=== PATIENT | male | born 1970 | race Caucasian/White ===

== ENCOUNTER 2018-03-14 09:14 | Emergency (ER) | payer OTHER, MEDICAID, SELFPAY ==
--- NOTE | 2018-03-14 09:15 | ED.SKABFB ---
HPI - Skin/Abscess/Foreign Bdy General Chief complaint: Skin/Abscess/Foreign Body Stated complaint: OPEN ULCERS ON LEG AND FOOT Time Seen by Provider: 03/14/18 09:15 Source: patient Mode of arrival: ambulatory Limitations: no limitations History of Present Illness HPI narrative: Patient is a 47-year-old male with a history of diabetes and congestive heart failure here for evaluation of sores on his bilateral lower extremities. Patient states that just over a year ago he had similar symptoms. Was under the care wound care. He states that the sores improved tremendously. He has not seen his primary care doctor in over a year or wound care in over a year. He states that over the past several weeks if not the past several months he has noticed the return of the sores especially to his left lower extremity. He did take some leftover antibiotics that he had at home. He does not know what these antibiotics were. His cover the wounds with bandages. He came in today because he thinks that the wounds were getting worse. He has had fevers in the past but none today. Related Data Home Medications Medication Instructions Recorded Confirmed amlodipine 20 mg PO DAILY 03/14/18 03/14/18 carvedilol 25 mg PO BID 03/14/18 03/14/18 hydrochlorothiazide 25 mg PO DAILY 03/14/18 03/14/18 lisinopril 40 mg PO DAILY 03/14/18 03/14/18 metformin 1,000 mg PO BID 03/14/18 03/14/18 Previous Rx's Medication Instructions Recorded aspirin 81 mg PO QDAY #30 06/06/16 glipizide [Glucotrol XL] 10 mg PO BID #60 tab 09/08/16 doxycycline hyclate 100 mg PO BID 7 Days #14 tab 03/14/18 Allergies Allergy/AdvReac Type Severity Reaction Status Date / Time No Known Drug Allergies Allergy Verified 03/14/18 09:41 Review of Systems Constitutional Denies fever(s) Cardiovascular Denies chest pain and Denies dyspnea Respiratory Denies dyspnea Gastrointestinal Gastrointestinal: Denies abdominal pain Musculoskeletal Denies myalgias and Denies arthralgias Integumentary/Breasts Denies rash Comments: Wounds on bilateral lower extremities Neurologic Comments: Some decreased sensation to light touch bilateral lower extremities Hematologic/Lymphatic Comments: Not on anticoagulation Allergic/Immunologic Denies urticaria PFSH Medical History Diabetes mellitus (Acute) Congestive heart failure (Acute) Diabetes (Acute) Surgical History No pertinent past surgical history (Acute) Social History Smoking Status: Never smoker Social History Smoking Status: Never smoker Exam Initial Vital Signs Initial Vital Signs: Vital Signs Temperature 98 F 03/14/18 09:28 Pulse Rate 80 03/14/18 09:28 Respiratory Rate 18 03/14/18 09:28 Blood Pressure 183/108 H 03/14/18 09:28 Pulse Oximetry 100 03/14/18 09:28 Const General: cooperative, comfortable, well developed, well groomed and No acute distress Orientation: alert, awake and oriented x3 [facility] Head: normal to inspection and normocephalic Resp Effort & Inspection: normal respiratory effort Auscultation: clear to auscultation bilaterally Cardio Rate: regular rate Rhythm: regular rhythm Pulses: radial pulses present Skin Other: Patient with a 2 cm lesion on his right anterior tibia. Not draining. No surrounding erythema. Does have crusting. Patient also with a 6 cm x 2 cm open wound on the lateral aspect of his right lower extremity proximal to the lateral malleolus. No surrounding erythema. It is draining material. Patient with multiple calluses on his feet. Patient also with a 5 cm x 8 cm wound on his left ft. Lateral aspect. Just proximal to the 4th and 5th digits. Is draining. Has surrounding erythema that does extend up to the ankle. Neuro General: alert, awake and oriented x3 Speech: speech normal Sensory Exam: no sensory deficits noted Extrem Other: See skin section for wounds. Otherwise lower extremities 1+ pitting edema. Psych Appearance: grossly normal Course Vital Signs - 8 hr 03/14/18 09:28 Temperature 98 F Pulse Rate 80 Respiratory Rate 18 Blood Pressure 183/108 H Pulse Oximetry 100 MDM - Skin/Abscess/Foreign Bdy MDM Narrative Medical decision making narrative: Patient is nontoxic appearing. Does have open wounds on bilateral lower extremities. The wound on the top of his left lower extremity does appear to be infected secondary to the inflammation around it. Will start him on antibiotics. I do not feel he needs admitted for IV antibiotics. I contacted his primary care doctor who is Dr. Ovalles and was able to schedule the patient a follow-up appointment on March 21 at 1030 in the morning. Patient was informed of this follow-up appointment. Also able to schedule the patient a wound care clinic appointment for March 15 at 0830 in the morning. Patient was informed of this consult as well. Patient was given return precautions. He expressed understanding and agreement with plan Discharge Plan Departure Patient Disposition: Home Clinical Impression: Foot ulcer, left Qualifiers: Non-pressure ulcer stage: unspecified non-pressure ulcer stage Qualified Code(s): L97.529 - Non-pressure chronic ulcer of other part of left foot with unspecified severity Ulcer of right leg Qualifiers: Non-pressure ulcer stage: unspecified non-pressure ulcer stage Qualified Code(s): L97.919 - Non-pressure chronic ulcer of unspecified part of right lower leg with unspecified severity Instructions: How to Prevent Pressure Ulcers Activity Restrictions/Additional Instructions: You have an appointment tomorrow morning with the wound care clinic here at [facility]. Their phone number is [phone]. That appointment is at 0830 in the morning. You also have an appointment with Dr. Ovalles at the clinic over at [place] on March 21 at 1030 in the morning. I do suggest you keep this appointment. If you cannot make it be sure to call them to reschedule. Take the antibiotics as directed. Return to the emergency department for any new or worsening symptoms Prescriptions: New doxycycline hyclate 100 mg tablet 100 mg PO BID 7 Days Qty: 14 RF: 0 No Action aspirin 81 MG tablet,delayed release (DR/EC) 81 mg PO QDAY Qty: 30 RF: 0 glipizide [Glucotrol XL] 5 MG tablet extended release 24hr 10 mg PO BID Qty: 60 RF: 0 metformin 500 mg Tablet 1,000 mg PO BID RF: 0 carvedilol 25 mg Tablet 25 mg PO BID RF: 0 amlodipine 10 mg Tablet 20 mg PO DAILY RF: 0 hydrochlorothiazide 25 mg Tablet 25 mg PO DAILY RF: 0 lisinopril 40 mg Tablet 40 mg PO DAILY RF: 0 Referrals: Haroldo Mcclain PA-C [Primary Care Provider] -
[2018-03-14 09:28] VITALS: BP 183/108; PULSE 80; RESP 18; TEMP 36.6; O2SAT 100
[2018-03-14 09:30] VITALS: BP 157/90; PULSE 80; RESP 17; O2SAT 100
[2018-03-14 10:11] VITALS: BP 110/69; PULSE 71; RESP 20; O2SAT 100
--- NOTE | 2018-03-14 10:11 | PC.NURSE ---
Foam dressing placed to left foot and to right lower leg.
--- NOTE | 2018-03-14 10:12 | PC.NURSE ---
I called over to wound care and set up an appointment for him for tomorrow morning at 0830 am. patient aware.
[2018-03-14 10:13] VITALS: BP 110/69; PULSE 73; RESP 16; O2SAT 100
== END 2018-03-14 10:10 | disposition home or self-care (01) ==
PROVIDERS: Emergency Provider Emergency Medicine; PCP Physician Assistant
DX: L97.529 Non-pressure chronic ulcer of other part of left foot with unspecified severity (principal); L97.919 Non-pressure chronic ulcer of unspecified part of right lower leg with unspecified severity
CPT/HCPCS: 99282

== ENCOUNTER → 2018-03-15 10:06 | Outpatient (CLI) | payer OTHER, MEDICAID, SELFPAY | PROVIDERS: Visit Provider Family Medicine | DX: E11.621 Type 2 diabetes mellitus with foot ulcer (principal); L97.523 Non-pressure chronic ulcer of other part of left foot with necrosis of muscle; I87.311 Chronic venous hypertension (idiopathic) with ulcer of right lower extremity; L97.812 Non-pressure chronic ulcer of other part of right lower leg with fat layer exposed; L03.116 Cellulitis of left lower limb | CPT/HCPCS: 11042; 11043; 87070; 87075; 87077; 87147; 87186; 87205; 99213; 99214 ==

== ENCOUNTER 2018-03-15 10:09 | Inpatient (IN) | payer OTHER, MEDICAID, SELFPAY ==
[2018-03-15] VITALS (10 sets, daily range): BP systolic 134–179; BP diastolic 75–113; PULSE 67–82; RESP 16–20; TEMP 36.6–37.1; O2SAT 97–100; BMI 54.1
--- NOTE | 2018-03-15 | DI.MRI.S_ITS ---
PROCEDURE: MR FOOT LT WO/W CON INDICATIONS: left foot ulcers,poss osteomyelitis. TECHNIQUE: Noncontrast sagittal T1 spin echo and T2 fast spin echo with fat saturation, long-axis T1 spin echo and T2 fast spin echo with fat saturation; short-axis T1 spin echo, proton density fast spin echo, and T2 fast spin echo with fat saturation through the forefoot. Post-contrast short axis, long axis, and sagittal T1 spin echo with fat saturation through the forefoot. COMPARISON: [facility], CR, XR FOOT LT MIN 3V, 03/15/2018, 12:25. FINDINGS: Image quality: There is mild motion artifact. Bones and joints: There is abnormal marrow edema and enhancement within the 5th metatarsal distally as well as within the 5th proximal phalanx. There is associated bony cortical erosion laterally within the distal aspect of the 5th metatarsal. Mild associated periosteal edema and enhancement demonstrated. The findings are consistent with osteomyelitis. There is deformity of the 5th metatarsal with mild medial angulation and bony remodeling consistent with sequelae of a prior fracture. Remaining visualized osseous structures demonstrate no abnormal edema or enhancement to suggest other foci of osteomyelitis. No acute fractures or bone contusion. Soft tissues: There are soft tissue ulcers laterally in the distal forefoot at the level of the 5th metatarsophalangeal joint and dorsally at the level of the 5th proximal phalanx. There is extensive associated subcutaneous edema and enhancement consistent with cellulitis extending to the underlying bone. No discrete abscess collection identified. There is edema and fatty atrophy of the plantar musculature including the lumbrical muscles without associated enhancement. Findings may represent reactive changes, denervation changes, or less likely myositis. The visualized tendons appear intact. The Lisfranc ligament also appears intact. IMPRESSION: 1. Soft tissue ulcers with a dorsal and lateral aspects of the forefoot at the level of the 5th proximal phalanx and 5th metatarsophalangeal joint with underlying osteomyelitis involving the 5th metatarsal and 5th proximal phalanx.No discrete abscess collection identified. 2. Deformity of the 5th metatarsal distally consistent with sequelae of a prior fracture. Dictated by: Nemesio Foreman M.D. on 03/16/2018 at 17:00 Approved by: Nemesio Foreman M.D. on 03/16/2018 at 17:30
--- NOTE | 2018-03-15 10:58 | DI.RAD.S_ITS ---
PROCEDURE: XR CHEST 1V INDICATIONS: suspected sepsis TECHNIQUE: One view of the chest was acquired. COMPARISON: [facility], , CHEST 1 VIEW, 06/05/2016, 19:49. FINDINGS: Surgical changes and devices: None. Lungs and pleura: Lungs are clear. No pleural effusions or pneumothorax. Minimal increased vascularity. Mediastinum: Mediastinal contours appear normal. Heart size is borderline in size. Bones and chest wall: No suspicious bony lesions. Overlying soft tissues appear unremarkable. IMPRESSION: Minimal increased vascularity. Dictated by: Heidy Youngblood M.D. on 03/15/2018 at 11:24 Approved by: Heidy Youngblood M.D. on 03/15/2018 at 11:31
[2018-03-15] MEDS: SODIUM CHLORIDE 0.9% 1,000 ML 1000 ML IV (11:05)
[2018-03-15 11:06] LABS: INR 1.1 (0.9-1.3); Prothrombin Time 12.3 SECONDS (10.1-12.7)
[2018-03-15 11:07] LABS: Add Manual Diff / Slide Review NO; Basophils Absolute Auto 0 /uL (0-100); Basophils Percent Auto 0.6 % (0-2); Eosinophils Absolute Auto 200 /uL (0-450); Eosinophils Percent Auto 2.8 % (2-4); Hematocrit 43.9 % (41-53); Hemoglobin 15.2 g/dL (13.5-17.5); Lymphocytes Absolute Auto 2300 /uL (1100-4500); Lymphocytes Percent Auto 30.6 % (25-40); Mean Corpuscular HGB Conc 34.5 % (30-36); Mean Corpuscular Hemoglobin 28.7 PG (26-34); Monocytes Absolute Auto 700 /uL (0-900); Monocytes Percent Auto 9.3 % (3-14); Neutrophils Absolute Auto 4300 /uL (1500-7000); Neutrophils Percent Auto 56.7 % (50-75); Platelet Count 336 X10^3/uL (150-400); Red Blood Cell Count 5.28 X10^6/uL (4.5-5.9); Red Cell Distribution Width 12.9 % (11.6-14.8); White Blood Cell Count 7.7 X10^3/uL (4.5-11.0)
[2018-03-15 11:08] LABS: PTT Partial Thromboplastin Tim 31 SECONDS (26.4-36.2)
[2018-03-15 11:12] LABS: Alanine Aminotransferase 59 IU/L (21-72); Albumin 4.2 g/dL (3.5-5.0); Albumin Globulin Ratio 1.1 (1.0-2.8); Alkaline Phosphatase 70 U/L (38-126); Aspartate Aminotransferase 43 IU/L (17-59); BUN Creatinine Ratio 23.8 (6-22); Bilirubin Total 0.7 mg/dL (0.2-1.3); Blood Urea Nitrogen 19 mg/dL (9-20); Calcium 9.1 mg/dL (8.4-10.2); Carbon Dioxide 27 mmol/L (22-32); Chloride 97 mmol/L (98-107); Estimated Glomerular Filt Rate > 60.0 mL/min (>60); Glucose 266 mg/dL (70-100); HEMOLYSIS < 15 (0-50); Lipase 279 U/L (23-300); Potassium 3.8 mmol/L (3.4-5.1); Sodium 137 mmol/L (137-145); Total Protein 8.2 g/dL (6.3-8.2)
--- NOTE | 2018-03-15 11:21 | PC.NURSE ---
Will remove dressings and re dress when MD exam.
[2018-03-15 11:27] LABS: Procalcitonin < 0.05 ng/mL (<0.5)
--- NOTE | 2018-03-15 12:11 | ED.SKABFB ---
HPI - Skin/Abscess/Foreign Bdy <DEDE Randle - Last Filed: 03/15/18 22:09> General Chief complaint: Skin/Abscess/Foreign Body Stated complaint: INFECTION ON LEFT FOOT/WOUNDS ON RIGHT LEG Time Seen by Provider: 03/15/18 11:04 Source: patient Mode of arrival: ambulatory Limitations: no limitations History of Present Illness HPI narrative: 47-year-old male with history of hypertension and type 2 diabetes that is a nonsmoker here for complaint of ulcerations to his lower extremities and to his left foot. He was seen in the emergency room yesterday and was placed on antibiotics doxycycline. He states he taking 1 dose of the antibiotic. he was followed up at wound Care today were debridement was done after debridement they sent him back to the emergency room due to concern of the ulcerations especially to the left lateral foot and the depth that it obtained. He has not had a fever. wound has been serosanguineous/purulent drainage. no trauma to the area. He does have a history of having ulcerations to his lower extremities and has had multiple visits to a wound care over the last year. He denies any trauma to the lower extremities. Related Data Home Medications Medication Instructions Recorded Confirmed amlodipine 10 mg PO DAILY 03/14/18 03/15/18 carvedilol 25 mg PO 1300 03/14/18 03/15/18 lisinopril 40 mg PO DAILY 03/14/18 03/15/18 metformin 1,000 mg PO BID 03/14/18 03/15/18 chlorthalidone 25 mg PO DAILY 03/15/18 03/15/18 glipizide 10 mg PO BID 03/15/18 03/15/18 Previous Rx's Medication Instructions Recorded doxycycline hyclate 100 mg PO BID 7 Days #14 tab 03/14/18 Allergies Allergy/AdvReac Type Severity Reaction Status Date / Time No Known Drug Allergies Allergy Verified 03/14/18 09:41 Review of Systems <DEDE Randle - Last Filed: 03/15/18 22:09> Constitutional Denies chills, Denies fever(s), Denies lethargy and Denies weakness Eyes Denies change in vision, Denies eye discharge, Denies irritation and Denies loss of vision ENT Ears, Nose, Mouth, and Throat: Denies change in voice, Denies neck pain and Denies sore throat Cardiovascular Denies chest pain, Denies irregular heart rhythm, Denies lightheadedness, Denies palpitations, Denies dyspnea, Denies dyspnea on exertion and Denies orthopnea Respiratory Denies cough, Denies dyspnea, Denies dyspnea on exertion and Denies wheezing Gastrointestinal Gastrointestinal: Denies abdominal pain, Denies change in bowel habits, Denies diarrhea, Denies nausea and Denies vomiting Genitourinary Denies hematuria, Denies flank pain, Denies urinary incontinence and Denies urinary urgency Musculoskeletal Denies neck pain Comments: Ulcerations to bilateral lower extremities Integumentary/Breasts Denies pruritus, Denies erythema, Denies rash and Denies wounds Neurologic Denies confusion, Denies loss of vision and Denies weakness Psychiatric Denies anxiety, Denies confusion, Denies depression, Denies homicidal ideation and Denies suicidal ideation Endocrine Denies palpitations Hematologic/Lymphatic Denies easy bruising Allergic/Immunologic Denies wheezing PFSH <DEDE Randle - Last Filed: 03/15/18 22:09> Medical History Congestive heart failure (Acute) Diabetes (Acute) Diabetes mellitus (Acute) Surgical History No pertinent past surgical history (Acute) Social History Smoking Status: Never smoker Social History household members: spouse and children Smoking Status: Former smoker alcohol intake: never Exam <DEDE Randle - Last Filed: 03/15/18 22:09> Initial Vital Signs Initial Vital Signs: Vital Signs Temperature 98.5 F 03/15/18 10:10 Pulse Rate 77 03/15/18 10:10 Respiratory Rate 20 03/15/18 10:10 Blood Pressure 170/101 H 03/15/18 10:10 Pulse Oximetry 98 03/15/18 10:10 Const General: cooperative and well developed Nutritional Appearance: well nourished Orientation: alert, awake, oriented x3 and not confused HENMT Mouth: oral mucosae normal and moist mucous membranes Eyes Conjunctivae: conjunctivae normal Sclera: sclerae normal Pupils: PERRL EOM: EOM intact bilaterally Neck Neck: normal visual inspection, trachea midline, No lymphadenopathy, No midline deformity and No JVD Lymphatic: No lymphedema Resp Effort & Inspection: normal respiratory effort, able to speak in complete sentences, no respiratory distress and no use of accessory muscles Auscultation: clear to auscultation bilaterally, no rales, no rhonchi and no wheezes Cardio Rate: regular rate Rhythm: regular rhythm Heart Sounds: no click, no gallops, no murmurs and no rubs Pulses: normal peripheral pulses Neuro General: alert, oriented x3, gait normal and no focal motor deficits Speech: speech normal Extrem Other: stage II pressure ulcers to anterior right garcia and also to right lateral foot. Stage 3-4 pressure ulcers to the lateral left foot distal sensation is intact. Distal range of motion is intact. Distal pulses are intact. <Bhavna Gregory DO - Last Filed: 03/16/18 08:21> Initial Vital Signs Initial Vital Signs: Vital Signs Temperature 98.5 F 03/15/18 10:10 Pulse Rate 77 03/15/18 10:10 Respiratory Rate 20 03/15/18 10:10 Blood Pressure 170/101 H 03/15/18 10:10 Pulse Oximetry 98 03/15/18 10:10 Course <DEDE Randle - Last Filed: 03/15/18 22:09> Orders Ordered: ED Orders 03/16/18 15:30 Vancomycin Trough Urgent Acetaminophen (Tylenol) 650 mg PO Q6HR PRN PRN Reason: As Needed for Fever/Mild Pain Last Admin: 03/15/18 20:53 Dose: 650 mg Amlodipine Besylate (Norvasc) 10 mg PO DAILY [facility] Carvedilol (Coreg) 25 mg PO 1300 [facility] Chlorthalidone (Hygroton) 25 mg PO DAILY [facility] Glipizide (Glucotrol) 10 mg PO BID [facility] Last Admin: 03/15/18 20:47 Dose: 10 mg Ceftriaxone Sodium/Dextrose (Rocephin) 2 gm in 50 mls @ 100 mls/hr IV Q24H [facility] Sodium Chloride (Normal Saline 0.9%) 250 mls @ 21 mls/hr IV Q24H PRN PRN Reason: Flush Vancomycin HCl 1,500 mg/ (Sodium Chloride) 500 mls @ 333.333 mls/hr IV Q8H [facility] Insulin Aspart (Novolog Flexpen) 0 unit SUBCUT Q6H [facility]; Protocol Last Admin: 03/16/18 04:08 Dose: Not Given Admin: 03/15/18 20:48 Dose: 5 unit Admin: 03/15/18 16:58 Dose: 1 unit Lisinopril (Zestril) 40 mg PO DAILY [facility] Magnesium Hydroxide (Milk Of Magnesia) 30 ml PO DAILY PRN PRN Reason: Constipation Metformin HCl (Glucophage) 1,000 mg PO BID [facility] Last Admin: 03/15/18 20:47 Dose: 1,000 mg Sodium Chloride (Normal Saline 0.9% Flush) 10 ml IV PRN PRN PRN Reason: Flush Last Admin: 03/16/18 00:10 Dose: 10 ml Sodium Chloride (Normal Saline 0.9% Flush) 10 ml IV BID [facility] Vancomycin HCl (Vancomycin Trough) 1 request MISC NOW ONE Stop: 03/16/18 15:31 Discontinued Medications Carvedilol (Coreg) 25 mg PO NOW ONE Stop: 03/15/18 16:03 Last Admin: 03/15/18 16:57 Dose: 25 mg Sodium Chloride (Normal Saline 0.9%) 1,000 mls @ 1,000 mls/hr IV BOLUS ONE Stop: 03/15/18 11:57 Last Infusion: 03/15/18 11:58 Dose: 0 mls/hr Admin: 03/15/18 11:05 Dose: 1,000 mls/hr Vancomycin HCl 2,000 mg/ (Sodium Chloride) 500 mls @ 250 mls/hr IV NOW ONE Stop: 03/15/18 13:23 Last Infusion: 03/15/18 21:20 Dose: 0 mls/hr Admin: 03/15/18 15:46 Dose: 250 mls/hr Ceftriaxone Sodium/Dextrose (Rocephin) 2 gm in 50 mls @ 100 mls/hr IV NOW ONE Stop: 03/15/18 13:51 Last Infusion: 03/15/18 14:32 Dose: 0 mls/hr Admin: 03/15/18 13:47 Dose: 100 mls/hr Vancomycin HCl 1,500 mg/ (Sodium Chloride) 500 mls @ 333.333 mls/hr IV Q8HR [facility] Last Infusion: 03/16/18 02:04 Dose: 0 mls/hr Admin: 03/16/18 00:10 Dose: 333.333 mls/hr Influenza Virus Vaccine (Flu Vaccine) 0.5 ml IM .ONCE ONE Stop: 03/15/18 15:00 Last Admin: 03/15/18 18:03 Dose: Not Given Vancomycin HCl (Vancomycin Per Pharmacy) 1 request MISC NOW ONE Stop: 03/15/18 15:49 Last Admin: 03/15/18 17:44 Dose: Not Given Vital Signs - 8 hr 03/16/18 00:45 03/16/18 04:00 03/16/18 08:09 Temperature 98.4 F 98.4 F Pulse Rate 66 73 Respiratory Rate 16 16 Blood Pressure 116/75 151/98 H Pulse Oximetry 98 95 97 <Bhavna Gregory DO - Last Filed: 03/16/18 08:21> Orders Ordered: ED Orders 03/16/18 15:30 Vancomycin Trough Urgent Acetaminophen (Tylenol) 650 mg PO Q6HR PRN PRN Reason: As Needed for Fever/Mild Pain Last Admin: 03/15/18 20:53 Dose: 650 mg Amlodipine Besylate (Norvasc) 10 mg PO DAILY [facility] Carvedilol (Coreg) 25 mg PO 1300 [facility] Chlorthalidone (Hygroton) 25 mg PO DAILY [facility] Glipizide (Glucotrol) 10 mg PO BID [facility] Last Admin: 03/15/18 20:47 Dose: 10 mg Ceftriaxone Sodium/Dextrose (Rocephin) 2 gm in 50 mls @ 100 mls/hr IV Q24H [facility] Sodium Chloride (Normal Saline 0.9%) 250 mls @ 21 mls/hr IV Q24H PRN PRN Reason: Flush Vancomycin HCl 1,500 mg/ (Sodium Chloride) 500 mls @ 333.333 mls/hr IV Q8H [facility] Insulin Aspart (Novolog Flexpen) 0 unit SUBCUT Q6H [facility]; Protocol Last Admin: 03/16/18 04:08 Dose: Not Given Admin: 03/15/18 20:48 Dose: 5 unit Admin: 03/15/18 16:58 Dose: 1 unit Lisinopril (Zestril) 40 mg PO DAILY [facility] Magnesium Hydroxide (Milk Of Magnesia) 30 ml PO DAILY PRN PRN Reason: Constipation Metformin HCl (Glucophage) 1,000 mg PO BID [facility] Last Admin: 03/15/18 20:47 Dose: 1,000 mg Sodium Chloride (Normal Saline 0.9% Flush) 10 ml IV PRN PRN PRN Reason: Flush Last Admin: 03/16/18 00:10 Dose: 10 ml Sodium Chloride (Normal Saline 0.9% Flush) 10 ml IV BID [facility] Vancomycin HCl (Vancomycin Trough) 1 request MISC NOW ONE Stop: 03/16/18 15:31 Discontinued Medications Carvedilol (Coreg) 25 mg PO NOW ONE Stop: 03/15/18 16:03 Last Admin: 03/15/18 16:57 Dose: 25 mg Sodium Chloride (Normal Saline 0.9%) 1,000 mls @ 1,000 mls/hr IV BOLUS ONE Stop: 03/15/18 11:57 Last Infusion: 03/15/18 11:58 Dose: 0 mls/hr Admin: 03/15/18 11:05 Dose: 1,000 mls/hr Vancomycin HCl 2,000 mg/ (Sodium Chloride) 500 mls @ 250 mls/hr IV NOW ONE Stop: 03/15/18 13:23 Last Infusion: 03/15/18 21:20 Dose: 0 mls/hr Admin: 03/15/18 15:46 Dose: 250 mls/hr Ceftriaxone Sodium/Dextrose (Rocephin) 2 gm in 50 mls @ 100 mls/hr IV NOW ONE Stop: 03/15/18 13:51 Last Infusion: 03/15/18 14:32 Dose: 0 mls/hr Admin: 03/15/18 13:47 Dose: 100 mls/hr Vancomycin HCl 1,500 mg/ (Sodium Chloride) 500 mls @ 333.333 mls/hr IV Q8HR [facility] Last Infusion: 03/16/18 02:04 Dose: 0 mls/hr Admin: 03/16/18 00:10 Dose: 333.333 mls/hr Influenza Virus Vaccine (Flu Vaccine) 0.5 ml IM .ONCE ONE Stop: 03/15/18 15:00 Last Admin: 03/15/18 18:03 Dose: Not Given Vancomycin HCl (Vancomycin Per Pharmacy) 1 request MISC NOW ONE Stop: 03/15/18 15:49 Last Admin: 03/15/18 17:44 Dose: Not Given Vital Signs - 8 hr 03/16/18 00:45 03/16/18 04:00 03/16/18 08:09 Temperature 98.4 F 98.4 F Pulse Rate 66 73 Respiratory Rate 16 16 Blood Pressure 116/75 151/98 H Pulse Oximetry 98 95 97 MDM - Skin/Abscess/Foreign Bdy <DEDE Randle - Last Filed: 03/15/18 22:09> Lab Data Result diagrams: 03/15/18 10:25 03/15/18 10:25 Lab Results 03/15/18 03/15/18 03/15/18 Range/Units 10:25 10:25 10:25 WBC 7.7 (4.5-11.0) X10^3/uL RBC 5.28 (4.5-5.9) X10^6/uL Hgb 15.2 (13.5-17.5) g/dL Hct 43.9 (41-53) % MCV 83.0 (80-100) fL MCH 28.7 (26-34) PG MCHC 34.5 (30-36) % RDW 12.9 (11.6-14.8) % Plt Count 336 (150-400) X10^3/uL Neut % (Auto) 56.7 (50-75) % Lymph % (Auto) 30.6 (25-40) % [place] % (Auto) 9.3 (3-14) % Eos % (Auto) 2.8 (2-4) % Baso % (Auto) 0.6 (0-2) % Neut # (Auto) 4300 (9644-6586) /uL Lymph # (Auto) 2300 (7541-2134) /uL [place] # (Auto) 700 (0-900) /uL Eos # (Auto) 200 (0-450) /uL Baso # (Auto) 0 (0-100) /uL ESR (0-15) MM/HR PT 12.3 (10.1-12.7) SECONDS INR 1.1 (0.9-1.3) APTT 31 (26.4-36.2) SECONDS Sodium (137-145) mmol/L Potassium (3.4-5.1) mmol/L Chloride (98-107) mmol/L Carbon Dioxide (22-32) mmol/L BUN (9-20) mg/dL Creatinine (0.66-1.25) mg/dL Estimated GFR (>60) mL/min BUN/Creatinine Ratio (6-22) Glucose (70-100) mg/dL Hemoglobin A1c Lactate (0.7-2.1) mmol/L Calcium (8.4-10.2) mg/dL Total Bilirubin (0.2-1.3) mg/dL AST (17-59) IU/L ALT (21-72) IU/L Alkaline Phosphatase (38-126) U/L C-Reactive Protein (<1.0) mg/dL Total Protein (6.3-8.2) g/dL Albumin (3.5-5.0) g/dL Globulin (1.7-4.1) g/dL Albumin/Globulin Ratio (1.0-2.8) Lipase (23-300) U/L Procalcitonin < 0.05 (<0.5) ng/mL Urine Color Urine Appearance Urine pH (4.5-8.0) Ur Specific [place] (1.000-1.035) Urine Protein (Negative) Urine Glucose (UA) (Negative) g/dL Urine Ketones (NEGATIVE) Urine Occult Blood (Negative) Urine Nitrate (Negative) Urine Bilirubin (NEGATIVE) Urine Urobilinogen (0.2) E.U./dL Ur Leukocyte Esterase (NEGATIVE) Urine RBC (0-5/HPF) Urine WBC (0-5/HPF) Urine Bacteria (None) Ur Culture Indicated? Micro UA Comment 03/15/18 03/15/18 03/15/18 Range/Units 10:25 10:25 10:25 WBC (4.5-11.0) X10^3/uL RBC (4.5-5.9) X10^6/uL Hgb (13.5-17.5) g/dL Hct (41-53) % MCV (80-100) fL MCH (26-34) PG MCHC (30-36) % RDW (11.6-14.8) % Plt Count (150-400) X10^3/uL Neut % (Auto) (50-75) % Lymph % (Auto) (25-40) % [place] % (Auto) (3-14) % Eos % (Auto) (2-4) % Baso % (Auto) (0-2) % Neut # (Auto) (7288-5871) /uL Lymph # (Auto) (0258-4497) /uL [place] # (Auto) (0-900) /uL Eos # (Auto) (0-450) /uL Baso # (Auto) (0-100) /uL ESR 19 H (0-15) MM/HR PT (10.1-12.7) SECONDS INR (0.9-1.3) APTT (26.4-36.2) SECONDS Sodium 137 (137-145) mmol/L Potassium 3.8 (3.4-5.1) mmol/L Chloride 97 L (98-107) mmol/L Carbon Dioxide 27 (22-32) mmol/L BUN 19 (9-20) mg/dL Creatinine 0.80 (0.66-1.25) mg/dL Estimated GFR > 60.0 (>60) mL/min BUN/Creatinine Ratio 23.8 H (6-22) Glucose 266 H (70-100) mg/dL Hemoglobin A1c Lactate 1.0 (0.7-2.1) mmol/L Calcium 9.1 (8.4-10.2) mg/dL Total Bilirubin 0.7 (0.2-1.3) mg/dL AST 43 (17-59) IU/L ALT 59 (21-72) IU/L Alkaline Phosphatase 70 (38-126) U/L C-Reactive Protein (<1.0) mg/dL Total Protein 8.2 (6.3-8.2) g/dL Albumin 4.2 (3.5-5.0) g/dL Globulin 4.0 (1.7-4.1) g/dL Albumin/Globulin Ratio 1.1 (1.0-2.8) Lipase 279 (23-300) U/L Procalcitonin (<0.5) ng/mL Urine Color Urine Appearance Urine pH (4.5-8.0) Ur Specific [place] (1.000-1.035) Urine Protein (Negative) Urine Glucose (UA) (Negative) g/dL Urine Ketones (NEGATIVE) Urine Occult Blood (Negative) Urine Nitrate (Negative) Urine Bilirubin (NEGATIVE) Urine Urobilinogen (0.2) E.U./dL Ur Leukocyte Esterase (NEGATIVE) Urine RBC (0-5/HPF) Urine WBC (0-5/HPF) Urine Bacteria (None) Ur Culture Indicated? Micro UA Comment 03/15/18 03/15/18 03/15/18 Range/Units 10:25 10:25 10:25 WBC (4.5-11.0) X10^3/uL RBC (4.5-5.9) X10^6/uL Hgb (13.5-17.5) g/dL Hct (41-53) % MCV (80-100) fL MCH (26-34) PG MCHC (30-36) % RDW (11.6-14.8) % Plt Count (150-400) X10^3/uL Neut % (Auto) (50-75) % Lymph % (Auto) (25-40) % [place] % (Auto) (3-14) % Eos % (Auto) (2-4) % Baso % (Auto) (0-2) % Neut # (Auto) (0140-7563) /uL Lymph # (Auto) (9382-3156) /uL [place] # (Auto) (0-900) /uL Eos # (Auto) (0-450) /uL Baso # (Auto) (0-100) /uL ESR (0-15) MM/HR PT (10.1-12.7) SECONDS INR (0.9-1.3) APTT (26.4-36.2) SECONDS Sodium (137-145) mmol/L Potassium (3.4-5.1) mmol/L Chloride (98-107) mmol/L Carbon Dioxide (22-32) mmol/L BUN (9-20) mg/dL Creatinine (0.66-1.25) mg/dL Estimated GFR (>60) mL/min BUN/Creatinine Ratio (6-22) Glucose (70-100) mg/dL Hemoglobin A1c Cancelled 10.9 H Lactate (0.7-2.1) mmol/L Calcium (8.4-10.2) mg/dL Total Bilirubin (0.2-1.3) mg/dL AST (17-59) IU/L ALT (21-72) IU/L Alkaline Phosphatase (38-126) U/L C-Reactive Protein 3.1 H (<1.0) mg/dL Total Protein (6.3-8.2) g/dL Albumin (3.5-5.0) g/dL Globulin (1.7-4.1) g/dL Albumin/Globulin Ratio (1.0-2.8) Lipase (23-300) U/L Procalcitonin (<0.5) ng/mL Urine Color Urine Appearance Urine pH (4.5-8.0) Ur Specific [place] (1.000-1.035) Urine Protein (Negative) Urine Glucose (UA) (Negative) g/dL Urine Ketones (NEGATIVE) Urine Occult Blood (Negative) Urine Nitrate (Negative) Urine Bilirubin (NEGATIVE) Urine Urobilinogen (0.2) E.U./dL Ur Leukocyte Esterase (NEGATIVE) Urine RBC (0-5/HPF) Urine WBC (0-5/HPF) Urine Bacteria (None) Ur Culture Indicated? Micro UA Comment 03/15/18 Range/Units 17:00 WBC (4.5-11.0) X10^3/uL RBC (4.5-5.9) X10^6/uL Hgb (13.5-17.5) g/dL Hct (41-53) % MCV (80-100) fL MCH (26-34) PG MCHC (30-36) % RDW (11.6-14.8) % Plt Count (150-400) X10^3/uL Neut % (Auto) (50-75) % Lymph % (Auto) (25-40) % [place] % (Auto) (3-14) % Eos % (Auto) (2-4) % Baso % (Auto) (0-2) % Neut # (Auto) (2591-8548) /uL Lymph # (Auto) (0419-1573) /uL [place] # (Auto) (0-900) /uL Eos # (Auto) (0-450) /uL Baso # (Auto) (0-100) /uL ESR (0-15) MM/HR PT (10.1-12.7) SECONDS INR (0.9-1.3) APTT (26.4-36.2) SECONDS Sodium (137-145) mmol/L Potassium (3.4-5.1) mmol/L Chloride (98-107) mmol/L Carbon Dioxide (22-32) mmol/L BUN (9-20) mg/dL Creatinine (0.66-1.25) mg/dL Estimated GFR (>60) mL/min BUN/Creatinine Ratio (6-22) Glucose (70-100) mg/dL Hemoglobin A1c Lactate (0.7-2.1) mmol/L Calcium (8.4-10.2) mg/dL Total Bilirubin (0.2-1.3) mg/dL AST (17-59) IU/L ALT (21-72) IU/L Alkaline Phosphatase (38-126) U/L C-Reactive Protein (<1.0) mg/dL Total Protein (6.3-8.2) g/dL Albumin (3.5-5.0) g/dL Globulin (1.7-4.1) g/dL Albumin/Globulin Ratio (1.0-2.8) Lipase (23-300) U/L Procalcitonin (<0.5) ng/mL Urine Color Yellow Urine Appearance Clear Urine pH 7.0 (4.5-8.0) Ur Specific [place] 1.015 (1.000-1.035) Urine Protein Negative (Negative) Urine Glucose (UA) Negative (Negative) g/dL Urine Ketones Negative (NEGATIVE) Urine Occult Blood Negative (Negative) Urine Nitrate Negative (Negative) Urine Bilirubin Negative (NEGATIVE) Urine Urobilinogen 0.2 (0.2) E.U./dL Ur Leukocyte Esterase Negative (NEGATIVE) Urine RBC None seen (0-5/HPF) Urine WBC None seen (0-5/HPF) Urine Bacteria None seen (None) Ur Culture Indicated? Cult not indicated Micro UA Comment Microscopic normal Point of Care Testing Glucose POC 145 MDM Narrative Medical decision making narrative: CBC was obtained shows normal white count. Procalcitonin and lactate were unremarkable. Chem panel was unremarkable with the exception of elevated glucose at 279. x-ray of the left foot was obtained and shows findings concerning for bony involvement of infection /osteomyelitis. due to worsening condition and indication of bony involvement. Patient is admitted for IV antibiotics he was placed on Rocephin and vancomycin. blood cultures are pending. Procalcitonin and lactate were normal. Wound cultures were obtained at the wound clinic today and are pending. Discussed case with Dr. Kennedy who accepted patient. <Bhavna rGegory, DO - Last Filed: 03/16/18 08:21> Lab Data Lab Results 03/15/18 03/15/18 03/15/18 Range/Units 10:25 10:25 10:25 WBC 7.7 (4.5-11.0) X10^3/uL RBC 5.28 (4.5-5.9) X10^6/uL Hgb 15.2 (13.5-17.5) g/dL Hct 43.9 (41-53) % MCV 83.0 (80-100) fL MCH 28.7 (26-34) PG MCHC 34.5 (30-36) % RDW 12.9 (11.6-14.8) % Plt Count 336 (150-400) X10^3/uL Neut % (Auto) 56.7 (50-75) % Lymph % (Auto) 30.6 (25-40) % [place] % (Auto) 9.3 (3-14) % Eos % (Auto) 2.8 (2-4) % Baso % (Auto) 0.6 (0-2) % Neut # (Auto) 4300 (1288-1290) /uL Lymph # (Auto) 2300 (5237-3032) /uL [place] # (Auto) 700 (0-900) /uL Eos # (Auto) 200 (0-450) /uL Baso # (Auto) 0 (0-100) /uL ESR (0-15) MM/HR PT 12.3 (10.1-12.7) SECONDS INR 1.1 (0.9-1.3) APTT 31 (26.4-36.2) SECONDS Sodium (137-145) mmol/L Potassium (3.4-5.1) mmol/L Chloride (98-107) mmol/L Carbon Dioxide (22-32) mmol/L BUN (9-20) mg/dL Creatinine (0.66-1.25) mg/dL Estimated GFR (>60) mL/min BUN/Creatinine Ratio (6-22) Glucose (70-100) mg/dL Hemoglobin A1c Lactate (0.7-2.1) mmol/L Calcium (8.4-10.2) mg/dL Total Bilirubin (0.2-1.3) mg/dL AST (17-59) IU/L ALT (21-72) IU/L Alkaline Phosphatase (38-126) U/L C-Reactive Protein (<1.0) mg/dL Total Protein (6.3-8.2) g/dL Albumin (3.5-5.0) g/dL Globulin (1.7-4.1) g/dL Albumin/Globulin Ratio (1.0-2.8) Lipase (23-300) U/L Procalcitonin < 0.05 (<0.5) ng/mL Urine Color Urine Appearance Urine pH (4.5-8.0) Ur Specific [place] (1.000-1.035) Urine Protein (Negative) Urine Glucose (UA) (Negative) g/dL Urine Ketones (NEGATIVE) Urine Occult Blood (Negative) Urine Nitrate (Negative) Urine Bilirubin (NEGATIVE) Urine Urobilinogen (0.2) E.U./dL Ur Leukocyte Esterase (NEGATIVE) Urine RBC (0-5/HPF) Urine WBC (0-5/HPF) Urine Bacteria (None) Ur Culture Indicated? Micro UA Comment 03/15/18 03/15/18 03/15/18 Range/Units 10:25 10:25 10:25 WBC (4.5-11.0) X10^3/uL RBC (4.5-5.9) X10^6/uL Hgb (13.5-17.5) g/dL Hct (41-53) % MCV (80-100) fL MCH (26-34) PG MCHC (30-36) % RDW (11.6-14.8) % Plt Count (150-400) X10^3/uL Neut % (Auto) (50-75) % Lymph % (Auto) (25-40) % [place] % (Auto) (3-14) % Eos % (Auto) (2-4) % Baso % (Auto) (0-2) % Neut # (Auto) (9633-6056) /uL Lymph # (Auto) (7533-5594) /uL [place] # (Auto) (0-900) /uL Eos # (Auto) (0-450) /uL Baso # (Auto) (0-100) /uL ESR 19 H (0-15) MM/HR PT (10.1-12.7) SECONDS INR (0.9-1.3) APTT (26.4-36.2) SECONDS Sodium 137 (137-145) mmol/L Potassium 3.8 (3.4-5.1) mmol/L Chloride 97 L (98-107) mmol/L Carbon Dioxide 27 (22-32) mmol/L BUN 19 (9-20) mg/dL Creatinine 0.80 (0.66-1.25) mg/dL Estimated GFR > 60.0 (>60) mL/min BUN/Creatinine Ratio 23.8 H (6-22) Glucose 266 H (70-100) mg/dL Hemoglobin A1c Lactate 1.0 (0.7-2.1) mmol/L Calcium 9.1 (8.4-10.2) mg/dL Total Bilirubin 0.7 (0.2-1.3) mg/dL AST 43 (17-59) IU/L ALT 59 (21-72) IU/L Alkaline Phosphatase 70 (38-126) U/L C-Reactive Protein (<1.0) mg/dL Total Protein 8.2 (6.3-8.2) g/dL Albumin 4.2 (3.5-5.0) g/dL Globulin 4.0 (1.7-4.1) g/dL Albumin/Globulin Ratio 1.1 (1.0-2.8) Lipase 279 (23-300) U/L Procalcitonin (<0.5) ng/mL Urine Color Urine Appearance Urine pH (4.5-8.0) Ur Specific [place] (1.000-1.035) Urine Protein (Negative) Urine Glucose (UA) (Negative) g/dL Urine Ketones (NEGATIVE) Urine Occult Blood (Negative) Urine Nitrate (Negative) Urine Bilirubin (NEGATIVE) Urine Urobilinogen (0.2) E.U./dL Ur Leukocyte Esterase (NEGATIVE) Urine RBC (0-5/HPF) Urine WBC (0-5/HPF) Urine Bacteria (None) Ur Culture Indicated? Micro UA Comment 03/15/18 03/15/18 03/15/18 Range/Units 10:25 10:25 10:25 WBC (4.5-11.0) X10^3/uL RBC (4.5-5.9) X10^6/uL Hgb (13.5-17.5) g/dL Hct (41-53) % MCV (80-100) fL MCH (26-34) PG MCHC (30-36) % RDW (11.6-14.8) % Plt Count (150-400) X10^3/uL Neut % (Auto) (50-75) % Lymph % (Auto) (25-40) % [place] % (Auto) (3-14) % Eos % (Auto) (2-4) % Baso % (Auto) (0-2) % Neut # (Auto) (8919-2611) /uL Lymph # (Auto) (3174-5006) /uL [place] # (Auto) (0-900) /uL Eos # (Auto) (0-450) /uL Baso # (Auto) (0-100) /uL ESR (0-15) MM/HR PT (10.1-12.7) SECONDS INR (0.9-1.3) APTT (26.4-36.2) SECONDS Sodium (137-145) mmol/L Potassium (3.4-5.1) mmol/L Chloride (98-107) mmol/L Carbon Dioxide (22-32) mmol/L BUN (9-20) mg/dL Creatinine (0.66-1.25) mg/dL Estimated GFR (>60) mL/min BUN/Creatinine Ratio (6-22) Glucose (70-100) mg/dL Hemoglobin A1c Cancelled 10.9 H Lactate (0.7-2.1) mmol/L Calcium (8.4-10.2) mg/dL Total Bilirubin (0.2-1.3) mg/dL AST (17-59) IU/L ALT (21-72) IU/L Alkaline Phosphatase (38-126) U/L C-Reactive Protein 3.1 H (<1.0) mg/dL Total Protein (6.3-8.2) g/dL Albumin (3.5-5.0) g/dL Globulin (1.7-4.1) g/dL Albumin/Globulin Ratio (1.0-2.8) Lipase (23-300) U/L Procalcitonin (<0.5) ng/mL Urine Color Urine Appearance Urine pH (4.5-8.0) Ur Specific [place] (1.000-1.035) Urine Protein (Negative) Urine Glucose (UA) (Negative) g/dL Urine Ketones (NEGATIVE) Urine Occult Blood (Negative) Urine Nitrate (Negative) Urine Bilirubin (NEGATIVE) Urine Urobilinogen (0.2) E.U./dL Ur Leukocyte Esterase (NEGATIVE) Urine RBC (0-5/HPF) Urine WBC (0-5/HPF) Urine Bacteria (None) Ur Culture Indicated? Micro UA Comment 03/15/18 Range/Units 17:00 WBC (4.5-11.0) X10^3/uL RBC (4.5-5.9) X10^6/uL Hgb (13.5-17.5) g/dL Hct (41-53) % MCV (80-100) fL MCH (26-34) PG MCHC (30-36) % RDW (11.6-14.8) % Plt Count (150-400) X10^3/uL Neut % (Auto) (50-75) % Lymph % (Auto) (25-40) % [place] % (Auto) (3-14) % Eos % (Auto) (2-4) % Baso % (Auto) (0-2) % Neut # (Auto) (0293-6643) /uL Lymph # (Auto) (1781-5275) /uL [place] # (Auto) (0-900) /uL Eos # (Auto) (0-450) /uL Baso # (Auto) (0-100) /uL ESR (0-15) MM/HR PT (10.1-12.7) SECONDS INR (0.9-1.3) APTT (26.4-36.2) SECONDS Sodium (137-145) mmol/L Potassium (3.4-5.1) mmol/L Chloride (98-107) mmol/L Carbon Dioxide (22-32) mmol/L BUN (9-20) mg/dL Creatinine (0.66-1.25) mg/dL Estimated GFR (>60) mL/min BUN/Creatinine Ratio (6-22) Glucose (70-100) mg/dL Hemoglobin A1c Lactate (0.7-2.1) mmol/L Calcium (8.4-10.2) mg/dL Total Bilirubin (0.2-1.3) mg/dL AST (17-59) IU/L ALT (21-72) IU/L Alkaline Phosphatase (38-126) U/L C-Reactive Protein (<1.0) mg/dL Total Protein (6.3-8.2) g/dL Albumin (3.5-5.0) g/dL Globulin (1.7-4.1) g/dL Albumin/Globulin Ratio (1.0-2.8) Lipase (23-300) U/L Procalcitonin (<0.5) ng/mL Urine Color Yellow Urine Appearance Clear Urine pH 7.0 (4.5-8.0) Ur Specific [place] 1.015 (1.000-1.035) Urine Protein Negative (Negative) Urine Glucose (UA) Negative (Negative) g/dL Urine Ketones Negative (NEGATIVE) Urine Occult Blood Negative (Negative) Urine Nitrate Negative (Negative) Urine Bilirubin Negative (NEGATIVE) Urine Urobilinogen 0.2 (0.2) E.U./dL Ur Leukocyte Esterase Negative (NEGATIVE) Urine RBC None seen (0-5/HPF) Urine WBC None seen (0-5/HPF) Urine Bacteria None seen (None) Ur Culture Indicated? 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 Ulcer of right leg Qualifiers: Non-pressure ulcer stage: unspecified non-pressure ulcer stage Qualified Code(s): L97.919 - Non-pressure chronic ulcer of unspecified part of right lower leg with unspecified severity Foot ulcer, left Qualifiers: Non-pressure ulcer stage: with fat layer exposed Qualified Code(s): L97.522 - Non-pressure chronic ulcer of other part of left foot with fat layer exposed Discharge Date/Time: 03/15/18 14:32 Interventions: ED Discharge Assessment Last Done: 03/15/18 14:01 Admit Date/Time: 03/15/18 13:44 Admit Provider: Eugene Kennedy <Bhavna Gregory DO - Last Filed: 03/16/18 08:21> Cosign ED Attending Cosignature Attestation: I was immediately available in the department for consultation, case was discussed. This documentation has been reviewed and I agree with assessment and plan. Supervised by Bhavna Gregory DO
--- NOTE | 2018-03-15 12:21 | DI.RAD.S_ITS ---
PROCEDURE: XR FOOT LT MIN 3V INDICATIONS: Pressure/ diabetic ulcer to left lateral foot TECHNIQUE: 3 views of the foot were acquired. COMPARISON: None. FINDINGS: Bones: Deformity involving the head of the 5th metatarsal is evident, likely related to previous healed fracture. Erosive changes at the head is present. There may also be erosive changes or lucency involving the adjacent 5th proximal phalanx base. No displaced acute fractures are evident. There is no dislocation. Moderate to severe degenerative changes are noted involving the midfoot joints. Sclerosis at the base of the 3rd metatarsal could represent a stress fracture in the correct clinical setting. There is a prominent plantar calcaneal spur. Pes planus appears present. Soft tissues: Moderate soft tissue edema is identified about the dorsal aspect of the foot, which is more pronounced on the lateral margin of the foot. Skin ulceration/wound appears to be present overlying the 5th metatarsal phalangeal joint. No radiopaque foreign bodies are evident. IMPRESSION: 1. Erosive changes involving the head of the 5th metatarsal and the base of the proximal phalanx of the 5th toe is suspicious for osteomyelitis, particularly given the soft tissue defect at this location. MRI with intravenous contrast would be helpful for better evaluation. 2. Prominent degenerative changes of the midfoot. 3. Apparent old injury of the 5th metatarsal. 4. Mild sclerosis involving the base of the 3rd metatarsal may be degenerative. If there is clinical concern for a stress fracture, this could be addressed at the time of the MRI. Dictated by: Rene Morales M.D. on 03/15/2018 at 11:41 Approved by: Rene Morales M.D. on 03/15/2018 at 11:46
--- NOTE | 2018-03-15 13:33 | ED_ITS ---
HPI - Skin/Abscess/Foreign Bdy <DEDE Randle - Last Filed: 03/15/18 22:09> General Chief complaint: Skin/Abscess/Foreign Body Stated complaint: INFECTION ON LEFT FOOT/WOUNDS ON RIGHT LEG Time Seen by Provider: 03/15/18 11:04 Source: patient Mode of arrival: ambulatory Limitations: no limitations History of Present Illness HPI narrative: 47-year-old male with history of hypertension and type 2 diabetes that is a nonsmoker here for complaint of ulcerations to his lower extremities and to his left foot. He was seen in the emergency room yesterday and was placed on antibiotics doxycycline. He states he taking 1 dose of the antibiotic. he was followed up at wound Care today were debridement was done after debridement they sent him back to the emergency room due to concern of the ulcerations especially to the left lateral foot and the depth that it obtained. He has not had a fever. wound has been serosanguineous/purulent drainage. no trauma to the area. He does have a history of having ulcerations to his lower extremities and has had multiple visits to a wound care over the last year. He denies any trauma to the lower extremities. Related Data Home Medications Medication Instructions Recorded Confirmed amlodipine 10 mg PO DAILY 03/14/18 03/15/18 carvedilol 25 mg PO 1300 03/14/18 03/15/18 lisinopril 40 mg PO DAILY 03/14/18 03/15/18 metformin 1,000 mg PO BID 03/14/18 03/15/18 chlorthalidone 25 mg PO DAILY 03/15/18 03/15/18 glipizide 10 mg PO BID 03/15/18 03/15/18 Previous Rx's Medication Instructions Recorded doxycycline hyclate 100 mg PO BID 7 Days #14 tab 03/14/18 Allergies Allergy/AdvReac Type Severity Reaction Status Date / Time No Known Drug Allergies Allergy Verified 03/14/18 09:41 Review of Systems <DEDE Randle - Last Filed: 03/15/18 22:09> Constitutional Denies chills, Denies fever(s), Denies lethargy and Denies weakness Eyes Denies change in vision, Denies eye discharge, Denies irritation and Denies loss of vision ENT Ears, Nose, Mouth, and Throat: Denies change in voice, Denies neck pain and Denies sore throat Cardiovascular Denies chest pain, Denies irregular heart rhythm, Denies lightheadedness, Denies palpitations, Denies dyspnea, Denies dyspnea on exertion and Denies orthopnea Respiratory Denies cough, Denies dyspnea, Denies dyspnea on exertion and Denies wheezing Gastrointestinal Gastrointestinal: Denies abdominal pain, Denies change in bowel habits, Denies diarrhea, Denies nausea and Denies vomiting Genitourinary Denies hematuria, Denies flank pain, Denies urinary incontinence and Denies urinary urgency Musculoskeletal Denies neck pain Comments: Ulcerations to bilateral lower extremities Integumentary/Breasts Denies pruritus, Denies erythema, Denies rash and Denies wounds Neurologic Denies confusion, Denies loss of vision and Denies weakness Psychiatric Denies anxiety, Denies confusion, Denies depression, Denies homicidal ideation and Denies suicidal ideation Endocrine Denies palpitations Hematologic/Lymphatic Denies easy bruising Allergic/Immunologic Denies wheezing PFSH <DEDE Randle - Last Filed: 03/15/18 22:09> Medical History Congestive heart failure (Acute) Diabetes (Acute) Diabetes mellitus (Acute) Surgical History No pertinent past surgical history (Acute) Social History Smoking Status: Never smoker Social History household members: spouse and children Smoking Status: Former smoker alcohol intake: never Exam <DEDE Randle - Last Filed: 03/15/18 22:09> Initial Vital Signs Initial Vital Signs: Vital Signs Temperature 98.5 F 03/15/18 10:10 Pulse Rate 77 03/15/18 10:10 Respiratory Rate 20 03/15/18 10:10 Blood Pressure 170/101 H 03/15/18 10:10 Pulse Oximetry 98 03/15/18 10:10 Const General: cooperative and well developed Nutritional Appearance: well nourished Orientation: alert, awake, oriented x3 and not confused HENMT Mouth: oral mucosae normal and moist mucous membranes Eyes Conjunctivae: conjunctivae normal Sclera: sclerae normal Pupils: PERRL EOM: EOM intact bilaterally Neck Neck: normal visual inspection, trachea midline, No lymphadenopathy, No midline deformity and No JVD Lymphatic: No lymphedema Resp Effort & Inspection: normal respiratory effort, able to speak in complete sentences, no respiratory distress and no use of accessory muscles Auscultation: clear to auscultation bilaterally, no rales, no rhonchi and no wheezes Cardio Rate: regular rate Rhythm: regular rhythm Heart Sounds: no click, no gallops, no murmurs and no rubs Pulses: normal peripheral pulses Neuro General: alert, oriented x3, gait normal and no focal motor deficits Speech: speech normal Extrem Other: stage II pressure ulcers to anterior right garcia and also to right lateral foot. Stage 3-4 pressure ulcers to the lateral left foot distal sens ation is intact. Distal range of motion is intact. Distal pulses are intact. <Bhavna Gregory DO - Last Filed: 03/16/18 08:21> Initial Vital Signs Initial Vital Signs: Vital Signs Temperature 98.5 F 03/15/18 10:10 Pulse Rate 77 03/15/18 10:10 Respiratory Rate 20 03/15/18 10:10 Blood Pressure 170/101 H 03/15/18 10:10 Pulse Oximetry 98 03/15/18 10:10 Course <DEDE Randle - Last Filed: 03/15/18 22:09> Orders Ordered: ED Orders 03/16/18 15:30 Vancomycin Trough Urgent Acetaminophen (Tylenol) 650 mg PO Q6HR PRN PRN Reason: As Needed for Fever/Mild Pain Last Admin: 03/15/18 20:53 Dose: 650 mg Amlodipine Besylate (Norvasc) 10 mg PO DAILY [facility] Carvedilol (Coreg) 25 mg PO 1300 [facility] Chlorthalidone (Hygroton) 25 mg PO DAILY [facility] Glipizide (Glucotrol) 10 mg PO BID [facility] Last Admin: 03/15/18 20:47 Dose: 10 mg Ceftriaxone Sodium/Dextrose (Rocephin) 2 gm in 50 mls @ 100 mls/hr IV Q24H [facility] Sodium Chloride (Normal Saline 0.9%) 250 mls @ 21 mls/hr IV Q24H PRN PRN Reason: Flush Vancomycin HCl 1,500 mg/ (Sodium Chloride) 500 mls @ 333.333 mls/hr IV Q8H [facility] Insulin Aspart (Novolog Flexpen) 0 unit SUBCUT Q6H [facility]; Protocol Last Admin: 03/16/18 04:08 Dose: Not Given Admin: 03/15/18 20:48 Dose: 5 unit Admin: 03/15/18 16:58 Dose: 1 unit Lisinopril (Zestril) 40 mg PO DAILY [facility] Magnesium Hydroxide (Milk Of Magnesia) 30 ml PO DAILY PRN PRN Reason: Constipation Metformin HCl (Glucophage) 1,000 mg PO BID [facility] Last Admin: 03/15/18 20:47 Dose: 1,000 mg Sodium Chloride (Normal Saline 0.9% Flush) 10 ml IV PRN PRN PRN Reason: Flush Last Admin: 03/16/18 00:10 Dose: 10 ml Sodium Chloride (Normal Saline 0.9% Flush) 10 ml IV BID [facility] Vancomycin HCl (Vancomycin Trough) 1 request MISC NOW ONE Stop: 03/16/18 15:31 Discontinued Medications Carvedilol (Coreg) 25 mg PO NOW ONE Stop: 03/15/18 16:03 Last Admin: 03/15/18 16:57 Dose: 25 mg Sodium Chloride (Normal Saline 0.9%) 1,000 mls @ 1,000 mls/hr IV BOLUS ONE Stop: 03/15/18 11:57 Last Infusion: 03/15/18 11:58 Dose: 0 mls/hr Admin: 03/15/18 11:05 Dose: 1,000 mls/hr Vancomycin HCl 2,000 mg/ (Sodium Chloride) 500 mls @ 250 mls/hr IV NOW ONE Stop: 03/15/18 13:23 Last Infusion: 03/15/18 21:20 Dose: 0 mls/hr Admin: 03/15/18 15:46 Dose: 250 mls/hr Ceftriaxone Sodium/Dextrose (Rocephin) 2 gm in 50 mls @ 100 mls/hr IV NOW ONE Stop: 03/15/18 13:51 Last Infusion: 03/15/18 14:32 Dose: 0 mls/hr Admin: 03/15/18 13:47 Dose: 100 mls/hr Vancomycin HCl 1,500 mg/ (Sodium Chloride) 500 mls @ 333.333 mls/hr IV Q8HR [facility] Last Infusion: 03/16/18 02:04 Dose: 0 mls/hr Admin: 03/16/18 00:10 Dose: 333.333 mls/hr Influenza Virus Vaccine (Flu Vaccine) 0.5 ml IM .ONCE ONE Stop: 03/15/18 15:00 Last Admin: 03/15/18 18:03 Dose: Not Given Vancomycin HCl (Vancomycin Per Pharmacy) 1 request MISC NOW ONE Stop: 03/15/18 15:49 Last Admin: 03/15/18 17:44 Dose: Not Given Vital Signs - 8 hr 03/16/18 00:45 03/16/18 04:00 03/16/18 08:09 Temperature 98.4 F 98.4 F Pulse Rate 66 73 Respiratory Rate 16 16 Blood Pressure 116/75 151/98 H Pulse Oximetry 98 95 97 <Bhavna Gregory, - Last Filed: 03/16/18 08:21> Orders Ordered: ED Orders 03/16/18 15:30 Vancomycin Trough Urgent Acetaminophen (Tylenol) 650 mg PO Q6HR PRN PRN Reason: As Needed for Fever/Mild Pain Last Admin: 03/15/18 20:53 Dose: 650 mg Amlodipine Besylate (Norvasc) 10 mg PO DAILY [facility] Carvedilol (Coreg) 25 mg PO 1300 [facility] Chlorthalidone (Hygroton) 25 mg PO DAILY [facility] Glipizide (Glucotrol) 10 mg PO BID [facility] Last Admin: 03/15/18 20:47 Dose: 10 mg Ceftriaxone Sodium/Dextrose (Rocephin) 2 gm in 50 mls @ 100 mls/hr IV Q24H [facility] Sodium Chloride (Normal Saline 0.9%) 250 mls @ 21 mls/hr IV Q24H PRN PRN Reason: Flush Vancomycin HCl 1,500 mg/ (Sodium Chloride) 500 mls @ 333.333 mls/hr IV Q8H [facility] Insulin Aspart (Novolog Flexpen) 0 unit SUBCUT Q6H [facility]; Protocol Last Admin: 03/16/18 04:08 Dose: Not Given Admin: 03/15/18 20:48 Dose: 5 unit Admin: 03/15/18 16:58 Dose: 1 unit Lisinopril (Zestril) 40 mg PO DAILY [facility] Magnesium Hydroxide (Milk Of Magnesia) 30 ml PO DAILY PRN PRN Reason: Constipation Metformin HCl (Glucophage) 1,000 mg PO BID [facility] Last Admin: 03/15/18 20:47 Dose: 1,000 mg Sodium Chloride (Normal Saline 0.9% Flush) 10 ml IV PRN PRN PRN Reason: Flush Last Admin: 03/16/18 00:10 Dose: 10 ml Sodium Chloride (Normal Saline 0.9% Flush) 10 ml IV BID [facility] Vancomycin HCl (Vancomycin Trough) 1 request MISC NOW ONE Stop: 03/16/18 15:31 Discontinued Medications Carvedilol (Coreg) 25 mg PO NOW ONE Stop: 03/15/18 16:03 Last Admin: 03/15/18 16:57 Dose: 25 mg Sodium Chloride (Normal Saline 0.9%) 1,000 mls @ 1,000 mls/hr IV BOLUS ONE Stop: 03/15/18 11:57 Last Infusion: 03/15/18 11:58 Dose: 0 mls/hr Admin: 03/15/18 11:05 Dose: 1,000 mls/hr Vancomycin HCl 2,000 mg/ (Sodium Chloride) 500 mls @ 250 mls/hr IV NOW ONE Stop: 03/15/18 13:23 Last Infusion: 03/15/18 21:20 Dose: 0 mls/hr Admin: 03/15/18 15:46 Dose: 250 mls/hr Ceftriaxone Sodium/Dextrose (Rocephin) 2 gm in 50 mls @ 100 mls/hr IV NOW ONE Stop: 03/15/18 13:51 Last Infusion: 03/15/18 14:32 Dose: 0 mls/hr Admin: 03/15/18 13:47 Dose: 100 mls/hr Vancomycin HCl 1,500 mg/ (Sodium Chloride) 500 mls @ 333.333 mls/hr IV Q8HR [facility] Last Infusion: 03/16/18 02:04 Dose: 0 mls/hr Admin: 03/16/18 00:10 Dose: 333.333 mls/hr Influenza Virus Vaccine (Flu Vaccine) 0.5 ml IM .ONCE ONE Stop: 03/15/18 15:00 Last Admin: 03/15/18 18:03 Dose: Not Given Vancomycin HCl (Vancomycin Per Pharmacy) 1 request MISC NOW ONE Stop: 03/15/18 15:49 Last Admin: 03/15/18 17:44 Dose: Not Given Vital Signs - 8 hr 03/16/18 00:45 03/16/18 04:00 03/16/18 08:09 Temperature 98.4 F 98.4 F Pulse Rate 66 73 Respiratory Rate 16 16 Blood Pressure 116/75 151/98 H Pulse Oximetry 98 95 97 MDM - Skin/Abscess/Foreign Bdy <DEDE Randle - Last Filed: 03/15/18 22:09> Lab Data Result diagrams: 03/15/18 10:25 03/15/18 10:25 Lab Results 03/15/18 03/15/18 03/15/18 Range/Units 10:25 10:25 10:25 WBC 7.7 (4.5-11.0) X10^3/uL RBC 5.28 (4.5-5.9) X10^6/uL Hgb 15.2 (13.5-17.5) g/dL Hct 43.9 (41-53) % MCV 83.0 (80-100) fL MCH 28.7 (26-34) PG MCHC 34.5 (30-36) % RDW 12.9 (11.6-14.8) % Plt Count 336 (150-400) X10^3/uL Neut % (Auto) 56.7 (50-75) % Lymph % (Auto) 30.6 (25-40) % [place] % (Auto) 9.3 (3-14) % Eos % (Auto) 2.8 (2-4) % Baso % (Auto) 0.6 (0-2) % Neut # (Auto) 4300 (1315-1479) /uL Lymph # (Auto) 2300 (5849-0481) /uL [place] # (Auto) 700 (0-900) /uL Eos # (Auto) 200 (0-450) /uL Baso # (Auto) 0 (0-100) /uL ESR (0-15) MM/HR PT 12.3 (10.1-12.7) SECONDS INR 1.1 (0.9-1.3) APTT 31 (26.4-36.2) SECONDS Sodium (137-145) mmol/L Potassium (3.4-5.1) mmol/L Chloride (98-107) mmol/L Carbon Dioxide (22-32) mmol/L BUN (9-20) mg/dL Creatinine (0.66-1.25) mg/dL Estimated GFR (>60) mL/min BUN/Creatinine Ratio (6-22) Glucose (70-100) mg/dL Hemoglobin A1c Lactate (0.7-2.1) mmol/L Calcium (8.4-10.2) mg/dL Total Bilirubin (0.2-1.3) mg/dL AST (17-59) IU/L ALT (21-72) IU/L Alkaline Phosphatase (38-126) U/L C-Reactive Protein (<1.0) mg/dL Total Protein (6.3-8.2) g/dL Albumin (3.5-5.0) g/dL Globulin (1.7-4.1) g/dL Albumin/Globulin Ratio (1.0-2.8) Lipase (23-300) U/L Procalcitonin < 0.05 (<0.5) ng/mL Urine Color Urine Appearance Urine pH (4.5-8.0) Ur Specific [place] (1.000-1.035) Urine Protein (Negative) Urine Glucose (UA) (Negative) g/dL Urine Ketones (NEGATIVE) Urine Occult Blood (Negative) Urine Nitrate (Negative) Urine Bilirubin (NEGATIVE) Urine Urobilinogen (0.2) E.U./dL Ur Leukocyte Esterase (NEGATIVE) Urine RBC (0-5/HPF) Urine WBC (0-5/HPF) Urine Bacteria (None) Ur Culture Indicated? Micro UA Comment 03/15/18 03/15/18 03/15/18 Range/Units 10:25 10:25 10:25 WBC (4.5-11.0) X10^3/uL RBC (4.5-5.9) X10^6/uL Hgb (13.5-17.5) g/dL Hct (41-53) % MCV (80-100) fL MCH (26-34) PG MCHC (30-36) % RDW (11.6-14.8) % Plt Count (150-400) X10^3/uL Neut % (Auto) (50-75) % Lymph % (Auto) (25-40) % [place] % (Auto) (3-14) % Eos % (Auto) (2-4) % Baso % (Auto) (0-2) % Neut # (Auto) (1494-2450) /uL Lymph # (Auto) (5407-1338) /uL [place] # (Auto) (0-900) /uL Eos # (Auto) (0-450) /uL Baso # (Auto) (0-100) /uL ESR 19 H (0-15) MM/HR PT (10.1-12.7) SECONDS INR (0.9-1.3) APTT (26.4-36.2) SECONDS Sodium 137 (137-145) mmol/L Potassium 3.8 (3.4-5.1) mmol/L Chloride 97 L (98-107) mmol/L Carbon Dioxide 27 (22-32) mmol/L BUN 19 (9-20) mg/dL Creatinine 0.80 (0.66-1.25) mg/dL Estimated GFR > 60.0 (>60) mL/min BUN/Creatinine Ratio 23.8 H (6-22) Glucose 266 H (70-100) mg/dL Hemoglobin A1c Lactate 1.0 (0.7-2.1) mmol/L Calcium 9.1 (8.4-10.2) mg/dL Total Bilirubin 0.7 (0.2-1.3) mg/dL AST 43 (17-59) IU/L ALT 59 (21-72) IU/L Alkaline Phosphatase 70 (38-126) U/L C-Reactive Protein (<1.0) mg/dL Total Protein 8.2 (6.3-8.2) g/dL Albumin 4.2 (3.5-5.0) g/dL Globulin 4.0 (1.7-4.1) g/dL Albumin/Globulin Ratio 1.1 (1.0-2.8) Lipase 279 (23-300) U/L Procalcitonin (<0.5) ng/mL Urine Color Urine Appearance Urine pH (4.5-8.0) Ur Specific [place] (1.000-1.035) Urine Protein (Negative) Urine Glucose (UA) (Negative) g/dL Urine Ketones (NEGATIVE) Urine Occult Blood (Negative) Urine Nitrate (Negative) Urine Bilirubin (NEGATIVE) Urine Urobilinogen (0.2) E.U./dL Ur Leukocyte Esterase (NEGATIVE) Urine RBC (0-5/HPF) Urine WBC (0-5/HPF) Urine Bacteria (None) Ur Culture Indicated? Micro UA Comment 02/08/19 02/08/19 02/08/19 Range/Units 10:25 10:25 10:25 WBC (4.5-11.0) X10^3/uL RBC (4.5-5.9) X10^6/uL Hgb (13.5-17.5) g/dL Hct (41-53) % MCV (80-100) fL MCH (26-34) PG MCHC (30-36) % RDW (11.6-14.8) % Plt Count (150-400) X10^3/uL Neut % (Auto) (50-75) % Lymph % (Auto) (25-40) % [place] % (Auto) (3-14) % Eos % (Auto) (2-4) % Baso % (Auto) (0-2) % Neut # (Auto) (9052-4562) /uL Lymph # (Auto) (0609-9351) /uL [place] # (Auto) (0-900) /uL Eos # (Auto) (0-450) /uL Baso # (Auto) (0-100) /uL ESR (0-15) MM/HR PT (10.1-12.7) SECONDS INR (0.9-1.3) APTT (26.4-36.2) SECONDS Sodium (137-145) mmol/L Potassium (3.4-5.1) mmol/L Chloride (98-107) mmol/L Carbon Dioxide (22-32) mmol/L BUN (9-20) mg/dL Creatinine (0.66-1.25) mg/dL Estimated GFR (>60) mL/min BUN/Creatinine Ratio (6-22) Glucose (70-100) mg/dL Hemoglobin A1c Cancelled 10.9 H Lactate (0.7-2.1) mmol/L Calcium (8.4-10.2) mg/dL Total Bilirubin (0.2-1.3) mg/dL AST (17-59) IU/L ALT (21-72) IU/L Alkaline Phosphatase (38-126) U/L C-Reactive Protein 3.1 H (<1.0) mg/dL Total Protein (6.3-8.2) g/dL Albumin (3.5-5.0) g/dL Globulin (1.7-4.1) g/dL Albumin/Globulin Ratio (1.0-2.8) Lipase (23-300) U/L Procalcitonin (<0.5) ng/mL Urine Color Urine Appearance Urine pH (4.5-8.0) Ur Specific [place] (1.000-1.035) Urine Protein (Negative) Urine Glucose (UA) (Negative) g/dL Urine Ketones (NEGATIVE) Urine Occult Blood (Negative) Urine Nitrate (Negative) Urine Bilirubin (NEGATIVE) Urine Urobilinogen (0.2) E.U./dL Ur Leukocyte Esterase (NEGATIVE) Urine RBC (0-5/HPF) Urine WBC (0-5/HPF) Urine Bacteria (None) Ur Culture Indicated? Micro UA Comment 03/15/18 Range/Units 17:00 WBC (4.5-11.0) X10^3/uL RBC (4.5-5.9) X10^6/uL Hgb (13.5-17.5) g/dL Hct (41-53) % MCV (80-100) fL MCH (26-34) PG MCHC (30-36) % RDW (11.6-14.8) % Plt Count (150-400) X10^3/uL Neut % (Auto) (50-75) % Lymph % (Auto) (25-40) % [place] % (Auto) (3-14) % Eos % (Auto) (2-4) % Baso % (Auto) (0-2) % Neut # (Auto) (6726-3459) /uL Lymph # (Auto) (1020-1405) /uL [place] # (Auto) (0-900) /uL Eos # (Auto) (0-450) /uL Baso # (Auto) (0-100) /uL ESR (0-15) MM/HR PT (10.1-12.7) SECONDS INR (0.9-1.3) APTT (26.4-36.2) SECONDS Sodium (137-145) mmol/L Potassium (3.4-5.1) mmol/L Chloride (98-107) mmol/L Carbon Dioxide (22-32) mmol/L BUN (9-20) mg/dL Creatinine (0.66-1.25) mg/dL Estimated GFR (>60) mL/min BUN/Creatinine Ratio (6-22) Glucose (70-100) mg/dL Hemoglobin A1c Lactate (0.7-2.1) mmol/L Calcium (8.4-10.2) mg/dL Total Bilirubin (0.2-1.3) mg/dL AST (17-59) IU/L ALT (21-72) IU/L Alkaline Phosphatase (38-126) U/L C-Reactive Protein (<1.0) mg/dL Total Protein (6.3-8.2) g/dL Albumin (3.5-5.0) g/dL Globulin (1.7-4.1) g/dL Albumin/Globulin Ratio (1.0-2.8) Lipase (23-300) U/L Procalcitonin (<0.5) ng/mL Urine Color Yellow Urine Appearance Clear Urine pH 7.0 (4.5-8.0) Ur Specific [place] 1.015 (1.000-1.035) Urine Protein Negative (Negative) Urine Glucose (UA) Negative (Negative) g/dL Urine Ketones Negative (NEGATIVE) Urine Occult Blood Negative (Negative) Urine Nitrate Negative (Negative) Urine Bilirubin Negative (NEGATIVE) Urine Urobilinogen 0.2 (0.2) E.U./dL Ur Leukocyte Esterase Negative (NEGATIVE) Urine RBC None seen (0-5/HPF) Urine WBC None seen (0-5/HPF) Urine Bacteria None seen (None) Ur Culture Indicated? Cult not indicated Micro UA Comment Microscopic normal Point of Care Testing Glucose POC 145 MDM Narrative Medical decision making narrative: CBC was obtained shows normal white count. Procalcitonin and lactate were unremarkable. Chem panel was unremarkable with the exception of elevated glucose at 279. x-ray of the left foot was obtained and shows findings concerning for bony involvement of infection /osteomyelitis. due to worsening condition and indication of bony involvement. Patient is admitted for IV antibiotics he was placed on Rocephin and vancomycin. blood cultures are pending. Procalcitonin and lactate were normal. Wound cultures were obtained at the wound clinic today and are pending. Discussed case with Dr. Kennedy who accepted patient. <Bhavna Gregory DO - Last Filed: 03/16/18 08:21> Lab Data Lab Results 03/15/18 03/15/18 03/15/18 Range/Units 10:25 10:25 10:25 WBC 7.7 (4.5-11.0) X10^3/uL RBC 5.28 (4.5-5.9) X10^6/uL Hgb 15.2 (13.5-17.5) g/dL Hct 43.9 (41-53) % MCV 83.0 (80-100) fL MCH 28.7 (26-34) PG MCHC 34.5 (30-36) % RDW 12.9 (11.6-14.8) % Plt Count 336 (150-400) X10^3/uL Neut % (Auto) 56.7 (50-75) % Lymph % (Auto) 30.6 (25-40) % [place] % (Auto) 9.3 (3-14) % Eos % (Auto) 2.8 (2-4) % Baso % (Auto) 0.6 (0-2) % Neut # (Auto) 4300 (1905-3231) /uL Lymph # (Auto) 2300 (7103-8122) /uL [place] # (Auto) 700 (0-900) /uL Eos # (Auto) 200 (0-450) /uL Baso # (Auto) 0 (0-100) /uL ESR (0-15) MM/HR PT 12.3 (10.1-12.7) SECONDS INR 1.1 (0.9-1.3) APTT 31 (26.4-36.2) SECONDS Sodium (137-145) mmol/L Potassium (3.4-5.1) mmol/L Chloride (98-107) mmol/L Carbon Dioxide (22-32) mmol/L BUN (9-20) mg/dL Creatinine (0.66-1.25) mg/dL Estimated GFR (>60) mL/min BUN/Creatinine Ratio (6-22) Glucose (70-100) mg/dL Hemoglobin A1c Lactate (0.7-2.1) mmol/L Calcium (8.4-10.2) mg/dL Total Bilirubin (0.2-1.3) mg/dL AST (17-59) IU/L ALT (21-72) IU/L Alkaline Phosphatase (38-126) U/L C-Reactive Protein (<1.0) mg/dL Total Protein (6.3-8.2) g/dL Albumin (3.5-5.0) g/dL Globulin (1.7-4.1) g/dL Albumin/Globulin Ratio (1.0-2.8) Lipase (23-300) U/L Procalcitonin < 0.05 (<0.5) ng/mL Urine Color Urine Appearance Urine pH (4.5-8.0) Ur Specific [place] (1.000-1.035) Urine Protein (Negative) Urine Glucose (UA) (Negative) g/dL Urine Ketones (NEGATIVE) Urine Occult Blood (Negative) Urine Nitrate (Negative) Urine Bilirubin (NEGATIVE) Urine Urobilinogen (0.2) E.U./dL Ur Leukocyte Esterase (NEGATIVE) Urine RBC (0-5/HPF) Urine WBC (0-5/HPF) Urine Bacteria (None) Ur Culture Indicated? Micro UA Comment 03/15/18 03/15/18 03/15/18 Range/Units 10:25 10:25 10:25 WBC (4.5-11.0) X10^3/uL RBC (4.5-5.9) X10^6/uL Hgb (13.5-17.5) g/dL Hct (41-53) % MCV (80-100) fL MCH (26-34) PG MCHC (30-36) % RDW (11.6-14.8) % Plt Count (150-400) X10^3/uL Neut % (Auto) (50-75) % Lymph % (Auto) (25-40) % [place] % (Auto) (3-14) % Eos % (Auto) (2-4) % Baso % (Auto) (0-2) % Neut # (Auto) (6074-3576) /uL Lymph # (Auto) (5173-0880) /uL [place] # (Auto) (0-900) /uL Eos # (Auto) (0-450) /uL Baso # (Auto) (0-100) /uL ESR 19 H (0-15) MM/HR PT (10.1-12.7) SECONDS INR (0.9-1.3) APTT (26.4-36.2) SECONDS Sodium 137 (137-145) mmol/L Potassium 3.8 (3.4-5.1) mmol/L Chloride 97 L (98-107) mmol/L Carbon Dioxide 27 (22-32) mmol/L BUN 19 (9-20) mg/dL Creatinine 0.80 (0.66-1.25) mg/dL Estimated GFR > 60.0 (>60) mL/min BUN/Creatinine Ratio 23.8 H (6-22) Glucose 266 H (70-100) mg/dL Hemoglobin A1c Lactate 1.0 (0.7-2.1) mmol/L Calcium 9.1 (8.4-10.2) mg/dL Total Bilirubin 0.7 (0.2-1.3) mg/dL AST 43 (17-59) IU/L ALT 59 (21-72) IU/L Alkaline Phosphatase 70 (38-126) U/L C-Reactive Protein (<1.0) mg/dL Total Protein 8.2 (6.3-8.2) g/dL Albumin 4.2 (3.5-5.0) g/dL Globulin 4.0 (1.7-4.1) g/dL Albumin/Globulin Ratio 1.1 (1.0-2.8) Lipase 279 (23-300) U/L Procalcitonin (<0.5) ng/mL Urine Color Urine Appearance Urine pH (4.5-8.0) Ur Specific [place] (1.000-1.035) Urine Protein (Negative) Urine Glucose (UA) (Negative) g/dL Urine Ketones (NEGATIVE) Urine Occult Blood (Negative) Urine Nitrate (Negative) Urine Bilirubin (NEGATIVE) Urine Urobilinogen (0.2) E.U./dL Ur Leukocyte Esterase (NEGATIVE) Urine RBC (0-5/HPF) Urine WBC (0-5/HPF) Urine Bacteria (None) Ur Culture Indicated? Micro UA Comment 03/15/18 03/15/18 03/15/18 Range/Units 10:25 10:25 10:25 WBC (4.5-11.0) X10^3/uL RBC (4.5-5.9) X10^6/uL Hgb (13.5-17.5) g/dL Hct (41-53) % MCV (80-100) fL MCH (26-34) PG MCHC (30-36) % RDW (11.6-14.8) % Plt Count (150-400) X10^3/uL Neut % (Auto) (50-75) % Lymph % (Auto) (25-40) % [place] % (Auto) (3-14) % Eos % (Auto) (2-4) % Baso % (Auto) (0-2) % Neut # (Auto) (3020-6476) /uL Lymph # (Auto) (4536-2268) /uL [place] # (Auto) (0-900) /uL Eos # (Auto) (0-450) /uL Baso # (Auto) (0-100) /uL ESR (0-15) MM/HR PT (10.1-12.7) SECONDS INR (0.9-1.3) APTT (26.4-36.2) SECONDS Sodium (137-145) mmol/L Potassium (3.4-5.1) mmol/L Chloride (98-107) mmol/L Carbon Dioxide (22-32) mmol/L BUN (9-20) mg/dL Creatinine (0.66-1.25) mg/dL Estimated GFR (>60) mL/min BUN/Creatinine Ratio (6-22) Glucose (70-100) mg/dL Hemoglobin A1c Cancelled 10.9 H Lactate (0.7-2.1) mmol/L Calcium (8.4-10.2) mg/dL Total Bilirubin (0.2-1.3) mg/dL AST (17-59) IU/L ALT (21-72) IU/L Alkaline Phosphatase (38-126) U/L C-Reactive Protein 3.1 H (<1.0) mg/dL Total Protein (6.3-8.2) g/dL Albumin (3.5-5.0) g/dL Globulin (1.7-4.1) g/dL Albumin/Globulin Ratio (1.0-2.8) Lipase (23-300) U/L Procalcitonin (<0.5) ng/mL Urine Color Urine Appearance Urine pH (4.5-8.0) Ur Specific [place] (1.000-1.035) Urine Protein (Negative) Urine Glucose (UA) (Negative) g/dL Urine Ketones (NEGATIVE) Urine Occult Blood (Negative) Urine Nitrate (Negative) Urine Bilirubin (NEGATIVE) Urine Urobilinogen (0.2) E.U./dL Ur Leukocyte Esterase (NEGATIVE) Urine RBC (0-5/HPF) Urine WBC (0-5/HPF) Urine Bacteria (None) Ur Culture Indicated? Micro UA Comment 03/15/18 Range/Units 17:00 WBC (4.5-11.0) X10^3/uL RBC (4.5-5.9) X10^6/uL Hgb (13.5-17.5) g/dL Hct (41-53) % MCV (80-100) fL MCH (26-34) PG MCHC (30-36) % RDW (11.6-14.8) % Plt Count (150-400) X10^3/uL Neut % (Auto) (50-75) % Lymph % (Auto) (25-40) % [place] % (Auto) (3-14) % Eos % (Auto) (2-4) % Baso % (Auto) (0-2) % Neut # (Auto) (7859-1775) /uL Lymph # (Auto) (1333-3833) /uL [place] # (Auto) (0-900) /uL Eos # (Auto) (0-450) /uL Baso # (Auto) (0-100) /uL ESR (0-15) MM/HR PT (10.1-12.7) SECONDS INR (0.9-1.3) APTT (26.4-36.2) SECONDS Sodium (137-145) mmol/L Potassium (3.4-5.1) mmol/L Chloride (98-107) mmol/L Carbon Dioxide (22-32) mmol/L BUN (9-20) mg/dL Creatinine (0.66-1.25) mg/dL Estimated GFR (>60) mL/min BUN/Creatinine Ratio (6-22) Glucose (70-100) mg/dL Hemoglobin A1c Lactate (0.7-2.1) mmol/L Calcium (8.4-10.2) mg/dL Total Bilirubin (0.2-1.3) mg/dL AST (17-59) IU/L ALT (21-72) IU/L Alkaline Phosphatase (38-126) U/L C-Reactive Protein (<1.0) mg/dL Total Protein (6.3-8.2) g/dL Albumin (3.5-5.0) g/dL Globulin (1.7-4.1) g/dL Albumin/Globulin Ratio (1.0-2.8) Lipase (23-300) U/L Procalcitonin (<0.5) ng/mL Urine Color Yellow Urine Appearance Clear Urine pH 7.0 (4.5-8.0) Ur Specific [place] 1.015 (1.000-1.035) Urine Protein Negative (Negative) Urine Glucose (UA) Negative (Negative) g/dL Urine Ketones Negative (NEGATIVE) Urine Occult Blood Negative (Negative) Urine Nitrate Negative (Negative) Urine Bilirubin Negative (NEGATIVE) Urine Urobilinogen 0.2 (0.2) E.U./dL Ur Leukocyte Esterase Negative (NEGATIVE) Urine RBC None seen (0-5/HPF) Urine WBC None seen (0-5/HPF) Urine Bacteria None seen (None) Ur Culture Indicated? 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 Ulcer of right leg Qualifiers: Non-pressure ulcer stage: unspecified non-pressure ulcer stage Qualified Code(s): L97.919 - Non-pressure chronic ulcer of unspecified part of right lower leg with unspecified severity Foot ulcer, left Qualifiers: Non-pressure ulcer stage: with fat layer exposed Qualified Code(s): L97.522 - Non-pressure chronic ulcer of other part of left foot with fat layer exposed Discharge Date/Time: 03/15/18 14:32 Interventions: ED Discharge Assessment Last Done: 03/15/18 14:01 Admit Date/Time: 03/15/18 13:44 Admit Provider: Eugene Kennedy <Bhavna Gregory DO - Last Filed: 03/16/18 08:21> Cosign ED Attending Cosignature Attestation: I was immediately available in the department for consultation, case was discussed. This documentation has been reviewed and I agree with assessment and plan. Supervised by Bhavna Gregory DO
[2018-03-15] MEDS: CEFTRIAXONE 2 GM/50 ML FROZ.PIGGY IV (13:47)
[2018-03-15 14:02] LABS: C-Reactive Protein Quant 3.1 mg/dL (<1.0)
[2018-03-15 14:16] LABS: Erythrocyte Sedimentation Rate 19 MM/HR (0-15)
[2018-03-15] MEDS: VANCOMYCIN 2,000 MG in SODIUM CHLORIDE 0.9% 500 ML 250 ML IV (15:46)
--- NOTE | 2018-03-15 15:58 | P.CONS_ITS ---
History of Present Illness Date Patient Seen: 03/16/18 Time Patient Seen: 08:30 Chief complaint: INFECTION ON LEFT FOOT/WOUNDS ON RIGHT LEG Reason for consult: left foot wound/infection/diabetes Requesting provider: Eugene Kennedy Narrative: A 47-year-old male that presents with a left lateral foot ulcerations. The patient has a history of uncontrolled diabetes. He takes metformin and glipizide. He has not had a recent hemoglobin A1c past level a few years ago was approximately 10. Patient are some reports a history of lateral foot ulcerations that in the past were treated with wound care with Dr. figueredo. Reports the area seemed to heal up very well and he was fine for almost a year. Three months ago he had a blister pop. He treated this with local wound care at home and it seemed to heal up. Last week he acutely developed ulc erations at the 5th metatarsal head laterally and plantarly and dorsally for a total of 3 separate ulcerations in a close proximity. He took the remains of a few pills of antibiotics he had at home. Was seen in the ER and referred to wound care with Dr. Huerta. He was evaluated there and sent to the emergency room for further treatment. Cultures were taken at wound care and the patient was placed on doxycycline. Patient was evaluated in the emergency room had moderately elevated inflammatory markers but a normal white blood cell count and was a septic in appearance. Patient was admitted for left foot ulceration and osteomyelitis. Was placed on empiric antibiotics. The patient denies any fevers chills nausea or vomiting. He endorses blistering swelling and erythema and drainage and pain. He states he has spotty neuropathy but has been able to feel the 5.07 monofilament in the past. [facility] Medical History Congestive heart failure (Acute) Diabetes (Acute) Diabetes mellitus (Acute) Surgical History No pertinent past surgical history (Acute) Social History household members: spouse and children Smoking Status: Former smoker alcohol intake: never Social History household members: spouse and children Smoking Status: Former smoker alcohol intake: never Meds Home Medications Medication Instructions Recorded Confirmed Type amlodipine 10 mg PO DAILY 03/14/18 03/15/18 History carvedilol 25 mg PO 1300 03/14/18 03/15/18 History doxycycline hyclate 100 mg PO BID 7 Days #14 tab 03/14/18 03/15/18 Rx lisinopril 40 mg PO DAILY 03/14/18 03/15/18 History metformin 1,000 mg PO BID 03/14/18 03/15/18 History chlorthalidone 25 mg PO DAILY 03/15/18 03/15/18 History glipizide 10 mg PO BID 03/15/18 03/15/18 History Allergies Allergy/AdvReac Type Severity Reaction Status Date / Time No Known Drug Allergies Allergy Verified 03/14/18 09:41 Review of Systems Review of Systems All systems reviewed & are unremarkable except as noted in HPI and below Exam Vital Signs (past 8 hours): - 03/15/18 10:10 03/15/18 11:54 03/15/18 14:01 Temperature 98.5 F Pulse Rate 77 74 81 Respiratory Rate 20 19 18 Blood Pressure 170/101 H 134/75 Blood Pressure [Left Arm] 146/87 H Pulse Oximetry 98 100 98 03/15/18 14:29 03/15/18 14:45 03/15/18 15:00 Temperature 97.9 F Pulse Rate 67 82 76 Respiratory Rate 16 20 Blood Pressure 176/107 H 159/110 H Blood Pressure [Left Arm] 137/93 H Pulse Oximetry 97 99 Oxygen Delivery Method Room Air Narrative Exam Narrative: Alert and oriented male in no acute distress lying in bed. Lungs clear to auscultation bilaterally Heart rate regular rate and rhythm Abdomen soft Musculoskeletal examination: Bilateral upper extremities benign in appearance full range of motion and no swelling or erythema no signs or symptoms of infection. Right lower extremity: Ulcerations with the bandages in place along the right lower extremity no foot ulcerations noted. Palpable dorsalis pedis pulse. Sensation grossly intact to light touch. No erythema swelling or signs or symptoms of infection. Left lower extremity: 3 distinct ulcerations at the 5th metatarsal head 1 plantarly on dorsally and 1 laterally with a purulent exudate. Toe appears viable and pink with brisk capillary refill. Mild surrounding erythema. No crepitance no subcutaneous gas. Moderate tenderness to palpation. Patient demonstrates active dorsiflexion plantar flexion. Calf is soft. 2+ palpable dorsalis pedis pulse. Moderate plantar lateral callus formation At 5th metatarsal head Objective Imaging Ft x-ray left: My impression: Three views left [facility] 03/15/2018 demonstrate no evidence of acute fracture dislocation. There is a deformity at the neck of the 5th metatarsal consistent with previous trauma. There is erosion into the 5th metatarsal neck and head also likely erosive changes into the base of the 5th toe proximal phalanx with the lucency and deformity in the soft tissues consistent with ulceration at the same area. There are moderate degenerative changes throughout the midfoot and a large plantar calcaneal spur. Radiologist's impression: IMPRESSION: 1. Erosive changes involving the head of the 5th metatarsal and the base of the proximal phalanx of the 5th toe is suspicious for osteomyelitis, particularly given the soft tissue defect at this location. MRI with intravenous contrast would be helpful for better evaluation. 2. Prominent degenerative changes of the midfoot. 3. Apparent old injury of the 5th metatarsal. 4. Mild sclerosis involving the base of the 3rd metatarsal may be degenerative. If there is clinical concern for a stress fracture, this could be addressed at the time of the MRI. Dictated by: Rene Morales M.D. on 03/15/2018 at 11:41 Approved by: Rene Morales M.D. on 03/15/2018 at 11:46 Labs Result Diagrams: 03/15/18 10:25 03/15/18 10:25 Labs: Laboratory Results - last 24 hr 03/15/18 03/15/18 03/15/18 10:25 10:25 10:25 WBC 7.7 RBC 5.28 Hgb 15.2 Hct 43.9 MCV 83.0 MCH 28.7 MCHC 34.5 RDW 12.9 Plt Count 336 Neut % (Auto) 56.7 Lymph % (Auto) 30.6 [place] % (Auto) 9.3 Eos % (Auto) 2.8 Baso % (Auto) 0.6 Neut # (Auto) 4300 Lymph # (Auto) 2300 [place] # (Auto) 700 Eos # (Auto) 200 Baso # (Auto) 0 ESR PT 12.3 INR 1.1 APTT 31 Sodium Potassium Chloride Carbon Dioxide BUN Creatinine Estimated GFR BUN/Creatinine Ratio Glucose Lactate Calcium Total Bilirubin AST ALT Alkaline Phosphatase C-Reactive Protein Total Protein Albumin Globulin Albumin/Globulin Ratio Lipase Procalcitonin < 0.05 03/15/18 03/15/18 03/15/18 10:25 10:25 10:25 WBC RBC Hgb Hct MCV MCH MCHC RDW Plt Count Neut % (Auto) Lymph % (Auto) [place] % (Auto) Eos % (Auto) Baso % (Auto) Neut # (Auto) Lymph # (Auto) [place] # (Auto) Eos # (Auto) Baso # (Auto) ESR 19 H PT INR APTT Sodium 137 Potassium 3.8 Chloride 97 L Carbon Dioxide 27 BUN 19 Creatinine 0.80 Estimated GFR > 60.0 BUN/Creatinine Ratio 23.8 H Glucose 266 H Lactate 1.0 Calcium 9.1 Total Bilirubin 0.7 AST 43 ALT 59 Alkaline Phosphatase 70 C-Reactive Protein Total Protein 8.2 Albumin 4.2 Globulin 4.0 Albumin/Globulin Ratio 1.1 Lipase 279 Procalcitonin 03/15/18 10:25 WBC RBC Hgb Hct MCV MCH MCHC RDW Plt Count Neut % (Auto) Lymph % (Auto) [place] % (Auto) Eos % (Auto) Baso % (Auto) Neut # (Auto) Lymph # (Auto) [place] # (Auto) Eos # (Auto) Baso # (Auto) ESR PT INR APTT Sodium Potassium Chloride Carbon Dioxide BUN Creatinine Estimated GFR BUN/Creatinine Ratio Glucose Lactate Calcium Total Bilirubin AST ALT Alkaline Phosphatase C-Reactive Protein 3.1 H Total Protein Albumin Globulin Albumin/Globulin Ratio Lipase Procalcitonin Assessment & Plan Assessment Narrative: Left foot 5th MT osteo and ulcer. 1. new HgbA1C to assess DM control 2. MRI w/wo L foot assess osteo and plan either OR (excisional I&D and bone biopsy for salvage versus partial amp 5th mt with toe.) if salvage attempted will likely require approx. 6 weeks IV ABx for osteo treatment. 3. will continue empiric abx for now 4. also f/u wound cx from clinic 5. pt not septic and vs stable so will get MR before surgery Plan Narrative: Diabetes: New hemoglobin A1c is 10.9 represents uncontrolled diabetes encourage, tight glucose control medications are insulin as needed to obtain adequate glucose control and limit comorbidities. Left foot ulceration: Patient has MRI with and without contrast scheduled for 11:00 a.m.. We will obtain this to get a better idea of the extent of bone involvement of the osteomyelitis then planned operative debridement with formal bone biopsy. Discussed that with multiple ulcerations wound like to be packed open and may need return trip for additional washout. We discussed initially trying to preserve as much of the toe as possible and treat with debridement and IV antibiotics. We discussed a course of IV antibiotics will be based on intraoperative cultures and would recommend formal Infectious Disease consult likely need for antibiotics approximately 6 weeks for osteomyelitis. We discussed the patient may need additional trips to the operating room and if the toe does not survive may need additional amputation. Would also need continued wound care with the wound care center and likely conversion to a negative pressure dressing on discharge. Patient will remain NPO today and delete OR tentatively scheduled at 1:00 p.m. for after the MRI scan. The risks and benefits and alternatives to the surgery were discussed with the patient in detail including risks for persistent infection, need for additional procedures, need for additional procedures including amputation, DVT, pulmonary embolism, cardiopulmonary complications up to and including . Patient understands and agrees with the plan. Surgical consent was signed. Time Spent With Patient Time with patient: less than 15 minutes
[2018-03-15 16:46] LABS: Hemoglobin A1C% w Est Avg Glu 10.9 % (4.0-6.0)
[2018-03-15] MEDS: CARVEDILOL 25 MG TABLET PO (16:57)
[2018-03-15] MEDS: INSULIN ASPART 100 UNIT/ML INSULN PEN SUBCUT ×2 (16:58→20:48)
--- NOTE | 2018-03-15 17:43 | P.HP_ITS ---
History of Present Illness Date Patient Seen: 03/15/18 Chief complaint: INFECTION ON LEFT FOOT/WOUNDS ON RIGHT LEG Narrative: Patient is a 47-year-old male with history of type 2 diabetes with neuropathy, lower extremity ulcerations, hypertension presented to emergency department due to worsening ulcerations of left ft. He states that about a week ago, this past weekend, he noticed ulcers opening up on the left distal foot. This was accompanied by drainage, redness, fever and chills. He had some antibiotics from a prior prescription which she took 3 doses and fevers and chills seem to subside. However appearance of ulcers was getting worse and he presented to the ER on 03/14/2018 for evaluation. He was discharged on doxycycline with referral to [facility]ound Care [facility] where he was seen earlier today. At Wound Care they debrided ulcers but were concerned with appearance and referred him back to the ER whereupon he was directed to admission. Patient states that a couple months ago he had an ulcer in same area which he self treated and it seemed to heal up. He also has chronic non pressure ulcerations on right garcia which he feels are unchanged. He had foot x-ray performed at today's ER visit which suggested erosive changes involving the head of the 5th metatarsal suspicious for osteomyelitis. His WBC is normal without any left shift, ESR 19, CRP 3.1, glucose 266, A1c 10.9. Patient reports blood sugars at home usually in the 200s. He reports compliance with home medications. Patient History Medical History Congestive heart failure (Acute) Diabetes (Acute) Diabetes mellitus (Acute) Surgical History No pertinent past surgical history (Acute) Social History Smoking Status: Never smoker Family & Social History Social History: household members spouse,children Prior Living Arrangements Apartment/Condo Safety & Behavioral: Feels Safe in Current Yes Environment Been Physically Hurt or No Threatened By a Person Suicidal Ideation Description None Suicide Plan Description No Plan Tobacco & Substance use: Tobacco type cigarettes,cannabis/marijuana Smoking Status Former smoker alcohol intake never alcohol intake frequency 0-2 drinks per day Substance Use Type marijuana Meds Home Medications Medication Instructions Recorded Confirmed Type amlodipine 10 mg PO DAILY 03/14/18 03/15/18 History carvedilol 25 mg PO 1300 03/14/18 03/15/18 History doxycycline hyclate 100 mg PO BID 7 Days #14 tab 03/14/18 03/15/18 Rx lisinopril 40 mg PO DAILY 03/14/18 03/15/18 History metformin 1,000 mg PO BID 03/14/18 03/15/18 History chlorthalidone 25 mg PO DAILY 03/15/18 03/15/18 History glipizide 10 mg PO BID 03/15/18 03/15/18 History Allergies Allergy/AdvReac Type Severity Reaction Status Date / Time No Known Drug Allergies Allergy Verified 03/14/18 09:41 Review of Systems Review of Systems All systems reviewed & are unremarkable except as noted in HPI and below Exam Vital Signs (past 8 hours): - 03/15/18 10:10 03/15/18 11:54 03/15/18 14:01 Temperature 98.5 F Pulse Rate 77 74 81 Respiratory Rate 20 19 18 Blood Pressure 170/101 H 134/75 Blood Pressure [Left Arm] 146/87 H Pulse Oximetry 98 100 98 03/15/18 14:29 03/15/18 14:45 03/15/18 15:00 Temperature 97.9 F Pulse Rate 67 82 76 Respiratory Rate 16 20 Blood Pressure 176/107 H 159/110 H Blood Pressure [Left Arm] 137/93 H Pulse Oximetry 97 99 03/15/18 16:00 03/15/18 16:57 Temperature 98.7 F Pulse Rate 74 72 Respiratory Rate 20 Blood Pressure 179/113 H 179/113 H Blood Pressure [Left Arm] Pulse Oximetry 99 Oxygen Delivery Method Room Air Narrative Exam Narrative: GENERAL: Alert very pleasant and cooperative male lying in bed HEAD: Atraumatic. Normocephalic. EYES: Pupils equal, round and reactive. Extraocular motions intact. No scleral icterus. No injection or drainage. OROPHARYNX: moist mucosa NECK: Trachea midline. No JVD or lymphadenopathy. CARDIOVASCULAR: Regular rate and rhythm without murmurs, gallops, or rubs. RESPIRATORY: Clear to auscultation bilaterally. GASTROINTESTINAL: Abdomen obese, nondistended, soft, non-tender. No hepato-s plenomegaly, or palpable masses. EXTREMITIES: No pretibial edema. RLE: Large superficial erosions #2 on right mid and lower garcia. LLE: There are 3 deep ulcerations at the head of the left 5th metatarsal, 2 ulcers on dorsum and 1 ulcer on the side, with benoit as sharp on ulcer bases, with significant erythema surrounding these ulcers. Dorsalis pedis pulses easily palpable 2+ bilaterally. NEUROLOGICAL: Alert, well oriented, speech is intact, normal bilateral upper and lower extremity strength Objective Labs Result Diagrams: 03/15/18 10:25 03/15/18 10:25 Labs: Laboratory Results - last 24 hr 03/15/18 03/15/18 03/15/18 10:25 10:25 10:25 WBC 7.7 RBC 5.28 Hgb 15.2 Hct 43.9 MCV 83.0 MCH 28.7 MCHC 34.5 RDW 12.9 Plt Count 336 Neut % (Auto) 56.7 Lymph % (Auto) 30.6 [place] % (Auto) 9.3 Eos % (Auto) 2.8 Baso % (Auto) 0.6 Neut # (Auto) 4300 Lymph # (Auto) 2300 [place] # (Auto) 700 Eos # (Auto) 200 Baso # (Auto) 0 ESR PT 12.3 INR 1.1 APTT 31 Sodium Potassium Chloride Carbon Dioxide BUN Creatinine Estimated GFR BUN/Creatinine Ratio Glucose Hemoglobin A1c Lactate Calcium Total Bilirubin AST ALT Alkaline Phosphatase C-Reactive Protein Total Protein Albumin Globulin Albumin/Globulin Ratio Lipase Procalcitonin < 0.05 03/15/18 03/15/18 03/15/18 10:25 10:25 10:25 WBC RBC Hgb Hct MCV MCH MCHC RDW Plt Count Neut % (Auto) Lymph % (Auto) [place] % (Auto) Eos % (Auto) Baso % (Auto) Neut # (Auto) Lymph # (Auto) [place] # (Auto) Eos # (Auto) Baso # (Auto) ESR 19 H PT INR APTT Sodium 137 Potassium 3.8 Chloride 97 L Carbon Dioxide 27 BUN 19 Creatinine 0.80 Estimated GFR > 60.0 BUN/Creatinine Ratio 23.8 H Glucose 266 H Hemoglobin A1c Lactate 1.0 Calcium 9.1 Total Bilirubin 0.7 AST 43 ALT 59 Alkaline Phosphatase 70 C-Reactive Protein Total Protein 8.2 Albumin 4.2 Globulin 4.0 Albumin/Globulin Ratio 1.1 Lipase 279 Procalcitonin 03/15/18 03/15/18 03/15/18 10:25 10:25 10:25 WBC RBC Hgb Hct MCV MCH MCHC RDW Plt Count Neut % (Auto) Lymph % (Auto) [place] % (Auto) Eos % (Auto) Baso % (Auto) Neut # (Auto) Lymph # (Auto) [place] # (Auto) Eos # (Auto) Baso # (Auto) ESR PT INR APTT Sodium Potassium Chloride Carbon Dioxide BUN Creatinine Estimated GFR BUN/Creatinine Ratio Glucose Hemoglobin A1c Cancelled 10.9 H Lactate Calcium Total Bilirubin AST ALT Alkaline Phosphatase C-Reactive Protein 3.1 H Total Protein Albumin Globulin Albumin/Globulin Ratio Lipase Procalcitonin Assessment & Plan Assessment Narrative: This is a 47-year-old male with poorly controlled diabetes with neuropathy presents with left foot cellulitis and non pressure ulcerations with x-ray suggestive of osteomyelitis. 1. Left foot non pressure ulcerations with cellulitis and possible osteomyelitis -wound cultures sent from wound care clinic, blood cultures obtained in ED -normal WBC, ESR 19, CRP 3.1 -started on vancomycin and Rocephin empiric coverage for Staph aureus and gram- negative bacteria -obtain MRI with and without contrast -consult pending from Dr. Leni Noland -NPO after midnight for likely OR debridement and bone biopsy in a.m. -start DVT prophylaxis postop 2. Type 2 diabetes with neuropathy, poor control -hemoglobin A1c 10.9 -continue glipizide 10 mg b.i.d., metformin 1000 mg b.i.d. per home routine, consider adding insulin or 3rd agent to improve control -NovoLog low-dose sliding scale 3. Hypertension, uncertain control -patient hypertensive on admit with BP 179/113, normal renal function -resume home routine carvedilol 25 mg q.d., chlorthalidone 25 mg q.d., amlodipine 10 mg q.d., lisinopril 40 mg q.d.
[2018-03-15 19:43] LABS: Bacteria Urine None Seen; RBC Urine None Seen (0-5/HPF); WBC Urine None Seen (0-5/HPF)
[2018-03-15 19:51] LABS: Appearance Urine UA CLEAR; Bilirubin Urine UA NEGATIVE (NEGATIVE); Color Urine UA YELLOW; Glucose Urine UA NEGATIVE (Negative); Ketones Urine UA NEGATIVE (NEGATIVE); Leukocyte Esterase Urine UA NEGATIVE (NEGATIVE); Nitrite Urine UA NEGATIVE (Negative); Occult Blood Urine UA NEGATIVE (Negative); Protein Urine UA NEGATIVE (Negative); Specific Gravity Urine UA 1.015 (1.000-1.035); Urobilinogen Urine UA 0.2 E.U./dL (0.2)
[2018-03-15 19:52] LABS: Culture Indicated Urine Cult Not Indicated; Urine Comments Microscopic Normal
[2018-03-15] MEDS: glipiZIDE 5 MG TABLET 10 MG PO (20:47)
[2018-03-15] MEDS: METFORMIN HCL 500 MG TABLET 1000 MG PO (20:47)
[2018-03-15] MEDS: ACETAMINOPHEN 325 MG TABLET 650 MG PO (20:53)
--- NOTE | 2018-03-15 22:15 | PC.NURSE ---
Pt has multiple LE ulcers, 2 to R garcia, 1 to L lateral 5th toe. Ulcers to R garcia dressed today by wound care, dressings CDI. Left in place. Ulcer to L 5th toe weeping small amounts of serosang drainage, covered with gauze and wrapped in kerlix. Pt reports good pain control with PRN tylenol. MRI and surgical consult scheduled for tomorrow. BP elevated 179/113, improved to 138/87 with one time dose of 25mg coreg. A/Ox4, able to make needs known. SBA in room. Will cont to monitor
[2018-03-16] VITALS (21 sets, daily range): BP systolic 86–159; BP diastolic 58–102; PULSE 64–79; RESP 9–19; TEMP 35.6–37.2; O2SAT 88–99; BMI 39.1
--- NOTE | 2018-03-16 | PATH_ITS ---
[facility] Accession Number: [id number] . 01 Material submitted: . HEAD PROXIMAL PHALANX LEFT FOOT . 01 Diagnosis: Left Foot, Head of Proximal Phalanx, Amputation: Chronic osteomyelitis with focal bone marrow fibrosis. MRV/03/22/2018 . 01 Electronically signed: . Chyna Kingston MD, Pathologist NPI- [id number] . 01 Gross description: . Received in formalin, labeled head proximal phalanx left foot, is a resected metatarsal head (1.8 x 1.6 x 0.9 cm). The bone is easily sliced with a scalpel. The resection margin is inked black. A roofing sales representative perpendicular section is decalcified and submitted in cassette A1. ([id number]) /[facility] . 01 Pathologist provided ICD-10: M86.672 . 01 CPT . 961738, [id number] Performed at: [address] [facility] [address], [place], [place] [id number] MD Nemesio Regalado MD Phone: [phone]
[2018-03-16] MEDS: VANCOMYCIN 1,500 MG in SODIUM CHLORIDE 0.9% 500 ML 333.333 ML IV ×3 (00:10→20:35)
[2018-03-16] MEDS: SODIUM CHLORIDE 0.9% FLUSH 10 ML IV ×3 (00:10→20:35)
--- NOTE | 2018-03-16 00:25 | PC.NURSE ---
Addendum entered by Sandra Meyer R.N. 03/16/18 07:49: Noted discrepancy in weight from admission of 176kg to this mornings of 127.3kg. Re zeroed bed and weight remains same so rechecked with chair scale with same weight recorded. Original Note: Patient is alert and oriented. Breath sounds CTA with RA sat of 96%. HRR. Last recorded BP elevated at 146/66. Denies nausea. BT present and abdomen is soft. Voiding without dysuria, frequency, urgency and using urinal. Independent with bed mobility. Dressings to right LE are both CDI. Dressing to right foot is intact with small amount sanguinous drainage noted. States pain is currently only 1/10. Venous discoloration BLE and skin is flaky. Has scattered numbness (neuropathy) bilateral feet. Fall risk score is moderate; patient is oriented and calls appropriately.
--- NOTE | 2018-03-16 08:39 | PM.PN.1 ---
Subjective Interval history: HE STATES THAT HE HAS NO PAIN OF HIS LEFT FOOT. Additionally has no chills rigors nausea vomiting Exam Vital Signs (past 8 hours): - 03/16/18 00:45 03/16/18 04:00 03/16/18 08:09 Temperature 98.4 F 98.4 F Pulse Rate 66 73 Respiratory Rate 16 16 Blood Pressure 116/75 151/98 H Pulse Oximetry 98 95 97 Oxygen Delivery Method Room Air Narrative Exam Narrative: GENERAL: Alert very pleasant and cooperative male lying in bed HEAD: Atraumatic. Normocephalic. EYES: Pupils equal, round and reactive. Extraocular motions intact. No scleral icterus. No injection or drainage. OROPHARYNX: moist mucosa NECK: Trachea midline. No JVD or lymphadenopathy. CARDIOVASCULAR: Regular rate and rhythm without murmurs, gallops, or rubs. RESPIRATORY: Clear to auscultation bilaterally. GASTROINTESTINAL: Abdomen obese, nondistended, soft, non-tender. No hepato-splenomegaly, or palpable masses. EXTREMITIES: No pretibial edema. LLE: Ft is Evert wrapped. Dorsalis pedis pulses easily palpable 2+ bilaterally. NEUROLOGICAL: Alert, well oriented, speech is intact, normal bilateral upper and lower extremity strength Objective Labs Result Diagrams: 03/15/18 10:25 03/15/18 10:25 Labs: Laboratory Results - last 24 hr 03/15/18 03/15/18 03/15/18 10:25 10:25 10:25 WBC 7.7 RBC 5.28 Hgb 15.2 Hct 43.9 MCV 83.0 MCH 28.7 MCHC 34.5 RDW 12.9 Plt Count 336 Neut % (Auto) 56.7 Lymph % (Auto) 30.6 [place] % (Auto) 9.3 Eos % (Auto) 2.8 Baso % (Auto) 0.6 Neut # (Auto) 4300 Lymph # (Auto) 2300 [place] # (Auto) 700 Eos # (Auto) 200 Baso # (Auto) 0 ESR PT 12.3 INR 1.1 APTT 31 Sodium Potassium Chloride Carbon Dioxide BUN Creatinine Estimated GFR BUN/Creatinine Ratio Glucose Hemoglobin A1c Lactate Calcium Total Bilirubin AST ALT Alkaline Phosphatase C-Reactive Protein Total Protein Albumin Globulin Albumin/Globulin Ratio Lipase Procalcitonin < 0.05 Urine Color Urine Appearance Urine pH Ur Specific [place] Urine Protein Urine Glucose (UA) Urine Ketones Urine Occult Blood Urine Nitrate Urine Bilirubin Urine Urobilinogen Ur Leukocyte Esterase Urine RBC Urine WBC Urine Bacteria Ur Culture Indicated? Micro UA Comment 03/15/18 03/15/18 03/15/18 10:25 10:25 10:25 WBC RBC Hgb Hct MCV MCH MCHC RDW Plt Count Neut % (Auto) Lymph % (Auto) [place] % (Auto) Eos % (Auto) Baso % (Auto) Neut # (Auto) Lymph # (Auto) [place] # (Auto) Eos # (Auto) Baso # (Auto) ESR 19 H PT INR APTT Sodium 137 Potassium 3.8 Chloride 97 L Carbon Dioxide 27 BUN 19 Creatinine 0.80 Estimated GFR > 60.0 BUN/Creatinine Ratio 23.8 H Glucose 266 H Hemoglobin A1c Lactate 1.0 Calcium 9.1 Total Bilirubin 0.7 AST 43 ALT 59 Alkaline Phosphatase 70 C-Reactive Protein Total Protein 8.2 Albumin 4.2 Globulin 4.0 Albumin/Globulin Ratio 1.1 Lipase 279 Procalcitonin Urine Color Urine Appearance Urine pH Ur Specific [place] Urine Protein Urine Glucose (UA) Urine Ketones Urine Occult Blood Urine Nitrate Urine Bilirubin Urine Urobilinogen Ur Leukocyte Esterase Urine RBC Urine WBC Urine Bacteria Ur Culture Indicated? Micro UA Comment 03/15/18 03/15/18 03/15/18 10:25 10:25 10:25 WBC RBC Hgb Hct MCV MCH MCHC RDW Plt Count Neut % (Auto) Lymph % (Auto) [place] % (Auto) Eos % (Auto) Baso % (Auto) Neut # (Auto) Lymph # (Auto) [place] # (Auto) Eos # (Auto) Baso # (Auto) ESR PT INR APTT Sodium Potassium Chloride Carbon Dioxide BUN Creatinine Estimated GFR BUN/Creatinine Ratio Glucose Hemoglobin A1c Cancelled 10.9 H Lactate Calcium Total Bilirubin AST ALT Alkaline Phosphatase C-Reactive Protein 3.1 H Total Protein Albumin Globulin Albumin/Globulin Ratio Lipase Procalcitonin Urine Color Urine Appearance Urine pH Ur Specific [place] Urine Protein Urine Glucose (UA) Urine Ketones Urine Occult Blood Urine Nitrate Urine Bilirubin Urine Urobilinogen Ur Leukocyte Esterase Urine RBC Urine WBC Urine Bacteria Ur Culture Indicated? Micro UA Comment 03/15/18 17:00 WBC RBC Hgb Hct MCV MCH MCHC RDW Plt Count Neut % (Auto) Lymph % (Auto) [place] % (Auto) Eos % (Auto) Baso % (Auto) Neut # (Auto) Lymph # (Auto) [place] # (Auto) Eos # (Auto) Baso # (Auto) ESR PT INR APTT Sodium Potassium Chloride Carbon Dioxide BUN Creatinine Estimated GFR BUN/Creatinine Ratio Glucose Hemoglobin A1c Lactate Calcium Total Bilirubin AST ALT Alkaline Phosphatase C-Reactive Protein Total Protein Albumin Globulin Albumin/Globulin Ratio Lipase Procalcitonin Urine Color Yellow Urine Appearance Clear Urine pH 7.0 Ur Specific [place] 1.015 Urine Protein Negative Urine Glucose (UA) Negative Urine Ketones Negative Urine Occult Blood Negative Urine Nitrate Negative Urine Bilirubin Negative Urine Urobilinogen 0.2 Ur Leukocyte Esterase Negative Urine RBC None seen Urine WBC None seen Urine Bacteria None seen Ur Culture Indicated? Cult not indicated Micro UA Comment Microscopic normal Assessment & Plan Assessment Narrative: 1. Left foot non pressure ulcerations with cellulitis and possible osteomyelitis -wound cultures sent from wound care clinic, blood cultures are no growth to date -normal WBC, ESR 19, CRP 3.1 -culture wounds right foot revealed 2 species of Gram-positive cocci - vancomycin and Rocephin day 1 for both -MRI to be done this morning - Dr. Leni Noland to see -he has been NPO after midnight for possible OR debridement and bone biopsy this a.m. -start DVT prophylaxis postop -CBC, CMP in a.m. 2. Type 2 diabetes with neuropathy, poor control -hemoglobin A1c 10.9 -continue glipizide 10 mg b.i.d., metformin 1000 mg b.i.d. per home routine, consider adding insulin or 3rd agent to improve control -NovoLog low-dose sliding scale 3. Hypertension, uncertain control -patient hypertensive on admission - home meds carvedilol 25 mg q.d., chlorthalidone 25 mg q.d., amlodipine 10 mg q.d., lisinopril 40 mg q.d. were resumed
[2018-03-16] MEDS: glipiZIDE 5 MG TABLET 10 MG PO ×2 (08:49→20:33)
[2018-03-16] MEDS: CHLORTHALIDONE 25 MG TABLET PO (08:49)
[2018-03-16] MEDS: LISINOPRIL 20 MG TABLET 40 MG PO (08:50)
[2018-03-16] MEDS: AMLODIPINE 5 MG TABLET 10 MG PO (08:50)
[2018-03-16] MEDS: METFORMIN HCL 500 MG TABLET 1000 MG PO ×2 (08:50→20:33)
[2018-03-16] MEDS: ACETAMINOPHEN 325 MG TABLET 650 MG PO (10:16)
[2018-03-16] MEDS: CEFTRIAXONE 2 GM/50 ML FROZ.PIGGY IV (10:18)
[2018-03-16] MEDS: INSULIN ASPART 100 UNIT/ML INSULN PEN SUBCUT ×2 (10:18→17:31)
--- NOTE | 2018-03-16 11:56 | PC.NURSE ---
Day shift: Pt left for foot surgery at approx 1200. He has his cell phone. IV Vanco still hanging. Surgery RN said she would keep giving it to him. VS ok. Has only had PO meds with small sips of water per MD Aaron.
[2018-03-16] MEDS: INSULIN REGULAR 100 UNIT/ML 3 ML VIAL SUBCUT (12:13)
[2018-03-16] MEDS: LACTATED RINGERS 1,000 ML 42 ML IV (12:15)
--- NOTE | 2018-03-16 12:21 | SUR.HOLD ---
SQ insulin administer in left upper abdomen per pt choice
--- NOTE | 2018-03-16 13:01 | SUR.OPER ---
Supine on padded OR bed, head on pillow, arms secured on padded arm boards at <90 degrees abduction, legs uncrossed, safety belt at thigh, tape over blanket over lower legs.
--- NOTE | 2018-03-16 13:30 | PC.NURSE ---
Day shift: Pt remains off of AC unit at times.
[2018-03-16] MEDS: BUPIVACAINE 0.25% (PF) VIAL 30 ML INJ (13:53)
--- NOTE | 2018-03-16 13:56 | P.OP_ITS ---
Operative Date/Time/Diagnoses Date of procedure: 03/16/18 Time of procedure: 12:39 Pre-op diagnosis: 1. Diabetic foot ulcer with osteomyelitis left foot 5th metatarsal. E11.621 2. Uncontrolled diabetes type 2 with foot ulcer Post-op diagnosis: same Procedure & Clinicians Procedure: 1. Complete excision 5th metatarsal head-T4, left foot CPT code 28868 2. Partial excision the phalangeal base toe 5th proximal phalanx T4, left CPT code 73074 3. Irrigation debridement, excisional soft tissue and bone less than 20 sq cm cpt code 93796 Same procedure as scheduled: Yes Indications: Patient is a 47-year-old male with diabetes type 2 that is uncontrolled hemoglobin A1c 10.9. The patient presents with infected and draining ulcers at his 5th metatarsal head that probed to bone with gross purulence and erosive changes on x-ray consistent with osteomyelitis. MRI scan also consistent with osteomyelitis of the 5th metatarsal head and neck and likely involvement at the base of the proximal phalanx. Patient has been indicated for operative debridement as well as a bone biopsy. The risks benefits and alternatives to surgery were discussed with the patient in detail including need for additional infection need for additional amputation, persistent infection, pain, nerve and vessel damage, DVT, PE, cardiopulmonary complications up to and including . The patient has expressed his written informed consent to proceed with the above schedule surgery. We will try to preserve the toe for now but the patient does understand that if he has a continued infection or if the toe appears nonviable he may need an amputation in the future. Surgeon: Sally Aaron Click Yes if Unassisted: Yes Anesthesia Type: General Operative Notes Findings: Three separate ulcerations draining gross purulence with necrotic tissue and erosive changes and softening of the metatarsal head consistent with osteomyelitis. There is devitalized tissue tracking a towards the 4th webspace. The toe the remains pink and satisfactorily perfused. They are debridement was taken of the skin soft tissue muscle necrotic tissue. Bone was resected at a level corresponding to the MRI scan at the 5th metatarsal shaft as well as a small resection at the proximal phalanx base these were sent for micro and pathology. Wound was thoroughly irrigated and packed open except for a few sutures proximally. Remaining tissue was bleeding well. Closure Type: not applicable Specimen(s): other (Tissue and bone for pathology and microbiology) Prosthetic devices, grafts, tissues, transplants, or devices: None Applied: other (Packing wet to dry dressing) Estimated Blood Loss (mL): 10 Blood products transfused: none Tourniquet time (min): 0 Procedure in detail: Patient was seen in the preoperative area the site of surgery was marked and informed consent confirmed. The patient was then brought back to the operating room and placed supine on the operative table. General anesthesia was administered. All bony prominences well padded. A hip bump was placed under the ipsilateral leg. No tourniquet was used. Formal time-out procedure was performed confirming the patient's side and site of surgery and presence of informed consent. The patient was on scheduled IV antibiotics. All were in agreement Attention was turned to the left lateral border of the foot. There were 3 separate ulcerations a dorsal lateral and plantar ulceration the level of the 5th metatarsal head this was draining gross purulence. Intraoperative cultures were taken. Then a dorsal lateral incision was made between the dorsal lateral ulcerations and thorough debridement of the soft tissue skin subcutaneous tissue and muscle was undertaken down to the level of the 5th MTP joint. This was antony ssly involved. There was nonviable muscle and subcutaneous tissue also tracking dorsally over the 1st metatarsal phalangeal joint towards the 4th webspace this was debrided thoroughly. The extensor tendon was noted to be intact was debrided but left intact. Dissection was taken down to to the 5th metatarsal head and neck and shaft. Based off the MRI and x-ray a resection with a TTS saw was taken obliquely across the metatarsal shaft at the level of the previous fracture and signal change demarcation on the MRI. Care was taken to make sure this was beveled plantarly. Additionally a small resection of the proximal phalanx of the 5th toe was taken also divided and sent to microbiology and pathology. The wound was irrigated thoroughly with 3 L of saline all remaining tissue was bleeding well. No tourniquet was used for the procedure. Toe was noted to have brisk capillary refill. The wound was then packed with a wet to dry dressing. Two nylon sutures were placed proximally. And a dry gauze dressing ABD pad Kerlix and Evert wrap were placed. Patient was awoken from anesthesia and taken to the recovery room in good condition. There no immediate complications from this procedure. All counts were correct. Complications: none Condition: stable Disposition: PACU Plan for aftercare: Patient will be taken back to the floor. he will be weightbearing as tolerated in a postoperative shoe. He will get scheduled IV abx. He will need outpatient IV abx. this will be per primary team or ID consult as indicated.we will do a wound check sunday to decide if return OR is needed vs WTD dsg changes and possbile conversion to a NPWT (wound vac) with wound care. cultures will be followed
--- NOTE | 2018-03-16 14:09 | PC.NURSE ---
Day shift: Pt back on unit at approx 1405 from PACU. VS ok. CIRILO wrapped left foot is CDI. Call light in reach. No c/o pain or discomfort.
--- NOTE | 2018-03-16 14:25 | SUR.PHASEI ---
pt transferred to acute care floor in stable condition, vss. pt alert and talking to rn during transport to room. bedside report given to RANI Major upon arrival to room. transferred care of pt to RANI Major at that time.
--- NOTE | 2018-03-16 14:42 | CM.DANOTE ---
Patient is a 47 year old male who was admitted on 03/15/18 for Infection Left Foot/Wounds. Pt has [employer] and [facility] for insurance and his PCP is Dr. Ovalles at [facility]. EMR was reviewed. Per MD, pt has ulcers and cellulitis of wounds and currently on IV-Abx and Surg Consult Pending. Per Surgeon, pt to have I&D and bone biopsy today. Pt was off the floor for surgical procedure and per Surgeon Dr. Aaron pt tolerated procedure well and currently has wound vac and on IV-Abx which may be needed at discharge. Surgeon to do wound check on pt on Sunday to determine if further surgery needed. SW briefly met bedside with pt and explained role when he returned from surgery and pt groggy and requesting SW to come back at another time. Plan: SW to follow closely to determine d/c planning needs of possible IV-Abx at discharge and if pt will be safe for d/c home with family when medically stable. Surgeon to determine if further surgery needed on Sunday. 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 No Advance Directives on File No History Provided By Patient Medical Record Has Patient been admitted in last 30 No days? Prior Living Arrangements Apartment/Condo Household Members spouse children Type of transporation used prior to Drives own vehicle admit Independent with ADL's Yes Is patient alert and oriented? Yes Caregiver for Another No Comment Waiting for further wound check on Sunday to determine d /c planning needs. Barriers to Discharge No Discharge Plan Home Transportation Arrangement Family likely can provide transport home when stable. Additional Comment Waiting for wound check on Sunday for d/c needs. Review Status In Process Please Provide Date Initial DC 03/16/18 Assessment Was Performed Next Review Type Continued Stay Review
[2018-03-16 16:33] LABS: Vancomycin Trough 25.8 ug/mL (10-20)
[2018-03-16] MEDS: VANCOMYCIN TROUGH 1 REQUEST MISC (17:19)
[2018-03-16] MEDS: ONDANSETRON 4 MG/2 ML INJ IV (17:45)
[2018-03-17] VITALS (8 sets, daily range): BP systolic 129–141; BP diastolic 79–93; PULSE 70–88; RESP 16–20; TEMP 36.4–36.9; O2SAT 95–98
[2018-03-17 05:36] LABS: Add Manual Diff / Slide Review NO; Basophils Absolute Auto 100 /uL (0-100); Basophils Percent Auto 0.6 % (0-2); Eosinophils Absolute Auto 200 /uL (0-450); Eosinophils Percent Auto 2.6 % (2-4); Hematocrit 43.4 % (41-53); Hemoglobin 14.6 g/dL (13.5-17.5); Lymphocytes Absolute Auto 2200 /uL (1100-4500); Lymphocytes Percent Auto 23.8 % (25-40); Mean Corpuscular HGB Conc 33.8 % (30-36); Mean Corpuscular Hemoglobin 28.1 PG (26-34); Mean Corpuscular Volume 83.1 fL (80-100); Monocytes Absolute Auto 900 /uL (0-900); Monocytes Percent Auto 9.7 % (3-14); Neutrophils Absolute Auto 5700 /uL (1500-7000); Neutrophils Percent Auto 63.3 % (50-75); Platelet Count 309 X10^3/uL (150-400); Red Blood Cell Count 5.22 X10^6/uL (4.5-5.9); Red Cell Distribution Width 13.1 % (11.6-14.8)
[2018-03-17 05:46] LABS: Alanine Aminotransferase 46 IU/L (21-72); Albumin 3.8 g/dL (3.5-5.0); Alkaline Phosphatase 53 U/L (38-126); Aspartate Aminotransferase 31 IU/L (17-59); BUN Creatinine Ratio 12.2 (6-22); Bilirubin Total 0.6 mg/dL (0.2-1.3); Blood Urea Nitrogen 11 mg/dL (9-20); Calcium 8.8 mg/dL (8.4-10.2); Carbon Dioxide 28 mmol/L (22-32); Chloride 98 mmol/L (98-107); Estimated Glomerular Filt Rate > 60.0 mL/min (>60); Globulin 3.8 g/dL (1.7-4.1); Glucose 120 mg/dL (70-100); HEMOLYSIS < 15 (0-50); Potassium 3.6 mmol/L (3.4-5.1); Sodium 135 mmol/L (137-145); Total Protein 7.6 g/dL (6.3-8.2)
--- NOTE | 2018-03-17 08:31 | PM.PN.1 ---
Subjective Interval history: Per H&P 03/15/2018 Patient is a 47-year-old male with history of type 2 diabetes with neuropathy, lower extremity ulcerations, hypertension presented to emergency department due to worsening ulcerations of left ft. He states that about a week ago, this past weekend, he noticed ulcers opening up on the left distal foot. This was accompanied by drainage, redness, fever and chills. He had some antibiotics from a prior prescription which he took 3 doses and fevers and chills seem to subside. However appearance of ulcers became worse and he presented to the ER on 03/14/2018 for evaluation. He was discharged on doxycycline with referral to Wound Care Clinic where he was seen earlier 03/15/2017. At Wound Care they debrided ulcers but were concerned with appearance and referred him back to the ER where upon he was directed to admission. During ED visit left foot x-ray suggested erosive changes involving the head of the 5th metatarsal suspicious for osteomyelitis. His WBC is normal without any left shift, ESR 19, CRP 3.1. 03/16/2017 There is no significant discomfort of the foot. MRI of the foot was obtained and reavealed at the level of the 5th proximal phalanx and 5th metatarsophalangeal joint with underlying osteomyelitis involving the 5th metatarsal and 5th proximal phalanx.No discrete abscess collection identified. He was taken to the OR by Dr. Sally Howell . IRRIGATION,DEBRIDMENT,BONE BIOPSY, LEFT FOOT ULCERATION. 01/14/2019 Patient ambulatory in his room without any significant discomfort. He was seen by Dr. Howell. Decision tomorrow will be made whether he needs to go back to the OR depending on how things look with his wound check. Ultimately the goal will be to transition from wet to dry dressings daily to likely wound VAC Exam Vital Signs (past 8 hours): - 03/17/18 04:00 03/17/18 07:49 Temperature 98.3 F Pulse Rate 80 Respiratory Rate 16 Blood Pressure 141/85 H Pulse Oximetry 95 96 Oxygen Delivery Method Room Air Oxygen Flow Rate 0 Narrative Exam Narrative: GENERAL: Alert very pleasant and cooperative male HEAD: Atraumatic. Normocephalic. EYES: Pupils equal, round and reactive. Extraocular motions intact. No scleral icterus. No injection or drainage. OROPHARYNX: moist mucosa NECK: Trachea midline. No JVD or lymphadenopathy. CARDIOVASCULAR: Regular rate and rhythm without murmurs, gallops, or rubs. RESPIRATORY: Clear to auscultation bilaterally. GASTROINTESTINAL: Abdomen obese, nondistended, soft, non-tender. No hepato-splenomegaly, or palpable masses. EXTREMITIES: No pretibial edema. LLE: Ft is Evert wrapped. Dorsalis pedis pulses easily palpable 2+ bilaterally. NEUROLOGICAL: Alert, well oriented, speech is intact, normal bilateral upper and lower extremity strength Objective Labs Result Diagrams: 03/17/18 05:12 03/17/18 05:12 Labs: Laboratory Results - last 24 hr 03/16/18 03/17/18 03/17/18 15:50 05:12 05:12 WBC 9.0 RBC 5.22 Hgb 14.6 Hct 43.4 MCV 83.1 MCH 28.1 MCHC 33.8 RDW 13.1 Plt Count 309 Neut % (Auto) 63.3 Lymph % (Auto) 23.8 L [place] % (Auto) 9.7 Eos % (Auto) 2.6 Baso % (Auto) 0.6 Neut # (Auto) 5700 Lymph # (Auto) 2200 [place] # (Auto) 900 Eos # (Auto) 200 Baso # (Auto) 100 Sodium 135 L Potassium 3.6 Chloride 98 Carbon Dioxide 28 BUN 11 Creatinine 0.90 Estimated GFR > 60.0 BUN/Creatinine Ratio 12.2 Glucose 120 H D Calcium 8.8 Total Bilirubin 0.6 AST 31 ALT 46 Alkaline Phosphatase 53 Total Protein 7.6 Albumin 3.8 Globulin 3.8 Albumin/Globulin Ratio 1.0 Vancomycin Trough 25.8 H*
--- NOTE | 2018-03-17 08:52 | P.PN_ITS ---
Subjective Date Patient Seen: 03/17/18 Time Patient Seen: 08:50 Interval history: Postop day 1 left foot irrigation debridement bone biopsy and partial metatarsal amputation for osteomyelitis diabetic full also. Patient's pain is controlled resting in bed. Remains on scheduled IV antibiotics. Exam Vital Signs (past 8 hours): - 03/17/18 04:00 03/17/18 07:49 Temperature 98.3 F Pulse Rate 80 Respiratory Rate 16 Blood Pressure 141/85 H Pulse Oximetry 95 96 Oxygen Delivery Method Room Air Oxygen Flow Rate 0 Narrative Exam Narrative: General exam: Alert and oriented male in no acute distress lying in bed Respiratory exam: Nonlabored on room CV exam: Regular rate and rhythm Musculoskeletal examination: Left lower extremity with a dressing intact. Toes are well perfused and pink. Small toe appears well perfused and pink. Sensation grossly intact to light touch. Calf is soft Objective Labs Result Diagrams: 03/17/18 05:12 03/17/18 05:12 Labs: Laboratory Results - last 24 hr 03/16/18 03/17/18 03/17/18 15:50 05:12 05:12 WBC 9.0 RBC 5.22 Hgb 14.6 Hct 43.4 MCV 83.1 MCH 28.1 MCHC 33.8 RDW 13.1 Plt Count 309 Neut % (Auto) 63.3 Lymph % (Auto) 23.8 L [place] % (Auto) 9.7 Eos % (Auto) 2.6 Baso % (Auto) 0.6 Neut # (Auto) 5700 Lymph # (Auto) 2200 [place] # (Auto) 900 Eos # (Auto) 200 Baso # (Auto) 100 Sodium 135 L Potassium 3.6 Chloride 98 Carbon Dioxide 28 BUN 11 Creatinine 0.90 Estimated GFR > 60.0 BUN/Creatinine Ratio 12.2 Glucose 120 H D Calcium 8.8 Total Bilirubin 0.6 AST 31 ALT 46 Alkaline Phosphatase 53 Total Protein 7.6 Albumin 3.8 Globulin 3.8 Albumin/Globulin Ratio 1.0 Vancomycin Trough 25.8 H* Assessment & Plan Post-op Postoperative Procedures Operation Date: 03/16/18 12:00 Actual Procedures Side Surgeon p IRRIGATION,DEBRIDMENT,BONE BIOPSY, LEFT FOOT ULCERATION Sally Aaron MD patient is status post irrigation debridement biopsy and partial metatarsal resection for osteomyelitis and diabetic foot ulcer. His cultures have not come back yet as these may or may not grow due to the patient's previous history of antibiotics we will continue to wait for the culture update and he will continue to receive empiric antibiotics. He will have a dressing change later today or tomorrow at this point we will decide whether not he needs to go back to the operating room for an additional debridement or continue with local wound care. Patient will be NPO at midnight before this wound check. If no further debridement is necessary hopefully the patient will be able to be transitioned from wet to dry dressings daily to likely negative pressure wound therapy in coordination with the wound care clinic. Quality VTE Deep Vein Thrombosis/Pulmonary Embolism Present on Admission: No
[2018-03-17] MEDS: INSULIN ASPART 100 UNIT/ML INSULN PEN SUBCUT ×3 (09:09→20:49)
[2018-03-17] MEDS: CHLORTHALIDONE 25 MG TABLET PO (09:10)
[2018-03-17] MEDS: AMLODIPINE 5 MG TABLET 10 MG PO (09:10)
[2018-03-17] MEDS: glipiZIDE 5 MG TABLET 10 MG PO ×2 (09:10→20:24)
[2018-03-17] MEDS: LISINOPRIL 20 MG TABLET 40 MG PO (09:10)
[2018-03-17] MEDS: METFORMIN HCL 500 MG TABLET 1000 MG PO ×2 (09:10→20:25)
[2018-03-17] MEDS: SODIUM CHLORIDE 0.9% FLUSH 10 ML IV ×2 (09:12→20:25)
[2018-03-17] MEDS: CEFTRIAXONE 2 GM/50 ML FROZ.PIGGY IV (10:38)
[2018-03-17] MEDS: VANCOMYCIN 1,500 MG in SODIUM CHLORIDE 0.9% 500 ML 250 ML IV ×2 (10:39→20:24)
--- NOTE | 2018-03-17 10:43 | PC.NURSE ---
Day shift: Started the IV vanco before the other IV antibiotic. Realized that this 50ml bag would be late as the Vanco contain 500ml. Switched tthem and will finish infusing VAnco when this 50ml bag is empty. Call light in reach.
[2018-03-17] MEDS: CARVEDILOL 25 MG TABLET PO (11:48)
[2018-03-18] VITALS (9 sets, daily range): BP systolic 130–150; BP diastolic 81–94; PULSE 70–79; RESP 16–20; TEMP 36.7–36.9; O2SAT 96–98
--- NOTE | 2018-03-18 02:42 | PC.NURSE ---
Dressing to left foot/toe, CDI. Was changed by surgeon 03/17.
--- NOTE | 2018-03-18 06:41 | PC.NURSE ---
Patient up independently to bathroom. Denied pain this shift. CDI. Voided 650 ml. Bed alarm on despite patient objections for safety. He goes independently, but the alarm allows us to know he is up.
--- NOTE | 2018-03-18 07:49 | PM.PNPO.1 ---
Subjective Date Patient Seen: 03/18/18 Interval history: Patient seen bedside s/p p IRRIGATION,DEBRIDMENT,BONE BIOPSY, LEFT FOOT ULCERATION with Dr. Aaron on 03/16/18. Patient is doing well, pain is controlled except during dressing changes. He has not yet been seen by wound care. Per Dr. Aaron, no more surgery is necessary. Patient denies CP, SOB, numbness/tingling, calf pain. Exam Vital Signs (past 8 hours): - 03/18/18 00:25 03/18/18 04:00 03/18/18 07:36 Temperature 98.1 F Pulse Rate 70 Respiratory Rate 16 Blood Pressure 130/94 H Pulse Oximetry 97 96 96 Oxygen Delivery Method Room Air Oxygen Flow Rate 0 Narrative Exam Narrative: WDWN NAD A&Ox3. Dressing on left foot clean, dry, and intact. Patient is able to move toes and has full sensation to light touch. Cap refill <2 sec. Calf is soft and compressible. Objective Labs Result Diagrams: 03/17/18 05:12 03/17/18 05:12 Assessment & Plan Post-op Postoperative Procedures Operation Date: 03/16/18 12:00 Actual Procedures Side Surgeon p IRRIGATION,DEBRIDMENT,BONE BIOPSY, LEFT FOOT ULCERATION Sally Aaron MD 1. s/p above procedure POD #2-Wet to dry dressing changes daily. Waiting on wound care consult and final antibiotic plan prior to discharge. Likely d/c with wet-to-dry with conversion to wound vac with wound care. Follow up in office in 2 weeks' time. Quality VTE Deep Vein Thrombosis/Pulmonary Embolism Present on Admission: No
--- NOTE | 2018-03-18 08:02 | CM.DPC ---
Addendum entered by CHUCHO Marte 03/18/18 14:16: ADD: SW met bedside with pt and explained role and he confirmed that he still lives here in [place] with his and kids and still works at [employer] and plans to take a little time off work at discharge prior to returning to work. SW discussed d/c planning and pt states that he does not anticipate issues with discharging home with his family. SW discussed possible need of IV-Abx at discharge pending consult and cultures and final Abx and dosing frequency to be determined. But SW discussed potential options of outpt infusion, home infusion, SNF for needs at d/c pending pt's insurance coverage. Pt states that his preference would be home with outpt infusion since he lives very close to the hospital and currently pt seems to be on Rocephin Q24. Plan: SW to follow closely for Wound Care Consult later today pending MD availability and final Abx dosing and frequency to confirm if pt is safe for d/c home with family and outpt infusion if IV-Abx still needed. CHUCHO Marte Original Note: DCP Cont: Per Surgeon Dr. Aaron, pt tolerated dressing changes well yesterday and there was no need for further surgery at this moment. Waiting for Wound Care Consult hopefully today to determine wound dressing needs for discharge. SW called [facility] and left a message alerting them to the Wound Consult Order for hopeful Consult today with the pt. Plan: SW to follow closely after Wound Consult to determine d/c needs and follow to r/o likely need for IV-Abx at discharge. CHUCHO Marte
[2018-03-18 08:16] LABS: Vancomycin Trough 14.9 ug/mL (10-20)
[2018-03-18] MEDS: AMLODIPINE 5 MG TABLET 10 MG PO (09:04)
[2018-03-18] MEDS: VANCOMYCIN TROUGH 1 REQUEST MISC (09:04)
[2018-03-18] MEDS: CEFTRIAXONE 2 GM/50 ML FROZ.PIGGY IV (09:05)
[2018-03-18] MEDS: METFORMIN HCL 500 MG TABLET 1000 MG PO ×2 (09:08→21:46)
[2018-03-18] MEDS: CHLORTHALIDONE 25 MG TABLET PO (09:08)
[2018-03-18] MEDS: LISINOPRIL 20 MG TABLET 40 MG PO (09:08)
[2018-03-18] MEDS: glipiZIDE 5 MG TABLET 10 MG PO ×2 (09:09→21:46)
[2018-03-18] MEDS: SODIUM CHLORIDE 0.9% FLUSH 10 ML IV ×3 (09:10→21:52)
[2018-03-18] MEDS: VANCOMYCIN 1,500 MG in SODIUM CHLORIDE 0.9% 500 ML 250 ML IV (09:51)
[2018-03-18] MEDS: CARVEDILOL 25 MG TABLET PO (11:51)
[2018-03-18] MEDS: INSULIN ASPART 100 UNIT/ML INSULN PEN SUBCUT ×2 (11:51→21:46)
--- NOTE | 2018-03-18 16:52 | PM.PN.1 ---
Subjective Date Patient Seen: 03/18/18 Interval history: Patient seen and examined chart reviewed. Patient reports some nausea and emesis. This has been present since his surgery. No shortness of breath or chest pain id he has no pain over the foot ulcer. Patient is still awaiting wound care consultation. Anticipation wound VAC to be placed prior to discharge home. Exam Vital Signs (past 8 hours): - 03/18/18 11:35 03/18/18 16:00 Temperature 98.4 F 98.4 F Pulse Rate 77 72 Respiratory Rate 20 20 Blood Pressure 142/87 H 131/83 Pulse Oximetry 97 97 Oxygen Delivery Method Room Air Oxygen Flow Rate 0 Narrative Exam Narrative: Pleasant gentleman resting comfortably with mild nausea Lungs: Clear to auscultation Cardiac exam: Regular rate rhythm normal S1-S2 Abdomen: Soft nontender nondistended Extremities: Left foot with dressing in place Objective Labs Result Diagrams: 03/17/18 05:12 03/17/18 05:12 Labs: Laboratory Results - last 24 hr 03/18/18 07:30 Vancomycin Trough 14.9 Assessment & Plan Assessment Narrative: Postop day 1 I and D of the left foot ulcer Left foot diabetic ulcer with cellulitis, present on admission, acute Osteomyelitis, acute, present on admission Type 2 diabetes, chronic, present on admission Hypertension, chronic Plan Narrative: Await wound care consultation. Will continue IV antibiotics with anticipation of home oral antibiotics. Patient will continue treatment and dressing changes with the wound VAC per the wound care consultation. Will continue insulin for diabetic management. Anticipate discharge home tomorrow. Quality VTE Deep Vein Thrombosis/Pulmonary Embolism Present on Admission: No
[2018-03-18] MEDS: ONDANSETRON 4 MG/2 ML INJ IV (21:51)
[2018-03-19] VITALS (8 sets, daily range): BP systolic 114–147; BP diastolic 69–92; PULSE 70–94; RESP 16–19; TEMP 36.3–36.7; O2SAT 95–98
--- NOTE | 2018-03-19 06:45 | PM.CN ---
History of Present Illness Date Patient Seen: 03/18/18 Time Patient Seen: 17:00 Chief complaint: INFECTION ON LEFT FOOT/WOUNDS ON RIGHT LEG Reason for consult: Recommendations regarding management of left postoperative foot wound. Requesting provider: Sally Aaron Narrative: Wound #1 Location: Left foot, 5th metatarsal head partial amputation site Duration: 03/07/18 Severity: [place] 3 Context: Diabetes 47-year-old non-adherent male with poorly controlled DM II with a L DFU who is postop day 2 left foot irrigation, debridement, bone biopsy, and partial metatarsal amputation for osteomyelitis. He had non-compliant with updates for diabetic shoes/inserts and developed a left lateral foot wound. PMH also includes poorly-controlled hypertension (h/o TIA during episode of malignant hypertension), chronic venous hypertension, and hyperlipidemia. [facility] Medical History Congestive heart failure (Acute) Diabetes (Acute) Diabetes mellitus (Acute) Surgical History No pertinent past surgical history (Acute) Social History household members: spouse and children Smoking Status: Former smoker alcohol intake: never Social History household members: spouse and children Smoking Status: Former smoker alcohol intake: never Meds Home Medications Medication Instructions Recorded Confirmed Type amlodipine 10 mg PO DAILY 03/14/18 03/15/18 History carvedilol 25 mg PO 1300 03/14/18 03/15/18 History doxycycline hyclate 100 mg PO BID 7 Days #14 tab 03/14/18 03/15/18 Rx lisinopril 40 mg PO DAILY 03/14/18 03/15/18 History metformin 1,000 mg PO BID 03/14/18 03/15/18 History chlorthalidone 25 mg PO DAILY 03/15/18 03/15/18 History glipizide 10 mg PO BID 03/15/18 03/15/18 History Allergies Allergy/AdvReac Type Severity Reaction Status Date / Time No Known Drug Allergies Allergy Verified 03/14/18 09:41 Review of Systems Constitutional Constitutional: Denies anorexia, Denies chills, Denies excessive sweating, Denies fatigue, Denies fever(s), Denies malaise, Denies poor appetite and Denies weight loss Cardiovascular Cardiovascular: Reports foot swelling, Denies leg pain with activity and Reports leg swelling Musculoskeletal Musculoskeletal: Denies abnormal gait and Denies deformity Integumentary/Breasts Skin/Breast: Reports as per HPI Neurologic Neurologic: Denies abnormal gait Endocrine Endocrine: Denies excessive sweating and Denies fatigue Exam Vital Signs (past 8 hours): - 03/18/18 23:25 03/19/18 03:00 Temperature 98.1 F 97.9 F Pulse Rate 79 76 Respiratory Rate 17 19 Blood Pressure 133/81 136/88 Pulse Oximetry 96 96 Oxygen Delivery Method Room Air Oxygen Flow Rate 0 Const General: cooperative, comfortable and well developed Nutritional Appearance: well nourished and obese Orientation: alert, awake and oriented x3 HENMT Ears: hearing grossly normal bilaterally Eyes Sclera: sclerae normal Resp Effort & Inspection: normal respiratory effort Cardio Rate: regular rate Rhythm: regular rhythm Pulses: posterior tibial pulses present and dorsalis pedis present Skin Other: Wound #1: encounter measurements are 3.8cm length x 2.5cm width x 2.1 cm depth. Viable subcutaneous tissue, muscle and tendon noted in the wound bed. No tunneling, sinus tract, or undermining noted. Large sersanguineous drainage noted. No odor. Periwound skin moisture is normal. Temperature exhibits mildly increased warmth to palpation. Periwound skin exhibits less than 1 cm of erythema, mostly noted medial to the wound edge. Minimal eschar noted noted along the medial and distal wound border. No significant cyanosis noted. Two sutures are intact proximal to the wound and edges are well coapted. Neuro General: decrease sensation to monofilament Gait: normal gait Motor: muscle tone normal throughout Extrem Right lower extremity: normal capillary refill and edema Left lower extremity: normal capillary refill and edema Psych Appearance: grossly normal Mental Status: mental status grossly normal Speech and Movement: speech and movement normal Mood: congruent mood Affect: normal affect Attitude: cooperative Thought Process: normal Thought Content: normal Judgment: judgment good Objective Labs Result Diagrams: 03/17/18 05:12 03/17/18 05:12 Labs: Laboratory Results - last 24 hr 03/18/18 07:30 Vancomycin Trough 14.9 Previous lab testing includes: 2/8/19: A1c 10.9, CRP 3.1, ESR 19, WBC normal Previous imaging includes: 03/15/18: L foot MRI demonstrates osteomyelitis involving the 5th metatarsal and 5th proximal phalanx. Assessment & Plan Assessment Narrative: 47-year-old non-adherent male with poorly controlled DM II with a L DFU who is postop day 2 left foot irrigation, debridement, bone biopsy, and partial metatarsal amputation for osteomyelitis. Current treatment with IV vancomycin pending results of operative cultures. Current plan is for 6 weeks of antibiotic treatment for osteomyelitis. Examination and non-invasive bedside testing including JUDITH, PVR waveforms, and audio handheld Doppler suggest adequate potential for spontaneous wound healing. The following co-factors that can result in delayed wound healing are identified: Non-adherence. DM II in poor control. Poor offloading. Infection (including osteomyelitis). Goal: Closure of the wound/ulcer. Treat infection/prevent wound deterioration. Preserve function and activity. Plan Narrative: Discussed patient with Dr. Aaron of orthopedic surgery on morning of 03/18/18 in anticipation of upcoming discharge. Vacuum assisted closure is medically necessary and all other applicable treatments have been considered and ruled out due to the need for accelerated granulation tissue, presence of comorbidities (including obesity and diabetes), and high risk of infection. If vacuum assisted closure is not used, the patient will be at increased risk for worsening infection including, but not limited to, cellulitis, abscess, osteomyelitis, or sepsis. The patient has no contraindications to NPWT use. Conventional wound management will be continued along with NPWT. If able to obtain insurance authorization in time, would like to start SNaP Therapy System prior to discharge and see patient in the outpatient wound care clinic in 2 days. If unable to obtain insurance authorization in time, will arrange outpatient clinic appointment for placement tomorrow, 03/20/18, with subsequent follow-up on 03/22/18 for re-assessment. For now, will continue dressings per Dr. Aaron (daily wet-to-dry). Address co-factors that may affect healing: Pressure redistribution/offloading to optimize healing. Continue recommendations as per Dr. Aaron. Recommend follow-up with PCP to address poor diabetic control.
--- NOTE | 2018-03-19 07:23 | PM.PNPO.1 ---
Subjective Date Patient Seen: 03/19/18 Time Patient Seen: 07:42 Interval history: Patient seen bedside s/p I&D and bone biopsy of a left foot ulcer POD #3. Patient's doing well, his pain is controlled except with dressing changes which he describes as extremely painful. He denies CP, SOB, numbness/tingling, N/V. Exam Vital Signs (past 8 hours): - 03/18/18 23:25 03/19/18 03:00 Temperature 98.1 F 97.9 F Pulse Rate 79 76 Respiratory Rate 17 19 Blood Pressure 133/81 136/88 Pulse Oximetry 96 96 Oxygen Delivery Method Room Air Oxygen Flow Rate 0 Narrative Exam Narrative: WDWN NAD A&Ox3. Dressing on left foot is CDI, no signs of drainage. He has full range of motion in his toes, cap refill <2sec, and full sensation to light touch. Calves are soft and compressible. Objective Labs Result Diagrams: 03/17/18 05:12 03/17/18 05:12 Labs: Laboratory Results - last 24 hr 03/18/18 07:30 Vancomycin Trough 14.9 Assessment & Plan Post-op Postoperative Procedures Operation Date: 03/16/18 12:00 Actual Procedures Side Surgeon p IRRIGATION,DEBRIDMENT,BONE BIOPSY, LEFT FOOT ULCERATION Sally Aaron MD 1. s/p above procedure POD #3-wound consult has seen the patient and has procured a wound vac for the patient. This will be placed on him and he will follow up with the clinic. In addition, we are awaiting final recommendations from medicine regarding IV antibiotics. He will be ready for discharge once these become available. Follow up with Dr. Aaron at [facility] in 10-14 days. Quality VTE Deep Vein Thrombosis/Pulmonary Embolism Present on Admission: No
[2018-03-19] MEDS: glipiZIDE 5 MG TABLET 10 MG PO ×2 (09:05→22:17)
[2018-03-19] MEDS: AMLODIPINE 5 MG TABLET 10 MG PO (09:05)
[2018-03-19] MEDS: LISINOPRIL 20 MG TABLET 40 MG PO (09:05)
[2018-03-19] MEDS: CEFTRIAXONE 2 GM/50 ML FROZ.PIGGY IV (09:05)
[2018-03-19] MEDS: METFORMIN HCL 500 MG TABLET 1000 MG PO (09:06)
[2018-03-19] MEDS: SODIUM CHLORIDE 0.9% FLUSH 10 ML IV ×2 (09:06→22:18)
[2018-03-19] MEDS: CHLORTHALIDONE 25 MG TABLET PO (09:06)
--- NOTE | 2018-03-19 11:12 | DI.RAD.S_ITS ---
PROCEDURE: XR CHEST FOR PICC 1V INDICATIONS: line placement COMPARISON: [facility], CR, XR CHEST 1V, 03/15/2018, 11:12. FINDINGS: There is a left PICC, the tip of which is projected over the cavoatrial junction. Lungs are clear. No pleural effusion or pneumothorax. Mediastinum is normal size. No bony abnormalities. IMPRESSION: Left PICC projected over the cavoatrial junction. Dictated by: Yaneli So M.D. on 03/19/2018 at 11:32 Approved by: Yaneli So M.D. on 03/19/2018 at 11:32
--- NOTE | 2018-03-19 11:45 | P.PN_ITS ---
Subjective Date Patient Seen: 03/19/18 Time Patient Seen: 07:42 Interval history: Patient seen bedside s/p I&D and bone biopsy of a left foot ulcer POD #3. Patient's doing well, his pain is controlled except with dressing changes which he describes as extremely painful. He denies CP, SOB, numbness/tingling, N/V. Exam Vital Signs (past 8 hours): - 03/18/18 23:25 03/19/18 03:00 Temperature 98.1 F 97.9 F Pulse Rate 79 76 Respiratory Rate 17 19 Blood Pressure 133/81 136/88 Pulse Oximetry 96 96 Oxygen Delivery Method Room Air Oxygen Flow Rate 0 Narrative Exam Narrative: WDWN NAD A&Ox3. Dressing on left foot is CDI, no signs of drainage. He has full range of motion in his toes, cap refill <2sec, and full sensation to light touch. Calves are soft and compressible. Objective Labs Result Diagrams: 03/17/18 05:12 03/17/18 05:12 Labs: Laboratory Results - last 24 hr 03/18/18 07:30 Vancomycin Trough 14.9 Assessment & Plan Post-op Postoperative Procedures Operation Date: 03/16/18 12:00 Actual Procedures Side Surgeon p IRRIGATION,DEBRIDMENT,BONE BIOPSY, LEFT FOOT ULCERATION Sally Aaron MD 1. s/p above procedure POD #3-wound consult has seen the patient and has p rocured a wound vac for the patient. This will be placed on him and he will follow up with the clinic. In addition, we are awaiting final recommendations from medicine regarding IV antibiotics. He will be ready for discharge once these become available. Follow up with Dr. Aaron at [facility] in 10-14 days. Quality VTE Deep Vein Thrombosis/Pulmonary Embolism Present on Admission: No
[2018-03-19] MEDS: CARVEDILOL 25 MG TABLET PO (13:02)
[2018-03-19] MEDS: INSULIN ASPART 100 UNIT/ML INSULN PEN SUBCUT ×2 (13:03→17:50)
--- NOTE | 2018-03-19 14:14 | PC.NURSE ---
Wound Ostomy Nurse Consult with Dr. Deanna Huerta and I place a SNAP NWPT on Mr. Mari's Left foot surgical site. The wound measures 3.1cm x 2.4 cm x 2.2 cm. There is beefy red granulation tissue. I cut the foam to fit into the wound and used two pieces. I place a small piece in the tunnel that exits the left lateral side of his foot. I used extra pieces of hydrocolloids between his fifth and fourth toe to help with creating a seal. The SNAP is 124mmHg and I place a 60cc Canister. I used the SNAP collar to hold the canister in place. I gave Mr. Mari instructions on how to care for the SNAP although he seems like he needs teaching reinforcement. We have an appointment to see him at the [facility] on March 21, 2018 at 11:00. I discussed this with his nurse Alyssa and with Care Management.
--- NOTE | 2018-03-19 17:24 | PM.PN.1 ---
Subjective Date Patient Seen: 03/19/18 Interval history: Patient reports persistent nausea. His appetite has been poor and he has been unable to really eat any food. He has no specific complaints of pain no shortness of breath just nausea but no emesis. Exam Vital Signs (past 8 hours): - 03/19/18 12:00 03/19/18 17:03 Temperature 97.4 F L 97.9 F Pulse Rate 76 73 Respiratory Rate 16 18 Blood Pressure 133/88 131/84 Pulse Oximetry 96 97 Oxygen Delivery Method Room Air Oxygen Flow Rate 0 Narrative Exam Narrative: Ill appearing gentleman Lungs: Clear to auscultation Cardiac exam: Regular rate rhythm normal S1 S Abdomen: Soft nontender nondistended Lower extremities left lower extremity with snap/VAC in Objective Labs Result Diagrams: 03/17/18 05:12 03/17/18 05:12 Assessment & Plan Assessment Narrative: Postop day 3. Status post I&D and bone biopsy 2. Osteomyelitis, present on admission 3. The diabetic foot ulcer, cellulitis, present on admission Type 2 diabetes, chronic Hypertension, chronic Poor appetite, acute Plan Narrative: Plan will discontinue Glucophage as this may be contributing to nausea. Will continue to cover his blood sugars with sliding scale. Will continue IV antibiotics. Anticipate discharge tomorrow for outpatient antibiotics and continued wound care. Patient will follow up as an outpatient in the [facility]ound Care Clinic. Quality VTE Deep Vein Thrombosis/Pulmonary Embolism Present on Admission: No
[2018-03-19] MEDS: ONDANSETRON 4 MG/2 ML INJ IV (18:04)
[2018-03-19] MEDS: MEGESTROL 20 MG TABLET 40 MG PO (22:18)
[2018-03-20] VITALS (9 sets, daily range): BP systolic 106–138; BP diastolic 58–87; PULSE 67–88; RESP 16–18; TEMP 36.4–36.9; O2SAT 97–100
--- NOTE | 2018-03-20 00:33 | PC.NURSE ---
Patient is alert and oriented with flat affect. Breath sounds CTA with RA sat of 99%. HRR. States he has poor appetite and becomes nauseated whenever eats something. Denies nausea at this time but states he just had emesis prior to shift change. BT present and abdomen is soft. Denies dysuria, frequency or urgency. Independent with mobility. Gets up independently but does use walker. Wound vac intact to left lateral foot. Dressings to right LE are CDI x 2. Denies pain. Fall risk score is moderate; appropriate and steady on feet.
[2018-03-20] MEDS: AMLODIPINE 5 MG TABLET 10 MG PO (08:52)
[2018-03-20] MEDS: glipiZIDE 5 MG TABLET 10 MG PO ×2 (08:53→21:25)
[2018-03-20] MEDS: CHLORTHALIDONE 25 MG TABLET PO (08:53)
[2018-03-20] MEDS: LISINOPRIL 20 MG TABLET 40 MG PO (08:53)
[2018-03-20] MEDS: MEGESTROL 20 MG TABLET 40 MG PO (08:54)
[2018-03-20] MEDS: SODIUM CHLORIDE 0.9% FLUSH 10 ML IV ×2 (09:00→21:26)
[2018-03-20] MEDS: CEFTRIAXONE 2 GM/50 ML FROZ.PIGGY IV (09:04)
--- NOTE | 2018-03-20 10:55 | P.PN_ITS ---
Subjective Date Patient Seen: 03/20/18 Interval history: Patient seen bedside s/p I&D and bone biopsy left foot POD #4. Patient is doing well, awaiting sensitivities for outpatient abx treatment. Wound VAC has been placed by wound care and patient has a follow-up appointment for . He states that the nausea was having yesterday has improved and he was able to eat most of his meal today. Exam Vital Signs (past 8 hours): - 03/20/18 05:56 03/20/18 07:35 Temperature 97.7 F 97.6 F Pulse Rate 68 67 Respiratory Rate 16 18 Blood Pressure 136/87 110/72 Pulse Oximetry 97 97 Oxygen Delivery Method Room Air Oxygen Flow Rate 0 Narrative Exam Narrative: Well-developed well-nourished no acute distress alert oriented x3. Wound VAC dressing on left foot is clean dry and intact. He has full range of motion of the toes and sensation to touch. He is neurovascularly intact. Objective Labs Result Diagrams: 03/17/18 05:12 03/17/18 05:12 Assessment & Plan Post-op Postoperative Procedures Operation Date: 03/16/18 12:00 Actual Procedures Side Surgeon p IRRIGATION,DEBRIDMENT,BONE BIOPSY, LEFT FOOT ULCERATION Sally Aaron MD 1. Status post the above procedure postop day 4. Patient is doing well, waiting for final antibiotic recommendations for outpatient treatment. Follow up with Dr. Aaron at [facility] in 1 weeks time. Dispo-based on medicine's recommendation. Quality VTE Deep Vein Thrombosis/Pulmonary Embolism Present on Admission: No
[2018-03-20] MEDS: CARVEDILOL 25 MG TABLET PO (13:34)
[2018-03-20] MEDS: INSULIN ASPART 100 UNIT/ML INSULN PEN SUBCUT ×2 (13:34→21:30)
--- NOTE | 2018-03-20 15:31 | CM.DPC ---
DCP/continued: Reviewed chart. CAR CLERK PULLMAN working with /Dr. Jang re: discharge plan. Patient anticipated to be medically stable to discharge home on 03-21-18. Patient requiring IV abx q24hrs and wound care for wound vac. CAR CLERK PULLMAN spoke with Dilma at wound [facility] this afternoon. Patient will be seen in AM tomorrow prior to discharge. Outpatient appointment scheduled for Sunday03-25-18 at 9:00AM. Dr. Jang anticipates IV abx for approximately 4-6wks. Dr. Berry at [facility] agreed verbally to follow outpatient IV abx. Dr. Jang reports that she will call him prior to discharge to provide him with IV abx plan. In addition, to the above IV abx will need to be arranged at outpatient infusion clinic. IV abx order will need to be obtained to provide clinic with dosing, duration, and medication. Dr. Jang plans to write and confirm with Dr. Berry in AM. P: Home when medically stable and above arrangements confirmed and finalized. CHUCHO Steen
--- NOTE | 2018-03-20 18:15 | PM.PN.1 ---
Subjective Date Patient Seen: 03/20/18 Interval history: Patient feels significantly improved today. His appetite has picked up. He has no further nausea. He has no complaints of pain. He has no shortness of breath. Patient feels better and is ready for discharge. Exam Vital Signs (past 8 hours): - 03/20/18 11:06 03/20/18 15:25 Temperature 97.8 F 98.3 F Pulse Rate 88 80 Respiratory Rate 18 18 Blood Pressure 138/87 130/71 Pulse Oximetry 100 98 Oxygen Delivery Method Room Air Oxygen Flow Rate 0 Narrative Exam Narrative: Pleasant male resting comfortably eating dinner Lungs: Clear to auscultation Cardiac exam: Regular rate rhythm normal S1-S2 with a 2/6 systolic ejection murmur Abdomen: Soft nontender nondistended Extremities: Left leg with wound VAC in place Objective Labs Result Diagrams: 03/17/18 05:12 03/17/18 05:12 Assessment & Plan Assessment & Plan narrative: 1. 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 Diabetic foot ulcer with cellulitis 3. Type 2 diabetes 4. Hypertension 5. Hyperlipidemia Plan the patient will be followed by the wound care center. Will modify his antibiotic regiment to the ertapenem 1 g daily for 4 weeks and then switch to Augmentin for the remaining 8 weeks will recommend outpatient PT OT as well patient will be followed by the wound care clinic. Quality VTE Deep Vein Thrombosis/Pulmonary Embolism Present on Admission: No
--- NOTE | 2018-03-20 22:09 | PC.NURSE ---
Lori shift note: Patient refused dressing changes to RLE. Dressing change instructions acknowledged by this RN, however patient refuses. States he will go to wound care center and change it there, does not want it to be changed at this time. LLE SNAP dressing area, clear without any drainage, secured to left calf.
--- NOTE | 2018-03-20 22:30 | PC.NURSE ---
Diarrhea. Patient states I have been having diarrhea since Sunday. Patient states it is a little bit better today. Patient states I have only gone small amounts of green colored diarrhea and it has no obvious smell. Patient states I feel the diarrhea is related to the antibiotics that I am getting. Primary nurse Dalia notified about the patient having diarrhea. Continue to monitor. Patients bed is in the low position and wheels locked. The call traore is within reach. Patient encouraged to call if any assistance needed.
--- NOTE | 2018-03-21 01:00 | PC.NURSE ---
Patient is alert and oriented. Breath sounds CTA with RA sat of 98%. HRR. Denies nausea and states appetite improved on Megace. BT present and abdomen is soft. Reports 2 loose/liquid stools daily but attributes them to antibiotics. Discussed c-diff and importance of contacting MD if frequency/amount of stools increases. Denies dysuria, frequency or urgency. Is independent with mobility. Scattered spots of numbness bilateral LE; chronic and unchanged. Venous stasis discoloration bilateral LE and skin is scaly. Allevyn dressings to right LE are CDI. Snap vack intact to left lateral foot. CMS (except for chronic numbness) is intact. Fall risk score is moderate. Denies pain.
[2018-03-21 03:26] VITALS: BP 133/88; PULSE 71; RESP 17; TEMP 36.7; O2SAT 99
[2018-03-21 08:17] VITALS: O2SAT 97
[2018-03-21 08:41] VITALS: BP 122/83; PULSE 73; RESP 16; TEMP 36.7; O2SAT 99
--- NOTE | 2018-03-21 09:22 | PC.NURSE ---
Wound Ostomy Nurse Note Changed SNAP dressing today. Curtis will be discharged today after he receives his IV antibiotics. Curtis states he is feeling much better than he did when I saw him on March 19. He is tolerating a regular diet. He states that he is still having some pain in his foot. I removed the SNAP dressing. The wound bed is beefy red with some granulation tissue. There was maceration around the wound especially at the Lateral aspect of the foot where there is a tunnel that opens from the wound to the lateral foot. I used a SNAP ring to cover around all the macerated areas on his foot. I filled the wound with blue foam cut to fit and placed the SNAP dressing over the foam. I then used hydrocolloids cut to window pane around the dressing and in between his fifth and fourth toe. The wound measures 1.3 x 2.1 x 1.4 cm. The wound bed has beefy red granulation tissue. There was about 15cc of serosanguenous drainage in the canister. The SNAP is at 125mmHg. Curtis tolerated the procedure well. I reinforced instruction on how to make sure SNAP has suction. Instructed Curtis to remove SNAP if it looses suction over the weekend and to use Aquacel Ag to fill the wound bed and cover with a border foam. Curtis verbalized understand. Also instructed Curtis to change the dressings on his right leg using Aquacel Ag and border foam and to change dressings every 3 day. We will see Crutis on March 25, at 9:00 in the wound care center.
--- NOTE | 2018-03-21 09:26 | PM.DS.1 ---
History of Present Illness Date Patient Seen: 03/21/18 Chief complaint: INFECTION ON LEFT FOOT/WOUNDS ON RIGHT LEG Narrative: Patient is a 47-year-old male with history of type 2 diabetes with neuropathy, lower extremity ulcerations, hypertension presented to emergency department due to worsening ulcerations of left ft. He states that about a week ago, this past weekend, he noticed ulcers opening up on the left distal foot. This was accompanied by drainage, redness, fever and chills. He had some antibiotics from a prior prescription which she took 3 doses and fevers and chills seem to subside. However appearance of ulcers was getting worse and he presented to the ER on 03/14/2018 for evaluation. He was discharged on doxycycline with referral to [facility] where he was seen earlier today. At Wound Care they debrided ulcers but were concerned with appearance and referred him back to the ER whereupon he was directed to admission. Patient states that a couple months ago he had an ulcer in same area which he self treated and it seemed to heal up. He also has chronic non pressure ulcerations on right garcia which he feels are unchanged. He had foot x-ray performed at today's ER visit which suggested erosive changes involving the head of the 5th metatarsal suspicious for osteomyelitis. His WBC is normal without any left shift, ESR 19, CRP 3.1, glucose 266, A1c 10.9. Patient reports blood sugars at home usually in the 200s. He reports compliance with home medications. Discharge Providers Date of admission: 03/15/18 13:44 Consults: 03/15/18 16:00 Consult to Physician Routine Comment: Consulting Provider: Sally Aaron Reason for consultation: left foot ulcers Has provider been notified: Yes Consult to Wound Care Routine Comment: Consulting Provider: [facility] 03/19/18 17:19 Consult to Dietitian, Adult Routine Comment: Reason For Exam: poor appetitie Discharge provider: Judit Jang MD Discharge Date: 03/21/18 Summary Discharge Diagnosis: Left foot cellulitis, diabetic foot ulcer, present on admission Left foot osteomyelitis, present on admission Status post partial excision of the 5th metatarsal head Incision and debridement of soft tissue Type 2 diabetes complicated by diabetic neuropathy Hypertension Obesity Hospital Course: Patient is a 47-year-old male with type 2 diabetes complicated by peripheral neuropathy who presented with a diabetic foot ulcer, cellulitis and left foot osteomyelitis. Patient was seen by Orthopedic surgery and taken to the operating room for partial excision of the 5th metatarsal head with I&D and debridement of the soft tissue. Patient was seen by the wound care clinic. A wound VAC was placed on the open area with significant improvement. Cultures were positive for Staph epidermidis and fine Amalia a Magna on cultures. The patient was initially treated with IV ceftriaxone and successfully transition to 1 g of her Ertapenem. Blood sugars and blood pressure were controlled. The patient will be discharged home on IV ertapenem 1 g per day for 4 weeks. Following that he should be switched to Augmentin for total of an additional 8 weeks for 12 weeks of antibiotics. Would recommend outpatient evaluation by Dr. Kimball. Patient will be followed up with the Wound Care Clinic, Dr. Sharma who has reviewed his care here in the hospital. Patient had some nausea and decreased appetite which improved. He did have some occasional diarrhea felt to be antibiotic related that he was deemed appropriate for discharge and arrangements were made for him to discharge home. Status at Discharge Functional status at discharge: uses cane/walker Overall status at discharge: patient is back to baseline Time Spent with Patient Less than 30 minutes Exam Vital Signs (past 8 hours): - 03/21/18 03:26 03/21/18 08:17 03/21/18 08:41 Temperature 98.0 F 98.1 F Pulse Rate 71 73 Respiratory Rate 17 16 Blood Pressure 133/88 122/83 Pulse Oximetry 99 97 99 Oxygen Delivery Method Room Air Oxygen Flow Rate 0 Narrative Exam Narrative: Pleasant male in no acute distress Lungs clear to auscultation Cardiac exam regular rate and rhythm normal S1 and S2 with a 2/6 systolic ejection murmur Abdomen soft nontender nondistended Extremities: Left leg with wound VAC in place Objective Labs Result Diagrams: 03/17/18 05:12 03/17/18 05:12 Discharge Plan Discharge Plan Patient Disposition: Home Discharge comment: Patient will be followed by the Wound Care clinic. He should follow up with the [facility] clinic within 2 weeks to evaluate other chronic medical issues Discharge Med Rec/Prescriptions Prescriptions: New ertapenem [Invanz] 1 gram Recon Soln 1 gm IV Q24H 29 Days RF: 0 Continued metformin 500 mg Tablet 1,000 mg PO BID RF: 0 carvedilol 25 mg Tablet 25 mg PO 1300 RF: 0 amlodipine 10 mg Tablet 10 mg PO DAILY RF: 0 lisinopril 40 mg Tablet 40 mg PO DAILY RF: 0 glipizide 10 mg tablet 10 mg PO BID RF: 0 chlorthalidone 25 mg tablet 25 mg PO DAILY RF: 0 Provider Discharge Instructions Diet: Carb-consistent/Diabetic, Low-fat and Low-sodium Activity: as tolerated Skin/Wound/Dressing Care Report to your healthcare provider any signs of infection, such as:: chills, fever Dressing: change dressing per wound care recommendations Other wound treatment: f/u with the Wound Clinic as scheduled on Sunday Discharge Data Attending Provider: Eugene Kennedy Admit Date/Time: 03/15/18 13:44 Quality VTE Deep Vein Thrombosis/Pulmonary Embolism Present on Admission: No
[2018-03-21] MEDS: ERTAPENEM 1 GM in SODIUM CHLORIDE 0.9% 100 ML 200 ML IV (09:28)
[2018-03-21] MEDS: LISINOPRIL 20 MG TABLET 40 MG PO (09:29)
[2018-03-21] MEDS: AMLODIPINE 5 MG TABLET 10 MG PO (09:29)
[2018-03-21] MEDS: MEGESTROL 20 MG TABLET 40 MG PO (09:29)
[2018-03-21] MEDS: CHLORTHALIDONE 25 MG TABLET PO (09:29)
[2018-03-21] MEDS: glipiZIDE 5 MG TABLET 10 MG PO (09:29)
[2018-03-21] MEDS: SODIUM CHLORIDE 0.9% FLUSH 10 ML IV (09:30)
--- NOTE | 2018-03-21 10:22 | PM.PNPO.1 ---
Subjective Date Patient Seen: 03/21/18 Time Patient Seen: 10:22 Interval history: Hospital day 7, postop day 6 following excision of left 5th metatarsal head and phalanx by Dr. Aaron. Patient is being followed by hospitalist. He has also been seen by the wound clinic physician. He does have wound VAC has been placed by Wound Clinic. He was changed to ertapenem 1 g IV q.d. x4 weeks after discussion with Dr. Kimball, Infectious Disease. Patient will then be placed on Augmentin times additional 8 weeks. Arrangements are being made by the hospitalist for his IV antibiotic. Exam Vital Signs (past 8 hours): - 03/21/18 03:26 03/21/18 08:17 03/21/18 08:41 Temperature 98.0 F 98.1 F Pulse Rate 71 73 Respiratory Rate 17 16 Blood Pressure 133/88 122/83 Pulse Oximetry 99 97 99 Oxygen Delivery Method Room Air Oxygen Flow Rate 0 Narrative Exam Narrative: Alert, oriented no acute distress resting in bed. Left foot. Wound VAC in place to the little toe area. Good blanching and sensation to all toes. No signs of infection or inflammation. Objective Labs Result Diagrams: 03/17/18 05:12 03/17/18 05:12 Assessment & Plan Post-op Postoperative Procedures Operation Date: 03/16/18 12:00 Actual Procedures Side Surgeon p IRRIGATION,DEBRIDMENT,BONE BIOPSY, LEFT FOOT ULCERATION Sally Aaron MD Plan: Patient be discharged pending clearance by hospitalist and arrangements made with IV antibiotics and wound clinic. Dr. Aaron would like to see the patient in follow-up in 1 week in her office. Quality VTE Deep Vein Thrombosis/Pulmonary Embolism Present on Admission: No
--- NOTE | 2018-03-21 12:00 | CM.DPC ---
DCP/continued: Reviewed chart. Received notification from Dr. Jang that patient is medically stable for discharge. Placed call to Dilma at wound care. Outpatient appointment confirmed for Sunday03-25-18. In addition, placed call to infusion clinic re: outpatient IV abx. Unfortunately, outpatient clinic reports that patient insurance requires authorization from [facility] They do not obtain therefore, met with patient and asked if he was agreeable for DRAPERY ESTIMATOR to contact [facility] for outpatient IV abx in the home. Patient aware and agreeable. Placed call to infusion [employer] spoke with pharmacy. They requested clinicals and script be faxed for review. Received return phone call from [facility] and they can accept referral. Next dose of IV abx due tomorrow in AM. [facility] plans to be at patient's residence in AM. Patient provided with brochure with name/number of agency. No additional needs identified. P: Home today with [facility] and outpatient wound care w[facility]ound [facility]. CHUCHO Steen
[2018-03-21] MEDS: INSULIN ASPART 100 UNIT/ML INSULN PEN SUBCUT (12:04)
[2018-03-21] MEDS: CARVEDILOL 25 MG TABLET PO (12:04)
--- NOTE | 2018-03-21 14:09 | PC.NURSE ---
Day shift: Pt left unit at approx 1330. He went with RANI Lima to [facility]. He has all personal belongings. Paperwork signed and all questions answered. Home health contacted and will help him get set up with IV antibiotics. Wound care to see Pt now per MD.
== END 2018-03-21 14:10 | disposition home or self-care (01) | DRG 314 ==
LOC: ED 13:33 → AC 13:44
PROVIDERS: Emergency Medicine; Internal Medicine; Orthopaedic Surgery Foot and Ankle Surgery; Admitting Provider Internal Medicine; Emergency Provider Nurse Practitioner Family; Visit Provider Internal Medicine
PROC: 0QBP0ZZ Excision of Left Metatarsal, Open Approach (ICD-10-PCS; principal; 2018-03-16 12:00)
DX: E11.69 Type 2 diabetes mellitus with other specified complication (principal); E11.52 Type 2 diabetes mellitus with diabetic peripheral angiopathy with gangrene; M86.8X7 Other osteomyelitis, ankle and foot; L03.116 Cellulitis of left lower limb; E11.621 Type 2 diabetes mellitus with foot ulcer; E11.40 Type 2 diabetes mellitus with diabetic neuropathy, unspecified; E11.65 Type 2 diabetes mellitus with hyperglycemia; L97.526 Non-pressure chronic ulcer of other part of left foot with bone involvement without evidence of necrosis; I96 Gangrene, not elsewhere classified; R11.0 Nausea; Z79.84 Long term (current) use of oral hypoglycemic drugs; Z87.891 Personal history of nicotine dependence; I10 Essential (primary) hypertension; E78.5 Hyperlipidemia, unspecified; E66.9 Obesity, unspecified; Z68.37 Body mass index [BMI] 37.0-37.9, adult
CPT/HCPCS: 11042; 11043; 36415; 36573; 36591; 71045; 73630; 73720; 80053; 80202; 81001; 82962; 83036; 83605; 83690; 84145; 85025; 85610; 85651; 85730; 86140; 87040; 87070; 87075; 87077; 87102; 87116; 87147; 87186; 87205; 88305; 88311; 96361; 96365; 99214; 99282; 99283; 99284; J0696; J1335; J2405; J2704; J3010

== ENCOUNTER 2018-03-24 20:46 | Emergency (ER) | payer OTHER, MEDICAID, SELFPAY ==
[2018-03-15 14:45] VITALS: BMI 54.1
[2018-03-24 21:15] VITALS: BP 106/71; PULSE 96; RESP 18; TEMP 37.1; O2SAT 96; BMI 38.6
--- NOTE | 2018-03-24 21:23 | DI.RAD.S_ITS ---
PROCEDURE: XR CHEST 1V INDICATIONS: VERIFY PICC PLACEMENT TECHNIQUE: One view of the chest was acquired. COMPARISON: [facility], CR, XR CHEST 1V, 03/15/2018, 11:12. [facility], CR, XR CHEST FOR PICC 1V, 03/19/2018, 11:16. FINDINGS: Surgical changes and devices: There is a left upper extremity PICC line with the tip in the region of the cavoatrial junction. Lungs and pleura: Lungs are clear. No pleural effusions or pneumothorax. Mediastinum: Mediastinal contours appear unchanged. Heart size is normal. Bones and chest wall: No suspicious bony lesions. Overlying soft tissues appear unremarkable. IMPRESSION: 1. PICC line tip extends to the region of the cavoatrial junction. Dictated by: Nemesio Foreman M.D. on 03/24/2018 at 22:25 Approved by: Nemesio Foreman M.D. on 03/24/2018 at 22:26
--- NOTE | 2018-03-24 23:45 | ED.RECABL ---
HPI - Recheck/Abnormal Lab/Rx General Chief Complaint: Recheck/Abnormal Lab/Rx Stated Complaint: states PIC line blewout Time Seen by Provider: 03/24/18 23:45 Source: patient Mode of arrival: ambulatory Limitations: no limitations History of Present Illness HPI narrative: The patient was seen for a left leg cellulitis this past week. He is diabetic. He is now in wound care. He has a left arm PICC line in place. Earlier today picked up a bag of onions. He has bleeding under the bandage in the left arm with a PICC line is located. There is no further bleeding at this time. The bandage has not been removed. The line is not obviously been pulled. He has no pain at the site. There is no swelling in the arm. Related Data Home Medications Medication Instructions Recorded Confirmed amlodipine 10 mg PO DAILY 03/14/18 03/15/18 carvedilol 25 mg PO 1300 03/14/18 03/15/18 lisinopril 40 mg PO DAILY 03/14/18 03/15/18 metformin 1,000 mg PO BID 03/14/18 03/15/18 chlorthalidone 25 mg PO DAILY 03/15/18 03/15/18 glipizide 10 mg PO BID 03/15/18 03/15/18 Previous Rx's Medication Instructions Recorded ertapenem [Invanz] 1 gm IV Q24H 29 Days each 03/21/18 Allergies Allergy/AdvReac Type Severity Reaction Status Date / Time No Known Drug Allergies Allergy Verified 03/24/18 21:14 Review of Systems Constitutional Denies chills, Denies fever(s) and Denies lethargy Cardiovascular Denies chest pain and Denies dyspnea Respiratory Denies cough and Denies dyspnea Musculoskeletal Denies back pain, Denies muscle weakness, Denies numbness and Denies tingling Comments: Bleeding at the left arm PICC line site. Neurologic Denies numbness and Denies tingling [facility] Medical History Congestive heart failure (Acute) Diabetes (Acute) Diabetes mellitus (Acute) Surgical History No pertinent past surgical history (Acute) Social History household members: spouse and children Smoking Status: Former smoker alcohol intake: never Social History household members: spouse and children Smoking Status: Former smoker alcohol intake: never Exam Initial Vital Signs Initial Vital Signs: Vital Signs Temperature 98.7 F 03/24/18 21:15 Pulse Rate 96 H 03/24/18 21:15 Respiratory Rate 18 03/24/18 21:15 Blood Pressure 106/71 03/24/18 21:15 Pulse Oximetry 96 03/24/18 21:15 Const General: cooperative and well developed Nutritional Appearance: well nourished Orientation: alert, awake, oriented x3 and not confused Chest Chest: No tenderness Resp Effort & Inspection: normal respiratory effort and able to speak in complete sentences Auscultation: clear to auscultation bilaterally and no wheezes Skin Other: Left arm shows the PICC line in the biceps region. There is blood under the dressing at the insert site, no subcutaneous swelling. Extrem Other: Left arm is neurovascularly intact. Course Orders Ordered: ED Orders 03/24/18 21:23 XR chest 1V Stat Vital Signs - 8 hr 03/24/18 21:15 Temperature 98.7 F Pulse Rate 96 H Respiratory Rate 18 Blood Pressure 106/71 Pulse Oximetry 96 MDM - Recheck/Abnormal Lab/Rx Imaging Data Chest x-ray: Radiologist's impression: The left PICC line is appropriately placed. Normal lung inflation, no pneumothorax. MDM Narrative Medical decision making narrative: The bandage was changed, the blood site was cleaned. The line is functional. Discharge Plan Departure Patient Disposition: Home Clinical Impression: Visit for wound check Activity Restrictions/Additional Instructions: Follow-up with her doctor as planned for management a left leg cellulitis. The PICC line is intact. Return here as needed. Prescriptions: No Action metformin 500 mg Tablet 1,000 mg PO BID RF: 0 carvedilol 25 mg Tablet 25 mg PO 1300 RF: 0 amlodipine 10 mg Tablet 10 mg PO DAILY RF: 0 lisinopril 40 mg Tablet 40 mg PO DAILY RF: 0 glipizide 10 mg tablet 10 mg PO BID RF: 0 chlorthalidone 25 mg tablet 25 mg PO DAILY RF: 0 ertapenem [Invanz] 1 gram Recon Soln 1 gm IV Q24H 29 Days RF: 0
--- NOTE | 2018-03-25 00:47 | PC.NURSE ---
patient with blood under PICC line dressing. dressing changed in a sterile field. in a sterile field the blood was cleaned from skin and around PICC line. patient tolerated well. New stat lock placed. provider aware and no new orders at this time.
[2018-03-25 00:49] VITALS: BP 120/83; PULSE 72; RESP 16; TEMP 36.9; O2SAT 100
== END 2018-03-25 00:50 | disposition home or self-care (01) ==
PROVIDERS: Emergency Provider Emergency Medicine
DX: Z51.89 Encounter for other specified aftercare (principal); Z95.828 Presence of other vascular implants and grafts
CPT/HCPCS: 71045; 99282; 99283

== ENCOUNTER → 2018-03-25 10:00 | Outpatient (CLI) | payer OTHER, MEDICAID, SELFPAY ==
[2018-03-15 14:45] VITALS: BMI 54.1
== END ==
PROVIDERS: Visit Provider Family Medicine
DX: E11.621 Type 2 diabetes mellitus with foot ulcer (principal); L97.523 Non-pressure chronic ulcer of other part of left foot with necrosis of muscle; I87.311 Chronic venous hypertension (idiopathic) with ulcer of right lower extremity; L97.812 Non-pressure chronic ulcer of other part of right lower leg with fat layer exposed; E11.622 Type 2 diabetes mellitus with other skin ulcer; L97.411 Non-pressure chronic ulcer of right heel and midfoot limited to breakdown of skin; M86.172 Other acute osteomyelitis, left ankle and foot
CPT/HCPCS: 11042; 11045; 99213

== ENCOUNTER → 2018-03-26 11:02 | Outpatient (CLI) | payer OTHER, MEDICAID, SELFPAY ==
[2018-03-15 14:45] VITALS: BMI 54.1
--- NOTE | 2018-03-26 | DI.RAD.S_ITS ---
PROCEDURE: XR FOOT RT MIN 3V INDICATIONS: Evaluate for Osteomylitis TECHNIQUE: 3 views of the foot were acquired. COMPARISON: [facility], CR, XR FOOT LT MIN 3V, 03/15/2018, 12:25. FINDINGS: Bones: No fractures or dislocations. No suspicious bony lesions. Diffuse spurring throughout the mid foot and hindfoot. Plantar calcaneal spur seen. First MTP joint degeneration. No focal osseous destruction identified. Soft tissues: Prominent soft tissue swelling along the medial aspect of the great toe the level of the interphalangeal joints. IMPRESSION: Prominent soft tissue swelling along medial aspect of the great toe. Recommend clinical correlation. Elsewhere, no focal osseous destruction to suggest advanced osteomyelitis. If there is persistent clinical concern, continued short interval radiographic followup or contrast enhanced MRI could be performed to assess for early infection. Diffuse degenerative changes as above. Dictated by: Yong Short M.D. on 03/26/2018 at 13:48 Approved by: Yong Short M.D. on 03/26/2018 at 14:01
== END ==
PROVIDERS: Visit Provider Family Medicine
DX: L97.512 Non-pressure chronic ulcer of other part of right foot with fat layer exposed (principal); M77.31 Calcaneal spur, right foot; M19.071 Primary osteoarthritis, right ankle and foot; M79.89 Other specified soft tissue disorders
CPT/HCPCS: 73630

== ENCOUNTER → 2018-03-28 15:05 | Outpatient (CLI) | payer OTHER, MEDICAID, SELFPAY ==
[2018-03-15 14:45] VITALS: BMI 54.1
== END ==
PROVIDERS: Visit Provider Family Medicine
DX: E11.621 Type 2 diabetes mellitus with foot ulcer (principal); L97.524 Non-pressure chronic ulcer of other part of left foot with necrosis of bone; M86.172 Other acute osteomyelitis, left ankle and foot; I87.311 Chronic venous hypertension (idiopathic) with ulcer of right lower extremity; L97.812 Non-pressure chronic ulcer of other part of right lower leg with fat layer exposed; E11.622 Type 2 diabetes mellitus with other skin ulcer; L97.411 Non-pressure chronic ulcer of right heel and midfoot limited to breakdown of skin
CPT/HCPCS: 11042; 11045

== ENCOUNTER → 2018-04-01 09:46 | Outpatient (CLI) | payer OTHER, MEDICAID, SELFPAY ==
[2018-03-15 14:45] VITALS: BMI 54.1
== END ==
PROVIDERS: Visit Provider Family Medicine
DX: I87.311 Chronic venous hypertension (idiopathic) with ulcer of right lower extremity (principal); L97.812 Non-pressure chronic ulcer of other part of right lower leg with fat layer exposed; E11.622 Type 2 diabetes mellitus with other skin ulcer; L97.411 Non-pressure chronic ulcer of right heel and midfoot limited to breakdown of skin; E11.621 Type 2 diabetes mellitus with foot ulcer; M86.172 Other acute osteomyelitis, left ankle and foot; L97.524 Non-pressure chronic ulcer of other part of left foot with necrosis of bone
CPT/HCPCS: 11042; 11043; 97607

== ENCOUNTER → 2018-04-04 09:57 | Outpatient (CLI) | payer OTHER, MEDICAID, SELFPAY ==
[2018-03-15 14:45] VITALS: BMI 54.1
== END ==
PROVIDERS: Visit Provider Family Medicine
DX: E11.621 Type 2 diabetes mellitus with foot ulcer (principal); L97.521 Non-pressure chronic ulcer of other part of left foot limited to breakdown of skin
CPT/HCPCS: 97607

== ENCOUNTER → 2018-04-08 13:39 | Outpatient (CLI) | payer OTHER, MEDICAID, SELFPAY ==
[2018-03-15 14:45] VITALS: BMI 54.1
== END ==
PROVIDERS: Visit Provider Family Medicine
DX: E11.621 Type 2 diabetes mellitus with foot ulcer (principal); L97.523 Non-pressure chronic ulcer of other part of left foot with necrosis of muscle; L97.511 Non-pressure chronic ulcer of other part of right foot limited to breakdown of skin; I87.311 Chronic venous hypertension (idiopathic) with ulcer of right lower extremity; L97.812 Non-pressure chronic ulcer of other part of right lower leg with fat layer exposed; M86.172 Other acute osteomyelitis, left ankle and foot
CPT/HCPCS: 11042; 11045; 87070; 87075; 87077; 87147; 87186; 87205; 99212

== ENCOUNTER → 2018-04-11 10:01 | Outpatient (CLI) | payer OTHER, MEDICAID, SELFPAY ==
[2018-03-15 14:45] VITALS: BMI 54.1
== END ==
PROVIDERS: Visit Provider Family Medicine
DX: E11.621 Type 2 diabetes mellitus with foot ulcer (principal); L97.524 Non-pressure chronic ulcer of other part of left foot with necrosis of bone; L97.512 Non-pressure chronic ulcer of other part of right foot with fat layer exposed; I87.311 Chronic venous hypertension (idiopathic) with ulcer of right lower extremity; L97.812 Non-pressure chronic ulcer of other part of right lower leg with fat layer exposed; M86.172 Other acute osteomyelitis, left ankle and foot
CPT/HCPCS: 11042; 11045; 87070; 87075; 87077; 87186; 87205; 97607

== ENCOUNTER → 2018-04-15 14:29 | Outpatient (CLI) | payer OTHER, MEDICAID, SELFPAY ==
[2018-03-15 14:45] VITALS: BMI 54.1
== END ==
PROVIDERS: Visit Provider Family Medicine
DX: E11.621 Type 2 diabetes mellitus with foot ulcer (principal); L97.524 Non-pressure chronic ulcer of other part of left foot with necrosis of bone; M86.172 Other acute osteomyelitis, left ankle and foot; I87.311 Chronic venous hypertension (idiopathic) with ulcer of right lower extremity; L97.812 Non-pressure chronic ulcer of other part of right lower leg with fat layer exposed; L97.512 Non-pressure chronic ulcer of other part of right foot with fat layer exposed; B95.7 Other staphylococcus as the cause of diseases classified elsewhere
CPT/HCPCS: 11042; 11045; 99214

== ENCOUNTER → 2018-04-18 16:25 | Outpatient (CLI) | payer OTHER, MEDICAID, SELFPAY ==
[2018-03-15 14:45] VITALS: BMI 54.1
== END ==
PROVIDERS: Visit Provider Family Medicine
DX: E11.621 Type 2 diabetes mellitus with foot ulcer (principal); L97.524 Non-pressure chronic ulcer of other part of left foot with necrosis of bone; M86.172 Other acute osteomyelitis, left ankle and foot; I87.311 Chronic venous hypertension (idiopathic) with ulcer of right lower extremity; L97.812 Non-pressure chronic ulcer of other part of right lower leg with fat layer exposed; L97.512 Non-pressure chronic ulcer of other part of right foot with fat layer exposed; B95.7 Other staphylococcus as the cause of diseases classified elsewhere
CPT/HCPCS: 17250; 29581

== ENCOUNTER → 2018-04-22 08:40 | Outpatient (CLI) | payer OTHER, MEDICAID, SELFPAY ==
[2018-03-15 14:45] VITALS: BMI 54.1
== END ==
PROVIDERS: Visit Provider Family Medicine
DX: E11.621 Type 2 diabetes mellitus with foot ulcer (principal); L97.524 Non-pressure chronic ulcer of other part of left foot with necrosis of bone; M86.172 Other acute osteomyelitis, left ankle and foot; I87.311 Chronic venous hypertension (idiopathic) with ulcer of right lower extremity; L97.812 Non-pressure chronic ulcer of other part of right lower leg with fat layer exposed; L97.512 Non-pressure chronic ulcer of other part of right foot with fat layer exposed; L89.892 Pressure ulcer of other site, stage 2; B95.7 Other staphylococcus as the cause of diseases classified elsewhere
CPT/HCPCS: 11042; 97597; 97598; 99213

== ENCOUNTER → 2018-04-25 09:05 | Outpatient (CLI) | payer OTHER, MEDICAID, SELFPAY ==
[2018-03-15 14:45] VITALS: BMI 54.1
== END ==
PROVIDERS: Visit Provider Family Medicine
DX: E11.621 Type 2 diabetes mellitus with foot ulcer (principal); L97.525 Non-pressure chronic ulcer of other part of left foot with muscle involvement without evidence of necrosis; I87.311 Chronic venous hypertension (idiopathic) with ulcer of right lower extremity; L97.812 Non-pressure chronic ulcer of other part of right lower leg with fat layer exposed; L89.892 Pressure ulcer of other site, stage 2; M86.172 Other acute osteomyelitis, left ankle and foot
CPT/HCPCS: 11042; 11045; 87070; 87075; 87205

== ENCOUNTER → 2018-05-01 09:22 | Outpatient (CLI) | payer OTHER, MEDICAID, SELFPAY ==
[2018-03-15 14:45] VITALS: BMI 54.1
== END ==
PROVIDERS: Visit Provider Family Medicine
DX: I87.311 Chronic venous hypertension (idiopathic) with ulcer of right lower extremity (principal); L97.811 Non-pressure chronic ulcer of other part of right lower leg limited to breakdown of skin; L97.311 Non-pressure chronic ulcer of right ankle limited to breakdown of skin; L89.893 Pressure ulcer of other site, stage 3; S81.802A Unspecified open wound, left lower leg, initial encounter; E11.621 Type 2 diabetes mellitus with foot ulcer; L97.521 Non-pressure chronic ulcer of other part of left foot limited to breakdown of skin; M86.672 Other chronic osteomyelitis, left ankle and foot
CPT/HCPCS: 11042; 87070; 87075; 87077; 87186; 87205; 97597

== ENCOUNTER → 2018-05-08 09:35 | Outpatient (CLI) | payer SELFPAY ==
[2018-03-15 14:45] VITALS: BMI 54.1
== END ==
PROVIDERS: Visit Provider Family Medicine
DX: E11.621 Type 2 diabetes mellitus with foot ulcer (principal); L97.521 Non-pressure chronic ulcer of other part of left foot limited to breakdown of skin; I87.313 Chronic venous hypertension (idiopathic) with ulcer of bilateral lower extremity; L97.821 Non-pressure chronic ulcer of other part of left lower leg limited to breakdown of skin; L97.811 Non-pressure chronic ulcer of other part of right lower leg limited to breakdown of skin
CPT/HCPCS: 11042; 97597; 99214

== ENCOUNTER 2019-01-14 22:11 | Emergency (ER) | payer OTHER, SELFPAY ==
[2018-03-15 14:45] VITALS: BMI 54.1
[2019-01-14 22:16] VITALS: BP 232/127; PULSE 95; RESP 16; TEMP 36.7; O2SAT 99; BMI 37.0
--- NOTE | 2019-01-14 22:39 | ED.SKABFB ---
HPI - Skin/Abscess/Foreign Bdy General Chief complaint: Skin/Abscess/Foreign Body Stated complaint: Wounds on legs Time Seen by Provider: 01/14/19 22:35 Source: patient Mode of arrival: Ambulatory Limitations: no limitations History of Present Illness HPI narrative: 48-year-old male is a rqp-hyfiefz-eogpuarod diabetic here for evaluation of multiple sores to his feet. Patient states that a couple days ago he started noticing some redness and swelling to his right foot. He states this was after he was ?picking? at a callus that he had on his foot. He stated that he had some antibiotics at home left over from prior infection. Does not with these antibiotics were. He states he took 1 pill a day for about 5 days. He thinks that the redness did improve since then. He has seen wound care in the past. He has had osteomyelitis in the past. Related Data Home Medications Medication Instructions Recorded Confirmed amlodipine 10 mg PO DAILY 03/14/18 03/15/18 carvedilol 25 mg PO 1300 03/14/18 03/15/18 lisinopril 40 mg PO DAILY 03/14/18 03/15/18 metformin 1,000 mg PO BID 03/14/18 03/15/18 chlorthalidone 25 mg PO DAILY 03/15/18 03/15/18 glipizide 10 mg PO BID 03/15/18 03/15/18 Previous Rx's Medication Instructions Recorded cephalexin 500 mg PO QID 14 Days #56 cap 01/14/19 Allergies Allergy/AdvReac Type Severity Reaction Status Date / Time No Known Drug Allergies Allergy Verified 03/24/18 21:14 Review of Systems Constitutional Constitutional: Denies fever(s) Cardiovascular Cardiovascular: Denies chest pain and Denies dyspnea Respiratory Respiratory: Denies dyspnea Musculoskeletal Musculoskeletal: Denies myalgias and Denies arthralgias Integumentary/Breasts Comments: Wounds bilateral lower extremities Neurologic Neurologic: Denies behavioral changes Psychiatric Psychiatric: Denies behavioral changes Hematologic/Lymphatic Hematologic/Lymphatic: Denies easy bleeding and Denies easy bruising Patient History Medical History Congestive heart failure (Acute) Diabetes (Acute) Diabetes mellitus (Acute) Social History household members: spouse and children Smoking Status: Former smoker alcohol intake: never Smoking Status: Former smoker alcohol intake frequency: 0-2 drinks per day Substance Use Type: marijuana Exam Initial Vital Signs Initial Vital Signs: Vital Signs Temperature 98.1 F 01/14/19 22:16 Pulse Rate 95 H 01/14/19 22:16 Respiratory Rate 16 01/14/19 22:16 Blood Pressure 232/127 H 01/14/19 22:16 Pulse Oximetry 99 01/14/19 22:16 Const General: cooperative, comfortable and well developed Orientation: alert, awake and oriented x3 Cardio Pulses: dorsalis pedis present bilaterally Skin Other: Patient has multiple calluses on both of his feet. He also has multiple ulcerations on bilateral lower extremities in various stages of healing. None of these ulcerations have surrounding erythema. Neuro General: alert and awake Sensory Exam: no sensory deficits noted Extrem Other: Full range of motion bilateral ankles Psych Appearance: grossly normal and well kempt Course Vital Signs Vital signs: Vital Signs - 8 hr 01/14/19 22:16 01/14/19 22:42 Temperature 98.1 F Pulse Rate 95 H 74 Respiratory Rate 16 18 Blood Pressure 232/127 H 167/101 H Blood Pressure [Left Arm] 195/107 H Pulse Oximetry 99 99 MDM - Skin/Abscess/Foreign Bdy Lab Data Labs: Point of Care Testing Glucose POC 317 MDM Narrative Medical decision making narrative: Patient has multiple wounds on bilateral lower extremities in multiple stages of healing. He also has multiple calluses on his feet. There's no active drainage in any of the areas. He has had osteomyelitis in the past. He does have feeling in bilateral feet. Given his clinical presentation I feel that antibiotics are not unreasonable. He is given a prescription for Keflex. A referral for wound care was also placed and faxed to that facility. He was given phone number for the local Orthopedic group to get in to see Podiatry. No indication for admission to the hospital. No indication for IV antibiotics. No indication for radiologic studies. Discharge Plan Departure Patient Disposition: Home Clinical Impression: Ulcer of left lower leg, Ulcer of right leg, Diabetes Discharge Date/Time: 01/14/19 22:42 Instructions: Complications of Type 2 Diabetes, Diabetes and Foot Care Activity Restrictions/Additional Instructions: You can contact the health electronic resources librarian here in the hospital at [phone] to help you establish a primary provider. I also recommend you call the [facility] group at [phone] to set up an appointment with Podiatry. A referral was also sent to the wound care clinic here at the hospital. Take the antibiotics as directed. Return to the emergency department for any new or worsening symptoms Prescriptions: New cephalexin 500 mg capsule 500 mg PO QID 14 Days Qty: 56 RF: 0 No Action metformin 500 mg Tablet 1,000 mg PO BID RF: 0 carvedilol 25 mg Tablet 25 mg PO 1300 RF: 0 amlodipine 10 mg Tablet 10 mg PO DAILY RF: 0 lisinopril 40 mg Tablet 40 mg PO DAILY RF: 0 glipizide 10 mg tablet 10 mg PO BID RF: 0 chlorthalidone 25 mg tablet 25 mg PO DAILY RF: 0
[2019-01-14 22:42] VITALS: BP 167/101; BP 195/107; PULSE 74; RESP 18; O2SAT 97; O2SAT 99
== END 2019-01-14 22:42 | disposition home or self-care (01) ==
PROVIDERS: Emergency Provider Emergency Medicine
DX: E11.621 Type 2 diabetes mellitus with foot ulcer (principal); E11.622 Type 2 diabetes mellitus with other skin ulcer; L97.919 Non-pressure chronic ulcer of unspecified part of right lower leg with unspecified severity
CPT/HCPCS: 82962; 99283

== ENCOUNTER → 2019-01-22 08:35 | Outpatient (CLI) | payer OTHER, SELFPAY ==
[2018-03-15 14:45] VITALS: BMI 54.1
== END ==
PROVIDERS: Visit Provider Family Medicine
DX: M79.671 Pain in right foot (principal); M79.672 Pain in left foot; L84 Corns and callosities; L97.919 Non-pressure chronic ulcer of unspecified part of right lower leg with unspecified severity; L97.929 Non-pressure chronic ulcer of unspecified part of left lower leg with unspecified severity; E11.43 Type 2 diabetes mellitus with diabetic autonomic (poly)neuropathy; L08.0 Pyoderma
CPT/HCPCS: 11057; 11104; 87070; 87075; 87077; 87186; 87205; 99213; 99214

== ENCOUNTER → 2019-01-28 08:45 | Outpatient (CLI) | payer OTHER, SELFPAY ==
[2018-03-15 14:45] VITALS: BMI 54.1
== END ==
PROVIDERS: Visit Provider Family Medicine
DX: L97.811 Non-pressure chronic ulcer of other part of right lower leg limited to breakdown of skin (principal); L97.921 Non-pressure chronic ulcer of unspecified part of left lower leg limited to breakdown of skin; E11.65 Type 2 diabetes mellitus with hyperglycemia; B95.7 Other staphylococcus as the cause of diseases classified elsewhere; Z91.19 Patient's noncompliance with other medical treatment and regimen
CPT/HCPCS: 11042; 99214

== ENCOUNTER → 2019-02-11 09:10 | Outpatient (CLI) | payer OTHER, SELFPAY ==
[2018-03-15 14:45] VITALS: BMI 54.1
== END ==
PROVIDERS: Visit Provider Family Medicine
DX: E11.628 Type 2 diabetes mellitus with other skin complications (principal); S81.801A Unspecified open wound, right lower leg, initial encounter; S81.802A Unspecified open wound, left lower leg, initial encounter; R60.0 Localized edema; E11.40 Type 2 diabetes mellitus with diabetic neuropathy, unspecified
CPT/HCPCS: 29581; 99214

== ENCOUNTER → 2019-02-13 08:47 | Outpatient (CLI) | payer OTHER, SELFPAY ==
[2018-03-15 14:45] VITALS: BMI 54.1
== END ==
PROVIDERS: Visit Provider Family Medicine
DX: S81.801A Unspecified open wound, right lower leg, initial encounter (principal); S81.802A Unspecified open wound, left lower leg, initial encounter; R60.0 Localized edema
CPT/HCPCS: 29581

== ENCOUNTER → 2019-02-20 08:28 | Outpatient (CLI) | payer OTHER, SELFPAY ==
[2018-03-15 14:45] VITALS: BMI 54.1
== END ==
PROVIDERS: Visit Provider Family Medicine
DX: E11.621 Type 2 diabetes mellitus with foot ulcer (principal); L97.811 Non-pressure chronic ulcer of other part of right lower leg limited to breakdown of skin; L97.511 Non-pressure chronic ulcer of other part of right foot limited to breakdown of skin; L08.9 Local infection of the skin and subcutaneous tissue, unspecified; R60.0 Localized edema; E11.43 Type 2 diabetes mellitus with diabetic autonomic (poly)neuropathy; I77.6 Arteritis, unspecified
CPT/HCPCS: 11042; 87070; 87075; 87077; 87186; 87205; 97597; 99213; 99214

== ENCOUNTER → 2019-02-27 08:34 | Outpatient (CLI) | payer OTHER, SELFPAY ==
[2018-03-15 14:45] VITALS: BMI 54.1
== END ==
PROVIDERS: Visit Provider Family Medicine
DX: E11.621 Type 2 diabetes mellitus with foot ulcer (principal); L97.811 Non-pressure chronic ulcer of other part of right lower leg limited to breakdown of skin; L97.821 Non-pressure chronic ulcer of other part of left lower leg limited to breakdown of skin; L97.511 Non-pressure chronic ulcer of other part of right foot limited to breakdown of skin; L08.9 Local infection of the skin and subcutaneous tissue, unspecified; I77.6 Arteritis, unspecified; R60.0 Localized edema; E11.43 Type 2 diabetes mellitus with diabetic autonomic (poly)neuropathy
CPT/HCPCS: 11042; 29581; 99214

== ENCOUNTER → 2019-03-06 10:26 | Outpatient (CLI) | payer OTHER, SELFPAY ==
[2018-03-15 14:45] VITALS: BMI 54.1
== END ==
PROVIDERS: Visit Provider Family Medicine
DX: E11.621 Type 2 diabetes mellitus with foot ulcer (principal); L97.511 Non-pressure chronic ulcer of other part of right foot limited to breakdown of skin; L97.521 Non-pressure chronic ulcer of other part of left foot limited to breakdown of skin; E11.43 Type 2 diabetes mellitus with diabetic autonomic (poly)neuropathy; I77.6 Arteritis, unspecified
CPT/HCPCS: 11042; 87070; 87075; 87077; 87147; 87205; 99214

== ENCOUNTER → 2019-03-10 14:32 | Outpatient (CLI) | payer OTHER, SELFPAY ==
[2018-03-15 14:45] VITALS: BMI 54.1
== END ==
PROVIDERS: Referring Provider Emergency Medicine; Visit Provider Family Medicine
DX: E11.621 Type 2 diabetes mellitus with foot ulcer (principal); E11.628 Type 2 diabetes mellitus with other skin complications; S81.801A Unspecified open wound, right lower leg, initial encounter; S81.802A Unspecified open wound, left lower leg, initial encounter; L97.521 Non-pressure chronic ulcer of other part of left foot limited to breakdown of skin; L97.511 Non-pressure chronic ulcer of other part of right foot limited to breakdown of skin; R60.0 Localized edema
CPT/HCPCS: 29581

== ENCOUNTER → 2019-03-20 10:58 | Outpatient (CLI) | payer OTHER, SELFPAY ==
[2018-03-15 14:45] VITALS: BMI 54.1
== END ==
PROVIDERS: Referring Provider Emergency Medicine; Visit Provider Family Medicine
DX: E11.621 Type 2 diabetes mellitus with foot ulcer (principal); E11.628 Type 2 diabetes mellitus with other skin complications; S81.801A Unspecified open wound, right lower leg, initial encounter; S81.802A Unspecified open wound, left lower leg, initial encounter; L97.511 Non-pressure chronic ulcer of other part of right foot limited to breakdown of skin; L97.521 Non-pressure chronic ulcer of other part of left foot limited to breakdown of skin; R60.0 Localized edema
CPT/HCPCS: 29581

== ENCOUNTER → 2019-03-27 08:31 | Outpatient (CLI) | payer OTHER, SELFPAY ==
[2018-03-15 14:45] VITALS: BMI 54.1
== END ==
PROVIDERS: Referring Provider Emergency Medicine; Visit Provider Family Medicine
DX: I77.6 Arteritis, unspecified (principal); L97.811 Non-pressure chronic ulcer of other part of right lower leg limited to breakdown of skin; L97.821 Non-pressure chronic ulcer of other part of left lower leg limited to breakdown of skin; E11.43 Type 2 diabetes mellitus with diabetic autonomic (poly)neuropathy; R60.0 Localized edema
CPT/HCPCS: 29581; 97597; 97598; 99213; 99214

== ENCOUNTER → 2019-04-03 08:38 | Outpatient (CLI) | payer OTHER, SELFPAY ==
[2018-03-15 14:45] VITALS: BMI 54.1
== END ==
LOC: WC 08:45
PROVIDERS: PCP Family Medicine; Referring Provider Emergency Medicine; Visit Provider Family Medicine
DX: S81.802A Unspecified open wound, left lower leg, initial encounter (principal); S81.801A Unspecified open wound, right lower leg, initial encounter; R60.0 Localized edema
CPT/HCPCS: 29581

== ENCOUNTER → 2019-04-10 10:24 | Outpatient (CLI) | payer OTHER, SELFPAY ==
[2018-03-15 14:45] VITALS: BMI 54.1
== END ==
PROVIDERS: PCP Family Medicine; Referring Provider Family Medicine; Visit Provider Family Medicine
DX: L95.8 Other vasculitis limited to the skin (principal); L97.811 Non-pressure chronic ulcer of other part of right lower leg limited to breakdown of skin; L97.821 Non-pressure chronic ulcer of other part of left lower leg limited to breakdown of skin; E11.622 Type 2 diabetes mellitus with other skin ulcer; E11.43 Type 2 diabetes mellitus with diabetic autonomic (poly)neuropathy; I77.6 Arteritis, unspecified
CPT/HCPCS: 97597; 99214

== ENCOUNTER → 2019-04-17 09:35 | Outpatient (CLI) | payer OTHER, SELFPAY ==
[2018-03-15 14:45] VITALS: BMI 54.1
== END ==
LOC: WC 09:36
PROVIDERS: PCP Family Medicine; Referring Provider Emergency Medicine; Visit Provider Family Medicine
DX: L95.9 Vasculitis limited to the skin, unspecified (principal); L97.811 Non-pressure chronic ulcer of other part of right lower leg limited to breakdown of skin; L97.821 Non-pressure chronic ulcer of other part of left lower leg limited to breakdown of skin; E11.43 Type 2 diabetes mellitus with diabetic autonomic (poly)neuropathy; I77.6 Arteritis, unspecified; E11.622 Type 2 diabetes mellitus with other skin ulcer
CPT/HCPCS: 97597; 99213

== ENCOUNTER → 2019-04-24 08:51 | Outpatient (CLI) | payer OTHER, SELFPAY ==
[2018-03-15 14:45] VITALS: BMI 54.1
== END ==
PROVIDERS: PCP Family Medicine; Referring Provider Emergency Medicine; Visit Provider Family Medicine
DX: L95.9 Vasculitis limited to the skin, unspecified (principal); L97.811 Non-pressure chronic ulcer of other part of right lower leg limited to breakdown of skin; L97.821 Non-pressure chronic ulcer of other part of left lower leg limited to breakdown of skin; E11.622 Type 2 diabetes mellitus with other skin ulcer; E11.43 Type 2 diabetes mellitus with diabetic autonomic (poly)neuropathy; I77.6 Arteritis, unspecified
CPT/HCPCS: 11042; 11045; 99212

== ENCOUNTER → 2019-05-20 09:44 | Outpatient (CLI) | payer OTHER, SELFPAY ==
[2018-03-15 14:45] VITALS: BMI 54.1
== END ==
LOC: WC 09:45
PROVIDERS: PCP Family Medicine; Referring Provider Family Medicine; Visit Provider Family Medicine
DX: L95.9 Vasculitis limited to the skin, unspecified (principal); E11.622 Type 2 diabetes mellitus with other skin ulcer; L97.811 Non-pressure chronic ulcer of other part of right lower leg limited to breakdown of skin; L97.821 Non-pressure chronic ulcer of other part of left lower leg limited to breakdown of skin; R60.0 Localized edema; I77.6 Arteritis, unspecified
CPT/HCPCS: 11042; 87070; 87075; 87077; 87186; 87205; 99213

== ENCOUNTER → 2019-06-24 11:00 | Outpatient (CLI) | payer OTHER, SELFPAY ==
[2018-03-15 14:45] VITALS: BMI 54.1
== END ==
LOC: WC 11:01
PROVIDERS: PCP Family Medicine; Referring Provider Family Medicine; Visit Provider Family Medicine
DX: I77.6 Arteritis, unspecified (principal); E11.621 Type 2 diabetes mellitus with foot ulcer; L95.9 Vasculitis limited to the skin, unspecified; L97.511 Non-pressure chronic ulcer of other part of right foot limited to breakdown of skin; L97.521 Non-pressure chronic ulcer of other part of left foot limited to breakdown of skin; E11.43 Type 2 diabetes mellitus with diabetic autonomic (poly)neuropathy
CPT/HCPCS: 11042; 99214

== ENCOUNTER → 2019-07-01 10:56 | Outpatient (CLI) | payer OTHER, SELFPAY ==
[2018-03-15 14:45] VITALS: BMI 54.1
== END ==
PROVIDERS: PCP Family Medicine; Referring Provider Family Medicine; Visit Provider Family Medicine
DX: L95.9 Vasculitis limited to the skin, unspecified (principal); E11.621 Type 2 diabetes mellitus with foot ulcer; L97.511 Non-pressure chronic ulcer of other part of right foot limited to breakdown of skin; L97.811 Non-pressure chronic ulcer of other part of right lower leg limited to breakdown of skin; L97.821 Non-pressure chronic ulcer of other part of left lower leg limited to breakdown of skin; I77.6 Arteritis, unspecified; E11.43 Type 2 diabetes mellitus with diabetic autonomic (poly)neuropathy; E11.622 Type 2 diabetes mellitus with other skin ulcer; M79.671 Pain in right foot; L84 Corns and callosities
CPT/HCPCS: 11055; 97597

== ENCOUNTER → 2019-07-08 11:26 | Outpatient (CLI) | payer OTHER, SELFPAY ==
[2018-03-15 14:45] VITALS: BMI 54.1
== END ==
PROVIDERS: PCP Family Medicine; Referring Provider Family Medicine; Visit Provider Family Medicine
DX: E11.622 Type 2 diabetes mellitus with other skin ulcer (principal); L95.9 Vasculitis limited to the skin, unspecified; L97.511 Non-pressure chronic ulcer of other part of right foot limited to breakdown of skin; L97.811 Non-pressure chronic ulcer of other part of right lower leg limited to breakdown of skin; L97.821 Non-pressure chronic ulcer of other part of left lower leg limited to breakdown of skin; I77.6 Arteritis, unspecified; E11.43 Type 2 diabetes mellitus with diabetic autonomic (poly)neuropathy; R60.0 Localized edema
CPT/HCPCS: 97597; 99213

== ENCOUNTER → 2019-07-15 09:30 | Outpatient (CLI) | payer OTHER, SELFPAY ==
[2018-03-15 14:45] VITALS: BMI 54.1
== END ==
LOC: WC 09:31
PROVIDERS: PCP Family Medicine; Referring Provider Family Medicine; Visit Provider Family Medicine
DX: I77.6 Arteritis, unspecified (principal); L97.911 Non-pressure chronic ulcer of unspecified part of right lower leg limited to breakdown of skin; L97.821 Non-pressure chronic ulcer of other part of left lower leg limited to breakdown of skin; L95.9 Vasculitis limited to the skin, unspecified; R77.9 Abnormality of plasma protein, unspecified; E11.43 Type 2 diabetes mellitus with diabetic autonomic (poly)neuropathy; L97.511 Non-pressure chronic ulcer of other part of right foot limited to breakdown of skin; L08.9 Local infection of the skin and subcutaneous tissue, unspecified
CPT/HCPCS: 11042; 29580; 87070; 87075; 87077; 87186; 87205; 97597; 99214

== ENCOUNTER → 2019-07-23 10:23 | Outpatient (CLI) | payer OTHER, SELFPAY ==
[2018-03-15 14:45] VITALS: BMI 54.1
== END ==
LOC: WC 10:23
PROVIDERS: PCP Family Medicine; Referring Provider Family Medicine; Visit Provider Family Medicine
DX: I77.6 Arteritis, unspecified (principal); L97.921 Non-pressure chronic ulcer of unspecified part of left lower leg limited to breakdown of skin; L97.811 Non-pressure chronic ulcer of other part of right lower leg limited to breakdown of skin; L95.9 Vasculitis limited to the skin, unspecified; R77.9 Abnormality of plasma protein, unspecified; E11.43 Type 2 diabetes mellitus with diabetic autonomic (poly)neuropathy; L97.511 Non-pressure chronic ulcer of other part of right foot limited to breakdown of skin; L03.115 Cellulitis of right lower limb
CPT/HCPCS: 11042; 87070; 87077; 87186; 87205; 99214

== ENCOUNTER → 2019-07-24 12:10 | Outpatient (CLI) | payer OTHER, SELFPAY ==
[2018-03-15 14:45] VITALS: BMI 54.1
== END ==
LOC: WC 12:10
PROVIDERS: PCP Family Medicine; Referring Provider Family Medicine; Visit Provider Family Medicine
DX: E11.621 Type 2 diabetes mellitus with foot ulcer (principal); L97.511 Non-pressure chronic ulcer of other part of right foot limited to breakdown of skin
CPT/HCPCS: 99213

== ENCOUNTER → 2019-07-30 08:55 | Outpatient (CLI) | payer OTHER, SELFPAY ==
[2018-03-15 14:45] VITALS: BMI 54.1
== END ==
PROVIDERS: PCP Family Medicine; Referring Provider Family Medicine; Visit Provider Family Medicine
DX: I77.6 Arteritis, unspecified (principal); L97.921 Non-pressure chronic ulcer of unspecified part of left lower leg limited to breakdown of skin; L97.811 Non-pressure chronic ulcer of other part of right lower leg limited to breakdown of skin; L95.9 Vasculitis limited to the skin, unspecified; R77.9 Abnormality of plasma protein, unspecified; E11.43 Type 2 diabetes mellitus with diabetic autonomic (poly)neuropathy; L97.511 Non-pressure chronic ulcer of other part of right foot limited to breakdown of skin; L03.115 Cellulitis of right lower limb
CPT/HCPCS: 11042; 99213

== ENCOUNTER → 2019-08-06 10:03 | Outpatient (CLI) | payer OTHER, SELFPAY ==
[2018-03-15 14:45] VITALS: BMI 54.1
== END ==
PROVIDERS: PCP Family Medicine; Referring Provider Family Medicine; Visit Provider Family Medicine
DX: I77.6 Arteritis, unspecified (principal); L97.921 Non-pressure chronic ulcer of unspecified part of left lower leg limited to breakdown of skin; L97.811 Non-pressure chronic ulcer of other part of right lower leg limited to breakdown of skin; L95.9 Vasculitis limited to the skin, unspecified; R77.9 Abnormality of plasma protein, unspecified; E11.43 Type 2 diabetes mellitus with diabetic autonomic (poly)neuropathy; L97.515 Non-pressure chronic ulcer of other part of right foot with muscle involvement without evidence of necrosis; R11.0 Nausea
CPT/HCPCS: 11042; 29580; 99213

== ENCOUNTER → 2019-08-13 08:47 | Outpatient (CLI) | payer OTHER, SELFPAY ==
[2018-03-15 14:45] VITALS: BMI 54.1
== END ==
PROVIDERS: PCP Family Medicine; Referring Provider Family Medicine; Visit Provider Family Medicine
DX: I77.6 Arteritis, unspecified (principal); L97.921 Non-pressure chronic ulcer of unspecified part of left lower leg limited to breakdown of skin; L97.211 Non-pressure chronic ulcer of right calf limited to breakdown of skin; L97.811 Non-pressure chronic ulcer of other part of right lower leg limited to breakdown of skin; L95.9 Vasculitis limited to the skin, unspecified; R77.9 Abnormality of plasma protein, unspecified; E11.43 Type 2 diabetes mellitus with diabetic autonomic (poly)neuropathy; L97.515 Non-pressure chronic ulcer of other part of right foot with muscle involvement without evidence of necrosis
CPT/HCPCS: 11042; 11045; 87070; 87075; 87077; 87186; 87205

== ENCOUNTER → 2019-08-20 10:23 | Outpatient (CLI) | payer OTHER, SELFPAY ==
[2018-03-15 14:45] VITALS: BMI 54.1
== END ==
PROVIDERS: PCP Family Medicine; Referring Provider Family Medicine; Visit Provider Family Medicine
DX: I77.6 Arteritis, unspecified (principal); L97.921 Non-pressure chronic ulcer of unspecified part of left lower leg limited to breakdown of skin; L97.811 Non-pressure chronic ulcer of other part of right lower leg limited to breakdown of skin; L97.211 Non-pressure chronic ulcer of right calf limited to breakdown of skin; L95.9 Vasculitis limited to the skin, unspecified; R77.9 Abnormality of plasma protein, unspecified; E11.43 Type 2 diabetes mellitus with diabetic autonomic (poly)neuropathy; L97.515 Non-pressure chronic ulcer of other part of right foot with muscle involvement without evidence of necrosis
CPT/HCPCS: 29580; 99213

== ENCOUNTER → 2019-08-28 12:09 | Outpatient (CLI) | payer OTHER, SELFPAY ==
[2018-03-15 14:45] VITALS: BMI 54.1
== END ==
LOC: WC 12:09
PROVIDERS: PCP Family Medicine; Referring Provider Family Medicine; Visit Provider Family Medicine
DX: S81.801A Unspecified open wound, right lower leg, initial encounter (principal); S81.802A Unspecified open wound, left lower leg, initial encounter; E11.621 Type 2 diabetes mellitus with foot ulcer; L97.515 Non-pressure chronic ulcer of other part of right foot with muscle involvement without evidence of necrosis
CPT/HCPCS: 29580

== ENCOUNTER → 2019-09-04 11:17 | Outpatient (CLI) | payer OTHER, SELFPAY ==
[2018-03-15 14:45] VITALS: BMI 54.1
== END ==
LOC: WC 11:17
PROVIDERS: PCP Family Medicine; Referring Provider Family Medicine; Visit Provider Family Medicine
DX: I77.6 Arteritis, unspecified (principal); L97.921 Non-pressure chronic ulcer of unspecified part of left lower leg limited to breakdown of skin; L97.811 Non-pressure chronic ulcer of other part of right lower leg limited to breakdown of skin; L97.211 Non-pressure chronic ulcer of right calf limited to breakdown of skin; L95.9 Vasculitis limited to the skin, unspecified; R77.9 Abnormality of plasma protein, unspecified; L08.9 Local infection of the skin and subcutaneous tissue, unspecified; B95.2 Enterococcus as the cause of diseases classified elsewhere
CPT/HCPCS: 11042; 97597; 97598; 99212; 99214

== ENCOUNTER 2019-09-05 09:44 | Emergency (ER) | payer OTHER, SELFPAY ==
[2018-03-15 14:45] VITALS: BMI 54.1
[2019-09-05 09:59] VITALS: BP 164/111; PULSE 115; RESP 18; TEMP 36.8; O2SAT 98; BMI 35.8
--- NOTE | 2019-09-05 10:09 | ED.GENADULT ---
HPI - General Adult General Chief complaint: Diabetic Problem Stated complaint: Vomiting, sugar is high Time Seen by Provider: 09/05/19 09:55 Source: patient Mode of arrival: Family Vehicle Limitations: no limitations History of Present Illness HPI narrative: Patient is a 49-year-old insulin-dependent diabetic presenting with nausea and elevated glucose. He said starting yesterday he was not feeling great. He just has overall felt nauseous he threw up 3 times this morning he has some vague abdominal discomfort but no real localization pain. He denies any diarrhea and no chest pain shortness of breath fever or chills. He did notice yesterday that Gatorade tasted funny, but has no other changes in taste or smell. Onset (ago): day(s) Related Data Home Medications Medication Instructions Recorded Confirmed amlodipine 10 mg PO DAILY 03/14/18 09/05/19 carvedilol 25 mg PO 1300 03/14/18 09/05/19 lisinopril 40 mg PO DAILY 03/14/18 09/05/19 metformin 1,000 mg PO BID 03/14/18 09/05/19 chlorthalidone 25 mg PO DAILY 03/15/18 03/15/18 glipizide 10 mg PO BID 03/15/18 03/15/18 Previous Rx's Medication Instructions Recorded ondansetron 4 mg PO Q8H PRN #10 tab 09/05/19 Allergies Allergy/AdvReac Type Severity Reaction Status Date / Time No Known Drug Allergies Allergy Verified 09/05/19 10:04 Review of Systems Review of Systems Narrative: GENERAL: Denies chills, fatigue, malaise, fever, sweats, travel HEENT: Change in smell Denies sinus pain, ear pain, sore throat, difficulty swallowing, neck pain RESPIRATORY: Denies dyspnea, cough, wheezing, hemoptysis, sputum. CARDIOVASCULAR: Denies chest pain, palpitations, orthopnea, edema GASTROINTESTINAL: See HPI : Denies dysuria, frequency, incontinence, hematuria, urinary retention, flank pain. MUSCULOSKELETAL: Denies weakness, joint pain, or bony pain SKIN: No rash, no erythema, no pruritus NEUROLOGIC: Denies weakness, dizziness, headache, numbness, change in speech, confusion PSYCHIATRIC: No concerning psychosocial issues. 12 point review of systems is negative except for those stated above and HPI Patient History Medical History Congestive heart failure (Acute) Diabetes (Acute) Diabetes mellitus (Acute) Surgical History No pertinent past surgical history (Acute) Social History household members: spouse and children Smoking Status: Former smoker alcohol intake: never Smoking Status: Former smoker alcohol intake frequency: 0-2 drinks per day Substance Use Type: marijuana Exam Initial Vital Signs Initial Vital Signs: Vital Signs Temperature 98.2 F 09/05/19 09:59 Pulse Rate 115 H 09/05/19 09:59 Respiratory Rate 18 09/05/19 09:59 Blood Pressure 164/111 H 09/05/19 09:59 Pulse Oximetry 98 09/05/19 09:59 GENERAL: Well-appearing, well-nourished and in no acute distress. HEENT: Head atraumatic,EOMI, pupils reactive, face symmetric, moist mucous membranes CARDIOVASCULAR: Regular rate and rhythm without murmurs, rubs or gallops. RESPIRATORY: Breath sounds equal bilaterally, no wheezes rales or rhonchi. ABDOMEN: Soft, nontender. Normoactive bowel sounds all 4 quadrants. No guarding or rebound. : No CVA tenderness EXTREMITIES: Normal range of motion, no clubbing or edema. Neurovascularly intact NEUROLOGICAL: Alert and oriented x4.Normal gait and speech. SKIN: Warm, dry, no laceration, no petechiae, no rashes or lesions. Course Orders Ordered: ED Orders 09/05/19 09:55 Complete Blood Count AUTO DIFF Stat Comprehensive Metabolic Panel Stat Ketones (Beta-Hydroxybutyrate) Stat Lactate (Lactic Acid) Stat Lipase Stat Troponin & CK Cardiac Panel Stat 09/05/19 10:12 Urine Culture Stat Urine Microscopic Stat 09/05/19 10:26 EKG-12 Lead Stat Discontinued Medications Sodium Chloride (Normal Saline 0.9%) 1,000 mls @ 150 mls/hr IV CONT SASKIA Last Infusion: 09/05/19 12:06 Dose: 0 mls/hr Documented by: Admin: 09/05/19 10:11 Dose: 150 mls/hr Documented by: NARINDER Ondansetron HCl (Zofran) 4 mg IV NOW ONE Stop: 09/05/19 10:04 Last Admin: 09/05/19 10:10 Dose: 4 mg Documented by: NARINDER Vital Signs Vital signs: Vital Signs - 8 hr 09/05/19 09:59 09/05/19 10:15 09/05/19 10:17 Temperature 98.2 F Pulse Rate 115 H 104 H 101 H Respiratory Rate 18 Blood Pressure 164/111 H 164/105 H Pulse Oximetry 98 98 09/05/19 10:30 09/05/19 11:00 09/05/19 11:30 Temperature Pulse Rate 93 H 88 91 H Respiratory Rate 16 17 Blood Pressure 157/91 H 168/103 H Pulse Oximetry 94 96 95 Medical Decision Making Lab Data Result diagrams: 09/05/19 09:55 09/05/19 09:55 Labs: Lab Results 09/05/19 09/05/19 09/05/19 Range/Units 09:55 09:55 09:55 WBC 9.4 (4.5-11.0) X10^3/uL RBC 6.30 H (4.5-5.9) X10^6/uL Hgb 18.3 H (13.5-17.5) g/dL Hct 52.9 (41-53) % MCV 83.9 (80-100) fL MCH 29.0 (26-34) PG MCHC 34.5 (30-36) % RDW 13.7 (11.6-14.8) % Plt Count 273 (150-400) X10^3/uL Neut % (Auto) 74.6 (50-75) % Lymph % (Auto) 18.6 L (25-40) % [place] % (Auto) 6.3 (3-14) % Eos % (Auto) 0.2 L (2-4) % Baso % (Auto) 0.3 (0-2) % Neut # (Auto) 7000 (2887-8860) /uL Lymph # (Auto) 1700 (5242-4545) /uL [place] # (Auto) 600 (0-900) /uL Eos # (Auto) 0 (0-450) /uL Baso # (Auto) 0 (0-100) /uL Sodium 135 L (137-145) mmol/L Potassium 3.8 (3.4-5.1) mmol/L Chloride 95 L (98-107) mmol/L Carbon Dioxide 27 (22-32) mmol/L BUN 25 H (9-20) mg/dL Creatinine 0.94 (0.66-1.25) mg/dL Estimated GFR > 60.0 (>60) mL/min BUN/Creatinine Ratio 26.6 H (6-22) Glucose 371 H (70-100) mg/dL Lactate 2.3 H (0.7-2.1) mmol/L Calcium 9.8 (8.4-10.2) mg/dL Total Bilirubin 1.5 H (0.2-1.3) mg/dL AST 46 (17-59) IU/L ALT 46 (<50) IU/L Alkaline Phosphatase 80 (38-126) U/L Total Creatine Kinase (55-170) U/L CK-MB (CK-2) (<2.37) ng/mL CK-MB (CK-2) Rel Index (1.5-5.0) % Troponin I (0.01-0.034) ng/mL Total Protein 8.8 H (6.3-8.2) g/dL Albumin 4.7 (3.5-5.0) g/dL Globulin 4.1 (1.7-4.1) g/dL Albumin/Globulin Ratio 1.1 (1.0-2.8) Lipase 137 (23-300) U/L Urine RBC (0-5/HPF) Urine WBC (0-5/HPF) Urine Bacteria (None) Ur Culture Indicated? Ketones 1.79 H (<0.27) mmol/L 09/05/19 09/05/19 Range/Units 09:55 10:12 WBC (4.5-11.0) X10^3/uL RBC (4.5-5.9) X10^6/uL Hgb (13.5-17.5) g/dL Hct (41-53) % MCV (80-100) fL MCH (26-34) PG MCHC (30-36) % RDW (11.6-14.8) % Plt Count (150-400) X10^3/uL Neut % (Auto) (50-75) % Lymph % (Auto) (25-40) % [place] % (Auto) (3-14) % Eos % (Auto) (2-4) % Baso % (Auto) (0-2) % Neut # (Auto) (4532-3277) /uL Lymph # (Auto) (9879-8057) /uL [place] # (Auto) (0-900) /uL Eos # (Auto) (0-450) /uL Baso # (Auto) (0-100) /uL Sodium (137-145) mmol/L Potassium (3.4-5.1) mmol/L Chloride (98-107) mmol/L Carbon Dioxide (22-32) mmol/L BUN (9-20) mg/dL Creatinine (0.66-1.25) mg/dL Estimated GFR (>60) mL/min BUN/Creatinine Ratio (6-22) Glucose (70-100) mg/dL Lactate (0.7-2.1) mmol/L Calcium (8.4-10.2) mg/dL Total Bilirubin (0.2-1.3) mg/dL AST (17-59) IU/L ALT (<50) IU/L Alkaline Phosphatase (38-126) U/L Total Creatine Kinase 137 (55-170) U/L CK-MB (CK-2) 2.07 (<2.37) ng/mL CK-MB (CK-2) Rel Index 1.5 (1.5-5.0) % Troponin I < 0.012 (0.01-0.034) ng/mL Total Protein (6.3-8.2) g/dL Albumin (3.5-5.0) g/dL Globulin (1.7-4.1) g/dL Albumin/Globulin Ratio (1.0-2.8) Lipase (23-300) U/L Urine RBC None seen (0-5/HPF) Urine WBC 5-10/hpf H (0-5/HPF) Urine Bacteria None seen (None) Ur Culture Indicated? Specimen cultured Ketones (<0.27) mmol/L Point of Care Testing Glucose POC 316 Urine Dip Bedside Urine Glucose 1000 mg/dl Bedside Urine Bilirubin - Negative Bedside Urine Ketone +++ 80 Urine Specific [place] 1.025 Bedside Urine Occult Blood +/- Bedside Urine pH 6.0 Bedside Urine Protein ++ 100 Bedside Urine Urobilinogen - Negative Bedside Urine Nitrite - Negative Bedside Urine Leukocytes - Negative Esterase Point of care testing: Point of Care Testing Glucose POC 316 Urine Dip Bedside Urine Glucose 1000 mg/dl Bedside Urine Bilirubin - Negative Bedside Urine Ketone +++ 80 Urine Specific [place] 1.025 Bedside Urine Occult Blood +/- Bedside Urine pH 6.0 Bedside Urine Protein ++ 100 Bedside Urine Urobilinogen - Negative Bedside Urine Nitrite - Negative Bedside Urine Leukocytes - Negative Esterase ECG Data Attestation: I personally reviewed and interpreted this ECG as follows: Prior ECG tracings: available for review Interpretation: Normal sinus rhythm rate 88 p.r. interval 166 you are S1 [address] changes similar to previous EKG MDM Narrative Medical decision making narrative: Anion Gap 13 Patient shows no sign of DKA but does have ketones. At this time will do outpatient covid test. Self quarantine until results are back. He is tolerating oral fluids. Abdomen remains soft no need for imaging at this time. Discharge Plan Departure Patient Disposition: Home Clinical Impression: Acute hyperglycemia Discharge Date/Time: 09/05/19 12:12 Instructions: DI for Diabetes Type 2 Activity Restrictions/Additional Instructions: *You have been diagnosed with hyperglycemia *What to do: At this time glucose is noted to be slightly elevated but no other abnormalities. Please follow self isolation instructions below. You were tested for COVID-19 today the results may take up to 7 days *Continue to take medications as directed Zofran 4 mg every 8 hours if needed for nausea or vomiting [facility]ENT [facility] [place] *Follow up with your primary care provider in 2-3 days *Return to ER if you should have to worsening shortness of breath, abdominal pain that worsens, persistent vomiting, fever or any new, worsening or concerning symptoms CDC Guidelines for home isolation: - Stay away from others - Limit contact with pets and animals: If you must care for a pet, wash your hands before and after interacting with them - Wear a mask if you are sick - Cover your mouth and nose with a tissue when you cough or sneeze. Dispose of tissues in a lined trash can and wash your hands immediately with soap and water for at least 20 seconds. If soap and water are not available, clean hands with alcohol-based hand supervisor pastry that contains at least 60% alcohol. - Clean your hands often with soap and water for at least 20 seconds - Avoid touching your eyes, nose and mouth with unwashed hands - Do not share dishes, drinking glasses, cups, eating utensils, towels, or bedding with other people in your home. After using these items, wash them thoroughly with soap and water or put in the glass blowing instructor. - Clean high-touch surfaces in your isolation area (?sick room? and bathroom) every day; let a caregiver clean and disinfect high-touch surfaces in other areas of the home. Clean the area or item with soap and water or another detergent if it is dirty. Then, use a household disinfectant. Seek medical attention, but call first: - Seek medical care right away if your illness is worsening (for example, if you have difficulty breathing). - Call your doctor before going in: Before going to the doctor?s office or emergency room, call ahead and tell them your symptoms. They will tell you what to do. - If possible, put on a facemask before you enter the building. If you can?t put on a facemask, try to keep a safe distance from other people (at least 6 feet away). This will help protect the people in the office or waiting room. - Follow care instructions from your healthcare provider and local health department: Your local health authorities will give instructions on checking your symptoms and reporting information. Emergency warning signs for COVID-19: - Difficulty breathing or shortness of breath - Persistent pain or pressure in the chest - New confusion or inability to arouse - Bluish lips or face Prescriptions: New ondansetron 4 mg tablet,disintegrating 4 mg PO Q8H PRN (Reason: nausea and vomiting) Qty: 10 RF: 0 No Action metformin 500 mg Tablet 1,000 mg PO BID RF: 0 carvedilol 25 mg Tablet 25 mg PO 1300 RF: 0 amlodipine 10 mg Tablet 10 mg PO DAILY RF: 0 lisinopril 40 mg Tablet 40 mg PO DAILY RF: 0 glipizide 10 mg tablet 10 mg PO BID RF: 0 chlorthalidone 25 mg tablet 25 mg PO DAILY RF: 0 Referrals: Delvin Keller MD [Primary Care Provider] -
[2019-09-05] MEDS: ONDANSETRON 4 MG/2 ML INJ IV (10:10)
[2019-09-05] MEDS: SODIUM CHLORIDE 0.9% 1,000 ML 150 ML IV (10:11)
[2019-09-05 10:12] LABS: Add Manual Diff / Slide Review NO; Basophils Absolute Auto 0 /uL (0-100); Basophils Percent Auto 0.3 % (0-2); Eosinophils Absolute Auto 0 /uL (0-450); Eosinophils Percent Auto 0.2 % (2-4); Hematocrit 52.9 % (41-53); Hemoglobin 18.3 g/dL (13.5-17.5); Lymphocytes Absolute Auto 1700 /uL (1100-4500); Lymphocytes Percent Auto 18.6 % (25-40); Mean Corpuscular HGB Conc 34.5 % (30-36); Mean Corpuscular Volume 83.9 fL (80-100); Monocytes Absolute Auto 600 /uL (0-900); Monocytes Percent Auto 6.3 % (3-14); Neutrophils Absolute Auto 7000 /uL (1500-7000); Neutrophils Percent Auto 74.6 % (50-75); Platelet Count 273 X10^3/uL (150-400); Red Cell Distribution Width 13.7 % (11.6-14.8); White Blood Cell Count 9.4 X10^3/uL (4.5-11.0)
[2019-09-05 10:15] VITALS: PULSE 104
[2019-09-05 10:17] VITALS: BP 164/105; PULSE 101; O2SAT 98
[2019-09-05 10:18] LABS: Bacteria Urine None Seen; RBC Urine None Seen (0-5/HPF)
[2019-09-05 10:18] LABS: Alanine Aminotransferase 46 IU/L (<50); Albumin 4.7 g/dL (3.5-5.0); Albumin Globulin Ratio 1.1 (1.0-2.8); Alkaline Phosphatase 80 U/L (38-126); Aspartate Aminotransferase 46 IU/L (17-59); BUN Creatinine Ratio 26.6 (6-22); Bilirubin Total 1.5 mg/dL (0.2-1.3); Blood Urea Nitrogen 25 mg/dL (9-20); Calcium 9.8 mg/dL (8.4-10.2); Carbon Dioxide 27 mmol/L (22-32); Chloride 95 mmol/L (98-107); Estimated Glomerular Filt Rate > 60.0 mL/min (>60); Globulin 4.1 g/dL (1.7-4.1); Glucose 371 mg/dL (70-100); Lipase 137 U/L (23-300); Potassium 3.8 mmol/L (3.4-5.1); Sodium 135 mmol/L (137-145); Total Protein 8.8 g/dL (6.3-8.2)
[2019-09-05 10:19] LABS: Lactate (Lactic Acid) 2.3 mmol/L (0.7-2.1)
[2019-09-05 10:26] LABS: Culture Indicated Urine Specimen Cultured; WBC Urine 5-10/HPF (0-5/HPF)
[2019-09-05 10:30] VITALS: BP 157/91; PULSE 93; O2SAT 94
[2019-09-05 10:59] LABS: Creatine Kinase 137 U/L (55-170)
[2019-09-05 11:00] VITALS: BP 168/103; PULSE 88; RESP 16; O2SAT 96
[2019-09-05 11:04] LABS: HEMOLYSIS 18 (0-50); Ketones (Beta-Hydroxybutyrate) 1.79 mmol/L (<0.27)
[2019-09-05 11:12] LABS: Troponin I < 0.012 ng/mL (0.01-0.034)
[2019-09-05 11:15] LABS: CKMB % Relative Index 1.5 % (1.5-5.0); Creatine Kinase MB 2.07 ng/mL (<2.37)
[2019-09-05 11:30] VITALS: PULSE 91; RESP 17; O2SAT 95
[2019-09-05 12:09] LABS: Reflexed Lactate in 2 Hours Y
[2019-09-05 13:07] LABS: COVID19 -Nasal RAPID Negative (Negative)
== END 2019-09-05 12:12 | disposition home or self-care (01) ==
PROVIDERS: Emergency Provider Emergency Medicine; PCP Family Medicine
DX: E11.65 Type 2 diabetes mellitus with hyperglycemia (principal); R11.2 Nausea with vomiting, unspecified; R10.9 Unspecified abdominal pain; Z03.818 Encounter for observation for suspected exposure to other biological agents ruled out
CPT/HCPCS: 36415; 80053; 81003; 81015; 82009; 82550; 82553; 82962; 83605; 83690; 84484; 85025; 87086; 87635; 93005; 96361; 96374; 99284; J2405

== ENCOUNTER 2019-09-06 07:12 | Observation (INO) | payer OTHER, SELFPAY ==
[2018-03-15 14:45] VITALS: BMI 54.1
[2019-09-06] VITALS (23 sets, daily range): BP systolic 138–207; BP diastolic 91–123; PULSE 77–115; RESP 13–20; TEMP 36.6–37.3; O2SAT 95–100; BMI 36.9
--- NOTE | 2019-09-06 07:39 | ED_ITS ---
HPI - Nausea/Vomiting/Diarrhea General Chief complaint: Nausea/Vomiting/Diarrhea Stated complaint: vomiting, fatigue, nausea Time Seen by Provider: 09/06/19 07:23 Source: patient Mode of arrival: Family Vehicle Limitations: no limitations History of Present Illness HPI Narrative: CC: Nausea, vomiting, Fatigue and weakness HPI: The patient is a 49-year-old male who was a type 2 diabetic who was seen yesterday in the emergency department and discharged home presents today with persistent recurrent nausea and vomiting associated with abdominal cramps fatigue and weakness. Remain he states that he is unable to keep anything down. He denies any pain and discomfort other than stomach cramps. He has had no diarrhea with a normal bowel movement. His last bowel movement was the night before yesterday. He denies any melena hematochezia hematemesis coffee-ground emesis. He has had no history of of pancreatitis. He admits to history of type 2 diabetes mellitus hypertension congestive heart failure but denies myocardial infarction or stroke. Patient states that he has chronic stasis dermatitis with ulcers over his legs for which she is seen by the wound clinic in both of his lower legs are wrapped. He does not smoke cigarettes drink alcohol but smokes marijuana. Today the patient states that he has been vomiting numerous times and has been unable to keep anything down including water. He denies any bilious emesis. The patient denies any abdominal surgery. Yesterday he was hyperglycemia 3 episodes of vomiting with no localizing abdominal pain discharged home to return today with progressively worsening symptoms. He denies any fever but has had intermittent chills and sweats with shivering. He has a mild headache without any numbness tingling paresthesias or anesthesia the headache is generalized. He has had no loss of vision diplopia nasal drainage sinus congestion sore throat chest pain cough shortness of breath palpitations but has been dizzy and lightheaded but does not feel as though he is going to pass out. He has had no back pain no urinary symptoms frequency or urgency. Related Data Home Medications Medication Instructions Recorded Confirmed amlodipine 10 mg PO DAILY 03/14/18 09/06/19 carvedilol 25 mg PO 1300 03/14/18 09/06/19 lisinopril 40 mg PO DAILY 03/14/18 09/06/19 metformin 1,000 mg PO BID 02/07/19 08/01/20 chlorthalidone 25 mg PO DAILY 03/15/18 09/06/19 glipizide 10 mg PO BID 03/15/18 09/06/19 Previous Rx's Medication Instructions Recorded ondansetron 4 mg PO Q8H PRN #10 tab 09/05/19 Allergies Allergy/AdvReac Type Severity Reaction Status Date / Time No Known Drug Allergies Allergy Verified 09/05/19 10:04 Review of Systems Review of Systems Narrative: His review of systems were all negative except for those mentioned in the history of present illness. Patient History Medical History (Updated 09/07/19 @ 00:09 by DEDE Urena) Congestive heart failure (Acute) Diabetes mellitus (Acute) Hypertension (Acute) Ulcer of left lower leg (Inactive) Ulcer of right leg (Inactive) Surgical History (Updated 09/07/19 @ 00:10 by DEDE Urena) History of foot surgery (Acute) Family History (Updated 09/07/19 @ 00:11 by DEDE Urena) Father Myocardial infarction Mother Diabetes mellitus Brother Diabetes mellitus Social History household members: spouse and children Smoking Status: Former smoker alcohol intake: never Smoking Status: Former smoker alcohol intake frequency: 0-2 drinks per day Substance Use Type: marijuana Exam Narrative Exam Narrative: PHYSICAL EXAM: CONSTITUTIONAL: Awake, Alert, Oriented, Coherent, Cooperative in moderate distress holds his eyes closed appear sick and ill. Heart rate is 108 blood pressure is 189/110. HEAD: AT/NC EENT: PERRL, FROM of eyes, no discharge, no nystagmus, no conjunctival pallor, no icterus NOSE:No epistaxis or nasal drainage MOUTH:Oral mucosa is moist and pink, posterior pharynx is without erythema or exudate. NECK: Supple, no obvious JVD, Trachea is midline without stridor,. SPINE: Palpationof the cervical, Thoracic, Lumbar or Sacral spine reveals no gross deformity or tenderness. No CVA tenderness. THORAX: No deformity, retractions, chest wall tenderness. LUNGS: Clear, symmetrical breath sounds without respiratory distress. HEART: Regular rhythm with tachycardia no appreciable murmur heart tones appear normal ABDOMEN: Soft, non-tender, normal bowel sounds without guarding, rebound, rigidity or palpable mass. EXTREMITIES: Both legs are wrapped with what appears to be Coban/Unna boot all the way up to the knees. SKIN: No rash, bruising, petechiae or purpura. NEURO: Awake, alert, oriented, conversive, cranial nerves II-XII are symmetrical , moves all 4 extremities and is ambulatory. MENTAL HEALTH: Appears ill and depressed Initial Vital Signs Initial Vital Signs: Vital Signs Temperature 98.4 F 09/06/19 07:24 Pulse Rate 110 H 09/06/19 07:24 Respiratory Rate 20 09/06/19 07:24 Blood Pressure 179/110 H 09/06/19 07:24 Pulse Oximetry 99 09/06/19 07:24 Course Course Course Narrative: 0824: The patient's anion gap is borderline at 15 lactic acid is borderline elevated at 2.5 glucose is 354 GFR is greater than 60. The patient will be administered the 2nd L of normal saline and 10 units of regular insulin. The patient's ketones are elevated at 2.43 compared to 1.79 yesterday. 0900: In cleansing the wound Steri-Strips were used to hold the skin down in place. 0948: The patient informed the nurses when he arrived that he did not Wanna go home. He did not feel well and got progressively worse ever since he was discharged yesterday. My review of the patient's x-rays reveal normal chest x- ray without any acute air-fluid levels free air or intra-abdominal pathology evident on plain x-rays of the abdomen. I will call and discuss the patient with the hospitalist Dr. Garcia to admit observation status. 1017: I discussed the patient with Dr. Garcia who agreed to admit the patient observation status on telemetry. However she requested a hemoglobin A1c and a CT of the abdomen with contrast. 1020: The patient's venous pH was 7.366 pCO2 49.5 bicarb 28.4 total CO2 30 1117: The patient has been admitted to the floor. CT of his abdomen and pelvis with IV contrast revealed; IMPRESSION: No imaging explanation is found for this patient's presenting symptoms. Incidental note is made of: Fatty liver infiltration Diverticulosis, without active diverticulitis Fat containing bilateral inguinal hernias Normal appendix Levoconvex scoliotic curvature Premature bony degenerative change Dictated by: Carlos Eduardo Barr M.D. on 09/06/2019 at 10:00 Approved by: Carlos Eduardo Barr M.D. on 09/06/2019 at 10:03 Orders Ordered: Acetaminophen (Tylenol) 650 mg PO Q6HR PRN PRN Reason: Fever/Mild Pain (1-3) Amlodipine Besylate (Norvasc) 10 mg PO DAILY [facility] Last Admin: 09/07/19 09:52 Dose: 10 mg Documented by: VICTORIA Amoxicillin/Clavulanate Potassium (Augmentin 875-125 Mg) 1 tab PO BID [facility] Last Admin: 09/07/19 09:52 Dose: 1 tab Documented by: Admin: 09/06/19 21:47 Dose: 1 tab Documented by: JIMBO Bisacodyl (Dulcolax) 10 mg NH DAILY PRN PRN Reason: Constipation Calcium Carbonate (Tums) 1,000 mg PO Q4HR PRN PRN Reason: Dyspepsia Carvedilol (Coreg) 25 mg PO 1300 [facility] Last Admin: 09/07/19 13:19 Dose: 25 mg Documented by: Admin: 09/06/19 21:32 Dose: 25 mg Documented by: JIMBO Dextrose (D50w) 25 gm IV PRN PRN; Protocol PRN Reason: Hypoglycemia Heparin Sodium (Porcine) (Heparin) 5,000 unit SUBCUT BID [facility] Last Admin: 09/07/19 09:53 Dose: 5,000 unit Documented by: Admin: 09/06/19 21:32 Dose: 5,000 unit Documented by: JIMBO Insulin Aspart (Novolog Flexpen) 0 unit SUBCUT ACHS [facility]; Protocol Last Admin: 09/07/19 16:56 Dose: 3 unit Documented by: NICHOLAS Cosigned by: SRIRAM Admin: 09/07/19 11:59 Dose: 5 unit Documented by: VICTORIA Cosigned by: BALTAZAR Admin: 09/07/19 08:10 Dose: 3 unit Documented by: VICTORIA Cosigned by: KELECHI Admin: 09/07/19 00:05 Dose: 3 unit Documented by: ABBEY Cosigned by: RADHA Admin: 09/06/19 21:37 Dose: 3 unit Documented by: JIMBO Cosigned by: TAJ Admin: 09/06/19 17:15 Dose: 5 unit Documented by: JIMBO Cosigned by: TAJ Insulin Glargine (Lantus Solostar (Pen)) 10 unit SUBCUT BID [facility] Last Admin: 09/07/19 09:51 Dose: 10 unit Documented by: VICTORIA Cosigned by: MARIE Admin: 09/06/19 21:37 Dose: 10 unit Documented by: JIMBO Cosigned by: TAJ Labetalol HCl (Trandate) 10 mg IV Q4HR PRN PRN Reason: Hypertension Last Admin: 09/07/19 12:15 Dose: 10 mg Documented by: Admin: 09/06/19 14:27 Dose: 10 mg Documented by: JACKLYN Lisinopril (Zestril) 40 mg PO DAILY [facility] Last Admin: 09/07/19 09:53 Dose: 40 mg Documented by: VICTORIA Metoclopramide HCl (Reglan) 10 mg IV Q8HR PRN PRN Reason: Nausea And Vomiting Last Admin: 09/07/19 08:04 Dose: 10 mg Documented by: Admin: 09/06/19 21:45 Dose: 10 mg Documented by: JIMBO Naloxone HCl (Narcan) 0.2 mg IV Q2MIN PRN PRN Reason: Opiate Reversal Ondansetron HCl (Zofran) 4 mg IV Q4HR PRN PRN Reason: Nausea And Vomiting Last Admin: 09/07/19 16:09 Dose: 4 mg Documented by: NICHOLAS Pantoprazole Sodium (Protonix) 40 mg PO 0600 [facility] Last Admin: 09/07/19 06:03 Dose: 40 mg Documented by: ABBEY Sodium Chloride (Normal Saline 0.9% Flush) 10 ml IV PRN PRN PRN Reason: Flush Last Admin: 09/07/19 08:05 Dose: 10 ml Documented by: Admin: 09/06/19 13:23 Dose: 10 ml Documented by: JACKLYN Sodium Chloride (Normal Saline 0.9% Flush) 10 ml IV BID [facility] Last Admin: 09/07/19 09:53 Dose: 10 ml Documented by: Admin: 09/06/19 21:47 Dose: 10 ml Documented by: Admin: 09/06/19 11:56 Dose: 10 ml Documented by: BALTAZAR Discontinued Medications Sodium Chloride (Normal Saline 0.9%) 1,000 mls @ 1,000 mls/hr IV BOLUS ONE Stop: 09/06/19 08:36 Last Infusion: 09/06/19 09:21 Dose: 0 mls/hr Documented by: Admin: 09/06/19 07:47 Dose: 1,000 mls/hr Documented by: REBECA Sodium Chloride (Normal Saline 0.9%) 1,000 mls @ 1,000 mls/hr IV BOLUS ONE Stop: 09/06/19 09:21 Last Infusion: 09/06/19 10:15 Dose: 0 mls/hr Documented by: Admin: 09/06/19 08:34 Dose: 1,000 mls/hr Documented by: REBECA Sodium Chloride (Normal Saline 0.9%) 1,000 mls @ 75 mls/hr IV CONT SASKIA Last Admin: 09/07/19 12:10 Dose: 75 mls/hr Documented by: Infusion: 09/07/19 12:10 Dose: 75 mls/hr Documented by: Admin: 09/06/19 23:59 Dose: 75 mls/hr Documented by: Infusion: 09/06/19 23:56 Dose: 75 mls/hr Documented by: Infusion: 09/06/19 21:46 Dose: 75 mls/hr Documented by: Admin: 09/06/19 13:23 Dose: 100 mls/hr Documented by: JACKLYN Insulin Glargine (Lantus Solostar (Pen)) 15 unit SUBCUT BEDTIME [facility] Insulin Human Regular (Humulin R) 10 unit IV NOW ONE Stop: 09/06/19 08:23 Last Admin: 09/06/19 08:34 Dose: 10 unit Documented by: REBECA Cosigned by: NIELS Ondansetron HCl (Zofran) 4 mg IV NOW ONE Stop: 09/06/19 08:03 Last Admin: 09/06/19 08:06 Dose: 4 mg Documented by: REBECA Ondansetron HCl (Zofran) 4 mg IV Q6HR PRN PRN Reason: Nausea And Vomiting Prochlorperazine (Compazine) 10 mg IV Q6HR PRN PRN Reason: Nausea Last Admin: 09/06/19 11:56 Dose: 10 mg Documented by: BALTAZAR Promethazine HCl (Phenadoz) 12.5 mg NH Q6HR PRN PRN Reason: Nausea And Vomiting Vital Signs Vital signs: Vital Signs - 8 hr 09/06/19 07:24 09/06/19 07:40 09/06/19 08:00 Temperature 98.4 F Pulse Rate 110 H 98 H 115 H Respiratory Rate 20 18 Blood Pressure 179/110 H Pulse Oximetry 99 99 100 09/06/19 08:35 09/06/19 09:00 09/06/19 09:06 Temperature Pulse Rate 97 H 93 H 97 H Respiratory Rate 20 16 15 Blood Pressure 179/102 H Pulse Oximetry 97 95 97 09/06/19 09:30 09/06/19 10:00 09/06/19 10:02 Temperature Pulse Rate 87 88 93 H Respiratory Rate 16 15 13 Blood Pressure 196/103 H 207/122 H Pulse Oximetry 97 98 99 09/06/19 10:03 09/06/19 10:05 Temperature Pulse Rate 94 H 108 H Respiratory Rate 15 15 Blood Pressure 201/114 H 197/116 H Pulse Oximetry 99 99 MDM - Nausea/Vomiting/Diarrhea Medical Records Attestation: I reviewed the patient's medical records. Lab Data Attestation: I reviewed the patient's lab results. Result diagrams: 09/07/19 06:45 09/07/19 06:45 Labs: Lab Results 09/06/19 09/06/19 09/06/19 Range/Units 07:25 07:25 07:25 WBC 10.8 (4.5-11.0) X10^3/uL RBC 6.44 H (4.5-5.9) X10^6/uL Hgb 18.3 H (13.5-17.5) g/dL Hct 53.7 H (41-53) % MCV 83.4 (80-100) fL MCH 28.4 (26-34) PG MCHC 34.0 (30-36) % RDW 13.6 (11.6-14.8) % Plt Count 280 (150-400) X10^3/uL Neut % (Auto) 76.5 H (50-75) % Lymph % (Auto) 16.8 L (25-40) % Traill % (Auto) 6.3 (3-14) % Eos % (Auto) 0.2 L (2-4) % Baso % (Auto) 0.2 (0-2) % Neut # (Auto) 8200 H (0236-2160) /uL Lymph # (Auto) 1800 (1990-3667) /uL Traill # (Auto) 700 (0-900) /uL Eos # (Auto) 0 (0-450) /uL Baso # (Auto) 0 (0-100) /uL VBG pH (7.33-7.43) VBG pCO2 (45-50) mmHg VBG pO2 (35-45) mmHg VBG HCO3 (23-28) mmol/L VBG Total CO2 (24-29) mmol/L VBG O2 Saturation (70-75) % VBG Base Excess (0-4) mmol/L Sodium 135 L (137-145) mmol/L Potassium 3.8 (3.4-5.1) mmol/L Chloride 96 L (98-107) mmol/L Carbon Dioxide 24 (22-32) mmol/L BUN 30 H (9-20) mg/dL Creatinine 0.90 (0.66-1.25) mg/dL Estimated GFR > 60.0 (>60) mL/min BUN/Creatinine Ratio 33.3 H (6-22) Glucose 354 H (70-100) mg/dL Hemoglobin A1c (4.0-6.0) % Lactate 2.5 H (0.7-2.1) mmol/L Calcium 9.8 (8.4-10.2) mg/dL Magnesium (1.6-2.3) mg/dL Total Bilirubin 1.6 H (0.2-1.3) mg/dL AST 43 (17-59) IU/L ALT 45 (<50) IU/L Alkaline Phosphatase 78 (38-126) U/L Lactate Dehydrogenase 501 (313-618) U/L Total Creatine Kinase 113 (55-170) U/L CK-MB (CK-2) 1.79 (<2.37) ng/mL CK-MB (CK-2) Rel Index 1.6 (1.5-5.0) % Troponin I < 0.012 (0.01-0.034) ng/mL C-Reactive Protein (<1.0) mg/dL NT-Pro-B Natriuret Pep 57 (<125) pg/mL Total Protein 8.8 H (6.3-8.2) g/dL Albumin 4.7 (3.5-5.0) g/dL Globulin 4.1 (1.7-4.1) g/dL Albumin/Globulin Ratio 1.1 (1.0-2.8) Lipase 220 D (23-300) U/L Ketones (<0.27) mmol/L 09/06/19 09/06/19 09/06/19 Range/Units 07:25 07:25 07:25 WBC (4.5-11.0) X10^3/uL RBC (4.5-5.9) X10^6/uL Hgb (13.5-17.5) g/dL Hct (41-53) % MCV (80-100) fL MCH (26-34) PG MCHC (30-36) % RDW (11.6-14.8) % Plt Count (150-400) X10^3/uL Neut % (Auto) (50-75) % Lymph % (Auto) (25-40) % Traill % (Auto) (3-14) % Eos % (Auto) (2-4) % Baso % (Auto) (0-2) % Neut # (Auto) (5248-3968) /uL Lymph # (Auto) (9903-3818) /uL Traill # (Auto) (0-900) /uL Eos # (Auto) (0-450) /uL Baso # (Auto) (0-100) /uL VBG pH (7.33-7.43) VBG pCO2 (45-50) mmHg VBG pO2 (35-45) mmHg VBG HCO3 (23-28) mmol/L VBG Total CO2 (24-29) mmol/L VBG O2 Saturation (70-75) % VBG Base Excess (0-4) mmol/L Sodium (137-145) mmol/L Potassium (3.4-5.1) mmol/L Chloride (98-107) mmol/L Carbon Dioxide (22-32) mmol/L BUN (9-20) mg/dL Creatinine (0.66-1.25) mg/dL Estimated GFR (>60) mL/min BUN/Creatinine Ratio (6-22) Glucose (70-100) mg/dL Hemoglobin A1c (4.0-6.0) % Lactate (0.7-2.1) mmol/L Calcium (8.4-10.2) mg/dL Magnesium 1.8 (1.6-2.3) mg/dL Total Bilirubin (0.2-1.3) mg/dL AST (17-59) IU/L ALT (<50) IU/L Alkaline Phosphatase (38-126) U/L Lactate Dehydrogenase (313-618) U/L Total Creatine Kinase (55-170) U/L CK-MB (CK-2) (<2.37) ng/mL CK-MB (CK-2) Rel Index (1.5-5.0) % Troponin I (0.01-0.034) ng/mL C-Reactive Protein < 0.5 (<1.0) mg/dL NT-Pro-B Natriuret Pep (<125) pg/mL Total Protein (6.3-8.2) g/dL Albumin (3.5-5.0) g/dL Globulin (1.7-4.1) g/dL Albumin/Globulin Ratio (1.0-2.8) Lipase (23-300) U/L Ketones 2.43 H (<0.27) mmol/L 09/06/19 09/06/19 09/06/19 Range/Units 09:55 09:56 10:05 WBC (4.5-11.0) X10^3/uL RBC (4.5-5.9) X10^6/uL Hgb (13.5-17.5) g/dL Hct (41-53) % MCV (80-100) fL MCH (26-34) PG MCHC (30-36) % RDW (11.6-14.8) % Plt Count (150-400) X10^3/uL Neut % (Auto) (50-75) % Lymph % (Auto) (25-40) % Traill % (Auto) (3-14) % Eos % (Auto) (2-4) % Baso % (Auto) (0-2) % Neut # (Auto) (7620-3128) /uL Lymph # (Auto) (4255-6513) /uL Traill # (Auto) (0-900) /uL Eos # (Auto) (0-450) /uL Baso # (Auto) (0-100) /uL VBG pH 7.36 (7.33-7.43) VBG pCO2 49.5 (45-50) mmHg VBG pO2 25 L (35-45) mmHg VBG HCO3 28 (23-28) mmol/L VBG Total CO2 30 H (24-29) mmol/L VBG O2 Saturation 43 L (70-75) % VBG Base Excess 3.0 (0-4) mmol/L Sodium (137-145) mmol/L Potassium (3.4-5.1) mmol/L Chloride (98-107) mmol/L Carbon Dioxide (22-32) mmol/L BUN (9-20) mg/dL Creatinine (0.66-1.25) mg/dL Estimated GFR (>60) mL/min BUN/Creatinine Ratio (6-22) Glucose (70-100) mg/dL Hemoglobin A1c > 14.0 H (4.0-6.0) % Lactate 1.5 (0.7-2.1) mmol/L Calcium (8.4-10.2) mg/dL Magnesium (1.6-2.3) mg/dL Total Bilirubin (0.2-1.3) mg/dL AST (17-59) IU/L ALT (<50) IU/L Alkaline Phosphatase (38-126) U/L Lactate Dehydrogenase (313-618) U/L Total Creatine Kinase (55-170) U/L CK-MB (CK-2) (<2.37) ng/mL CK-MB (CK-2) Rel Index (1.5-5.0) % Troponin I (0.01-0.034) ng/mL C-Reactive Protein (<1.0) mg/dL NT-Pro-B Natriuret Pep (<125) pg/mL Total Protein (6.3-8.2) g/dL Albumin (3.5-5.0) g/dL Globulin (1.7-4.1) g/dL Albumin/Globulin Ratio (1.0-2.8) Lipase (23-300) U/L Ketones (<0.27) mmol/L Point of Care Testing Glucose POC 354 ECG Data Attestation: I personally reviewed and interpreted this ECG as follows: Interpretation: The patient's EKG reveals a sinus rhythm with a ventricular rate of 98. NH interval is 160 milliseconds QRS duration is prolonged at 120 and is a nonspecific interventricular conduction defect QTC is prolonged at 500 milliseconds axis is normal the patient has nonspecific ST segment changes and depressions in leads II [address] elevations V1 V2 with ST depressions in leads V5 and V6. T-waves are biphasic in lead III AVF V5 and V6 there are no other acute diagnostic ST segment changes. 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
[2019-09-06 07:46] LABS: Add Manual Diff / Slide Review NO; Basophils Absolute Auto 0 /uL (0-100); Basophils Percent Auto 0.2 % (0-2); Eosinophils Absolute Auto 0 /uL (0-450); Eosinophils Percent Auto 0.2 % (2-4); Hematocrit 53.7 % (41-53); Hemoglobin 18.3 g/dL (13.5-17.5); Lymphocytes Absolute Auto 1800 /uL (1100-4500); Lymphocytes Percent Auto 16.8 % (25-40); Mean Corpuscular Hemoglobin 28.4 PG (26-34); Mean Corpuscular Volume 83.4 fL (80-100); Monocytes Absolute Auto 700 /uL (0-900); Monocytes Percent Auto 6.3 % (3-14); Neutrophils Absolute Auto 8200 /uL (1500-7000); Neutrophils Percent Auto 76.5 % (50-75); Platelet Count 280 X10^3/uL (150-400); Red Blood Cell Count 6.44 X10^6/uL (4.5-5.9); Red Cell Distribution Width 13.6 % (11.6-14.8); White Blood Cell Count 10.8 X10^3/uL (4.5-11.0)
[2019-09-06] MEDS: SODIUM CHLORIDE 0.9% 1,000 ML 1000 ML IV ×2 (07:47→08:34)
[2019-09-06 07:51] LABS: Alanine Aminotransferase 45 IU/L (<50); Albumin 4.7 g/dL (3.5-5.0); Albumin Globulin Ratio 1.1 (1.0-2.8); Alkaline Phosphatase 78 U/L (38-126); Aspartate Aminotransferase 43 IU/L (17-59); BUN Creatinine Ratio 33.3 (6-22); Bilirubin Total 1.6 mg/dL (0.2-1.3); Blood Urea Nitrogen 30 mg/dL (9-20); Calcium 9.8 mg/dL (8.4-10.2); Carbon Dioxide 24 mmol/L (22-32); Chloride 96 mmol/L (98-107); Creatine Kinase 113 U/L (55-170); Estimated Glomerular Filt Rate > 60.0 mL/min (>60); Globulin 4.1 g/dL (1.7-4.1); Glucose 354 mg/dL (70-100); HEMOLYSIS < 15 (0-50); Lactate Dehydrogenase 501 U/L (313-618); Lipase 220 U/L (23-300); Potassium 3.8 mmol/L (3.4-5.1); Sodium 135 mmol/L (137-145); Total Protein 8.8 g/dL (6.3-8.2)
[2019-09-06 07:52] LABS: Lactate (Lactic Acid) 2.5 mmol/L (0.7-2.1)
[2019-09-06 07:54] LABS: Ketones (Beta-Hydroxybutyrate) 2.43 mmol/L (<0.27)
[2019-09-06 08:01] LABS: NT-proBNP (BNP-Adult 18+) 57 pg/mL (<125)
[2019-09-06 08:03] LABS: Troponin I < 0.012 ng/mL (0.01-0.034)
[2019-09-06 08:06] LABS: CKMB % Relative Index 1.6 % (1.5-5.0); Creatine Kinase MB 1.79 ng/mL (<2.37)
[2019-09-06] MEDS: ONDANSETRON 4 MG/2 ML INJ IV (08:06)
--- NOTE | 2019-09-06 08:10 | DI.RAD.S_ITS ---
PROCEDURE: XR ACUTE ABDOMEN SERIES INDICATIONS: persistent recurrent abdominal cramps with nausea and vomiting TECHNIQUE: One view chest and two views of the abdomen were acquired. COMPARISON: [facility], CR, XR CHEST 1V, 03/15/2018, 11:12. FINDINGS: Surgical changes and devices: None. Chest: An incomplete inspiratory result is noted, causing a crowded appearance to the lung markings. No focal infiltrates are seen. No pneumothorax or significant pleural effusions are seen. Abdomen: No pneumoperitoneum is seen. Bowel gas pattern is normal. No suspicious calcifications. Visualized solid organ contours appear normal. Bones: No suspicious bony lesions. Age-appropriate bony degenerative changes are seen. S-shaped scoliotic curvature is seen. IMPRESSION: A nonobstructive bowel gas pattern is seen. As clinically appropriate, please consider a repeat plain film study or a dedicated CT of the abdomen and pelvis, if the patient's symptoms persist or worsen. Dictated by: Carlos Eduardo Barr M.D. on 09/06/2019 at 7:46 Approved by: Carlos Eduardo Barr M.D. on 09/06/2019 at 7:47
[2019-09-06] MEDS: INSULIN REGULAR 100 UNIT/ML 3 ML VIAL 10 UNIT IV (08:34)
[2019-09-06 09:39] LABS: Reflexed Lactate in 2 Hours Y
--- NOTE | 2019-09-06 10:18 | DI.CT.S_ITS ---
PROCEDURE: CT ABDOMEN PELVIS W CON INDICATIONS: persistent vomiting, hyperglycemia TECHNIQUE: After the administration of intravenous contrast, 5 mm thick sections acquired from the diaphragm to the symphysis. 5 mm coronal and sagittal reformats were acquired. For radiation dose reduction, the following was used: automated exposure control, adjustment of mA and/or kV according to patient size. COMPARISON: None. FINDINGS: Image quality: Excellent. ABDOMEN: Lung bases: Lung bases are clear. Heart size is normal. Solid organs: Liver is normal in size and enhancement. Diffuse fatty liver infiltration is noted. Gallbladder wall is not thickened. Biliary system is non dilated. Pancreas enhances normally. Spleen is normal in size and enhancement. No adrenal nodules. Kidneys demonstrate normal size and enhancement, without hydronephrosis. Peritoneum and bowel: Bowel loops demonstrate normal wall thickness and caliber. No free fluid or air. Colonic diverticulosis is seen, without findings of active diverticulitis. A normal appendix is incidentally noted. Nodes and vessels: No retroperitoneal or mesenteric adenopathy by size criteria. Aorta and inferior vena cava are normal in size. Atherosclerotic calcification is noted. Miscellaneous: No ventral hernias. PELVIS: Genitourinary: Bladder wall thickness is normal. Miscellaneous: No inguinal adenopathy. Fat containing bilateral inguinal hernias are seen, left larger than right. Bones: No suspicious bony lesions. No acute vertebral body compression fractures. Mild anterior wedge deformities are seen involving the thoracolumbar junction. Mild levoconvex scoliotic curvature is noted. Relatively prominent bony degenerative changes are seen. IMPRESSION: No imaging explanation is found for this patient's presenting symptoms. Incidental note is made of: Fatty liver infiltration Diverticulosis, without active diverticulitis Fat containing bilateral inguinal hernias Normal appendix Levoconvex scoliotic curvature Premature bony degenerative change Dictated by: Carlos Eduardo Barr M.D. on 09/06/2019 at 10:00 Approved by: Carlos Eduardo Barr M.D. on 09/06/2019 at 10:03
[2019-09-06 10:20] LABS: Lactate 2HR (Lactic Acid Rflx) 1.5 mmol/L (0.7-2.1)
[2019-09-06 10:25] LABS: HCO3 VBG 28 mmol/L (23-28); PCO2 VBG 49.5 mmHg (45-50); PO2 VBG 25 mmHg (35-45); Total CO2 VBG 30 mmol/L (24-29); pH VBG 7.36 (7.33-7.43)
[2019-09-06 10:26] LABS: Oxygen Saturation VBG 43 % (70-75)
[2019-09-06 10:45] LABS: Hemoglobin A1C% w Est Avg Glu > 14.0 % (4.0-6.0)
[2019-09-06 11:30] LABS: Appearance Urine UA CLEAR; Bilirubin Urine UA NEGATIVE (NEGATIVE); Color Urine UA YELLOW; Glucose Urine UA 3+ g/dL (Negative); Ketones Urine UA 2+ (NEGATIVE); Leukocyte Esterase Urine UA NEGATIVE (NEGATIVE); Nitrite Urine UA NEGATIVE (Negative); Occult Blood Urine UA TRACE-LYSED (Negative); Protein Urine UA TRACE (Negative); Specific Gravity Urine UA 1.025 (1.000-1.035); Urobilinogen Urine UA 0.2 E.U./dL (0.2)
--- NOTE | 2019-09-06 11:41 | PC.ADMIT ---
Addendum entered by Shania Ochoa R.N. 09/06/19 14:46: Assumed care of this patient from float RN approx. 1200. Patient reports Compazine was effective for his nausea. Has remained hypertensive (see vitals as charted). This software writer let Dr Garcia know, and received order for PRN IV Labetalol which was administered per e-mar, vitals machine programmed to re-check in 30 minutes. IVF per orders, site in [facility]. Spoke with Dr Garcia re: SCD's (patient admitted with BLE's compression wraps done at wound care on ), order to d/c SCD's. Patient resting quietly in bed, denies needs at this time. Belongings and call light within reach. Patient agrees to call when he needs to get up so staff can assist with IV pole. Original Note: [id number] D Admission Note: The patient,Curtis Mari,49 y/o, was given written information regarding hospital policies, unit procedures and contact persons. Patient's smoking status: Former smoker. Vital Signs - 8 hr 09/06/19 07:24 09/06/19 07:40 09/06/19 08:00 Temperature 98.4 F Pulse Rate 110 H 98 H 115 H Respiratory Rate 20 18 Blood Pressure 179/110 H Pulse Oximetry 99 99 100 09/06/19 08:35 09/06/19 09:00 09/06/19 09:06 Temperature Pulse Rate 97 H 93 H 97 H Respiratory Rate 20 16 15 Blood Pressure 179/102 H Pulse Oximetry 97 95 97 09/06/19 09:30 09/06/19 10:00 09/06/19 10:02 Temperature Pulse Rate 87 88 93 H Respiratory Rate 16 15 13 Blood Pressure 196/103 H 207/122 H Pulse Oximetry 97 98 99 09/06/19 10:03 09/06/19 10:05 Temperature Pulse Rate 94 H 108 H Respiratory Rate 15 15 Blood Pressure 201/114 H 197/116 H Pulse Oximetry 99 99 PATIENT RETCHING/DRY HEAVES FOR 10 MIN X2. ONLY SALIVA COMES OUT, SWISH AND SPIT. RANDOM UA SENT. VOIDED 650 CC'S CLEAR JAVI URINE. HYPERTENSIVE. DESCRIBES ABD TENDER/DISCOMFORT R/T RETCHING BUT NOT REALLY CRAMPING.
[2019-09-06 11:47] LABS: Bacteria Urine Few (2-10); Culture Indicated Urine Cult Not Indicated; RBC Urine 0-1/HPF (0-5/HPF); Squamous Epithelial Cell Urine 0-1 /HPF (0-5/HPF); WBC Urine 0-1/HPF (0-5/HPF)
[2019-09-06] MEDS: SODIUM CHLORIDE 0.9% FLUSH 10 ML IV ×3 (11:56→21:47)
[2019-09-06] MEDS: PROCHLORPERAZINE 10 MG/2 ML VIAL IV (11:56)
--- NOTE | 2019-09-06 12:59 | PM.HP.1 ---
History of Present Illness History of Present Illness Chief complaint: vomiting, fatigue, nausea Patient History Medical History Congestive heart failure (Acute) Diabetes (Acute) Diabetes mellitus (Acute) Surgical History No pertinent past surgical history (Acute) Family & Social History Social History: household members spouse,children Prior Living Arrangements Apartment/Condo Safety & Behavioral: Feels Safe in Current Yes Environment Been Physically Hurt or No Threatened By a Person Suicidal Ideation Description None Suicide Plan Description No Plan Tobacco & Substance use: Tobacco type cigarettes,cannabis/marijuana Smoking Status Former smoker alcohol intake never alcohol intake frequency 0-2 drinks per day Substance Use Type marijuana Meds Home Medications and Allergies Home Medications Medication Instructions Recorded Confirmed Type amlodipine 10 mg PO DAILY 03/14/18 09/06/19 History carvedilol 25 mg PO 1300 03/14/18 09/06/19 History lisinopril 40 mg PO DAILY 03/14/18 09/06/19 History metformin 1,000 mg PO BID 03/14/18 09/06/19 History chlorthalidone 25 mg PO DAILY 03/15/18 09/06/19 History glipizide 10 mg PO BID 03/15/18 09/06/19 History ondansetron 4 mg PO Q8H PRN #10 tab 09/05/19 09/06/19 Rx Allergies Allergy/AdvReac Type Severity Reaction Status Date / Time No Known Drug Allergies Allergy Verified 09/05/19 10:04 Exam Vital Signs (past 8 hours): - 09/06/19 07:24 09/06/19 07:40 09/06/19 08:00 Temperature 98.4 F Pulse Rate 110 H 98 H 115 H Respiratory Rate 20 18 Blood Pressure 179/110 H Pulse Oximetry 99 99 100 09/06/19 08:35 09/06/19 09:00 09/06/19 09:06 Temperature Pulse Rate 97 H 93 H 97 H Respiratory Rate 20 16 15 Blood Pressure 179/102 H Pulse Oximetry 97 95 97 09/06/19 09:30 09/06/19 10:00 09/06/19 10:02 Temperature Pulse Rate 87 88 93 H Respiratory Rate 16 15 13 Blood Pressure 196/103 H 207/122 H Pulse Oximetry 97 98 99 09/06/19 10:03 09/06/19 10:05 Temperature Pulse Rate 94 H 108 H Respiratory Rate 15 15 Blood Pressure 201/114 H 197/116 H Pulse Oximetry 99 99 Oxygen Delivery Method Room Air Objective Labs Result Diagrams: 09/06/19 07:25 09/06/19 07:25 Labs: Laboratory Results - last 24 hr 09/06/19 09/06/19 09/06/19 07:25 07:25 07:25 WBC 10.8 RBC 6.44 H Hgb 18.3 H Hct 53.7 H MCV 83.4 MCH 28.4 MCHC 34.0 RDW 13.6 Plt Count 280 Neut % (Auto) 76.5 H Lymph % (Auto) 16.8 L [place] % (Auto) 6.3 Eos % (Auto) 0.2 L Baso % (Auto) 0.2 Neut # (Auto) 8200 H Lymph # (Auto) 1800 [place] # (Auto) 700 Eos # (Auto) 0 Baso # (Auto) 0 VBG pH VBG pCO2 VBG pO2 VBG HCO3 VBG Total CO2 VBG O2 Saturation VBG Base Excess Sodium 135 L Potassium 3.8 Chloride 96 L Carbon Dioxide 24 BUN 30 H Creatinine 0.90 Estimated GFR > 60.0 BUN/Creatinine Ratio 33.3 H Glucose 354 H Hemoglobin A1c Lactate 2.5 H Calcium 9.8 Total Bilirubin 1.6 H AST 43 ALT 45 Alkaline Phosphatase 78 Lactate Dehydrogenase 501 Total Creatine Kinase 113 CK-MB (CK-2) 1.79 CK-MB (CK-2) Rel Index 1.6 Troponin I < 0.012 NT-Pro-B Natriuret Pep 57 Total Protein 8.8 H Albumin 4.7 Globulin 4.1 Albumin/Globulin Ratio 1.1 Lipase 220 D Urine Color Urine Appearance Urine pH Ur Specific [place] Urine Protein Urine Glucose (UA) Urine Ketones Urine Occult Blood Urine Nitrate Urine Bilirubin Urine Urobilinogen Ur Leukocyte Esterase Urine RBC Urine WBC Ur Squamous Epith Cells Urine Bacteria Ur Culture Indicated? Ketones 09/06/19 09/06/19 09/06/19 07:25 09:55 09:56 WBC RBC Hgb Hct MCV MCH MCHC RDW Plt Count Neut % (Auto) Lymph % (Auto) [place] % (Auto) Eos % (Auto) Baso % (Auto) Neut # (Auto) Lymph # (Auto) [place] # (Auto) Eos # (Auto) Baso # (Auto) VBG pH VBG pCO2 VBG pO2 VBG HCO3 VBG Total CO2 VBG O2 Saturation VBG Base Excess Sodium Potassium Chloride Carbon Dioxide BUN Creatinine Estimated GFR BUN/Creatinine Ratio Glucose Hemoglobin A1c > 14.0 H Lactate 1.5 Calcium Total Bilirubin AST ALT Alkaline Phosphatase Lactate Dehydrogenase Total Creatine Kinase CK-MB (CK-2) CK-MB (CK-2) Rel Index Troponin I NT-Pro-B Natriuret Pep Total Protein Albumin Globulin Albumin/Globulin Ratio Lipase Urine Color Urine Appearance Urine pH Ur Specific [place] Urine Protein Urine Glucose (UA) Urine Ketones Urine Occult Blood Urine Nitrate Urine Bilirubin Urine Urobilinogen Ur Leukocyte Esterase Urine RBC Urine WBC Ur Squamous Epith Cells Urine Bacteria Ur Culture Indicated? Ketones 2.43 H 09/06/19 09/06/19 10:05 11:16 WBC RBC Hgb Hct MCV MCH MCHC RDW Plt Count Neut % (Auto) Lymph % (Auto) [place] % (Auto) Eos % (Auto) Baso % (Auto) Neut # (Auto) Lymph # (Auto) [place] # (Auto) Eos # (Auto) Baso # (Auto) VBG pH 7.36 VBG pCO2 49.5 VBG pO2 25 L VBG HCO3 28 VBG Total CO2 30 H VBG O2 Saturation 43 L VBG Base Excess 3.0 Sodium Potassium Chloride Carbon Dioxide BUN Creatinine Estimated GFR BUN/Creatinine Ratio Glucose Hemoglobin A1c Lactate Calcium Total Bilirubin AST ALT Alkaline Phosphatase Lactate Dehydrogenase Total Creatine Kinase CK-MB (CK-2) CK-MB (CK-2) Rel Index Troponin I NT-Pro-B Natriuret Pep Total Protein Albumin Globulin Albumin/Globulin Ratio Lipase Urine Color Yellow Urine Appearance Clear Urine pH 5.0 Ur Specific [place] 1.025 Urine Protein Trace H Urine Glucose (UA) 3+ H Urine Ketones 2+ H Urine Occult Blood Trace-lysed Urine Nitrate Negative Urine Bilirubin Negative Urine Urobilinogen 0.2 Ur Leukocyte Esterase Negative Urine RBC 0-1/hpf Urine WBC 0-1/hpf Ur Squamous Epith Cells 0-1 /hpf Urine Bacteria Few (2-10) H Ur Culture Indicated? Cult not indicated Ketones
[2019-09-06 13:18] LABS: Magnesium 1.8 mg/dL (1.6-2.3)
[2019-09-06] MEDS: SODIUM CHLORIDE 0.9% 1,000 ML 100 ML IV (13:23)
[2019-09-06] MEDS: LABETALOL 20 MG/4 ML SYRINGE 10 MG IV (14:27)
[2019-09-06] MEDS: INSULIN ASPART 100 UNIT/ML INSULN PEN SUBCUT ×2 (17:15→21:37)
--- NOTE | 2019-09-06 18:18 | DIET.PN ---
Dietary Progress Note Dietitians will schedule pt for outpatient DSME for A1c >14.0 and chronic wounds. Will do additional hospital education Sunday if not d/c'd
--- NOTE | 2019-09-06 21:20 | PM.HP.1 ---
History of Present Illness History of Present Illness Date Patient Seen: 09/06/19 Time Patient Seen: 20:20 Chief complaint: vomiting, fatigue, nausea Narrative: Mr. Curtis Mari is 49-year-old male with history significant for diabetes type 2, congestive heart failure, hypertension, and nonhealing wounds bilateral lower extremities who presents to the ER persistent nausea vomiting. The patient was seen in the emergency department yesterday for same complaint or upon he was given Zofran and rehydrated resolution symptoms and discharged to home with a diagnosis of hyperglycemia. Patient states he has been unable to take any his medications and returns today with continued nausea vomiting and persistent hyperglycemia. The patient has history of diabetes though he is not regular about checking blood sugars. Please prescribed metformin, glipizide and states he has been prescribed NovoLog which he has run out. The patient states his symptoms began 2 days ago with nausea vomiting and associated abdominal cramping fatigue and weakness. Reports no diarrhea and had normal bowel movement today. He has currently under the care of Dr. Huerta at the wound care clinic nonhealing wounds bilateral lower extremities. Has a history of a left anterior and right lateral wounds as well as calluses the soles of both feet which have been treated with debridement. Patient additionally states he was recently started on Augmentin for his right leg wound which on review of cultures reveals Enterococcus faecialis. He reports no fevers or chills and will become shaky with episodes of nausea vomiting. He has had no ill contacts or known COVID-19 exposures denies questionable food sources or travel. He denies complaints headaches or dizziness, nasal congestion or sore throat. He is followed by ophthalmology for his diabetes. He denies complaints of chest pain or palpitations and has no shortness of breath cough or wheezing. He has abdominal complaints as above. He denies urinary symptoms and has nocturia 1 time nightly. He has wraps bilateral lower extremities from the wound clinic with mole skin dressing the soles of bilateral forefeet. He describes wounds that are healing and improving left anterior lower leg and right lateral lower leg. Upon arrival to the ER the patient has a temperature 98.8?, tachycardic to 101, blood pressure 190/123, respirations 16 saturating 98% on room air. X-ray of the abdomen reveals no obstructive gas patterns, CT of the abdomen pelvis finds no acute pathology, notes fatty liver. On laboratory analysis the patient has white count of 10.8 with increased neutrophils at 8200, hemoglobin is 18.3, hematocrit is 53.7, platelets are 280. Electrolytes are within normal limits, magnesium is 1.8, BUN is 30 creatinine is 0.9. His nonfasting glucose is 354. VBG is obtained feeling a pH of 7.36, bicarb 28 a base deficit of +3. Ketones are assessed and found to be 2.43. Troponin is negative at less than 0.012. His liver functions are all within normal limits and albumin is 4.7.. Initial lactic acid was 2.5 following IV hydration sin proved to 1.5. In the ER the patient received 10 units of insulin, 2 L of IV saline and Zofran. The patient is admitted to the medicine service for protracted nausea vomiting and uncontrolled diabetes with hyperglycemia. Patient's primary care provider is Dr. Ovalles. Patient History Medical History (Updated 09/07/19 @ 00:09 by DEDE Urena) Congestive heart failure (Acute) Diabetes mellitus (Acute) Hypertension (Acute) Ulcer of left lower leg (Inactive) Ulcer of right leg (Inactive) Surgical History (Updated 09/07/19 @ 00:10 by DEDE Urena) History of foot surgery (Acute) Family & Social History Family History (Updated 09/07/19 @ 00:11 by DEDE Urena) Father Myocardial infarction Mother Diabetes mellitus Brother Diabetes mellitus Social History: household members spouse,children Prior Living Arrangements Apartment/Condo Safety & Behavioral: Feels Safe in Current Yes Environment Been Physically Hurt or No Threatened By a Person Suicidal Ideation Description None Suicide Plan Description No Plan Tobacco & Substance use: Tobacco type cigarettes,cannabis/marijuana Smoking Status Former smoker alcohol intake never alcohol intake frequency 0-2 drinks per day Substance Use Type marijuana Meds Home Medications and Allergies Home Medications Medication Instructions Recorded Confirmed Type amlodipine 10 mg PO DAILY 03/14/18 09/06/19 History carvedilol 25 mg PO 1300 03/14/18 09/06/19 History lisinopril 40 mg PO DAILY 03/14/18 09/06/19 History metformin 1,000 mg PO BID 03/14/18 09/06/19 History chlorthalidone 25 mg PO DAILY 03/15/18 09/06/19 History glipizide 10 mg PO BID 03/15/18 09/06/19 History ondansetron 4 mg PO Q8H PRN #10 tab 09/05/19 09/06/19 Rx Allergies Allergy/AdvReac Type Severity Reaction Status Date / Time No Known Drug Allergies Allergy Verified 09/05/19 10:04 Review of Systems Review of Systems ROS: Yes All systems reviewed with the patient and are negative except as otherwise documented Exam Vital Signs (past 8 hours): - 09/06/19 13:37 09/06/19 14:27 09/06/19 15:00 Temperature Pulse Rate 90 93 H 84 Respiratory Rate Blood Pressure 185/109 H 175/114 H 142/95 H Pulse Oximetry 09/06/19 15:30 09/06/19 16:00 09/06/19 19:29 Temperature 98.6 F 97.9 F Pulse Rate 84 90 Respiratory Rate 15 16 Blood Pressure 148/92 H 195/118 H Pulse Oximetry 96 96 98 09/06/19 19:52 Temperature Pulse Rate Respiratory Rate Blood Pressure 147/91 H Pulse Oximetry Oxygen Delivery Method Room Air Oxygen Flow Rate 0 Narrative Exam Narrative: GENERAL APPEARANCE: well developed, obese male with a BMI of 35.2, in no acute distress. HEENT: Normocephalic, wears glasses, PERRLA, conjunctiva clear, EOMs intact without nystagmus, no sinus tenderness to percussion, no rhinorrhea, mucous membranes are moist and pink without lesions or exudate. NECK/THYROID: neck supple, no JVD, no thyromegaly, trachea midline. LYMPH NODES: no cervical or supraclavicular lymphadenopathy. SKIN: [place], warm and dry, no visible lesions, bilateral lower extremities with wound care dressings/wrap distal from the knee to the foot, mole skin on the distal sole of bilateral feet. HEART: regular rate and rhythm, S1-S2, no murmur, no rubs or gallops, brisk capillary refill, no edema LUNGS: clear to auscultation bilaterally, no coarseness crackles or wheezing, no cough present CHEST: Symmetrical movement, no accessory muscle use, good tidal volume. ABDOMEN: Soft, no distention, no abdominal pain on palpation, no guarding or peritoneal signs, no organomegaly, no flank or suprapubic tenderness, active bowel tones. EXTREMITIES: moves all extremities, strength is 5/5 and symmetrical, no deformities or joint effusions. NEUROLOGIC: AAO x3, cranial nerves II-XII grossly intact, sensation reported as intact on exam, hearing grossly normal to speech. PSYCH: Good judgment, linear thought process, cooperative, appropriate with stable behavior. Objective Labs Result Diagrams: 09/06/19 07:25 09/06/19 07:25 Labs: Laboratory Results - last 24 hr 09/06/19 09/06/19 09/06/19 07:25 07:25 07:25 WBC 10.8 RBC 6.44 H Hgb 18.3 H Hct 53.7 H MCV 83.4 MCH 28.4 MCHC 34.0 RDW 13.6 Plt Count 280 Neut % (Auto) 76.5 H Lymph % (Auto) 16.8 L [place] % (Auto) 6.3 Eos % (Auto) 0.2 L Baso % (Auto) 0.2 Neut # (Auto) 8200 H Lymph # (Auto) 1800 [place] # (Auto) 700 Eos # (Auto) 0 Baso # (Auto) 0 VBG pH VBG pCO2 VBG pO2 VBG HCO3 VBG Total CO2 VBG O2 Saturation VBG Base Excess Sodium 135 L Potassium 3.8 Chloride 96 L Carbon Dioxide 24 BUN 30 H Creatinine 0.90 Estimated GFR > 60.0 BUN/Creatinine Ratio 33.3 H Glucose 354 H Hemoglobin A1c Lactate 2.5 H Calcium 9.8 Magnesium Total Bilirubin 1.6 H AST 43 ALT 45 Alkaline Phosphatase 78 Lactate Dehydrogenase 501 Total Creatine Kinase 113 CK-MB (CK-2) 1.79 CK-MB (CK-2) Rel Index 1.6 Troponin I < 0.012 NT-Pro-B Natriuret Pep 57 Total Protein 8.8 H Albumin 4.7 Globulin 4.1 Albumin/Globulin Ratio 1.1 Lipase 220 D Urine Color Urine Appearance Urine pH Ur Specific [place] Urine Protein Urine Glucose (UA) Urine Ketones Urine Occult Blood Urine Nitrate Urine Bilirubin Urine Urobilinogen Ur Leukocyte Esterase Urine RBC Urine WBC Ur Squamous Epith Cells Urine Bacteria Ur Culture Indicated? Ketones 09/06/19 09/06/19 09/06/19 07:25 07:25 09:55 WBC RBC Hgb Hct MCV MCH MCHC RDW Plt Count Neut % (Auto) Lymph % (Auto) [place] % (Auto) Eos % (Auto) Baso % (Auto) Neut # (Auto) Lymph # (Auto) [place] # (Auto) Eos # (Auto) Baso # (Auto) VBG pH VBG pCO2 VBG pO2 VBG HCO3 VBG Total CO2 VBG O2 Saturation VBG Base Excess Sodium Potassium Chloride Carbon Dioxide BUN Creatinine Estimated GFR BUN/Creatinine Ratio Glucose Hemoglobin A1c > 14.0 H Lactate Calcium Magnesium 1.8 Total Bilirubin AST ALT Alkaline Phosphatase Lactate Dehydrogenase Total Creatine Kinase CK-MB (CK-2) CK-MB (CK-2) Rel Index Troponin I NT-Pro-B Natriuret Pep Total Protein Albumin Globulin Albumin/Globulin Ratio Lipase Urine Color Urine Appearance Urine pH Ur Specific [place] Urine Protein Urine Glucose (UA) Urine Ketones Urine Occult Blood Urine Nitrate Urine Bilirubin Urine Urobilinogen Ur Leukocyte Esterase Urine RBC Urine WBC Ur Squamous Epith Cells Urine Bacteria Ur Culture Indicated? Ketones 2.43 H 09/06/19 09/06/19 09/06/19 09:56 10:05 11:16 WBC RBC Hgb Hct MCV MCH MCHC RDW Plt Count Neut % (Auto) Lymph % (Auto) [place] % (Auto) Eos % (Auto) Baso % (Auto) Neut # (Auto) Lymph # (Auto) [place] # (Auto) Eos # (Auto) Baso # (Auto) VBG pH 7.36 VBG pCO2 49.5 VBG pO2 25 L VBG HCO3 28 VBG Total CO2 30 H VBG O2 Saturation 43 L VBG Base Excess 3.0 Sodium Potassium Chloride Carbon Dioxide BUN Creatinine Estimated GFR BUN/Creatinine Ratio Glucose Hemoglobin A1c Lactate 1.5 Calcium Magnesium Total Bilirubin AST ALT Alkaline Phosphatase Lactate Dehydrogenase Total Creatine Kinase CK-MB (CK-2) CK-MB (CK-2) Rel Index Troponin I NT-Pro-B Natriuret Pep Total Protein Albumin Globulin Albumin/Globulin Ratio Lipase Urine Color Yellow Urine Appearance Clear Urine pH 5.0 Ur Specific [place] 1.025 Urine Protein Trace H Urine Glucose (UA) 3+ H Urine Ketones 2+ H Urine Occult Blood Trace-lysed Urine Nitrate Negative Urine Bilirubin Negative Urine Urobilinogen 0.2 Ur Leukocyte Esterase Negative Urine RBC 0-1/hpf Urine WBC 0-1/hpf Ur Squamous Epith Cells 0-1 /hpf Urine Bacteria Few (2-10) H Ur Culture Indicated? Cult not indicated Ketones Assessment & Plan Assessment & Plan narrative: This is a 49-year-old male patient with protracted nausea vomiting failing outpatient treatment with complications of diabetes including hyperglycemia and chronic ulcers bilateral lower extremities currently on antibiotic therapy. 1. Nausea and vomiting, acute, acute, present on admission, active. -patient presented to the ER 09/05/2019 with 2 days of nausea vomiting, was treated with hydration and Zofran discharged home only to return today with persistent symptoms. -cause of nausea vomiting likely multifactorial, most likely severe hyperglycemia, possible gastroparesis worsened by wound infection. -patient has been unable to take his routine medications complicating his hypertension and diabetes. -the patient received hydration and Zofran with improvement in symptoms. -continue normal saline 75 cc/hour for gentle rehydration in the setting congestive heart failure. -order Protonix 40 mg daily 2. Acute dehydration, present on admission, active -patient acutely dehydrated related to history of diuretic use, hyperglycemia and inability to orally replete. -electrolytes are within normal limits, BUN is 30 with a creatinine 0.9, BUN creatinine ratio is 33.3. -patient received 2 L normal saline in the emergency department. Will continue gentle rehydration with normal saline 75 cc/hour in the setting congestive heart failure. 3. Diabetes type 2, not currently using insulin, with non acidotic hyperglycemia with ketosis, present on admission, active. -blood sugar on admission is 354 with ketones of 2.43, anion gap is 15. VBG pH of 7.36, bicarb 28 and base deficit of +3. -patient sources floor glycemic management with frequent dietary indiscretions. -he has been unable to take his diabetic medications of metformin and glipizide due to his nausea vomiting. The patient states he has been prescribed NovoLog. -ordered fingerstick blood sugars a.c. and HS with medium range correctional insulin. Will recheck glucose at midnight and cover with insulin. -ordered Lantus 10 units twice daily. -or Zofran 4 mg every 4 hours as needed for nausea with Reglan 10 mg IV every 8 hours as needed for second-line treatment. -ordered hemoglobin A1c, found to be greater than 14. -requesting dietitian consult. 4. Nonhealing wounds bilateral lower extremities, chronic, stable. -patient is followed by the wound care clinic and Dr. Huerta. -wound culture of the right lower leg wound reveals Enterococcus faecialis, for which he is taking antibiotics. -will continue home regimen of Augmentin twice daily. -bilateral lower extremity dressings are intact without pain or distal edema. Patient has appointment wound care clinic on . 5. Hypertension, chronic, stable. -patient has been able to keep down medications including his antihypertensives. -blood pressure on arrival was 190/123. -ordered labetalol 10 mg IV as needed for blood pressure sustained greater than 180 and heart rate greater than 60. -ordered patient's routine medication of carvedilol 25 mg daily as a now dose. -will continue amlodipine 10 mg and lisinopril 40 mg daily. -patient's dehydrated, will hold chlorthalidone. 6. Congestive heart failure, unknown type, present on admission, stable. -patient denies shortness of breath or chest pain and has no cough or wheezing. -patient routinely takes chlorthalidone 25 mg daily which is held due to dehydration. -will closely monitor for signs and symptoms of heart failure. No indication for echocardiogram needed at this time. VTE prophylaxis: Bilateral lower extremity wraps in place for wound care, heparin. IV fluid: Normal saline 75 cc/hour. Diet: Heart healthy, small constant carbohydrate. Advanced directives: FULL CODE, Vicente Iglesias is surrogate decision maker. The patient is admitted to the hospital after failing outpatient treatment and worsening of comorbid conditions increasing risk for complications and adverse events. Patient is admitted as observation with expected length of stay to be less than 2 midnights. COVID-19 COVID-19 status: Negative Result date/Date tested (Pos, Neg/Pending): 09/05/19 Scores GCS Moris coma scale eye opening: Spontaneous Moris coma scale verbal response: Orientated Moris coma scale motor response: Obey commands [place] coma scale total score: 15
[2019-09-06] MEDS: carvediloL 25 MG TABLET PO (21:32)
[2019-09-06] MEDS: HEPARIN 5,000 UNIT/ML VIAL 5000 UNIT SUBCUT (21:32)
[2019-09-06] MEDS: INSULIN GLARGINE 100 UNIT/ML 3ML PEN 10 UNIT SUBCUT (21:37)
[2019-09-06] MEDS: METOCLOPRAMIDE 10 MG/2 ML INJ IV (21:45)
[2019-09-06] MEDS: AMOXICILLIN/CLAV 875/125 MG 1 TAB PO (21:47)
--- NOTE | 2019-09-06 22:16 | PC.NURSE ---
no appetite for dinner tonight. slight nausea, no vomiting. administered reglan for nausea. pt at some vanilla pudding for dinner. independent. call light in reach. safety checks. continue to monitor.
[2019-09-06] MEDS: SODIUM CHLORIDE 0.9% 1,000 ML 75 ML IV (23:59)
[2019-09-07] VITALS (16 sets, daily range): BP systolic 135–188; BP diastolic 92–115; PULSE 69–84; RESP 13–18; TEMP 36.2–37.2; O2SAT 96–98
[2019-09-07 00:04] LABS: C-Reactive Protein Quant < 0.5 mg/dL (<1.0)
[2019-09-07] MEDS: INSULIN ASPART 100 UNIT/ML INSULN PEN SUBCUT ×5 (00:05→20:28)
[2019-09-07] MEDS: PANTOPRAZOLE 40 MG TABLET PO (06:03)
[2019-09-07 06:58] LABS: Add Manual Diff / Slide Review NO; Basophils Absolute Auto 0 /uL (0-100); Basophils Percent Auto 0.3 % (0-2); Eosinophils Absolute Auto 100 /uL (0-450); Eosinophils Percent Auto 1.1 % (2-4); Hemoglobin 15.9 g/dL (13.5-17.5); Lymphocytes Absolute Auto 1900 /uL (1100-4500); Lymphocytes Percent Auto 24.6 % (25-40); Mean Corpuscular HGB Conc 33.9 % (30-36); Mean Corpuscular Hemoglobin 28.7 PG (26-34); Mean Corpuscular Volume 84.6 fL (80-100); Monocytes Absolute Auto 600 /uL (0-900); Monocytes Percent Auto 7.7 % (3-14); Neutrophils Absolute Auto 5200 /uL (1500-7000); Neutrophils Percent Auto 66.3 % (50-75); Platelet Count 212 X10^3/uL (150-400); Red Blood Cell Count 5.56 X10^6/uL (4.5-5.9); Red Cell Distribution Width 13.8 % (11.6-14.8); White Blood Cell Count 7.9 X10^3/uL (4.5-11.0)
[2019-09-07 07:05] LABS: BUN Creatinine Ratio 24.1 (6-22); Blood Urea Nitrogen 21 mg/dL (9-20); Carbon Dioxide 29 mmol/L (22-32); Chloride 98 mmol/L (98-107); Estimated Glomerular Filt Rate > 60.0 mL/min (>60); Glucose 306 mg/dL (70-100); HEMOLYSIS < 15 (0-50); Sodium 134 mmol/L (137-145)
[2019-09-07] MEDS: METOCLOPRAMIDE 10 MG/2 ML INJ IV (08:04)
[2019-09-07] MEDS: SODIUM CHLORIDE 0.9% FLUSH 10 ML IV ×3 (08:05→20:29)
--- NOTE | 2019-09-07 08:54 | CM.DANOTE ---
DCP: Case received, EMR reviewed and met with patient. Introduced self and role. Son was also present in room. Was able to obtain information from patient regarding his baseline activity level, and living situation. DCP assessment completed with information currently available. Patient is a 49 year old male who admitted yesterday morning to the care of the hospitalist team. PCP: Dr. Ovalles at [facility]. Payer: confirmed: [place]/Medicaid/Sharing Program. Patient came to the hospital via family vehicle secondary to having nausea and vomiting. Patient is a diabetic type 2, and was noted to have an increased glucose level of 357. Patient is also being treated here at [facility] with Dr. Berry for chronic stasis dermatitis and skin ulcers resulting with bilateral leg wraps. He is also getting debridement for calluses as well. Patient was at ER a day ago, and came back secondary to increased nausea and vomiting. Met with patient in his room. He was sitting up on the edge of the bed, eating some of his breakfast. He resides with family members here in [place]. He is alert and oriented. Confirmed that his primary doctor is not Dr. Keller, which is what was listed on sheet, but Dr. Ovalles at the [facility]. He goes to the wound clinic every . He is independent as far as mobility. Asked patient if he was having any difficulties getting his medications, for it was noted that he ran out of insulin. He mentioned that he gets his medications from [facility], and they did not include his insulin at last refill. He stated that he is planning on contacting them next week. Asked him if he routinely checks his blood sugar, and stated, not all of the time. P: DCP to continue to follow for any needs. He should be able to go home when he is medically stable. Dimple Quinones, RN/Dry [employer]
[2019-09-07] MEDS: INSULIN GLARGINE 100 UNIT/ML 3ML PEN 10 UNIT SUBCUT ×2 (09:51→20:27)
[2019-09-07] MEDS: AMLODIPINE 5 MG TABLET 10 MG PO (09:52)
[2019-09-07] MEDS: AMOXICILLIN/CLAV 875/125 MG 1 TAB PO ×2 (09:52→20:27)
[2019-09-07] MEDS: HEPARIN 5,000 UNIT/ML VIAL 5000 UNIT SUBCUT ×2 (09:53→20:25)
[2019-09-07] MEDS: lisinopriL 20 MG TABLET 40 MG PO (09:53)
[2019-09-07] MEDS: SODIUM CHLORIDE 0.9% 1,000 ML 75 ML IV (12:10)
[2019-09-07] MEDS: LABETALOL 20 MG/4 ML SYRINGE 10 MG IV ×2 (12:15→20:26)
[2019-09-07] MEDS: carvediloL 25 MG TABLET PO ×2 (13:19→23:35)
--- NOTE | 2019-09-07 14:51 | PC.NURSE ---
Addendum entered by Rosi Rainey R.N. 09/07/19 14:54: Patient had episode of hypertension 183/113 and HR 81 at 1200, Patient was given labetolol 10mg at 1215. BP was 147/93 at 1245 P 71. Original Note: Patient had episode of hypertension 11
[2019-09-07] MEDS: ONDANSETRON 4 MG/2 ML INJ IV (16:09)
--- NOTE | 2019-09-07 17:05 | P.PN_ITS ---
Subjective Subjective Date Patient Seen: 09/07/19 Interval history: Curtis Mari is 49-year-old male with a past medical history significant for poorly controlled diabetes mellitus type 2, insulin using, congestive heart failure, resistent hypertension, and nonhealing diabetic wounds of bilateral lower extremities who presented to the ED with persistent intractable nausea and vomiting. The patient is resting in bed comfortably. He has had intermittent nausea without recurrence of emesis. He reports he began having nausea and vomiting on that has been persistent with early satiety and minimal appetite. Discussed diabetic management and associated complications in detail including gastroparesis. Also discussed viral gastroeneteritis and possibility of GI upset and infectious diarrhea with Augmentin which he started Sunday (although he has tolerated this antibiotic previously). He endorses loose stool today but no diarrhea. He has had some low abdominal cramping but no pain. He has no other complaints and denies headache, rhinitis, sore throat, cough, shortness of breath, chest pain, abdominal pain, fever, chills, dysuria, diarrhea or constipation. He is voiding and eliminating without difficulty. He is up ambulating without assistance. Exam Vital Signs (past 8 hours): - 09/07/19 09:53 09/07/19 11:57 09/07/19 12:47 Temperature 99 F 98.0 F Pulse Rate 84 77 71 Respiratory Rate 16 13 Blood Pressure 173/113 H 188/113 H 147/93 H Pulse Oximetry 97 98 09/07/19 13:00 09/07/19 15:20 Temperature 98.6 F Pulse Rate 73 Respiratory Rate 15 Blood Pressure 156/106 H Pulse Oximetry 98 98 Oxygen Delivery Method Room Air Oxygen Flow Rate 0 Narrative Exam Narrative: General: Middle aged male lying in bed and in no acute distress, well-developed, well-nourished, appropriately interactive. HEENT: Normocephalic, atraumatic. External ears without defect. Pupils equal, round, and reactive to light. Anicteric sclerae, moist conjunctivae, and no lid lag. Oropharynx free of erythema and cobble stoning with moist mucosa. Neck: Supple with full range of motion. No jugular venous distension. No lymphadenopathy or thyromegaly. Cardiovascular: Regular rate and rhythm without murmurs, rubs, or gallops appreciated. Pulmonary: Clear to auscultation bilaterally without crackles, wheezes, or rhonchi. Normal respiratory effort with no use of accessory muscles. Abdomen: Soft, bowel sounds present, nontender, nondistended. No hepatosplenom egaly or masses appreciated. Extremities: No clubbing, cyanosis, or edema. Several wounds on bilateral lower extremities and feet with dressings in place no signs of surrounding erythema, edema, cellulitis or infection. Large callus on left plantar aspect of foot. Skin: Normal temperature, turgor, and texture; no rash, ulcers, or subcutaneous nodules appreciated. Neurological: Cranial nerves grossly intact. Psychiatric: Normal mood and affect. Alert and oriented to person, place, and time. Objective Labs Result Diagrams: 09/07/19 06:45 09/07/19 06:45 Labs: Laboratory Results - last 24 hr 09/06/19 09/07/19 09/07/19 07:25 06:45 06:45 WBC 7.9 RBC 5.56 Hgb 15.9 Hct 47.0 MCV 84.6 MCH 28.7 MCHC 33.9 RDW 13.8 Plt Count 212 Neut % (Auto) 66.3 Lymph % (Auto) 24.6 L Dawes % (Auto) 7.7 Eos % (Auto) 1.1 L Baso % (Auto) 0.3 Neut # (Auto) 5200 Lymph # (Auto) 1900 Dawes # (Auto) 600 Eos # (Auto) 100 Baso # (Auto) 0 Sodium 134 L Potassium 4.0 Chloride 98 Carbon Dioxide 29 BUN 21 H Creatinine 0.87 Estimated GFR > 60.0 BUN/Creatinine Ratio 24.1 H Glucose 306 H Calcium 9.0 C-Reactive Protein < 0.5 Assessment & Plan Assessment & Plan narrative: Curtis Mari is 49-year-old male with a past medical history significant for poorly controlled diabetes mellitus type 2, insulin using, congestive heart failure, resistent hypertension, and nonhealing diabetic wounds of bilateral lower extremities who presented to the ED with persistent intractable nausea and vomiting. 1. Intractable nausea and vomiting, acute, present on admission. Improving. -Patient presented to the ED on 09/05/2019 with 2 days of nausea vomiting, was treated with IV hydration and Zofran and discharged home to return the next day with persistent symptoms. Patient has been unable to take his routine medicat ions complicating his hypertension and diabetes. -Etiology of nausea and vomiting is unclear but likely multifactorial and due to severe hyperglycemia from uncontrolled DM with possible complication of gastroparesis, possibly GI upset (monitor for diarrhea as c. diff is possibility) with antibiotic Augmentin for bilateral lower extremity wounds. Viral gastroenteritis is in differential. -Continue as needed antiemetics with Zofran and Compazine for symptom control. -Received 2 L normal saline in ED. Continued gentle rehydration with NS at 75 mL/hr in the setting CHF until adequately hydrated and able to take in PO intake then discontinued. -Continue Protonix 40 mg daily. -Ordered NM gastric emptying study for tomorrow, pending. 2. Acute dehydration, present on admission. Resolved. -Patient presented acutely dehydrated related to history of diuretic use, hyperglycemia and inability to orally replete. -Electrolytes are within normal limits, BUN is 30 with a creatinine 0.9, BUN creatinine ratio is 33.3. -Received 2 L normal saline in ED. Continued gentle rehydration with NS at 75 mL/hr in the setting CHF until adequately hydrated and able to take in PO intake then discontinued. 3. Diabetes mellitus type 2, insulin using, with non acidotic hyperglycemia and ketosis, present on admission. Active. -Hemoglobin A1C > 14. BG on admission 354, no gap, ketones 2.43. VBG pH of 7.36, bicarb 28 and base deficit of +3. -Patient endorses poor glycemic management with frequent dietary indiscretions. He has been unable to take his diabetic medications of metformin and glipizide due to his nausea vomiting. The patient states he has been prescribed NovoLog which he takes 10 units twice daily and metformin 1000 mg twice daily. -Held metformin. Continue ACHS blood glucose checks and medium dose correctional scale insulin. Started and continue Lantus 10 units twice daily. -Consulted [employer] drm consultant and we appreciate her time and recommendations. 4. Non-healing diabetic wounds bilateral lower extremities, chronic, present on admission. Stable. -Patient is followed by the wound care clinic and Dr. Huerta. -Wound culture of the right lower leg wound reveals Enterococcus faecialis for which he is taking Augmentin twice daily and will continue. -Bilateral lower extremity dressings are intact without pain or distal edema. Patient has appointment wound care clinic on . 5. Hypertension, chronic, present on admission. Stable. -Patient has been able to keep down medications including his antihypertensives. -Blood pressure on arrival was 190/123. -Continue amlodipine 10 mg, carvedilol 25 mg daily and lisinopril 40 mg daily. Held chlorthalidone due to dehydration. Ordered labetalol 10 mg IV every 4 hours as needed for SBP > 180 mmHg sustained for 15 minutes and HR >60. 6. Congestive heart failure, unknown type, present on admission. Stable. -Patient denies shortness of breath or chest pain. -Continue carvedilol 25 mg daily and lisinopril 40 mg daily. -Continue to monitor closely for signs and symptoms of heart failure. No indication for echocardiogram needed at this time. Code status: Full code, Vicente Iglesias is surrogate decision maker. VTE prophylaxis: SQ Heparin Disposition: Patient will likely discharge in 1-2 days once rehydrated and investigation and resolution of nausea and vomiting has resolved.
--- NOTE | 2019-09-07 22:28 | PC.NURSE ---
Patient continues to be hypertensive and complains of intermittent nausea, administered lebatolol at 2025 and Zofran at 1609. Patient had scant amount of clear emesis at 1600. Informed patient to tell staff if has BM, patient receptive and agreed. No BM this shift. Blood glucose remains elevated, but patient's oral intake is inadequate and has been refusing meals d/t nausea. Patient has been resting in bed all of this shift, sleeping intermittently.
--- NOTE | 2019-09-07 22:49 | PC.NURSE ---
Pt's iv fluid orders have and note given to DEDE Aquino re continuation or discontinuation of iv fluids. Pt received dose of labetalol as per MD order for hypertension and repeat blood pressure 153/94 156/101 with HR 70. Hospitalist DEDE Aquino desires iv fluids dc'd and will review pt's meds to consider changing/altering antihypertensives.
[2019-09-08 01:00] VITALS: O2SAT 96
[2019-09-08 05:00] VITALS: O2SAT 97
[2019-09-08 05:30] VITALS: BP 146/93; PULSE 68; RESP 18; TEMP 37.1; O2SAT 97
[2019-09-08] MEDS: PANTOPRAZOLE 40 MG TABLET PO (05:43)
[2019-09-08 07:18] VITALS: BP 168/109; PULSE 66; RESP 18; TEMP 36.6; O2SAT 92
--- NOTE | 2019-09-08 08:11 | PM.DS.1 ---
History of Present Illness History of Present Illness Date Patient Seen: 09/08/19 Time Patient Seen: 08:11 Chief complaint: vomiting, fatigue, nausea Narrative: As per DEDE Urena: Mr. Curtis Mari is 49-year-old male with history significant for diabetes type 2, congestive heart failure, hypertension, and nonhealing wounds bilateral lower extremities who presents to the ER persistent nausea vomiting. The patient was seen in the emergency department yesterday for same complaint or upon he was given Zofran and rehydrated resolution symptoms and discharged to home with a diagnosis of hyperglycemia. Patient states he has been unable to take any his medications and returns today with continued nausea vomiting and persistent hyperglycemia. The patient has history of diabetes though he is not regular about checking blood sugars. Please prescribed metformin, glipizide and states he has been prescribed NovoLog which he has run out. The patient states his symptoms began 2 days ago with nausea vomiting and associated abdominal cramping fatigue and weakness. Reports no diarrhea and had normal bowel movement today. He has currently under the care of Dr. Huerta at the wound care clinic nonhealing wounds bilateral lower extremities. Has a history of a left anterior and right lateral wounds as well as calluses the soles of both feet which have been treated with debridement. Patient additionally states he was recently started on Augmentin for his right leg wound which on review of cultures reveals Enterococcus faecialis. He reports no fevers or chills and will become shaky with episodes of nausea vomiting. He has had no ill contacts or known COVID-19 exposures denies questionable food sources or travel. He denies complaints headaches or dizziness, nasal congestion or sore throat. He is followed by ophthalmology for his diabetes. He denies complaints of chest pain or palpitations and has no shortness of breath cough or wheezing. He has abdominal complaints as above. He denies urinary symptoms and has nocturia 1 time nightly. He has wraps bilateral lower extremities from the wound clinic with mole skin dressing the soles of bilateral forefeet. He describes wounds that are healing and improving left anterior lower leg and right lateral lower leg. Upon arrival to the ER the patient has a temperature 98.8?, tachycardic to 101, blood pressure 190/123, respirations 16 saturating 98% on room air. X-ray of the abdomen reveals no obstructive gas patterns, CT of the abdomen pelvis finds no acute pathology, notes fatty liver. On laboratory analysis the patient has white count of 10.8 with increased neutrophils at 8200, hemoglobin is 18.3, hematocrit is 53.7, platelets are 280. Electrolytes are within normal limits, magnesium is 1.8, BUN is 30 creatinine is 0.9. His nonfasting glucose is 354. VBG is obtained feeling a pH of 7.36, bicarb 28 a base deficit of +3. Ketones are assessed and found to be 2.43. Troponin is negative at less than 0.012. His liver functions are all within normal limits and albumin is 4.7.. Initial lactic acid was 2.5 following IV hydration sin proved to 1.5. In the ER the patient received 10 units of insulin, 2 L of IV saline and Zofran. The patient is admitted to the medicine service for protracted nausea vomiting and uncontrolled diabetes with hyperglycemia. Patient's primary care provider is Dr. Ovalles. Discharge Providers Provider Date of admission: 09/06/19 10:17 Discharge Date: 09/08/19 Primary care physician: Delvin Keller MD Consults: 09/06/19 11:40 Consult to Dietitian, Adult Routine Comment: Reason For Exam: Noncompliant diabetic, nonhealing wounds Discharge provider: Fred Blue DO Summary Hospital Course Discharge Diagnosis: Please see hospital course by problem list noted below. Hospital Course: This is a 49-year-old male patient with protracted nausea vomiting failing outpatient treatment with complications of diabetes including hyperglycemia and chronic ulcers bilateral lower extremities currently on antibiotic therapy. He was admitted with recurrent nausea and vomiting and acute dehydration and hyperglycemia consistent with HHS. He slowly improved and on the day of discharge was tolerating adequate oral intake. Symptoms were deemed likely due to gastroparesis. Patient was set up for a gastric emptying study, however he had eaten the night before and radiology was unable to proceed. Patient no longer required continued inpatient care, and can be set up for outpatient gastric emptying study by his primary care provider. He was started on Reglan to take before meals given high likelihood of gastroparesis. 1. Nausea and vomiting, acute, acute, present on admission, active. -patient presented to the ER 09/05/2019 with 2 days of nausea vomiting, was treated with hydration and Zofran discharged home only to return \with persistent symptoms. -cause of nausea vomiting likely multifactorial, most likely severe hyperglycemia, likely gastroparesis, and new antibiotic for wound infection. -patient had been unable to take his routine medications complicating his hypertension and diabetes. -the patient received hydration and Zofran with improvement in symptoms. Patient was given IV fluid rehydration in till adequately rehydrated and glucose level was improved. He was changed to Reglan upon discharge for likely gastroparesis. 2. Acute dehydration, present on admission, active -patient acutely dehydrated related to history of diuretic use, hyperglycemia and inability to orally replete. -patient received 2 L normal saline in the emergency department and was continued on gentle rehydration with 75 cc/hour of normal saline until he was adequately rehydrated. 3. Diabetes type 2, not currently using insulin, with non acidotic hyperglycemia with ketosis, present on admission, active. -blood sugar on admission was 354 with ketones of 2.43, anion gap is 15. VBG pH of 7.36, bicarb 28 and base deficit of +3. -he has been unable to take his diabetic medications of metformin and glipizide due to his nausea vomiting. The patient states he has been prescribed NovoLog. He had somewhat improved control on Lantus 10 units b.i.d.. This can be continued as an outpatient, and he should follow-up with his primary care provider for further management. -hemoglobin A1c was greater than 14% 4. Nonhealing wounds bilateral lower extremities, chronic, stable. -patient is followed by the wound care clinic and Dr. Huerta. -wound culture of the right lower leg wound reveals Enterococcus faecialis, for which he is taking antibiotics. -will continue home regimen of Augmentin twice daily. -bilateral lower extremity dressings are intact without pain or distal edema. Patient has appointment wound care clinic on . 5. Hypertension, chronic, stable. -patient has been able to keep down medications including his antihypertensives. -blood pressure on arrival was 190/123, improved over the course of admission with re-initiation of home therapies. No changes recommended as an outpatient. 6. Congestive heart failure, unknown type, present on admission, stable. -patient denies shortness of breath or chest pain and has no cough or wheezing. -patient routinely takes chlorthalidone 25 mg daily which was held due to dehydration. -there was no indication for repeat echocardiogram during his admission. Exam Vital Signs (past 8 hours): - 09/08/19 01:00 09/08/19 05:00 09/08/19 05:30 Temperature 98.8 F Pulse Rate 68 Respiratory Rate 18 Blood Pressure 146/93 H Pulse Oximetry 96 97 97 Oxygen Delivery Method Room Air Oxygen Flow Rate 0 Narrative Exam Narrative: GENERAL APPEARANCE: well developed, obese male with a BMI of 35.2, in no acute distress. HEENT: Normocephalic, wears glasses, PERRLA, conjunctiva clear, EOMs intact without nystagmus, no sinus tenderness to percussion, no rhinorrhea, mucous membranes are moist and pink without lesions or exudate. NECK/THYROID: neck supple, no JVD, no thyromegaly, trachea midline. LYMPH NODES: no cervical or supraclavicular lymphadenopathy. SKIN: [place], warm and dry, no visible lesions, bilateral lower extremities with wound care dressings/wrap distal from the knee to the foot, mole skin on the distal sole of bilateral feet. HEART: regular rate and rhythm, S1-S2, no murmur, no rubs or gallops, brisk capillary refill, no edema LUNGS: clear to auscultation bilaterally, no coarseness crackles or wheezing, no cough present CHEST: Symmetrical movement, no accessory muscle use, good tidal volume. ABDOMEN: Soft, no distention, no abdominal pain on palpation, no guarding or peritoneal signs, no organomegaly, no flank or suprapubic tenderness, active bowel tones. EXTREMITIES: moves all extremities, strength is 5/5 and symmetrical, no deformities or joint effusions. NEUROLOGIC: AAO x3, cranial nerves II-XII grossly intact, sensation reported as intact on exam, hearing grossly normal to speech. PSYCH: Good judgment, linear thought process, cooperative, appropriate with stable behavior. Objective Labs Result Diagrams: 09/07/19 06:45 09/07/19 06:45 Discharge Plan Discharge Plan Patient Disposition: Home Discharge comment: You were admitted to the hospital with nausea and vomiting. This is likely due to high blood sugars over long period of time leading to something called gastroparesis, which is slowed movement of food in your stomach. You can start taking the nausea medication Reglan before meals to try and prevent nausea from developing. Your symptoms will also likely improve with improved blood sugars. You were started on a long-acting insulin, please follow-up with your primary care provider for further adjustments in your diabetes medications. Discharge orders & Medications Prescriptions: New insulin detemir U-100 100 unit/mL (3 mL) insulin pen 10 unit SUBCUT BID 30 Days Qty: 6 RF: 0 (DME) pen needle, diabetic [Pen Needle] 31 gauge x 5/16 needle See Rx Instructions .ROUTE .MEDSUPPLY Qty: 60 RF: 0 metoclopramide HCl [Reglan] 5 mg tablet 5 mg PO QAC 30 Days Qty: 90 RF: 0 Continued metformin 500 mg Tablet 1,000 mg PO BID RF: 0 carvedilol 25 mg Tablet 25 mg PO 1300 RF: 0 amlodipine 10 mg Tablet 10 mg PO DAILY RF: 0 lisinopril 40 mg Tablet 40 mg PO DAILY RF: 0 glipizide 10 mg tablet 10 mg PO BID RF: 0 chlorthalidone 25 mg tablet 25 mg PO DAILY RF: 0 ondansetron 4 mg tablet,disintegrating 4 mg PO Q8H PRN (Reason: nausea and vomiting) Qty: 10 RF: 0 Follow up/Referrals: Delvin Keller MD [Primary Care Provider] - Discharge Health Status Health Concerns: diabetes likely gastroparesis Diet/Activity/Treatments Diet: Diet as Tolerated and Carb-consistent/Diabetic Activity: As tolerated Visit Report/Discharge Packet Instructions: Complications of Type 2 Diabetes, Type 2 Diabetes, Metoclopramide Visit Report Forms: Patient Portal/API, Stroke Signs & Symptoms Discharge Data Primary Care Provider: Delvin Keller Attending Provider: Carmelina Garcia Admit Date/Time: 09/06/19 10:17 Discharges patient from system. Discharge Date/Time: 09/08/19 10:45
[2019-09-08] MEDS: INSULIN GLARGINE 100 UNIT/ML 3ML PEN 15 UNIT SUBCUT (08:15)
[2019-09-08] MEDS: carvediloL 25 MG TABLET PO (08:16)
[2019-09-08] MEDS: AMOXICILLIN/CLAV 875/125 MG 1 TAB PO (08:16)
[2019-09-08] MEDS: HEPARIN 5,000 UNIT/ML VIAL 5000 UNIT SUBCUT (08:16)
[2019-09-08] MEDS: AMLODIPINE 5 MG TABLET 10 MG PO (08:16)
[2019-09-08] MEDS: INSULIN ASPART 100 UNIT/ML INSULN PEN SUBCUT (08:16)
[2019-09-08] MEDS: lisinopriL 20 MG TABLET 40 MG PO (08:16)
--- NOTE | 2019-09-10 10:34 | CM.DPC ---
DCP cont: Faxed discharge summary to Dr. Ovalles at [facility] at fax # [phone], as requested via voicemail from Sabra Zuleta. Fax confirmation scanned in. Evon Cook, Care Production Line Mechanic
== END 2019-09-08 10:45 | disposition home or self-care (01) ==
LOC: ED 10:16 → AC 10:19
PROVIDERS: Nurse Practitioner Adult Health; Admitting Provider Internal Medicine; Emergency Provider Emergency Medicine; PCP Family Medicine; Referring Provider Emergency Medicine; Visit Provider Internal Medicine
DX: R11.2 Nausea with vomiting, unspecified (principal); E11.9 Type 2 diabetes mellitus without complications; I10 Essential (primary) hypertension; E11.65 Type 2 diabetes mellitus with hyperglycemia; S81.802A Unspecified open wound, left lower leg, initial encounter; S81.801A Unspecified open wound, right lower leg, initial encounter; B95.2 Enterococcus as the cause of diseases classified elsewhere; B96.89 Other specified bacterial agents as the cause of diseases classified elsewhere; I50.9 Heart failure, unspecified; Z79.4 Long term (current) use of insulin
CPT/HCPCS: 36415; 74022; 74177; 80048; 80053; 81001; 82009; 82550; 82553; 82805; 82962; 83036; 83605; 83615; 83690; 83735; 83880; 84484; 85025; 86140; 93005; 96361; 96372; 96374; 96375; 96376; 99284; G0378; J0780; J1644; J2405; J2765; Q9967

== ENCOUNTER → 2019-09-10 13:52 | Outpatient (CLI) | payer OTHER, SELFPAY ==
[2019-09-06 11:36] VITALS: BMI 36.9
== END ==
PROVIDERS: PCP Family Medicine; Referring Provider Family Medicine; Visit Provider Family Medicine
DX: I77.6 Arteritis, unspecified (principal); L97.211 Non-pressure chronic ulcer of right calf limited to breakdown of skin; L97.811 Non-pressure chronic ulcer of other part of right lower leg limited to breakdown of skin; L95.9 Vasculitis limited to the skin, unspecified; R77.9 Abnormality of plasma protein, unspecified; L08.9 Local infection of the skin and subcutaneous tissue, unspecified; B95.2 Enterococcus as the cause of diseases classified elsewhere
CPT/HCPCS: 99213; 99214

== ENCOUNTER → 2019-09-17 09:45 | Outpatient (CLI) | payer OTHER, SELFPAY ==
[2019-09-06 11:36] VITALS: BMI 36.9
== END ==
PROVIDERS: PCP Family Medicine; Referring Provider Family Medicine; Visit Provider Family Medicine
DX: S81.801A Unspecified open wound, right lower leg, initial encounter (principal); E11.621 Type 2 diabetes mellitus with foot ulcer; L97.515 Non-pressure chronic ulcer of other part of right foot with muscle involvement without evidence of necrosis
CPT/HCPCS: 11042; 87070; 87075; 87077; 87186; 87205

== ENCOUNTER → 2019-09-24 10:08 | Outpatient (CLI) | payer OTHER, SELFPAY ==
[2019-09-06 11:36] VITALS: BMI 36.9
== END ==
PROVIDERS: PCP Family Medicine; Referring Provider Family Medicine; Visit Provider Family Medicine
DX: I77.6 Arteritis, unspecified (principal); L97.211 Non-pressure chronic ulcer of right calf limited to breakdown of skin; L95.9 Vasculitis limited to the skin, unspecified; R77.9 Abnormality of plasma protein, unspecified; E11.43 Type 2 diabetes mellitus with diabetic autonomic (poly)neuropathy; L97.511 Non-pressure chronic ulcer of other part of right foot limited to breakdown of skin; L08.9 Local infection of the skin and subcutaneous tissue, unspecified; B95.7 Other staphylococcus as the cause of diseases classified elsewhere; L97.811 Non-pressure chronic ulcer of other part of right lower leg limited to breakdown of skin
CPT/HCPCS: 11042; 99214

== ENCOUNTER 2019-09-29 18:55 | Observation (INO) | payer OTHER, SELFPAY ==
[2019-09-06 11:36] VITALS: BMI 36.9
[2019-09-29] VITALS (9 sets, daily range): BP systolic 118–162; BP diastolic 74–97; PULSE 70–109; RESP 15–18; O2SAT 97–99; BMI 36.9
[2019-09-29] MEDS: SODIUM CHLORIDE 0.9% 1,000 ML 1000 ML IV ×2 (20:12→22:33)
[2019-09-29 20:18] LABS: INR 1.1 (0.9-1.3); Prothrombin Time 12.3 SECONDS (10.1-12.7)
[2019-09-29 20:21] LABS: Add Manual Diff / Slide Review NO; Basophils Absolute Auto 0 /uL (0-100); Basophils Percent Auto 0.4 % (0-2); Eosinophils Absolute Auto 100 /uL (0-450); Eosinophils Percent Auto 0.7 % (2-4); Hematocrit 51.5 % (41-53); Hemoglobin 17.9 g/dL (13.5-17.5); Lymphocytes Absolute Auto 2700 /uL (1100-4500); Lymphocytes Percent Auto 26.9 % (25-40); Mean Corpuscular HGB Conc 34.8 % (30-36); Mean Corpuscular Hemoglobin 28.9 PG (26-34); Mean Corpuscular Volume 83.1 fL (80-100); Monocytes Absolute Auto 900 /uL (0-900); Neutrophils Absolute Auto 6300 /uL (1500-7000); PTT Partial Thromboplastin Tim 30 SECONDS (26.4-36.2); Platelet Count 349 X10^3/uL (150-400); Red Cell Distribution Width 14.1 % (11.6-14.8); White Blood Cell Count 10.1 X10^3/uL (4.5-11.0)
[2019-09-29 20:22] LABS: Alanine Aminotransferase 57 IU/L (<50); Albumin 4.9 g/dL (3.5-5.0); Alkaline Phosphatase 61 U/L (38-126); Aspartate Aminotransferase 45 IU/L (17-59); BUN Creatinine Ratio 22.3 (6-22); Bilirubin Total 2.1 mg/dL (0.2-1.3); Blood Urea Nitrogen 31 mg/dL (9-20); Carbon Dioxide 24 mmol/L (22-32); Chloride 95 mmol/L (98-107); Estimated Glomerular Filt Rate 54.3 mL/min (>60); Glucose 193 mg/dL (70-100); HEMOLYSIS < 15 (0-50); Lipase 115 U/L (23-300); Potassium 3.3 mmol/L (3.4-5.1); Sodium 135 mmol/L (137-145)
[2019-09-29 20:34] LABS: Albumin Globulin Ratio 1.1 (1.0-2.8); Globulin 4.4 g/dL (1.7-4.1); Total Protein 9.3 g/dL (6.3-8.2)
--- NOTE | 2019-09-29 22:06 | ED_ITS ---
HPI - General Adult General Chief complaint: Diabetic Problem Stated complaint: diabetic issues, elevated sugars Time Seen by Provider: 09/29/19 21:29 Source: patient Limitations: no limitations History of Present Illness HPI narrative: Patient here for nausea and vomiting feeling dehydrated. Denies any chest pain or dyspnea or fluid retention. History of diabetes and CHF. Recently admitted here earlier this month and discharged for acute renal injury/dehydration hyperglycemia. Due to financial strains patient was not able to get his medications filled until this past Sunday. In the past 2 weeks is slowly getting in the same situation as beginning of the month. Denies any cough cold congestion fever chills. Related Data Home Medications Medication Instructions Recorded Confirmed amlodipine 10 mg PO DAILY 03/14/18 09/30/19 carvedilol 25 mg PO 1300 03/14/18 09/30/19 lisinopril 40 mg PO DAILY 03/14/18 09/30/19 metformin 850 mg PO BID 03/14/18 09/30/19 chlorthalidone 25 mg PO DAILY 03/15/18 09/30/19 Lantus Solostar U-100 Insulin 10 units SUBCUT BID 09/30/19 09/30/19 Novolog PenFill U-100 Insulin 5 units SUBCUT TID 09/30/19 09/30/19 Previous Rx's Medication Instructions Recorded metoclopramide HCl [Reglan] 5 mg PO QAC 30 Days #90 tab 09/08/19 pen needle, diabetic [Pen Needle] #60 each 09/08/19 Allergies Allergy/AdvReac Type Severity Reaction Status Date / Time No Known Drug Allergies Allergy Verified 09/05/19 10:04 Review of Systems Review of Systems Narrative: GENERAL: Denies chills, fatigue, malaise, fever, sweats. HEENT: Denies sinus pain, ear pain, sore throat, difficulty swallowing, dizziness. RESPIRATORY: Denies dyspnea, cough, wheezing, hemoptysis, sputum. CARDIOVASCULAR: Denies chest pain, palpitations, orthopnea, edema, GASTROINTESTINAL: Complains of nausea, vomiting, denies abdominal pain, diarrhea, constipation, melena. : Denies dysuria, frequency, incontinence, hematuria, urinary retention. MUSCULOSKELETAL: denies weakness, joint pain, or bony pain SKIN: Denies rash, skin lesions, or other NEUROLOGIC: Denies weakness, headache, numbness, change in speech, confusion, seizures, incoordination. PSYCHIATRIC: No concerning psychosocial issues. ROS Unobtainable: All systems reviewed & are unremarkable except as noted in HPI and below Patient History Medical History Congestive heart failure (Acute) Diabetes mellitus (Acute) Hypertension (Acute) Ulcer of left lower leg (Inactive) Ulcer of right leg (Inactive) Surgical History History of foot surgery (Acute) Family History Father Myocardial infarction Mother Diabetes mellitus Brother Diabetes mellitus Social History household members: spouse and children Smoking Status: Former smoker alcohol intake: never Smoking Status: Former smoker alcohol intake frequency: 0-2 drinks per day Substance Use Type: marijuana Exam Narrative Exam Narrative: GENERAL: patient appears stated age. Well-nourished, well-deve loped patient, in no distress, not toxic HEAD: Atraumatic. Normocephalic. EYES: Pupils equal round and reactive. Extraocular motions intact. No scleral icterus. No injection or drainage. ENT: Nose without bleeding, purulent drainage. Throat without erythema, tonsillar hypertrophy or exudate. Airway patent. NECK: Trachea midline. Non tender CARDIOVASCULAR: Regular rate and rhythm without murmurs, gallops, or rubs. RESPIRATORY: Clear to auscultation. Breath sounds equal bilaterally. No wheezes, rales, or rhonchi. GASTROINTESTINAL: Abdomen soft, non-tender, nondistended. EXTREMITIES: No edema or joint tenderness. BACK: Nontender without deformity or crepitance. No flank tenderness. NEURO: AOx3. SKIN: No rash or erythema of visible areas PSYCH: Not anxious, is cooperative Initial Vital Signs Initial Vital Signs: Vital Signs Pulse Rate 109 H 09/29/19 19:12 Respiratory Rate 18 09/29/19 19:12 Blood Pressure 118/78 09/29/19 19:12 Pulse Oximetry 99 09/29/19 19:12 Course Orders Ordered: ED Orders 09/29/19 20:05 Complete Blood Count AUTO DIFF Stat Comprehensive Metabolic Panel Stat Lipase Stat NT-proBNP (BNP-Adult 18+) Stat Partial Thromboplastin Time Stat Prothrombin Time INR Stat Acetaminophen (Tylenol) 650 mg PO Q6HR PRN PRN Reason: Fever/Mild Pain (1-3) Dextrose (D50w) 25 gm IV PRN PRN PRN Reason: Hypoglycemia Heparin Sodium (Porcine) (Heparin) 5,000 unit SUBCUT BID [facility] Last Admin: 09/30/19 02:00 Dose: 5,000 unit Documented by: IVA Sodium Chloride (Normal Saline 0.9%) 1,000 mls @ 100 mls/hr IV CONT [facility] Last Admin: 09/30/19 00:17 Dose: 100 mls/hr Documented by: IVA Insulin Aspart (Novolog Flexpen) 0 unit SUBCUT ACHS [facility]; Protocol Insulin Glargine (Lantus Solostar (Pen)) 10 unit SUBCUT BID [facility] Last Admin: 09/30/19 01:07 Dose: Not Given Documented by: IVA Naloxone HCl (Narcan) 0.2 mg IV Q2MIN PRN PRN Reason: Opiate Reversal Ondansetron HCl (Zofran) 4 mg IV Q6HR [facility] Last Admin: 09/30/19 00:23 Dose: Not Given Documented by: IVA Ondansetron HCl (Zofran Odt) 4 mg PO Q8HR PRN PRN Reason: Nausea And Vomiting Pantoprazole Sodium (Protonix) 20 mg PO 0600 [facility] Discontinued Medications Heparin Sodium (Porcine) (Heparin) 5,000 unit IV BID [facility] Last Admin: 09/30/19 01:59 Dose: Not Given Documented by: IVA Sodium Chloride (Normal Saline 0.9%) 1,000 mls @ 1,000 mls/hr IV BOLUS ONE Stop: 09/29/19 21:10 Last Infusion: 09/29/19 21:26 Dose: 0 mls/hr Documented by: Admin: 09/29/19 20:12 Dose: 1,000 mls/hr Documented by: ANDREW Sodium Chloride (Normal Saline 0.9%) 1,000 mls @ 1,000 mls/hr IV BOLUS ONE Stop: 09/29/19 23:03 Last Infusion: 09/29/19 23:44 Dose: 1,000 mls/hr Documented by: Admin: 09/29/19 22:33 Dose: 1,000 mls/hr Documented by: ANDREW Ondansetron HCl (Zofran) 4 mg IV NOW ONE Stop: 09/29/19 22:06 Last Admin: 09/29/19 22:33 Dose: 4 mg Documented by: ANDREW Consultations Consultation #1: Spoke with nurse practitioner hospitalist gayathri short, will see patient in the emergency department 1st Time: 22:07 Vital Signs Vital signs: Vital Signs - 8 hr 09/29/19 21:30 09/29/19 21:48 09/29/19 22:00 Pulse Rate 70 70 82 Respiratory Rate 16 Blood Pressure 156/96 H 157/94 H Pulse Oximetry 98 99 99 09/29/19 22:30 09/29/19 23:00 Pulse Rate 73 83 Respiratory Rate Blood Pressure 156/94 H Pulse Oximetry 98 99 Medical Decision Making Medical Records Medical records reviewed: Yes I reviewed the patient's medical records. Lab Data Lab results reviewed: Yes I reviewed the patient's lab results. Result diagrams: 09/29/19 20:05 09/29/19 20:05 Labs: Lab Results 09/29/19 09/29/19 09/29/19 Range/Units 20:05 20:05 20:05 WBC 10.1 (4.5-11.0) X10^3/uL RBC 6.20 H (4.5-5.9) X10^6/uL Hgb 17.9 H (13.5-17.5) g/dL Hct 51.5 (41-53) % MCV 83.1 (80-100) fL MCH 28.9 (26-34) PG MCHC 34.8 (30-36) % RDW 14.1 (11.6-14.8) % Plt Count 349 (150-400) X10^3/uL Neut % (Auto) 63.0 (50-75) % Lymph % (Auto) 26.9 (25-40) % [place] % (Auto) 9.0 (3-14) % Eos % (Auto) 0.7 L (2-4) % Baso % (Auto) 0.4 (0-2) % Neut # (Auto) 6300 (6236-6966) /uL Lymph # (Auto) 2700 (1361-3849) /uL [place] # (Auto) 900 (0-900) /uL Eos # (Auto) 100 (0-450) /uL Baso # (Auto) 0 (0-100) /uL PT 12.3 (10.1-12.7) SECONDS INR 1.1 (0.9-1.3) APTT 30 (26.4-36.2) SECONDS Sodium 135 L (137-145) mmol/L Potassium 3.3 L (3.4-5.1) mmol/L Chloride 95 L (98-107) mmol/L Carbon Dioxide 24 (22-32) mmol/L BUN 31 H (9-20) mg/dL Creatinine 1.39 H (0.66-1.25) mg/dL Estimated GFR 54.3 L (>60) mL/min BUN/Creatinine Ratio 22.3 H (6-22) Glucose 193 H (70-100) mg/dL Calcium 10.0 (8.4-10.2) mg/dL Total Bilirubin 2.1 H (0.2-1.3) mg/dL AST 45 (17-59) IU/L ALT 57 H (<50) IU/L Alkaline Phosphatase 61 (38-126) U/L NT-Pro-B Natriuret Pep (<125) pg/mL Total Protein 9.3 H (6.3-8.2) g/dL Albumin 4.9 (3.5-5.0) g/dL Globulin 4.4 H (1.7-4.1) g/dL Albumin/Globulin Ratio 1.1 (1.0-2.8) Lipase 115 (23-300) U/L COVID-19 PCR (Negative) 09/29/19 09/29/19 Range/Units 20:05 22:34 WBC (4.5-11.0) X10^3/uL RBC (4.5-5.9) X10^6/uL Hgb (13.5-17.5) g/dL Hct (41-53) % MCV (80-100) fL MCH (26-34) PG MCHC (30-36) % RDW (11.6-14.8) % Plt Count (150-400) X10^3/uL Neut % (Auto) (50-75) % Lymph % (Auto) (25-40) % [place] % (Auto) (3-14) % Eos % (Auto) (2-4) % Baso % (Auto) (0-2) % Neut # (Auto) (6571-4833) /uL Lymph # (Auto) (1663-4895) /uL [place] # (Auto) (0-900) /uL Eos # (Auto) (0-450) /uL Baso # (Auto) (0-100) /uL PT (10.1-12.7) SECONDS INR (0.9-1.3) APTT (26.4-36.2) SECONDS Sodium (137-145) mmol/L Potassium (3.4-5.1) mmol/L Chloride (98-107) mmol/L Carbon Dioxide (22-32) mmol/L BUN (9-20) mg/dL Creatinine (0.66-1.25) mg/dL Estimated GFR (>60) mL/min BUN/Creatinine Ratio (6-22) Glucose (70-100) mg/dL Calcium (8.4-10.2) mg/dL Total Bilirubin (0.2-1.3) mg/dL AST (17-59) IU/L ALT (<50) IU/L Alkaline Phosphatase (38-126) U/L NT-Pro-B Natriuret Pep 49 (<125) pg/mL Total Protein (6.3-8.2) g/dL Albumin (3.5-5.0) g/dL Globulin (1.7-4.1) g/dL Albumin/Globulin Ratio (1.0-2.8) Lipase (23-300) U/L COVID-19 PCR Negativen (Negative) Point of Care Testing Glucose POC 149 Point of care testing: Point of Care Testing Glucose POC 149 MDM Narrative Medical decision making narrative: Appropriate for admission. Patient has not had medications at home until 4 days ago. Renal function reviewed and similar to admission earlier this month Discharge Plan Departure Patient Disposition: Admitted as Observation Clinical Impression: Acute dehydration, Hyperglycemia Discharge Date/Time: 09/29/19 23:40 Admit Date/Time: 09/29/19 23:06 Admit Provider: Leona Short
[2019-09-29 22:26] LABS: NT-proBNP (BNP-Adult 18+) 49 pg/mL (<125)
[2019-09-29] MEDS: ONDANSETRON 4 MG/2 ML INJ IV (22:33)
--- NOTE | 2019-09-29 23:43 | PM.HP.1 ---
History of Present Illness History of Present Illness Date Patient Seen: 09/29/19 Time Patient Seen: 23:00 Chief complaint: diabetic issues, elevated sugars Narrative: Curtis Mari is 49-year-old male with history significant for diabetes type 2, congestive heart failure, hypertension, and nonhealing wounds bilateral lower extremities who presents to the ER persistent nausea vomiting. He states states his symptoms began 1 day ago with nausea vomiting and associated abdominal cramping fatigue and weakness. He was recently admitted on September 05 and discharged on September 07 for the same. During that admission he was found to have an A1c of 14 and discharged on Lantus 10 units and correctional scale insulin. Patient states he has been taking any his oral antidiabetic medications but ran out of his insulins due to affordability. He returns today with continued nausea vomiting and persistent hyperglycemia. He has been established at [facility] in [facility] and had a follow up appointment but was unable to make it due to a work emergency which he needed to be present for. He has not been in communication with a clinician there since he was discharged. He confirms that he usually uses 5 units of regular insulin with meals, but is not regular about checking prandial blood sugars. He takes metformin, glipizide and states he has been prescribed NovoLog which he has run out. He has on bout of diarrhea 2 days ago and has had normal soft stool bowel movements. He states he has the chills and is shaking under the blankets today. He has exertional shortness of breath which has worsened over the last couple of days, denies chest pain, abdominal pain, dysuria or constipation. He has currently under the care of Dr. Huerta at the wound care clinic nonhealing wounds bilateral lower extremities. Has a history of a left anterior and right lateral wounds as well as calluses the soles of both feet which have been treated with debridement. Both lower extremities are wrapped in compression wraps and he states that he still has a wound on the back of his right calf which is healing well. He was recently treated wt Augmentin for his right leg wound which on review of cultures reveals Enterococcus faecialis. Patient is afebrile, blood pressure 152/98, heart rate 81, respirations 18 saturating 98% on room air, he weighs 120.2 kg with a BMI of 36.9. WBC 10.1, RBC 6.2, hemoglobin 17.9, hematocrit 51.5, platelet count 349, INR is 1.1, sodium 135, potassium 3.3, chloride 95, bicarb 24, BUN 31, creatinine 1.39, GFR 54.3, total bilirubin is 2.1, AST 45, ALT 57, albumin is 4.9. He has a borderline elevated gap calculated at 16. The patient will be hydrated overnight with an attempt to get his diabetes under better control and correct in an MICHAEL and and is placed in observation status. Patient History Medical History Congestive heart failure (Acute) Diabetes mellitus (Acute) Hypertension (Acute) Ulcer of left lower leg (Inactive) Ulcer of right leg (Inactive) Surgical History History of foot surgery (Acute) Family & Social History Family History Father Myocardial infarction Mother Diabetes mellitus Brother Diabetes mellitus Social History: household members spouse,children Safety & Behavioral: Feels Safe in Current Yes Environment Been Physically Hurt or No Threatened By a Person Tobacco & Substance use: Tobacco type cigarettes,cannabis/marijuana Smoking Status Former smoker alcohol intake never alcohol intake frequency 0-2 drinks per day Substance Use Type marijuana Meds Home Medications and Allergies Home Medications Medication Instructions Recorded Confirmed Type amlodipine 10 mg PO DAILY 03/14/18 09/06/19 History carvedilol 25 mg PO 1300 03/14/18 09/06/19 History lisinopril 40 mg PO DAILY 03/14/18 09/06/19 History metformin 1,000 mg PO BID 03/14/18 09/06/19 History chlorthalidone 25 mg PO DAILY 03/15/18 09/06/19 History metoclopramide HCl [Reglan] 5 mg PO QAC 30 Days #90 tab 09/08/19 Rx pen needle, diabetic [Pen Needle] #60 each 09/08/19 Rx Allergies Allergy/AdvReac Type Severity Reaction Status Date / Time No Known Drug Allergies Allergy Verified 09/05/19 10:04 Review of Systems Review of Systems ROS: Yes All systems reviewed with the patient and are negative except as otherwise documented Exam Vital Signs (past 8 hours): - 09/29/19 19:12 09/29/19 20:00 09/29/19 20:30 Pulse Rate 109 H 74 71 Respiratory Rate 18 15 16 Blood Pressure 118/78 136/89 118/74 Pulse Oximetry 99 99 97 09/29/19 21:30 09/29/19 21:48 09/29/19 22:00 Pulse Rate 70 70 82 Respiratory Rate 16 Blood Pressure 156/96 H 157/94 H Pulse Oximetry 98 99 99 09/29/19 22:30 09/29/19 23:00 09/29/19 23:33 Pulse Rate 73 83 75 Respiratory Rate 16 Blood Pressure 156/94 H 162/97 H Pulse Oximetry 98 99 98 Oxygen Delivery Method Room Air Narrative Exam Narrative: Gen: Alert, oriented, obese 49 y.o. Eurasian[place] male, appears fatigued and is shivering HEENT: normocephalic, atraumatic, conjunctiva clear, sclera non-icteric, oral mucosa pink and moist Neck: supple, full ROM, no JVD, trachea is midline Resp: Lungs CTA, non-labored breathing CV: RRR, no murmur or rubs Abd: soft, non-tender, normoactive BTs Skin: both lower legs are wrapped in ART wraps Neuro: Alert and oriented X 4 w/no focal deficits. Speech clear and coherent. Extremities: moves all 4 extremities, is ambulatory, negative Diego?s sign Psyche: normal mood and affect. Objective Labs Result Diagrams: 09/29/19 20:05 09/29/19 20:05 Labs: Laboratory Results - last 24 hr 09/29/19 09/29/19 09/29/19 20:05 20:05 20:05 WBC 10.1 RBC 6.20 H Hgb 17.9 H Hct 51.5 MCV 83.1 MCH 28.9 MCHC 34.8 RDW 14.1 Plt Count 349 Neut % (Auto) 63.0 Lymph % (Auto) 26.9 [place] % (Auto) 9.0 Eos % (Auto) 0.7 L Baso % (Auto) 0.4 Neut # (Auto) 6300 Lymph # (Auto) 2700 [place] # (Auto) 900 Eos # (Auto) 100 Baso # (Auto) 0 PT 12.3 INR 1.1 APTT 30 Sodium 135 L Potassium 3.3 L Chloride 95 L Carbon Dioxide 24 BUN 31 H Creatinine 1.39 H Estimated GFR 54.3 L BUN/Creatinine Ratio 22.3 H Glucose 193 H Calcium 10.0 Total Bilirubin 2.1 H AST 45 ALT 57 H Alkaline Phosphatase 61 NT-Pro-B Natriuret Pep Total Protein 9.3 H Albumin 4.9 Globulin 4.4 H Albumin/Globulin Ratio 1.1 Lipase 115 COVID-19 PCR 09/29/19 09/29/19 20:05 22:34 WBC RBC Hgb Hct MCV MCH MCHC RDW Plt Count Neut % (Auto) Lymph % (Auto) [place] % (Auto) Eos % (Auto) Baso % (Auto) Neut # (Auto) Lymph # (Auto) [place] # (Auto) Eos # (Auto) Baso # (Auto) PT INR APTT Sodium Potassium Chloride Carbon Dioxide BUN Creatinine Estimated GFR BUN/Creatinine Ratio Glucose Calcium Total Bilirubin AST ALT Alkaline Phosphatase NT-Pro-B Natriuret Pep 49 Total Protein Albumin Globulin Albumin/Globulin Ratio Lipase COVID-19 PCR Negativen Assessment & Plan Assessment & Plan narrative: Curtis Mari will be placed into observation to manage his hyperglycemia and dehydration. He will require close outpatient follow-up after discharge. Diabetes type 2 poorly controlled with a hemoglobin A1c of 14 as of September 05, present on admission -I have increased his Lantus to 10 units twice a day and he will receive medium dose correctional insulin -NPO until his symptoms of nausea subsided -Q 6 hour glucose checks Acute kidney injury, present on admission with a creatinine of 1.39 which is new -he will receive hydration with normal saline at 100 mL/hour and recheck his renal function in the morning Essential hypertension, chronic, present on admission -continue amlodipine 10 mg p.o. daily -Continue home dose of lisinopril 40 mg p.o. daily Congestive heart failure, chronic, present on admission -Continue home dose of carvedilol 25 mg po daily Consults: none Patient is observation status as his stay is not likely to exceed 2 midnights. FEN: IV NS at 100 ml/hour, NPO then progress to carb controlled diet, CMP and magnesium in the am. VTE prophylaxis: Heparin 5000 units bid Dispo: Likely discharge to home with close outpatient follow-up Code Status: Full code as discussed with patient
[2019-09-30] VITALS: BMI 36.9
[2019-09-30 00:08] VITALS: BP 152/98; PULSE 81; RESP 18; TEMP 36.6
[2019-09-30] MEDS: SODIUM CHLORIDE 0.9% 1,000 ML 100 ML IV (00:17)
--- NOTE | 2019-09-30 01:31 | PC.NURSE ---
Admitted from ER, oriented to his room. Denied any fall for the past 3 months, steady on is feet. BLE wrapped with compression drsmelodie. DEDE Short ordered not to unwrap his dressing & Pt. declined to have his wound check. Reported the wound clinic change my dressing every . Will cont. POC & monitor.
[2019-09-30] MEDS: HEPARIN 5,000 UNIT/ML VIAL 5000 UNIT SUBCUT ×2 (02:00→10:48)
[2019-09-30 04:50] VITALS: BP 126/71; PULSE 73; RESP 16; TEMP 36.9; O2SAT 96
[2019-09-30 05:06] LABS: Add Manual Diff / Slide Review NO; Basophils Absolute Auto 0 /uL (0-100); Basophils Percent Auto 0.3 % (0-2); Eosinophils Absolute Auto 100 /uL (0-450); Eosinophils Percent Auto 1.6 % (2-4); Hematocrit 44.2 % (41-53); Hemoglobin 15.2 g/dL (13.5-17.5); Lymphocytes Absolute Auto 3000 /uL (1100-4500); Lymphocytes Percent Auto 37.5 % (25-40); Mean Corpuscular HGB Conc 34.4 % (30-36); Mean Corpuscular Hemoglobin 28.9 PG (26-34); Mean Corpuscular Volume 83.9 fL (80-100); Monocytes Absolute Auto 700 /uL (0-900); Monocytes Percent Auto 8.5 % (3-14); Neutrophils Absolute Auto 4200 /uL (1500-7000); Neutrophils Percent Auto 52.1 % (50-75); Platelet Count 238 X10^3/uL (150-400); Red Blood Cell Count 5.26 X10^6/uL (4.5-5.9); Red Cell Distribution Width 13.5 % (11.6-14.8)
[2019-09-30 05:10] LABS: Alanine Aminotransferase 38 IU/L (<50); Albumin 3.6 g/dL (3.5-5.0); Albumin Globulin Ratio 1.1 (1.0-2.8); Alkaline Phosphatase 43 U/L (38-126); Aspartate Aminotransferase 32 IU/L (17-59); BUN Creatinine Ratio 23.3 (6-22); Bilirubin Total 1.4 mg/dL (0.2-1.3); Blood Urea Nitrogen 27 mg/dL (9-20); Calcium 8.4 mg/dL (8.4-10.2); Carbon Dioxide 26 mmol/L (22-32); Chloride 101 mmol/L (98-107); Estimated Glomerular Filt Rate > 60.0 mL/min (>60); Globulin 3.3 g/dL (1.7-4.1); Glucose 144 mg/dL (70-100); HEMOLYSIS < 15 (0-50); Magnesium 1.6 mg/dL (1.6-2.3); Potassium 3.7 mmol/L (3.4-5.1); Sodium 134 mmol/L (137-145); Total Protein 6.9 g/dL (6.3-8.2)
[2019-09-30] MEDS: PANTOPRAZOLE 20 MG TABLET PO (05:47)
[2019-09-30 08:00] VITALS: BP 140/87; PULSE 69; RESP 15; TEMP 36.7; O2SAT 98
[2019-09-30] MEDS: INSULIN GLARGINE 100 UNIT/ML 3ML PEN 10 UNIT SUBCUT (08:57)
[2019-09-30] MEDS: INSULIN ASPART 100 UNIT/ML INSULN PEN SUBCUT ×2 (09:00→11:35)
--- NOTE | 2019-09-30 09:47 | PC.NURSE ---
Addendum entered by Estefanía Melgar R.N. 09/30/19 13:19: PATIENT CONFIRMS UNDERSTANDING OF ALL DC HOME INSTRUCTIONS. MAG RIDER COMPLETE. IV DC'D INTACT. PATIENT ESCORTED TO [facility] BY PHP SOFTWARE ENGINEER BY . Original Note: PATIENT DENIES NAUSEA, DENIES ABD PAIN, REPORTS SOME DIARRHEA 2 DAYS AGO. DENIES CONSTIPATION, DENIES TROUBLE WITH URINATION. PATIENT GIVEN ADA DIET PER NEW ORDER. TOLERATED WELL, NOW ASKS FOR SUGAR FREE PUDDING, PROVIDED SAME. STATES APPETITE IS BACK AND FEELS MUCH BETTER.
--- NOTE | 2019-09-30 10:41 | PM.DS.1 ---
History of Present Illness History of Present Illness Date Patient Seen: 09/30/19 Time Patient Seen: 10:41 Chief complaint: diabetic issues, elevated sugars Narrative: As per DEDE Hargrove: Curtis Mari is 49-year-old male with history significant for diabetes type 2, congestive heart failure, hypertension, and nonhealing wounds bilateral lower extremities who presents to the ER persistent nausea vomiting. He states states his symptoms began 1 day ago with nausea vomiting and associated abdominal cramping fatigue and weakness. He was recently admitted on September 05 and discharged on September 07 for the same. During that admission he was found to have an A1c of 14 and discharged on Lantus 10 units and correctional scale insulin. Patient states he has been taking any his oral antidiabetic medications but ran out of his insulins due to affordability. He returns today with continued nausea vomiting and persistent hyperglycemia. He has been established at [facility] in [facility] and had a follow up appointment but was unable to make it due to a work emergency which he needed to be present for. He has not been in communication with a clinician there since he was discharged. He confirms that he usually uses 5 units of regular insulin with meals, but is not regular about checking prandial blood sugars. He takes metformin, glipizide and states he has been prescribed NovoLog which he has run out. He has on bout of diarrhea 2 days ago and has had normal soft stool bowel movements. He states he has the chills and is shaking under the blankets today. He has exertional shortness of breath which has worsened over the last couple of days, denies chest pain, abdominal pain, dysuria or constipation. He has currently under the care of Dr. Huerta at the wound care clinic nonhealing wounds bilateral lower extremities. Has a history of a left anterior and right lateral wounds as well as calluses the soles of both feet which have been treated with debridement. Both lower extremities are wrapped in compression wraps and he states that he still has a wound on the back of his right calf which is healing well. He was recently treated wt Augmentin for his right leg wound which on review of cultures reveals Enterococcus faecialis. Patient is afebrile, blood pressure 152/98, heart rate 81, respirations 18 saturating 98% on room air, he weighs 120.2 kg with a BMI of 36.9. WBC 10.1, RBC 6.2, hemoglobin 17.9, hematocrit 51.5, platelet count 349, INR is 1.1, sodium 135, potassium 3.3, chloride 95, bicarb 24, BUN 31, creatinine 1.39, GFR 54.3, total bilirubin is 2.1, AST 45, ALT 57, albumin is 4.9. He has a borderline elevated gap calculated at 16. The patient will be hydrated overnight with an attempt to get his diabetes under better control and correct in an MICHAEL and and is placed in observation status. Discharge Providers Provider Date of admission: 09/29/19 23:06 Discharge Date: 09/30/19 Primary care physician: Toño Ovalles Consults: 09/29/19 23:20 Consult to Dietitian, Adult Routine Comment: Reason For Exam: hyperglycemia Discharge provider: Fred Blue DO Summary Hospital Course Discharge Diagnosis: 1. Nausea and vomiting, acute, acute, present on admission, active. 2. Acute dehydration, present on admission, active 3. Diabetes type 2, not currently using insulin, with non acidotic hyperglycemia with ketosis, present on admission, active. 4. Nonhealing wounds bilateral lower extremities, chronic, stable. 5. Hypertension, chronic, stable. 6. Congestive heart failure, unknown type, present on admission, stable. Hospital Course: Patient was admitted for persistent nausea and vomiting likely with acute dehydration. By the morning following admission after IV fluids and insulin to control his blood sugars, he was tolerating a diet and labs had shown improvement. Patient was discharged home and plans to follow up with his primary care provider. Patient has been having difficulty affording insulin, but states he has been receiving it lately from the [facility] pharmacy at a somewhat reduced mckeon. Exam Vital Signs (past 8 hours): - 09/30/19 04:50 09/30/19 08:00 Temperature 98.4 F 98.1 F Pulse Rate 73 69 Respiratory Rate 16 15 Blood Pressure 126/71 140/87 Pulse Oximetry 96 98 Oxygen Delivery Method Room Air Oxygen Flow Rate 0 Narrative Exam Narrative: GENERAL APPEARANCE: well developed, obese male, in no acute distress. HEENT: Normocephalic, wears glasses, PERRLA, conjunctiva clear, EOMs intact without nystagmus, no sinus tenderness to percussion, no rhinorrhea, mucous membranes are moist and pink without lesions or exudate.thick well kept reyes. NECK/THYROID: neck supple, no JVD, no thyromegaly, trachea midline. LYMPH NODES: no cervical or supraclavicular lymphadenopathy. SKIN: [place], warm and dry, no visible lesions, bilateral lower extremities with wound care dressings/wrap distal from the knee to the foot, mole skin on the distal sole of bilateral feet. HEART: regular rate and rhythm, S1-S2, no murmur, no rubs or gallops, brisk capillary refill, no edema LUNGS: clear to auscultation bilaterally, no coarseness crackles or wheezing, no cough present CHEST: Symmetrical movement, no accessory muscle use, good tidal volume. ABDOMEN: Soft, no distention, no abdominal pain on palpation, no guarding or peritoneal signs, no organomegaly, no flank or suprapubic tenderness, active bowel tones. EXTREMITIES: moves all extremities, strength is 5/5 and symmetrical, no deformities or joint effusions. NEUROLOGIC: AAO x3, cranial nerves II-XII grossly intact, sensation reported as intact on exam, hearing grossly normal to speech. PSYCH: Good judgment, linear thought process, cooperative, appropriate with stable behavior. Objective Labs Result Diagrams: 09/30/19 04:38 09/30/19 04:38 Labs: Laboratory Results - last 24 hr 09/29/19 09/29/19 09/29/19 20:05 20:05 20:05 WBC 10.1 RBC 6.20 H Hgb 17.9 H Hct 51.5 MCV 83.1 MCH 28.9 MCHC 34.8 RDW 14.1 Plt Count 349 Neut % (Auto) 63.0 Lymph % (Auto) 26.9 Brantley % (Auto) 9.0 Eos % (Auto) 0.7 L Baso % (Auto) 0.4 Neut # (Auto) 6300 Lymph # (Auto) 2700 Brantley # (Auto) 900 Eos # (Auto) 100 Baso # (Auto) 0 PT 12.3 INR 1.1 APTT 30 Sodium 135 L Potassium 3.3 L Chloride 95 L Carbon Dioxide 24 BUN 31 H Creatinine 1.39 H Estimated GFR 54.3 L BUN/Creatinine Ratio 22.3 H Glucose 193 H Calcium 10.0 Magnesium Total Bilirubin 2.1 H AST 45 ALT 57 H Alkaline Phosphatase 61 NT-Pro-B Natriuret Pep Total Protein 9.3 H Albumin 4.9 Globulin 4.4 H Albumin/Globulin Ratio 1.1 Lipase 115 COVID-19 PCR 09/29/19 09/29/19 09/30/19 20:05 22:34 04:38 WBC 8.0 RBC 5.26 Hgb 15.2 Hct 44.2 MCV 83.9 MCH 28.9 MCHC 34.4 RDW 13.5 Plt Count 238 Neut % (Auto) 52.1 Lymph % (Auto) 37.5 Brantley % (Auto) 8.5 Eos % (Auto) 1.6 L Baso % (Auto) 0.3 Neut # (Auto) 4200 Lymph # (Auto) 3000 Brantley # (Auto) 700 Eos # (Auto) 100 Baso # (Auto) 0 PT INR APTT Sodium Potassium Chloride Carbon Dioxide BUN Creatinine Estimated GFR BUN/Creatinine Ratio Glucose Calcium Magnesium Total Bilirubin AST ALT Alkaline Phosphatase NT-Pro-B Natriuret Pep 49 Total Protein Albumin Globulin Albumin/Globulin Ratio Lipase COVID-19 PCR Negativen 09/30/19 04:38 WBC RBC Hgb Hct MCV MCH MCHC RDW Plt Count Neut % (Auto) Lymph % (Auto) Brantley % (Auto) Eos % (Auto) Baso % (Auto) Neut # (Auto) Lymph # (Auto) Brantley # (Auto) Eos # (Auto) Baso # (Auto) PT INR APTT Sodium 134 L Potassium 3.7 Chloride 101 Carbon Dioxide 26 BUN 27 H Creatinine 1.16 Estimated GFR > 60.0 BUN/Creatinine Ratio 23.3 H Glucose 144 H Calcium 8.4 Magnesium 1.6 Total Bilirubin 1.4 H AST 32 ALT 38 Alkaline Phosphatase 43 NT-Pro-B Natriuret Pep Total Protein 6.9 Albumin 3.6 Globulin 3.3 Albumin/Globulin Ratio 1.1 Lipase COVID-19 PCR Discharge Plan Discharge Plan Patient Disposition: Home Discharge comment: You were admitted to the hospital with high blood sugars and dehydation. Please continue to watch your diet and take your insulin as prescribed. Please try and follow up with your PCP as previously scheduled. Discharge orders & Medications Prescriptions: Continued metformin 500 mg Tablet 850 mg PO BID RF: 0 carvedilol 25 mg Tablet 25 mg PO 1300 RF: 0 amlodipine 10 mg Tablet 10 mg PO DAILY RF: 0 lisinopril 40 mg Tablet 40 mg PO DAILY RF: 0 chlorthalidone 25 mg tablet 25 mg PO DAILY RF: 0 (DME) pen needle, diabetic [Pen Needle] 31 gauge x 5/16 needle See Rx Instructions .ROUTE .MEDSUPPLY Qty: 60 RF: 0 metoclopramide HCl [Reglan] 5 mg tablet 5 mg PO QAC 30 Days Qty: 90 RF: 0 Lantus Solostar U-100 Insulin 10 units SUBCUT BID RF: 0 Novolog PenFill U-100 Insulin 5 units SUBCUT TID RF: 0 Follow up/Referrals: Toño Ovalles [Primary Care Provider] - (Please keep your follow up appointment.) Diet/Activity/Treatments Diet: Diet as Tolerated and Carb-consistent/Diabetic Activity: As tolerated Visit Report/Discharge Packet Instructions: DI for Dehydration -- Adult, DI for Hyperglycemia -- Adult Visit Report Forms: Patient Portal/API, Stroke Signs & Symptoms Discharge Data Primary Care Provider: Toño Ovalles Attending Provider: Leona Short Admit Date/Time: 09/29/19 23:06 Discharges patient from system. Discharge Date/Time: 09/30/19 13:15 Quality VTE Deep Vein Thrombosis/Pulmonary Embolism Present on Admission: No
[2019-09-30] MEDS: MAGNESIUM SULFATE 2 GM/50 ML PIGGYBACK IV (10:48)
[2019-09-30 11:36] VITALS: BP 155/97; PULSE 86; RESP 15; TEMP 36.2; O2SAT 98
--- NOTE | 2019-09-30 12:05 | CM.DPC ---
DCP/Assessment: Reviewed chart. Patient is a 49yr old male admitted to [facility] with elevated sugars. PCP is Dr. Ovalles. Primary payor is 1)[employer] 2)Self pay. Met with patient this AM during rounds. Patient alert and oriented at time of visit. 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 Patient hopes to d/c home today. Patient believes that his sugars were high because he was having some difficulty with insurance to get appropriate diabetic medications. Patient reports that it is now resolved and he has the right medication. Dr. Blue anticipates d/c later today. Patient has weekly dressing changes at wound care center at [facility]. Patient identifies no d/c planning needs. P: Home today. CHUCHO Steen Discharge Planning/Care Management Advanced directive, confirm from FAMILY Start: 09/30/19 00:51 Freq: Q24H Status: Active Protocol: Document 09/30/19 00:51 MP (Rec: 09/30/19 01:38 MP [id number]) Advance Directive, confirm on record Time 00:51 Person contacted Patient Copy received No CM Discharge Assessment Start: 09/30/19 12:02 Freq: Status: Active Protocol: Document 09/30/19 12:02 KJS (Rec: 09/30/19 12:05 KJS [id number]) Discharge Planning Assessment Assigned Distribution Center Administrator CHUCHO Steen Contact Information An Vicente (son) [phone] Advance Directives? No Advance Directives on File No History Provided By Patient,Medical Record Prior Living Arrangements Apartment/Condo Household Members spouse,children Type of transporation used prior to Drives own vehicle admit Independent with ADL's Yes Is patient alert and oriented? Yes Caregiver for Another Yes: family at home Community Services used prior to Wound Care admission: Comment Weekly wound care at .. Barriers to Discharge No Comment He has supportive family members. Discharge Plan Home Transportation Arrangement Family Referrals Initiated None needed Whiteboard Updated in Patient Room with Yes name and ext. # of Distribution Center Administrator Review Status In Process Next Review Type Continued Stay Review
[2019-10-01 10:21] LABS: COVID19 -Nasal RAPID Negative (Negative)
== END 2019-09-30 13:15 | disposition home or self-care (01) ==
LOC: ED 22:23 → AC 23:07
PROVIDERS: Admitting Provider Nurse Practitioner Family; Emergency Provider Emergency Medicine; PCP Family Medicine; Visit Provider Nurse Practitioner Family
DX: E86.0 Dehydration (principal); E11.65 Type 2 diabetes mellitus with hyperglycemia; R11.2 Nausea with vomiting, unspecified; I50.9 Heart failure, unspecified; Z79.4 Long term (current) use of insulin; Z11.59 Encounter for screening for other viral diseases
CPT/HCPCS: 36415; 80053; 82962; 83690; 83735; 83880; 85025; 85610; 85730; 87635; 96361; 96365; 96366; 96372; 96375; 99284; G0378; J1644; J2405

== ENCOUNTER → 2019-10-02 12:05 | Outpatient (CLI) | payer OTHER, SELFPAY ==
[2019-09-30] VITALS: BMI 36.9
== END ==
PROVIDERS: PCP Family Medicine; Referring Provider Family Medicine; Visit Provider Family Medicine
DX: S81.801A Unspecified open wound, right lower leg, initial encounter (principal)
CPT/HCPCS: 29581

== ENCOUNTER → 2019-10-09 11:33 | Outpatient (CLI) | payer OTHER, SELFPAY ==
[2019-09-30] VITALS: BMI 36.9
== END ==
PROVIDERS: PCP Family Medicine; Referring Provider Family Medicine; Visit Provider Family Medicine
DX: I77.6 Arteritis, unspecified (principal); L97.911 Non-pressure chronic ulcer of unspecified part of right lower leg limited to breakdown of skin; L97.211 Non-pressure chronic ulcer of right calf limited to breakdown of skin; L95.9 Vasculitis limited to the skin, unspecified; R77.9 Abnormality of plasma protein, unspecified
CPT/HCPCS: 97597

== ENCOUNTER → 2019-10-16 08:53 | Outpatient (CLI) | payer OTHER, SELFPAY ==
[2019-09-30] VITALS: BMI 36.9
== END ==
PROVIDERS: PCP Family Medicine; Referring Provider Family Medicine; Visit Provider Family Medicine
DX: I87.2 Venous insufficiency (chronic) (peripheral) (principal); L97.811 Non-pressure chronic ulcer of other part of right lower leg limited to breakdown of skin; L97.211 Non-pressure chronic ulcer of right calf limited to breakdown of skin
CPT/HCPCS: 29580

== ENCOUNTER → 2019-10-23 09:50 | Outpatient (CLI) | payer OTHER, SELFPAY ==
[2019-09-30] VITALS: BMI 36.9
== END ==
PROVIDERS: PCP Family Medicine; Referring Provider Family Medicine; Visit Provider Family Medicine
DX: I77.6 Arteritis, unspecified (principal); L97.211 Non-pressure chronic ulcer of right calf limited to breakdown of skin; L97.811 Non-pressure chronic ulcer of other part of right lower leg limited to breakdown of skin; L95.9 Vasculitis limited to the skin, unspecified; R77.9 Abnormality of plasma protein, unspecified; L08.9 Local infection of the skin and subcutaneous tissue, unspecified
CPT/HCPCS: 11042; 87070; 87075; 87077; 87186; 87205; 99213; 99214

== ENCOUNTER 2020-02-02 21:55 | Emergency (ER) | payer OTHER, SELFPAY ==
[2020-02-02 21:59] VITALS: BP 202/120; PULSE 87; RESP 22; TEMP 36.4; O2SAT 97
[2020-02-02 22:09] VITALS: BP 205/120; PULSE 87; RESP 20; TEMP 36.4; O2SAT 97
--- NOTE | 2020-02-02 22:22 | ED.SKABFB ---
HPI - Skin/Abscess/Foreign Bdy General Chief complaint: Skin/Abscess/Foreign Body Stated complaint: states cellulitis left foot Time Seen by Provider: 02/02/20 22:22 Source: patient Mode of arrival: Ambulatory History of Present Illness HPI narrative: 49-year-old gentleman, type 2 diabetic with previous episodes of lower extremity ulcers, wound care, surgeries. Presents today complaining of increasing pain and redness in his left foot and had noticed of blister forming under the thick callus that now is showing ulceration under the 1st metatarsal. He has mild peripheral neuropathy but can still feel this is quite painful and is having trouble walking on it. He notes no fevers or chills. Does note that he has chronic edema of the lower extremities and the left foot seems to be a bit worse. Related Data Home Medications Medication Instructions Recorded Confirmed amlodipine 10 mg PO DAILY 03/14/18 09/30/19 carvedilol 25 mg PO 1300 03/14/18 09/30/19 lisinopril 40 mg PO DAILY 03/14/18 09/30/19 metformin 850 mg PO BID 03/14/18 09/30/19 chlorthalidone 25 mg PO DAILY 03/15/18 09/30/19 Lantus Solostar U-100 Insulin 10 units SUBCUT BID 09/30/19 09/30/19 Novolog PenFill U-100 Insulin 5 units SUBCUT TID 09/30/19 09/30/19 Previous Rx's Medication Instructions Recorded pen needle, diabetic [Pen Needle] #60 each 09/08/19 Allergies Allergy/AdvReac Type Severity Reaction Status Date / Time No Known Drug Allergies Allergy Verified 09/05/19 10:04 Review of Systems Review of Systems Narrative: Pertinent positive and negative findings as per HPI Remainder of review of systems is otherwise unremarkable for ENT: No sore throat, neck pain, ear pain CV: Chest pain, palpitations, Respiratory: Cough, wheeze, dyspnea GI: Nausea, vomiting, diarrhea, change in bowel habits, black or bloody stools : Dysuria, hematuria, flank pain MS: Muscle weakness, numbness, joint swelling or warmth Neuro: Syncope, dizziness, Patient History Medical History (Updated 02/03/20 @ 01:24 by Hue Tong MD) Congestive heart failure Diabetes mellitus Hypertension Ulcer of left lower leg Ulcer of right leg Surgical History History of foot surgery Family History Father Myocardial infarction Mother Diabetes mellitus Brother Diabetes mellitus Social History household members: spouse and children Smoking Status: Former smoker alcohol intake: never Smoking Status: Former smoker alcohol intake frequency: 0-2 drinks per day Substance Use Type: marijuana Exam Narrative Exam Narrative: General: no acute distress. Able to give a complete and coherent history. Well-nourished well-developed HEENT: Moist mucous membranes, normal sclera with reactive pupils, Neck: No JVD, supple Respiratory: Lungs are clear to auscultation, no wheezing no rales no rhonchi. Full and symmetrical air movement Cardiac: Regular rate and rhythm no murmurs no bruits Abdomen: Soft nontender good bowel tones, no flank pain Skin: Warm and dry, no rashes Neurologic: Grossly neurologically intact with no obvious asymmetries or abnormalities, mild diminished sensation bilateral lower extremities Extremities: Left foot slightly more swollen than the right, increased rubor over the dorsum of the foot, large callus over the 1st metatarsal with blistering underneath some drainage and I suspect a larger wound once the callus is unroofed. Psych: Cooperative, appropriate insight and affect Initial Vital Signs Initial Vital Signs: Vital Signs Temperature 97.6 F 02/02/20 21:59 Pulse Rate 87 02/02/20 21:59 Respiratory Rate 22 02/02/20 21:59 Blood Pressure 202/120 H 02/02/20 21:59 Pulse Oximetry 97 02/02/20 21:59 Course Orders Ordered: ED Orders 02/02/20 20:30 CBC Auto Diff [Complete Blood Count AUTO DIFF] Stat CMP [Comprehensive Metabolic Panel] Stat Lactate (Lactic Acid) Stat 02/02/20 22:30 Wound Culture and Gram Stain Stat 02/02/20 22:54 XR foot LT min 3V Stat Urinalysis and Microscopic Stat 02/02/20 23:07 Blood Culture Stat Discontinued Medications Vancomycin HCl/Dextrose (Vancomycin) 1,500 mg in 300 mls @ 200 mls/hr IV NOW ONE Stop: 02/03/20 00:23 Last Admin: 02/03/20 00:55 Dose: 200 mls/hr Documented by: Levofloxacin (Levaquin) 750 mg in 150 mls @ 100 mls/hr IV NOW ONE Stop: 02/03/20 00:23 Last Admin: 02/02/20 23:27 Dose: 100 mls/hr Documented by: DORYS Vital Signs Vital signs: Vital Signs - 8 hr 02/02/20 21:59 02/02/20 22:09 02/03/20 01:14 Temperature 97.6 F 97.6 F Pulse Rate 87 87 Respiratory Rate 22 20 Blood Pressure 202/120 H 205/120 H 163/95 H Pulse Oximetry 97 97 MDM - Skin/Abscess/Foreign Bdy Medical Records Attestation: I reviewed the patient's medical records. Lab Data Attestation: I reviewed the patient's lab results. Result diagrams: 02/02/20 20:30 02/02/20 20:30 Labs: Lab Results 02/02/20 02/02/20 02/02/20 Range/Units 20:30 20:30 20:30 WBC 6.5 (4.5-11.0) X10^3/uL RBC 4.98 (4.5-5.9) X10^6/uL Hgb 14.2 (13.5-17.5) g/dL Hct 42.6 (41-53) % MCV 85.5 (80-100) fL MCH 28.5 (26-34) PG MCHC 33.4 (30-36) % RDW 12.7 (11.6-14.8) % Plt Count 213 (150-400) X10^3/uL Neut % (Auto) 49.7 L (50-75) % Lymph % (Auto) 35.3 (25-40) % [place] % (Auto) 10.5 (3-14) % Eos % (Auto) 3.8 (2-4) % Baso % (Auto) 0.7 (0-2) % Neut # (Auto) 3200 (9912-3478) /uL Lymph # (Auto) 2300 (9898-8716) /uL [place] # (Auto) 700 (0-900) /uL Eos # (Auto) 200 (0-450) /uL Baso # (Auto) 0 (0-100) /uL Sodium 133 L (137-145) mmol/L Potassium 4.3 (3.4-5.1) mmol/L Chloride 98 (98-107) mmol/L Carbon Dioxide 31 (22-32) mmol/L BUN 18 (9-20) mg/dL Creatinine 0.87 (0.66-1.25) mg/dL Estimated GFR > 60.0 (>60) mL/min BUN/Creatinine Ratio 20.7 (6-22) Glucose 363 H (70-100) mg/dL Lactate 1.4 (0.7-2.1) mmol/L Calcium 8.9 (8.4-10.2) mg/dL Total Bilirubin 0.6 (0.2-1.3) mg/dL AST 26 (17-59) IU/L ALT 33 (<50) IU/L Alkaline Phosphatase 61 (38-126) U/L Total Protein 7.4 (6.3-8.2) g/dL Albumin 3.8 (3.5-5.0) g/dL Globulin 3.6 (1.7-4.1) g/dL Albumin/Globulin Ratio 1.1 (1.0-2.8) Imaging Data X-ray left foot: Attestation: I personally reviewed and interpreted this imaging study as follows: My Impression: No obvious subcutaneous air or osteomyelitis MDM Narrative Medical decision making narrative: 49-year-old gentleman type 2 diabetic with developing diabetic foot ulcer. Prior ulcers have grown Enterococcus as well as various types of Staph coccus. Prior cultures have indicated sensitivities to both vancomycin Levaquin So this is starting regimen for antibiotics today. His blood pressure is elevated however he states he did not take his usual lisinopril today. Given the large wound that may need surgical debridement, his history with previous ulcers and need for wound care patient will be admitted for IV antibiotics. Will need podiatry consult in the morning. At time of admission, there is no evidence of sepsis, osteomyelitis or necrotizing fasciitis. Care is reviewed with Ms. Sy, hospitalist DEDE. He is safe for transfer to the floor Discharge Plan Departure Patient Disposition: Admitted As Inpatient Clinical Impression: Diabetic foot ulcer Qualifiers: Diabetic foot ulcer location: midfoot Diabetes mellitus type: type 2 Laterality: left Non-pressure ulcer stage: unspecified non-pressure ulcer stage Qualified Code(s): E11.621 - Type 2 diabetes mellitus with foot ulcer Cellulitis Qualifiers: Site of cellulitis: extremity Site of cellulitis of extremity: lower extremity Laterality: left Qualified Code(s): L03.116 - Cellulitis of left lower limb Admit Date/Time: 02/03/20 01:16 Admit Provider: Shelli Sy
[2020-02-02 22:44] LABS: Add Manual Diff / Slide Review NO; Basophils Absolute Auto 0 /uL (0-100); Basophils Percent Auto 0.7 % (0-2); Eosinophils Absolute Auto 200 /uL (0-450); Eosinophils Percent Auto 3.8 % (2-4); Hematocrit 42.6 % (41-53); Hemoglobin 14.2 g/dL (13.5-17.5); Lymphocytes Absolute Auto 2300 /uL (1100-4500); Lymphocytes Percent Auto 35.3 % (25-40); Mean Corpuscular HGB Conc 33.4 % (30-36); Mean Corpuscular Hemoglobin 28.5 PG (26-34); Mean Corpuscular Volume 85.5 fL (80-100); Monocytes Absolute Auto 700 /uL (0-900); Monocytes Percent Auto 10.5 % (3-14); Neutrophils Absolute Auto 3200 /uL (1500-7000); Neutrophils Percent Auto 49.7 % (50-75); Platelet Count 213 X10^3/uL (150-400); Red Blood Cell Count 4.98 X10^6/uL (4.5-5.9); Red Cell Distribution Width 12.7 % (11.6-14.8); White Blood Cell Count 6.5 X10^3/uL (4.5-11.0)
[2020-02-02 22:52] LABS: Alanine Aminotransferase 33 IU/L (<50); Albumin 3.8 g/dL (3.5-5.0); Albumin Globulin Ratio 1.1 (1.0-2.8); Alkaline Phosphatase 61 U/L (38-126); Aspartate Aminotransferase 26 IU/L (17-59); BUN Creatinine Ratio 20.7 (6-22); Bilirubin Total 0.6 mg/dL (0.2-1.3); Blood Urea Nitrogen 18 mg/dL (9-20); Calcium 8.9 mg/dL (8.4-10.2); Carbon Dioxide 31 mmol/L (22-32); Chloride 98 mmol/L (98-107); Estimated Glomerular Filt Rate > 60.0 mL/min (>60); Globulin 3.6 g/dL (1.7-4.1); Glucose 363 mg/dL (70-100); HEMOLYSIS < 15 (0-50); Potassium 4.3 mmol/L (3.4-5.1); Sodium 133 mmol/L (137-145); Total Protein 7.4 g/dL (6.3-8.2)
--- NOTE | 2020-02-02 22:54 | DI.RAD.S_ITS ---
PROCEDURE: XR FOOT LT MIN 3V INDICATIONS: left foot pain, possible osteomyelitis TECHNIQUE: 3 views of the foot were acquired. COMPARISON: [facility], CR, XR FOOT RT MIN 3V, 03/26/2018, 11:19. FINDINGS: Bones: No fracture. Postsurgical changes involving the distal 5th metatarsal with chronic appearance. No focal osseous destruction identified. Diffuse osteopenia. Hindfoot and midfoot joint degeneration. Large plantar calcaneal spur Soft tissues: Scattered vascular calcifications. IMPRESSION: No focal osseous destruction to suggest advanced osteomyelitis. If there is persistent clinical concern, continued short interval radiographic followup or contrast enhanced MRI could be performed to assess for early infection. Dictated by: Yong Short M.D. on 02/03/2020 at 8:56 Approved by: Yong Short M.D. on 02/03/2020 at 8:58
[2020-02-02 23:09] LABS: Lactate (Lactic Acid) 1.4 mmol/L (0.7-2.1)
[2020-02-02] MEDS: levoFLOXacin 750 MG/150 ML PIGGYBACK 100 MG IV (23:27)
[2020-02-03] MEDS: VANCOMYCIN 1,500 MG/300 ML PIGGYBACK 200 MG IV (00:55)
[2020-02-03 01:14] VITALS: BP 163/95
--- NOTE | 2020-02-03 01:44 | P.HP_ITS ---
History of Present Illness History of Present Illness Chief complaint: states cellulitis left foot Patient History Medical History Congestive heart failure Diabetes mellitus Hypertension Ulcer of left lower leg Ulcer of right leg Surgical History History of foot surgery Family & Social History Family History Father Myocardial infarction Mother Diabetes mellitus Brother Diabetes mellitus Social History: household members spouse,children Tobacco & Substance use: Tobacco type cigarettes,cannabis/marijuana Smoking Status Former smoker alcohol intake never alcohol intake frequency 0-2 drinks per day Substance Use Type marijuana Meds Home Medications and Allergies Home Medications Medication Instructions Recorded Confirmed Type amlodipine 10 mg PO DAILY 03/14/18 09/30/19 History carvedilol 25 mg PO 1300 03/14/18 09/30/19 History lisinopril 40 mg PO DAILY 03/14/18 09/30/19 History metformin 850 mg PO BID 03/14/18 09/30/19 History chlorthalidone 25 mg PO DAILY 03/15/18 09/30/19 History pen needle, diabetic [Pen Needle] #60 each 09/08/19 09/30/19 Rx Lantus Solostar U-100 Insulin 10 units SUBCUT BID 09/30/19 09/30/19 History Novolog PenFill U-100 Insulin 5 units SUBCUT TID 09/30/19 09/30/19 History Allergies Allergy/AdvReac Type Severity Reaction Status Date / Time No Known Drug Allergies Allergy Verified 09/05/19 10:04 Exam Vital Signs (past 8 hours): - 02/02/20 21:59 02/02/20 22:09 02/03/20 01:14 Temperature 97.6 F 97.6 F Pulse Rate 87 87 Respiratory Rate 22 20 Blood Pressure 202/120 H 205/120 H 163/95 H Pulse Oximetry 97 97 Oxygen Delivery Method Room Air Narrative Exam Narrative: General: Patient is a well-developed, well-nourished in no distress at this time. HEENT: Normocephalic, atraumatic, extraocular muscles intact, oral pharynx is clear and mucous membranes are moist. Neck is supple and symmetric, trachea is midline, no adenopathy, no thyroid enlargement, nontender, no masses palpated. Negative for JVD Chest: Normal AP diameter and contour without kyphoscoliosis, no nasal flaring, retractions, or tachypneic labored Lungs: Auscultation of all lung guidry are clear without adventitious sounds, wheezes, rhonchi, or rales. Cardio: S1 & S2 with regular rate and rhythm without murmur, rubs, or gallops, no carotid bruit, no cardiac pulsations present. Abdomen: Soft nontender, negative for organomegaly, or masses. Bowel sounds are present in all 4 quadrants without guarding or rebound, no CVA tenderness. Musculoskeletal: Muscle strength and tone are equal within normal limits, no deformity, Fermin crepitus, effusions, cyanosis, clubbing or edema present. Full range of motion intact radial and pedal pulses are normal. Skin: Warm dry and intact without rashes, ulcerations or petechiae. Neuro: Alert and orientated x3, strength is +5/5 in all extremities, sensation to touch intact, no gross deficits noted of cranial nerves. Psych: Patient has a well-kept appearance, appropriate affect, mental status attitude thought context and judgment are appropriate for age. Objective Labs Result Diagrams: 02/02/20 20:30 02/02/20 20:30 Labs: Laboratory Results - last 24 hr 02/02/20 02/02/20 02/02/20 20:30 20:30 20:30 WBC 6.5 RBC 4.98 Hgb 14.2 Hct 42.6 MCV 85.5 MCH 28.5 MCHC 33.4 RDW 12.7 Plt Count 213 Neut % (Auto) 49.7 L Lymph % (Auto) 35.3 [place] % (Auto) 10.5 Eos % (Auto) 3.8 Baso % (Auto) 0.7 Neut # (Auto) 3200 Lymph # (Auto) 2300 [place] # (Auto) 700 Eos # (Auto) 200 Baso # (Auto) 0 Sodium 133 L Potassium 4.3 Chloride 98 Carbon Dioxide 31 BUN 18 Creatinine 0.87 Estimated GFR > 60.0 BUN/Creatinine Ratio 20.7 Glucose 363 H Lactate 1.4 Calcium 8.9 Total Bilirubin 0.6 AST 26 ALT 33 Alkaline Phosphatase 61 Total Protein 7.4 Albumin 3.8 Globulin 3.6 Albumin/Globulin Ratio 1.1 Assessment & Plan Assessment & Plan narrative: Left foot non pressure ulcerations with cellulitis and possible osteomyelitis -wound cultures sent from wound care clinic, blood cultures obtained in ED -normal WBC, ESR , CRP, LDH, -started on vancomycin and Rocephin empiric coverage for Staph aureus and gram- negative bacteria -obtain MRI with and without contrast -consult pending from Dr. Leni Noland -NPO after midnight for likely OR debridement in a.m. -start DVT prophylaxis postop 2. Type 2 diabetes with neuropathy, poor control -hemoglobin A1c -Hold Home glipizide 10 mg b.i.d., metformin 1000 mg b.i.d. -Continue Lantus -will provide Lantus number of units at bedtime to be titrated up based on fasting morning blood sugar with a goal of 120. We are to add 1-5 unit of insulin each night that the prior morning's blood sugar was above 120. Monitor for hypoglycemia. -NovoLog low-dose sliding scale 3. Hypertension, uncertain control -patient hypertensive on admit with BP 179/113, normal renal function -resume home routine carvedilol 25 mg q.d., chlorthalidone 25 mg q.d., amlodipine 10 mg q.d., lisinopril 40 mg q.d.
[2020-02-03 02:14] VITALS: BP 164/96; PULSE 82; RESP 20; TEMP 36.9; O2SAT 98
== END 2020-02-03 02:39 | disposition left against medical advice (07) ==
LOC: ED 22:22 → AC 02-03 01:24 → ED 02-03 02:08
PROVIDERS: Emergency Provider Emergency Medicine; PCP Family Medicine; Referring Provider Emergency Medicine
DX: E11.621 Type 2 diabetes mellitus with foot ulcer (principal); L03.116 Cellulitis of left lower limb; I11.0 Hypertensive heart disease with heart failure; I50.9 Heart failure, unspecified
CPT/HCPCS: 36415; 73630; 80053; 83605; 85025; 87040; 87070; 87075; 87147; 87205; 96365; 96366; 96367; 99283; 99284; J1956

== ENCOUNTER 2020-04-06 20:38 | Emergency (ER) | payer OTHER, SELFPAY ==
[2020-04-06 20:41] VITALS: BP 163/101; PULSE 89; RESP 22; TEMP 36.6; O2SAT 98
--- NOTE | 2020-04-06 20:55 | DI.RAD.S_ITS ---
PROCEDURE: XR FOOT RT MIN 3V INDICATIONS: r/o osteo 1st met/great toe TECHNIQUE: 3 views of the foot were acquired. COMPARISON: [facility], CR, XR FOOT LT MIN 3V, 02/02/2020, 23:04. FINDINGS: Bones: No fracture. Great toe soft tissue swelling. No focal osseous destruction. Scattered degenerative subchondral sclerosis and spurring. Diffuse hindfoot and midfoot joint degeneration. IMPRESSION: No focal osseous destruction to suggest advanced osteomyelitis. If there is persistent clinical concern, continued short interval radiographic followup or contrast enhanced MRI could be performed to assess for early infection. Great toe soft tissue swelling. Dictated by: Yong Short M.D. on 04/06/2020 at 21:27 Approved by: Yong Short M.D. on 04/06/2020 at 21:29
[2020-04-06 21:13] LABS: Eosinophils Absolute Auto 200 /uL (0-450); Eosinophils Percent Auto 1.7 % (2-4); Monocytes Absolute Auto 700 /uL (0-900); Neutrophils Absolute Auto 5800 /uL (1500-7000)
[2020-04-06 21:15] LABS: INR 1.1 (0.9-1.3); Prothrombin Time 12.2 SECONDS (10.1-12.7)
[2020-04-06 21:17] LABS: PTT Partial Thromboplastin Tim 31 SECONDS (26.4-36.2)
[2020-04-06 21:19] LABS: Lactate (Lactic Acid) 1.8 mmol/L (0.7-2.1)
[2020-04-06 21:20] LABS: Add Manual Diff / Slide Review NO; Alanine Aminotransferase 31 IU/L (<50); Albumin 4.4 g/dL (3.5-5.0); Albumin Globulin Ratio 1.2 (1.0-2.8); Alkaline Phosphatase 65 U/L (38-126); Aspartate Aminotransferase 28 IU/L (17-59); BUN Creatinine Ratio 19.2 (6-22); Basophils Absolute Auto 100 /uL (0-100); Basophils Percent Auto 0.9 % (0-2); Bilirubin Total 0.7 mg/dL (0.2-1.3); Blood Urea Nitrogen 15 mg/dL (9-20); Calcium 9.3 mg/dL (8.4-10.2); Carbon Dioxide 28 mmol/L (22-32); Chloride 97 mmol/L (98-107); Estimated Glomerular Filt Rate > 60.0 mL/min (>60); Globulin 3.7 g/dL (1.7-4.1); Glucose 316 mg/dL (70-100); HEMOLYSIS < 15 (0-50); Hematocrit 43.1 % (41-53); Hemoglobin 14.7 g/dL (13.5-17.5); Lipase 1487 U/L (23-300); Lymphocytes Absolute Auto 2500 /uL (1100-4500); Lymphocytes Percent Auto 26.7 % (25-40); Mean Corpuscular HGB Conc 34.1 % (30-36); Mean Corpuscular Hemoglobin 28.7 PG (26-34); Mean Corpuscular Volume 84.1 fL (80-100); Monocytes Percent Auto 7.7 % (3-14); Platelet Count 273 X10^3/uL (150-400); Potassium 3.9 mmol/L (3.4-5.1); Red Blood Cell Count 5.12 X10^6/uL (4.5-5.9); Sodium 132 mmol/L (137-145); Total Protein 8.1 g/dL (6.3-8.2); White Blood Cell Count 9.2 X10^3/uL (4.5-11.0)
[2020-04-06 21:23] LABS: C-Reactive Protein Quant 3.4 mg/dL (<1.0)
[2020-04-06 21:32] LABS: Erythrocyte Sedimentation Rate 18 MM/HR (0-15)
[2020-04-06 21:37] LABS: Procalcitonin 0.07 ng/mL (<0.5)
--- NOTE | 2020-04-06 23:05 | ED_ITS ---
HPI - Skin/Abscess/Foreign Bdy General Chief complaint: Skin/Abscess/Foreign Body Stated complaint: rt foot pain, possible infection Time Seen by Provider: 04/06/20 22:40 Source: patient Mode of arrival: Ambulatory Limitations: no limitations History of Present Illness HPI narrative: Patient is a 49-year-old insulin-dependent diabetic male here for evaluation of potential infection to his right foot. Patient states that approximately 1 week ago he had a blood blister on the inside of his right big toe that popped. Since that time he has had some increasing redness to his foot. He states that he is taking his medications as directed. He does have chronic ulcerations to his right lower extremity that he use to see wound care for but no longer does. He manages these on their own. He states that they do not appear abnormal. He has not had any fevers. Related Data Home Medications Medication Instructions Recorded Confirmed amlodipine 10 mg PO DAILY 03/14/18 09/30/19 carvedilol 25 mg PO 1300 03/14/18 09/30/19 lisinopril 40 mg PO DAILY 03/14/18 09/30/19 metformin 850 mg PO BID 03/14/18 09/30/19 chlorthalidone 25 mg PO DAILY 03/15/18 09/30/19 Lantus Solostar U-100 Insulin 10 units SUBCUT BID 09/30/19 09/30/19 Novolog PenFill U-100 Insulin 5 units SUBCUT TID 09/30/19 09/30/19 Previous Rx's Medication Instructions Recorded pen needle, diabetic [Pen Needle] #60 each 09/08/19 levofloxacin 750 mg PO DAILY #10 tab 02/03/20 doxycycline hyclate 100 mg PO BID 10 Days #20 tab 04/06/20 Allergies Allergy/AdvReac Type Severity Reaction Status Date / Time No Known Drug Allergies Allergy Verified 09/05/19 10:04 Review of Systems Constitutional Constitutional: Denies fever(s) Cardiovascular Cardiovascular: Denies chest pain and Denies dyspnea Respiratory Respiratory: Denies dyspnea Musculoskeletal Comments: Right foot pain Integumentary/Breasts Comments: Redness the top of the right foot Neurologic Comments: No neurologic changes Hematologic/Lymphatic On Anticoagulants: No Allergic/Immunologic Allergic/Immunologic: Denies urticaria Patient History Medical History Congestive heart failure Diabetes mellitus Hypertension Ulcer of left lower leg Ulcer of right leg Surgical History History of foot surgery Family History Father Myocardial infarction Mother Diabetes mellitus Brother Diabetes mellitus Social History household members: spouse and children Smoking Status: Former smoker alcohol intake: never Smoking Status: Former smoker alcohol intake frequency: 0-2 drinks per day Substance Use Type: marijuana Exam Initial Vital Signs Initial Vital Signs: Vital Signs Temperature 97.9 F 04/06/20 20:41 Pulse Rate 89 04/06/20 20:41 Respiratory Rate 22 04/06/20 20:41 Blood Pressure 163/101 H 04/06/20 20:41 Pulse Oximetry 98 04/06/20 20:41 Const General: cooperative and comfortable Limitations: mental status not altered HENMT Head: normal to inspection and normocephalic Cardio Pulses: dorsalis pedis present on the right Skin Other: Patient does have thick calluses located throughout his right foot. The callus on the inside of the right big toe does have cracks in it. There is surrounding erythema. There is no drainage. Extrem General: capillary refill normal and No edema Psych Appearance: grossly normal and well kempt Course Orders Ordered: ED Orders 04/06/20 20:55 XR foot RT min 3V Stat 04/06/20 21:00 CRP [C-Reactive Protein Quant] Stat Complete Blood Count AUTO DIFF Stat Comprehensive Metabolic Panel Stat Erythrocyte Sedimentation Rate Stat Lactate (Lactic Acid) Stat Lipase Stat Partial Thromboplastin Time Stat Procalcitonin Stat Prothrombin Time INR Stat 04/06/20 21:16 Blood Culture Stat Discontinued Medications Doxycycline Hyclate (Doxycycline Hyclate 100 Mg Tablet) 100 mg PO NOW ONE Stop: 04/06/20 23:06 Last Admin: 04/06/20 23:11 Dose: 100 mg Documented by: JAUN Vital Signs Vital signs: Vital Signs - 8 hr 04/06/20 20:41 04/06/20 23:11 Temperature 97.9 F Pulse Rate 89 71 Respiratory Rate 22 18 Blood Pressure 163/101 H 150/95 H Pulse Oximetry 98 98 MDM - Skin/Abscess/Foreign Bdy Lab Data Attestation: I reviewed the patient's lab results. Result diagrams: 04/06/20 21:00 04/06/20 21:00 Labs: Lab Results 04/06/20 04/06/20 04/06/20 Range/Units 21:00 21:00 21:00 WBC 9.2 (4.5-11.0) X10^3/uL RBC 5.12 (4.5-5.9) X10^6/uL Hgb 14.7 (13.5-17.5) g/dL Hct 43.1 (41-53) % MCV 84.1 (80-100) fL MCH 28.7 (26-34) PG MCHC 34.1 (30-36) % RDW 14.0 (11.6-14.8) % Plt Count 273 (150-400) X10^3/uL Neut % (Auto) 63.0 (50-75) % Lymph % (Auto) 26.7 (25-40) % [place] % (Auto) 7.7 (3-14) % Eos % (Auto) 1.7 L (2-4) % Baso % (Auto) 0.9 (0-2) % Neut # (Auto) 5800 (5229-4884) /uL Lymph # (Auto) 2500 (5292-1988) /uL [place] # (Auto) 700 (0-900) /uL Eos # (Auto) 200 (0-450) /uL Baso # (Auto) 100 (0-100) /uL ESR (0-15) MM/HR PT 12.2 (10.1-12.7) SECONDS INR 1.1 (0.9-1.3) APTT 31 (26.4-36.2) SECONDS Sodium 132 L (137-145) mmol/L Potassium 3.9 (3.4-5.1) mmol/L Chloride 97 L (98-107) mmol/L Carbon Dioxide 28 (22-32) mmol/L BUN 15 (9-20) mg/dL Creatinine 0.78 (0.66-1.25) mg/dL Estimated GFR > 60.0 (>60) mL/min BUN/Creatinine Ratio 19.2 (6-22) Glucose 316 H (70-100) mg/dL Lactate (0.7-2.1) mmol/L Calcium 9.3 (8.4-10.2) mg/dL Total Bilirubin 0.7 (0.2-1.3) mg/dL AST 28 (17-59) IU/L ALT 31 (<50) IU/L Alkaline Phosphatase 65 (38-126) U/L C-Reactive Protein (<1.0) mg/dL Total Protein 8.1 (6.3-8.2) g/dL Albumin 4.4 (3.5-5.0) g/dL Globulin 3.7 (1.7-4.1) g/dL Albumin/Globulin Ratio 1.2 (1.0-2.8) Lipase 1487 H (23-300) U/L Procalcitonin 0.07 (<0.5) ng/mL 04/06/20 04/06/20 04/06/20 Range/Units 21:00 21:00 21:00 WBC (4.5-11.0) X10^3/uL RBC (4.5-5.9) X10^6/uL Hgb (13.5-17.5) g/dL Hct (41-53) % MCV (80-100) fL MCH (26-34) PG MCHC (30-36) % RDW (11.6-14.8) % Plt Count (150-400) X10^3/uL Neut % (Auto) (50-75) % Lymph % (Auto) (25-40) % [place] % (Auto) (3-14) % Eos % (Auto) (2-4) % Baso % (Auto) (0-2) % Neut # (Auto) (0805-2168) /uL Lymph # (Auto) (3317-2747) /uL [place] # (Auto) (0-900) /uL Eos # (Auto) (0-450) /uL Baso # (Auto) (0-100) /uL ESR 18 H (0-15) MM/HR PT (10.1-12.7) SECONDS INR (0.9-1.3) APTT (26.4-36.2) SECONDS Sodium (137-145) mmol/L Potassium (3.4-5.1) mmol/L Chloride (98-107) mmol/L Carbon Dioxide (22-32) mmol/L BUN (9-20) mg/dL Creatinine (0.66-1.25) mg/dL Estimated GFR (>60) mL/min BUN/Creatinine Ratio (6-22) Glucose (70-100) mg/dL Lactate 1.8 (0.7-2.1) mmol/L Calcium (8.4-10.2) mg/dL Total Bilirubin (0.2-1.3) mg/dL AST (17-59) IU/L ALT (<50) IU/L Alkaline Phosphatase (38-126) U/L C-Reactive Protein 3.4 H (<1.0) mg/dL Total Protein (6.3-8.2) g/dL Albumin (3.5-5.0) g/dL Globulin (1.7-4.1) g/dL Albumin/Globulin Ratio (1.0-2.8) Lipase (23-300) U/L Procalcitonin (<0.5) ng/mL MDM Narrative Medical decision making narrative: Patient is nontoxic appearing. He does not have a leukocytosis. Normal lactate. Only slightly elevated ESR and CRP. He does have an elevated lipase. This was ordered as part of the nurse initiated orders. The patient has no abdominal pain. Low suspicion for acute pancreat itis. He does have redness on the top of his right foot most likely from the crusting of the callus on the inside of his right great toe. Patient is tolerating oral intake. Will treat with antibiotics. He was given a 1st dose of the antibiotics here and the remainder was transmitted to the pharmacy of his choosing. He was given return precautions and follow-up instructions. He expressed understanding and agreement. Discharge Plan Departure Patient Disposition: Home Clinical Impression: Cellulitis Instructions: DI for Cellulitis -- Adult Activity Restrictions/Additional Instructions: A prescription for the antibiotics as electronically transmitted to [facility] start taking it as directed. Contact her primary provider for follow-up. Continue the rest your medications as directed. Return to the emergency department for any new or worsening symptoms Prescriptions: New doxycycline hyclate 100 mg tablet 100 mg PO BID 10 Days Qty: 20 RF: 0 No Action metformin 500 mg Tablet 850 mg PO BID RF: 0 carvedilol 25 mg Tablet 25 mg PO 1300 RF: 0 amlodipine 10 mg Tablet 10 mg PO DAILY RF: 0 lisinopril 40 mg Tablet 40 mg PO DAILY RF: 0 chlorthalidone 25 mg tablet 25 mg PO DAILY RF: 0 levofloxacin 750 mg tablet 750 mg PO DAILY Qty: 10 RF: 0 (DME) pen needle, diabetic [Pen Needle] 31 gauge x 5/16 needle See Rx Instructions .ROUTE .MEDSUPPLY Qty: 60 RF: 0 Lantus Solostar U-100 Insulin 10 units SUBCUT BID RF: 0 Novolog PenFill U-100 Insulin 5 units SUBCUT TID RF: 0 Referrals: Toño Ovalles MD [Primary Care Provider] -
[2020-04-06 23:11] VITALS: BP 150/95; PULSE 71; RESP 18; O2SAT 98
[2020-04-06] MEDS: DOXYCYCLINE HYCLATE 100 MG TABLET PO (23:11)
== END 2020-04-06 23:23 | disposition home or self-care (01) ==
PROVIDERS: Emergency Medicine; Emergency Provider Emergency Medicine; PCP Family Medicine
DX: L03.115 Cellulitis of right lower limb (principal)
CPT/HCPCS: 36415; 73630; 80053; 83605; 83690; 84145; 85025; 85610; 85651; 85730; 86140; 87040; 99281; 99284

== ENCOUNTER 2020-05-10 20:40 | Emergency (ER) | payer OTHER, SELFPAY ==
[2020-05-10 20:40] VITALS: BP 170/106; PULSE 98; RESP 14; TEMP 36.6; O2SAT 98; BMI 36.6
--- NOTE | 2020-05-10 20:48 | DI.RAD.S_ITS ---
PROCEDURE: XR CHEST 1V INDICATIONS: DKA TECHNIQUE: One view of the chest was acquired. COMPARISON: [facility], CR, XR CHEST 1V, 03/24/2018, 21:28. FINDINGS: Surgical changes and devices: None. Lungs and pleura: Lungs are clear. No pleural effusions or pneumothorax. Mediastinum: Mediastinal contours appear normal. Heart size is normal. Bones and chest wall: No suspicious bony lesions. Overlying soft tissues appear unremarkable. IMPRESSION: No acute cardiopulmonary pathology. Dictated by: Davin Stack M.D. on 05/10/2020 at 21:16 Approved by: Davin Stack M.D. on 05/10/2020 at 21:16
[2020-05-10] MEDS: METOCLOPRAMIDE 10 MG/2 ML INJ IV (20:52)
[2020-05-10] MEDS: SODIUM CHLORIDE 0.9% 1,000 ML 1000 ML IV ×2 (20:52→22:35)
[2020-05-10 21:01] LABS: Add Manual Diff / Slide Review NO; Basophils Absolute Auto 0 /uL (0-100); Basophils Percent Auto 0.4 % (0-2); Eosinophils Absolute Auto 0 /uL (0-450); Eosinophils Percent Auto 0.4 % (2-4); Hematocrit 46.6 % (41-53); Hemoglobin 15.7 g/dL (13.5-17.5); Lymphocytes Absolute Auto 1700 /uL (1100-4500); Lymphocytes Percent Auto 21.5 % (25-40); Mean Corpuscular HGB Conc 33.8 % (30-36); Mean Corpuscular Hemoglobin 28.3 PG (26-34); Mean Corpuscular Volume 83.9 fL (80-100); Monocytes Absolute Auto 1100 /uL (0-900); Neutrophils Absolute Auto 5200 /uL (1500-7000); Neutrophils Percent Auto 64.7 % (50-75); Platelet Count 233 X10^3/uL (150-400); Red Blood Cell Count 5.55 X10^6/uL (4.5-5.9); Red Cell Distribution Width 13.6 % (11.6-14.8); White Blood Cell Count 8.1 X10^3/uL (4.5-11.0)
[2020-05-10 21:13] LABS: Alanine Aminotransferase 42 IU/L (<50); Albumin 4.1 g/dL (3.5-5.0); Alkaline Phosphatase 59 U/L (38-126); Aspartate Aminotransferase 43 IU/L (17-59); BUN Creatinine Ratio 24.8 (6-22); Bilirubin Total 0.7 mg/dL (0.2-1.3); Blood Urea Nitrogen 25 mg/dL (9-20); Calcium 9.2 mg/dL (8.4-10.2); Carbon Dioxide 24 mmol/L (22-32); Chloride 98 mmol/L (98-107); Estimated Glomerular Filt Rate > 60.0 mL/min (>60); Glucose 284 mg/dL (70-100); HEMOLYSIS < 15 (0-50); Potassium 3.8 mmol/L (3.4-5.1); Sodium 133 mmol/L (137-145); Total Protein 8.1 g/dL (6.3-8.2)
[2020-05-10 21:14] LABS: Lactate (Lactic Acid) 1.2 mmol/L (0.7-2.1)
[2020-05-10 21:16] LABS: Ketones (Beta-Hydroxybutyrate) 0.34 mmol/L (<0.27)
[2020-05-10] MEDS: ONDANSETRON 4 MG ODT PREPACK 1 BOTTLE MISC (23:15)
[2020-05-10 23:25] VITALS: BP 139/88; PULSE 76; RESP 18; O2SAT 97
--- NOTE | 2020-05-11 01:50 | ED_ITS ---
HPI - Nausea/Vomiting/Diarrhea General Chief complaint: Nausea/Vomiting/Diarrhea Stated complaint: SUGAR LEVELS VERY HIGH. DIABETIC Time Seen by Provider: 05/10/20 20:44 Source: patient Mode of arrival: Ambulatory Limitations: no limitations History of Present Illness HPI Narrative: 49-year-old male smoker with history of type 2 diabetes, hypertension presents with a chief complaint of elevated blood sugars over the past few days and some nausea. He denies any headache or blurred vision. He denies runny nose, sore throat or cough. Denies chest pain or shortness of breath. He has no abdominal pain, dysuria, frequency or urgency. He states he has had no change in the dosing regimen of his diabetic meds and has been taking them as directed, however he states that he has not been so good about avoiding foods that he shouldn't eat. complaint: nausea Description of Vomiting: food contents Description of Diarrhea: none Associated Abdominal Pain: No Severity: mild Relieving factors: none Related Data Home Medications Medication Instructions Recorded Confirmed amlodipine 10 mg PO DAILY 03/14/18 09/30/19 carvedilol 25 mg PO 1300 03/14/18 09/30/19 lisinopril 40 mg PO DAILY 03/14/18 09/30/19 metformin 850 mg PO BID 03/14/18 09/30/19 chlorthalidone 25 mg PO DAILY 03/15/18 09/30/19 Lantus Solostar U-100 Insulin 10 units SUBCUT BID 09/30/19 09/30/19 Novolog PenFill U-100 Insulin 5 units SUBCUT TID 09/30/19 09/30/19 Previous Rx's Medication Instructions Recorded pen needle, diabetic [Pen Needle] #60 each 09/08/19 levofloxacin 750 mg PO DAILY #10 tab 02/03/20 Allergies Allergy/AdvReac Type Severity Reaction Status Date / Time No Known Drug Allergies Allergy Verified 09/05/19 10:04 Review of Systems Constitutional Constitutional: Denies chills, Denies fatigue, Denies fever(s), Denies frequent falls, Denies lethargy and Denies weakness Eyes Eyes: Denies change in vision, Denies eye discharge, Denies irritation and Denies loss of vision ENT Ears, Nose, Mouth, and Throat: Denies change in voice, Denies dizziness, Denies neck pain, Denies sore throat and Denies throat swelling Cardiovascular Cardiovascular: Denies chest pain, Denies irregular heart rhythm, Denies lightheadedness, Denies palpitations, Denies dyspnea, Denies dyspnea on exertion and Denies orthopnea Respiratory Respiratory: Denies cough, Denies dyspnea, Denies dyspnea on exertion and Denies wheezing Gastrointestinal Gastrointestinal: Denies abdominal pain, Denies change in bowel habits, Denies diarrhea, Reports nausea and Reports vomiting Musculoskeletal Musculoskeletal: Denies neck pain and Denies numbness Integumentary/Breasts Skin/Breast: Denies pruritus, Denies erythema, Denies rash and Denies wounds Neurologic Neurologic: Denies behavioral changes, Denies confusion, Denies dizziness, Denies frequent falls, Denies loss of vision, Denies numbness and Denies weakness Psychiatric Psychiatric: Denies anxiety, Denies behavioral changes, Denies confusion, Denies depression, Denies homicidal ideation and Denies suicidal ideation Endocrine Endocrine: Denies fatigue, Denies flushing and Denies palpitations Hematologic/Lymphatic Hematologic/Lymphatic: Denies easy bruising Allergic/Immunologic Allergic/Immunologic: Denies urticaria, Denies throat swelling and Denies wheezing Patient History Medical History Congestive heart failure Diabetes mellitus Hypertension Ulcer of left lower leg Ulcer of right leg Surgical History History of foot surgery Family History Father Myocardial infarction Mother Diabetes mellitus Brother Diabetes mellitus Social History household members: spouse and children Smoking Status: Current some day smoker alcohol intake: never Smoking Status: Current some day smoker alcohol intake frequency: 0-2 drinks per day Substance Use Type: marijuana Exam Narrative Exam Narrative: GENERAL: [49] year old patient appears stated age. Well- nourished, well-developed patient, in mild distress. HEAD: Atraumatic. Normocephalic. EYES: Pupils equal round and reactive. Extraocular motions intact. No scleral icterus. No injection or drainage. ENT: Nose without bleeding, purulent drainage. Throat without erythema, tons illar hypertrophy or exudate. Airway patent. NECK: Trachea midline. Non tender CARDIOVASCULAR: Regular rate and rhythm without murmurs, gallops, or rubs. RESPIRATORY: Clear to auscultation. Breath sounds equal bilaterally. No wheezes, rales, or rhonchi. GASTROINTESTINAL: Abdomen soft, non-tender, nondistended. EXTREMITIES: No edema or joint tenderness. BACK: Nontender without deformity or crepitance. No flank tenderness. NEURO: AOx3. SKIN: No rash or erythema of visible areas Initial Vital Signs Initial Vital Signs: Vital Signs Temperature 97.8 F 05/10/20 20:40 Pulse Rate 98 H 05/10/20 20:40 Respiratory Rate 14 05/10/20 20:40 Blood Pressure 170/106 H 05/10/20 20:40 Pulse Oximetry 98 05/10/20 20:40 Course Course Course Narrative: Patient with minimal symptoms and hyperglycemia. Very reassuring labs and improvement of symptoms with above-stated therapies. He has been taking medications as directed and there been no recent change but he admits to breaking some of his diet rules. No suggestion of hyperosmolar hyperglycemia, no indication for admission. Return precautions discussed at length and questions answered to his apparent satisfaction Orders Ordered: ED Orders 05/10/20 20:47 EKG-12 Lead Stat 05/10/20 20:48 XR chest 1V Stat 05/10/20 20:50 Complete Blood Count AUTO DIFF Stat Comprehensive Metabolic Panel Stat Ketones (Beta-Hydroxybutyrate) Stat Lactate (Lactic Acid) Stat Procalcitonin Stat Venous Blood Gas Stat 05/10/20 21:09 Blood Culture Stat Discontinued Medications Sodium Chloride (Normal Saline 0.9%) 1,000 mls @ 1,000 mls/hr IV BOLUS ONE Stop: 05/10/20 21:46 Last Infusion: 05/10/20 21:54 Dose: 0 mls/hr Documented by: Admin: 05/10/20 20:52 Dose: 1,000 mls/hr Documented by: KOBI Sodium Chloride (Normal Saline 0.9%) 1,000 mls @ 1,000 mls/hr IV BOLUS ONE Stop: 05/10/20 23:18 Last Infusion: 05/10/20 23:26 Dose: 0 mls/hr Documented by: Admin: 05/10/20 22:35 Dose: 1,000 mls/hr Documented by: AKINNEY Metoclopramide HCl (Metoclopramide 10 Mg/2 Ml Inj) 10 mg IV NOW ONE Stop: 05/10/20 20:48 Last Admin: 05/10/20 20:52 Dose: 10 mg Documented by: KOBI Ondansetron HCl (Ondansetron 4 Mg Odt Prepack) 1 bottle MIS SEEINSTR ONE Stop: 05/10/20 22:20 Last Admin: 05/10/20 23:15 Dose: 1 bottle Documented by: KRISHNA Vital Signs Vital signs: Vital Signs - 8 hr 05/10/20 20:40 05/10/20 23:25 Temperature 97.8 F Pulse Rate 98 H 76 Respiratory Rate 14 18 Blood Pressure 170/106 H 139/88 Pulse Oximetry 98 97 MDM - Nausea/Vomiting/Diarrhea Lab Data Result diagrams: 05/10/20 20:50 05/10/20 20:50 Labs: Lab Results 05/10/20 05/10/20 05/10/20 Range/Units 20:50 20:50 20:50 WBC 8.1 (4.5-11.0) X10^3/uL RBC 5.55 (4.5-5.9) X10^6/uL Hgb 15.7 (13.5-17.5) g/dL Hct 46.6 (41-53) % MCV 83.9 (80-100) fL MCH 28.3 (26-34) PG MCHC 33.8 (30-36) % RDW 13.6 (11.6-14.8) % Plt Count 233 (150-400) X10^3/uL Neut % (Auto) 64.7 (50-75) % Lymph % (Auto) 21.5 L (25-40) % [place] % (Auto) 13.0 (3-14) % Eos % (Auto) 0.4 L (2-4) % Baso % (Auto) 0.4 (0-2) % Neut # (Auto) 5200 (9352-9207) /uL Lymph # (Auto) 1700 (4673-7494) /uL [place] # (Auto) 1100 H (0-900) /uL Eos # (Auto) 0 (0-450) /uL Baso # (Auto) 0 (0-100) /uL Sodium 133 L (137-145) mmol/L Potassium 3.8 (3.4-5.1) mmol/L Chloride 98 (98-107) mmol/L Carbon Dioxide 24 (22-32) mmol/L BUN 25 H (9-20) mg/dL Creatinine 1.01 (0.66-1.25) mg/dL Estimated GFR > 60.0 (>60) mL/min BUN/Creatinine Ratio 24.8 H (6-22) Glucose 284 H (70-100) mg/dL Lactate 1.2 (0.7-2.1) mmol/L Calcium 9.2 (8.4-10.2) mg/dL Total Bilirubin 0.7 (0.2-1.3) mg/dL AST 43 (17-59) IU/L ALT 42 (<50) IU/L Alkaline Phosphatase 59 (38-126) U/L Total Protein 8.1 (6.3-8.2) g/dL Albumin 4.1 (3.5-5.0) g/dL Globulin 4.0 (1.7-4.1) g/dL Albumin/Globulin Ratio 1.0 (1.0-2.8) Procalcitonin 0.30 (<0.5) ng/mL Ketones 0.34 H (<0.27) mmol/L Point of Care Testing Glucose POC 256 Discharge Plan Departure Patient Disposition: Home Clinical Impression: Acute hyperglycemia Instructions: DI for Hyperglycemia -- Adult Activity Restrictions/Additional Instructions: *You have been diagnosed with [hyperglycemia and nausea] *What to do: *Take medications as directed *Follow up with your primary care provider in 2-3 days, call for an appointment. Let them know you were seen in the Emergency Department and that we ask that you be seen in follow up *Return to ER if you should have any new, worsening or concerning symptoms Prescriptions: No Action metformin 500 mg Tablet 850 mg PO BID RF: 0 carvedilol 25 mg Tablet 25 mg PO 1300 RF: 0 amlodipine 10 mg Tablet 10 mg PO DAILY RF: 0 lisinopril 40 mg Tablet 40 mg PO DAILY RF: 0 chlorthalidone 25 mg tablet 25 mg PO DAILY RF: 0 levofloxacin 750 mg tablet 750 mg PO DAILY Qty: 10 RF: 0 (DME) pen needle, diabetic [Pen Needle] 31 gauge x 5/16 needle See Rx Instructions .ROUTE .MEDSUPPLY Qty: 60 RF: 0 Lantus Solostar U-100 Insulin 10 units SUBCUT BID RF: 0 Novolog PenFill U-100 Insulin 5 units SUBCUT TID RF: 0 Referrals: Toño Ovalles MD [Primary Care Provider] -
== END 2020-05-10 23:25 | disposition home or self-care (01) ==
PROVIDERS: Emergency Provider Emergency Medicine; PCP Family Medicine
DX: E11.649 Type 2 diabetes mellitus with hypoglycemia without coma (principal); I10 Essential (primary) hypertension; Z79.84 Long term (current) use of oral hypoglycemic drugs
CPT/HCPCS: 36415; 71045; 80053; 82009; 82962; 83605; 84145; 85025; 87040; 93005; 96361; 96374; 99284; J2765

== ENCOUNTER 2020-05-25 13:52 | Emergency (ER) | payer OTHER, SELFPAY ==
[2020-05-25 13:55] VITALS: BP 185/108; PULSE 89; RESP 15; TEMP 37.2; O2SAT 98; BMI 36.9
[2020-05-25 14:34] LABS: Add Manual Diff / Slide Review NO; Basophils Absolute Auto 100 /uL (0-100); Basophils Percent Auto 0.6 % (0-2); Eosinophils Absolute Auto 200 /uL (0-450); Eosinophils Percent Auto 2.1 % (2-4); Hematocrit 39.4 % (41-53); Hemoglobin 13.5 g/dL (13.5-17.5); Lymphocytes Absolute Auto 1700 /uL (1100-4500); Lymphocytes Percent Auto 16.5 % (25-40); Mean Corpuscular HGB Conc 34.2 % (30-36); Mean Corpuscular Hemoglobin 28.9 PG (26-34); Mean Corpuscular Volume 84.4 fL (80-100); Monocytes Absolute Auto 700 /uL (0-900); Monocytes Percent Auto 7.1 % (3-14); Neutrophils Absolute Auto 7400 /uL (1500-7000); Neutrophils Percent Auto 73.7 % (50-75); Platelet Count 207 X10^3/uL (150-400); Red Blood Cell Count 4.67 X10^6/uL (4.5-5.9); Red Cell Distribution Width 13.1 % (11.6-14.8)
[2020-05-25 14:38] LABS: INR 1.2 (0.9-1.3); Prothrombin Time 13.3 SECONDS (10.1-12.7)
[2020-05-25 14:40] LABS: PTT Partial Thromboplastin Tim 33 SECONDS (26.4-36.2)
[2020-05-25 14:45] LABS: Alanine Aminotransferase 24 IU/L (<50); Albumin 3.9 g/dL (3.5-5.0); Albumin Globulin Ratio 0.9 (1.0-2.8); Alkaline Phosphatase 58 U/L (38-126); Aspartate Aminotransferase 25 IU/L (17-59); Bilirubin Total 0.6 mg/dL (0.2-1.3); Blood Urea Nitrogen 15 mg/dL (9-20); Carbon Dioxide 27 mmol/L (22-32); Chloride 98 mmol/L (98-107); Estimated Glomerular Filt Rate > 60.0 mL/min (>60); Globulin 4.2 g/dL (1.7-4.1); Glucose 333 mg/dL (70-100); HEMOLYSIS < 15 (0-50); Lipase 355 U/L (23-300); Sodium 132 mmol/L (137-145); Total Protein 8.1 g/dL (6.3-8.2)
--- NOTE | 2020-05-25 15:13 | ED_ITS ---
HPI - Abdominal Pain General Chief Complaint: Abdominal Pain Stated Complaint: left side back and side pain, started Sunday jose Time Seen by Provider: 05/25/20 15:12 Source: patient Mode of arrival: Ambulatory Limitations: no limitations History of Present Illness HPI narrative: This is a 49-year-old male who comes to the emergency department with complaint of left sided pain that started Sunday evening. This was 3-4 days prior. Patient states pain has been sort of intermittent and waxing and waning. He denies any fevers or chills. He denies any chest pain or shortness of breath. Denies any nausea or vomiting. He does describe some mild fatigue. He states he has been having normal bowel movements daily without any hematochezia or melena. He denies any dysuria, urgency, he has noted little bit of increased urine output and suspects this is secondary to his blood sugars being elevated. Patient denies any hematuria. He does not any pain radiating down his lower extremity. He states not really in his back but more on the side and that it does not feel particularly anterior either. Pressing on the area does make it feel worse. Patient does take medication for diabetes including metformin and antihypertensives. He denies any dyslipidemia, prior coronary artery disease or other medical issues. Patient states his only prior surgery was for his 5th digit on his left foot. Patient defers any pain medications here in the department. He denies any allergies to medications. Related Data Home Medications Medication Instructions Recorded Confirmed amlodipine 10 mg PO DAILY 03/14/18 09/30/19 carvedilol 25 mg PO 1300 03/14/18 09/30/19 lisinopril 40 mg PO DAILY 03/14/18 09/30/19 metformin 850 mg PO BID 03/14/18 09/30/19 chlorthalidone 25 mg PO DAILY 03/15/18 09/30/19 Lantus Solostar U-100 Insulin 10 units SUBCUT BID 09/30/19 09/30/19 Novolog PenFill U-100 Insulin 5 units SUBCUT TID 09/30/19 09/30/19 Previous Rx's Medication Instructions Recorded pen needle, diabetic [Pen Needle] #60 each 09/08/19 levofloxacin 750 mg PO DAILY #10 tab 02/03/20 ciprofloxacin HCl 500 mg PO BID #20 tab 05/25/20 ondansetron HCl [Zofran] 4 mg PO Q6H PRN #10 tab 05/25/20 Allergies Allergy/AdvReac Type Severity Reaction Status Date / Time No Known Drug Allergies Allergy Verified 05/25/20 14:01 Review of Systems Review of Systems ROS Unobtainable: All systems reviewed & are unremarkable except as noted in HPI and below Patient History Medical History (Updated 05/25/20 @ 16:13 by Bhavna Gregory DO) Congestive heart failure Diabetes mellitus Hypertension Ulcer of left lower leg Ulcer of right leg Surgical History History of foot surgery Family History Father Myocardial infarction Mother Diabetes mellitus Brother Diabetes mellitus Social History household members: spouse and children Smoking Status: Current some day smoker alcohol intake: never Smoking Status: Current some day smoker alcohol intake frequency: holidays/special occasions only Substance Use Type: marijuana Exam Narrative Exam Narrative: GENERAL: Alert and oriented x three, well-nourished male in mild distress. HEENT: Head normocephalic, atraumatic, EOMI, pupils reactive, face symmetric, moist mucous membranes NECK: Supple, full range of motion CARDIOVASCULAR: Regular rate and rhythm without murmurs, rubs or gallops. RESPIRATORY: Breath sounds equal bilaterally, no wheezes rales or rhonchi. ABDOMEN: Soft, positive for left lower quadrant tenderness more noticeable on the left side of his abdomen. But not appreciated in his left flank. Normoactive bowel sounds all 4 quadrants. No guarding or rebound, rigidity, no mass : No CVA tenderness bilaterally. EXTREMITIES: Normal range of motion, no clubbing or edema. Neurovascularly intact NEUROLOGICAL: Cranial nerves II through XII grossly intact. Moving all extremities. Normal gait. SKIN: Warm, dry, no petechiae, no rashes or lesions. Initial Vital Signs Initial Vital Signs: Vital Signs Temperature 98.9 F 05/25/20 13:55 Pulse Rate 89 05/25/20 13:55 Respiratory Rate 15 05/25/20 13:55 Blood Pressure 185/108 H 05/25/20 13:55 Pulse Oximetry 98 05/25/20 13:55 Course Orders Ordered: ED Orders 05/25/20 14:07 EKG-12 Lead Stat 05/25/20 14:22 Complete Blood Count AUTO DIFF Stat Comprehensive Metabolic Panel Stat Lipase Stat Partial Thromboplastin Time Stat Prothrombin Time INR Stat 05/25/20 15:22 CT abdomen pelvis w con Stat 05/25/20 15:35 Urine Culture Stat Urine Microscopic Stat Discontinued Medications Ciprofloxacin (Ciprofloxacin 500 Mg Tablet) 500 mg PO NOW ONE Stop: 05/25/20 16:14 Last Admin: 05/25/20 16:25 Dose: 500 mg Documented by: CARRIE Sodium Chloride (Normal Saline 0.9%) 1,000 mls @ 1,000 mls/hr IV BOLUS ONE Stop: 05/25/20 16:21 Last Infusion: 05/25/20 16:39 Dose: 0 mls/hr Documented by: Admin: 05/25/20 15:43 Dose: 1,000 mls/hr Documented by: ALYSSA Vital Signs Vital signs: Vital Signs - 8 hr 05/25/20 13:55 05/25/20 15:42 05/25/20 16:00 Temperature 98.9 F Pulse Rate 89 86 85 Respiratory Rate 15 Blood Pressure 185/108 H 199/115 H Pulse Oximetry 98 97 96 MDM - Abdominal Pain Lab Data Attestation: I reviewed the patient's lab results. Result diagrams: 05/25/20 14:22 05/25/20 14:22 Labs: Lab Results 05/25/20 05/25/20 05/25/20 Range/Units 14:22 14:22 14:22 WBC 10.0 (4.5-11.0) X10^3/uL RBC 4.67 (4.5-5.9) X10^6/uL Hgb 13.5 (13.5-17.5) g/dL Hct 39.4 L (41-53) % MCV 84.4 (80-100) fL MCH 28.9 (26-34) PG MCHC 34.2 (30-36) % RDW 13.1 (11.6-14.8) % Plt Count 207 (150-400) X10^3/uL Neut % (Auto) 73.7 (50-75) % Lymph % (Auto) 16.5 L (25-40) % Bailey % (Auto) 7.1 (3-14) % Eos % (Auto) 2.1 (2-4) % Baso % (Auto) 0.6 (0-2) % Neut # (Auto) 7400 H (6598-8560) /uL Lymph # (Auto) 1700 (0936-0241) /uL Bailey # (Auto) 700 (0-900) /uL Eos # (Auto) 200 (0-450) /uL Baso # (Auto) 100 (0-100) /uL PT 13.3 H (10.1-12.7) SECONDS INR 1.2 (0.9-1.3) APTT 33 (26.4-36.2) SECONDS Sodium 132 L (137-145) mmol/L Potassium 4.0 (3.4-5.1) mmol/L Chloride 98 (98-107) mmol/L Carbon Dioxide 27 (22-32) mmol/L BUN 15 (9-20) mg/dL Creatinine 0.75 (0.66-1.25) mg/dL Estimated GFR > 60.0 (>60) mL/min BUN/Creatinine Ratio 20.0 (6-22) Glucose 333 H (70-100) mg/dL Calcium 9.0 (8.4-10.2) mg/dL Total Bilirubin 0.6 (0.2-1.3) mg/dL AST 25 (17-59) IU/L ALT 24 (<50) IU/L Alkaline Phosphatase 58 (38-126) U/L Total Protein 8.1 (6.3-8.2) g/dL Albumin 3.9 (3.5-5.0) g/dL Globulin 4.2 H (1.7-4.1) g/dL Albumin/Globulin Ratio 0.9 L (1.0-2.8) Lipase 355 H (23-300) U/L Urine RBC (0-5/HPF) Urine WBC (0-5/HPF) Ur Squamous Epith Cells (0-5/HPF) Ur Transition Epith Cell (0-5/HPF) Urine Bacteria (None) Urine Mucus (Negative) Ur Culture Indicated? 05/25/20 Range/Units 15:35 WBC (4.5-11.0) X10^3/uL RBC (4.5-5.9) X10^6/uL Hgb (13.5-17.5) g/dL Hct (41-53) % MCV (80-100) fL MCH (26-34) PG MCHC (30-36) % RDW (11.6-14.8) % Plt Count (150-400) X10^3/uL Neut % (Auto) (50-75) % Lymph % (Auto) (25-40) % Bailey % (Auto) (3-14) % Eos % (Auto) (2-4) % Baso % (Auto) (0-2) % Neut # (Auto) (4441-9454) /uL Lymph # (Auto) (2943-1374) /uL Bailey # (Auto) (0-900) /uL Eos # (Auto) (0-450) /uL Baso # (Auto) (0-100) /uL PT (10.1-12.7) SECONDS INR (0.9-1.3) APTT (26.4-36.2) SECONDS Sodium (137-145) mmol/L Potassium (3.4-5.1) mmol/L Chloride (98-107) mmol/L Carbon Dioxide (22-32) mmol/L BUN (9-20) mg/dL Creatinine (0.66-1.25) mg/dL Estimated GFR (>60) mL/min BUN/Creatinine Ratio (6-22) Glucose (70-100) mg/dL Calcium (8.4-10.2) mg/dL Total Bilirubin (0.2-1.3) mg/dL AST (17-59) IU/L ALT (<50) IU/L Alkaline Phosphatase (38-126) U/L Total Protein (6.3-8.2) g/dL Albumin (3.5-5.0) g/dL Globulin (1.7-4.1) g/dL Albumin/Globulin Ratio (1.0-2.8) Lipase (23-300) U/L Urine RBC 10-30/hpf H (0-5/HPF) Urine WBC 10-30/hpf H (0-5/HPF) Ur Squamous Epith Cells 0-1 /hpf (0-5/HPF) Ur Transition Epith Cell 1-5/hpf (0-5/HPF) Urine Bacteria Occasional (0-1) (None) Urine Mucus 2+ H (Negative) Ur Culture Indicated? Specimen cultured Point of care testing: Urine Dip Bedside Urine Glucose 500 mg/dl Bedside Urine Bilirubin - Negative Bedside Urine Ketone - Negative Urine Specific [place] 1.025 Bedside Urine Occult Blood +++ Bedside Urine pH 6.0 Bedside Urine Protein ++ 100 Bedside Urine Urobilinogen - Negative Bedside Urine Nitrite - Negative Bedside Urine Leukocytes - Negative Esterase Imaging Data CT scan - abdomen/pelvis: Radiologist's Impression: [address] [id number] Scan ReportSigned Patient: Curtis Mari R#: [id number]: 1970Acct:[id number]/Sex: 49 / MDate of Service: 05/25/20Loc: EDAccession Number: [id number] Procedure: CT abdomen pelvis w con Ordering Provider: Bhavna Gregory D.O. PROCEDURE: CT ABDOMEN PELVIS W CON INDICATIONS: LLQ/flank pain, ? diveriticulitis TECHNIQUE: After the administration of intravenous contrast, 5 mm thick sections acquired from the diaphragm to the symphysis. 5 mm coronal and sagittal reformats were acquired. For radiation dose reduction, the following was used: automated exposure control, a djustment of mA and/or kV according to patient size. COMPARISON: [facility], CT, CT ABDOMEN PELVIS W CON, 09/06/2019, 10:33. FINDINGS: Image quality: Excellent. ABDOMEN: Lung bases: Lung bases are clear. He. art size is normal. Solid organs: Liver is normal in size and enhancement. Gallbladder appears normal. Biliary system is non dilated. Pancreas enhances normally. Spleen is normal in size and enhancement. No adrenal nodules. The right kidney demonstrates normal size and enhancement, without hydronephrosis. The left kidney shows edema within the parenchyma as indicated by subtle reduction of cortical medullary differentiation. It also demonstrates a moderate hydronephrosis and prominence of the urothelium within the central renal pelvis, a pattern that can be associated with urinary tract infection. Edema along the perinephric soft tissues on the left is present, moderate in severity, and this pattern tracks inferiorly with the left ureter which is not particularly distended. The left ureter can be seen entering the bladder lumen, without calculus within, and no central bladder calculus free in the bladder lumen is present. The edema pattern is centered on the left urinary tract and the fascial planes leading into the pelvis Peritoneum and bowel: Bowel loops demonstrate normal wall thickness and caliber. No free fluid or air. Nodes and vessels: No retroperitoneal or mesenteric adenopathy by size criteria. Aorta and inferior vena cava are normal in size. Miscellaneous: No ventral hernias. PELVIS: Genitourinary: Bladder wall thickness is normal. Miscellaneous: No inguinal hernias or adenopathy. Bones: No suspicious bony lesions. No vertebral body compression fractures. IMPRESSION: Asymmetric inflammation involving the left urinary tract associated with moderate hydronephrosis at the left kidney, and mild loss of the cortical medullary differentiation at the renal parenchyma on the left. A urinary calculus is not found but the appearance can be produced by recent passage of a calculus, and also by urinary tract infection. Please correlate clinically. The passage of a calculus from the bladder may be asymptomatic. Please correlate for prior left-sided flank pain. No urinary tract mass or extrinsic mass is suspected as cause of this set of findings. However, please correlate for complete resolution over time. Dictated by: Miles Arroyo M.D. on 05/25/2020 at 15:51 Approved by: Miles Arroyo M.D. on 05/25/2020 at 16:09 [facility] Narrative Medical decision making narrative: This is a 49-year-old male who comes emergency department with complaint of several days of left-sided abdominal pain described more on the sides and the back or flank. It has been somewhat intermediate but is worsened with palpation. Patient has been afebrile. He has had some fatigue but denies any other GI or urinary symptoms. He is hypertensive but states he has not taken his antihypertensives today. Patient's sodium is 132, his glucose is 333 but no other major changes to electrolytes with no anion gap and normal bicarb. Patient's lipase is elevated at 355 but patient is nontender without any epigastric abdominal pain. Patient's imaging shows changes consistent with possible UTI or pyelonephritis. Patient still has had discomfort so my suspicion for kidney stone is less likely. Patient does have hematuria, urine was sent for culture. Patient was started on ciprofloxacin, he was given a prescription for Zofran as he has felt somewhat nauseated intermittently. He denies feeling nauseated now defers any m edication but did not take his blood pressure medications this morning because he felt nauseated and has been quite hypertensive. Defers taking his medications here and would prefer to take them at home although he is quite hypertensive and we discussed he needs to take them once he gets home. Discharge Plan Departure Patient Disposition: Home Clinical Impression: Pyelonephritis Instructions: DI for Kidney Infection Activity Restrictions/Additional Instructions: Follow-up with your physician in the next 3-5 days if you have not had significant improvement in your symptoms. Take antibiotics until completely gone. Take 1 tablet every 12 hours. Take nausea medicine as needed. You may take 1 tablet every 6 hours as needed. If you take this 20 minutes prior to your other medications can help prevent any nausea or vomiting if needed. Please return for fevers greater than 100.4 F, new or worsening abdominal or flank persistent nausea or vomiting lightheadedness or passing out, worsening sugars or sugars that are out of control, black or bloody stools, inability to urinate or other new or concerning symptoms. Prescriptions: New ciprofloxacin HCl 500 mg tablet 500 mg PO BID Qty: 20 RF: 0 ondansetron HCl [Zofran] 4 mg tablet 4 mg PO Q6H PRN (Reason: nausea and vomiting) Qty: 10 RF: 0 No Action metformin 500 mg Tablet 850 mg PO BID RF: 0 carvedilol 25 mg Tablet 25 mg PO 1300 RF: 0 amlodipine 10 mg Tablet 10 mg PO DAILY RF: 0 lisinopril 40 mg Tablet 40 mg PO DAILY RF: 0 chlorthalidone 25 mg tablet 25 mg PO DAILY RF: 0 levofloxacin 750 mg tablet 750 mg PO DAILY Qty: 10 RF: 0 (DME) pen needle, diabetic [Pen Needle] 31 gauge x 5/16 needle See Rx Instructions .ROUTE .MEDSUPPLY Qty: 60 RF: 0 Lantus Solostar U-100 Insulin 10 units SUBCUT BID RF: 0 Novolog PenFill U-100 Insulin 5 units SUBCUT TID RF: 0 Referrals: Toño Ovalles MD [Primary Care Provider] -
--- NOTE | 2020-05-25 15:22 | DI.CT.S_ITS ---
PROCEDURE: CT ABDOMEN PELVIS W CON INDICATIONS: LLQ/flank pain, ? diveriticulitis TECHNIQUE: After the administration of intravenous contrast, 5 mm thick sections acquired from the diaphragm to the symphysis. 5 mm coronal and sagittal reformats were acquired. For radiation dose reduction, the following was used: automated exposure control, adjustment of mA and/or kV according to patient size. COMPARISON: [facility], CT, CT ABDOMEN PELVIS W CON, 09/06/2019, 10:33. FINDINGS: Image quality: Excellent. ABDOMEN: Lung bases: Lung bases are clear. He. art size is normal. Solid organs: Liver is normal in size and enhancement. Gallbladder appears normal. Biliary system is non dilated. Pancreas enhances normally. Spleen is normal in size and enhancement. No adrenal nodules. The right kidney demonstrates normal size and enhancement, without hydronephrosis. The left kidney shows edema within the parenchyma as indicated by subtle reduction of cortical medullary differentiation. It also demonstrates a moderate hydronephrosis and prominence of the urothelium within the central renal pelvis, a pattern that can be associated with urinary tract infection. Edema along the perinephric soft tissues on the left is present, moderate in severity, and this pattern tracks inferiorly with the left ureter which is not particularly distended. The left ureter can be seen entering the bladder lumen, without calculus within, and no central bladder calculus free in the bladder lumen is present. The edema pattern is centered on the left urinary tract and the fascial planes leading into the pelvis Peritoneum and bowel: Bowel loops demonstrate normal wall thickness and caliber. No free fluid or air. Nodes and vessels: No retroperitoneal or mesenteric adenopathy by size criteria. Aorta and inferior vena cava are normal in size. Miscellaneous: No ventral hernias. PELVIS: Genitourinary: Bladder wall thickness is normal. Miscellaneous: No inguinal hernias or adenopathy. Bones: No suspicious bony lesions. No vertebral body compression fractures. IMPRESSION: Asymmetric inflammation involving the left urinary tract associated with moderate hydronephrosis at the left kidney, and mild loss of the cortical medullary differentiation at the renal parenchyma on the left. A urinary calculus is not found but the appearance can be produced by recent passage of a calculus, and also by urinary tract infection. Please correlate clinically. The passage of a calculus from the bladder may be asymptomatic. Please correlate for prior left-sided flank pain. No urinary tract mass or extrinsic mass is suspected as cause of this set of findings. However, please correlate for complete resolution over time. Dictated by: Miles Arroyo M.D. on 05/25/2020 at 15:51 Approved by: Miles Arroyo M.D. on 05/25/2020 at 16:09
[2020-05-25 15:42] VITALS: BP 199/115; PULSE 86; O2SAT 97
[2020-05-25] MEDS: SODIUM CHLORIDE 0.9% 1,000 ML 1000 ML IV (15:43)
[2020-05-25 16:00] VITALS: PULSE 85; O2SAT 96
[2020-05-25 16:15] LABS: Bacteria Urine Occasional (0-1); Culture Indicated Urine Specimen Cultured; Mucus Urine 2+ (Negative); RBC Urine 10-30/HPF (0-5/HPF); Squamous Epithelial Cell Urine 0-1 /HPF (0-5/HPF); Transitional Epi Cells Urine 1-5/HPF (0-5/HPF); WBC Urine 10-30/HPF (0-5/HPF)
[2020-05-25] MEDS: CIPROFLOXACIN 500 MG TABLET PO (16:25)
== END 2020-05-25 16:40 | disposition home or self-care (01) ==
PROVIDERS: Emergency Medicine; Emergency Provider Emergency Medicine; PCP Family Medicine
DX: N12 Tubulo-interstitial nephritis, not specified as acute or chronic (principal)
CPT/HCPCS: 36415; 74177; 80053; 81003; 81015; 83690; 85025; 85610; 85730; 87086; 93005; 93010; 96360; 99284; Q9967

== ENCOUNTER 2020-06-22 21:25 | Emergency (ER) | payer OTHER, SELFPAY ==
[2020-06-22 21:29] VITALS: BP 191/109; PULSE 82; RESP 15; TEMP 36.8; O2SAT 99; BMI 36.9
--- NOTE | 2020-06-22 22:53 | PC.NURSE ---
Pt concerned about cellulitis. Has wound to right lateral lower calf, for about the past year. Currently doing at home dressing changes/compression wraps. Wound has small amount of yellow drainage on bandage, redness around wound. Also has another wound on pad of right great toe, for two months from a broken blood blister. Pt has had wound care through wound clinic in the past. Would like another referral.
[2020-06-22 22:56] VITALS: PULSE 72; O2SAT 96
[2020-06-22 23:00] VITALS: PULSE 73; O2SAT 95
[2020-06-22 23:30] VITALS: PULSE 81; O2SAT 98
[2020-06-23 00:11] LABS: Add Manual Diff / Slide Review NO; Basophils Absolute Auto 100 /uL (0-100); Basophils Percent Auto 0.7 % (0-2); Eosinophils Absolute Auto 300 /uL (0-450); Eosinophils Percent Auto 3.6 % (2-4); Hematocrit 40.2 % (41-53); Hemoglobin 13.6 g/dL (13.5-17.5); Lymphocytes Absolute Auto 2600 /uL (1100-4500); Lymphocytes Percent Auto 30.8 % (25-40); Mean Corpuscular HGB Conc 33.9 % (30-36); Mean Corpuscular Hemoglobin 28.6 PG (26-34); Mean Corpuscular Volume 84.5 fL (80-100); Monocytes Absolute Auto 700 /uL (0-900); Neutrophils Absolute Auto 4800 /uL (1500-7000); Neutrophils Percent Auto 56.9 % (50-75); Platelet Count 229 X10^3/uL (150-400); Red Blood Cell Count 4.76 X10^6/uL (4.5-5.9); Red Cell Distribution Width 13.7 % (11.6-14.8); White Blood Cell Count 8.5 X10^3/uL (4.5-11.0)
[2020-06-23 00:13] LABS: Alanine Aminotransferase 26 IU/L (<50); Alkaline Phosphatase 55 U/L (38-126); Aspartate Aminotransferase 30 IU/L (17-59); BUN Creatinine Ratio 25.7 (6-22); Bilirubin Total 0.4 mg/dL (0.2-1.3); Blood Urea Nitrogen 18 mg/dL (9-20); Calcium 9.3 mg/dL (8.4-10.2); Carbon Dioxide 29 mmol/L (22-32); Chloride 100 mmol/L (98-107); Estimated Glomerular Filt Rate > 60.0 mL/min (>60); Globulin 4.1 g/dL (1.7-4.1); Glucose 253 mg/dL (70-100); HEMOLYSIS 18 (0-50); Potassium 3.9 mmol/L (3.4-5.1); Sodium 137 mmol/L (137-145); Total Protein 8.1 g/dL (6.3-8.2)
--- NOTE | 2020-06-23 01:07 | ED_ITS ---
HPI - Extremity Problem General Chief complaint: Extremity Problem,Nontraumatic Stated complaint: Open wound infection Time Seen by Provider: 06/23/20 00:25 Source: patient Mode of arrival: Ambulatory Limitations: no limitations History of Present Illness HPI Narrative: 49-year-old gentleman with uncontrolled diabetes, hypertension, coronary artery disease, chronic lower extremity edema who presents with increasing pain and redness to eye a wound on the lateral aspect of his right calf. He does not report fevers, cough, chills. He notes that his diabetes is poorly controlled his sugars are typically quite high. He has had no abdominal pain, vomiting or diarrhea. No chest pain, orthopnea or palpitations. Notes that his chronic lower extremity edema is stable and unchanged. It has been a while since he has seen his primary care physician and he states that he has not been seen in wound clinic or by Podiatry. Related Data Home Medications Medication Instructions Recorded Confirmed amlodipine 10 mg PO DAILY 03/14/18 09/30/19 carvedilol 25 mg PO 1300 03/14/18 09/30/19 lisinopril 40 mg PO DAILY 03/14/18 09/30/19 metformin 850 mg PO BID 03/14/18 09/30/19 chlorthalidone 25 mg PO DAILY 03/15/18 09/30/19 Lantus Solostar U-100 Insulin 10 units SUBCUT BID 09/30/19 09/30/19 Novolog PenFill U-100 Insulin 5 units SUBCUT TID 09/30/19 09/30/19 Previous Rx's Medication Instructions Recorded pen needle, diabetic [Pen Needle] #60 each 09/08/19 levofloxacin 750 mg PO DAILY #10 tab 02/03/20 ciprofloxacin HCl 500 mg PO BID #20 tab 05/25/20 ondansetron HCl [Zofran] 4 mg PO Q6H PRN #10 tab 05/25/20 sulfamethoxazole-trimethoprim 1 tab PO BID #20 tab 06/23/20 [Bactrim DS] Allergies Allergy/AdvReac Type Severity Reaction Status Date / Time No Known Drug Allergies Allergy Verified 05/25/20 14:01 Review of Systems Review of Systems Narrative: Remainder of complete review of systems is otherwise unremarkable except for that included in the HPI. Patient History Medical History Congestive heart failure Diabetes mellitus Hypertension Ulcer of left lower leg Ulcer of right leg Surgical History History of foot surgery Family History Father Myocardial infarction Mother Diabetes mellitus Brother Diabetes mellitus Social History household members: spouse and children Smoking Status: Current some day smoker alcohol intake: never Smoking Status: Current some day smoker alcohol intake frequency: holidays/special occasions only Substance Use Type: marijuana Exam Narrative Exam Narrative: General: Chronically ill-appearing but in no acute distress. Able to give a complete and coherent history. Well-nourished well-developed HEENT: Moist mucous membranes, normal sclera with reactive pupils, Neck: No JVD, supple Respiratory: Lungs are clear to auscultation, no wheezing no rales no rhonchi. Full and symmetrical air movement Cardiac: Regular rate and rhythm no murmurs no bruits Abdomen: Soft, nontender, good bowel tones, no flank pain Skin: Chronic venous stasis changes of lower extremities. Has a venous stasis ulcer on the lateral aspect of the right calf is approximately 2 x 3 cm with some minor purulence debris and increasing erythema to the edges with increasing tenderness around the wound. No significant smell is appreciated. Neurologic: Grossly neurologically intact with no obvious asymmetries or abnormalities Extremities: Overall poor perfusion with significant calluses over the did forefoot with skin breakdown and significant toenail dystrophy of both feet Psych: Cooperative, appropriate insight and affect Initial Vital Signs Initial Vital Signs: Vital Signs Temperature 98.2 F 06/22/20 21:29 Pulse Rate 82 06/22/20 21:29 Respiratory Rate 15 06/22/20 21:29 Blood Pressure 191/109 H 06/22/20 21:29 Pulse Oximetry 99 06/22/20 21:29 Course Orders Ordered: ED Orders 06/22/20 22:40 CMP [Comprehensive Metabolic Panel] Stat Complete Blood Count AUTO DIFF Stat Discontinued Medications Trimethoprim/Sulfamethoxazole (Trimeth/Sulfa 160/800 (Ds) Tablet) 1 tab PO NOW ONE Stop: 06/23/20 01:18 Last Admin: 06/23/20 01:37 Dose: 1 tab Documented by: MARIA INES Vital Signs Vital signs: Vital Signs - 8 hr 06/22/20 22:56 06/22/20 23:00 06/22/20 23:30 Temperature Pulse Rate 72 73 81 Respiratory Rate Blood Pressure Pulse Oximetry 96 95 98 06/23/20 01:55 Temperature 98.5 F Pulse Rate 80 Respiratory Rate 18 Blood Pressure 175/107 H Pulse Oximetry 100 MDM - Extremity (Nontraumatic) Medical Records Attestation: I reviewed the patient's medical records. Lab Data Attestation: I reviewed the patient's lab results. Result diagrams: 06/22/20 22:40 06/22/20 22:40 Labs: Lab Results 06/22/20 06/22/20 Range/Units 22:40 22:40 WBC 8.5 (4.5-11.0) X10^3/uL RBC 4.76 (4.5-5.9) X10^6/uL Hgb 13.6 (13.5-17.5) g/dL Hct 40.2 L (41-53) % MCV 84.5 (80-100) fL MCH 28.6 (26-34) PG MCHC 33.9 (30-36) % RDW 13.7 (11.6-14.8) % Plt Count 229 (150-400) X10^3/uL Neut % (Auto) 56.9 (50-75) % Lymph % (Auto) 30.8 (25-40) % Mcdonald % (Auto) 8.0 (3-14) % Eos % (Auto) 3.6 (2-4) % Baso % (Auto) 0.7 (0-2) % Neut # (Auto) 4800 (7926-9831) /uL Lymph # (Auto) 2600 (7631-8422) /uL Mcdonald # (Auto) 700 (0-900) /uL Eos # (Auto) 300 (0-450) /uL Baso # (Auto) 100 (0-100) /uL Sodium 137 (137-145) mmol/L Potassium 3.9 (3.4-5.1) mmol/L Chloride 100 (98-107) mmol/L Carbon Dioxide 29 (22-32) mmol/L BUN 18 (9-20) mg/dL Creatinine 0.70 (0.66-1.25) mg/dL Estimated GFR > 60.0 (>60) mL/min BUN/Creatinine Ratio 25.7 H (6-22) Glucose 253 H (70-100) mg/dL Calcium 9.3 (8.4-10.2) mg/dL Total Bilirubin 0.4 (0.2-1.3) mg/dL AST 30 (17-59) IU/L ALT 26 (<50) IU/L Alkaline Phosphatase 55 (38-126) U/L Total Protein 8.1 (6.3-8.2) g/dL Albumin 4.0 (3.5-5.0) g/dL Globulin 4.1 (1.7-4.1) g/dL Albumin/Globulin Ratio 1.0 (1.0-2.8) MDM Narrative Medical decision making narrative: 49-year-old gentleman with poorly controlled diabetes chronic venous stasis changes and chronic lower extremity ulcers with developing cellulitis in the right lateral calf ulcer. No evidence of sepsis or abscess. No suggestion of DVT.. We placed on Bactrim b.i.d. for the next 7 days. Wound care referral is generated and strongly recommended that he also follow-up with Podiatry as he is at significant risk for further breakdown and complication significant calluses and nail dystrophy of both feet. Discharge Plan Departure Patient Disposition: Home Clinical Impression: Venous stasis ulcer Qualifiers: Venous stasis ulcer site: other part of lower leg Varicose vein presence: without varicose veins Laterality: right Non-pressure ulcer stage: with fat layer exposed Qualified Code(s): I87.2 - Venous insufficiency (chronic) (peripheral) Cellulitis Qualifiers: Site of cellulitis: extremity Site of cellulitis of extremity: lower extremity Laterality: right Qualified Code(s): L03.115 - Cellulitis of right lower limb Instructions: DI for Cellulitis -- Adult Activity Restrictions/Additional Instructions: Thank you for coming in today You have a chronic venous stasis ulcer on your right calf that is now developing a cellulitis, skin infection. I am going to prescribe you Bactrim, and antibiotic take twice a day for the next 7 days. Treating the infection is only part of the problem. This wound is likely going to need chronic dressing and will heal faster if you are seen at the wound care clinic. I have initiated a referral and you should be receiving a phone call for a follow-up appointment You also need to see a screw machine set up operator. You need to have the calluses on your feet trimmed and your nails cared for. These are all significant risks with your diabetes. Please call [facility] an asked to see their screw machine set up operator, the phone number is [phone] You do need to follow-up with your primary care physician to make sure that your diabetes is as controlled as possible Please feel free to return to the emergency department if you are getting worse I hope you feel better Prescriptions: New sulfamethoxazole-trimethoprim [Bactrim DS] 800-160 mg tablet 1 tab PO BID Qty: 20 RF: 0 No Action metformin 500 mg Tablet 850 mg PO BID RF: 0 carvedilol 25 mg Tablet 25 mg PO 1300 RF: 0 amlodipine 10 mg Tablet 10 mg PO DAILY RF: 0 lisinopril 40 mg Tablet 40 mg PO DAILY RF: 0 chlorthalidone 25 mg tablet 25 mg PO DAILY RF: 0 levofloxacin 750 mg tablet 750 mg PO DAILY Qty: 10 RF: 0 ciprofloxacin HCl 500 mg tablet 500 mg PO BID Qty: 20 RF: 0 ondansetron HCl [Zofran] 4 mg tablet 4 mg PO Q6H PRN (Reason: nausea and vomiting) Qty: 10 RF: 0 (DME) pen needle, diabetic [Pen Needle] 31 gauge x 5/16 needle See Rx Instructions .ROUTE .MEDSUPPLY Qty: 60 RF: 0 Lantus Solostar U-100 Insulin 10 units SUBCUT BID RF: 0 Novolog PenFill U-100 Insulin 5 units SUBCUT TID RF: 0 Referrals: Toño Ovalles MD [Primary Care Provider] -
[2020-06-23] MEDS: TRIMETH/SULFA 160/800 (DS) TABLET 1 TAB PO (01:37)
[2020-06-23 01:55] VITALS: BP 175/107; PULSE 80; RESP 18; TEMP 36.9; O2SAT 100
== END 2020-06-23 01:57 | disposition home or self-care (01) ==
PROVIDERS: Emergency Provider Emergency Medicine; PCP Family Medicine
DX: I87.2 Venous insufficiency (chronic) (peripheral) (principal); L03.115 Cellulitis of right lower limb
CPT/HCPCS: 36415; 80053; 85025; 99283

== ENCOUNTER → 2020-07-07 10:24 | Outpatient (CLI) | payer OTHER, SELFPAY | LOC: WC 10:25 | PROVIDERS: PCP Family Medicine; Referring Provider Emergency Medicine; Visit Provider Family Medicine | DX: E11.621 Type 2 diabetes mellitus with foot ulcer (principal); L97.521 Non-pressure chronic ulcer of other part of left foot limited to breakdown of skin; L97.511 Non-pressure chronic ulcer of other part of right foot limited to breakdown of skin; L97.215 Non-pressure chronic ulcer of right calf with muscle involvement without evidence of necrosis; L08.9 Local infection of the skin and subcutaneous tissue, unspecified; E11.40 Type 2 diabetes mellitus with diabetic neuropathy, unspecified; F17.200 Nicotine dependence, unspecified, uncomplicated | CPT/HCPCS: 11042; 87070; 87075; 87077; 87186; 87205; 99213; 99214 ==

== ENCOUNTER → 2020-07-14 10:32 | Outpatient (CLI) | payer OTHER, SELFPAY | PROVIDERS: PCP Family Medicine; Referring Provider Family Medicine; Visit Provider Family Medicine | DX: E11.621 Type 2 diabetes mellitus with foot ulcer (principal); L97.521 Non-pressure chronic ulcer of other part of left foot limited to breakdown of skin; L97.511 Non-pressure chronic ulcer of other part of right foot limited to breakdown of skin; I87.2 Venous insufficiency (chronic) (peripheral); L97.215 Non-pressure chronic ulcer of right calf with muscle involvement without evidence of necrosis; L97.312 Non-pressure chronic ulcer of right ankle with fat layer exposed; B95.7 Other staphylococcus as the cause of diseases classified elsewhere | CPT/HCPCS: 11042; 99214 ==

== ENCOUNTER → 2020-07-22 10:44 | Outpatient (CLI) | payer OTHER, SELFPAY | PROVIDERS: PCP Family Medicine; Referring Provider Family Medicine; Visit Provider Family Medicine | DX: E11.621 Type 2 diabetes mellitus with foot ulcer (principal); L97.815 Non-pressure chronic ulcer of other part of right lower leg with muscle involvement without evidence of necrosis; L97.521 Non-pressure chronic ulcer of other part of left foot limited to breakdown of skin; L97.511 Non-pressure chronic ulcer of other part of right foot limited to breakdown of skin; L97.312 Non-pressure chronic ulcer of right ankle with fat layer exposed; I87.2 Venous insufficiency (chronic) (peripheral); E11.40 Type 2 diabetes mellitus with diabetic neuropathy, unspecified; F17.200 Nicotine dependence, unspecified, uncomplicated | CPT/HCPCS: 11042 ==

== ENCOUNTER → 2020-07-27 13:30 | Outpatient (CLI) | payer OTHER, SELFPAY | PROVIDERS: PCP Family Medicine; Referring Provider Family Medicine; Visit Provider Family Medicine | DX: I87.2 Venous insufficiency (chronic) (peripheral) (principal); L97.812 Non-pressure chronic ulcer of other part of right lower leg with fat layer exposed; L97.511 Non-pressure chronic ulcer of other part of right foot limited to breakdown of skin; L97.521 Non-pressure chronic ulcer of other part of left foot limited to breakdown of skin; L97.312 Non-pressure chronic ulcer of right ankle with fat layer exposed | CPT/HCPCS: 99213 ==

== ENCOUNTER → 2020-08-05 11:31 | Outpatient (CLI) | payer OTHER, SELFPAY | LOC: WC 11:33 | PROVIDERS: PCP Family Medicine; Referring Provider Family Medicine; Visit Provider Family Medicine | DX: E11.621 Type 2 diabetes mellitus with foot ulcer (principal); L97.521 Non-pressure chronic ulcer of other part of left foot limited to breakdown of skin; L97.511 Non-pressure chronic ulcer of other part of right foot limited to breakdown of skin; I87.2 Venous insufficiency (chronic) (peripheral); L97.312 Non-pressure chronic ulcer of right ankle with fat layer exposed; L97.212 Non-pressure chronic ulcer of right calf with fat layer exposed; E11.40 Type 2 diabetes mellitus with diabetic neuropathy, unspecified; Z91.19 Patient's noncompliance with other medical treatment and regimen | CPT/HCPCS: 11042; 99213 ==

== ENCOUNTER → 2020-08-12 08:57 | Outpatient (CLI) | payer OTHER, SELFPAY | PROVIDERS: PCP Family Medicine; Referring Provider Family Medicine; Visit Provider Family Medicine | DX: E11.621 Type 2 diabetes mellitus with foot ulcer (principal); I87.2 Venous insufficiency (chronic) (peripheral); L97.521 Non-pressure chronic ulcer of other part of left foot limited to breakdown of skin; L97.511 Non-pressure chronic ulcer of other part of right foot limited to breakdown of skin; L97.312 Non-pressure chronic ulcer of right ankle with fat layer exposed; L97.212 Non-pressure chronic ulcer of right calf with fat layer exposed; L08.9 Local infection of the skin and subcutaneous tissue, unspecified; E11.40 Type 2 diabetes mellitus with diabetic neuropathy, unspecified | CPT/HCPCS: 11042; 87070; 87075; 87077; 87147; 87186; 87205; 99213 ==

== ENCOUNTER → 2020-08-20 15:01 | Outpatient (CLI) | payer OTHER, SELFPAY | PROVIDERS: PCP Family Medicine; Referring Provider Family Medicine; Visit Provider Family Medicine | DX: I87.2 Venous insufficiency (chronic) (peripheral) (principal); L97.812 Non-pressure chronic ulcer of other part of right lower leg with fat layer exposed; L97.811 Non-pressure chronic ulcer of other part of right lower leg limited to breakdown of skin | CPT/HCPCS: 29580 ==

== ENCOUNTER → 2020-08-30 08:44 | Outpatient (CLI) | payer OTHER, SELFPAY | PROVIDERS: PCP Family Medicine; Referring Provider Family Medicine; Visit Provider Family Medicine | DX: E11.621 Type 2 diabetes mellitus with foot ulcer (principal); I87.2 Venous insufficiency (chronic) (peripheral); L97.811 Non-pressure chronic ulcer of other part of right lower leg limited to breakdown of skin; L97.511 Non-pressure chronic ulcer of other part of right foot limited to breakdown of skin; L97.311 Non-pressure chronic ulcer of right ankle limited to breakdown of skin; L08.9 Local infection of the skin and subcutaneous tissue, unspecified; R60.0 Localized edema; E11.40 Type 2 diabetes mellitus with diabetic neuropathy, unspecified; B95.61 Methicillin susceptible Staphylococcus aureus infection as the cause of diseases classified elsewhere; F17.200 Nicotine dependence, unspecified, uncomplicated | CPT/HCPCS: 11042; 87070; 87075; 87077; 87147; 87186; 87205; 97597; 99214 ==

== ENCOUNTER → 2020-09-06 10:09 | Outpatient (CLI) | payer OTHER, SELFPAY | PROVIDERS: PCP Family Medicine; Referring Provider Family Medicine; Visit Provider Family Medicine | DX: E11.621 Type 2 diabetes mellitus with foot ulcer (principal); L97.511 Non-pressure chronic ulcer of other part of right foot limited to breakdown of skin; L97.521 Non-pressure chronic ulcer of other part of left foot limited to breakdown of skin; I87.2 Venous insufficiency (chronic) (peripheral); L97.311 Non-pressure chronic ulcer of right ankle limited to breakdown of skin; L97.211 Non-pressure chronic ulcer of right calf limited to breakdown of skin; L08.9 Local infection of the skin and subcutaneous tissue, unspecified; B95.61 Methicillin susceptible Staphylococcus aureus infection as the cause of diseases classified elsewhere; B95.7 Other staphylococcus as the cause of diseases classified elsewhere; Z91.19 Patient's noncompliance with other medical treatment and regimen; F17.200 Nicotine dependence, unspecified, uncomplicated | CPT/HCPCS: 11042; 99214 ==

== ENCOUNTER 2020-09-16 18:32 | Emergency (ER) | payer OTHER, SELFPAY ==
[2020-09-16] VITALS (10 sets, daily range): BP systolic 138–187; BP diastolic 79–101; PULSE 73–94; RESP 15–19; TEMP 37.1; O2SAT 95–99; BMI 37.6
--- NOTE | 2020-09-16 18:59 | DI.RAD.S_ITS ---
PROCEDURE: XR CHEST 1V INDICATIONS: fatigue TECHNIQUE: One view of the chest was acquired. COMPARISON: [facility], CT, CT ABDOMEN PELVIS W CON, 05/25/2020, 15:31. [facility], CR, XR CHEST 1V, 05/10/2020, 21:05. [facility], CR, XR CHEST 1V, 03/24/2018, 21:28. FINDINGS: Surgical changes and devices: None. Lungs and pleura: Lungs are clear. No pleural effusions or pneumothorax. Mediastinum: Mediastinal contours appear normal. Heart size is within normal limits. Bones and chest wall: No suspicious bony lesions. Overlying soft tissues appear unremarkable. IMPRESSION: No acute cardiopulmonary abnormality. Dictated by: Puma Browning M.D. on 09/16/2020 at 19:37 Approved by: Puma Browning M.D. on 09/16/2020 at 19:38
[2020-09-16 19:11] LABS: COVID19 -Nasal RAPID Negative (Negative)
[2020-09-16 19:30] LABS: PCO2 VBG 36.4 mmHg (45-50); PO2 VBG 80 mmHg (35-45); pH VBG 7.51 (7.33-7.43)
[2020-09-16 19:30] LABS: Add Manual Diff / Slide Review NO; Basophils Absolute Auto 0 /uL (0-100); Basophils Percent Auto 0.5 % (0-2); Eosinophils Absolute Auto 0 /uL (0-450); Eosinophils Percent Auto 0.3 % (2-4); Hematocrit 43.8 % (41-53); Hemoglobin 15.3 g/dL (13.5-17.5); Lymphocytes Absolute Auto 2100 /uL (1100-4500); Lymphocytes Percent Auto 27.8 % (25-40); Mean Corpuscular Hemoglobin 29.8 PG (26-34); Mean Corpuscular Volume 85.1 fL (80-100); Monocytes Absolute Auto 600 /uL (0-900); Monocytes Percent Auto 7.9 % (3-14); Neutrophils Absolute Auto 4800 /uL (1500-7000); Neutrophils Percent Auto 63.5 % (50-75); Platelet Count 249 X10^3/uL (150-400); Red Blood Cell Count 5.14 X10^6/uL (4.5-5.9); Red Cell Distribution Width 13.5 % (11.6-14.8); White Blood Cell Count 7.6 X10^3/uL (4.5-11.0)
[2020-09-16 19:31] LABS: HCO3 VBG 29 mmol/L (23-28); Oxygen Saturation VBG 97 % (70-75); Total CO2 VBG 30 mmol/L (24-29)
[2020-09-16 19:49] LABS: Appearance Urine UA CLEAR; Bilirubin Urine UA NEGATIVE (NEGATIVE); Color Urine UA YELLOW; Glucose Urine UA 1+ g/dL (Negative); Ketones Urine UA 1+ (NEGATIVE); Leukocyte Esterase Urine UA NEGATIVE (NEGATIVE); Nitrite Urine UA NEGATIVE (Negative); Occult Blood Urine UA TRACE-LYSED (Negative); Protein Urine UA 2+ (Negative); Specific Gravity Urine UA 1.025 (1.000-1.035); Urobilinogen Urine UA 0.2 E.U./dL (0.2); pH Urine UA 5.5 (4.5-8.0)
[2020-09-16] MEDS: ONDANSETRON 4 MG/2 ML INJ IV (19:50)
[2020-09-16] MEDS: SODIUM CHLORIDE 0.9% 1,000 ML 1000 ML IV (19:50)
[2020-09-16 19:52] LABS: HEMOLYSIS < 15 (0-50)
[2020-09-16 19:54] LABS: Alanine Aminotransferase 44 IU/L (<50); Albumin 4.1 g/dL (3.5-5.0); Albumin Globulin Ratio 1.1 (1.0-2.8); Alkaline Phosphatase 54 U/L (38-126); Aspartate Aminotransferase 41 IU/L (17-59); BUN Creatinine Ratio 26.3 (6-22); Blood Urea Nitrogen 21 mg/dL (9-20); Calcium 9.3 mg/dL (8.4-10.2); Carbon Dioxide 27 mmol/L (22-32); Chloride 101 mmol/L (98-107); Estimated Glomerular Filt Rate > 60.0 mL/min (>60); Globulin 3.6 g/dL (1.7-4.1); Glucose 241 mg/dL (70-100); Potassium 3.4 mmol/L (3.4-5.1); Sodium 137 mmol/L (137-145); Total Protein 7.7 g/dL (6.3-8.2)
[2020-09-16 20:03] LABS: RBC Urine 0-1/HPF (0-5/HPF); WBC Urine 0-1/HPF (0-5/HPF)
[2020-09-16 20:04] LABS: Bacteria Urine Occasional (0-1); Culture Indicated Urine Cult Not Indicated; Hyaline Casts Urine 1-5/LPF; Mucus Urine 1+ (Negative)
--- NOTE | 2020-09-16 20:15 | ED_ITS ---
HPI - General Adult General Chief complaint: Diabetic Problem Stated complaint: Super High Sugar Level, Nauseated and Dehydrated Time Seen by Provider: 09/16/20 18:56 Source: patient Mode of arrival: Ambulatory History of Present Illness HPI narrative: 50-year-old former smoker with history of diabetes, hypertension presents with blood sugars that have been elevated the past few days up to the 3 and 400s. He has been nauseated had some vomiting and feels generally weak. He denies any fever or chills. He states he has been taking his medications like he is supposed to, however he has been eating a significant amount of sugar. He denies any chest pain or shortness of breath. He denies abdominal pain. Related Data Home Medications Medication Instructions Recorded Confirmed amlodipine 10 mg tablet 10 mg PO DAILY 03/14/18 09/30/19 carvedilol 25 mg tablet 25 mg PO 1300 03/14/18 09/30/19 lisinopril 40 mg tablet 40 mg PO DAILY 03/14/18 09/30/19 metformin 500 mg tablet 850 mg PO BID 03/14/18 09/30/19 chlorthalidone 25 mg tablet 25 mg PO DAILY 03/15/18 09/30/19 Lantus Solostar U-100 Insulin 10 units SUBCUT BID 09/30/19 09/30/19 Novolog PenFill U-100 Insulin 5 units SUBCUT TID 09/30/19 09/30/19 Previous Rx's Medication Instructions Recorded pen needle, diabetic 31 gauge x #60 each 09/08/1906/20 (Pen Needle) levofloxacin 750 mg tablet 750 mg PO DAILY #10 tab 02/03/20 ciprofloxacin HCl 500 mg tablet 500 mg PO BID #20 tab 05/25/20 ondansetron HCl 4 mg tablet 4 mg PO Q6H PRN #10 tab 05/25/20 (Zofran) sulfamethoxazole 800 1 tab PO BID #20 tab 06/23/20 mg-trimethoprim 160 mg tablet (Bactrim DS) Allergies Allergy/AdvReac Type Severity Reaction Status Date / Time No Known Drug Allergies Allergy Verified 05/25/20 14:01 Review of Systems Review of Systems Narrative: GENERAL: See HPI HEENT: Denies sinus pain, ear pain, sore throat, difficulty swallowing, di zziness. RESPIRATORY: Denies dyspnea, cough, wheezing, hemoptysis, sputum. CARDIOVASCULAR: Denies chest pain, palpitations, orthopnea, edema, GASTROINTESTINAL: D see HPI : Denies dysuria, frequency, incontinence, hematuria, urinary retention. MUSCULOSKELETAL: denies weakness, joint pain, or bony pain SKIN: Denies rash, skin lesions, or other NEUROLOGIC: Denies weakness, headache, numbness, change in speech, confusion, seizures, incoordination. PSYCHIATRIC: No concerning psychosocial issues. 12 point review of systems is negative except for those stated above Patient History Medical History (Updated 09/16/20 @ 20:41 by Sandeep Pascal DO) Congestive heart failure Diabetes mellitus Hypertension Ulcer of left lower leg Ulcer of right leg Surgical History History of foot surgery Family History Father Myocardial infarction Mother Diabetes mellitus Brother Diabetes mellitus Social History household members: spouse and children Smoking Status: Former smoker alcohol intake: never Smoking Status: Former smoker alcohol intake frequency: holidays/special occasions only Substance Use Type: marijuana Exam Narrative Exam Narrative: GENERAL: [50] year old patient appears stated age. Well-d eveloped patient, in mild distress. HEAD: Atraumatic. Normocephalic. EYES: Pupils equal round and reactive. Extraocular motions intact. No scleral icterus. No injection or drainage. ENT: Moist mucous membranes Nose without bleeding, purulent drainage. Throat without erythema, tonsillar hypertrophy or exudate. Airway patent. NECK: Trachea midline. Non tender CARDIOVASCULAR: Regular rate and rhythm without murmurs, gallops, or rubs. RESPIRATORY: Clear to auscultation. Breath sounds equal bilaterally. No wheezes, rales, or rhonchi. GASTROINTESTINAL: Abdomen soft, non-tender, nondistended. EXTREMITIES: No edema or joint tenderness. BACK: Nontender without deformity or crepitance. No flank tenderness. NEURO: AOx3. SKIN: No rash or erythema of visible areas Initial Vital Signs Initial Vital Signs: Vital Signs Temperature 98.8 F 09/16/20 18:49 Pulse Rate 91 H 09/16/20 18:49 Respiratory Rate 19 09/16/20 18:49 Blood Pressure 175/101 H 09/16/20 18:49 Pulse Oximetry 99 09/16/20 18:49 Course Orders Ordered: Discontinued Medications Sodium Chloride (Normal Saline 0.9%) 1,000 mls @ 1,000 mls/hr IV BOLUS ONE Stop: 09/16/20 20:45 Last Infusion: 09/16/20 21:01 Dose: 0 mls/hr Documented by: Admin: 09/16/20 19:50 Dose: 1,000 mls/hr Documented by: RAPHAEL Ondansetron HCl (Ondansetron 4 Mg/2 Ml Inj) 4 mg IV NOW ONE Stop: 09/16/20 19:47 Last Admin: 09/16/20 19:50 Dose: 4 mg Documented by: RAPHAEL Ondansetron HCl (Ondansetron 4 Mg Odt Prepack) 1 bottle MISC SEEINSTR ONE Stop: 09/16/20 20:42 Last Admin: 09/16/20 20:59 Dose: 1 bottle Documented by: RAPHAEL Reevaluation(s) Reevaluation #1: Resting comfortably, feeling much better Vital Signs Vital signs: Vital Signs - 8 hr 09/16/20 18:49 Temperature 98.8 F Pulse Rate 91 H Respiratory Rate 19 Blood Pressure 175/101 H Pulse Oximetry 99 Medical Decision Making Lab Data Result diagrams: 09/16/20 19:20 09/16/20 19:20 Labs: Lab Results 09/16/20 09/16/20 09/16/20 Range/Units 18:45 19:20 19:20 WBC 7.6 (4.5-11.0) X10^3/uL RBC 5.14 (4.5-5.9) X10^6/uL Hgb 15.3 (13.5-17.5) g/dL Hct 43.8 (41-53) % MCV 85.1 (80-100) fL MCH 29.8 (26-34) PG MCHC 35.0 (30-36) % RDW 13.5 (11.6-14.8) % Plt Count 249 (150-400) X10^3/uL Neut % (Auto) 63.5 (50-75) % Lymph % (Auto) 27.8 (25-40) % [place] % (Auto) 7.9 (3-14) % Eos % (Auto) 0.3 L (2-4) % Baso % (Auto) 0.5 (0-2) % Neut # (Auto) 4800 (7297-0907) /uL Lymph # (Auto) 2100 (1409-0764) /uL [place] # (Auto) 600 (0-900) /uL Eos # (Auto) 0 (0-450) /uL Baso # (Auto) 0 (0-100) /uL VBG pH (7.33-7.43) VBG pCO2 (45-50) mmHg VBG pO2 (35-45) mmHg VBG HCO3 (23-28) mmol/L VBG Total CO2 (24-29) mmol/L VBG O2 Saturation (70-75) % VBG Base Excess (0-4) mmol/L Sodium 137 (137-145) mmol/L Potassium 3.4 (3.4-5.1) mmol/L Chloride 101 (98-107) mmol/L Carbon Dioxide 27 (22-32) mmol/L BUN 21 H (9-20) mg/dL Creatinine 0.80 (0.66-1.25) mg/dL Estimated GFR > 60.0 (>60) mL/min BUN/Creatinine Ratio 26.3 H (6-22) Glucose 241 H (70-100) mg/dL Calcium 9.3 (8.4-10.2) mg/dL Total Bilirubin 1.0 (0.2-1.3) mg/dL AST 41 (17-59) IU/L ALT 44 (<50) IU/L Alkaline Phosphatase 54 (38-126) U/L Total Protein 7.7 (6.3-8.2) g/dL Albumin 4.1 (3.5-5.0) g/dL Globulin 3.6 (1.7-4.1) g/dL Albumin/Globulin Ratio 1.1 (1.0-2.8) Urine Color Urine Appearance Urine pH (4.5-8.0) Ur Specific Advance (1.000-1.035) Urine Protein (Negative) Urine Glucose (UA) (Negative) g/dL Urine Ketones (NEGATIVE) Urine Occult Blood (Negative) Urine Nitrate (Negative) Urine Bilirubin (NEGATIVE) Urine Urobilinogen (0.2) E.U./dL Ur Leukocyte Esterase (NEGATIVE) Urine RBC (0-5/HPF) Urine WBC (0-5/HPF) Urine Bacteria (None) Hyaline Casts (None) Urine Mucus (Negative) Ur Culture Indicated? Ketones 0.70 H (<0.27) mmol/L SARS-CoV-2 (PCR) Negative (Negative) 09/16/20 09/16/20 Range/Units 19:20 19:26 WBC (4.5-11.0) X10^3/uL RBC (4.5-5.9) X10^6/uL Hgb (13.5-17.5) g/dL Hct (41-53) % MCV (80-100) fL MCH (26-34) PG MCHC (30-36) % RDW (11.6-14.8) % Plt Count (150-400) X10^3/uL Neut % (Auto) (50-75) % Lymph % (Auto) (25-40) % [place] % (Auto) (3-14) % Eos % (Auto) (2-4) % Baso % (Auto) (0-2) % Neut # (Auto) (8390-1172) /uL Lymph # (Auto) (0001-0663) /uL [place]lette # (Auto) (0-900) /uL Eos # (Auto) (0-450) /uL Baso # (Auto) (0-100) /uL VBG pH 7.51 H (7.33-7.43) VBG pCO2 36.4 L (45-50) mmHg VBG pO2 80 H (35-45) mmHg VBG HCO3 29 H (23-28) mmol/L VBG Total CO2 30 H (24-29) mmol/L VBG O2 Saturation 97 H (70-75) % VBG Base Excess 6.0 H (0-4) mmol/L Sodium (137-145) mmol/L Potassium (3.4-5.1) mmol/L Chloride (98-107) mmol/L Carbon Dioxide (22-32) mmol/L BUN (9-20) mg/dL Creatinine (0.66-1.25) mg/dL Estimated GFR (>60) mL/min BUN/Creatinine Ratio (6-22) Glucose (70-100) mg/dL Calcium (8.4-10.2) mg/dL Total Bilirubin (0.2-1.3) mg/dL AST (17-59) IU/L ALT (<50) IU/L Alkaline Phosphatase (38-126) U/L Total Protein (6.3-8.2) g/dL Albumin (3.5-5.0) g/dL Globulin (1.7-4.1) g/dL Albumin/Globulin Ratio (1.0-2.8) Urine Color Yellow Urine Appearance Clear Urine pH 5.5 (4.5-8.0) Ur Specific Advance 1.025 (1.000-1.035) Urine Protein 2+ H (Negative) Urine Glucose (UA) 1+ H (Negative) g/dL Urine Ketones 1+ H (NEGATIVE) Urine Occult Blood Trace-lysed (Negative) Urine Nitrate Negative (Negative) Urine Bilirubin Negative (NEGATIVE) Urine Urobilinogen 0.2 (0.2) E.U./dL Ur Leukocyte Esterase Negative (NEGATIVE) Urine RBC 0-1/hpf D (0-5/HPF) Urine WBC 0-1/hpf (0-5/HPF) Urine Bacteria Occasional (0-1) (None) Hyaline Casts 1-5/lpf (None) Urine Mucus 1+ H (Negative) Ur Culture Indicated? Cult not indicated Ketones (<0.27) mmol/L SARS-CoV-2 (PCR) (Negative) Point of Care Testing Glucose POC 202 Point of care testing: Point of Care Testing Glucose POC 202 Imaging Data Chest x-ray: Radiologist's Impression: [address] [id number] ReportSigned Patient: Curtis Mari R#: [id number]: 1970Acct:[id number]/Sex: 50 / MDate of Service: 09/16/20Loc: EDAccession Number: [id number] Procedure: XR chest 1V Ordering Provider: Jose Elias Locke P.A-C PROCEDURE: XR CHEST 1V INDICATIONS: fatigue TECHNIQUE: One view of the chest was acquired. COMPARISON: [facility], CT, CT ABDOMEN PELVIS W CON, 05/25/2020, 15:31. [facility], CR, XR CHEST 1V, 05/10/2020, 21:05. [facility], CR, XR CHEST 1V, 03/24/2018, 21:28. FINDINGS: Surgical changes and devices: None. Lungs and pleura: Lungs are clear. No pleural effusions or pneumothorax. Mediastinum: Mediastinal contours appear normal. Heart size is within normal limits. Bones and chest wall: No suspicious bony lesions. Overlying soft tissues appear unremarkable. IMPRESSION: No acute cardiopulmonary abnormality. Dictated by: Puma Browning M.D. on 09/16/2020 at 19:37 Approved by: Puma Browning M.D. on 09/16/2020 at 19:38 MDM Narrative Medical decision making narrative: Patient's blood glucose 202, feeling much better after IV fluids. ABG demonstrates no acidosis. Patient tolerating oral hydration. No evidence of DKA or h hyperosmolar hyperglycemia Return precautions given, questions answered to his apparent satisfaction Discharge Plan Departure Patient Disposition: Home Clinical Impression: Acute hyperglycemia Nausea and vomiting Qualifiers: Vomiting type: unspecified Vomiting Intractability: non-intractable Qualified Code(s): R11.2 - Nausea with vomiting, unspecified Instructions: DI for Diabetes Type 2, Nausea and Vomiting-Adult Activity Restrictions/Additional Instructions: *You have been diagnosed with [vomiting and hyperglycemia] *What to do: *Please continue to take your regular medications as directed. [ ] New medication prescriptions sent to your pharmacy: [ ] [ ] New medication written as a paper prescription [ x] Prepack given *Please follow up with your primary care provider in 2-3 days, call for an appointment. Let them know you were seen in the Emergency Department and that we ask that you be seen in follow up. We will electronically transmit a record of today's note if your PCP is in our system *If you do not have a primary care provider please contact the [facility] Resource line at [phone]. They will ask some questions about your medical history and help get you set up with a doctor in the community. *Return to Emergency Department if you should have any new, worsening or concerning symptoms, such as [fever greater than 101 F, shaking chills, wor sening pain, persistent vomiting or other bothersome symptoms] Prescriptions: No Action metformin 500 mg Tablet 850 mg PO BID RF: 0 carvedilol 25 mg Tablet 25 mg PO 1300 RF: 0 amlodipine 10 mg Tablet 10 mg PO DAILY RF: 0 lisinopril 40 mg Tablet 40 mg PO DAILY RF: 0 chlorthalidone 25 mg tablet 25 mg PO DAILY RF: 0 levofloxacin 750 mg tablet 750 mg PO DAILY Qty: 10 RF: 0 ciprofloxacin HCl 500 mg tablet 500 mg PO BID Qty: 20 RF: 0 ondansetron HCl [Zofran] 4 mg tablet 4 mg PO Q6H PRN (Reason: nausea and vomiting) Qty: 10 RF: 0 sulfamethoxazole-trimethoprim [Bactrim DS] 800-160 mg tablet 1 tab PO BID Qty: 20 RF: 0 (DME) pen needle, diabetic [Pen Needle] 31 gauge x 5/16 needle See Rx Instructions .ROUTE .MEDSUPPLY Qty: 60 RF: 0 Lantus Solostar U-100 Insulin 10 units SUBCUT BID RF: 0 Novolog PenFill U-100 Insulin 5 units SUBCUT TID RF: 0 Referrals: Toño Ovalles MD [Primary Care Provider] -
[2020-09-16] MEDS: ONDANSETRON 4 MG ODT PREPACK 1 BOTTLE MISC (20:59)
== END 2020-09-16 21:10 | disposition home or self-care (01) ==
PROVIDERS: Physician Assistant; Emergency Provider Emergency Medicine; PCP Family Medicine
DX: E11.65 Type 2 diabetes mellitus with hyperglycemia (principal); R11.2 Nausea with vomiting, unspecified; Z20.822 Contact with and (suspected) exposure to COVID-19
CPT/HCPCS: 71045; 80053; 81001; 82009; 82805; 82962; 85025; 87635; 93005; 96361; 96374; 99284; C9803; J2405

== ENCOUNTER 2020-09-18 09:30 | Emergency (ER) | payer OTHER, SELFPAY ==
[2020-09-18 10:08] VITALS: BP 207/124; PULSE 80; RESP 16; TEMP 36.6; O2SAT 99; BMI 36.1
--- NOTE | 2020-09-18 11:01 | ED.GENADULT ---
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 He presents today for the 2nd time in 3 days with elevated blood sugars in the 3-400 range, he notes that he typically runs in the 200 range and tries to keep it below to 150, and nausea and vomiting. He describes no fever, cough, chills, chest pain, palpitations, dyspnea, lower extremity edema (he does have compression dressings in place for his chronic lower extremity edema) constipation or diarrhea. Related Data Home Medications Medication Instructions Recorded Confirmed amlodipine 10 mg tablet 10 mg PO DAILY 03/14/18 09/18/20 carvedilol 25 mg tablet 25 mg PO 1300 03/14/18 09/18/20 lisinopril 40 mg tablet 40 mg PO DAILY 03/14/18 09/18/20 metformin 500 mg tablet 850 mg PO BID 03/14/18 09/30/19 chlorthalidone 25 mg tablet 25 mg PO DAILY 03/15/18 09/30/19 Lantus Solostar U-100 Insulin 10 units SUBCUT BID 09/30/19 09/30/19 Novolog PenFill U-100 Insulin 5 units SUBCUT TID 09/30/19 09/30/19 Previous Rx's Medication Instructions Recorded pen needle, diabetic 31 gauge x #60 each 09/08/1906/20 (Pen Needle) levofloxacin 750 mg tablet 750 mg PO DAILY #10 tab 02/03/20 ciprofloxacin HCl 500 mg tablet 500 mg PO BID #20 tab 05/25/20 ondansetron HCl 4 mg tablet 4 mg PO Q6H PRN #10 tab 05/25/20 (Zofran) sulfamethoxazole 800 1 tab PO BID #20 tab 06/23/20 mg-trimethoprim 160 mg tablet (Bactrim DS) metoclopramide HCl 10 mg tablet 10 mg PO Q6H PRN #20 tab 09/18/20 (Reglan) Allergies Allergy/AdvReac Type Severity Reaction Status Date / Time No Known Drug Allergies Allergy Verified 09/18/20 10:12 Review of Systems Review of Systems Narrative: Remainder of complete review of systems is otherwise unremarkable except for that included in the HPI. Patient History Medical History Congestive heart failure Diabetes mellitus Hypertension Ulcer of left lower leg Ulcer of right leg Surgical History History of foot surgery Family History Father Myocardial infarction Mother Diabetes mellitus Brother Diabetes mellitus Social History household members: spouse and children Smoking Status: Former smoker alcohol intake: never Smoking Status: Former smoker tobacco type: cigarettes alcohol intake frequency: holidays/special occasions only Substance Use Type: marijuana Exam Narrative Exam Narrative: General: Healthy appearing, in no acute distress. Able to give a complete and coherent history. Well-nourished well-developed HEENT: Moist mucous membranes, normal sclera with reactive pupils, Neck: No JVD, supple Respiratory: Lungs are clear to auscultation, no wheezing no rales no rhonchi. Full and symmetrical air movement Cardiac: Regular rate and rhythm no murmurs no bruits Abdomen: Soft, nontender, good bowel tones, no flank pain Skin: Warm and dry, no rashes Neurologic: Grossly neurologically intact with no obvious asymmetries or abnormalities Extremities: Both legs wrapped with wound care dressings. The left is wrapped purely for venous stasis control. The right has 2 small ulcers and is unwrapped both of the ulcers do appear to be healing nicely with no evidence of cellulitis. Psych: Cooperative, appropriate insight and affect Initial Vital Signs Initial Vital Signs: Vital Signs Temperature 97.8 F 09/18/20 10:08 Pulse Rate 80 09/18/20 10:08 Respiratory Rate 16 09/18/20 10:08 Blood Pressure 207/124 H 09/18/20 10:08 Pulse Oximetry 99 09/18/20 10:08 Course Orders Ordered: ED Orders 09/18/20 11:30 CBC Auto Diff [Complete Blood Count AUTO DIFF] Stat Comprehensive Metabolic Panel Stat Lipase Stat Troponin I Stat 09/18/20 11:37 EKG-12 Lead Stat Discontinued Medications Carvedilol (Carvedilol 12.5 Mg Tablet) 25 mg PO NOW ONE Stop: 09/18/20 13:03 Last Admin: 09/18/20 13:13 Dose: 25 mg Documented by: Sodium Chloride (Normal Saline 0.9%) 1,000 mls @ 1,000 mls/hr IV BOLUS ONE Stop: 09/18/20 12:35 Last Admin: 09/18/20 11:41 Dose: 1,000 mls/hr Documented by: LENOREYLOR Lisinopril (Lisinopril 20 Mg Tablet) 20 mg PO NOW ONE Stop: 09/18/20 13:03 Last Admin: 09/18/20 13:10 Dose: Not Given Documented by: Ondansetron HCl (Ondansetron 4 Mg/2 Ml Inj) 4 mg IV NOW ONE Stop: 09/18/20 11:37 Last Admin: 09/18/20 11:41 Dose: 4 mg Documented by: BERTHA Vital Signs Vital signs: Vital Signs - 8 hr 09/18/20 10:08 09/18/20 11:32 09/18/20 12:00 Temperature 97.8 F Pulse Rate 80 77 78 Respiratory Rate 16 16 Blood Pressure 207/124 H 189/110 H 207/118 H Pulse Oximetry 99 99 99 09/18/20 12:30 Temperature Pulse Rate 78 Respiratory Rate 16 Blood Pressure 221/116 H Pulse Oximetry 99 Medical Decision Making Lab Data Result diagrams: 09/18/20 11:30 09/18/20 11:30 Labs: Lab Results 09/18/20 09/18/20 09/18/20 Range/Units 11:30 11:30 11:30 WBC 7.2 (4.5-11.0) X10^3/uL RBC 5.59 (4.5-5.9) X10^6/uL Hgb 16.2 (13.5-17.5) g/dL Hct 47.7 (41-53) % MCV 85.3 (80-100) fL MCH 29.0 (26-34) PG MCHC 34.0 (30-36) % RDW 13.6 (11.6-14.8) % Plt Count 252 (150-400) X10^3/uL Neut % (Auto) 63.6 (50-75) % Lymph % (Auto) 26.5 (25-40) % Placer % (Auto) 8.6 (3-14) % Eos % (Auto) 0.7 L (2-4) % Baso % (Auto) 0.6 (0-2) % Neut # (Auto) 4600 (2070-4212) /uL Lymph # (Auto) 1900 (0722-3782) /uL Placer # (Auto) 600 (0-900) /uL Eos # (Auto) 0 (0-450) /uL Baso # (Auto) 0 (0-100) /uL Sodium 137 (137-145) mmol/L Potassium 3.9 (3.4-5.1) mmol/L Chloride 100 (98-107) mmol/L Carbon Dioxide 28 (22-32) mmol/L BUN 21 H (9-20) mg/dL Creatinine 0.87 (0.66-1.25) mg/dL Estimated GFR > 60.0 (>60) mL/min BUN/Creatinine Ratio 24.1 H (6-22) Glucose 216 H (70-100) mg/dL Calcium 9.5 (8.4-10.2) mg/dL Total Bilirubin 1.3 (0.2-1.3) mg/dL AST 68 H (17-59) IU/L ALT 61 H (<50) IU/L Alkaline Phosphatase 54 (38-126) U/L Troponin I < 0.012 (0.01-0.034) ng/mL Total Protein 8.4 H (6.3-8.2) g/dL Albumin 4.5 (3.5-5.0) g/dL Globulin 3.9 (1.7-4.1) g/dL Albumin/Globulin Ratio 1.2 (1.0-2.8) Lipase 127 (23-300) U/L Point of Care Testing Glucose POC 214 Point of care testing: Point of Care Testing Glucose POC 214 [facility] Narrative Medical decision making narrative: 50-year-old gentleman presents with sugars slightly elevated moderately elevated blood pressure and nausea and vomiting. Nausea and vomiting was easily controlled with saline and a single dose of Zofran. Labs are reassuring. No evidence of DKA, infection, congestive heart failure, acute coronary syndrome. Blood pressure has come down nicely with his usual oral medications. Blood sugar at discharge is below 120. Have suggested that he increase his Lantus from 10 b.i.d. to 15 b.i.d. and try to avoid drinks with sugar in them. Encouraged him to continue all of his usual blood pressure medications as well as his weekly wound care appointments on Sunday and follow up with his primary care physician. Questions are answered and he is safe for home discharge at this time. Discharge Plan Departure Patient Disposition: Home Clinical Impression: Hyperglycemia Diabetes mellitus Qualifiers: Diabetes mellitus type: type 2 Diabetes mellitus press tender long goods insulin use: with press tender long goods use Instructions: DI for Diabetes Type 2 Activity Restrictions/Additional Instructions: Thank you for coming in today I am sorry your blood sugars have been so difficult to control recently Your blood work today is reassuring. I am going to suggest that you continue to focus on avoiding high sugar drinks and food. I am also going to ask you to increase your Lantus insulin from 10 units morning and night to 15 units morning and night. You absolutely need to continue all of your blood pressure medications Please make sure that you do follow-up with wound care on Sunday, your wounds do seem to be healing nicely but you need to stay on top of that I have given you prescription for some Reglan/metoclopramide to help with nausea. This prescription was electronically sent to [facility] Please schedule an appointment with your primary care physician in the near future Good luck with getting all of your meet supply in order! 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:) Prescriptions: New metoclopramide HCl [Reglan] 10 mg tablet 10 mg PO Q6H PRN (Reason: nausea and vomiting) Qty: 20 RF: 0 No Action metformin 500 mg Tablet 850 mg PO BID RF: 0 carvedilol 25 mg Tablet 25 mg PO 1300 RF: 0 amlodipine 10 mg Tablet 10 mg PO DAILY RF: 0 lisinopril 40 mg Tablet 40 mg PO DAILY RF: 0 chlorthalidone 25 mg tablet 25 mg PO DAILY RF: 0 levofloxacin 750 mg tablet 750 mg PO DAILY Qty: 10 RF: 0 ciprofloxacin HCl 500 mg tablet 500 mg PO BID Qty: 20 RF: 0 ondansetron HCl [Zofran] 4 mg tablet 4 mg PO Q6H PRN (Reason: nausea and vomiting) Qty: 10 RF: 0 sulfamethoxazole-trimethoprim [Bactrim DS] 800-160 mg tablet 1 tab PO BID Qty: 20 RF: 0 (DME) pen needle, diabetic [Pen Needle] 31 gauge x 5/16 needle See Rx Instructions .ROUTE .MEDSUPPLY Qty: 60 RF: 0 Lantus Solostar U-100 Insulin 10 units SUBCUT BID RF: 0 Novolog PenFill U-100 Insulin 5 units SUBCUT TID RF: 0 Referrals: Toño Ovalles MD [Primary Care Provider] -
[2020-09-18 11:32] VITALS: BP 189/110; PULSE 77; O2SAT 99
[2020-09-18 11:36] LABS: Add Manual Diff / Slide Review NO; Basophils Absolute Auto 0 /uL (0-100); Basophils Percent Auto 0.6 % (0-2); Eosinophils Absolute Auto 0 /uL (0-450); Eosinophils Percent Auto 0.7 % (2-4); Hematocrit 47.7 % (41-53); Hemoglobin 16.2 g/dL (13.5-17.5); Lymphocytes Absolute Auto 1900 /uL (1100-4500); Lymphocytes Percent Auto 26.5 % (25-40); Mean Corpuscular Volume 85.3 fL (80-100); Monocytes Absolute Auto 600 /uL (0-900); Monocytes Percent Auto 8.6 % (3-14); Neutrophils Absolute Auto 4600 /uL (1500-7000); Neutrophils Percent Auto 63.6 % (50-75); Platelet Count 252 X10^3/uL (150-400); Red Blood Cell Count 5.59 X10^6/uL (4.5-5.9); Red Cell Distribution Width 13.6 % (11.6-14.8); White Blood Cell Count 7.2 X10^3/uL (4.5-11.0)
[2020-09-18] MEDS: ONDANSETRON 4 MG/2 ML INJ IV (11:41)
[2020-09-18] MEDS: SODIUM CHLORIDE 0.9% 1,000 ML 1000 ML IV (11:41)
[2020-09-18 11:48] LABS: Alanine Aminotransferase 61 IU/L (<50); Albumin 4.5 g/dL (3.5-5.0); Albumin Globulin Ratio 1.2 (1.0-2.8); Alkaline Phosphatase 54 U/L (38-126); Aspartate Aminotransferase 68 IU/L (17-59); BUN Creatinine Ratio 24.1 (6-22); Bilirubin Total 1.3 mg/dL (0.2-1.3); Blood Urea Nitrogen 21 mg/dL (9-20); Calcium 9.5 mg/dL (8.4-10.2); Carbon Dioxide 28 mmol/L (22-32); Chloride 100 mmol/L (98-107); Estimated Glomerular Filt Rate > 60.0 mL/min (>60); Globulin 3.9 g/dL (1.7-4.1); Glucose 216 mg/dL (70-100); HEMOLYSIS 27 (0-50); Lipase 127 U/L (23-300); Potassium 3.9 mmol/L (3.4-5.1); Sodium 137 mmol/L (137-145); Total Protein 8.4 g/dL (6.3-8.2)
[2020-09-18 12:00] VITALS: BP 207/118; PULSE 78; RESP 16; O2SAT 99
[2020-09-18 12:27] LABS: Troponin I < 0.012 ng/mL (0.01-0.034)
[2020-09-18 12:30] VITALS: BP 221/116; PULSE 78; RESP 16; O2SAT 99
[2020-09-18 13:00] VITALS: BP 159/92; PULSE 72; RESP 17; O2SAT 97
[2020-09-18] MEDS: carvediloL 12.5 MG TABLET 25 MG PO (13:13)
[2020-09-18 13:20] VITALS: PULSE 79; RESP 14; O2SAT 98
== END 2020-09-18 13:28 | disposition home or self-care (01) ==
PROVIDERS: Emergency Provider Emergency Medicine; PCP Family Medicine
DX: E11.65 Type 2 diabetes mellitus with hyperglycemia (principal); Z79.4 Long term (current) use of insulin; R07.9 Chest pain, unspecified
CPT/HCPCS: 36415; 80053; 82962; 83690; 84484; 85025; 93005; 99284; J2405

== ENCOUNTER → 2020-09-27 09:12 | Outpatient (CLI) | payer OTHER, SELFPAY | PROVIDERS: PCP Family Medicine; Referring Provider Family Medicine; Visit Provider Family Medicine | DX: E11.621 Type 2 diabetes mellitus with foot ulcer (principal); L97.511 Non-pressure chronic ulcer of other part of right foot limited to breakdown of skin; L97.521 Non-pressure chronic ulcer of other part of left foot limited to breakdown of skin; L97.421 Non-pressure chronic ulcer of left heel and midfoot limited to breakdown of skin; I87.2 Venous insufficiency (chronic) (peripheral); L97.811 Non-pressure chronic ulcer of other part of right lower leg limited to breakdown of skin; L97.311 Non-pressure chronic ulcer of right ankle limited to breakdown of skin; L08.9 Local infection of the skin and subcutaneous tissue, unspecified; E11.622 Type 2 diabetes mellitus with other skin ulcer; E11.59 Type 2 diabetes mellitus with other circulatory complications; Z91.19 Patient's noncompliance with other medical treatment and regimen; L84 Corns and callosities | CPT/HCPCS: 11042; 87070; 87075; 87077; 87147; 87186; 87205; 97597; 99214 ==

== ENCOUNTER → 2020-10-04 11:24 | Outpatient (CLI) | payer OTHER, SELFPAY | LOC: WC 11:24 | PROVIDERS: PCP Family Medicine; Referring Provider Family Medicine; Visit Provider Family Medicine | DX: E11.621 Type 2 diabetes mellitus with foot ulcer (principal); L97.511 Non-pressure chronic ulcer of other part of right foot limited to breakdown of skin; L97.521 Non-pressure chronic ulcer of other part of left foot limited to breakdown of skin; L97.421 Non-pressure chronic ulcer of left heel and midfoot limited to breakdown of skin; I87.2 Venous insufficiency (chronic) (peripheral); L97.311 Non-pressure chronic ulcer of right ankle limited to breakdown of skin; L08.9 Local infection of the skin and subcutaneous tissue, unspecified; L84 Corns and callosities; E11.59 Type 2 diabetes mellitus with other circulatory complications; R60.0 Localized edema | CPT/HCPCS: 11042; 99213 ==

== ENCOUNTER → 2020-10-14 09:32 | Outpatient (CLI) | payer OTHER, SELFPAY | LOC: WC 09:32 | PROVIDERS: PCP Family Medicine; Referring Provider Family Medicine; Visit Provider Family Medicine | DX: I87.2 Venous insufficiency (chronic) (peripheral) (principal); L97.811 Non-pressure chronic ulcer of other part of right lower leg limited to breakdown of skin; L97.311 Non-pressure chronic ulcer of right ankle limited to breakdown of skin; E11.621 Type 2 diabetes mellitus with foot ulcer; L97.511 Non-pressure chronic ulcer of other part of right foot limited to breakdown of skin; L97.521 Non-pressure chronic ulcer of other part of left foot limited to breakdown of skin; L97.421 Non-pressure chronic ulcer of left heel and midfoot limited to breakdown of skin; L08.9 Local infection of the skin and subcutaneous tissue, unspecified; L84 Corns and callosities; R60.0 Localized edema; E11.40 Type 2 diabetes mellitus with diabetic neuropathy, unspecified; I11.0 Hypertensive heart disease with heart failure; I50.9 Heart failure, unspecified; Z72.0 Tobacco use; Z91.19 Patient's noncompliance with other medical treatment and regimen; Z79.4 Long term (current) use of insulin | CPT/HCPCS: 11042; 87070; 87075; 87077; 87147; 87186; 87205; 99213 ==

== ENCOUNTER 2020-11-03 22:02 | Emergency (ER) | payer OTHER, SELFPAY ==
[2020-11-03 22:12] VITALS: BP 215/111; PULSE 87; RESP 22; TEMP 36.4; O2SAT 99
--- NOTE | 2020-11-03 22:39 | ED_ITS ---
HPI - Skin/Abscess/Foreign Bdy General Chief complaint: Skin/Abscess/Foreign Body Stated complaint: bilateral leg sores, infection Time Seen by Provider: 11/03/20 22:10 Source: patient Mode of arrival: Ambulatory History of Present Illness HPI narrative: Patient is a 50-year-old male. Is a insulin-dependent diabetic. Also has a history of high blood pressure. Has chronic lower extremity cellulitis and wound infections. Approximately 3 weeks ago was his last visit with wound care. At that time he was started on doxycycline for infection and his legs. He was on it for 10 days. He thinks that the swelling in the redness in the discomfort greatly improved while he was on the antibiotic but did not take the symptoms completely away. He has not been back in to see wound care since then. There has been issues with his insurance. He contacted his primary doctor and is not scheduled to sees primary doctor for 10-14 days. States that the redness and swelling and discomfort in his lower extremities have worsened since he completed the course of the antibiotics. Related Data Home Medications Medication Instructions Recorded Confirmed amlodipine 10 mg tablet 10 mg PO DAILY 03/14/18 09/18/20 carvedilol 25 mg tablet 25 mg PO 1300 03/14/18 09/18/20 lisinopril 40 mg tablet 40 mg PO DAILY 03/14/18 09/18/20 metformin 500 mg tablet 850 mg PO BID 03/14/18 09/30/19 chlorthalidone 25 mg tablet 25 mg PO DAILY 03/15/18 09/30/19 Lantus Solostar U-100 Insulin 10 units SUBCUT BID 09/30/19 09/30/19 Novolog PenFill U-100 Insulin 5 units SUBCUT TID 09/30/19 09/30/19 Previous Rx's Medication Instructions Recorded pen needle, diabetic 31 gauge x #60 each 09/08/1906/20 (Pen Needle) levofloxacin 750 mg tablet 750 mg PO DAILY #10 tab 02/03/20 ciprofloxacin HCl 500 mg tablet 500 mg PO BID #20 tab 05/25/20 ondansetron HCl 4 mg tablet 4 mg PO Q6H PRN #10 tab 05/25/20 (Zofran) sulfamethoxazole 800 1 tab PO BID #20 tab 06/23/20 mg-trimethoprim 160 mg tablet (Bactrim DS) metoclopramide HCl 10 mg tablet 10 mg PO Q6H PRN #20 tab 09/18/20 (Reglan) doxycycline hyclate 100 mg tablet 100 mg PO BID 10 Days #20 tab 11/03/20 Allergies Allergy/AdvReac Type Severity Reaction Status Date / Time No Known Drug Allergies Allergy Verified 09/18/20 10:12 Review of Systems Constitutional Constitutional: Denies fever(s) Cardiovascular Cardiovascular: Denies chest pain and Denies dyspnea Respiratory Respiratory: Denies dyspnea Gastrointestinal Gastrointestinal: Denies abdominal pain Musculoskeletal Musculoskeletal: Reports system reviewed and no additional complaints, except as documented and Reports as per HPI Integumentary/Breasts Skin/Breast: Reports system reviewed and no additional complaints, except as documented Neurologic Neurologic: Reports system reviewed and no additional complaints, except as documented Hematologic/Lymphatic On Anticoagulants: No Patient History Medical History Congestive heart failure Diabetes mellitus Hypertension Ulcer of left lower leg Ulcer of right leg Surgical History History of foot surgery Family History Father Myocardial infarction Mother Diabetes mellitus Brother Diabetes mellitus Social History household members: spouse and children Smoking Status: Former smoker alcohol intake: never Smoking Status: Former smoker tobacco type: cigarettes alcohol intake frequency: holidays/special occasions only Substance Use Type: marijuana Exam Initial Vital Signs Initial Vital Signs: Vital Signs Temperature 97.5 F L 11/03/20 22:12 Pulse Rate 87 11/03/20 22:12 Respiratory Rate 22 11/03/20 22:12 Blood Pressure 215/111 H 11/03/20 22:12 Pulse Oximetry 99 11/03/20 22:12 HENVT Head: normal to inspection and normocephalic Eyes General: appearance normal, both eyes and all related structures Resp Effort & Inspection: normal respiratory effort Cardio Rate: regular rate Skin Other: Patient did show me pictures of his lower extremities. His right lower extremity does have ulcerations on the anterior aspect of his heel and also at the base of his right great toe. There is also redness on his anterior tibia on the right. Extrem Other: Patient does have swelling to bilateral lower extremities however they are wrapped with both Evert bandages and compression stockings. Course Orders Ordered: Discontinued Medications Doxycycline Hyclate (Doxycycline Hyclate 100 Mg Tablet) 100 mg PO NOW ONE Stop: 11/03/20 22:40 Last Admin: 11/03/20 22:45 Dose: 100 mg Documented by: JAUN Vital Signs Vital signs: Vital Signs - 8 hr 11/03/20 22:12 11/03/20 22:50 Temperature 97.5 F L Pulse Rate 87 80 Respiratory Rate 22 20 Blood Pressure 215/111 H 198/100 H Pulse Oximetry 99 99 MDM - Skin/Abscess/Foreign Bdy MDM Narrative Medical decision making narrative: Patient today looks well. Is afebrile. Not tachycardic. Is hypertensive but this is baseline for him. Patient has a longstanding history of cellulitis in issues with his lower extremities. He stated that he has been having issues with his [employer] and cannot get in to see wound care for now. The wound care provider would not provide antibiotics for him. He attempted to contact his primary doctor but cannot get in to see him/her for 10-14 days. He felt like the redness and swelling in his lower extremities was getting worse. Doxycycline has helped him in the past. Both of his legs are wrapped with bandages and also compression stockings to help with the swelling. He showed me pictures of the area is that he took at home. Does appear that he has redness and drainage to the interior aspect of his right foot. Had a discussion with the patient. I will hold on taking the dressings down on his lower extremities as it is a difficult procedure to have done and is also uncomfortable for him. The pictures that were taken were done so yesterday. Based on the pictures will start the patient on antibiotics. He was given a dose here in the ER and will send a prescription for the remainder of the course. Was given return precautions and follow-up instructions. He expressed understanding and agreement. Discharge Plan Departure Patient Disposition: Home Clinical Impression: Cellulitis Instructions: DI for Cellulitis -- Adult Activity Restrictions/Additional Instructions: Continue to take all of your medicines as directed. Keep your scheduled follow- up appointment with your primary doctor at the beginning of next month. Return to the emergency department for any new or worsening symptoms Prescriptions: New doxycycline hyclate 100 mg tablet 100 mg PO BID 10 Days Qty: 20 RF: 0 No Action metformin 500 mg Tablet 850 mg PO BID RF: 0 carvedilol 25 mg Tablet 25 mg PO 1300 RF: 0 amlodipine 10 mg Tablet 10 mg PO DAILY RF: 0 lisinopril 40 mg Tablet 40 mg PO DAILY RF: 0 chlorthalidone 25 mg tablet 25 mg PO DAILY RF: 0 levofloxacin 750 mg tablet 750 mg PO DAILY Qty: 10 RF: 0 ciprofloxacin HCl 500 mg tablet 500 mg PO BID Qty: 20 RF: 0 ondansetron HCl [Zofran] 4 mg tablet 4 mg PO Q6H PRN (Reason: nausea and vomiting) Qty: 10 RF: 0 sulfamethoxazole-trimethoprim [Bactrim DS] 800-160 mg tablet 1 tab PO BID Qty: 20 RF: 0 metoclopramide HCl [Reglan] 10 mg tablet 10 mg PO Q6H PRN (Reason: nausea and vomiting) Qty: 20 RF: 0 (DME) pen needle, diabetic [Pen Needle] 31 gauge x 5/16 needle See Rx Instructions .ROUTE .MEDSUPPLY Qty: 60 RF: 0 Lantus Solostar U-100 Insulin 10 units SUBCUT BID RF: 0 Novolog PenFill U-100 Insulin 5 units SUBCUT TID RF: 0 Referrals: Toño Ovalles MD [Primary Care Provider] -
[2020-11-03] MEDS: DOXYCYCLINE HYCLATE 100 MG TABLET PO (22:45)
[2020-11-03 22:50] VITALS: BP 198/100; PULSE 80; RESP 20; O2SAT 99
--- NOTE | 2020-11-04 01:40 | PC.NURSE ---
His skin exam was deferred to DR Escobedo,he had modesto wraps and compression stockings on
== END 2020-11-03 23:00 | disposition home or self-care (01) ==
PROVIDERS: Emergency Provider Emergency Medicine; PCP Family Medicine
DX: L03.116 Cellulitis of left lower limb (principal); L03.115 Cellulitis of right lower limb
CPT/HCPCS: 99283

== ENCOUNTER 2020-12-22 20:24 | Emergency (ER) | payer SELFPAY ==
[2020-12-22 20:36] VITALS: BP 184/110; PULSE 100; RESP 16; TEMP 36.8; O2SAT 98; BMI 36.2
--- NOTE | 2020-12-22 21:17 | DI.RAD.S_ITS ---
PROCEDURE: XR TOE RT MIN 2V INDICATIONS: osteo TECHNIQUE: AP view of the foot and two views of the great toe acquired. COMPARISON: [facility], CR, XR FOOT RT MIN 3V, 04/06/2020, 20:57. FINDINGS: Bones: No acute fractures or dislocations. No suspicious bony lesions. There is cortical destruction involving the 3rd middle phalanx and the base of the 3rd distal phalanx that is only partially included on these images. Soft tissues: No suspicious soft tissue densities. Soft tissue edema is seen in the 3rd toe. IMPRESSION: Osseous destruction involving the 3rd middle and distal phalanges with associated soft tissue swelling is suspicious for osteomyelitis in the setting of presumed infection. Dictated by: Jignesh Polk M.D. on 12/22/2020 at 21:49 Approved by: Jignesh Polk M.D. on 12/22/2020 at 21:52
[2020-12-22 21:43] VITALS: BP 180/102; PULSE 89; O2SAT 99
[2020-12-22 21:47] LABS: Add Manual Diff / Slide Review NO; Basophils Absolute Auto 0 /uL (0-100); Basophils Percent Auto 0.4 % (0-2); Eosinophils Absolute Auto 0 /uL (0-450); Eosinophils Percent Auto 0.4 % (2-4); Hematocrit 42.4 % (41-53); Hemoglobin 14.1 g/dL (13.5-17.5); Lymphocytes Absolute Auto 1700 /uL (1100-4500); Lymphocytes Percent Auto 13.4 % (25-40); Mean Corpuscular HGB Conc 33.3 % (30-36); Mean Corpuscular Hemoglobin 27.7 PG (26-34); Mean Corpuscular Volume 83.2 fL (80-100); Monocytes Absolute Auto 900 /uL (0-900); Monocytes Percent Auto 7.1 % (3-14); Neutrophils Absolute Auto 9800 /uL (1500-7000); Neutrophils Percent Auto 78.7 % (50-75); Platelet Count 275 X10^3/uL (150-400); Red Blood Cell Count 5.09 X10^6/uL (4.5-5.9); Red Cell Distribution Width 13.1 % (11.6-14.8); White Blood Cell Count 12.5 X10^3/uL (4.5-11.0)
[2020-12-22 21:54] LABS: Lactate (Lactic Acid) 1.4 mmol/L (0.7-2.1)
[2020-12-22 21:56] LABS: Alanine Aminotransferase 22 IU/L (<50); Albumin 4.3 g/dL (3.5-5.0); Alkaline Phosphatase 75 U/L (38-126); Aspartate Aminotransferase 26 IU/L (17-59); BUN Creatinine Ratio 18.1 (6-22); Blood Urea Nitrogen 15 mg/dL (9-20); C-Reactive Protein Quant 5.6 mg/dL (<1.0); Carbon Dioxide 28 mmol/L (22-32); Chloride 94 mmol/L (98-107); Estimated Glomerular Filt Rate > 60.0 mL/min (>60); Globulin 4.2 g/dL (1.7-4.1); Glucose 310 mg/dL (70-100); HEMOLYSIS < 15 (0-50); Potassium 3.9 mmol/L (3.4-5.1); Sodium 132 mmol/L (137-145); Total Protein 8.5 g/dL (6.3-8.2)
[2020-12-22 21:59] LABS: Hemoglobin A1C% w Est Avg Glu 11.3 % (4.0-6.0)
[2020-12-22 22:00] VITALS: BP 163/99; PULSE 89; O2SAT 97
[2020-12-22 22:16] LABS: Erythrocyte Sedimentation Rate 29 MM/HR (0-15)
[2020-12-22 22:30] VITALS: BP 162/92; PULSE 87; O2SAT 98
[2020-12-22 23:00] VITALS: BP 168/94; PULSE 90; O2SAT 98
--- NOTE | 2020-12-22 23:12 | ED_ITS ---
HPI - Wound/Laceration General Chief Complaint: Wound/Laceration Stated Complaint: open wounds on rt foot Time Seen by Provider: 12/22/20 21:04 Source: patient Mode of arrival: Wheelchair Limitations: no limitations History of Present Illness HPI narrative: 50-year-old male former smoker with history of hypertension, hyperlipidemia and diabetes presents with a gradually worsening appearance of his right middle toe over the course of the past week or so. He has had problems with poorly healing wounds on his left foot, plantar surface as well as medial right garcia for quite some time and has been on antibiotics and has been seen by wound care. He denies any systemic findings such as fever or chills. He has had no nausea or vomiting. He states that he has had increasing pain, swelling and some purple discoloration of his right middle toe in the absence of any injury. He has been taking doxycycline as directed by a wound culture obtained about 1 month ago. Related Data Home Medications Medication Instructions Recorded Confirmed amlodipine 10 mg tablet 10 mg PO DAILY 03/14/18 09/18/20 carvedilol 25 mg tablet 25 mg PO 1300 03/14/18 09/18/20 lisinopril 40 mg tablet 40 mg PO DAILY 03/14/18 09/18/20 metformin 500 mg tablet 850 mg PO BID 03/14/18 09/30/19 chlorthalidone 25 mg tablet 25 mg PO DAILY 03/15/18 09/30/19 Lantus Solostar U-100 Insulin 10 units SUBCUT BID 09/30/19 09/30/19 Novolog PenFill U-100 Insulin 5 units SUBCUT TID 09/30/19 09/30/19 Previous Rx's Medication Instructions Recorded pen needle, diabetic 31 gauge x #60 each 09/08/1906/20 (Pen Needle) levofloxacin 750 mg tablet 750 mg PO DAILY #10 tab 02/03/20 ciprofloxacin HCl 500 mg tablet 500 mg PO BID #20 tab 05/25/20 ondansetron HCl 4 mg tablet 4 mg PO Q6H PRN #10 tab 05/25/20 (Zofran) sulfamethoxazole 800 1 tab PO BID #20 tab 06/23/20 mg-trimethoprim 160 mg tablet (Bactrim DS) metoclopramide HCl 10 mg tablet 10 mg PO Q6H PRN #20 tab 09/18/20 (Reglan) ciprofloxacin HCl 500 mg tablet 500 mg PO BID #20 tab 12/22/20 Allergies Allergy/AdvReac Type Severity Reaction Status Date / Time No Known Drug Allergies Allergy Verified 09/18/20 10:12 Review of Systems Review of Systems Narrative: GENERAL: Denies chills, fatigue, malaise, fever, sweats. HEENT: Denies sinus pain, ear pain, sore throat, difficulty swallowing, dizziness. RESPIRATORY: Denies dyspnea, cough, wheezing, hemoptysis, sputum. CARDIOVASCULAR: Denies chest pain, palpitations, orthopnea, edema, GASTROINTESTINAL: Denies nausea, vomiting, abdominal pain, diarrhea, constipation, melena. : Denies dysuria, frequency, incontinence, hematuria, urinary retention. MUSCULOSKELETAL: denies weakness, joint pain, or bony pain SKIN: D see HPI NEUROLOGIC: Denies weakness, headache, numbness, change in speech, confusion, seizures, incoordination. PSYCHIATRIC: No concerning psychosocial issues. 12 point review of systems is negative except for those stated above Patient History Medical History (Updated 12/23/20 @ 02:11 by Sandeep Pascal DO) Congestive heart failure Diabetes mellitus Hypertension Ulcer of left lower leg Ulcer of right leg Surgical History History of foot surgery Family History Father Myocardial infarction Mother Diabetes mellitus Brother Diabetes mellitus Social History household members: spouse and children Smoking Status: Former smoker alcohol intake: never Smoking Status: Former smoker tobacco type: cigarettes alcohol intake frequency: holidays/special occasions only Substance Use Type: marijuana Exam Narrative Exam Narrative: GENERAL: [50] year old patient appears stated age. Well-developed patient, in mild distress. HEAD: Atraumatic. Normocephalic. EYES: Pupils equal round and reactive. Extraocular motions intact. No scleral icterus. No injection or drainage. ENT: Nose without bleeding, purulent drainage. Throat without erythema, tonsillar hypertrophy or exudate. Airway patent. NECK: Trachea midline. Non tender CARDIOVASCULAR: Regular rate and rhythm without murmurs, gallops, or rubs. RESPIRATORY: Clear to auscultation. Breath sounds equal bilaterally. No wheezes, rales, or rhonchi. GASTROINTESTINAL: Abdomen soft, non-tender, nondistended. EXTREMITIES: Evidence of chronic venous stasis in bilateral lower extremities. There is a superficial draining wound in the medial aspect of his right lower extremity with minimal surrounding erythema. Culture is obtained, there is no induration or fluctuance. Right middle toe is purple and swollen but without any obvious necrosis or as sharp, there is a small break in the skin on the volar surface with minimal drainage, patient has sensation intact though decr eased BACK: Nontender without deformity or crepitance. No flank tenderness. NEURO: AOx3. SKIN: No rash or erythema of visible areas Initial Vital Signs Initial Vital Signs: Vital Signs Temperature 98.2 F 12/22/20 20:36 Pulse Rate 100 H 12/22/20 20:36 Respiratory Rate 16 12/22/20 20:36 Blood Pressure 184/110 H 12/22/20 20:36 Pulse Oximetry 98 12/22/20 20:36 Course Orders Ordered: ED Orders 12/22/20 21:10 Wound Culture and Gram Stain Stat 12/22/20 21:17 XR toe RT min 2V Stat 12/22/20 21:32 A1C [Hemoglobin A1C% w Est Avg Glu] Stat CBC Auto Diff [Complete Blood Count AUTO DIFF] Stat CMP [Comprehensive Metabolic Panel] Stat CRP [C-Reactive Protein Quant] Stat ESR [Erythrocyte Sedimentation Rate] Stat Lactate (Lactic Acid) Stat 12/22/20 21:46 Blood Culture Stat Discontinued Medications Ciprofloxacin (Ciprofloxacin 250 Mg Tablet) 500 mg PO NOW ONE Stop: 12/22/20 23:31 Last Admin: 12/22/20 23:33 Dose: 500 mg Documented by: DORYS Consultations Consultation #1: Discussed with on-call Orthopedics, given the relative chronicity of his findings he recommends and agrees with the alteration in antibiotics and follow- up with wound care. Vital Signs Vital signs: Vital Signs - 8 hr 12/22/20 20:36 12/22/20 21:43 12/22/20 22:00 Temperature 98.2 F Pulse Rate 100 H 89 89 Respiratory Rate 16 Blood Pressure 184/110 H 180/102 H 163/99 H Pulse Oximetry 98 99 97 12/22/20 22:30 12/22/20 23:00 Temperature Pulse Rate 87 90 Respiratory Rate Blood Pressure 162/92 H 168/94 H Pulse Oximetry 98 98 MDM - Wound/Laceration Lab Data Result diagrams: 12/22/20 21:32 12/22/20 21:32 Labs: Lab Results 12/22/20 12/22/20 12/22/20 Range/Units 21:32 21:32 21:32 WBC 12.5 H (4.5-11.0) X10^3/uL RBC 5.09 (4.5-5.9) X10^6/uL Hgb 14.1 (13.5-17.5) g/dL Hct 42.4 (41-53) % MCV 83.2 (80-100) fL MCH 27.7 (26-34) PG MCHC 33.3 (30-36) % RDW 13.1 (11.6-14.8) % Plt Count 275 (150-400) X10^3/uL Neut % (Auto) 78.7 H (50-75) % Lymph % (Auto) 13.4 L (25-40) % [place] % (Auto) 7.1 (3-14) % Eos % (Auto) 0.4 L (2-4) % Baso % (Auto) 0.4 (0-2) % Neut # (Auto) 9800 H (4074-2089) /uL Lymph # (Auto) 1700 (1380-0446) /uL [place] # (Auto) 900 (0-900) /uL Eos # (Auto) 0 (0-450) /uL Baso # (Auto) 0 (0-100) /uL ESR 29 H (0-15) MM/HR Sodium 132 L (137-145) mmol/L Potassium 3.9 (3.4-5.1) mmol/L Chloride 94 L (98-107) mmol/L Carbon Dioxide 28 (22-32) mmol/L BUN 15 (9-20) mg/dL Creatinine 0.83 (0.66-1.25) mg/dL Estimated GFR > 60.0 (>60) mL/min BUN/Creatinine Ratio 18.1 (6-22) Glucose 310 H (70-100) mg/dL Hemoglobin A1c 11.3 H (4.0-6.0) % Lactate (0.7-2.1) mmol/L Calcium 9.0 (8.4-10.2) mg/dL Total Bilirubin 1.0 (0.2-1.3) mg/dL AST 26 (17-59) IU/L ALT 22 (<50) IU/L Alkaline Phosphatase 75 (38-126) U/L C-Reactive Protein 5.6 H (<1.0) mg/dL Total Protein 8.5 H (6.3-8.2) g/dL Albumin 4.3 (3.5-5.0) g/dL Globulin 4.2 H (1.7-4.1) g/dL Albumin/Globulin Ratio 1.0 (1.0-2.8) 12/22/20 Range/Units 21:32 WBC (4.5-11.0) X10^3/uL RBC (4.5-5.9) X10^6/uL Hgb (13.5-17.5) g/dL Hct (41-53) % MCV (80-100) fL MCH (26-34) PG MCHC (30-36) % RDW (11.6-14.8) % Plt Count (150-400) X10^3/uL Neut % (Auto) (50-75) % Lymph % (Auto) (25-40) % [place] % (Auto) (3-14) % Eos % (Auto) (2-4) % Baso % (Auto) (0-2) % Neut # (Auto) (5428-4227) /uL Lymph # (Auto) (2872-2568) /uL [place] # (Auto) (0-900) /uL Eos # (Auto) (0-450) /uL Baso # (Auto) (0-100) /uL ESR (0-15) MM/HR Sodium (137-145) mmol/L Potassium (3.4-5.1) mmol/L Chloride (98-107) mmol/L Carbon Dioxide (22-32) mmol/L BUN (9-20) mg/dL Creatinine (0.66-1.25) mg/dL Estimated GFR (>60) mL/min BUN/Creatinine Ratio (6-22) Glucose (70-100) mg/dL Hemoglobin A1c (4.0-6.0) % Lactate 1.4 (0.7-2.1) mmol/L Calcium (8.4-10.2) mg/dL Total Bilirubin (0.2-1.3) mg/dL AST (17-59) IU/L ALT (<50) IU/L Alkaline Phosphatase (38-126) U/L C-Reactive Protein (<1.0) mg/dL Total Protein (6.3-8.2) g/dL Albumin (3.5-5.0) g/dL Globulin (1.7-4.1) g/dL Albumin/Globulin Ratio (1.0-2.8) MDM Narrative Medical decision making narrative: Patient's history and physical exam raise the suspicion of the possibility of osteomyelitis of his middle toe. He reports a change in the appearance of this toe over the course of the past week or so, there is still sensation, minimal drainage and no obvious a necrotic tissue, crepitance or as sharp. X-ray does suggest osteomyelitis. Discussed with orthopedics and no obvious indication for hospitalization. Recommend quinolone, follow-up with wound care and return precautions have been discussed. Questions answered to his apparent satisfaction Discharge Plan Departure Patient Disposition: Home Clinical Impression: Diabetic infection of right foot, Osteomyelitis of third toe of right foot Activity Restrictions/Additional Instructions: *You have been diagnosed with [right middle toe infection with diabetic complications. *What to do: *Please continue to take your regular medications as directed. [x ] New medication prescriptions sent to your pharmacy: [ ] [ ] New medication written as a paper prescription [ ] No new medications given *Please follow up with with wound care or your [facility] in 2-3 days, call for an appointment. Let them know you were seen in the Emergency Department and that we ask that you be seen in follow up. *If you do not have a primary care provider please contact the [facility] Resource line at [phone]. They will ask some questions about your medical history and help get you set up with a doctor in the community. *Return to Emergency Department if you should have any new, worsening or concerning symptoms, such as [fever greater than 101 F, shaking chills, worsening pain, persistent vomiting or other bothersome symptoms] Prescriptions: New ciprofloxacin HCl 500 mg tablet 500 mg PO BID Qty: 20 0RF No Action metformin 500 mg Tablet 850 mg PO BID 0RF Rx Instructions: states he takes 850 mg carvedilol 25 mg Tablet 25 mg PO 1300 0RF amlodipine 10 mg Tablet 10 mg PO DAILY 0RF lisinopril 40 mg Tablet 40 mg PO DAILY 0RF chlorthalidone 25 mg tablet 25 mg PO DAILY 0RF Label Comments: take 1 tablet by mouth once daily levofloxacin 750 mg tablet 750 mg PO DAILY Qty: 10 0RF ciprofloxacin HCl 500 mg tablet 500 mg PO BID Qty: 20 0RF ondansetron HCl [Zofran] 4 mg tablet 4 mg PO Q6H PRN (Reason: nausea and vomiting) Qty: 10 0RF sulfamethoxazole-trimethoprim [Bactrim DS] 800-160 mg tablet 1 tab PO BID Qty: 20 0RF metoclopramide HCl [Reglan] 10 mg tablet 10 mg PO Q6H PRN (Reason: nausea and vomiting) Qty: 20 0RF (DME) pen needle, diabetic [Pen Needle] 31 gauge x 5/16 needle See Rx Instructions .ROUTE .MEDSUPPLY Qty: 60 0RF Rx Instructions: As directed Lantus Solostar U-100 Insulin 10 units SUBCUT BID 0RF Novolog PenFill U-100 Insulin 5 units SUBCUT TID 0RF Rx Instructions: Takes before each meals. Referrals: Vicente Huerta MD [Physician] - Toño Ovalles MD [Primary Care Provider] -
[2020-12-22] MEDS: CIPROFLOXACIN 250 MG TABLET 500 MG PO (23:33)
--- NOTE | 2020-12-22 23:50 | PC.NURSE ---
Bilat lower legs wrapped with gauze and coban per pt instruction
[2020-12-24 01:13] LABS: Enterococcus species Not Detected (Not Detect); Listeria monocytogenes Not Detected (Not Detect); Staphylococcus species Detected (Not Detect)
[2020-12-24 01:14] LABS: Acinetobacter baumannii Not Detected (Not Detect); Candida albicans Not Detected (Not Detect); Candida glabrata Not Detected (Not Detect); Candida krusei Not Detected (Not Detect); Candida parapsilosis Not Detected (Not Detect); Candida tropicalis Not Detected (Not Detect); E. coli Not Detected (Not Detect); Enterobacter cloacae complex Not Detected (Not Detect); Enterobacteriaceae species Not Detected (Not Detect); Haemophilus influenzae Not Detected (Not Detect); Methicillin-resistant gene Not Detected (Not Detect); Neisseria meningitidis Not Detected (Not Detect); Proteus species Not Detected (Not Detect); Pseudomonas aeruginosa Not Detected (Not Detect); Serratia marcescens Not Detected (Not Detect); Streptococcus agalactiae (Gr B Not Detected (Not Detect); Streptococcus pneumonia Not Detected (Not Detect); Streptococcus pyogenes (Gr A) Not Detected (Not Detect); Streptococcus species Not Detected (Not Detect)
== END 2020-12-22 23:29 | disposition home or self-care (01) ==
PROVIDERS: Emergency Provider Emergency Medicine; PCP Family Medicine
DX: E11.621 Type 2 diabetes mellitus with foot ulcer (principal); L97.411 Non-pressure chronic ulcer of right heel and midfoot limited to breakdown of skin; E11.69 Type 2 diabetes mellitus with other specified complication; M86.171 Other acute osteomyelitis, right ankle and foot; Z79.4 Long term (current) use of insulin; Z79.84 Long term (current) use of oral hypoglycemic drugs
CPT/HCPCS: 36415; 73660; 80053; 83036; 83605; 85025; 85651; 86140; 87040; 87070; 87075; 87077; 87147; 87150; 87186; 87205; 99283; 99284

== ENCOUNTER 2020-12-25 23:21 | Emergency (ER) | payer SELFPAY ==
[2020-12-25 23:32] VITALS: BP 142/78; PULSE 88; RESP 17; TEMP 36.8; O2SAT 99; BMI 36.2
[2020-12-26 00:48] LABS: Add Manual Diff / Slide Review NO; Basophils Absolute Auto 100 /uL (0-100); Eosinophils Absolute Auto 100 /uL (0-450); Hematocrit 38.2 % (41-53); Hemoglobin 12.8 g/dL (13.5-17.5); Lymphocytes Absolute Auto 1700 /uL (1100-4500); Lymphocytes Percent Auto 23.6 % (25-40); Mean Corpuscular HGB Conc 33.5 % (30-36); Mean Corpuscular Hemoglobin 27.8 PG (26-34); Monocytes Absolute Auto 600 /uL (0-900); Monocytes Percent Auto 8.2 % (3-14); Neutrophils Absolute Auto 4700 /uL (1500-7000); Neutrophils Percent Auto 65.2 % (50-75); Platelet Count 258 X10^3/uL (150-400); Red Cell Distribution Width 13.1 % (11.6-14.8); White Blood Cell Count 7.2 X10^3/uL (4.5-11.0)
--- NOTE | 2020-12-26 00:50 | ED_ITS ---
HPI - Extremity Problem General Chief complaint: Extremity Problem,Nontraumatic Stated complaint: right foot infected x7 days return to ER Time Seen by Provider: 12/26/20 00:36 Source: patient Mode of arrival: Ambulatory Limitations: no limitations History of Present Illness HPI Narrative: 50-year-old gentleman with diabetes, hypertension hyperlipidemia and significant peripheral vascular disease with multiple recurrent wounds and poorly healing wounds to both feet, he has been on doxycycline for an extended period of time and ran out of this late last week. He regularly goes to [facility] most recently was about a month ago. His does a phenomenal job of continued wound care and dressing changes at home. 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 He has never seen a cello teacher. Four days ago he noticed that his right foot was increasingly red and he was starting to have some chills. In the past that is always been an indication that his feet were infected again. He was seen in the emergency department. His x-ray suggested osteomyelitis of the right middle toe consistent with his wounds. One of 4 blood cultures was positive for Staph aureus. Wound culture at that time also showed Staph aureus resistant to erythromycin and gentamicin tetracycline and sensitive to everything else including oxacillin and doxycycline He notes that the chills and myalgias that he had had 4 days ago have improved and resolved. Notes no chest pain, tachypnea, tachycardia, abdominal pain, headaches. Still describes sensation is his lower extremities and notes that his feet hurt after he has been standing much of the day. Related Data Home Medications Medication Instructions Recorded Confirmed amlodipine 10 mg tablet 10 mg PO DAILY 03/14/18 09/18/20 carvedilol 25 mg tablet 25 mg PO 1300 03/14/18 09/18/20 lisinopril 40 mg tablet 40 mg PO DAILY 03/14/18 09/18/20 metformin 500 mg tablet 850 mg PO BID 03/14/18 09/30/19 chlorthalidone 25 mg tablet 25 mg PO DAILY 03/15/18 09/30/19 Lantus Solostar U-100 Insulin 10 units SUBCUT BID 09/30/19 09/30/19 Novolog PenFill U-100 Insulin 5 units SUBCUT TID 09/30/19 09/30/19 Previous Rx's Medication Instructions Recorded pen needle, diabetic 31 gauge x #60 each 09/08/1906/20 (Pen Needle) levofloxacin 750 mg tablet 750 mg PO DAILY #10 tab 02/03/20 ciprofloxacin HCl 500 mg tablet 500 mg PO BID #20 tab 05/25/20 ondansetron HCl 4 mg tablet 4 mg PO Q6H PRN #10 tab 05/25/20 (Zofran) sulfamethoxazole 800 1 tab PO BID #20 tab 06/23/20 mg-trimethoprim 160 mg tablet (Bactrim DS) metoclopramide HCl 10 mg tablet 10 mg PO Q6H PRN #20 tab 09/18/20 (Reglan) ciprofloxacin HCl 500 mg tablet 500 mg PO BID #20 tab 12/22/20 ciprofloxacin HCl 500 mg tablet 500 mg PO BID 35 Days #70 tab 12/26/20 doxycycline hyclate 100 mg capsule 100 mg PO BID 42 Days #84 cap 12/26/20 Allergies Allergy/AdvReac Type Severity Reaction Status Date / Time No Known Drug Allergies Allergy Verified 09/18/20 10:12 Review of Systems Review of Systems Narrative: Remainder of complete review of systems is otherwise unremarkable except for that included in the HPI. Patient History Medical History (Updated 12/26/20 @ 01:08 by Hue Tong MD) Congestive heart failure Diabetes mellitus Hypertension Ulcer of left lower leg Ulcer of right leg Surgical History History of foot surgery Family History Father Myocardial infarction Mother Diabetes mellitus Brother Diabetes mellitus Social History household members: spouse and children Smoking Status: Former smoker alcohol intake: never Smoking Status: Former smoker tobacco type: cigarettes alcohol intake frequency: holidays/special occasions only Substance Use Type: marijuana Exam Narrative Exam Narrative: General: Healthy appearing, in no acute distress. Able to give a complete and coherent history. Well-nourished well-developed HEENT: Moist mucous membranes, normal sclera with reactive pupils, Respiratory: Lungs are clear to auscultation, no wheezing no rales no rhonchi. Full and symmetrical air movement Cardiac: Regular rate and rhythm no murmurs on careful auscultationno bruits Abdomen: Soft, nontender, good bowel tones, no flank pain Skin: Warm and dry, no rashes Neurologic: Grossly neurologically intact with no obvious asymmetries or abn ormalities Extremities: Wound care dressings to both lower extremities. The right forefoot is slightly more erythematous than the left. He has a large callus that looks like it is did developing a vesicle under the great toe and 1st metatarsal. His 3rd toe is erythematous with sloughing skin circumferentially. There is still capillary refill at the tip of that toe. Severe onychomycosis and nail dystrophy to all 10 toes Psych: Cooperative, appropriate insight and affect Initial Vital Signs Initial Vital Signs: Vital Signs Temperature 98.3 F 12/25/20 23:32 Pulse Rate 88 12/25/20 23:32 Respiratory Rate 17 12/25/20 23:32 Blood Pressure 142/78 H 12/25/20 23:32 Pulse Oximetry 99 12/25/20 23:32 Course Orders Ordered: ED Orders 12/26/20 00:35 CMP [Comprehensive Metabolic Panel] Stat Complete Blood Count AUTO DIFF Stat Discontinued Medications Ceftriaxone Sodium 2,000 mg/ (Sodium Chloride) 100 mls @ 200 mls/hr IV NOW ONE Stop: 12/26/20 01:27 Last Infusion: 12/26/20 02:26 Dose: 0 mls/hr Documented by: Admin: 12/26/20 01:38 Dose: 200 mls/hr Documented by: HIEU Vital Signs Vital signs: Vital Signs - 8 hr 12/25/20 23:32 12/26/20 02:27 Temperature 98.3 F Pulse Rate 88 89 Respiratory Rate 17 15 Blood Pressure 142/78 H 147/89 H Pulse Oximetry 99 98 MDM - Extremity (Nontraumatic) Lab Data Result diagrams: 12/26/20 00:35 12/26/20 00:35 Labs: Lab Results 12/26/20 12/26/20 Range/Units 00:35 00:35 WBC 7.2 (4.5-11.0) X10^3/uL RBC 4.60 (4.5-5.9) X10^6/uL Hgb 12.8 L (13.5-17.5) g/dL Hct 38.2 L (41-53) % MCV 83.0 (80-100) fL MCH 27.8 (26-34) PG MCHC 33.5 (30-36) % RDW 13.1 (11.6-14.8) % Plt Count 258 (150-400) X10^3/uL Neut % (Auto) 65.2 (50-75) % Lymph % (Auto) 23.6 L (25-40) % [place] % (Auto) 8.2 (3-14) % Eos % (Auto) 2.0 (2-4) % Baso % (Auto) 1.0 (0-2) % Neut # (Auto) 4700 (7765-2834) /uL Lymph # (Auto) 1700 (9663-0923) /uL [place] # (Auto) 600 (0-900) /uL Eos # (Auto) 100 (0-450) /uL Baso # (Auto) 100 (0-100) /uL Sodium 135 L (137-145) mmol/L Potassium 3.8 (3.4-5.1) mmol/L Chloride 99 (98-107) mmol/L Carbon Dioxide 28 (22-32) mmol/L BUN 20 (9-20) mg/dL Creatinine 0.85 (0.66-1.25) mg/dL Estimated GFR > 60.0 (>60) mL/min BUN/Creatinine Ratio 23.5 H (6-22) Glucose 265 H (70-100) mg/dL Calcium 8.9 (8.4-10.2) mg/dL Total Bilirubin 0.6 (0.2-1.3) mg/dL AST 28 (17-59) IU/L ALT 24 (<50) IU/L Alkaline Phosphatase 64 (38-126) U/L Total Protein 7.6 (6.3-8.2) g/dL Albumin 3.7 (3.5-5.0) g/dL Globulin 3.9 (1.7-4.1) g/dL Albumin/Globulin Ratio 0.9 L (1.0-2.8) Imaging Data XR foot 12/22/20: Radiologist's Impression: FINDINGS:? ? Bones:? No acute fractures or dislocations.? No suspicious bony lesions.? There is cortical destruction involving the 3rd middle phalanx and the base of the 3rd distal phalanx that is only partially included on these images. ? Soft tissues:? No suspicious soft tissue densities.? Soft tissue edema is seen in the 3rd toe. ? IMPRESSION:? Osseous destruction involving the 3rd middle and distal phalanges with associated soft tissue swelling is suspicious for osteomyelitis in the setting of presumed infection. ? ? ? Dictated by: Jignesh Polk M.D. on 12/22/2020 at 21:49 ? ? MDM Narrative Medical decision making narrative: 50-year-old gentleman with severe type 2 diabetes and peripheral vascular disease with chronic foot ulcers. After stopping his doxycycline because he ran out of medications the foot infection again flared. Cultures from the show Staph aureus with 1 of 4 blood cultures positive at that time. He was started on ciprofloxacin as feeling significantly better describes no fevers and no additional chills. He still is concerned the wound isn't improving as quickly as he would like. White count is coming down nicely there is no clinical signs of sepsis at this time. His foot needs multiple areas of debridement including the large callus and developing blister over the 1st toe and I suspect his middle toe will eventually need amputation. It does appear that he has a chronic osteomyelitis at that site. He is given 2 g of IV ceftriaxone in the emergency department since he has tolerated doxycycline well and it did seem to be working and cultures indicate it is still sensitive will have him restart this to continue for a minimum of 6 weeks will have him continue the ciprofloxacin again for a minimum of 6 weeks He will set up an appointment with the wound care clinic with phone call Sunday have strongly encouraged him to follow-up with podiatry, suspect that he may well do much better if his middle toe with chronic osteomyelitis is actually amputated. Discharge Plan Departure Patient Disposition: Home Clinical Impression: Diabetic foot ulcer, Chronic osteomyelitis of toe of right foot Instructions: DI for Diabetic Foot Ulcer Activity Restrictions/Additional Instructions: Thank you for coming in tonight The middle toe on your right foot has the bone infected as well. You may find that everything heals faster if you end up having that toe removed. You need to see a cello teacher to at least have this discussion. In the meantime, there are no signs of spreading infection tonight which is fantastic. You do however need to continue double coverage antibiotics for at least 6 weeks. I have given you a new prescription for doxycycline and an extended prescription for ciprofloxacin Prescriptions were electronically transmitted to [facility] this evening. The most important thing that needs to be done is getting in either to Podiatry or the wound care clinic to have some of this tissue debrided to try and help things heal as much as possible. If you had any time begin to feel does chills and the achy all over feeling that suggest the infection is spreading, you need to come back to the ER I wish you the best Prescriptions: New doxycycline hyclate 100 mg capsule 100 mg PO BID 42 Days Qty: 84 0RF ciprofloxacin HCl 500 mg tablet 500 mg PO BID 35 Days Qty: 70 0RF No Action metformin 500 mg Tablet 850 mg PO BID 0RF Rx Instructions: states he takes 850 mg carvedilol 25 mg Tablet 25 mg PO 1300 0RF amlodipine 10 mg Tablet 10 mg PO DAILY 0RF lisinopril 40 mg Tablet 40 mg PO DAILY 0RF chlorthalidone 25 mg tablet 25 mg PO DAILY 0RF Label Comments: take 1 tablet by mouth once daily levofloxacin 750 mg tablet 750 mg PO DAILY Qty: 10 0RF ciprofloxacin HCl 500 mg tablet 500 mg PO BID Qty: 20 0RF ondansetron HCl [Zofran] 4 mg tablet 4 mg PO Q6H PRN (Reason: nausea and vomiting) Qty: 10 0RF sulfamethoxazole-trimethoprim [Bactrim DS] 800-160 mg tablet 1 tab PO BID Qty: 20 0RF metoclopramide HCl [Reglan] 10 mg tablet 10 mg PO Q6H PRN (Reason: nausea and vomiting) Qty: 20 0RF (DME) pen needle, diabetic [Pen Needle] 31 gauge x 5/16 needle See Rx Instructions .ROUTE .MEDSUPPLY Qty: 60 0RF Rx Instructions: As directed Lantus Solostar U-100 Insulin 10 units SUBCUT BID 0RF Novolog PenFill U-100 Insulin 5 units SUBCUT TID 0RF Rx Instructions: Takes before each meals. ciprofloxacin HCl 500 mg tablet 500 mg PO BID Qty: 20 0RF Referrals: Toño Ovalles MD [Primary Care Provider] -
[2020-12-26 00:57] LABS: Alanine Aminotransferase 24 IU/L (<50); Albumin 3.7 g/dL (3.5-5.0); Albumin Globulin Ratio 0.9 (1.0-2.8); Alkaline Phosphatase 64 U/L (38-126); Aspartate Aminotransferase 28 IU/L (17-59); BUN Creatinine Ratio 23.5 (6-22); Bilirubin Total 0.6 mg/dL (0.2-1.3); Blood Urea Nitrogen 20 mg/dL (9-20); Calcium 8.9 mg/dL (8.4-10.2); Carbon Dioxide 28 mmol/L (22-32); Chloride 99 mmol/L (98-107); Estimated Glomerular Filt Rate > 60.0 mL/min (>60); Globulin 3.9 g/dL (1.7-4.1); Glucose 265 mg/dL (70-100); HEMOLYSIS < 15 (0-50); Potassium 3.8 mmol/L (3.4-5.1); Sodium 135 mmol/L (137-145); Total Protein 7.6 g/dL (6.3-8.2)
[2020-12-26] MEDS: cefTRIAXone 2,000 MG in SODIUM CHLORIDE 0.9% 100 ML 200 ML IV (01:38)
[2020-12-26 02:27] VITALS: BP 147/89; PULSE 89; RESP 15; O2SAT 98
== END 2020-12-26 02:28 | disposition home or self-care (01) ==
PROVIDERS: Emergency Provider Emergency Medicine; PCP Family Medicine
DX: E11.621 Type 2 diabetes mellitus with foot ulcer (principal); L97.509 Non-pressure chronic ulcer of other part of unspecified foot with unspecified severity; M86.671 Other chronic osteomyelitis, right ankle and foot; Z79.4 Long term (current) use of insulin; E11.51 Type 2 diabetes mellitus with diabetic peripheral angiopathy without gangrene; I10 Essential (primary) hypertension; E78.5 Hyperlipidemia, unspecified; Z87.891 Personal history of nicotine dependence
CPT/HCPCS: 36415; 80053; 85025; 96365; 99284; J0696

== ENCOUNTER 2021-06-08 15:32 | Emergency (ER) | payer OTHER, SELFPAY ==
[2021-06-08] VITALS (8 sets, daily range): BP systolic 131–175; BP diastolic 83–106; PULSE 78–95; RESP 18; TEMP 36.7; O2SAT 95–98; BMI 37.6
[2021-06-08 16:34] LABS: COVID19 -Nasal RAPID Negative (Negative)
[2021-06-08] MEDS: ONDANSETRON 4 MG/2 ML INJ IV (17:00)
[2021-06-08 17:05] LABS: Add Manual Diff / Slide Review NO; Basophils Absolute Auto 0 /uL (0-100); Basophils Percent Auto 0.3 % (0-2); Eosinophils Absolute Auto 0 /uL (0-450); Eosinophils Percent Auto 0.1 % (2-4); Hemoglobin 15.1 g/dL (13.5-17.5); Lymphocytes Absolute Auto 700 /uL (1100-4500); Lymphocytes Percent Auto 8.4 % (25-40); Mean Corpuscular HGB Conc 35.1 % (30-36); Mean Corpuscular Hemoglobin 28.8 PG (26-34); Mean Corpuscular Volume 82.1 fL (80-100); Monocytes Absolute Auto 500 /uL (0-900); Monocytes Percent Auto 6.3 % (3-14); Neutrophils Absolute Auto 7400 /uL (1500-7000); Neutrophils Percent Auto 84.9 % (50-75); Platelet Count 208 X10^3/uL (150-400); Red Blood Cell Count 5.24 X10^6/uL (4.5-5.9); White Blood Cell Count 8.7 X10^3/uL (4.5-11.0)
[2021-06-08 17:17] LABS: Alanine Aminotransferase 26 IU/L (<50); Albumin 4.2 g/dL (3.5-5.0); Albumin Globulin Ratio 1.1 (1.0-2.8); Alkaline Phosphatase 54 U/L (38-126); Aspartate Aminotransferase 33 IU/L (17-59); BUN Creatinine Ratio 19.2 (6-22); Bilirubin Total 0.8 mg/dL (0.2-1.3); Blood Urea Nitrogen 20 mg/dL (9-20); Calcium 8.6 mg/dL (8.4-10.2); Carbon Dioxide 29 mmol/L (22-32); Chloride 98 mmol/L (98-107); Estimated Glomerular Filt Rate > 60 mL/min (>60); Glucose 171 mg/dL (70-100); HEMOLYSIS < 15 (0-50); Lipase 39 U/L (23-300); Potassium 3.6 mmol/L (3.4-5.1); Sodium 136 mmol/L (137-145); Total Protein 8.2 g/dL (6.3-8.2)
--- NOTE | 2021-06-08 19:13 | ED.GENADULT ---
HPI - General Adult General Chief complaint: Diabetic Problem Stated complaint: Thinks high blood sugar, nausea, vomiting Time Seen by Provider: 06/08/21 19:13 Source: patient Mode of arrival: Ambulatory Limitations: no limitations History of Present Illness HPI narrative: This is a 50-year-old male with insulin-dependent diabetic with history of hypertension and CHF on a NovoLog, Lantus, metformin, amlodipine, lisinopril and carvedilol. He states he is not on Lasix or and diuretic. He comes emergency department concern for elevated blood sugar. Patient states starting Sunday he has had just felt a little bit under the weather. He has had some nausea and some vomiting his blood sugars have been running 220s were higher at times which is atypical. He states he is typically less than 200 blood glucose. He states he has not been following his diet very well. Patient denies any fevers or chills. He denies any headache. No chest pain or pressure. Denies any shortness of breath. He denies any abdominal pain except after immediately vomiting. He denies any back flank pain. He states he has been urinating regularly without any dysuria urgency, frequency or polyuria. No diarrhea constipation. He does have wounds feet which he states are healing well he is following regularly with Podiatry at [facility] for treatment and wound care. He has appointment with them tomorrow. Patient has not had any recent medication changes. Has a history of toe surgery in the past. No allergies to medications. No tobacco, no alcohol he does use THC. His primary care is based out of [place]. Related Data Home Medications Medication Instructions Recorded Confirmed amlodipine 10 mg tablet 10 mg PO DAILY 03/14/18 09/18/20 carvedilol 25 mg tablet 25 mg PO 1300 03/14/18 09/18/20 lisinopril 40 mg tablet 40 mg PO DAILY 03/14/18 09/18/20 metformin 500 mg tablet 850 mg PO BID 03/14/18 09/30/19 chlorthalidone 25 mg tablet 25 mg PO DAILY 03/15/18 09/30/19 Lantus Solostar U-100 Insulin 10 units SUBCUT BID 09/30/19 09/30/19 Novolog PenFill U-100 Insulin 5 units SUBCUT TID 09/30/19 09/30/19 Previous Rx's Medication Instructions Recorded pen needle, diabetic 31 gauge x #60 each 09/08/1906/20 (Pen Needle) levofloxacin 750 mg tablet 750 mg PO DAILY #10 tab 02/03/20 ciprofloxacin HCl 500 mg tablet 500 mg PO BID #20 tab 05/25/20 ondansetron HCl 4 mg tablet 4 mg PO Q6H PRN #10 tab 05/25/20 (Zofran) sulfamethoxazole 800 1 tab PO BID #20 tab 06/23/20 mg-trimethoprim 160 mg tablet (Bactrim DS) metoclopramide HCl 10 mg tablet 10 mg PO Q6H PRN #20 tab 09/18/20 (Reglan) ciprofloxacin HCl 500 mg tablet 500 mg PO BID #20 tab 12/22/20 furosemide 40 mg tablet (Lasix) 40 mg PO DAILY #3 tab 06/08/21 Allergies Allergy/AdvReac Type Severity Reaction Status Date / Time No Known Drug Allergies Allergy Verified 09/18/20 10:12 Review of Systems Review of Systems ROS Unobtainable: All systems reviewed & are unremarkable except as noted in HPI and below Patient History Medical History (Updated 06/08/21 @ 20:28 by Bhavna Gregory DO) Congestive heart failure Diabetes mellitus Hypertension Ulcer of left lower leg Ulcer of right leg Surgical History History of foot surgery Family History Father Myocardial infarction Mother Diabetes mellitus Brother Diabetes mellitus Social History household members: spouse and children Smoking Status: Former smoker alcohol intake: never Smoking Status: Former smoker tobacco type: cigarettes alcohol intake frequency: holidays/special occasions only Substance Use Type: marijuana Exam Narrative Exam Narrative: GENERAL: Alert and oriented x three, male in mild distress. HEENT: Head normocephalic, atraumatic, EOMI, pupils reactive, face symmetric, moist mucous membranes NECK: Supple, full range of motion CARDIOVASCULAR: Regular rate and rhythm without murmurs, rubs or gallops. RESPIRATORY: Breath sounds equal bilaterally, no wheezes rales or rhonchi. ABDOMEN: Soft, nontender. Nondistended. Normoactive bowel sounds all 4 quadrants. No guarding or rebound, rigidity, no mass : No CVA tenderness EXTREMITIES: Normal range of motion, no clubbing or edema. Neurovascularly intact. Patient has wound on left great toe without any arrhythmia or obvious signs of infection. NEUROLOGICAL: Cranial nerves II through XII grossly intact. Moving all extremities SKIN: Warm, dry, no petechiae, no rashes or lesions. Initial Vital Signs Initial Vital Signs: Vital Signs Temperature 98.1 F 06/08/21 15:43 Pulse Rate 95 H 06/08/21 15:43 Respiratory Rate 18 06/08/21 15:43 Blood Pressure 132/85 06/08/21 15:43 Pulse Oximetry 98 06/08/21 15:43 Course Orders Ordered: Discontinued Medications Ondansetron HCl (Ondansetron 4 Mg/2 Ml Inj) 4 mg IV NOW ONE Stop: 06/08/21 16:56 Last Admin: 06/08/21 17:00 Dose: 4 mg Documented by: RAPHAEL Reevaluation(s) Reevaluation #1: Patient continues to feel improved. He feels much better since his arrival. Reviewed his findings today. Vital Signs Vital signs: Vital Signs - 8 hr 06/08/21 15:43 06/08/21 19:02 06/08/21 19:03 Temperature 98.1 F Pulse Rate 95 H 80 80 Respiratory Rate 18 Blood Pressure 132/85 151/96 H Pulse Oximetry 98 98 97 06/08/21 19:30 06/08/21 19:42 06/08/21 19:43 Temperature Pulse Rate 78 88 84 Respiratory Rate Blood Pressure 148/93 H 175/106 H 165/96 H Pulse Oximetry 95 97 98 06/08/21 20:00 Temperature Pulse Rate 78 Respiratory Rate Blood Pressure 131/83 Pulse Oximetry 95 Medical Decision Making Lab Data Result diagrams: 06/08/21 16:52 06/08/21 16:52 Labs: Lab Results 06/08/21 06/08/21 06/08/21 Range/Units 15:48 16:52 16:52 WBC 8.7 (4.5-11.0) X10^3/uL RBC 5.24 (4.5-5.9) X10^6/uL Hgb 15.1 (13.5-17.5) g/dL Hct 43.0 (41-53) % MCV 82.1 (80-100) fL MCH 28.8 (26-34) PG MCHC 35.1 (30-36) % RDW 14.0 (11.6-14.8) % Plt Count 208 (150-400) X10^3/uL Neut % (Auto) 84.9 H (50-75) % Lymph % (Auto) 8.4 L (25-40) % [place] % (Auto) 6.3 (3-14) % Eos % (Auto) 0.1 L (2-4) % Baso % (Auto) 0.3 (0-2) % Neut # (Auto) 7400 H (9307-5781) /uL Lymph # (Auto) 700 L (2945-4276) /uL [place] # (Auto) 500 (0-900) /uL Eos # (Auto) 0 (0-450) /uL Baso # (Auto) 0 (0-100) /uL Sodium 136 L (137-145) mmol/L Potassium 3.6 (3.4-5.1) mmol/L Chloride 98 (98-107) mmol/L Carbon Dioxide 29 (22-32) mmol/L BUN 20 (9-20) mg/dL Creatinine 1.04 (0.66-1.25) mg/dL Estimated GFR > 60 (>60) mL/min BUN/Creatinine Ratio 19.2 (6-22) Glucose 171 H (70-100) mg/dL Calcium 8.6 (8.4-10.2) mg/dL Total Bilirubin 0.8 (0.2-1.3) mg/dL AST 33 (17-59) IU/L ALT 26 (<50) IU/L Alkaline Phosphatase 54 (38-126) U/L Total Creatine Kinase (55-170) U/L CK-MB (CK-2) (<2.37) ng/mL CK-MB (CK-2) Rel Index (1.5-5.0) % Troponin I (0.01-0.034) ng/mL NT-Pro-B Natriuret Pep (<125) pg/mL Total Protein 8.2 (6.3-8.2) g/dL Albumin 4.2 (3.5-5.0) g/dL Globulin 4.0 (1.7-4.1) g/dL Albumin/Globulin Ratio 1.1 (1.0-2.8) Lipase 39 (23-300) U/L Urine RBC (0-5/HPF) Urine WBC (0-5/HPF) Ur Squamous Epith Cells (0-5/HPF) Amorphous Sediment Urine Bacteria (None) Hyaline Casts (None) Urine Mucus (Negative) Urine Sperm Ur Culture Indicated? SARS-CoV-2 (PCR) Negative (Negative) 06/08/21 06/08/21 Range/Units 16:52 19:40 WBC (4.5-11.0) X10^3/uL RBC (4.5-5.9) X10^6/uL Hgb (13.5-17.5) g/dL Hct (41-53) % MCV (80-100) fL MCH (26-34) PG MCHC (30-36) % RDW (11.6-14.8) % Plt Count (150-400) X10^3/uL Neut % (Auto) (50-75) % Lymph % (Auto) (25-40) % [place] % (Auto) (3-14) % Eos % (Auto) (2-4) % Baso % (Auto) (0-2) % Neut # (Auto) (8414-7515) /uL Lymph # (Auto) (0698-8596) /uL [place] # (Auto) (0-900) /uL Eos # (Auto) (0-450) /uL Baso # (Auto) (0-100) /uL Sodium (137-145) mmol/L Potassium (3.4-5.1) mmol/L Chloride (98-107) mmol/L Carbon Dioxide (22-32) mmol/L BUN (9-20) mg/dL Creatinine (0.66-1.25) mg/dL Estimated GFR (>60) mL/min BUN/Creatinine Ratio (6-22) Glucose (70-100) mg/dL Calcium (8.4-10.2) mg/dL Total Bilirubin (0.2-1.3) mg/dL AST (17-59) IU/L ALT (<50) IU/L Alkaline Phosphatase (38-126) U/L Total Creatine Kinase 210 H (55-170) U/L CK-MB (CK-2) 1.74 (<2.37) ng/mL CK-MB (CK-2) Rel Index 0.8 L (1.5-5.0) % Troponin I < 0.012 (0.01-0.034) ng/mL NT-Pro-B Natriuret Pep 638 H (<125) pg/mL Total Protein (6.3-8.2) g/dL Albumin (3.5-5.0) g/dL Globulin (1.7-4.1) g/dL Albumin/Globulin Ratio (1.0-2.8) Lipase (23-300) U/L Urine RBC None seen (0-5/HPF) Urine WBC 10-30/hpf H (0-5/HPF) Ur Squamous Epith Cells 0-1 /hpf (0-5/HPF) Amorphous Sediment 2+ Urine Bacteria None seen (None) Hyaline Casts 5-10/lpf (None) Urine Mucus 2+ H (Negative) Urine Sperm 2 Ur Culture Indicated? Cult not indicated SARS-CoV-2 (PCR) (Negative) Urine Dip Bedside Urine Glucose Negative Bedside Urine Bilirubin - Negative Bedside Urine Ketone + 15 Urine Specific [place] 1.030 Bedside Urine Occult Blood +++ Bedside Urine pH 6 Bedside Urine Protein ++ 100 Bedside Urine Urobilinogen - Negative Bedside Urine Nitrite - Negative Bedside Urine Leukocytes - Negative Esterase Point of care testing: Urine Dip Bedside Urine Glucose Negative Bedside Urine Bilirubin - Negative Bedside Urine Ketone + 15 Urine Specific [place] 1.030 Bedside Urine Occult Blood +++ Bedside Urine pH 6 Bedside Urine Protein ++ 100 Bedside Urine Urobilinogen - Negative Bedside Urine Nitrite - Negative Bedside Urine Leukocytes - Negative Esterase ECG Data Attestation: I personally reviewed and interpreted this ECG as follows: Prior ECG tracings: available for review Interpretation: Sinus rhythm rate 80 ND 176 QRS of 110 and QTC 472. No acute ST elevation depression noted. Patient has prior EKG from 09/18/2020 which appears similar. [facility] Narrative Medical decision making narrative: This is a 50-year-old male with history of diabetes, CHF with nausea and vomiting that started Sunday concern for elevated glucose in the 220s at home. Patient's labs are reassuring, no signs of DKA, EKG does not show any acute changes, cardiac enzymes and bnp included and are negative. Patients urine shows some blood and ketones but no signs of infection. Reviewed findings with patient today suspect he may be developing a viral illness but plan for watchful waiting and patient to return if any worsening symptoms. His exam today is reassuring otherwise. Patient expresses understanding and has follow-up tomorrow with Podiatry. Discharge Plan Departure Patient Disposition: Home Clinical Impression: Nausea and vomiting Activity Restrictions/Additional Instructions: Follow-up with your physician for recheck in the next 1-2 days. Take 1 tablet Lasix daily times next 3 days. Prescription sent to [facility] in [place]. Please return for fevers, new or worsening abdominal, back or flank pain, persistent vomiting, lightheadedness or passing out, black or bloody stools, difficulty with urination or other new or concerning symptoms. Prescriptions: New furosemide [Lasix] 40 mg tablet 40 mg PO DAILY Qty: 3 0RF No Action metformin 500 mg Tablet 850 mg PO BID 0RF Rx Instructions: states he takes 850 mg carvedilol 25 mg Tablet 25 mg PO 1300 0RF amlodipine 10 mg Tablet 10 mg PO DAILY 0RF lisinopril 40 mg Tablet 40 mg PO DAILY 0RF chlorthalidone 25 mg tablet 25 mg PO DAILY 0RF Label Comments: take 1 tablet by mouth once daily levofloxacin 750 mg tablet 750 mg PO DAILY Qty: 10 0RF ciprofloxacin HCl 500 mg tablet 500 mg PO BID Qty: 20 0RF ondansetron HCl [Zofran] 4 mg tablet 4 mg PO Q6H PRN (Reason: nausea and vomiting) Qty: 10 0RF sulfamethoxazole-trimethoprim [Bactrim DS] 800-160 mg tablet 1 tab PO BID Qty: 20 0RF metoclopramide HCl [Reglan] 10 mg tablet 10 mg PO Q6H PRN (Reason: nausea and vomiting) Qty: 20 0RF (DME) pen needle, diabetic [Pen Needle] 31 gauge x 5/16 needle See Rx Instructions .ROUTE .MEDSUPPLY Qty: 60 0RF Rx Instructions: As directed Lantus Solostar U-100 Insulin 10 units SUBCUT BID 0RF Novolog PenFill U-100 Insulin 5 units SUBCUT TID 0RF Rx Instructions: Takes before each meals. ciprofloxacin HCl 500 mg tablet 500 mg PO BID Qty: 20 0RF Referrals: Toño Ovalles MD [Primary Care Provider] -
[2021-06-08 19:54] LABS: Creatine Kinase 210 U/L (55-170)
[2021-06-08 20:07] LABS: NT-proBNP (BNP-Adult 18+) 638 pg/mL (<125); Troponin I < 0.012 ng/mL (0.01-0.034)
[2021-06-08 20:09] LABS: CKMB % Relative Index 0.8 % (1.5-5.0); Creatine Kinase MB 1.74 ng/mL (<2.37)
[2021-06-08 20:10] LABS: Amorphous Sediment Urine 2+; Bacteria Urine None Seen; Hyaline Casts Urine 5-10/LPF; Mucus Urine 2+ (Negative); RBC Urine None Seen (0-5/HPF); Squamous Epithelial Cell Urine 0-1 /HPF (0-5/HPF); WBC Urine 10-30/HPF (0-5/HPF)
[2021-06-08 20:11] LABS: Culture Indicated Urine Cult Not Indicated; Sperm Urine 2
== END 2021-06-08 20:39 | disposition home or self-care (01) ==
PROVIDERS: Emergency Medicine; Emergency Provider Emergency Medicine; PCP Family Medicine
DX: R11.2 Nausea with vomiting, unspecified (principal); Z20.822 Contact with and (suspected) exposure to COVID-19
CPT/HCPCS: 36415; 80053; 81003; 81015; 82550; 82553; 83690; 83880; 84484; 85025; 87635; 93005; 93010; 96374; 99284; C9803; J2405

== ENCOUNTER 2021-06-10 18:16 | Emergency (ER) | payer OTHER, SELFPAY ==
[2021-06-10] VITALS (8 sets, daily range): BP systolic 178–188; BP diastolic 96–105; PULSE 78–90; RESP 20; TEMP 37.1; O2SAT 95–98; BMI 37.6
[2021-06-10] MEDS: ONDANSETRON 4 MG/2 ML INJ IV (19:35)
[2021-06-10 19:43] LABS: Add Manual Diff / Slide Review NO; Basophils Absolute Auto 0 /uL (0-100); Basophils Percent Auto 0.3 % (0-2); Eosinophils Absolute Auto 0 /uL (0-450); Eosinophils Percent Auto 0.1 % (2-4); Hematocrit 42.2 % (41-53); Hemoglobin 14.7 g/dL (13.5-17.5); Lymphocytes Absolute Auto 1200 /uL (1100-4500); Lymphocytes Percent Auto 11.7 % (25-40); Mean Corpuscular Hemoglobin 28.6 PG (26-34); Mean Corpuscular Volume 81.8 fL (80-100); Monocytes Absolute Auto 1200 /uL (0-900); Monocytes Percent Auto 11.8 % (3-14); Neutrophils Absolute Auto 7700 /uL (1500-7000); Neutrophils Percent Auto 76.1 % (50-75); Platelet Count 234 X10^3/uL (150-400); Red Blood Cell Count 5.16 X10^6/uL (4.5-5.9); Red Cell Distribution Width 14.1 % (11.6-14.8); White Blood Cell Count 10.1 X10^3/uL (4.5-11.0)
[2021-06-10 19:59] LABS: HEMOLYSIS < 15 (0-50)
[2021-06-10 20:04] LABS: Alanine Aminotransferase 32 IU/L (<50); Albumin 4.3 g/dL (3.5-5.0); Albumin Globulin Ratio 1.1 (1.0-2.8); Alkaline Phosphatase 54 U/L (38-126); Aspartate Aminotransferase 36 IU/L (17-59); Bilirubin Total 0.9 mg/dL (0.2-1.3); Blood Urea Nitrogen 22 mg/dL (9-20); Calcium 8.7 mg/dL (8.4-10.2); Carbon Dioxide 30 mmol/L (22-32); Chloride 97 mmol/L (98-107); Creatine Kinase 147 U/L (55-170); Estimated Glomerular Filt Rate > 60 mL/min (>60); Glucose 164 mg/dL (70-100); Lipase 53 U/L (23-300); Magnesium 1.6 mg/dL (1.6-2.3); Phosphorous 3.9 mg/dL (2.5-4.5); Potassium 3.8 mmol/L (3.4-5.1); Sodium 135 mmol/L (137-145); Total Protein 8.3 g/dL (6.3-8.2)
[2021-06-10 20:05] LABS: Lactate (Lactic Acid) 1.1 mmol/L (0.7-2.1)
[2021-06-10 20:15] LABS: Troponin I < 0.012 ng/mL (0.01-0.034)
[2021-06-10 20:26] LABS: Ketones (Beta-Hydroxybutyrate) 0.17 mmol/L (<0.27)
[2021-06-10 21:03] LABS: CKMB % Relative Index 0.9 % (1.5-5.0); Creatine Kinase MB 1.26 ng/mL (<2.37)
--- NOTE | 2021-06-10 21:43 | ED.GENADULT ---
HPI - General Adult General Chief complaint: Diabetic Problem Stated complaint: Diabetic problems, thinks high sugar, nausea Time Seen by Provider: 06/10/21 18:51 Source: patient Mode of arrival: Ambulatory Limitations: no limitations History of Present Illness HPI narrative: 50-year-old male who has a history of insulin-dependent diabetes who is here for evaluation of several days of generally not feeling very well. Nausea and vomiting. Fatigue. He states that he has had difficulty keeping his medications down. He was seen here in the emergency department a couple days ago and felt better after Zofran and IV fluids. He states he was not sent home with any nausea medication. He states he has felt like this in the past when his ?A1c ?was elevated. He states that his blood sugars at home have generally been below 200 but has had some occasional above 200. Related Data Home Medications Medication Instructions Recorded Confirmed amlodipine 10 mg tablet 10 mg PO DAILY 03/14/18 09/18/20 carvedilol 25 mg tablet 25 mg PO 1300 03/14/18 09/18/20 lisinopril 40 mg tablet 40 mg PO DAILY 03/14/18 09/18/20 metformin 500 mg tablet 850 mg PO BID 03/14/18 09/30/19 chlorthalidone 25 mg tablet 25 mg PO DAILY 03/15/18 09/30/19 Lantus Solostar U-100 Insulin 10 units SUBCUT BID 09/30/19 09/30/19 Novolog PenFill U-100 Insulin 5 units SUBCUT TID 09/30/19 09/30/19 Previous Rx's Medication Instructions Recorded pen needle, diabetic 31 gauge x #60 each 09/08/1906/20 (Pen Needle) levofloxacin 750 mg tablet 750 mg PO DAILY #10 tab 02/03/20 ciprofloxacin HCl 500 mg tablet 500 mg PO BID #20 tab 05/25/20 ondansetron HCl 4 mg tablet 4 mg PO Q6H PRN #10 tab 05/25/20 (Zofran) sulfamethoxazole 800 1 tab PO BID #20 tab 06/23/20 mg-trimethoprim 160 mg tablet (Bactrim DS) metoclopramide HCl 10 mg tablet 10 mg PO Q6H PRN #20 tab 09/18/20 (Reglan) ciprofloxacin HCl 500 mg tablet 500 mg PO BID #20 tab 12/22/20 furosemide 40 mg tablet (Lasix) 40 mg PO DAILY #3 tab 06/08/21 ondansetron 4 mg disintegrating 4 mg PO TID PRN #14 tab 06/10/21 tablet Allergies Allergy/AdvReac Type Severity Reaction Status Date / Time No Known Drug Allergies Allergy Verified 09/18/20 10:12 Review of Systems Constitutional Constitutional: Reports fatigue, Denies fever(s) and Reports lethargy Cardiovascular Cardiovascular: Denies chest pain and Denies dyspnea Respiratory Respiratory: Denies dyspnea Gastrointestinal Gastrointestinal: Reports system reviewed and no additional complaints, except as documented, Reports nausea and Reports vomiting Integumentary/Breasts Skin/Breast: Reports system reviewed and no additional complaints, except as documented Neurologic Neurologic: Reports system reviewed and no additional complaints, except as documented Endocrine Endocrine: Reports fatigue Hematologic/Lymphatic On Anticoagulants: No Patient History Medical History Congestive heart failure Diabetes mellitus Hypertension Ulcer of left lower leg Ulcer of right leg Surgical History History of foot surgery Family History Father Myocardial infarction Mother Diabetes mellitus Brother Diabetes mellitus Social History household members: spouse and children Smoking Status: Former smoker alcohol intake: never Smoking Status: Former smoker tobacco type: cigarettes alcohol intake frequency: holidays/special occasions only Substance Use Type: marijuana Exam Initial Vital Signs Initial Vital Signs: Vital Signs Temperature 98.7 F 06/10/21 19:17 Pulse Rate 88 06/10/21 19:17 Respiratory Rate 20 06/10/21 19:17 Blood Pressure 178/105 H 06/10/21 19:17 Pulse Oximetry 98 06/10/21 19:17 Const General: cooperative, comfortable and No ill appearing HENMT Head: normal to inspection and normocephalic Resp Effort & Inspection: normal respiratory effort Auscultation: clear to auscultation bilaterally Cardio Rate: regular rate Rhythm: regular rhythm GI Inspection: normal to inspection Palpation: soft Skin General: no rashes or lesions noted Neuro General: patient alert, patient awake, patient oriented x3 and moves all extremities Extrem General: normal to inspection and capillary refill normal Psych Appearance: grossly normal and well kempt Course Orders Ordered: ED Orders 06/10/21 18:52 EKG-12 Lead Stat 06/10/21 19:30 Complete Blood Count AUTO DIFF Stat Comprehensive Metabolic Panel Stat Ketones (Beta-Hydroxybutyrate) Stat Lactate (Lactic Acid) Stat Lipase Stat Magnesium Stat Phosphorous Stat Troponin & CK Cardiac Panel Stat 06/10/21 22:20 Respiratory Panel (Film Array) Stat Discontinued Medications Sodium Chloride (Normal Saline 0.9%) 1,000 mls @ 1,000 mls/hr IV BOLUS ONE Stop: 06/10/21 22:42 Last Infusion: 06/10/21 23:34 Dose: 0 mls/hr Documented by: Admin: 06/10/21 22:24 Dose: 1,000 mls/hr Documented by: ALYSSA Ondansetron HCl (Ondansetron 4 Mg/2 Ml Inj) 4 mg IV NOW ONE Stop: 06/10/21 19:33 Last Admin: 06/10/21 19:35 Dose: 4 mg Documented by: VERONICA Ondansetron HCl (Ondansetron 4 Mg Odt Prepack) 1 bottle MISC SEEINSTR ONE Stop: 06/10/21 23:32 Last Admin: 06/10/21 23:37 Dose: 1 bottle Documented by: DORYS Vital Signs Vital signs: Vital Signs - 8 hr 06/10/21 21:18 06/10/21 21:20 06/10/21 21:30 Pulse Rate 87 90 Blood Pressure 188/99 H Pulse Oximetry 98 98 06/10/21 22:00 06/10/21 22:30 06/10/21 23:00 Pulse Rate 78 80 79 Blood Pressure Pulse Oximetry 95 95 96 06/10/21 23:30 Pulse Rate 83 Blood Pressure 178/96 H Pulse Oximetry 96 Medical Decision Making Lab Data Lab results reviewed: Yes I reviewed the patient's lab results. Result diagrams: 06/10/21 19:30 06/10/21 19:30 Labs: Lab Results 06/10/21 06/10/21 06/10/21 Range/Units 19:30 19:30 19:30 WBC 10.1 (4.5-11.0) X10^3/uL RBC 5.16 (4.5-5.9) X10^6/uL Hgb 14.7 (13.5-17.5) g/dL Hct 42.2 (41-53) % MCV 81.8 (80-100) fL MCH 28.6 (26-34) PG MCHC 35.0 (30-36) % RDW 14.1 (11.6-14.8) % Plt Count 234 (150-400) X10^3/uL Neut % (Auto) 76.1 H (50-75) % Lymph % (Auto) 11.7 L (25-40) % [place] % (Auto) 11.8 (3-14) % Eos % (Auto) 0.1 L (2-4) % Baso % (Auto) 0.3 (0-2) % Neut # (Auto) 7700 H (2790-8485) /uL Lymph # (Auto) 1200 (5423-6509) /uL [place] # (Auto) 1200 H (0-900) /uL Eos # (Auto) 0 (0-450) /uL Baso # (Auto) 0 (0-100) /uL Sodium 135 L (137-145) mmol/L Potassium 3.8 (3.4-5.1) mmol/L Chloride 97 L (98-107) mmol/L Carbon Dioxide 30 (22-32) mmol/L BUN 22 H (9-20) mg/dL Creatinine 1.05 (0.66-1.25) mg/dL Estimated GFR > 60 (>60) mL/min BUN/Creatinine Ratio 21.0 (6-22) Glucose 164 H (70-100) mg/dL Lactate 1.1 (0.7-2.1) mmol/L Calcium 8.7 (8.4-10.2) mg/dL Phosphorus 3.9 (2.5-4.5) mg/dL Magnesium 1.6 (1.6-2.3) mg/dL Total Bilirubin 0.9 (0.2-1.3) mg/dL AST 36 (17-59) IU/L ALT 32 (<50) IU/L Alkaline Phosphatase 54 (38-126) U/L Total Creatine Kinase 147 (55-170) U/L CK-MB (CK-2) 1.26 (<2.37) ng/mL CK-MB (CK-2) Rel Index 0.9 L (1.5-5.0) % Troponin I < 0.012 (0.01-0.034) ng/mL Total Protein 8.3 H (6.3-8.2) g/dL Albumin 4.3 (3.5-5.0) g/dL Globulin 4.0 (1.7-4.1) g/dL Albumin/Globulin Ratio 1.1 (1.0-2.8) Lipase 53 (23-300) U/L Ketones 0.17 (<0.27) mmol/L Chlamy pneumoniae PCR (Not Detect) Adenovirus (PCR) (Not Detect) B. pertussis DNA (PCR) (Not Detecte) B.parapertussis DNA PCR (Not Detecte) Coronavirus OC43 (PCR) (Not Detect) Coronavirus HKU1 (PCR) (Not Detect) Coronavirus 229E (PCR) (Not Detect) SARS-CoV-2 (PCR) (Not Detecte) Coronavirus NL63 (PCR) (Not Detect) Human Metapneumovir PCR (Not Detect) Influenza Type A (PCR) (Not Detect) Influenza Type B (PCR) (Not Detect) M. pneumoniae (PCR) (Not Detect) Parainfluenza 1 (PCR) (Not Detect) Parainfluenza 2 (PCR) (Not Detect) Parainfluenza 3 (PCR) (Not Detect) Parainfluenza 4 (PCR) (Not Detect) RSV (PCR) (Not Detect) Entero/Rhino (PCR) (Not Detect) 06/10/21 Range/Units 22:20 WBC (4.5-11.0) X10^3/uL RBC (4.5-5.9) X10^6/uL Hgb (13.5-17.5) g/dL Hct (41-53) % MCV (80-100) fL MCH (26-34) PG MCHC (30-36) % RDW (11.6-14.8) % Plt Count (150-400) X10^3/uL Neut % (Auto) (50-75) % Lymph % (Auto) (25-40) % [place] % (Auto) (3-14) % Eos % (Auto) (2-4) % Baso % (Auto) (0-2) % Neut # (Auto) (6702-3731) /uL Lymph # (Auto) (8906-6586) /uL [place] # (Auto) (0-900) /uL Eos # (Auto) (0-450) /uL Baso # (Auto) (0-100) /uL Sodium (137-145) mmol/L Potassium (3.4-5.1) mmol/L Chloride (98-107) mmol/L Carbon Dioxide (22-32) mmol/L BUN (9-20) mg/dL Creatinine (0.66-1.25) mg/dL Estimated GFR (>60) mL/min BUN/Creatinine Ratio (6-22) Glucose (70-100) mg/dL Lactate (0.7-2.1) mmol/L Calcium (8.4-10.2) mg/dL Phosphorus (2.5-4.5) mg/dL Magnesium (1.6-2.3) mg/dL Total Bilirubin (0.2-1.3) mg/dL AST (17-59) IU/L ALT (<50) IU/L Alkaline Phosphatase (38-126) U/L Total Creatine Kinase (55-170) U/L CK-MB (CK-2) (<2.37) ng/mL CK-MB (CK-2) Rel Index (1.5-5.0) % Troponin I (0.01-0.034) ng/mL Total Protein (6.3-8.2) g/dL Albumin (3.5-5.0) g/dL Globulin (1.7-4.1) g/dL Albumin/Globulin Ratio (1.0-2.8) Lipase (23-300) U/L Ketones (<0.27) mmol/L Chlamy pneumoniae PCR Not detected (Not Detect) Adenovirus (PCR) Not detected (Not Detect) B. pertussis DNA (PCR) Not detected (Not Detecte) B.parapertussis DNA PCR Not detected (Not Detecte) Coronavirus OC43 (PCR) Not detected (Not Detect) Coronavirus HKU1 (PCR) Not detected (Not Detect) Coronavirus 229E (PCR) Not detected (Not Detect) SARS-CoV-2 (PCR) Not detected (Not Detecte) Coronavirus NL63 (PCR) Not detected (Not Detect) Human Metapneumovir PCR Not detected (Not Detect) Influenza Type A (PCR) Not detected (Not Detect) Influenza Type B (PCR) Not detected (Not Detect) M. pneumoniae (PCR) Not detected (Not Detect) Parainfluenza 1 (PCR) Not detected (Not Detect) Parainfluenza 2 (PCR) Not detected (Not Detect) Parainfluenza 3 (PCR) Not detected (Not Detect) Parainfluenza 4 (PCR) Not detected (Not Detect) RSV (PCR) Not detected (Not Detect) Entero/Rhino (PCR) Not detected (Not Detect) Point of Care Testing Glucose POC 140 Point of care testing: Point of Care Testing Glucose POC 140 MDM Narrative Medical decision making narrative: Patient is nontoxic appearing. Labs are relatively unremarkable. Kidney functions unremarkable. His hyperglycemic but no signs of DKA. He has no chest pain. No shortness of breath. I informed him that we normally do not check hemoglobin A1c in the emergency department as a regular has any implication on treatments that we provide here. I told him that his blood sugar was elevated but he was not to the point of that I would be suspicious that this was causing his discomfort. He has a nonfocal exam otherwise. His respiratory panel was negative. I do have low suspicion for ACS given his presentation, length of time he has had symptoms, negative troponin. Provided reassurance to the patient. Was sent home with Cory. He was informed that he should contact his primary doctor for follow-up to discuss any changes in his diabetic medication. He was given return precautions. He expressed understanding agreement. Discharge Plan Departure Patient Disposition: Home Clinical Impression: Nausea Instructions: DI for Nausea -- Adult Activity Restrictions/Additional Instructions: I do recommend that you use the nausea medication as needed. Continue to take all of your medication as directed. On Sunday contact your primary doctor for follow-up to discuss medication changes. Return to the emergency department for any worsening symptoms. Prescriptions: New ondansetron 4 mg tablet,disintegrating 4 mg PO TID PRN (Reason: nausea and vomiting) Qty: 14 0RF No Action metformin 500 mg Tablet 850 mg PO BID 0RF Rx Instructions: states he takes 850 mg carvedilol 25 mg Tablet 25 mg PO 1300 0RF amlodipine 10 mg Tablet 10 mg PO DAILY 0RF lisinopril 40 mg Tablet 40 mg PO DAILY 0RF chlorthalidone 25 mg tablet 25 mg PO DAILY 0RF Label Comments: take 1 tablet by mouth once daily levofloxacin 750 mg tablet 750 mg PO DAILY Qty: 10 0RF ciprofloxacin HCl 500 mg tablet 500 mg PO BID Qty: 20 0RF ondansetron HCl [Zofran] 4 mg tablet 4 mg PO Q6H PRN (Reason: nausea and vomiting) Qty: 10 0RF sulfamethoxazole-trimethoprim [Bactrim DS] 800-160 mg tablet 1 tab PO BID Qty: 20 0RF metoclopramide HCl [Reglan] 10 mg tablet 10 mg PO Q6H PRN (Reason: nausea and vomiting) Qty: 20 0RF (DME) pen needle, diabetic [Pen Needle] 31 gauge x 5/16 needle See Rx Instructions .ROUTE .MEDSUPPLY Qty: 60 0RF Rx Instructions: As directed Lantus Solostar U-100 Insulin 10 units SUBCUT BID 0RF Novolog PenFill U-100 Insulin 5 units SUBCUT TID 0RF Rx Instructions: Takes before each meals. ciprofloxacin HCl 500 mg tablet 500 mg PO BID Qty: 20 0RF furosemide [Lasix] 40 mg tablet 40 mg PO DAILY Qty: 3 0RF Referrals: Toño Ovalles MD [Primary Care Provider] -
[2021-06-10] MEDS: SODIUM CHLORIDE 0.9% 1,000 ML 1000 ML IV (22:24)
[2021-06-10 23:21] LABS: Adenovirus Not Detected (Not Detect)
[2021-06-10 23:22] LABS: B. parapertussis Not Detected (Not Detecte); Bordetella pertussis Not Detected (Not Detecte); Chlamydophila pneumoniae Not Detected (Not Detect); Coronavirus 229E Not Detected (Not Detect); Coronavirus HKU1 Not Detected (Not Detect); Coronavirus NL 63 Not Detected (Not Detect); Coronavirus OC43 Not Detected (Not Detect); Human Metapneumovirus Not Detected (Not Detect); Human Rhinovirus/Enterovirus Not Detected (Not Detect); Influenza A Not Detected (Not Detect); Influenza B Not Detected (Not Detect); Mycoplasma pneumoniae Not Detected (Not Detect); Parainfluenza Virus 1 Not Detected (Not Detect); Parainfluenza Virus 2 Not Detected (Not Detect); Parainfluenza Virus 3 Not Detected (Not Detect); Parainfluenza Virus 4 Not Detected (Not Detect); Respiratory Syncytial Virus Not Detected (Not Detect); SARS- CoV-2 Not Detected (Not Detecte)
[2021-06-10] MEDS: ONDANSETRON 4 MG ODT PREPACK 1 BOTTLE MISC (23:37)
== END 2021-06-10 23:57 | disposition home or self-care (01) ==
PROVIDERS: Emergency Provider Emergency Medicine; PCP Family Medicine
DX: R11.2 Nausea with vomiting, unspecified (principal); R07.9 Chest pain, unspecified; Z20.822 Contact with and (suspected) exposure to COVID-19
CPT/HCPCS: 36415; 80053; 82009; 82550; 82553; 82962; 83605; 83690; 83735; 84100; 84484; 85025; 87633; 93005; 93010; 99284; J2405

== ENCOUNTER 2021-06-15 21:17 | Emergency (ER) | payer OTHER, SELFPAY ==
--- NOTE | 2021-06-15 22:02 | PC.NURSE ---
Patient states he has been feeling unwell for the last week and was seen twice last week for the same : all over body pain, fatigue, nausea, occasional vomiting. No diagnosis and sent home without admission both times. He states he is a diabetic and did not take his insulin today. States he wants to go home because he does not want to wait in the lobby because the chairs hurt my butt. I asked him if I could please check his vital signs and his blood glucose before he VDC'd. He agreed to this. Blood sugar and vital signs are stable. He departed and I told him to come back anytime.
[2021-06-15 22:04] VITALS: BP 128/90; PULSE 82; RESP 17; O2SAT 98
== END 2021-06-15 22:05 | disposition left against medical advice (07) ==
PROVIDERS: Emergency Provider Emergency Medicine; PCP Family Medicine
DX: R11.2 Nausea with vomiting, unspecified (principal)
CPT/HCPCS: 82962; 99282

== ENCOUNTER 2021-06-17 23:32 | Emergency (ER) | payer OTHER, SELFPAY ==
[2021-06-17 23:41] VITALS: BP 136/86; PULSE 99; RESP 19; TEMP 36.6; O2SAT 100; BMI 37.6
--- NOTE | 2021-06-17 23:51 | ED.NAVMDI ---
HPI - Nausea/Vomiting/Diarrhea General Chief complaint: Nausea/Vomiting/Diarrhea Stated complaint: cant eat x4 days/vomiting up after eating Time Seen by Provider: 06/17/21 23:51 Source: patient Mode of arrival: Ambulatory History of Present Illness HPI Narrative: 50M former smoke with history of diabetes presents with the chief complaint of frequent N/V over the day in the absence of pain. He is feeling fatigued and lightheaded. He denies any change in diet or medications. He's had no fever or chills. He denies chest pain, shortness of breath, runny nose, or sore throat. He has been here multiple times in the past and states he tends to get better on zofran. He denies any exposure to ill persons, bad food or recent travel. He has no upper respiratory symptoms such as runny nose, sore throat or cough Related Data Home Medications Medication Instructions Recorded Confirmed amlodipine 10 mg tablet 10 mg PO DAILY 03/14/18 09/18/20 carvedilol 25 mg tablet 25 mg PO 1300 03/14/18 09/18/20 lisinopril 40 mg tablet 40 mg PO DAILY 03/14/18 09/18/20 metformin 500 mg tablet 850 mg PO BID 03/14/18 09/30/19 chlorthalidone 25 mg tablet 25 mg PO DAILY 03/15/18 09/30/19 Lantus Solostar U-100 Insulin 10 units SUBCUT BID 09/30/19 09/30/19 Novolog PenFill U-100 Insulin 5 units SUBCUT TID 09/30/19 09/30/19 Previous Rx's Medication Instructions Recorded pen needle, diabetic 31 gauge x #60 each 09/08/1906/20 (Pen Needle) levofloxacin 750 mg tablet 750 mg PO DAILY #10 tab 02/03/20 ciprofloxacin HCl 500 mg tablet 500 mg PO BID #20 tab 05/25/20 ondansetron HCl 4 mg tablet 4 mg PO Q6H PRN #10 tab 05/25/20 (Zofran) sulfamethoxazole 800 1 tab PO BID #20 tab 06/23/20 mg-trimethoprim 160 mg tablet (Bactrim DS) metoclopramide HCl 10 mg tablet 10 mg PO Q6H PRN #20 tab 09/18/20 (Reglan) ciprofloxacin HCl 500 mg tablet 500 mg PO BID #20 tab 12/22/20 furosemide 40 mg tablet (Lasix) 40 mg PO DAILY #3 tab 06/08/21 ondansetron 4 mg disintegrating 4 mg PO TID PRN #14 tab 06/10/21 tablet ondansetron 4 mg disintegrating 4 mg PO TID-QID PRN #10 tab 06/18/21 tablet Allergies Allergy/AdvReac Type Severity Reaction Status Date / Time No Known Drug Allergies Allergy Verified 09/18/20 10:12 Review of Systems Review of Systems Narrative: GENERAL: See HPI HEENT: See HPI RESPIRATORY: Denies dyspnea, cough, wheezing, hemoptysis, sputum. CARDIOVASCULAR: Denies chest pain, palpitations, orthopnea, edema, GASTROINTESTINAL: See HPI : Denies dysuria, frequency, incontinence, hematuria, urinary retention. MUSCULOSKELETAL: denies weakness, joint pain, or bony pain SKIN: Denies rash, skin lesions, or other NEUROLOGIC: Denies weakness, headache, numbness, change in speech, confusion, seizures, incoordination. PSYCHIATRIC: No concerning psychosocial issues. 12 point review of systems is negative except for those stated above Patient History Medical History (Updated 06/18/21 @ 04:51 by Sandeep Pascal DO) Congestive heart failure Diabetes mellitus Hypertension Ulcer of left lower leg Ulcer of right leg Surgical History History of foot surgery Family History Father Myocardial infarction Mother Diabetes mellitus Brother Diabetes mellitus Social History household members: spouse and children Smoking Status: Former smoker alcohol intake: never Smoking Status: Former smoker tobacco type: cigarettes alcohol intake frequency: holidays/special occasions only Substance Use Type: marijuana Exam Narrative Exam Narrative: GENERAL: [50] year old patient appears stated age. Well-developed patient, in mild distress. HEAD: Atraumatic. Normocephalic. EYES: Pupils equal round and reactive. Extraocular motions intact. No scleral icterus. No injection or drainage. ENT: Nose without bleeding, purulent drainage. Throat without erythema, tonsillar hypertrophy or exudate. Airway patent. NECK: Trachea midline. Non tender CARDIOVASCULAR: Regular rate and rhythm without murmurs, gallops, or rubs. RESPIRATORY: Clear to auscultation. Breath sounds equal bilaterally. No wheezes, rales, or rhonchi. GASTROINTESTINAL: Abdomen soft, non-tender, nondistended. EXTREMITIES: No edema or joint tenderness. BACK: Nontender without deformity or crepitance. No flank tenderness. NEURO: AOx3. SKIN: No rash or erythema of visible areas Initial Vital Signs Initial Vital Signs: Vital Signs Temperature 97.9 F 06/17/21 23:41 Pulse Rate 99 H 06/17/21 23:41 Respiratory Rate 19 06/17/21 23:41 Blood Pressure 136/86 06/17/21 23:41 Pulse Oximetry 100 06/17/21 23:41 Course Orders Ordered: ED Orders 06/17/21 23:43 Complete Blood Count AUTO DIFF Stat Comprehensive Metabolic Panel Stat Lipase Stat 06/18/21 01:00 VBG [Venous Blood Gas] Stat 06/18/21 01:19 XR acute abdomen series Stat Discontinued Medications Lactated Ringer's (Lactated Ringers) 1,000 mls @ 1,000 mls/hr IV BOLUS ONE Stop: 06/18/21 01:53 Last Infusion: 06/18/21 03:03 Dose: 0 mls/hr Documented by: Admin: 06/18/21 01:06 Dose: 1,000 mls/hr Documented by: DIOMEDES Lactated Ringer's (Lactated Ringers) 1,000 mls @ 1,000 mls/hr IV BOLUS ONE Stop: 06/18/21 03:14 Last Infusion: 06/18/21 04:46 Dose: 0 mls/hr Documented by: Admin: 06/18/21 03:02 Dose: 1,000 mls/hr Documented by: JAUN Ondansetron HCl (Ondansetron 4 Mg Odt Prepack) 1 bottle MISC SEEINSTR ONE Stop: 06/18/21 04:53 Last Admin: 06/18/21 05:22 Dose: 1 bottle Documented by: JAUN Reevaluation(s) Reevaluation #1: Patient feeling significant improvement after above-stated therapies, continues to have no pain, tolerating orals and even eating crackers Vital Signs Vital signs: Vital Signs - 8 hr 06/17/21 23:41 06/18/21 00:13 06/18/21 00:14 Temperature 97.9 F Pulse Rate 99 H 85 85 Respiratory Rate 19 Blood Pressure 136/86 155/89 H Pulse Oximetry 100 98 98 06/18/21 00:30 06/18/21 00:32 06/18/21 01:00 Temperature Pulse Rate 80 79 78 Respiratory Rate 13 18 18 Blood Pressure 148/90 H 161/95 H Pulse Oximetry 97 96 98 06/18/21 01:37 06/18/21 02:00 06/18/21 02:30 Temperature Pulse Rate 86 78 76 Respiratory Rate 20 21 Blood Pressure Pulse Oximetry 98 97 96 06/18/21 03:00 06/18/21 03:30 06/18/21 04:00 Temperature Pulse Rate 80 76 86 Respiratory Rate 16 19 20 Blood Pressure 159/90 H Pulse Oximetry 96 91 97 06/18/21 05:24 Temperature 98 F Pulse Rate 80 Respiratory Rate 20 Blood Pressure 149/88 H Pulse Oximetry 98 MDM - Nausea/Vomiting/Diarrhea Lab Data Result diagrams: 06/18/21 00:25 06/18/21 00:25 Labs: Lab Results 06/18/21 06/18/21 06/18/21 Range/Units 00:25 00:25 01:00 WBC 13.6 H (4.5-11.0) X10^3/uL RBC 4.72 (4.5-5.9) X10^6/uL Hgb 13.4 L (13.5-17.5) g/dL Hct 39.4 L (41-53) % MCV 83.4 (80-100) fL MCH 28.3 (26-34) PG MCHC 34.0 (30-36) % RDW 13.8 (11.6-14.8) % Plt Count 322 (150-400) X10^3/uL Neut % (Auto) 73.6 (50-75) % Lymph % (Auto) 16.1 L (25-40) % [place] % (Auto) 9.7 (3-14) % Eos % (Auto) 0.3 L (2-4) % Baso % (Auto) 0.3 (0-2) % Neut # (Auto) 60227 H (0775-8078) /uL Lymph # (Auto) 2200 (3616-9227) /uL [place] # (Auto) 1300 H (0-900) /uL Eos # (Auto) 0 (0-450) /uL Baso # (Auto) 0 (0-100) /uL VBG pH 7.48 H (7.33-7.43) VBG pCO2 35.9 L (45-50) mmHg VBG pO2 58 H (35-45) mmHg VBG HCO3 27 (23-28) mmol/L VBG Total CO2 28 (24-29) mmol/L VBG O2 Saturation 92 H (70-75) % VBG Base Excess 3.0 (0-4) mmol/L Sodium 131 L (137-145) mmol/L Potassium 4.5 (3.4-5.1) mmol/L Chloride 97 L (98-107) mmol/L Carbon Dioxide 22 (22-32) mmol/L BUN 25 H (9-20) mg/dL Creatinine 1.29 H (0.66-1.25) mg/dL Estimated GFR > 60 (>60) mL/min BUN/Creatinine Ratio 19.4 (6-22) Glucose 200 H (70-100) mg/dL Calcium 8.6 (8.4-10.2) mg/dL Total Bilirubin 1.4 H (0.2-1.3) mg/dL AST 29 (17-59) IU/L ALT 27 (<50) IU/L Alkaline Phosphatase 61 (38-126) U/L Total Protein 8.3 H (6.3-8.2) g/dL Albumin 3.8 (3.5-5.0) g/dL Globulin 4.5 H (1.7-4.1) g/dL Albumin/Globulin Ratio 0.8 L (1.0-2.8) Lipase 124 D (23-300) U/L Urine Dip Bedside Urine Glucose Negative Bedside Urine Bilirubin - Negative Bedside Urine Ketone - Negative Urine Specific [place] 1.015 Bedside Urine Occult Blood + Bedside Urine pH 6.0 Bedside Urine Protein - Negative Bedside Urine Urobilinogen - Negative Bedside Urine Nitrite - Negative Bedside Urine Leukocytes - Negative Esterase MDM Narrative Medical decision making narrative: Patient with reassuring history and physical exam. Labs are unremarkable, tolerating orals after above-stated therapies, return precautions given and questions answered to his apparent satisfaction Discharge Plan Departure Patient Disposition: Home Clinical Impression: Nausea and vomiting Instructions: Nausea and Vomiting-Adult Activity Restrictions/Additional Instructions: *You have been diagnosed with [nausea and vomiting] *What to do: *Please continue to take your regular medications as directed. [ x] New medication prescriptions sent to your pharmacy: [[facility] ] [ ] New medication written as a paper prescription [ ] No new medications given *Please follow up with your primary care provider in 2-3 days, call for an appointment. Let them know you were seen in the Emergency Department and that we ask that you be seen in follow up. We will electronically transmit a record of today's note if your PCP is in our system *If you do not have a primary care provider please contact the [facility] Resource line at [phone]. They will ask some questions about your medical history and help get you set up with a doctor in the community. *Return to Emergency Department if you should have any new, worsening or concerning symptoms, such as [fever greater than 101 F, shaking chills, worsening pain, persistent vomiting or other bothersome symptoms] Prescriptions: New ondansetron 4 mg tablet,disintegrating 4 mg PO TID-QID PRN (Reason: nausea and vomiting) Qty: 10 0RF No Action metformin 500 mg Tablet 850 mg PO BID 0RF Rx Instructions: states he takes 850 mg carvedilol 25 mg Tablet 25 mg PO 1300 0RF amlodipine 10 mg Tablet 10 mg PO DAILY 0RF lisinopril 40 mg Tablet 40 mg PO DAILY 0RF chlorthalidone 25 mg tablet 25 mg PO DAILY 0RF Label Comments: take 1 tablet by mouth once daily levofloxacin 750 mg tablet 750 mg PO DAILY Qty: 10 0RF ciprofloxacin HCl 500 mg tablet 500 mg PO BID Qty: 20 0RF ondansetron HCl [Zofran] 4 mg tablet 4 mg PO Q6H PRN (Reason: nausea and vomiting) Qty: 10 0RF sulfamethoxazole-trimethoprim [Bactrim DS] 800-160 mg tablet 1 tab PO BID Qty: 20 0RF metoclopramide HCl [Reglan] 10 mg tablet 10 mg PO Q6H PRN (Reason: nausea and vomiting) Qty: 20 0RF (DME) pen needle, diabetic [Pen Needle] 31 gauge x 5/16 needle See Rx Instructions .ROUTE .MEDSUPPLY Qty: 60 0RF Rx Instructions: As directed Lantus Solostar U-100 Insulin 10 units SUBCUT BID 0RF Novolog PenFill U-100 Insulin 5 units SUBCUT TID 0RF Rx Instructions: Takes before each meals. ciprofloxacin HCl 500 mg tablet 500 mg PO BID Qty: 20 0RF furosemide [Lasix] 40 mg tablet 40 mg PO DAILY Qty: 3 0RF ondansetron 4 mg tablet,disintegrating 4 mg PO TID PRN (Reason: nausea and vomiting) Qty: 14 0RF Referrals: Toño Ovalles MD [Primary Care Provider] -
[2021-06-18] VITALS (12 sets, daily range): BP systolic 148–161; BP diastolic 88–95; PULSE 76–86; RESP 13–21; TEMP 36.6; O2SAT 91–98
[2021-06-18 00:42] LABS: Add Manual Diff / Slide Review NO; Basophils Absolute Auto 0 /uL (0-100); Basophils Percent Auto 0.3 % (0-2); Eosinophils Absolute Auto 0 /uL (0-450); Eosinophils Percent Auto 0.3 % (2-4); Hematocrit 39.4 % (41-53); Hemoglobin 13.4 g/dL (13.5-17.5); Lymphocytes Absolute Auto 2200 /uL (1100-4500); Lymphocytes Percent Auto 16.1 % (25-40); Mean Corpuscular Hemoglobin 28.3 PG (26-34); Mean Corpuscular Volume 83.4 fL (80-100); Monocytes Absolute Auto 1300 /uL (0-900); Monocytes Percent Auto 9.7 % (3-14); Neutrophils Absolute Auto 10000 /uL (1500-7000); Neutrophils Percent Auto 73.6 % (50-75); Platelet Count 322 X10^3/uL (150-400); Red Blood Cell Count 4.72 X10^6/uL (4.5-5.9); Red Cell Distribution Width 13.8 % (11.6-14.8); White Blood Cell Count 13.6 X10^3/uL (4.5-11.0)
[2021-06-18 00:48] LABS: Alanine Aminotransferase 27 IU/L (<50); Albumin 3.8 g/dL (3.5-5.0); Albumin Globulin Ratio 0.8 (1.0-2.8); Alkaline Phosphatase 61 U/L (38-126); Aspartate Aminotransferase 29 IU/L (17-59); BUN Creatinine Ratio 19.4 (6-22); Bilirubin Total 1.4 mg/dL (0.2-1.3); Blood Urea Nitrogen 25 mg/dL (9-20); Calcium 8.6 mg/dL (8.4-10.2); Carbon Dioxide 22 mmol/L (22-32); Chloride 97 mmol/L (98-107); Estimated Glomerular Filt Rate > 60 mL/min (>60); Globulin 4.5 g/dL (1.7-4.1); Glucose 200 mg/dL (70-100); HEMOLYSIS < 15 (0-50); Lipase 124 U/L (23-300); Potassium 4.5 mmol/L (3.4-5.1); Sodium 131 mmol/L (137-145); Total Protein 8.3 g/dL (6.3-8.2)
[2021-06-18] MEDS: LACTATED RINGERS 1,000 ML 1000 ML IV ×2 (01:06→03:02)
--- NOTE | 2021-06-18 01:19 | DI.RAD.S_ITS ---
PROCEDURE: XR ACUTE ABDOMEN SERIES INDICATIONS: persistent vomiting TECHNIQUE: One view chest and two views of the abdomen were acquired. COMPARISON: Merged With [facility], , XR ACUTE ABDOMEN SERIES, 09/06/2019, 8:14. FINDINGS: Surgical changes and devices: None. Chest: Lungs are clear. Heart size is normal. No pleural effusions. No pneumoperitoneum. Abdomen: Bowel gas pattern appears within normal limits without abnormal distended bowel loops to suggest obstruction. No suspicious calcifications. Bones: No suspicious bony lesions. IMPRESSION: 1. No definite radiographic evidence of obstruction. Dictated by: Nemesio Foreman M.D. on 06/18/2021 at 2:05 Approved by: Nemesio Foreman M.D. on 06/18/2021 at 2:07
[2021-06-18 02:03] LABS: HCO3 VBG 27 mmol/L (23-28); Oxygen Saturation VBG 92 % (70-75); PCO2 VBG 35.9 mmHg (45-50); PO2 VBG 58 mmHg (35-45); Total CO2 VBG 28 mmol/L (24-29); pH VBG 7.48 (7.33-7.43)
[2021-06-18] MEDS: ONDANSETRON 4 MG ODT PREPACK 1 BOTTLE MISC (05:22)
== END 2021-06-18 05:25 | disposition home or self-care (01) ==
PROVIDERS: Emergency Provider Emergency Medicine; PCP Family Medicine
DX: R11.2 Nausea with vomiting, unspecified (principal)
CPT/HCPCS: 36415; 74022; 80053; 81003; 82805; 83690; 85025; 96360; 96361; 99284

== ENCOUNTER 2021-06-27 18:09 | Emergency (ER) | payer OTHER, SELFPAY ==
[2021-06-27 18:44] VITALS: BP 125/84; PULSE 102; RESP 20; TEMP 37.1; O2SAT 98; BMI 36.2
[2021-06-27 19:22] LABS: Add Manual Diff / Slide Review NO; Alanine Aminotransferase 20 IU/L (<50); Albumin 3.5 g/dL (3.5-5.0); Albumin Globulin Ratio 0.8 (1.0-2.8); Alkaline Phosphatase 45 U/L (38-126); Aspartate Aminotransferase 25 IU/L (17-59); Basophils Absolute Auto 0 /uL (0-100); Basophils Percent Auto 0.3 % (0-2); Bilirubin Total 0.8 mg/dL (0.2-1.3); Blood Urea Nitrogen 23 mg/dL (9-20); Calcium 8.3 mg/dL (8.4-10.2); Carbon Dioxide 22 mmol/L (22-32); Chloride 98 mmol/L (98-107); Eosinophils Absolute Auto 100 /uL (0-450); Eosinophils Percent Auto 1.1 % (2-4); Estimated Glomerular Filt Rate > 60 mL/min (>60); Globulin 4.4 g/dL (1.7-4.1); Glucose 137 mg/dL (70-100); HEMOLYSIS 26 (0-50); Hematocrit 37.2 % (41-53); Lipase 146 U/L (23-300); Lymphocytes Absolute Auto 2100 /uL (1100-4500); Mean Corpuscular HGB Conc 34.9 % (30-36); Mean Corpuscular Hemoglobin 28.9 PG (26-34); Mean Corpuscular Volume 82.9 fL (80-100); Monocytes Absolute Auto 900 /uL (0-900); Monocytes Percent Auto 7.9 % (3-14); Neutrophils Absolute Auto 8400 /uL (1500-7000); Neutrophils Percent Auto 72.7 % (50-75); Platelet Count 274 X10^3/uL (150-400); Potassium 4.6 mmol/L (3.4-5.1); Red Blood Cell Count 4.49 X10^6/uL (4.5-5.9); Red Cell Distribution Width 13.2 % (11.6-14.8); Sodium 132 mmol/L (137-145); Total Protein 7.9 g/dL (6.3-8.2); White Blood Cell Count 11.6 X10^3/uL (4.5-11.0)
--- NOTE | 2021-06-27 23:27 | ED_ITS ---
HPI - Weakness General Chief complaint: Weakness Stated complaint: Fatigue/Throwing Up Time Seen by Provider: 06/27/21 21:22 Source: patient Mode of arrival: Ambulatory History of Present Illness HPI Narrative: 50M former smoke with history of diabetes presents with the chief complaint of frequent N/V over the day in the absence of pain. He has a known history of the same and frequently does well when taking Zofran but apparently has not. He feels a bit fatigued and light upon standing but is otherwise well and free of complaint. He denies any other new meds or dietary change. He has had no fever or chills. He denies chest pain or shortness of breath. He has no urinary complaints he has had no change in bowel habits Related Data Home Medications Medication Instructions Recorded Confirmed amlodipine 10 mg tablet 10 mg PO DAILY 03/14/18 09/18/20 carvedilol 25 mg tablet 25 mg PO 1300 03/14/18 09/18/20 lisinopril 40 mg tablet 40 mg PO DAILY 03/14/18 09/18/20 metformin 500 mg tablet 850 mg PO BID 03/14/18 09/30/19 chlorthalidone 25 mg tablet 25 mg PO DAILY 03/15/18 09/30/19 Lantus Solostar U-100 Insulin 10 units SUBCUT BID 09/30/19 09/30/19 Novolog PenFill U-100 Insulin 5 units SUBCUT TID 09/30/19 09/30/19 Previous Rx's Medication Instructions Recorded pen needle, diabetic 31 gauge x #60 each 09/08/1906/20 (Pen Needle) levofloxacin 750 mg tablet 750 mg PO DAILY #10 tab 02/03/20 ciprofloxacin HCl 500 mg tablet 500 mg PO BID #20 tab 05/25/20 ondansetron HCl 4 mg tablet 4 mg PO Q6H PRN #10 tab 05/25/20 (Zofran) sulfamethoxazole 800 1 tab PO BID #20 tab 06/23/20 mg-trimethoprim 160 mg tablet (Bactrim DS) metoclopramide HCl 10 mg tablet 10 mg PO Q6H PRN #20 tab 09/18/20 (Reglan) ciprofloxacin HCl 500 mg tablet 500 mg PO BID #20 tab 12/22/20 furosemide 40 mg tablet (Lasix) 40 mg PO DAILY #3 tab 06/08/21 ondansetron 4 mg disintegrating 4 mg PO TID PRN #14 tab 06/10/21 tablet ondansetron 4 mg disintegrating 4 mg PO TID-QID PRN #10 tab 06/18/21 tablet ondansetron 4 mg disintegrating 4 mg PO TID-QID PRN #10 tab 06/28/21 tablet Allergies Allergy/AdvReac Type Severity Reaction Status Date / Time No Known Drug Allergies Allergy Verified 09/18/20 10:12 Review of Systems Review of Systems Narrative: GENERAL: Denies chills, fatigue, malaise, fever, sweats. HEENT: Denies sinus pain, ear pain, sore throat, difficulty swallowing, dizziness. RESPIRATORY: Denies dyspnea, cough, wheezing, hemoptysis, sputum. CARDIOVASCULAR: Denies chest pain, palpitations, orthopnea, edema, GASTROINTESTINAL: See HPI : Denies dysuria, frequency, incontinence, hematuria, urinary retention. MUSCULOSKELETAL: denies weakness, joint pain, or bony pain SKIN: Denies rash, skin lesions, or other NEUROLOGIC: Denies weakness, headache, numbness, change in speech, confusion, seizures, incoordination. PSYCHIATRIC: No concerning psychosocial issues. 12 point review of systems is negative except for those stated above Patient History Medical History Congestive heart failure Diabetes mellitus Hypertension Ulcer of left lower leg Ulcer of right leg Surgical History History of foot surgery Family History Father Myocardial infarction Mother Diabetes mellitus Brother Diabetes mellitus Social History household members: spouse and children Smoking Status: Former smoker alcohol intake: never Smoking Status: Former smoker tobacco type: cigarettes alcohol intake frequency: holidays/special occasions only Substance Use Type: marijuana Exam Narrative Exam Narrative: GENERAL: [50] year old patient appears stated age. Well-developed patient, in mild distress. HEAD: Atraumatic. Normocephalic. EYES: Pupils equal round and reactive. Extraocular motions intact. No scleral icterus. No injection or drainage. ENT: Nose without bleeding, purulent drainage. Throat without erythema, tonsillar hypertrophy or exudate. Airway patent. NECK: Trachea midline. Non tender CARDIOVASCULAR: Regular rate and rhythm without murmurs, gallops, or rubs. RESPIRATORY: Clear to auscultation. Breath sounds equal bilaterally. No wheezes, rales, or rhonchi. GASTROINTESTINAL: Abdomen soft, non-tender, nondistended. EXTREMITIES: No edema or joint tenderness. BACK: Nontender without deformity or crepitance. No flank tenderness. NEURO: AOx3. SKIN: No rash or erythema of visible areas Initial Vital Signs Initial Vital Signs: Vital Signs Temperature 98.8 F 06/27/21 18:44 Pulse Rate 102 H 06/27/21 18:44 Respiratory Rate 20 06/27/21 18:44 Blood Pressure 125/84 06/27/21 18:44 Pulse Oximetry 98 06/27/21 18:44 Course Orders Ordered: Discontinued Medications Lactated Ringer's (Lactated Ringers) 1,000 mls @ 1,000 mls/hr IV BOLUS ONE Stop: 06/28/21 01:24 Last Infusion: 06/28/21 01:29 Dose: 0 mls/hr Documented by: Admin: 06/28/21 00:31 Dose: 1,000 mls/hr Documented by: [email or web address] Ondansetron HCl (Ondansetron 4 Mg/2 Ml Inj) 4 mg IV NOW ONE Stop: 06/28/21 00:27 Last Admin: 06/28/21 00:31 Dose: 4 mg Documented by: [email or web address] Pantoprazole Sodium (Pantoprazole 40 Mg Vial) 40 mg IV NOW ONE Stop: 06/28/21 00:27 Last Admin: 06/28/21 00:31 Dose: 40 mg Documented by: [email or web address] Vital Signs Vital signs: Vital Signs - 8 hr 06/27/21 18:44 Temperature 98.8 F Pulse Rate 102 H Respiratory Rate 20 Blood Pressure 125/84 Pulse Oximetry 98 MDM - Weakness Lab Data Result diagrams: 06/27/21 19:00 06/27/21 19:00 Labs: Lab Results 06/27/21 06/27/21 06/27/21 Range/Units 19:00 19:00 19:00 WBC 11.6 H (4.5-11.0) X10^3/uL RBC 4.49 L (4.5-5.9) X10^6/uL Hgb 13.0 L (13.5-17.5) g/dL Hct 37.2 L (41-53) % MCV 82.9 (80-100) fL MCH 28.9 (26-34) PG MCHC 34.9 (30-36) % RDW 13.2 (11.6-14.8) % Plt Count 274 (150-400) X10^3/uL Neut % (Auto) 72.7 (50-75) % Lymph % (Auto) 18.0 L (25-40) % [place] % (Auto) 7.9 (3-14) % Eos % (Auto) 1.1 L (2-4) % Baso % (Auto) 0.3 (0-2) % Neut # (Auto) 8400 H (0084-5911) /uL Lymph # (Auto) 2100 (3461-7080) /uL [place] # (Auto) 900 (0-900) /uL Eos # (Auto) 100 (0-450) /uL Baso # (Auto) 0 (0-100) /uL Sodium 132 L (137-145) mmol/L Potassium 4.6 (3.4-5.1) mmol/L Chloride 98 (98-107) mmol/L Carbon Dioxide 22 (22-32) mmol/L BUN 23 H (9-20) mg/dL Creatinine 1.21 (0.66-1.25) mg/dL Estimated GFR > 60 (>60) mL/min BUN/Creatinine Ratio 19.0 (6-22) Glucose 137 H (70-100) mg/dL Calcium 8.3 L (8.4-10.2) mg/dL Total Bilirubin 0.8 (0.2-1.3) mg/dL AST 25 (17-59) IU/L ALT 20 (<50) IU/L Alkaline Phosphatase 45 (38-126) U/L Troponin I < 0.012 (0.01-0.034) ng/mL Total Protein 7.9 (6.3-8.2) g/dL Albumin 3.5 (3.5-5.0) g/dL Globulin 4.4 H (1.7-4.1) g/dL Albumin/Globulin Ratio 0.8 L (1.0-2.8) Lipase 146 (23-300) U/L Procalcitonin 0.21 (<0.5) ng/mL Urine Color Urine Appearance Urine pH (4.5-8.0) Ur Specific [place] (1.000-1.035) Urine Protein (Negative) Urine Glucose (UA) (Negative) g/dL Urine Ketones (NEGATIVE) Urine Occult Blood (Negative) Urine Nitrate (Negative) Urine Bilirubin (NEGATIVE) Urine Urobilinogen (0.2) E.U./dL Ur Leukocyte Esterase (NEGATIVE) Urine RBC (0-5/HPF) Urine WBC (0-5/HPF) Urine Bacteria (None) Urine Mucus (Negative) Urine Sperm Ur Culture Indicated? 06/27/21 Range/Units 23:42 WBC (4.5-11.0) X10^3/uL RBC (4.5-5.9) X10^6/uL Hgb (13.5-17.5) g/dL Hct (41-53) % MCV (80-100) fL MCH (26-34) PG MCHC (30-36) % RDW (11.6-14.8) % Plt Count (150-400) X10^3/uL Neut % (Auto) (50-75) % Lymph % (Auto) (25-40) % [place] % (Auto) (3-14) % Eos % (Auto) (2-4) % Baso % (Auto) (0-2) % Neut # (Auto) (0092-9980) /uL Lymph # (Auto) (8697-2498) /uL [place] # (Auto) (0-900) /uL Eos # (Auto) (0-450) /uL Baso # (Auto) (0-100) /uL Sodium (137-145) mmol/L Potassium (3.4-5.1) mmol/L Chloride (98-107) mmol/L Carbon Dioxide (22-32) mmol/L BUN (9-20) mg/dL Creatinine (0.66-1.25) mg/dL Estimated GFR (>60) mL/min BUN/Creatinine Ratio (6-22) Glucose (70-100) mg/dL Calcium (8.4-10.2) mg/dL Total Bilirubin (0.2-1.3) mg/dL AST (17-59) IU/L ALT (<50) IU/L Alkaline Phosphatase (38-126) U/L Troponin I (0.01-0.034) ng/mL Total Protein (6.3-8.2) g/dL Albumin (3.5-5.0) g/dL Globulin (1.7-4.1) g/dL Albumin/Globulin Ratio (1.0-2.8) Lipase (23-300) U/L Procalcitonin (<0.5) ng/mL Urine Color Yellow Urine Appearance Clear Urine pH 5.0 (4.5-8.0) Ur Specific [place] 1.020 (1.000-1.035) Urine Protein Trace H (Negative) Urine Glucose (UA) Trace H (Negative) g/dL Urine Ketones Trace H (NEGATIVE) Urine Occult Blood 3+ H (Negative) Urine Nitrate Negative (Negative) Urine Bilirubin Negative (NEGATIVE) Urine Urobilinogen 0.2 (0.2) E.U./dL Ur Leukocyte Esterase Negative (NEGATIVE) Urine RBC 1-5/hpf (0-5/HPF) Urine WBC 0-1/hpf (0-5/HPF) Urine Bacteria None seen (None) Urine Mucus 1+ H (Negative) Urine Sperm Present Ur Culture Indicated? Cult not indicated Point of Care Testing Glucose POC 129 MDM Narrative Medical decision making narrative: Patient has significant, if not complete resolution of symptoms after above- stated therapies. He has no pain, reassuring labs, vital signs and response to therapies. Return precautions discussed and questions answered to his apparent satisfaction Discharge Plan Departure Patient Disposition: Home Clinical Impression: Nausea and vomiting Instructions: DI for Nausea -- Adult Activity Restrictions/Additional Instructions: *You have been diagnosed with [nausea and vomiting with reassuring history and physical exam, labs and response to therapies. *What to do: *Please continue to take your regular medications as directed. [ x] New medication prescriptions sent to your pharmacy: [ [facility]] [ ] New medication written as a paper prescription [ ] No new medications given *Please follow up with your primary care provider in 2-3 days, call for an ap pointment. Let them know you were seen in the Emergency Department and that we ask that you be seen in follow up. We will electronically transmit a record of today's note if your PCP is in our system *as we discussed, please consider a clear liquid diet for the next 24-48 hours and then slowly advance as tolerated *Return to Emergency Department if you should have any new, worsening or concerning symptoms, such as [fever greater than 101 F, shaking chills, worsening pain, persistent vomiting or other bothersome symptoms] Prescriptions: New ondansetron 4 mg tablet,disintegrating 4 mg PO TID-QID PRN (Reason: nausea and vomiting) Qty: 10 0RF No Action metformin 500 mg Tablet 850 mg PO BID 0RF Rx Instructions: states he takes 850 mg carvedilol 25 mg Tablet 25 mg PO 1300 0RF amlodipine 10 mg Tablet 10 mg PO DAILY 0RF lisinopril 40 mg Tablet 40 mg PO DAILY 0RF chlorthalidone 25 mg tablet 25 mg PO DAILY 0RF Label Comments: take 1 tablet by mouth once daily levofloxacin 750 mg tablet 750 mg PO DAILY Qty: 10 0RF ciprofloxacin HCl 500 mg tablet 500 mg PO BID Qty: 20 0RF ondansetron HCl [Zofran] 4 mg tablet 4 mg PO Q6H PRN (Reason: nausea and vomiting) Qty: 10 0RF sulfamethoxazole-trimethoprim [Bactrim DS] 800-160 mg tablet 1 tab PO BID Qty: 20 0RF metoclopramide HCl [Reglan] 10 mg tablet 10 mg PO Q6H PRN (Reason: nausea and vomiting) Qty: 20 0RF ondansetron 4 mg tablet,disintegrating 4 mg PO TID-QID PRN (Reason: nausea and vomiting) Qty: 10 0RF (DME) pen needle, diabetic [Pen Needle] 31 gauge x 5/16 needle See Rx Instructions .ROUTE .MEDSUPPLY Qty: 60 0RF Rx Instructions: As directed Lantus Solostar U-100 Insulin 10 units SUBCUT BID 0RF Novolog PenFill U-100 Insulin 5 units SUBCUT TID 0RF Rx Instructions: Takes before each meals. ciprofloxacin HCl 500 mg tablet 500 mg PO BID Qty: 20 0RF furosemide [Lasix] 40 mg tablet 40 mg PO DAILY Qty: 3 0RF ondansetron 4 mg tablet,disintegrating 4 mg PO TID PRN (Reason: nausea and vomiting) Qty: 14 0RF Referrals: Toño Ovalles MD [Primary Care Provider] -
[2021-06-28 00:11] LABS: Troponin I < 0.012 ng/mL (0.01-0.034)
[2021-06-28 00:15] LABS: Procalcitonin 0.21 ng/mL (<0.5)
[2021-06-28] MEDS: LACTATED RINGERS 1,000 ML 1000 ML IV (00:31)
[2021-06-28] MEDS: PANTOPRAZOLE 40 MG VIAL IV (00:31)
[2021-06-28] MEDS: ONDANSETRON 4 MG/2 ML INJ IV (00:31)
[2021-06-28 00:39] LABS: Appearance Urine UA CLEAR; Bilirubin Urine UA NEGATIVE (NEGATIVE); Color Urine UA YELLOW; Glucose Urine UA TRACE g/dL (Negative); Ketones Urine UA TRACE (NEGATIVE); Leukocyte Esterase Urine UA NEGATIVE (NEGATIVE); Nitrite Urine UA NEGATIVE (Negative); Occult Blood Urine UA 3+ (Negative); Protein Urine UA TRACE (Negative); Urobilinogen Urine UA 0.2 E.U./dL (0.2)
[2021-06-28 01:01] LABS: Bacteria Urine None Seen; Culture Indicated Urine Cult Not Indicated; Mucus Urine 1+ (Negative); RBC Urine 1-5/HPF (0-5/HPF); Sperm Urine Present; WBC Urine 0-1/HPF (0-5/HPF)
[2021-06-28 01:44] VITALS: BP 161/79; PULSE 81; RESP 17; O2SAT 98
== END 2021-06-28 01:45 | disposition home or self-care (01) ==
PROVIDERS: Emergency Provider Emergency Medicine; PCP Family Medicine
DX: R11.2 Nausea with vomiting, unspecified (principal); R53.83 Other fatigue
CPT/HCPCS: 36415; 80053; 81001; 82962; 83690; 84145; 84484; 85025; 93005; 96361; 96374; 96375; 99284; C9113; J2405

== ENCOUNTER 2021-08-10 14:58 | Emergency (ER) | payer OTHER, SELFPAY ==
[2021-08-10 15:09] VITALS: BP 155/107; PULSE 90; RESP 16; TEMP 36.7; O2SAT 98
[2021-08-10 15:40] LABS: COVID19 -Nasal RAPID POSITIVE (Negative)
--- NOTE | 2021-08-10 19:14 | DI.RAD.S_ITS ---
PROCEDURE: XR CHEST 2V INDICATIONS: SOB, ADB pain, N/V TECHNIQUE: 2 views of the chest were acquired. COMPARISON: , CR, XR CHEST 1V, 09/16/2020, 19:12. FINDINGS: Surgical changes and devices: None. Lungs and pleura: Lungs are clear. No pleural effusions or pneumothorax. Mediastinum: Mediastinal contours are normal. Heart size is normal. Bones and chest wall: No suspicious bony abnormalities. Soft tissues appear unremarkable. IMPRESSION: No evidence acute pulmonary process. Dictated by: Tod Jose M.D. on 08/10/2021 at 19:45 Approved by: Tod Jose M.D. on 08/10/2021 at 19:47
[2021-08-10] MEDS: ONDANSETRON 4 MG/2 ML INJ IV (19:22)
[2021-08-10 19:28] LABS: Add Manual Diff / Slide Review NO; Basophils Absolute Auto 0 /uL (0-100); Basophils Percent Auto 0.3 % (0-2); Eosinophils Absolute Auto 0 /uL (0-450); Eosinophils Percent Auto 0.2 % (2-4); Hematocrit 42.2 % (41-53); Hemoglobin 14.2 g/dL (13.5-17.5); Lymphocytes Absolute Auto 1800 /uL (1100-4500); Lymphocytes Percent Auto 42.9 % (25-40); Mean Corpuscular HGB Conc 33.6 % (30-36); Mean Corpuscular Hemoglobin 27.3 PG (26-34); Mean Corpuscular Volume 81.4 fL (80-100); Monocytes Absolute Auto 600 /uL (0-900); Monocytes Percent Auto 14.6 % (3-14); Neutrophils Absolute Auto 1700 /uL (1500-7000); Platelet Count 257 X10^3/uL (150-400); Red Blood Cell Count 5.19 X10^6/uL (4.5-5.9); Red Cell Distribution Width 14.3 % (11.6-14.8); White Blood Cell Count 4.1 X10^3/uL (4.5-11.0)
[2021-08-10 19:43] LABS: Alanine Aminotransferase 32 IU/L (<50); Albumin 4.3 g/dL (3.5-5.0); Albumin Globulin Ratio 0.8 (1.0-2.8); Alkaline Phosphatase 53 U/L (38-126); Aspartate Aminotransferase 49 IU/L (17-59); Bilirubin Total 0.9 mg/dL (0.2-1.3); Blood Urea Nitrogen 32 mg/dL (9-20); Carbon Dioxide 32 mmol/L (22-32); Chloride 98 mmol/L (98-107); Estimated Glomerular Filt Rate > 60 mL/min (>60); Globulin 5.6 g/dL (1.7-4.1); Glucose 145 mg/dL (70-100); HEMOLYSIS < 15 (0-50); Lipase 137 U/L (23-300); Sodium 141 mmol/L (137-145); Total Protein 9.9 g/dL (6.3-8.2)
--- NOTE | 2021-08-10 19:56 | ED_ITS ---
HPI - Nausea/Vomiting/Diarrhea General Chief complaint: Nausea/Vomiting/Diarrhea Stated complaint: vomiting,weakness, cant eat sincemonday Time Seen by Provider: 08/10/21 19:54 Source: patient Mode of arrival: Ambulatory History of Present Illness HPI Narrative: 51-year-old gentleman with history of diabetes, hypertension, hyperlipidemia, chronic foot ulcers who presents with 3 days of increasing general malaise mild cough vomiting diarrhea. He describes no chest pain, no headaches. He notes that is chronic foot ulcers are continuing to improve. Related Data Home Medications Medication Instructions Recorded Confirmed amlodipine 10 mg tablet 10 mg PO DAILY 03/14/18 09/18/20 carvedilol 25 mg tablet 25 mg PO 1300 03/14/18 09/18/20 lisinopril 40 mg tablet 40 mg PO DAILY 03/14/18 09/18/20 metformin 500 mg tablet 850 mg PO BID 03/14/18 09/30/19 chlorthalidone 25 mg tablet 25 mg PO DAILY 03/15/18 09/30/19 Lantus Solostar U-100 Insulin 10 units SUBCUT BID 09/30/19 09/30/19 Novolog PenFill U-100 Insulin 5 units SUBCUT TID 09/30/19 09/30/19 Previous Rx's Medication Instructions Recorded pen needle, diabetic 31 gauge x #60 ea 09/08/1906/20 (Pen Needle) levofloxacin 750 mg tablet 750 mg PO DAILY #10 tabs 02/03/20 ciprofloxacin HCl 500 mg tablet 500 mg PO BID #20 tabs 05/25/20 ondansetron HCl 4 mg tablet 4 mg PO Q6H PRN nausea and 05/25/20 (Zofran) vomiting #10 tabs sulfamethoxazole 800 1 tab PO BID #20 tabs 06/23/20 mg-trimethoprim 160 mg tablet (Bactrim DS) metoclopramide HCl 10 mg tablet 10 mg PO Q6H PRN nausea and 09/18/20 (Reglan) vomiting #20 tabs ciprofloxacin HCl 500 mg tablet 500 mg PO BID #20 tabs 12/22/20 furosemide 40 mg tablet (Lasix) 40 mg PO DAILY #3 tabs 06/08/21 ondansetron 4 mg disintegrating 4 mg PO TID PRN nausea and 06/10/21 tablet vomiting #14 tabs ondansetron 4 mg disintegrating 4 mg PO TID-QID PRN nausea and 06/18/21 tablet vomiting #10 tabs ondansetron 4 mg disintegrating 4 mg PO TID-QID PRN nausea and 06/28/21 tablet vomiting #10 tabs ondansetron 4 mg disintegrating 4 mg PO Q8H PRN nausea and 08/10/21 tablet vomiting #14 tabs Allergies Allergy/AdvReac Type Severity Reaction Status Date / Time No Known Drug Allergies Allergy Verified 09/18/20 10:12 Review of Systems Review of Systems Narrative: Remainder of complete review of systems is otherwise unremarkable except for that included in the HPI. Patient History Medical History Congestive heart failure COVID Diabetes mellitus Hypertension Ulcer of left lower leg Ulcer of right leg Surgical History History of foot surgery Family History Father Myocardial infarction Mother Diabetes mellitus Brother Diabetes mellitus Social History household members: spouse and children Smoking Status: Former smoker alcohol intake: never Smoking Status: Former smoker tobacco type: cigarettes alcohol intake frequency: holidays/special occasions only Substance Use Type: marijuana Exam Initial Vital Signs Initial Vital Signs: Vital Signs Temperature 98.1 F 08/10/21 15:09 Pulse Rate 90 08/10/21 15:09 Respiratory Rate 16 08/10/21 15:09 Blood Pressure 155/107 H 08/10/21 15:09 Pulse Oximetry 98 08/10/21 15:09 Oxygen Delivery Method 08/10/21 15:09 General: Fatigued appearing but in no acute distress. Able to give a complete and coherent history. Well-nourished well-developed HEENT: Moist mucous membranes, normal sclera with reactive pupils, Neck: No JVD, supple Respiratory: Lungs are clear to auscultation, no wheezing no rales no rhonchi. Full and symmetrical air movement Cardiac: Regular rate and rhythm, 3/6 murmur, no bruits Abdomen: Soft, nontender, good bowel tones, no flank pain Skin: Warm and dry, no rashes. Wound care dressings are in place over lower extremities are not removed. They are clean and dry. Neurologic: Globally weak but Grossly neurologically intact with no obvious asymmetries or abnormalities Extremities: No trauma, Psych: Cooperative, appropriate insight and affect Course Orders Ordered: Discontinued Medications Sodium Chloride (Normal Saline 0.9%) 1,000 mls @ 1,000 mls/hr IV BOLUS ONE Stop: 08/10/21 20:56 Last Infusion: 08/10/21 22:04 Dose: 0 mls/hr Documented By: Admin: 08/10/21 20:03 Dose: 1,000 mls/hr Documented By: ALEK Ondansetron HCl (Ondansetron 4 Mg/2 Ml Inj) 4 mg IV NOW ONE Stop: 08/10/21 15:13 Last Admin: 08/10/21 19:22 Dose: 4 mg Documented By: LORRIE Ondansetron HCl (Ondansetron 4 Mg/2 Ml Inj) 4 mg IV NOW ONE Stop: 08/10/21 19:15 Last Admin: 08/10/21 19:23 Dose: Not Given Documented By: LORRIE Ondansetron HCl (Ondansetron 4 Mg Odt Prepack) 1 bottle MISC SEEINSTR ONE Stop: 08/10/21 22:14 Last Admin: 08/10/21 22:27 Dose: 1 bottle Documented By: LORRIE Vital Signs Vital signs: Vital Signs - 8 hr 08/10/21 22:28 Pulse Rate 88 Respiratory Rate 21 Blood Pressure 159/89 H Pulse Oximetry 96 Oxygen Delivery Method Room Air MDM - Nausea/Vomiting/Diarrhea Lab Data Result diagrams: 08/10/21 19:21 08/10/21 19:21 Labs: Lab Results 08/10/21 08/10/21 08/10/21 Range/Units 15:14 19:21 19:21 WBC 4.1 L (4.5-11.0) X10^3/uL RBC 5.19 (4.5-5.9) X10^6/uL Hgb 14.2 (13.5-17.5) g/dL Hct 42.2 (41-53) % MCV 81.4 (80-100) fL MCH 27.3 (26-34) PG MCHC 33.6 (30-36) % RDW 14.3 (11.6-14.8) % Plt Count 257 (150-400) X10^3/uL Neut % (Auto) 42.0 L (50-75) % Lymph % (Auto) 42.9 H (25-40) % [place] % (Auto) 14.6 H (3-14) % Eos % (Auto) 0.2 L (2-4) % Baso % (Auto) 0.3 (0-2) % Neut # (Auto) 1700 (9334-9676) /uL Lymph # (Auto) 1800 (3850-5583) /uL [place] # (Auto) 600 (0-900) /uL Eos # (Auto) 0 (0-450) /uL Baso # (Auto) 0 (0-100) /uL Sodium 141 (137-145) mmol/L Potassium 4.0 (3.4-5.1) mmol/L Chloride 98 (98-107) mmol/L Carbon Dioxide 32 (22-32) mmol/L BUN 32 H (9-20) mg/dL Creatinine 1.28 H (0.66-1.25) mg/dL Estimated GFR > 60 (>60) mL/min BUN/Creatinine Ratio 25.0 H (6-22) Glucose 145 H (70-100) mg/dL Calcium 9.0 (8.4-10.2) mg/dL Total Bilirubin 0.9 (0.2-1.3) mg/dL AST 49 (17-59) IU/L ALT 32 (<50) IU/L Alkaline Phosphatase 53 (38-126) U/L Troponin I (0.01-0.034) ng/mL Total Protein 9.9 H (6.3-8.2) g/dL Albumin 4.3 (3.5-5.0) g/dL Globulin 5.6 H (1.7-4.1) g/dL Albumin/Globulin Ratio 0.8 L (1.0-2.8) Lipase 137 (23-300) U/L SARS-CoV-2 (PCR) Positive H (Negative) 08/10/21 Range/Units 19:21 WBC (4.5-11.0) X10^3/uL RBC (4.5-5.9) X10^6/uL Hgb (13.5-17.5) g/dL Hct (41-53) % MCV (80-100) fL MCH (26-34) PG MCHC (30-36) % RDW (11.6-14.8) % Plt Count (150-400) X10^3/uL Neut % (Auto) (50-75) % Lymph % (Auto) (25-40) % [place] % (Auto) (3-14) % Eos % (Auto) (2-4) % Baso % (Auto) (0-2) % Neut # (Auto) (1931-3256) /uL Lymph # (Auto) (6215-4038) /uL [place] # (Auto) (0-900) /uL Eos # (Auto) (0-450) /uL Baso # (Auto) (0-100) /uL Sodium (137-145) mmol/L Potassium (3.4-5.1) mmol/L Chloride (98-107) mmol/L Carbon Dioxide (22-32) mmol/L BUN (9-20) mg/dL Creatinine (0.66-1.25) mg/dL Estimated GFR (>60) mL/min BUN/Creatinine Ratio (6-22) Glucose (70-100) mg/dL Calcium (8.4-10.2) mg/dL Total Bilirubin (0.2-1.3) mg/dL AST (17-59) IU/L ALT (<50) IU/L Alkaline Phosphatase (38-126) U/L Troponin I 0.015 (0.01-0.034) ng/mL Total Protein (6.3-8.2) g/dL Albumin (3.5-5.0) g/dL Globulin (1.7-4.1) g/dL Albumin/Globulin Ratio (1.0-2.8) Lipase (23-300) U/L SARS-CoV-2 (PCR) (Negative) Imaging Data Chest x-ray: Radiologist's Impression: FINDINGS:? ? Surgical changes and devices:? None.? ? Lungs and pleura:? Lungs are clear.? No pleural effusions or pneumothorax.? ? Mediastinum:? Mediastinal contours are normal.? Heart size is normal.? ? Bones and chest wall:? No suspicious bony abnormalities.? Soft tissues appear unremarkable.? ? IMPRESSION:? No evidence acute pulmonary process. ? ? ? Dictated by: Tod Jose M.D. on 08/10/2021 at 19:45 ? ? ECG Data Interpretation: Sinus rhythm at a rate of 72 Prolonged QT, QTC is 492 No acute ischemic changes MDM Narrative Medical decision making narrative: 51-year-old gentleman with early controlled diabetes, hypertension hyperlipidemia now on day 3 of COVID symptoms. He is vaccinated with a single [employer] vaccine. He is not hypoxic main complaint is weakness and nausea. Nausea has been controlled in the emergency department was Zofran. Because of his multiple medications, paxlovid is not going to be an option for him. Because of his chronic medical issues monoclonal antibodies are indicated. Unfortunately is are not offered at [facility]. Have reviewed care br gail with [facility] Emergency Department. Plan is to discharge this gentleman from our emergency department. He will go to [facility] for monoclonal antibody infusion and they agree to help. Patient will be given a prescription for Zofran as needed and instructions to return to [facility] with any complications. He is safe for home discharge Discharge Plan Departure Patient Disposition: Home Clinical Impression: COVID, Nausea & vomiting, Diabetes Instructions: DI for Nausea -- Adult, DI for COVID-19 (Suspected or Confirmed ) Activity Restrictions/Additional Instructions: Thank you for coming in today You do have COVID. This is part of the reason you are so weak. Fortunately your vaccine is helping. Unfortunately, with your chronic medical problems your risk for having more problems with your COVID infection is relatively high. At this time, your oxygen level is very reassuring as is your blood work. For your nausea, I have given you a prescription for Zofran. A prescription was sent to [facility]. To reduce your risk of further complications from COVID, I am recommending an antibody infusion. Unfortunately we do not offer that at [facility]. They are able to do this infusion at [facility] Emergency Department. I have spoken with the emergency department this evening. I am going to discharge you from [facility]. Please go directly to [facility] emergency department where you will get the antibody infusion and be discharged home. If you have any worsening symptoms or additional complications please return to [facility] It was good to see you again Curtis and I hope you heal quickly! Prescriptions: New ondansetron 4 mg tablet,disintegrating 4 mg PO Q8H PRN (Reason: nausea and vomiting) Qty: 14 0RF No Action metformin 500 mg Tablet 850 mg PO BID Rx Instructions: states he takes 850 mg carvedilol 25 mg Tablet 25 mg PO 1300 amlodipine 10 mg Tablet 10 mg PO DAILY lisinopril 40 mg Tablet 40 mg PO DAILY chlorthalidone 25 mg tablet 25 mg PO DAILY Label Comments: take 1 tablet by mouth once daily levofloxacin 750 mg tablet 750 mg PO DAILY Qty: 10 0RF ciprofloxacin HCl 500 mg tablet 500 mg PO BID Qty: 20 0RF ondansetron HCl [Zofran] 4 mg tablet 4 mg PO Q6H PRN (Reason: nausea and vomiting) Qty: 10 0RF sulfamethoxazole-trimethoprim [Bactrim DS] 800-160 mg tablet 1 tab PO BID Qty: 20 0RF metoclopramide HCl [Reglan] 10 mg tablet 10 mg PO Q6H PRN (Reason: nausea and vomiting) Qty: 20 0RF ondansetron 4 mg tablet,disintegrating 4 mg PO TID-QID PRN (Reason: nausea and vomiting) Qty: 10 0RF ondansetron 4 mg tablet,disintegrating 4 mg PO TID-QID PRN (Reason: nausea and vomiting) Qty: 10 0RF (DME) pen needle, diabetic [Pen Needle] 31 gauge x 5/16 needle See Rx Instructions .ROUTE .MEDSUPPLY Qty: 60 0RF Rx Instructions: As directed Lantus Solostar U-100 Insulin 10 units SUBCUT BID Novolog PenFill U-100 Insulin 5 units SUBCUT TID Rx Instructions: Takes before each meals. ciprofloxacin HCl 500 mg tablet 500 mg PO BID Qty: 20 0RF furosemide [Lasix] 40 mg tablet 40 mg PO DAILY Qty: 3 0RF ondansetron 4 mg tablet,disintegrating 4 mg PO TID PRN (Reason: nausea and vomiting) Qty: 14 0RF Referrals: Toño Ovalles MD [Primary Care Provider] - Visit Report Forms: Patient Portal/API
[2021-08-10] MEDS: SODIUM CHLORIDE 0.9% 1,000 ML 1000 ML IV (20:03)
[2021-08-10 20:50] LABS: Troponin I 0.015 ng/mL (0.01-0.034)
[2021-08-10] MEDS: ONDANSETRON 4 MG ODT PREPACK 1 BOTTLE MISC (22:27)
[2021-08-10 22:28] VITALS: BP 159/89; PULSE 88; RESP 21; O2SAT 96
== END 2021-08-10 22:27 | disposition home or self-care (01) ==
PROVIDERS: Emergency Medicine; Emergency Provider Emergency Medicine; PCP Family Medicine
DX: U07.1 COVID-19 (principal); E11.9 Type 2 diabetes mellitus without complications
CPT/HCPCS: 36415; 71046; 80053; 83690; 84484; 85025; 87635; 93005; 93010; 96361; 96374; 99284; C9803; J2405

== ENCOUNTER 2021-08-17 13:06 | Emergency (ER) | payer OTHER, SELFPAY ==
[2021-08-17] VITALS (21 sets, daily range): BP systolic 136–201; BP diastolic 92–142; PULSE 86–111; RESP 18–23; TEMP 36; O2SAT 95–100; BMI 36.2
--- NOTE | 2021-08-17 15:58 | ED_ITS ---
HPI - URI/Sore Throat General Chief Complaint: Upper Respiratory Symptoms Stated Complaint: COVID+ since last week- not getting better Time Seen by Provider: 08/17/21 15:54 Source: patient Mode of arrival: Wheelchair History of Present Illness HPI Narrative: 51-year-old male former smoker with history of hypertension, chronic abdominal pain and vomiting and recent diagnosis of COVID presents with a chief complaint of persistent nausea and vomiting, fatigue and generalized weakness. He was seen and evaluated about 1 week ago and had a thorough evaluation and was diagnosed with COVID. He denies any body aches nor fever or chills and does not have much in the way of shortness of breath or difficulty breathing. He does have persistent nausea and vomiting which, as stated he is no stranger to. He is had poor oral intake but denies any other change in his diet or medications. Related Data Home Medications Medication Instructions Recorded Confirmed amlodipine 10 mg tablet 10 mg PO DAILY 03/14/18 09/18/20 carvedilol 25 mg tablet 25 mg PO 1300 03/14/18 09/18/20 lisinopril 40 mg tablet 40 mg PO DAILY 03/14/18 09/18/20 metformin 500 mg tablet 850 mg PO BID 03/14/18 09/30/19 chlorthalidone 25 mg tablet 25 mg PO DAILY 03/15/18 09/30/19 Lantus Solostar U-100 Insulin 10 units SUBCUT BID 09/30/19 09/30/19 Novolog PenFill U-100 Insulin 5 units SUBCUT TID 09/30/19 09/30/19 Previous Rx's Medication Instructions Recorded pen needle, diabetic 31 gauge x #60 ea 09/08/1906/20 (Pen Needle) levofloxacin 750 mg tablet 750 mg PO DAILY #10 tabs 02/03/20 ciprofloxacin HCl 500 mg tablet 500 mg PO BID #20 tabs 05/25/20 ondansetron HCl 4 mg tablet 4 mg PO Q6H PRN nausea and 05/25/20 (Zofran) vomiting #10 tabs sulfamethoxazole 800 1 tab PO BID #20 tabs 06/23/20 mg-trimethoprim 160 mg tablet (Bactrim DS) metoclopramide HCl 10 mg tablet 10 mg PO Q6H PRN nausea and 09/18/20 (Reglan) vomiting #20 tabs ciprofloxacin HCl 500 mg tablet 500 mg PO BID #20 tabs 12/22/20 furosemide 40 mg tablet (Lasix) 40 mg PO DAILY #3 tabs 06/08/21 ondansetron 4 mg disintegrating 4 mg PO TID PRN nausea and 06/10/21 tablet vomiting #14 tabs ondansetron 4 mg disintegrating 4 mg PO TID-QID PRN nausea and 06/18/21 tablet vomiting #10 tabs ondansetron 4 mg disintegrating 4 mg PO TID-QID PRN nausea and 06/28/21 tablet vomiting #10 tabs ondansetron 4 mg disintegrating 4 mg PO Q8H PRN nausea and 08/10/21 tablet vomiting #14 tabs Allergies Allergy/AdvReac Type Severity Reaction Status Date / Time No Known Drug Allergies Allergy Verified 08/17/21 13:14 Review of Systems Review of Systems Narrative: GENERAL: See HPI HEENT: Denies sinus pain, ear pain, sore throat, difficulty swallowing, dizziness. RESPIRATORY: Denies dyspnea, cough, wheezing, hemoptysis, sputum. CARDIOVASCULAR: Denies chest pain, palpitations, orthopnea, edema, GASTROINTESTINAL: See HPI : Denies dysuria, frequency, incontinence, hematuria, urinary retention. MUSCULOSKELETAL: denies weakness, joint pain, or bony pain SKIN: Denies rash, skin lesions, or other NEUROLOGIC: Denies weakness, headache, numbness, change in speech, confusion, seizures, incoordination. PSYCHIATRIC: No concerning psychosocial issues. 12 point review of systems is negative except for those stated above Patient History Medical History Congestive heart failure COVID Diabetes mellitus Hypertension Ulcer of left lower leg Ulcer of right leg Surgical History History of foot surgery Family History Father Myocardial infarction Mother Diabetes mellitus Brother Diabetes mellitus Social History household members: spouse and children Smoking Status: Former smoker alcohol intake: never Smoking Status: Former smoker tobacco type: cigarettes alcohol intake frequency: holidays/special occasions only Substance Use Type: marijuana Exam Narrative Exam Narrative: GENERAL: [51] year old patient appears stated age. Well-developed patient, in mild distress. HEAD: Atraumatic. Normocephalic. EYES: Moist mucous membranes Pupils equal round and reactive. Extraocular motions intact. No scleral icterus. No injection or drainage. ENT: Nose without bleeding, purulent drainage. Throat without erythema, tonsillar hypertrophy or exudate. Airway patent. NECK: Trachea midline. Non tender CARDIOVASCULAR: Regular rate and rhythm without murmurs, gallops, or rubs. RESPIRATORY: Clear to auscultation. Breath sounds equal bilaterally. No wheezes, rales, or rhonchi. GASTROINTESTINAL: Abdomen soft, non-tender, nondistended. EXTREMITIES: No edema or joint tenderness. BACK: Nontender without deformity or crepitance. No flank tenderness. NEURO: AOx3. SKIN: Good skin turgor No rash or erythema of visible areas Initial Vital Signs Initial Vital Signs: Vital Signs Temperature 96.8 F L 08/17/21 13:14 Pulse Rate 106 H 08/17/21 13:14 Respiratory Rate 23 08/17/21 13:14 Blood Pressure 196/125 H 08/17/21 13:14 Pulse Oximetry 100 08/17/21 13:14 Oxygen Delivery Method 08/17/21 13:14 Course Orders Ordered: ED Orders 08/17/21 14:58 Complete Blood Count AUTO DIFF Stat Comprehensive Metabolic Panel Stat Discontinued Medications Lactated Ringer's (Lactated Ringers) 1,000 mls @ 1,000 mls/hr IV BOLUS ONE Stop: 08/17/21 16:59 Last Admin: 08/17/21 16:18 Dose: 1,000 mls/hr Documented By: LETITIA Ondansetron HCl (Ondansetron 4 Mg/2 Ml Inj) 4 mg IV NOW ONE Stop: 08/17/21 16:01 Last Admin: 08/17/21 16:17 Dose: 4 mg Documented By: LETITIA Pantoprazole Sodium (Pantoprazole 40 Mg Vial) 40 mg IV NOW ONE Stop: 08/17/21 16:01 Last Admin: 08/17/21 16:17 Dose: 40 mg Documented By: LETITIA Vital Signs Vital signs: Vital Signs - 8 hr 08/17/21 13:14 08/17/21 15:38 08/17/21 15:48 Temperature 96.8 F L Pulse Rate 106 H 104 H Respiratory Rate 23 18 Blood Pressure 196/125 H 195/120 H 199/121 H Pulse Oximetry 100 99 Oxygen Delivery Method Room Air Room Air 08/17/21 15:48 08/17/21 16:00 08/17/21 16:02 Temperature Pulse Rate 109 H 98 H Respiratory Rate Blood Pressure 185/116 H Pulse Oximetry 99 99 Oxygen Delivery Method 08/17/21 16:02 08/17/21 16:15 08/17/21 16:15 Temperature Pulse Rate 97 H 92 H Respiratory Rate Blood Pressure 164/102 H Pulse Oximetry 99 96 Oxygen Delivery Method 08/17/21 16:30 08/17/21 16:30 08/17/21 16:45 Temperature Pulse Rate 87 92 H Respiratory Rate Blood Pressure 136/92 H Pulse Oximetry 95 96 Oxygen Delivery Method 08/17/21 16:45 08/17/21 17:00 08/17/21 17:00 Temperature Pulse Rate 87 Respiratory Rate Blood Pressure 162/101 H 158/101 H Pulse Oximetry 96 Oxygen Delivery Method 08/17/21 17:15 08/17/21 17:15 08/17/21 17:30 Temperature Pulse Rate 88 Respiratory Rate Blood Pressure 159/101 H 183/109 H Pulse Oximetry 97 Oxygen Delivery Method 08/17/21 17:30 08/17/21 17:45 08/17/21 17:45 Temperature Pulse Rate 86 91 H Respiratory Rate Blood Pressure 180/114 H Pulse Oximetry 95 98 Oxygen Delivery Method 08/17/21 18:00 08/17/21 18:01 08/17/21 18:01 Temperature Pulse Rate 104 H 111 H Respiratory Rate Blood Pressure 179/142 H Pulse Oximetry 96 99 Oxygen Delivery Method 08/17/21 18:04 08/17/21 18:05 08/17/21 18:05 Temperature Pulse Rate 98 H 96 H Respiratory Rate Blood Pressure 196/99 H Pulse Oximetry 97 98 Oxygen Delivery Method 08/17/21 18:06 08/17/21 18:06 08/17/21 18:15 Temperature Pulse Rate 94 H Respiratory Rate Blood Pressure 201/121 H 182/109 H Pulse Oximetry 98 Oxygen Delivery Method 08/17/21 18:15 08/17/21 18:30 08/17/21 18:30 Temperature Pulse Rate 87 86 Respiratory Rate Blood Pressure 190/114 H Pulse Oximetry 97 97 Oxygen Delivery Method 08/17/21 18:38 08/17/21 18:38 08/17/21 18:39 Temperature Pulse Rate 89 Respiratory Rate Blood Pressure 183/105 H 184/108 H Pulse Oximetry 96 Oxygen Delivery Method 08/17/21 18:39 Temperature Pulse Rate 88 Respiratory Rate Blood Pressure Pulse Oximetry 99 Oxygen Delivery Method MDM - URI/Sore Throat Lab Data Result diagrams: 08/17/21 14:58 08/17/21 14:58 Labs: Lab Results 08/17/21 08/17/21 Range/Units 14:58 14:58 WBC 9.9 (4.5-11.0) X10^3/uL RBC 5.26 (4.5-5.9) X10^6/uL Hgb 14.8 (13.5-17.5) g/dL Hct 43.7 (41-53) % MCV 83.0 (80-100) fL MCH 28.1 (26-34) PG MCHC 33.8 (30-36) % RDW 15.1 H (11.6-14.8) % Plt Count 282 (150-400) X10^3/uL Neut % (Auto) 65.9 (50-75) % Lymph % (Auto) 23.2 L (25-40) % Schuyler % (Auto) 9.6 (3-14) % Eos % (Auto) 0.8 L (2-4) % Baso % (Auto) 0.5 (0-2) % Neut # (Auto) 6600 (2978-9517) /uL Lymph # (Auto) 2300 (1763-1100) /uL Schuyler # (Auto) 900 (0-900) /uL Eos # (Auto) 100 (0-450) /uL Baso # (Auto) 0 (0-100) /uL Sodium 149 H (137-145) mmol/L Potassium 4.2 (3.4-5.1) mmol/L Chloride 106 (98-107) mmol/L Carbon Dioxide 31 (22-32) mmol/L BUN 41 H (9-20) mg/dL Creatinine 1.66 H (0.66-1.25) mg/dL Estimated GFR 50 L (>60) mL/min BUN/Creatinine Ratio 24.7 H (6-22) Glucose 156 H (70-100) mg/dL Calcium 9.5 (8.4-10.2) mg/dL Total Bilirubin 1.5 H (0.2-1.3) mg/dL AST 34 (17-59) IU/L ALT 28 (<50) IU/L Alkaline Phosphatase 54 (38-126) U/L Total Protein 9.8 H (6.3-8.2) g/dL Albumin 4.5 (3.5-5.0) g/dL Globulin 5.3 H (1.7-4.1) g/dL Albumin/Globulin Ratio 0.8 L (1.0-2.8) MDM Narrative Medical decision making narrative: Patient demonstrates no respiratory distress, has no hypoxemia or difficulty breathing whatsoever. He is chronically seen and evaluated for nausea and vomiting and was treated with the typical cocktail which works well. He is tolerated orals and has no pain. He is no signs of sepsis, symptoms are significantly improved. Return precautions discussed and questions answered to his apparent satisfaction Discharge Plan Departure Patient Disposition: Home Clinical Impression: Nausea and vomiting Instructions: Nausea and Vomiting-Adult, DI for COVID-19 (Suspected or Confirmed ) Activity Restrictions/Additional Instructions: *You have been diagnosed with [nausea and vomiting * As we discussed your history and physical exam as well as labs and imaging are very reassuring. There is no evidence of any severe diagnoses that would require a specific or immediate intervention. *What to do: *Please continue to take your regular medications as directed. *Please follow up with your primary care provider in 2-3 days, call for an appointment. Let them know you were seen in the Emergency Department and that we ask that you be seen in follow up. We will electronically transmit a record of today's note if your PCP is in our system *Please consider a clear liquid diet for the next 24-48 hours and then slowly advance to regular as tolerated. Also, try to avoid alcohol, nicotine, caffeine, spicy, acidic or fatty foods as this may worsen your symptoms *If you do not have a primary care provider please contact the [facility] Resource line at [phone]. They will ask some questions about your medical history and help get you set up with a doctor in the community. *Return to Emergency Department if you should have any new, worsening or concerning symptoms, such as [fever greater than 101 F, shaking chills, worsening pain, persistent vomiting or other bothersome symptoms] Prescriptions: No Action metformin 500 mg Tablet 850 mg PO BID Rx Instructions: states he takes 850 mg carvedilol 25 mg Tablet 25 mg PO 1300 amlodipine 10 mg Tablet 10 mg PO DAILY lisinopril 40 mg Tablet 40 mg PO DAILY chlorthalidone 25 mg tablet 25 mg PO DAILY Label Comments: take 1 tablet by mouth once daily levofloxacin 750 mg tablet 750 mg PO DAILY Qty: 10 0RF ciprofloxacin HCl 500 mg tablet 500 mg PO BID Qty: 20 0RF ondansetron HCl [Zofran] 4 mg tablet 4 mg PO Q6H PRN (Reason: nausea and vomiting) Qty: 10 0RF sulfamethoxazole-trimethoprim [Bactrim DS] 800-160 mg tablet 1 tab PO BID Qty: 20 0RF metoclopramide HCl [Reglan] 10 mg tablet 10 mg PO Q6H PRN (Reason: nausea and vomiting) Qty: 20 0RF ondansetron 4 mg tablet,disintegrating 4 mg PO TID-QID PRN (Reason: nausea and vomiting) Qty: 10 0RF ondansetron 4 mg tablet,disintegrating 4 mg PO TID-QID PRN (Reason: nausea and vomiting) Qty: 10 0RF (DME) pen needle, diabetic [Pen Needle] 31 gauge x 5/16 needle See Rx Instructions .ROUTE .MEDSUPPLY Qty: 60 0RF Rx Instructions: As directed Lantus Solostar U-100 Insulin 10 units SUBCUT BID Novolog PenFill U-100 Insulin 5 units SUBCUT TID Rx Instructions: Takes before each meals. ciprofloxacin HCl 500 mg tablet 500 mg PO BID Qty: 20 0RF furosemide [Lasix] 40 mg tablet 40 mg PO DAILY Qty: 3 0RF ondansetron 4 mg tablet,disintegrating 4 mg PO TID PRN (Reason: nausea and vomiting) Qty: 14 0RF ondansetron 4 mg tablet,disintegrating 4 mg PO Q8H PRN (Reason: nausea and vomiting) Qty: 14 0RF Referrals: Toño Ovalles MD [Primary Care Provider] -
[2021-08-17 16:09] LABS: Add Manual Diff / Slide Review NO; Basophils Absolute Auto 0 /uL (0-100); Basophils Percent Auto 0.5 % (0-2); Eosinophils Absolute Auto 100 /uL (0-450); Eosinophils Percent Auto 0.8 % (2-4); Hematocrit 43.7 % (41-53); Hemoglobin 14.8 g/dL (13.5-17.5); Lymphocytes Absolute Auto 2300 /uL (1100-4500); Lymphocytes Percent Auto 23.2 % (25-40); Mean Corpuscular HGB Conc 33.8 % (30-36); Mean Corpuscular Hemoglobin 28.1 PG (26-34); Monocytes Absolute Auto 900 /uL (0-900); Monocytes Percent Auto 9.6 % (3-14); Neutrophils Absolute Auto 6600 /uL (1500-7000); Neutrophils Percent Auto 65.9 % (50-75); Platelet Count 282 X10^3/uL (150-400); Red Blood Cell Count 5.26 X10^6/uL (4.5-5.9); Red Cell Distribution Width 15.1 % (11.6-14.8); White Blood Cell Count 9.9 X10^3/uL (4.5-11.0)
[2021-08-17] MEDS: ONDANSETRON 4 MG/2 ML INJ IV (16:17)
[2021-08-17] MEDS: PANTOPRAZOLE 40 MG VIAL IV (16:17)
[2021-08-17] MEDS: LACTATED RINGERS 1,000 ML 1000 ML IV (16:18)
[2021-08-17 16:29] LABS: Alanine Aminotransferase 28 IU/L (<50); Albumin 4.5 g/dL (3.5-5.0); Albumin Globulin Ratio 0.8 (1.0-2.8); Alkaline Phosphatase 54 U/L (38-126); Aspartate Aminotransferase 34 IU/L (17-59); BUN Creatinine Ratio 24.7 (6-22); Bilirubin Total 1.5 mg/dL (0.2-1.3); Blood Urea Nitrogen 41 mg/dL (9-20); Calcium 9.5 mg/dL (8.4-10.2); Carbon Dioxide 31 mmol/L (22-32); Chloride 106 mmol/L (98-107); Estimated Glomerular Filt Rate 50 mL/min (>60); Globulin 5.3 g/dL (1.7-4.1); Glucose 156 mg/dL (70-100); HEMOLYSIS < 15 (0-50); Potassium 4.2 mmol/L (3.4-5.1); Sodium 149 mmol/L (137-145); Total Protein 9.8 g/dL (6.3-8.2)
== END 2021-08-17 18:55 | disposition home or self-care (01) ==
PROVIDERS: Emergency Provider Emergency Medicine; PCP Family Medicine
DX: R11.2 Nausea with vomiting, unspecified (principal); U07.1 COVID-19
CPT/HCPCS: 36415; 80053; 85025; 96361; 96374; 96375; 99284; C9113; J2405

== ENCOUNTER 2022-02-03 08:55 | Emergency (ER) | payer OTHER, SELFPAY ==
[2022-02-03 09:17] VITALS: BP 170/80; PULSE 80; RESP 19; TEMP 36.4; O2SAT 99; BMI 36.2
--- NOTE | 2022-02-03 09:18 | ED_ITS ---
HPI - General Adult General Chief complaint: Nausea/Vomiting/Diarrhea Stated complaint: vomiting/fatigue x4 days Time Seen by Provider: 02/03/22 08:58 History of Present Illness HPI narrative: 51-year-old male former smoker with history of hypertension, IDDM, chronic abdominal pain and vomiting presents with a chief complaint 4 days or so of persistent vomiting. He is feeling a bit lightheaded, weak and fatigued. He denies any headache, blurred vision, runny nose, sore throat or cough. He has no chest pain or shortness of breath. He denies any diarrhea or urinary complaints. He has been seen frequent times under similar circumstances and states he thinks this is a similar scenario. He denies any change in his medications or dietary change. He denies exposure to other ill persons with similar symptoms. Related Data Home Medications Medication Instructions Recorded Confirmed amlodipine 10 mg tablet 10 mg PO DAILY 03/14/18 09/18/20 carvedilol 25 mg tablet 25 mg PO 1300 03/14/18 09/18/20 lisinopril 40 mg tablet 40 mg PO DAILY 03/14/18 09/18/20 metformin 500 mg tablet 850 mg PO BID 03/14/18 09/30/19 chlorthalidone 25 mg tablet 25 mg PO DAILY 03/15/18 09/30/19 Novolog PenFill U-100 Insulin 5 units SUBCUT TID 09/30/19 09/30/19 Previous Rx's Medication Instructions Recorded pen needle, diabetic 31 gauge x #60 ea 09/08/1906/20 (Pen Needle) Allergies Allergy/AdvReac Type Severity Reaction Status Date / Time No Known Drug Allergies Allergy Verified 02/03/22 09:23 Review of Systems Review of Systems Narrative: GENERAL: See HPI HEENT: Denies sinus pain, ear pain, sore throat, difficulty swallowing, dizziness. RESPIRATORY: Denies dyspnea, cough, wheezing, hemoptysis, sputum. CARDIOVASCULAR: Denies chest pain, palpitations, orthopnea, edema, GASTROINTESTINAL: See HPI : Denies dysuria, frequency, incontinence, hematuria, urinary retention. MUSCULOSKELETAL: denies weakness, joint pain, or bony pain SKIN: Denies rash, skin lesions, or other NEUROLOGIC: Denies weakness, headache, numbness, change in speech, confusion, seizures, incoordination. PSYCHIATRIC: No concerning psychosocial issues. 12 point review of systems is negative except for those stated above Patient History Medical History Congestive heart failure COVID Diabetes mellitus Hypertension Ulcer of left lower leg Ulcer of right leg Surgical History History of foot surgery Family History Father Myocardial infarction Mother Diabetes mellitus Brother Diabetes mellitus Social History household members: spouse and children Smoking Status: Former smoker alcohol intake: never Smoking Status: Former smoker tobacco type: cigarettes alcohol intake frequency: holidays/special occasions only Substance Use Type: marijuana Exam Narrative Exam Narrative: GENERAL: [51] year old patient appears stated age. Well-developed patient, in mild distress. HEAD: Atraumatic. Normocephalic. EYES: Pupils equal round and reactive. Extraocular motions intact. No scleral icterus. No injection or drainage. ENT: Nose without bleeding, purulent drainage. Throat without erythema, tons illar hypertrophy or exudate. Airway patent. NECK: Trachea midline. Non tender CARDIOVASCULAR: Regular rate and rhythm without murmurs, gallops, or rubs. RESPIRATORY: Clear to auscultation. Breath sounds equal bilaterally. No wheezes, rales, or rhonchi. GASTROINTESTINAL: Abdomen soft, non-tender, nondistended. EXTREMITIES: No edema or joint tenderness. BACK: Nontender without deformity or crepitance. No flank tenderness. NEURO: AOx3. SKIN: No rash or erythema of visible areas Initial Vital Signs Initial Vital Signs: Vital Signs Temperature 97.6 F 02/03/22 09:17 Pulse Rate 80 02/03/22 09:17 Respiratory Rate 19 02/03/22 09:17 Blood Pressure 170/80 H 02/03/22 09:17 Pulse Oximetry 99 02/03/22 09:17 Oxygen Delivery Method 02/03/22 09:17 Course Orders Ordered: Discontinued Medications Lactated Ringer's (Lactated Ringers) 1,000 mls @ 1,000 mls/hr IV BOLUS ONE Stop: 02/03/22 10:17 Last Infusion: 02/03/22 11:00 Dose: 0 mls/hr Documented By: Admin: 02/03/22 09:51 Dose: 1,000 mls/hr Documented By: MARISSA Ondansetron HCl (Ondansetron 4 Mg/2 Ml Inj) 4 mg IV NOW ONE Stop: 02/03/22 09:19 Last Admin: 02/03/22 09:51 Dose: 4 mg Documented By: MARISSA Vital Signs Vital signs: Vital Signs - 8 hr 02/03/22 09:17 Temperature 97.6 F Pulse Rate 80 Respiratory Rate 19 Blood Pressure 170/80 H Pulse Oximetry 99 Oxygen Delivery Method Room Air Medical Decision Making Lab Data Result diagrams: 02/03/22 09:45 02/03/22 09:45 Labs: Lab Results 02/03/22 02/03/22 02/03/22 Range/Units 09:35 09:45 09:45 WBC 8.1 (4.5-11.0) X10^3/uL RBC 5.19 (4.5-5.9) X10^6/uL Hgb 14.9 (13.5-17.5) g/dL Hct 43.8 (41-53) % MCV 84.3 (80-100) fL MCH 28.8 (26-34) PG MCHC 34.1 (30-36) % RDW 13.5 (11.6-14.8) % Plt Count 238 (150-400) X10^3/uL Neut % (Auto) 69.8 (50-75) % Lymph % (Auto) 22.8 L (25-40) % [place] % (Auto) 6.6 (3-14) % Eos % (Auto) 0.6 L (2-4) % Baso % (Auto) 0.2 (0-2) % Neut # (Auto) 5700 (8407-2055) /uL Lymph # (Auto) 1900 (8520-6681) /uL [place] # (Auto) 500 (0-900) /uL Eos # (Auto) 0 (0-450) /uL Baso # (Auto) 0 (0-100) /uL PT (10.1-12.7) SECONDS INR (0.9-1.3) VBG pH 7.45 H (7.33-7.43) VBG pCO2 42.0 L (45-50) mmHg VBG pO2 46 H (35-45) mmHg VBG HCO3 29 H (23-28) mmol/L VBG Total CO2 30 H (24-29) mmol/L VBG O2 Saturation 83 H (70-75) % VBG Base Excess 5.0 H (0-4) mmol/L Sodium 139 (137-145) mmol/L Potassium 3.7 (3.4-5.1) mmol/L Chloride 100 (98-107) mmol/L Carbon Dioxide 28 (22-32) mmol/L BUN 33 H (9-20) mg/dL Creatinine 1.08 (0.66-1.25) mg/dL Estimated GFR > 60 (>60) mL/min BUN/Creatinine Ratio 30.6 H (6-22) Glucose 198 H (70-100) mg/dL Lactate (0.7-2.1) mmol/L Calcium 8.8 (8.4-10.2) mg/dL Magnesium 1.7 (1.6-2.3) mg/dL Total Bilirubin 1.2 (0.2-1.3) mg/dL AST 48 (17-59) IU/L ALT 47 (<50) IU/L Alkaline Phosphatase 61 (38-126) U/L Total Creatine Kinase 648 H (55-170) U/L CK-MB (CK-2) 1.91 (<2.37) ng/mL CK-MB (CK-2) Rel Index 0.3 L (1.5-5.0) % Troponin I < 0.012 (0.01-0.034) ng/mL NT-Pro-B Natriuret Pep (<125) pg/mL Total Protein 8.7 H (6.3-8.2) g/dL Albumin 4.5 (3.5-5.0) g/dL Globulin 4.2 H (1.7-4.1) g/dL Albumin/Globulin Ratio 1.1 (1.0-2.8) Lipase 67 (23-300) U/L Ketones (<0.27) mmol/L SARS-CoV-2 (PCR) (Negative) Influenza A (RT-PCR) (NEGATIVE) Influenza B (RT-PCR) (NEGATIVE) RSV (PCR) (Negative) 12/30/22 12/30/22 12/30/22 Range/Units 09:45 09:45 09:45 WBC (4.5-11.0) X10^3/uL RBC (4.5-5.9) X10^6/uL Hgb (13.5-17.5) g/dL Hct (41-53) % MCV (80-100) fL MCH (26-34) PG MCHC (30-36) % RDW (11.6-14.8) % Plt Count (150-400) X10^3/uL Neut % (Auto) (50-75) % Lymph % (Auto) (25-40) % [place] % (Auto) (3-14) % Eos % (Auto) (2-4) % Baso % (Auto) (0-2) % Neut # (Auto) (3356-1234) /uL Lymph # (Auto) (0799-7986) /uL [place] # (Auto) (0-900) /uL Eos # (Auto) (0-450) /uL Baso # (Auto) (0-100) /uL PT 13.3 H (10.1-12.7) SECONDS INR 1.2 (0.9-1.3) VBG pH (7.33-7.43) VBG pCO2 (45-50) mmHg VBG pO2 (35-45) mmHg VBG HCO3 (23-28) mmol/L VBG Total CO2 (24-29) mmol/L VBG O2 Saturation (70-75) % VBG Base Excess (0-4) mmol/L Sodium (137-145) mmol/L Potassium (3.4-5.1) mmol/L Chloride (98-107) mmol/L Carbon Dioxide (22-32) mmol/L BUN (9-20) mg/dL Creatinine (0.66-1.25) mg/dL Estimated GFR (>60) mL/min BUN/Creatinine Ratio (6-22) Glucose (70-100) mg/dL Lactate 1.4 (0.7-2.1) mmol/L Calcium (8.4-10.2) mg/dL Magnesium (1.6-2.3) mg/dL Total Bilirubin (0.2-1.3) mg/dL AST (17-59) IU/L ALT (<50) IU/L Alkaline Phosphatase (38-126) U/L Total Creatine Kinase (55-170) U/L CK-MB (CK-2) (<2.37) ng/mL CK-MB (CK-2) Rel Index (1.5-5.0) % Troponin I (0.01-0.034) ng/mL NT-Pro-B Natriuret Pep 82 (<125) pg/mL Total Protein (6.3-8.2) g/dL Albumin (3.5-5.0) g/dL Globulin (1.7-4.1) g/dL Albumin/Globulin Ratio (1.0-2.8) Lipase (23-300) U/L Ketones (<0.27) mmol/L SARS-CoV-2 (PCR) (Negative) Influenza A (RT-PCR) (NEGATIVE) Influenza B (RT-PCR) (NEGATIVE) RSV (PCR) (Negative) 02/03/22 02/03/22 Range/Units 09:45 09:57 WBC (4.5-11.0) X10^3/uL RBC (4.5-5.9) X10^6/uL Hgb (13.5-17.5) g/dL Hct (41-53) % MCV (80-100) fL MCH (26-34) PG MCHC (30-36) % RDW (11.6-14.8) % Plt Count (150-400) X10^3/uL Neut % (Auto) (50-75) % Lymph % (Auto) (25-40) % [place] % (Auto) (3-14) % Eos % (Auto) (2-4) % Baso % (Auto) (0-2) % Neut # (Auto) (4212-6619) /uL Lymph # (Auto) (3766-0721) /uL [place] # (Auto) (0-900) /uL Eos # (Auto) (0-450) /uL Baso # (Auto) (0-100) /uL PT (10.1-12.7) SECONDS INR (0.9-1.3) VBG pH (7.33-7.43) VBG pCO2 (45-50) mmHg VBG pO2 (35-45) mmHg VBG HCO3 (23-28) mmol/L VBG Total CO2 (24-29) mmol/L VBG O2 Saturation (70-75) % VBG Base Excess (0-4) mmol/L Sodium (137-145) mmol/L Potassium (3.4-5.1) mmol/L Chloride (98-107) mmol/L Carbon Dioxide (22-32) mmol/L BUN (9-20) mg/dL Creatinine (0.66-1.25) mg/dL Estimated GFR (>60) mL/min BUN/Creatinine Ratio (6-22) Glucose (70-100) mg/dL Lactate (0.7-2.1) mmol/L Calcium (8.4-10.2) mg/dL Magnesium (1.6-2.3) mg/dL Total Bilirubin (0.2-1.3) mg/dL AST (17-59) IU/L ALT (<50) IU/L Alkaline Phosphatase (38-126) U/L Total Creatine Kinase (55-170) U/L CK-MB (CK-2) (<2.37) ng/mL CK-MB (CK-2) Rel Index (1.5-5.0) % Troponin I (0.01-0.034) ng/mL NT-Pro-B Natriuret Pep (<125) pg/mL Total Protein (6.3-8.2) g/dL Albumin (3.5-5.0) g/dL Globulin (1.7-4.1) g/dL Albumin/Globulin Ratio (1.0-2.8) Lipase (23-300) U/L Ketones 0.60 H (<0.27) mmol/L SARS-CoV-2 (PCR) Positive H (Negative) Influenza A (RT-PCR) Flu a negative (NEGATIVE) Influenza B (RT-PCR) Flu b negative (NEGATIVE) RSV (PCR) Negative (Negative) MDM Narrative Medical decision making narrative: [51-year-old male with history of hypertension, diabetes and cyclic vomiting presents with a few days of vomiting] Multiple etiologies for patient's symptoms considered including, but not limited to: [Cyclic vomiting, viral etiology, DKA versus other] Prior Charts reviewed: Including prior emergency department visits Labs reviewed and interpreted by myself: Slight elevation of white blood cell count thought to be an acute phase reactant, likely from his vomiting. VBG is reassuring and does not demonstrate evidence of diabetic emergency. He does have a slight bump in his creatinine which is consistent with dehydration. Patient's symptoms improved over duration of stay with above-stated therapies. Patient having no pain, tolerating orals Findings and discharge diagnosis discussed with patient/family followed by verb alization of understanding Return precautions discussed with patient/family whom verbalize understanding of diagnosis and plan Discharge Plan Departure Patient Disposition: Home Clinical Impression: Vomiting Instructions: DI for Vomiting -- Adult Activity Restrictions/Additional Instructions: *You have been diagnosed with [nausea and vomiting * As we discussed your history and physical exam as well as labs and imaging are very reassuring. There is no evidence of any severe diagnoses that would require a specific or immediate intervention. *What to do: *Please continue to take your regular medications as directed. *Please follow up with your primary care provider in 2-3 days, call for an appointment. Let them know you were seen in the Emergency Department and that we ask that you be seen in follow up. We will electronically transmit a record of today's note if your PCP is in our system *Please consider a clear liquid diet for the next 24-48 hours and then slowly advance to regular as tolerated. Also, try to avoid alcohol, nicotine, caffeine, spicy, acidic or fatty foods as this may worsen your symptoms *If you do not have a primary care provider please contact the [facility] Resource line at [phone]. They will ask some questions about your medical history and help get you set up with a doctor in the community. *Return to Emergency Department if you should have any new, worsening or concerning symptoms, such as [fever greater than 101 F, shaking chills, worsening pain, persistent vomiting or other bothersome symptoms] Prescriptions: No Action metformin 500 mg Tablet 850 mg PO BID Rx Instructions: states he takes 850 mg carvedilol 25 mg Tablet 25 mg PO 1300 amlodipine 10 mg Tablet 10 mg PO DAILY lisinopril 40 mg Tablet 40 mg PO DAILY chlorthalidone 25 mg tablet 25 mg PO DAILY Label Comments: take 1 tablet by mouth once daily (DME) pen needle, diabetic [Pen Needle] 31 gauge x 5/16 needle See Rx Instructions .ROUTE .MEDSUPPLY Qty: 60 0RF Rx Instructions: As directed Novolog PenFill U-100 Insulin 5 units SUBCUT TID Rx Instructions: Takes before each meals. Referrals: Toño Ovalles MD [Primary Care Provider] -
[2022-02-03] MEDS: LACTATED RINGERS 1,000 ML 1000 ML IV (09:51)
[2022-02-03] MEDS: ONDANSETRON 4 MG/2 ML INJ IV (09:51)
[2022-02-03 09:52] LABS: HCO3 VBG 29 mmol/L (23-28); PO2 VBG 46 mmHg (35-45); pH VBG 7.45 (7.33-7.43)
[2022-02-03 09:53] LABS: Oxygen Saturation VBG 83 % (70-75); Total CO2 VBG 30 mmol/L (24-29)
[2022-02-03 09:55] LABS: Add Manual Diff / Slide Review NO; Basophils Absolute Auto 0 /uL (0-100); Basophils Percent Auto 0.2 % (0-2); Eosinophils Absolute Auto 0 /uL (0-450); Eosinophils Percent Auto 0.6 % (2-4); Hematocrit 43.8 % (41-53); Hemoglobin 14.9 g/dL (13.5-17.5); Lymphocytes Absolute Auto 1900 /uL (1100-4500); Lymphocytes Percent Auto 22.8 % (25-40); Mean Corpuscular HGB Conc 34.1 % (30-36); Mean Corpuscular Hemoglobin 28.8 PG (26-34); Mean Corpuscular Volume 84.3 fL (80-100); Monocytes Absolute Auto 500 /uL (0-900); Monocytes Percent Auto 6.6 % (3-14); Neutrophils Absolute Auto 5700 /uL (1500-7000); Neutrophils Percent Auto 69.8 % (50-75); Platelet Count 238 X10^3/uL (150-400); Red Blood Cell Count 5.19 X10^6/uL (4.5-5.9); Red Cell Distribution Width 13.5 % (11.6-14.8); White Blood Cell Count 8.1 X10^3/uL (4.5-11.0)
[2022-02-03 10:05] LABS: INR 1.2 (0.9-1.3); Prothrombin Time 13.3 SECONDS (10.1-12.7)
[2022-02-03 10:13] LABS: Lactate (Lactic Acid) 1.4 mmol/L (0.7-2.1)
[2022-02-03 10:14] LABS: Alanine Aminotransferase 47 IU/L (<50); Albumin 4.5 g/dL (3.5-5.0); Albumin Globulin Ratio 1.1 (1.0-2.8); Alkaline Phosphatase 61 U/L (38-126); Aspartate Aminotransferase 48 IU/L (17-59); BUN Creatinine Ratio 30.6 (6-22); Bilirubin Total 1.2 mg/dL (0.2-1.3); Blood Urea Nitrogen 33 mg/dL (9-20); Calcium 8.8 mg/dL (8.4-10.2); Carbon Dioxide 28 mmol/L (22-32); Chloride 100 mmol/L (98-107); Creatine Kinase 648 U/L (55-170); Estimated Glomerular Filt Rate > 60 mL/min (>60); Globulin 4.2 g/dL (1.7-4.1); Glucose 198 mg/dL (70-100); HEMOLYSIS 16 (0-50); Lipase 67 U/L (23-300); Magnesium 1.7 mg/dL (1.6-2.3); Potassium 3.7 mmol/L (3.4-5.1); Sodium 139 mmol/L (137-145); Total Protein 8.7 g/dL (6.3-8.2)
[2022-02-03 10:24] LABS: NT-proBNP (BNP-Adult 18+) 82 pg/mL (<125)
[2022-02-03 10:26] LABS: Troponin I < 0.012 ng/mL (0.01-0.034)
[2022-02-03 10:30] LABS: CKMB % Relative Index 0.3 % (1.5-5.0); Creatine Kinase MB 1.91 ng/mL (<2.37)
[2022-02-03 10:52] LABS: Influenza A - CEPHEID Flu A NEGATIVE (NEGATIVE); Influenza B - CEPHEID Flu B NEGATIVE (NEGATIVE); Respiratory Syncytial Virus Negative (Negative)
[2022-02-03 10:53] LABS: COVID-19 CEPHEID 4-PLEX PCR POSITIVE (Negative)
[2022-02-03 13:27] VITALS: BP 186/100; PULSE 88; RESP 18; O2SAT 95
== END 2022-02-03 13:28 | disposition home or self-care (01) ==
PROVIDERS: Emergency Provider Emergency Medicine; PCP Family Medicine
DX: U07.1 COVID-19 (principal); R11.10 Vomiting, unspecified
CPT/HCPCS: 0241U; 36415; 80053; 82009; 82550; 82553; 82805; 83605; 83690; 83735; 83880; 84484; 85025; 85610; 96361; 96374; 99284; J2405

== ENCOUNTER 2022-02-05 21:44 | Emergency (ER) | payer OTHER, SELFPAY ==
[2022-02-05 21:52] VITALS: BP 141/101; PULSE 89; RESP 22; TEMP 36.3; O2SAT 100; BMI 36.2
--- NOTE | 2022-02-05 23:42 | ED_ITS ---
HPI - Nausea/Vomiting/Diarrhea General Chief complaint: Nausea/Vomiting/Diarrhea Stated complaint: diabetic/high sugar/not eating Time Seen by Provider: 02/05/22 23:42 Source: patient Mode of arrival: Ambulatory Limitations: no limitations History of Present Illness HPI Narrative: This is a 51-year-old male with complaint of nausea and vomiting since Sunday, he denies fevers he is felt shaky and chilled, he states his stomach been turning but denies any pain. He denies any back or flank pain. He states he pérez s been urinating but a lesser amount than normal and it has been dark yellow, he states was having bowel movements until , he states he is passing gas regularly. He states he gets these episodes frequently when his glucose is elevated and he often responds to fluids. States he has not been following his diet very well, he states he is taking his medications which include metformin, Humalog a long-acting insulin, carvedilol, amlodipine, lisinopril and denies any anticoagulants. He has had wounds on his lower extremities in the past but he states they are all healed. He states his only surgery was from an infected toe he did not have amputation but clean out about a year and a half ago. Patient denies tobacco, no alcohol, occasional THC but no IV or other illicit drugs. He denies any known drug allergies. Patient defers any COVID/RSV or influenza testing. Related Data Home Medications Medication Instructions Recorded Confirmed amlodipine 10 mg tablet 10 mg PO DAILY 03/14/18 09/18/20 carvedilol 25 mg tablet 25 mg PO 1300 03/14/18 09/18/20 lisinopril 40 mg tablet 40 mg PO DAILY 03/14/18 09/18/20 metformin 500 mg tablet 850 mg PO BID 03/14/18 09/30/19 chlorthalidone 25 mg tablet 25 mg PO DAILY 03/15/18 09/30/19 Novolog PenFill U-100 Insulin 5 units SUBCUT TID 09/30/19 09/30/19 Previous Rx's Medication Instructions Recorded pen needle, diabetic 31 gauge x #60 ea 09/08/1906/20 (Pen Needle) Allergies Allergy/AdvReac Type Severity Reaction Status Date / Time No Known Drug Allergies Allergy Verified 02/03/22 09:23 Review of Systems Review of Systems ROS Unobtainable: All systems reviewed & are unremarkable except as noted in HPI and below Patient History Medical History Congestive heart failure COVID Diabetes mellitus Hypertension Ulcer of left lower leg Ulcer of right leg Surgical History History of foot surgery Family History Father Myocardial infarction Mother Diabetes mellitus Brother Diabetes mellitus Social History household members: spouse and children Smoking Status: Former smoker alcohol intake: never Smoking Status: Former smoker tobacco type: cigarettes alcohol intake frequency: holidays/special occasions only Substance Use Type: marijuana Exam Narrative Exam Narrative: GENERAL: Alert and oriented x three, male in to moderate distress, patient states he feels chilled. HEENT: Head normocephalic, atraumatic, EOMI, pupils reactive, face symmetric, moist mucous membranes NECK: Supple, full range of motion CARDIOVASCULAR: Regular rate and rhythm without murmurs, rubs or gallops. No JVD. RESPIRATORY: Breath sounds equal bilaterally, no wheezes rales or rhonchi. No tachypnea or accessory muscle use. ABDOMEN: Soft, nontender. Nondistended. Normoactive bowel sounds all 4 quadrants. No guarding or rebound, rigidity, no mass : No CVA tenderness EXTREMITIES: Normal range of motion, no clubbing or edema. Neurovascularly intact. NEUROLOGICAL: Cranial nerves II through XII grossly intact. Moving all extremities SKIN: Warm, dry, no petechiae, no rashes or lesions. Initial Vital Signs Initial Vital Signs: Vital Signs Temperature 97.3 F L 02/05/22 21:52 Pulse Rate 89 02/05/22 21:52 Respiratory Rate 22 02/05/22 21:52 Blood Pressure 141/101 H 02/05/22 21:52 Pulse Oximetry 100 02/05/22 21:52 Oxygen Delivery Method 02/05/22 21:52 Course Orders Ordered: ED Orders 02/06/22 00:20 Complete Blood Count AUTO DIFF Stat Comprehensive Metabolic Panel Stat Ketones (Beta-Hydroxybutyrate) Stat Lipase Stat Troponin I Stat 02/06/22 00:47 XR acute abdomen series Stat 02/06/22 00:49 EKG-12 Lead Stat 02/06/22 02:39 US abdomen limited Stat 02/06/22 02:52 Urine Microscopic Stat Discontinued Medications Carvedilol (Carvedilol 12.5 Mg Tablet) 25 mg PO NOW ONE Stop: 02/06/22 02:58 Last Admin: 02/06/22 03:28 Dose: Not Given Documented By: REMEDIOS Sodium Chloride (Normal Saline 0.9%) 1,000 mls @ 1,000 mls/hr IV BOLUS ONE Stop: 02/06/22 01:46 Last Infusion: 02/06/22 02:37 Dose: 0 mls/hr Documented By: Admin: 02/06/22 01:24 Dose: 1,000 mls/hr Documented By: VANESA Sodium Chloride (Normal Saline 0.9%) 1,000 mls @ 1,000 mls/hr IV BOLUS ONE Stop: 02/06/22 03:38 Last Infusion: 02/06/22 04:40 Dose: 0 mls/hr Documented By: Admin: 02/06/22 03:14 Dose: 1,000 mls/hr Documented By: REMEDIOS Lisinopril (Lisinopril 20 Mg Tablet) 40 mg PO NOW ONE Stop: 02/06/22 02:58 Last Admin: 02/06/22 03:13 Dose: 40 mg Documented By: REMEDIOS Ondansetron HCl (Ondansetron 4 Mg/2 Ml Inj) 4 mg IV NOW ONE Stop: 02/06/22 00:48 Last Admin: 02/06/22 01:25 Dose: 4 mg Documented By: VANESA Reevaluation(s) Reevaluation #1: Patient states he is feeling better, his urine is dark, reviewed his labs that I would like to do an ultrasound of his abdomen. He states he does still have his gallbladder. Patient was initially reluctant but is more open to it after little discussion. Time: 02:41 Reevaluation #2: patient states he is feeling a little better, BP was quite elevated on recheck, slowly trending downwards but also given patients home lisinopril dose. Patient states he took his coreg earlier today. Patient is non-tender on repeat exam. Receiving second bag of fluids. Time: 03:29 Vital Signs Vital signs: Vital Signs - 8 hr 02/05/22 21:52 02/06/22 02:50 02/06/22 02:50 Temperature 97.3 F L Pulse Rate 89 74 Respiratory Rate 22 Blood Pressure 141/101 H 229/128 H Pulse Oximetry 100 99 Oxygen Delivery Method Room Air 02/06/22 02:53 02/06/22 02:53 02/06/22 03:00 Temperature Pulse Rate 80 72 Respiratory Rate 17 Blood Pressure 224/119 H Pulse Oximetry 98 98 Oxygen Delivery Method 02/06/22 03:01 02/06/22 03:01 02/06/22 04:57 Temperature 97.4 F L Pulse Rate 72 74 Respiratory Rate 17 18 Blood Pressure 199/117 H 220/116 H Pulse Oximetry 99 98 Oxygen Delivery Method Room Air Room Air MDM - Nausea/Vomiting/Diarrhea Lab Data Result diagrams: 02/06/22 00:20 02/06/22 00:20 Labs: Lab Results 02/06/22 02/06/22 02/06/22 Range/Units 00:20 00:20 00:20 WBC 11.4 H (4.5-11.0) X10^3/uL RBC 5.73 (4.5-5.9) X10^6/uL Hgb 16.2 (13.5-17.5) g/dL Hct 48.5 (41-53) % MCV 84.6 (80-100) fL MCH 28.2 (26-34) PG MCHC 33.3 (30-36) % RDW 13.6 (11.6-14.8) % Plt Count 312 (150-400) X10^3/uL Neut % (Auto) 70.5 (50-75) % Lymph % (Auto) 20.9 L (25-40) % [facility] % (Auto) 7.8 (3-14) % Eos % (Auto) 0.4 L (2-4) % Baso % (Auto) 0.4 (0-2) % Neut # (Auto) 8100 H (0078-7125) /uL Lymph # (Auto) 2400 (3500-1014) /uL [facility] # (Auto) 900 (0-900) /uL Eos # (Auto) 0 (0-450) /uL Baso # (Auto) 0 (0-100) /uL Sodium 139 (137-145) mmol/L Potassium 4.3 (3.4-5.1) mmol/L Chloride 98 (98-107) mmol/L Carbon Dioxide 29 (22-32) mmol/L BUN 29 H (9-20) mg/dL Creatinine 1.37 H (0.66-1.25) mg/dL Estimated GFR > 60 (>60) mL/min BUN/Creatinine Ratio 21.2 (6-22) Glucose 201 H (70-100) mg/dL Calcium 9.5 (8.4-10.2) mg/dL Total Bilirubin 1.6 H (0.2-1.3) mg/dL AST 40 (17-59) IU/L ALT 50 H (<50) IU/L Alkaline Phosphatase 60 (38-126) U/L Troponin I < 0.012 (0.01-0.034) ng/mL Total Protein 9.3 H (6.3-8.2) g/dL Albumin 4.7 (3.5-5.0) g/dL Globulin 4.6 H (1.7-4.1) g/dL Albumin/Globulin Ratio 1.0 (1.0-2.8) Lipase 166 D (23-300) U/L Urine RBC (0-5/HPF) Urine WBC (0-5/HPF) Urine Bacteria (None) Hyaline Casts (None) Ur Culture Indicated? Ketones 0.17 (<0.27) mmol/L 02/06/22 Range/Units 02:52 WBC (4.5-11.0) X10^3/uL RBC (4.5-5.9) X10^6/uL Hgb (13.5-17.5) g/dL Hct (41-53) % MCV (80-100) fL MCH (26-34) PG MCHC (30-36) % RDW (11.6-14.8) % Plt Count (150-400) X10^3/uL Neut % (Auto) (50-75) % Lymph % (Auto) (25-40) % [facility] [place] [facility] % (Auto) (3-14) % Eos % (Auto) (2-4) % Baso % (Auto) (0-2) % Neut # (Auto) (1354-8798) /uL Lymph # (Auto) (2745-2530) /uL [facility] [place] [facility] # (Auto) (0-900) /uL Eos # (Auto) (0-450) /uL Baso # (Auto) (0-100) /uL Sodium (137-145) mmol/L Potassium (3.4-5.1) mmol/L Chloride (98-107) mmol/L Carbon Dioxide (22-32) mmol/L BUN (9-20) mg/dL Creatinine (0.66-1.25) mg/dL Estimated GFR (>60) mL/min BUN/Creatinine Ratio (6-22) Glucose (70-100) mg/dL Calcium (8.4-10.2) mg/dL Total Bilirubin (0.2-1.3) mg/dL AST (17-59) IU/L ALT (<50) IU/L Alkaline Phosphatase (38-126) U/L Troponin I (0.01-0.034) ng/mL Total Protein (6.3-8.2) g/dL Albumin (3.5-5.0) g/dL Globulin (1.7-4.1) g/dL Albumin/Globulin Ratio (1.0-2.8) Lipase (23-300) U/L Urine RBC 1-5/hpf (0-5/HPF) Urine WBC 0-1/hpf (0-5/HPF) Urine Bacteria None seen (None) Hyaline Casts 1-5/lpf (None) Ur Culture Indicated? Cult not indicated Ketones (<0.27) mmol/L Point of Care Testing Glucose POC 187 Urine Dip Bedside Urine Glucose Negative Bedside Urine Bilirubin - Negative Bedside Urine Ketone +/- 5 Urine Specific [place] 1.025 Bedside Urine Occult Blood + Bedside Urine pH 6.0 Bedside Urine Protein ++ 100 Bedside Urine Urobilinogen +/- 1mg Bedside Urine Nitrite - Negative Bedside Urine Leukocytes - Negative Esterase Imaging Data Abdominal x-ray: Radiologist's Impression: [address] [address] XRay Report Signed Patient: Curtis Mari MR#: [id number] : 1970 Acct:[id number] Age/Sex: 51 / M Date of Service: 02/06/22 Loc: ED Accession Number: [id number] ?? Procedure: XR acute abdomen series Ordering Provider: Mank,Bhavna C D.O. PROCEDURE:? XR ACUTE ABDOMEN SERIES ? INDICATIONS:? n/v/d ? TECHNIQUE:? One view chest and two views of the abdomen were acquired.? ? COMPARISON:? [facility], CR, XR ACUTE ABDOMEN SERIES, 06/18/2021, 1:08. ? FINDINGS:? ? Surgical changes and devices:? None.? ? Chest:? Lungs are clear.? Heart size is normal.? No pleural effusions.? No pneumoperitoneum.? ? Abdomen:? Bowel gas pattern is normal.? No suspicious calcifications.? Visualized solid organ contours appear normal.? ? Bones:? No suspicious bony lesions.? Age-appropriate bony degenerative changes are seen.? IMPRESSION:? ? No acute plain film abnormality can be seen. ? Nonobstructive bowel gas pattern. ? ? Dictated by: Carlos Eduardo Barr M.D. on 02/06/2022 at 0:16 ? ? Approved by: Carlos Eduardo Barr M.D. on 02/06/2022 at 0:16?? US - abdomen: Radiologist's Impression: prelim-negative. ECG Data Attestation: I personally reviewed and interpreted this ECG as follows: Prior ECG tracings: available for review Interpretation: Sinus rhythm rate of 70 ME 176 QRS of 114 and QTC of 470. No acute ST changes appreciated. Patient has some motion artifact in V3. Patient has prior from 08/10/2021 no acute changes. [facility] Narrative Medical decision making narrative: Patient presents with complaint of elevated sugars he is 187 for us today, chills, nausea and vomiting for several days he states he has not been following his diet and has had high sugars at home he states that he is feels similar to when he is hyperglycemic. Acute abdominal series shows no acute changes to the chest, no obstructive bowel gas pattern. Patient had CBC, CMP, lipase, ketones, troponin obtained. EKG appears similar to prior from August of 2021 with no acute or dynamic changes. Patient's count is 11.4, he has low lymphocytes, 8100 neut rophils, CMP shows creatinine 1.37 patient appears to fairly close to his baseline which looks like he runs about 1.2 wish least since June he has been as high as 1.6 in his low as 1.08, T BUN is 29, glucose is 201 on serum checked, bilirubin 1.6 with an A ALT of 50, normal AST, alk phos is normal with a negative lipase. Patient's troponin is negative. Patient has had elevated bilirubins but can be 0.8-1.5 in August 2021. urine shows ketone, specific gravity is 1.025, positive for blood and protein. Patient micro does not show signs of infection. Read upper quadrant abdominal ultrasound is negative preliminarily. Patient's blood pressure continued to elevate in the department, patient took his home lisinopril, he states that he had his Coreg earlier at 9:00 p.m.. Patient has not had persistent vomiting he is feeling much better. His blood pressure continues to be quite high with a systolic 220 and diastolic 116 but patient would like to leave. We discussed risks versus benefits that he can have strokes, aneurysms, heart attacks if his blood pressure is persistently elevated and I would like to bring it down a little bit more to a semi normal range and give additional medicaiton. He expresses his understanding. Patient very politely refuses and elects to discharge home. Discharge Plan Departure Patient Disposition: Home Clinical Impression: Nausea and vomiting, Hypertensive urgency Instructions: DI for Vomiting -- Adult Activity Restrictions/Additional Instructions: Your blood pressure is very high, I would recommend it be lower before you leave the emergency room. Blood pressure that is persistently elevated in the 200/100+ range can cause strokes, heart attacks and . Please take your blood pressure medicine when you get home. Follow up for recheck with your physician at the [facility]. Please continue your home medications as prescribed. You can take antinausea medicine 1 tablet every 6 hours as needed for nausea Please return for new or worsening shortness of breath, chest pain, abdominal pain, severe headaches, persistent vomiting, passing out, black or bloody stools, Prescriptions: No Action metformin 500 mg Tablet 850 mg PO BID Rx Instructions: states he takes 850 mg carvedilol 25 mg Tablet 25 mg PO 1300 amlodipine 10 mg Tablet 10 mg PO DAILY lisinopril 40 mg Tablet 40 mg PO DAILY chlorthalidone 25 mg tablet 25 mg PO DAILY Label Comments: take 1 tablet by mouth once daily (DME) pen needle, diabetic [Pen Needle] 31 gauge x 5/16 needle See Rx Instructions .ROUTE .MEDSUPPLY Qty: 60 0RF Rx Instructions: As directed Novolog PenFill U-100 Insulin 5 units SUBCUT TID Rx Instructions: Takes before each meals. Referrals: Toño Ovlales MD [Primary Care Provider] -
--- NOTE | 2022-02-06 00:47 | DI.RAD.S_ITS ---
PROCEDURE: XR ACUTE ABDOMEN SERIES INDICATIONS: n/v/d TECHNIQUE: One view chest and two views of the abdomen were acquired. COMPARISON: [facility], CR, XR ACUTE ABDOMEN SERIES, 06/18/2021, 1:08. FINDINGS: Surgical changes and devices: None. Chest: Lungs are clear. Heart size is normal. No pleural effusions. No pneumoperitoneum. Abdomen: Bowel gas pattern is normal. No suspicious calcifications. Visualized solid organ contours appear normal. Bones: No suspicious bony lesions. Age-appropriate bony degenerative changes are seen. IMPRESSION: No acute plain film abnormality can be seen. Nonobstructive bowel gas pattern. Dictated by: Carlos Eduardo Barr M.D. on 02/06/2022 at 0:16 Approved by: Carlos Eduardo Barr M.D. on 02/06/2022 at 0:16
[2022-02-06] MEDS: SODIUM CHLORIDE 0.9% 1,000 ML 1000 ML IV ×2 (01:24→03:14)
[2022-02-06] MEDS: ONDANSETRON 4 MG/2 ML INJ IV (01:25)
[2022-02-06 01:35] LABS: Add Manual Diff / Slide Review NO; Basophils Absolute Auto 0 /uL (0-100); Basophils Percent Auto 0.4 % (0-2); Eosinophils Absolute Auto 0 /uL (0-450); Eosinophils Percent Auto 0.4 % (2-4); Hematocrit 48.5 % (41-53); Hemoglobin 16.2 g/dL (13.5-17.5); Lymphocytes Absolute Auto 2400 /uL (1100-4500); Lymphocytes Percent Auto 20.9 % (25-40); Mean Corpuscular HGB Conc 33.3 % (30-36); Mean Corpuscular Hemoglobin 28.2 PG (26-34); Mean Corpuscular Volume 84.6 fL (80-100); Monocytes Absolute Auto 900 /uL (0-900); Monocytes Percent Auto 7.8 % (3-14); Neutrophils Absolute Auto 8100 /uL (1500-7000); Neutrophils Percent Auto 70.5 % (50-75); Platelet Count 312 X10^3/uL (150-400); Red Blood Cell Count 5.73 X10^6/uL (4.5-5.9); Red Cell Distribution Width 13.6 % (11.6-14.8); White Blood Cell Count 11.4 X10^3/uL (4.5-11.0)
[2022-02-06 01:38] LABS: Alanine Aminotransferase 50 IU/L (<50); Albumin 4.7 g/dL (3.5-5.0); Alkaline Phosphatase 60 U/L (38-126); Aspartate Aminotransferase 40 IU/L (17-59); BUN Creatinine Ratio 21.2 (6-22); Bilirubin Total 1.6 mg/dL (0.2-1.3); Blood Urea Nitrogen 29 mg/dL (9-20); Calcium 9.5 mg/dL (8.4-10.2); Carbon Dioxide 29 mmol/L (22-32); Chloride 98 mmol/L (98-107); Estimated Glomerular Filt Rate > 60 mL/min (>60); Globulin 4.6 g/dL (1.7-4.1); Glucose 201 mg/dL (70-100); HEMOLYSIS 24 (0-50); Lipase 166 U/L (23-300); Potassium 4.3 mmol/L (3.4-5.1); Sodium 139 mmol/L (137-145); Total Protein 9.3 g/dL (6.3-8.2)
[2022-02-06 01:49] LABS: Troponin I < 0.012 ng/mL (0.01-0.034)
[2022-02-06 01:54] LABS: Ketones (Beta-Hydroxybutyrate) 0.17 mmol/L (<0.27)
--- NOTE | 2022-02-06 02:39 | DI.US.S_ITS ---
PROCEDURE: US ABDOMEN LIMITED INDICATIONS: n/v, elevated bili TECHNIQUE: Real-time focused scanning was performed of the abdomen, with image documentation. COMPARISON: None. FINDINGS: The gallbladder is mildly distended with no gallbladder wall thickening or pericholecystic fluid. No gallstone or sludge identified. Increased hepatic parenchymal echogenicity. No definite hepatic mass, although steatosis and body habitus limit evaluation. No intrahepatic or extrahepatic biliary ductal dilatation. IMPRESSION: Mild gallbladder distention could be due to of fasted state. No findings of cholecystitis. Hepatic steatosis. No significant change from preliminary report. Dictated by: Rudy Carolina M.D. on 02/06/2022 at 9:06 Approved by: Rudy Carolina M.D. on 02/06/2022 at 9:08
[2022-02-06 02:50] VITALS: BP 229/128; PULSE 74; O2SAT 99
[2022-02-06 02:53] VITALS: BP 224/119; PULSE 80; O2SAT 98
[2022-02-06 03:00] VITALS: PULSE 72; RESP 17; O2SAT 98
[2022-02-06 03:01] VITALS: BP 199/117; PULSE 72; RESP 17; O2SAT 99
[2022-02-06] MEDS: lisinopriL 20 MG TABLET 40 MG PO (03:13)
[2022-02-06 03:15] LABS: RBC Urine 1-5/HPF (0-5/HPF); WBC Urine 0-1/HPF (0-5/HPF)
[2022-02-06 03:16] LABS: Bacteria Urine None Seen; Culture Indicated Urine Cult Not Indicated; Hyaline Casts Urine 1-5/LPF
[2022-02-06 04:57] VITALS: BP 220/116; PULSE 74; RESP 18; TEMP 36.3; O2SAT 98
== END 2022-02-06 04:40 | disposition home or self-care (01) ==
PROVIDERS: Emergency Provider Emergency Medicine; PCP Family Medicine
DX: R11.2 Nausea with vomiting, unspecified (principal); I16.0 Hypertensive urgency; R19.7 Diarrhea, unspecified; Z79.899 Other long term (current) drug therapy
CPT/HCPCS: 36415; 74022; 76705; 80053; 81003; 81015; 82009; 82962; 83690; 84484; 85025; 93005; 93010; 96361; 96374; 99284; J2405

== ENCOUNTER 2022-03-11 01:47 | Emergency (ER) | payer OTHER, SELFPAY ==
[2022-03-11] VITALS (25 sets, daily range): BP systolic 176–251; BP diastolic 99–134; PULSE 86–108; RESP 12–21; TEMP 36.9; O2SAT 93–99; BMI 36.2
[2022-03-11] MEDS: ONDANSETRON 4 MG ODT SL (02:45)
--- NOTE | 2022-03-11 03:23 | ED.NAVMDI ---
HPI - Nausea/Vomiting/Diarrhea <Hue Tong MD - Last Filed: 03/12/22 00:27> General Chief complaint: Nausea/Vomiting/Diarrhea Stated complaint: vomiting, fatigue, diabetic issues Time Seen by Provider: 03/11/22 03:22 Source: patient Mode of arrival: Ambulatory History of Present Illness HPI Narrative: 51-year-old gentleman with a history of diabetes with multiple complications, poorly controlled hypertension on multiple medications, diabetic foot ulcers going to wound care and finally healing with a small wound only on the left lateral aspect of his left foot comes in with 3 days of nausea vomiting general malaise. He denies chest pain, palpitations, diarrhea. He states he has been voiding less because he has not been able to keep any liquids doWn for the last 3 days. Also has not been able to take and we his blood pressure medications for the last 3 days. He notes that his sugars have been in the 300 range. States that he has not had any fevers but generally feels exceptionally poor. of note patient did test positive for COVID on February 03. Related Data Home Medications Medication Instructions Recorded Confirmed amlodipine 10 mg tablet 10 mg PO DAILY 03/14/18 09/18/20 carvedilol 25 mg tablet 25 mg PO 1300 03/14/18 09/18/20 lisinopril 40 mg tablet 40 mg PO DAILY 03/14/18 09/18/20 metformin 500 mg tablet 850 mg PO BID 03/14/18 09/30/19 chlorthalidone 25 mg tablet 25 mg PO DAILY 03/15/18 09/30/19 Novolog PenFill U-100 Insulin 5 units SUBCUT TID 09/30/19 09/30/19 Previous Rx's Medication Instructions Recorded pen needle, diabetic 31 gauge x #60 ea 09/08/1906/20 (Pen Needle) ondansetron 4 mg disintegrating 4 mg PO Q6H PRN nausea and 03/11/22 tablet vomiting #14 tabs Allergies Allergy/AdvReac Type Severity Reaction Status Date / Time No Known Drug Allergies Allergy Verified 02/03/22 09:23 Review of Systems <Hue Tong MD - Last Filed: 03/12/22 00:27> Review of Systems Narrative: Remainder of complete review of systems is otherwise unremarkable except for that included in the HPI. Patient History <Hue Tong MD - Last Filed: 03/12/22 00:27> Medical History Congestive heart failure COVID Diabetes mellitus Hypertension Ulcer of left lower leg Ulcer of right leg Surgical History History of foot surgery Family History Father Myocardial infarction Mother Diabetes mellitus Brother Diabetes mellitus Social History household members: spouse and children Smoking Status: Former smoker alcohol intake: never Smoking Status: Former smoker tobacco type: cigarettes alcohol intake frequency: holidays/special occasions only Substance Use Type: marijuana Exam <Hue Tong MD - Last Filed: 03/12/22 00:27> Initial Vital Signs Initial Vital Signs: Vital Signs Temperature 98.4 F 03/11/22 02:09 Pulse Rate 102 H 03/11/22 02:09 Respiratory Rate 16 03/11/22 02:09 Blood Pressure 216/125 H 03/11/22 02:09 Pulse Oximetry 99 03/11/22 02:09 Oxygen Delivery Method 03/11/22 02:09 General: Chronically ill-appearing and acutely ill today with dry mucous membranes. Weak enough that answering questions is becoming more difficult but he is attempting to cooperate HEENT: Very dry mucous membranes, normal sclera with reactive pupils, Neck: No JVD, supple Respiratory: Lungs are clear to auscultation, no wheezing no rales no rhonchi. Full and symmetrical air movement Cardiac: Tachycardic without murmurs Abdomen: Soft, nontender, good bowel tones, no rebound or guarding no flank pain Skin: Pale but otherwise Warm and dry, no rashes Neurologic: Globally weak Grossly neurologically intact with no obvious asymmetries or abnormalities Extremities: Wound care dressings on both lower extremities no signs of cellulitis wounds are healing Psych: Fatigued but Cooperative, appropriate insight and affect <Xavier Escobedo DO - Last Filed: 03/11/22 09:28> Initial Vital Signs Initial Vital Signs: Vital Signs Temperature 98.4 F 03/11/22 02:09 Pulse Rate 102 H 03/11/22 02:09 Respiratory Rate 16 03/11/22 02:09 Blood Pressure 216/125 H 03/11/22 02:09 Pulse Oximetry 99 03/11/22 02:09 Oxygen Delivery Method 03/11/22 02:09 Course <Hue Tong MD - Last Filed: 03/12/22 00:27> Orders Ordered: Discontinued Medications Amlodipine Besylate (Amlodipine 5 Mg Tablet) 10 mg PO NOW ONE Stop: 03/11/22 03:52 Last Admin: 03/11/22 06:07 Dose: 5 mg Documented By: RAMON Amlodipine Besylate (Amlodipine 5 Mg Tablet) 5 mg PO NOW ONE Stop: 03/11/22 08:48 Last Admin: 03/11/22 08:50 Dose: 5 mg Documented By: DHARA Carvedilol (Carvedilol 12.5 Mg Tablet) 25 mg PO NOW ONE Stop: 03/11/22 03:52 Last Admin: 03/11/22 06:07 Dose: 12.5 mg Documented By: RAMON Carvedilol (Carvedilol 12.5 Mg Tablet) 12.5 mg PO NOW ONE Stop: 03/11/22 08:49 Last Admin: 03/11/22 08:50 Dose: 12.5 mg Documented By: DHARA Sodium Chloride (Normal Saline 0.9%) 1,000 mls @ 1,000 mls/hr IV BOLUS ONE Stop: 03/11/22 04:50 Last Infusion: 03/11/22 05:18 Dose: 0 mls/hr Documented By: Admin: 03/11/22 04:30 Dose: 1,000 mls/hr Documented By: VANESA Sodium Chloride (Normal Saline 0.9%) 500 mls @ 1,000 mls/hr IV BOLUS ONE Stop: 03/11/22 06:55 Last Infusion: 03/11/22 08:45 Dose: 0 mls/hr Documented By: Admin: 03/11/22 07:47 Dose: 1,000 mls/hr Documented By: DHARA Lisinopril (Lisinopril 20 Mg Tablet) 40 mg PO NOW ONE Stop: 03/11/22 03:52 Last Admin: 03/11/22 06:06 Dose: 20 mg Documented By: RAMON Lisinopril (Lisinopril 20 Mg Tablet) 20 mg PO NOW ONE Stop: 03/11/22 08:49 Last Admin: 03/11/22 08:50 Dose: 20 mg Documented By: DHARA Metoclopramide HCl (Metoclopramide 10 Mg/2 Ml Inj) 10 mg IV NOW ONE Stop: 03/11/22 06:27 Last Admin: 03/11/22 07:47 Dose: 10 mg Documented By: DHARA Ondansetron HCl (Ondansetron 4 Mg/2 Ml Inj) 4 mg IV NOW PRN PRN Reason: Nausea And Vomiting Ondansetron HCl (Ondansetron 4 Mg Odt) 4 mg SL NOW PRN PRN Reason: Nausea And Vomiting Last Admin: 03/11/22 02:45 Dose: 4 mg Documented By: VANESA Ondansetron HCl (Ondansetron 4 Mg/2 Ml Inj) 4 mg IV NOW ONE Stop: 03/11/22 03:52 Last Admin: 03/11/22 04:37 Dose: 4 mg Documented By: VANESA Vital Signs Vital signs: Vital Signs - 8 hr 03/11/22 02:09 03/11/22 06:06 03/11/22 02:31 Temperature 98.4 F Pulse Rate 102 H 102 H Respiratory Rate 16 19 Blood Pressure 216/125 H 232/133 H Pulse Oximetry 99 96 Oxygen Delivery Method Room Air 03/11/22 03:00 03/11/22 03:00 03/11/22 03:30 Temperature Pulse Rate 95 H Respiratory Rate Blood Pressure 207/111 H 220/113 H Pulse Oximetry 96 Oxygen Delivery Method 03/11/22 03:30 03/11/22 04:00 03/11/22 04:00 Temperature Pulse Rate 96 H 108 H Respiratory Rate Blood Pressure 251/134 H Pulse Oximetry 96 98 Oxygen Delivery Method 03/11/22 04:30 03/11/22 04:30 03/11/22 05:00 Temperature Pulse Rate 89 95 H Respiratory Rate Blood Pressure 206/110 H Pulse Oximetry 95 93 Oxygen Delivery Method 03/11/22 05:01 03/11/22 05:01 03/11/22 05:18 Temperature Pulse Rate 94 H Respiratory Rate Blood Pressure 247/125 H 232/125 H Pulse Oximetry 96 Oxygen Delivery Method 03/11/22 05:18 03/11/22 05:30 03/11/22 05:30 Temperature Pulse Rate 101 H 102 H Respiratory Rate Blood Pressure 232/133 H Pulse Oximetry 96 95 Oxygen Delivery Method 03/11/22 06:00 03/11/22 06:30 03/11/22 07:00 Temperature Pulse Rate 98 H 96 H 93 H Respiratory Rate Blood Pressure Pulse Oximetry 94 94 94 Oxygen Delivery Method 03/11/22 07:30 03/11/22 07:43 03/11/22 07:43 Temperature Pulse Rate 96 H Respiratory Rate Blood Pressure 205/119 H Pulse Oximetry 97 96 Oxygen Delivery Method 03/11/22 08:50 03/11/22 08:50 03/11/22 08:52 Temperature Pulse Rate 90 91 H 88 Respiratory Rate 18 Blood Pressure 176/99 H 176/99 H 199/111 H Pulse Oximetry 94 Oxygen Delivery Method Room Air <Xavier Escobedo DO - Last Filed: 03/11/22 09:28> Orders Ordered: Discontinued Medications Amlodipine Besylate (Amlodipine 5 Mg Tablet) 10 mg PO NOW ONE Stop: 03/11/22 03:52 Last Admin: 03/11/22 06:07 Dose: 5 mg Documented By: RAMON Amlodipine Besylate (Amlodipine 5 Mg Tablet) 5 mg PO NOW ONE Stop: 03/11/22 08:48 Last Admin: 03/11/22 08:50 Dose: 5 mg Documented By: DHARA Carvedilol (Carvedilol 12.5 Mg Tablet) 25 mg PO NOW ONE Stop: 03/11/22 03:52 Last Admin: 03/11/22 06:07 Dose: 12.5 mg Documented By: RAMON Carvedilol (Carvedilol 12.5 Mg Tablet) 12.5 mg PO NOW ONE Stop: 03/11/22 08:49 Last Admin: 03/11/22 08:50 Dose: 12.5 mg Documented By: DHARA Sodium Chloride (Normal Saline 0.9%) 1,000 mls @ 1,000 mls/hr IV BOLUS ONE Stop: 03/11/22 04:50 Last Infusion: 03/11/22 05:18 Dose: 0 mls/hr Documented By: Admin: 03/11/22 04:30 Dose: 1,000 mls/hr Documented By: GC Sodium Chloride (Normal Saline 0.9%) 500 mls @ 1,000 mls/hr IV BOLUS ONE Stop: 03/11/22 06:55 Last Infusion: 03/11/22 08:45 Dose: 0 mls/hr Documented By: Admin: 03/11/22 07:47 Dose: 1,000 mls/hr Documented By: DHARA Lisinopril (Lisinopril 20 Mg Tablet) 40 mg PO NOW ONE Stop: 03/11/22 03:52 Last Admin: 03/11/22 06:06 Dose: 20 mg Documented By: RAMON Lisinopril (Lisinopril 20 Mg Tablet) 20 mg PO NOW ONE Stop: 03/11/22 08:49 Last Admin: 03/11/22 08:50 Dose: 20 mg Documented By: DHARA Metoclopramide HCl (Metoclopramide 10 Mg/2 Ml Inj) 10 mg IV NOW ONE Stop: 03/11/22 06:27 Last Admin: 03/11/22 07:47 Dose: 10 mg Documented By: DHARA Ondansetron HCl (Ondansetron 4 Mg/2 Ml Inj) 4 mg IV NOW PRN PRN Reason: Nausea And Vomiting Ondansetron HCl (Ondansetron 4 Mg Odt) 4 mg SL NOW PRN PRN Reason: Nausea And Vomiting Last Admin: 03/11/22 02:45 Dose: 4 mg Documented By: VANESA Ondansetron HCl (Ondansetron 4 Mg/2 Ml Inj) 4 mg IV NOW ONE Stop: 03/11/22 03:52 Last Admin: 03/11/22 04:37 Dose: 4 mg Documented By: VANESA Vital Signs Vital signs: Vital Signs - 8 hr 03/11/22 02:09 03/11/22 06:06 03/11/22 02:31 Temperature 98.4 F Pulse Rate 102 H 102 H Respiratory Rate 16 19 Blood Pressure 216/125 H 232/133 H Pulse Oximetry 99 96 Oxygen Delivery Method Room Air 03/11/22 03:00 03/11/22 03:00 03/11/22 03:30 Temperature Pulse Rate 95 H Respiratory Rate Blood Pressure 207/111 H 220/113 H Pulse Oximetry 96 Oxygen Delivery Method 03/11/22 03:30 03/11/22 04:00 03/11/22 04:00 Temperature Pulse Rate 96 H 108 H Respiratory Rate Blood Pressure 251/134 H Pulse Oximetry 96 98 Oxygen Delivery Method 03/11/22 04:30 03/11/22 04:30 03/11/22 05:00 Temperature Pulse Rate 89 95 H Respiratory Rate Blood Pressure 206/110 H Pulse Oximetry 95 93 Oxygen Delivery Method 03/11/22 05:01 03/11/22 05:01 03/11/22 05:18 Temperature Pulse Rate 94 H Respiratory Rate Blood Pressure 247/125 H 232/125 H Pulse Oximetry 96 Oxygen Delivery Method 03/11/22 05:18 03/11/22 05:30 03/11/22 05:30 Temperature Pulse Rate 101 H 102 H Respiratory Rate Blood Pressure 232/133 H Pulse Oximetry 96 95 Oxygen Delivery Method 03/11/22 06:00 03/11/22 06:30 03/11/22 07:00 Temperature Pulse Rate 98 H 96 H 93 H Respiratory Rate Blood Pressure Pulse Oximetry 94 94 94 Oxygen Delivery Method 03/11/22 07:30 03/11/22 07:43 03/11/22 07:43 Temperature Pulse Rate 96 H Respiratory Rate Blood Pressure 205/119 H Pulse Oximetry 97 96 Oxygen Delivery Method 03/11/22 08:50 03/11/22 08:50 03/11/22 08:52 Temperature Pulse Rate 90 91 H 88 Respiratory Rate 18 Blood Pressure 176/99 H 176/99 H 199/111 H Pulse Oximetry 94 Oxygen Delivery Method Room Air MDM - Nausea/Vomiting/Diarrhea <Hue Tong MD - Last Filed: 03/12/22 00:27> Lab Data 03/11/22 04:25 03/11/22 04:25 Labs: Lab Results 03/11/22 03/11/22 03/11/22 Range/Units 04:25 04:25 04:25 WBC 10.4 (4.5-11.0) X10^3/uL RBC 5.37 (4.5-5.9) X10^6/uL Hgb 15.4 (13.5-17.5) g/dL Hct 44.7 (41-53) % MCV 83.2 (80-100) fL MCH 28.6 (26-34) PG MCHC 34.3 (30-36) % RDW 14.1 (11.6-14.8) % Plt Count 299 (150-400) X10^3/uL Neut % (Auto) 80.8 H (50-75) % Lymph % (Auto) 13.1 L (25-40) % [place] % (Auto) 5.9 (3-14) % Eos % (Auto) 0.0 L (2-4) % Baso % (Auto) 0.2 (0-2) % Neut # (Auto) 8400 H (9357-0226) /uL Lymph # (Auto) 1400 (1105-2602) /uL [place] # (Auto) 600 (0-900) /uL Eos # (Auto) 0 (0-450) /uL Baso # (Auto) 0 (0-100) /uL Sodium 140 (137-145) mmol/L Potassium 3.6 (3.4-5.1) mmol/L Chloride 98 (98-107) mmol/L Carbon Dioxide 29 (22-32) mmol/L BUN 22 H (9-20) mg/dL Creatinine 0.87 (0.66-1.25) mg/dL Estimated GFR > 60 (>60) mL/min BUN/Creatinine Ratio 25.3 H (6-22) Glucose 190 H (70-100) mg/dL Lactate 1.3 (0.7-2.1) mmol/L Calcium 9.0 (8.4-10.2) mg/dL Magnesium 1.6 (1.6-2.3) mg/dL Total Bilirubin 0.9 (0.2-1.3) mg/dL AST 33 (17-59) IU/L ALT 35 (<50) IU/L Alkaline Phosphatase 61 (38-126) U/L Troponin I < 0.012 (0.01-0.034) ng/mL NT-Pro-B Natriuret Pep 297 H (<125) pg/mL Total Protein 8.7 H (6.3-8.2) g/dL Albumin 4.6 (3.5-5.0) g/dL Globulin 4.1 (1.7-4.1) g/dL Albumin/Globulin Ratio 1.1 (1.0-2.8) Lipase 92 (23-300) U/L Procalcitonin 0.05 (<0.5) ng/mL Urine Color Urine Appearance Urine pH (4.5-8.0) Ur Specific [place] (1.000-1.035) Urine Protein (Negative) Urine Glucose (UA) (Negative) g/dL Urine Ketones (NEGATIVE) Urine Occult Blood (Negative) Urine Nitrate (Negative) Urine Bilirubin (NEGATIVE) Urine Urobilinogen (0.2) E.U./dL Ur Leukocyte Esterase (NEGATIVE) Urine RBC (0-5/HPF) Urine WBC (0-5/HPF) Amorphous Sediment Urine Bacteria (None) Urine Mucus (Negative) Ur Culture Indicated? Ketones 0.56 H (<0.27) mmol/L Chlamy pneumoniae PCR (Not Detect) Adenovirus (PCR) (Not Detect) B. pertussis DNA (PCR) (Not Detecte) B.parapertussis DNA PCR (Not Detecte) Coronavirus OC43 (PCR) (Not Detect) Coronavirus HKU1 (PCR) (Not Detect) Coronavirus 229E (PCR) (Not Detect) SARS-CoV-2 (PCR) (Not Detecte) Coronavirus NL63 (PCR) (Not Detect) Human Metapneumovir PCR (Not Detect) Influenza Type A (PCR) (Not Detect) Influenza Type B (PCR) (Not Detect) M. pneumoniae (PCR) (Not Detect) Parainfluenza 1 (PCR) (Not Detect) Parainfluenza 2 (PCR) (Not Detect) Parainfluenza 3 (PCR) (Not Detect) Parainfluenza 4 (PCR) (Not Detect) RSV (PCR) (Not Detect) Entero/Rhino (PCR) (Not Detect) 03/11/22 03/11/22 Range/Units 07:14 07:30 WBC (4.5-11.0) X10^3/uL RBC (4.5-5.9) X10^6/uL Hgb (13.5-17.5) g/dL Hct (41-53) % MCV (80-100) fL MCH (26-34) PG MCHC (30-36) % RDW (11.6-14.8) % Plt Count (150-400) X10^3/uL Neut % (Auto) (50-75) % Lymph % (Auto) (25-40) % [place] % (Auto) (3-14) % Eos % (Auto) (2-4) % Baso % (Auto) (0-2) % Neut # (Auto) (4392-2919) /uL Lymph # (Auto) (4183-7422) /uL [place] # (Auto) (0-900) /uL Eos # (Auto) (0-450) /uL Baso # (Auto) (0-100) /uL Sodium (137-145) mmol/L Potassium (3.4-5.1) mmol/L Chloride (98-107) mmol/L Carbon Dioxide (22-32) mmol/L BUN (9-20) mg/dL Creatinine (0.66-1.25) mg/dL Estimated GFR (>60) mL/min BUN/Creatinine Ratio (6-22) Glucose (70-100) mg/dL Lactate (0.7-2.1) mmol/L Calcium (8.4-10.2) mg/dL Magnesium (1.6-2.3) mg/dL Total Bilirubin (0.2-1.3) mg/dL AST (17-59) IU/L ALT (<50) IU/L Alkaline Phosphatase (38-126) U/L Troponin I (0.01-0.034) ng/mL NT-Pro-B Natriuret Pep (<125) pg/mL Total Protein (6.3-8.2) g/dL Albumin (3.5-5.0) g/dL Globulin (1.7-4.1) g/dL Albumin/Globulin Ratio (1.0-2.8) Lipase (23-300) U/L Procalcitonin (<0.5) ng/mL Urine Color Yellow Urine Appearance Clear Urine pH 6.0 (4.5-8.0) Ur Specific [place] >=1.030 H (1.000-1.035) Urine Protein 2+ H (Negative) Urine Glucose (UA) Trace H (Negative) g/dL Urine Ketones 1+ H (NEGATIVE) Urine Occult Blood 2+ H (Negative) Urine Nitrate Negative (Negative) Urine Bilirubin Negative (NEGATIVE) Urine Urobilinogen 0.2 (0.2) E.U./dL Ur Leukocyte Esterase Negative (NEGATIVE) Urine RBC 1-5/hpf (0-5/HPF) Urine WBC 5-10/hpf H (0-5/HPF) Amorphous Sediment 1+ Urine Bacteria Occasional (0-1) (None) Urine Mucus 1+ H (Negative) Ur Culture Indicated? Specimen cultured Ketones (<0.27) mmol/L Chlamy pneumoniae PCR Not detected (Not Detect) Adenovirus (PCR) Not detected (Not Detect) B. pertussis DNA (PCR) Not detected (Not Detecte) B.parapertussis DNA PCR Not detected (Not Detecte) Coronavirus OC43 (PCR) Not detected (Not Detect) Coronavirus HKU1 (PCR) Not detected (Not Detect) Coronavirus 229E (PCR) Not detected (Not Detect) SARS-CoV-2 (PCR) Not detected (Not Detecte) Coronavirus NL63 (PCR) Not detected (Not Detect) Human Metapneumovir PCR Not detected (Not Detect) Influenza Type A (PCR) Not detected (Not Detect) Influenza Type B (PCR) Not detected (Not Detect) M. pneumoniae (PCR) Not detected (Not Detect) Parainfluenza 1 (PCR) Not detected (Not Detect) Parainfluenza 2 (PCR) Not detected (Not Detect) Parainfluenza 3 (PCR) Not detected (Not Detect) Parainfluenza 4 (PCR) Not detected (Not Detect) RSV (PCR) Not detected (Not Detect) Entero/Rhino (PCR) Not detected (Not Detect) MDM Narrative Medical decision making narrative: CC: Nausea and vomiting for 3 days. 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 Pertinent findings: CBC shows no leukocytosis and no significant anemia or hemo concentration Chemistries are relatively unremarkable with a creatinine normal at 0.87 despite his dehydration, glucose at 190. Lactic acid is 1.3 . Anion gap is calculated at 13 Minimally elevated proBNP at 297 Troponin is unremarkable Procalcitonin is low suggesting absence of infection Ketones are elevated at 0.56 COVID positive on February 03 Independently reviewed EKG as above Imaging studies independently reviewed: No acute pulmonary process Treatments: For enteral ondansetron, a L of fluid. Oral antihypertensives at been ordered once nausea was controlled Re-evaluations: 620am still moderately orthostatic resting heart rate lying flat in the upper 80s and sitting of jumps up to 110. Another L of fluid will be given. Still queasy but willing to try taking his blood pressure medications. Notes that if he takes all of them at the same time he gets hypotensive so he is given 5 mg of amlodipine, 12.5 mg of carvedilol and 20 mg of lisinopril. Patient was not aware that he did end up testing positive for COVID on February 03, 35 days ago. It may be part of the fatigue and malaise he has been experiencing. At this point he is not having any hypoxia or respiratory symptoms. Repeat respiratory panel is still pending. At this time there is no evidence of DKA or HHS, pneumonia, sepsis, acute coronary syndrome. We are able to control his nausea, get his blood pressure down and he is feeling better he may be able to be discharged home. Tends to try and avoid hospitalization at all costs. Care will be turned over to Dr. Escobedo at change of shift Discussion: Disposition: see below, along with detailed discharge instructions that have been reviewed with patient as well as indications for ED re-evaluation and additional outpatient follow up <Xavier Escobedo, DO - Last Filed: 03/11/22 09:28> Lab Data Labs: Lab Results 03/11/22 03/11/22 03/11/22 Range/Units 04:25 04:25 04:25 WBC 10.4 (4.5-11.0) X10^3/uL RBC 5.37 (4.5-5.9) X10^6/uL Hgb 15.4 (13.5-17.5) g/dL Hct 44.7 (41-53) % MCV 83.2 (80-100) fL MCH 28.6 (26-34) PG MCHC 34.3 (30-36) % RDW 14.1 (11.6-14.8) % Plt Count 299 (150-400) X10^3/uL Neut % (Auto) 80.8 H (50-75) % Lymph % (Auto) 13.1 L (25-40) % [place] % (Auto) 5.9 (3-14) % Eos % (Auto) 0.0 L (2-4) % Baso % (Auto) 0.2 (0-2) % Neut # (Auto) 8400 H (8618-4167) /uL Lymph # (Auto) 1400 (8927-7643) /uL [place] # (Auto) 600 (0-900) /uL Eos # (Auto) 0 (0-450) /uL Baso # (Auto) 0 (0-100) /uL Sodium 140 (137-145) mmol/L Potassium 3.6 (3.4-5.1) mmol/L Chloride 98 (98-107) mmol/L Carbon Dioxide 29 (22-32) mmol/L BUN 22 H (9-20) mg/dL Creatinine 0.87 (0.66-1.25) mg/dL Estimated GFR > 60 (>60) mL/min BUN/Creatinine Ratio 25.3 H (6-22) Glucose 190 H (70-100) mg/dL Lactate 1.3 (0.7-2.1) mmol/L Calcium 9.0 (8.4-10.2) mg/dL Magnesium 1.6 (1.6-2.3) mg/dL Total Bilirubin 0.9 (0.2-1.3) mg/dL AST 33 (17-59) IU/L ALT 35 (<50) IU/L Alkaline Phosphatase 61 (38-126) U/L Troponin I < 0.012 (0.01-0.034) ng/mL NT-Pro-B Natriuret Pep 297 H (<125) pg/mL Total Protein 8.7 H (6.3-8.2) g/dL Albumin 4.6 (3.5-5.0) g/dL Globulin 4.1 (1.7-4.1) g/dL Albumin/Globulin Ratio 1.1 (1.0-2.8) Lipase 92 (23-300) U/L Procalcitonin 0.05 (<0.5) ng/mL Urine Color Urine Appearance Urine pH (4.5-8.0) Ur Specific [place] (1.000-1.035) Urine Protein (Negative) Urine Glucose (UA) (Negative) g/dL Urine Ketones (NEGATIVE) Urine Occult Blood (Negative) Urine Nitrate (Negative) Urine Bilirubin (NEGATIVE) Urine Urobilinogen (0.2) E.U./dL Ur Leukocyte Esterase (NEGATIVE) Urine RBC (0-5/HPF) Urine WBC (0-5/HPF) Amorphous Sediment Urine Bacteria (None) Urine Mucus (Negative) Ur Culture Indicated? Ketones 0.56 H (<0.27) mmol/L Chlamy pneumoniae PCR (Not Detect) Adenovirus (PCR) (Not Detect) B. pertussis DNA (PCR) (Not Detecte) B.parapertussis DNA PCR (Not Detecte) Coronavirus OC43 (PCR) (Not Detect) Coronavirus HKU1 (PCR) (Not Detect) Coronavirus 229E (PCR) (Not Detect) SARS-CoV-2 (PCR) (Not Detecte) Coronavirus NL63 (PCR) (Not Detect) Human Metapneumovir PCR (Not Detect) Influenza Type A (PCR) (Not Detect) Influenza Type B (PCR) (Not Detect) M. pneumoniae (PCR) (Not Detect) Parainfluenza 1 (PCR) (Not Detect) Parainfluenza 2 (PCR) (Not Detect) Parainfluenza 3 (PCR) (Not Detect) Parainfluenza 4 (PCR) (Not Detect) RSV (PCR) (Not Detect) Entero/Rhino (PCR) (Not Detect) 03/11/22 03/11/22 Range/Units 07:14 07:30 WBC (4.5-11.0) X10^3/uL RBC (4.5-5.9) X10^6/uL Hgb (13.5-17.5) g/dL Hct (41-53) % MCV (80-100) fL MCH (26-34) PG MCHC (30-36) % RDW (11.6-14.8) % Plt Count (150-400) X10^3/uL Neut % (Auto) (50-75) % Lymph % (Auto) (25-40) % [place] % (Auto) (3-14) % Eos % (Auto) (2-4) % Baso % (Auto) (0-2) % Neut # (Auto) (2265-6777) /uL Lymph # (Auto) (8444-6651) /uL [place] # (Auto) (0-900) /uL Eos # (Auto) (0-450) /uL Baso # (Auto) (0-100) /uL Sodium (137-145) mmol/L Potassium (3.4-5.1) mmol/L Chloride (98-107) mmol/L Carbon Dioxide (22-32) mmol/L BUN (9-20) mg/dL Creatinine (0.66-1.25) mg/dL Estimated GFR (>60) mL/min BUN/Creatinine Ratio (6-22) Glucose (70-100) mg/dL Lactate (0.7-2.1) mmol/L Calcium (8.4-10.2) mg/dL Magnesium (1.6-2.3) mg/dL Total Bilirubin (0.2-1.3) mg/dL AST (17-59) IU/L ALT (<50) IU/L Alkaline Phosphatase (38-126) U/L Troponin I (0.01-0.034) ng/mL NT-Pro-B Natriuret Pep (<125) pg/mL Total Protein (6.3-8.2) g/dL Albumin (3.5-5.0) g/dL Globulin (1.7-4.1) g/dL Albumin/Globulin Ratio (1.0-2.8) Lipase (23-300) U/L Procalcitonin (<0.5) ng/mL Urine Color Yellow Urine Appearance Clear Urine pH 6.0 (4.5-8.0) Ur Specific [place] >=1.030 H (1.000-1.035) Urine Protein 2+ H (Negative) Urine Glucose (UA) Trace H (Negative) g/dL Urine Ketones 1+ H (NEGATIVE) Urine Occult Blood 2+ H (Negative) Urine Nitrate Negative (Negative) Urine Bilirubin Negative (NEGATIVE) Urine Urobilinogen 0.2 (0.2) E.U./dL Ur Leukocyte Esterase Negative (NEGATIVE) Urine RBC 1-5/hpf (0-5/HPF) Urine WBC 5-10/hpf H (0-5/HPF) Amorphous Sediment 1+ Urine Bacteria Occasional (0-1) (None) Urine Mucus 1+ H (Negative) Ur Culture Indicated? Specimen cultured Ketones (<0.27) mmol/L Chlamy pneumoniae PCR Not detected (Not Detect) Adenovirus (PCR) Not detected (Not Detect) B. pertussis DNA (PCR) Not detected (Not Detecte) B.parapertussis DNA PCR Not detected (Not Detecte) Coronavirus OC43 (PCR) Not detected (Not Detect) Coronavirus HKU1 (PCR) Not detected (Not Detect) Coronavirus 229E (PCR) Not detected (Not Detect) SARS-CoV-2 (PCR) Not detected (Not Detecte) Coronavirus NL63 (PCR) Not detected (Not Detect) Human Metapneumovir PCR Not detected (Not Detect) Influenza Type A (PCR) Not detected (Not Detect) Influenza Type B (PCR) Not detected (Not Detect) M. pneumoniae (PCR) Not detected (Not Detect) Parainfluenza 1 (PCR) Not detected (Not Detect) Parainfluenza 2 (PCR) Not detected (Not Detect) Parainfluenza 3 (PCR) Not detected (Not Detect) Parainfluenza 4 (PCR) Not detected (Not Detect) RSV (PCR) Not detected (Not Detect) Entero/Rhino (PCR) Not detected (Not Detect) ECG Data Attestation: I personally reviewed and interpreted this ECG as follows: Interpretation: Sinus rhythm Ventricular rate 91 Normal axis QRS 118 milliseconds QTC [address] T wave changes MDM Narrative Medical decision making narrative: CC: Nausea and vomiting for 3 days. 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 Pertinent findings: CBC shows no leukocytosis and no significant anemia or hemo concentration Chemistries are relatively unremarkable with a creatinine normal at 0.87 despite his dehydration, glucose at 190. Lactic acid is 1.3 . Anion gap is calculated at 13 Minimally elevated proBNP at 297 Troponin is unremarkable Procalcitonin is low suggesting absence of infection Ketones are elevated at 0.56 COVID positive on February 03 Independently reviewed EKG as above Imaging studies independently reviewed: No acute pulmonary process Treatments: For enteral ondansetron, a L of fluid. Oral antihypertensives at been ordered once nausea was controlled Re-evaluations: 620am still moderately orthostatic resting heart rate lying flat in the upper 80s and sitting of jumps up to 110. Another L of fluid will be given. Still queasy but willing to try taking his blood pressure medications. Notes that if he takes all of them at the same time he gets hypotensive so he is given 5 mg of amlodipine, 12.5 mg of carvedilol and 20 mg of lisinopril. Patient was not aware that he did end up testing positive for COVID on February 03, 35 days ago. It may be part of the fatigue and malaise he has been experiencing. At this point he is not having any hypoxia or respiratory symptoms. Repeat respiratory panel is still pending. At this time there is no evidence of DKA or HHS, pneumonia, sepsis, acute coronary syndrome. We are able to control his nausea, get his blood pressure down and he is feeling better he may be able to be discharged home. Tends to try and avoid hospitalization at all costs. Care will be turned over to Dr. Escobedo at change of shift Discussion: Disposition: see below, along with detailed discharge instructions that have been reviewed with patient as well as indications for ED re-evaluation and additional outpatient follow up Dr escobedo: Received turned over. Assumed care patient. Reviewed patient's history and physical workup up to this point. Performed my own independent evaluation. The patient's blood pressure has improved. He does have chronic hypertension. After treatment here he states he does feel somewhat better. He is hyperglycemic but not in DKA. He did tolerate his oral blood pressure medications. Does not appear to have end-organ dysfunction from the hypertension today. Will discharge home with nausea medications and instructions to follow-up with primary provider. He was given return precautions. He expressed understanding and agreement. Discharge Plan Departure Patient Disposition: Home Clinical Impression: Hypertension, Nausea Instructions: High Blood Pressure, DI for Nausea -- Adult Activity Restrictions/Additional Instructions: A prescription for some nausea medication was sent to [facility] per your request. Please take this as needed and as directed. It is also important that you continue to take the rest of your home medications to include your blood pressure medicines and also your diabetes medicines. I recommend that you contact your primary doctor for a follow-up. Return to the emergency department for new symptoms. Prescriptions: New ondansetron 4 mg tablet,disintegrating 4 mg PO Q6H PRN (Reason: nausea and vomiting) Qty: 14 0RF No Action metformin 500 mg Tablet 850 mg PO BID Rx Instructions: states he takes 850 mg carvedilol 25 mg Tablet 25 mg PO 1300 amlodipine 10 mg Tablet 10 mg PO DAILY lisinopril 40 mg Tablet 40 mg PO DAILY chlorthalidone 25 mg tablet 25 mg PO DAILY Label Comments: take 1 tablet by mouth once daily (DME) pen needle, diabetic [Pen Needle] 31 gauge x 5/16 needle See Rx Instructions .ROUTE .MEDSUPPLY Qty: 60 0RF Rx Instructions: As directed Novolog PenFill U-100 Insulin 5 units SUBCUT TID Rx Instructions: Takes before each meals. Referrals: Toño Ovalles MD [Primary Care Provider] - Stand Alone Forms: Patient Portal/API
--- NOTE | 2022-03-11 03:53 | DI.RAD.S_ITS ---
PROCEDURE: XR CHEST 1V INDICATIONS: chest pain TECHNIQUE: One view of the chest was acquired. COMPARISON: [facility], CR, XR CHEST 2V, 08/10/2021, 19:04. FINDINGS: Surgical changes and devices: None. Lungs and pleura: Lungs are clear. No pleural effusions or pneumothorax. Mediastinum: Mediastinal contours appear normal. Heart size is normal. Bones and chest wall: No suspicious bony lesions. Overlying soft tissues appear unremarkable. IMPRESSION: No acute cardiopulmonary findings Note: Final report is concordant with preliminary interpretation by [facility], [employer] Approved by: Matias Kimball M.D. on 03/11/2022 at 8:39
[2022-03-11] MEDS: SODIUM CHLORIDE 0.9% 1,000 ML 1000 ML IV (04:30)
[2022-03-11] MEDS: ONDANSETRON 4 MG/2 ML INJ IV (04:37)
[2022-03-11 04:43] LABS: HEMOLYSIS < 15 (0-50)
[2022-03-11 04:47] LABS: Lactate (Lactic Acid) 1.3 mmol/L (0.7-2.1)
[2022-03-11 04:49] LABS: Alanine Aminotransferase 35 IU/L (<50); Albumin 4.6 g/dL (3.5-5.0); Albumin Globulin Ratio 1.1 (1.0-2.8); Alkaline Phosphatase 61 U/L (38-126); Aspartate Aminotransferase 33 IU/L (17-59); BUN Creatinine Ratio 25.3 (6-22); Bilirubin Total 0.9 mg/dL (0.2-1.3); Blood Urea Nitrogen 22 mg/dL (9-20); Carbon Dioxide 29 mmol/L (22-32); Chloride 98 mmol/L (98-107); Estimated Glomerular Filt Rate > 60 mL/min (>60); Globulin 4.1 g/dL (1.7-4.1); Glucose 190 mg/dL (70-100); Lipase 92 U/L (23-300); Magnesium 1.6 mg/dL (1.6-2.3); Potassium 3.6 mmol/L (3.4-5.1); Sodium 140 mmol/L (137-145); Total Protein 8.7 g/dL (6.3-8.2)
[2022-03-11 04:56] LABS: Add Manual Diff / Slide Review NO; Basophils Absolute Auto 0 /uL (0-100); Basophils Percent Auto 0.2 % (0-2); Eosinophils Absolute Auto 0 /uL (0-450); Hematocrit 44.7 % (41-53); Hemoglobin 15.4 g/dL (13.5-17.5); Lymphocytes Absolute Auto 1400 /uL (1100-4500); Lymphocytes Percent Auto 13.1 % (25-40); Mean Corpuscular HGB Conc 34.3 % (30-36); Mean Corpuscular Hemoglobin 28.6 PG (26-34); Mean Corpuscular Volume 83.2 fL (80-100); Monocytes Absolute Auto 600 /uL (0-900); Monocytes Percent Auto 5.9 % (3-14); Neutrophils Absolute Auto 8400 /uL (1500-7000); Neutrophils Percent Auto 80.8 % (50-75); Platelet Count 299 X10^3/uL (150-400); Red Blood Cell Count 5.37 X10^6/uL (4.5-5.9); Red Cell Distribution Width 14.1 % (11.6-14.8); White Blood Cell Count 10.4 X10^3/uL (4.5-11.0)
[2022-03-11 05:01] LABS: NT-proBNP (BNP-Adult 18+) 297 pg/mL (<125); Troponin I < 0.012 ng/mL (0.01-0.034)
[2022-03-11 05:05] LABS: Procalcitonin 0.05 ng/mL (<0.5)
[2022-03-11 05:09] LABS: Ketones (Beta-Hydroxybutyrate) 0.56 mmol/L (<0.27)
[2022-03-11] MEDS: lisinopriL 20 MG TABLET 40 MG PO (06:06)
[2022-03-11] MEDS: carvediloL 12.5 MG TABLET 25 MG PO (06:07)
[2022-03-11] MEDS: AMLODIPINE 5 MG TABLET 10 MG PO (06:07)
[2022-03-11] MEDS: METOCLOPRAMIDE 10 MG/2 ML INJ IV (07:47)
[2022-03-11] MEDS: SODIUM CHLORIDE 0.9% 500 ML 1000 ML IV (07:47)
--- NOTE | 2022-03-11 07:51 | PC.NURSE ---
Vitals signs started on my shift at 0700
[2022-03-11 08:02] LABS: Appearance Urine UA CLEAR; Bilirubin Urine UA NEGATIVE (NEGATIVE); Color Urine UA YELLOW; Glucose Urine UA TRACE g/dL (Negative); Ketones Urine UA 1+ (NEGATIVE); Leukocyte Esterase Urine UA NEGATIVE (NEGATIVE); Nitrite Urine UA NEGATIVE (Negative); Occult Blood Urine UA 2+ (Negative); Protein Urine UA 2+ (Negative); Specific Gravity Urine UA >=1.030 (1.000-1.035); Urobilinogen Urine UA 0.2 E.U./dL (0.2)
[2022-03-11 08:15] LABS: Amorphous Sediment Urine 1+; Bacteria Urine Occasional (0-1); Culture Indicated Urine Specimen Cultured; Mucus Urine 1+ (Negative); RBC Urine 1-5/HPF (0-5/HPF); WBC Urine 5-10/HPF (0-5/HPF)
[2022-03-11 08:50] LABS: Adenovirus Not Detected (Not Detect); B. parapertussis Not Detected (Not Detecte); Bordetella pertussis Not Detected (Not Detecte); Chlamydophila pneumoniae Not Detected (Not Detect); Coronavirus 229E Not Detected (Not Detect); Coronavirus HKU1 Not Detected (Not Detect); Coronavirus NL 63 Not Detected (Not Detect); Coronavirus OC43 Not Detected (Not Detect); Human Metapneumovirus Not Detected (Not Detect); Human Rhinovirus/Enterovirus Not Detected (Not Detect); Influenza A Not Detected (Not Detect); Influenza B Not Detected (Not Detect); Mycoplasma pneumoniae Not Detected (Not Detect); Parainfluenza Virus 1 Not Detected (Not Detect); Parainfluenza Virus 2 Not Detected (Not Detect); Parainfluenza Virus 3 Not Detected (Not Detect); Parainfluenza Virus 4 Not Detected (Not Detect); Respiratory Syncytial Virus Not Detected (Not Detect); SARS- CoV-2 Not Detected (Not Detecte)
[2022-03-11] MEDS: AMLODIPINE 5 MG TABLET PO (08:50)
[2022-03-11] MEDS: carvediloL 12.5 MG TABLET PO (08:50)
[2022-03-11] MEDS: lisinopriL 20 MG TABLET PO (08:50)
== END 2022-03-11 09:34 | disposition home or self-care (01) ==
PROVIDERS: Emergency Medicine; Emergency Provider Emergency Medicine; PCP Family Medicine
DX: I10 Essential (primary) hypertension (principal); R11.0 Nausea; Z86.16 Personal history of COVID-19; Z20.822 Contact with and (suspected) exposure to COVID-19
CPT/HCPCS: 36415; 71045; 80053; 81001; 82009; 83605; 83690; 83735; 83880; 84145; 84484; 85025; 87040; 87086; 87633; 93005; 93010; 96361; 96374; 96375; 99284; J2405; J2765

== ENCOUNTER 2022-03-12 23:23 | Observation (INO) | payer OTHER, SELFPAY ==
[2022-03-12 23:31] VITALS: BP 203/120; PULSE 94; RESP 20; TEMP 36.8; O2SAT 99; BMI 36.2
[2022-03-12 23:41] VITALS: PULSE 91; O2SAT 99
[2022-03-12 23:42] VITALS: BP 205/127; PULSE 91; O2SAT 99
[2022-03-12 23:59] LABS: Add Manual Diff / Slide Review NO; Basophils Absolute Auto 0 /uL (0-100); Basophils Percent Auto 0.2 % (0-2); Eosinophils Absolute Auto 0 /uL (0-450); Eosinophils Percent Auto 0.1 % (2-4); Hematocrit 46.8 % (41-53); Hemoglobin 16.3 g/dL (13.5-17.5); Lymphocytes Absolute Auto 1600 /uL (1100-4500); Lymphocytes Percent Auto 14.7 % (25-40); Mean Corpuscular HGB Conc 34.8 % (30-36); Mean Corpuscular Hemoglobin 28.9 PG (26-34); Mean Corpuscular Volume 82.9 fL (80-100); Monocytes Absolute Auto 900 /uL (0-900); Monocytes Percent Auto 8.5 % (3-14); Neutrophils Absolute Auto 8300 /uL (1500-7000); Neutrophils Percent Auto 76.5 % (50-75); Platelet Count 295 X10^3/uL (150-400); Red Blood Cell Count 5.64 X10^6/uL (4.5-5.9); Red Cell Distribution Width 13.8 % (11.6-14.8); White Blood Cell Count 10.9 X10^3/uL (4.5-11.0)
[2022-03-13] VITALS (17 sets, daily range): BP systolic 142–208; BP diastolic 86–125; PULSE 77–90; RESP 19; TEMP 37–37.1; O2SAT 95–99; BMI 37.3
[2022-03-13 00:07] LABS: Alanine Aminotransferase 38 IU/L (<50); Albumin 4.6 g/dL (3.5-5.0); Albumin Globulin Ratio 1.1 (1.0-2.8); Alkaline Phosphatase 61 U/L (38-126); Aspartate Aminotransferase 35 IU/L (17-59); BUN Creatinine Ratio 22.2 (6-22); Bilirubin Total 1.5 mg/dL (0.2-1.3); Blood Urea Nitrogen 22 mg/dL (9-20); Calcium 9.2 mg/dL (8.4-10.2); Carbon Dioxide 29 mmol/L (22-32); Chloride 95 mmol/L (98-107); Estimated Glomerular Filt Rate > 60 mL/min (>60); Globulin 4.1 g/dL (1.7-4.1); Glucose 216 mg/dL (70-100); HEMOLYSIS 17 (0-50); Lipase 125 U/L (23-300); Potassium 3.9 mmol/L (3.4-5.1); Sodium 136 mmol/L (137-145); Total Protein 8.7 g/dL (6.3-8.2)
[2022-03-13] MEDS: SODIUM CHLORIDE 0.9% 1,000 ML 1000 ML IV (00:23)
--- NOTE | 2022-03-13 01:00 | DI.CT.S_ITS ---
PROCEDURE: CT ABDOMEN PELVIS W CON INDICATIONS: persistent nausea and severe fatigue TECHNIQUE: After the administration of IV contrast, axial sections were acquired from the lung bases to the pubic symphysis. Coronal and sagittal reformats were performed. For radiation dose reduction, the following was used: automated exposure control, adjustment of mA and/or kV according to patient size. COMPARISON: [facility], CT, CT ABDOMEN PELVIS W CON, 05/25/2020, 15:31. FINDINGS: Image quality: Excellent. Lung bases: There is minimal dependent atelectasis. Heart: Heart is normal in size. There is a small hiatal hernia. ABDOMEN: Liver: No mass lesion. Gallbladder: Within normal limits without calcified gallstones. Biliary ducts: No biliary ductal dilatation. Pancreas: Unremarkable. Spleen: Normal in size. Adrenal Glands: No adrenal nodules. Kidneys and Ureters: No hydronephrosis. Stomach and Bowel: Stomach and small bowel loops are normal in caliber and wall thickness. The appendix is normal in appearance. There is colonic diverticulosis without acute diverticulitis. There is suggestion of mild colonic wall thickening in the descending and sigmoid colon which are nondistended. Peritoneum: No abnormal intraperitoneal fluid. No free air. Ventral Wall: No hernia. Abdominal Nodes: No retroperitoneal or mesenteric adenopathy by size criteria. Vessels: Aorta and inferior vena cava are normal in size. PELVIS: Pelvic Organs: Unremarkable. Bladder: Unremarkable. Pelvic Nodes: No enlarged lymph nodes. Miscellaneous: No inguinal hernias are seen. Bones: Visualized osseous structures demonstrate no suspicious focal lesions. IMPRESSION: 1. Mild colonic wall thickening in the descending and sigmoid colon may reflect a mild colitis versus artifact from nondistention. 2. Elsewhere, no acute intra-abdominal abnormality. Dictated by: Nemesio Foreman M.D. on 03/13/2022 at 1:32 Approved by: Nemesio Foreman M.D. on 03/13/2022 at 1:36
--- NOTE | 2022-03-13 01:00 | ED.NAVMDI ---
HPI - Nausea/Vomiting/Diarrhea General Chief complaint: Nausea/Vomiting/Diarrhea Stated complaint: n/v Time Seen by Provider: 03/13/22 00:10 Source: patient Mode of arrival: Ambulatory History of Present Illness HPI Narrative: 51-year-old gentleman with history of diabetes poorly controlled, hypertension, diabetic foot infections difficulty in accessing medical care who has recurrent episodes of nausea and vomiting. Was seen yesterday for similar complaints felt better at time of discharge and was discharged home. He had some Zofran available at home but was not able to fill the prescription given yesterday. States he did take 2 Zofran at home however was unable to eat or drink once he was discharged. His complaints continue to be vague with severe fatigue to the point he has difficulty lifting his head off the pillow, dramatic nausea and unable to eat or drink including taking any of his medications. He is convinced that this is because his blood sugars are significantly elevated however he has been appropriately using his insulin. He unfortunately has not been able to take any of his hypertensive medications. You seen with similar findings at the end of January and did test positive for COVID at that time. Full respiratory panel done yesterday does not show any acute viral etiology with current symptoms. 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 Today he is feeling so poorly and is so weak he is actually willing to consider hospitalization. He is not describing fevers or chills, no chest pain but he has been having increased reflux type symptoms from all of the emesis. No significant abdominal pain or diarrhea. No overt headache but does complain of general cognitive cloudiness. Related Data Home Medications Medication Instructions Recorded Confirmed amlodipine 10 mg tablet 10 mg PO DAILY 03/14/18 03/13/22 carvedilol 25 mg tablet 25 mg PO 1300 03/14/18 03/13/22 lisinopril 40 mg tablet 40 mg PO DAILY 03/14/18 03/13/22 metformin 500 mg tablet 850 mg PO BID 03/14/18 03/13/22 Novolog PenFill U-100 Insulin 12 - 15 units SUBCUT BID 09/30/19 03/13/22 Previous Rx's Medication Instructions Recorded pen needle, diabetic 31 gauge x #60 ea 09/08/1906/20 (Pen Needle) Allergies Allergy/AdvReac Type Severity Reaction Status Date / Time No Known Drug Allergies Allergy Verified 03/12/22 23:39 Review of Systems Review of Systems Narrative: Remainder of complete review of systems is otherwise unremarkable except for that included in the HPI. Patient History Medical History Congestive heart failure COVID Diabetes mellitus Hypertension Ulcer of left lower leg Ulcer of right leg Surgical History History of foot surgery Family History Father Myocardial infarction Mother Diabetes mellitus Brother Diabetes mellitus Social History household members: spouse and children Smoking Status: Former smoker alcohol intake: never Smoking Status: Former smoker tobacco type: cigarettes alcohol intake frequency: holidays/special occasions only Substance Use Type: marijuana Exam Initial Vital Signs Initial Vital Signs: Vital Signs Temperature 98.2 F 03/12/22 23:31 Pulse Rate 94 H 03/12/22 23:31 Respiratory Rate 20 03/12/22 23:31 Blood Pressure 203/120 H 03/12/22 23:31 Pulse Oximetry 99 03/12/22 23:31 Oxygen Delivery Method 03/12/22 23:31 General: Pale, significantly fatigued attempting to be cooperative HEENT: Moist mucous membranes, normal sclera with reactive pupils, Neck: No JVD, supple Respiratory: Lungs are clear to auscultation, no wheezing no rales no rhonchi. Full and symmetrical air movement Cardiac: Mild tachycardia without murmurs Abdomen: Soft, nontender, good bowel tones, no flank pain Skin: Pale with overall poor skin turgor Neurologic: Globally weak but Grossly neurologically intact with no obvious asymmetries or abnormalities Extremities: No trauma, superficial wound lateral aspect of the left foot that is healing nicely with no evidence of infection Psych: Cooperative, dramatic fatigue Course Orders Ordered: ED Orders 03/12/22 23:50 Complete Blood Count AUTO DIFF Stat Comprehensive Metabolic Panel Stat Lipase Stat 03/13/22 01:00 CT abdomen pelvis w con Stat 03/13/22 01:42 Troponin & CK Cardiac Panel Stat 03/13/22 03:37 Education, smoking cessation ONGOING 03/13/22 03:41 Hemoglobin A1C% w Est Avg Glu Stat 03/13/22 04:11 Comprehensive Metabolic Panel DAILY Magnesium DAILY 03/14/22 05:00 Basic Metabolic Panel DAILY Comprehensive Metabolic Panel DAILY Magnesium DAILY Acetaminophen (Acetaminophen 325 Mg Tablet) 650 mg PO Q6H PRN PRN Reason: Fever/Mild Pain (1-3) Amlodipine Besylate (Amlodipine 5 Mg Tablet) 10 mg PO DAILY [place] Carvedilol (Carvedilol 12.5 Mg Tablet) 25 mg PO 1300 [facility] Dextrose (Dextrose 50 % In Water 25 Gm/50 Ml Syringe) 25 gm IV PRN PRN PRN Reason: Hypoglycemia Enoxaparin Sodium (Enoxaparin 40 Mg/0.4 Ml Syringe) 40 mg SUBCUT DAILY [facility] Lactated Ringer's (Lactated Ringers) 1,000 mls @ 150 mls/hr IV CONT [place] Last Infusion: 03/13/22 04:26 Dose: 150 mls/hr Documented By: Admin: 03/13/22 01:37 Dose: 150 mls/hr Documented By: BRIT Sodium Chloride (Normal Saline 0.9%) 1,000 mls @ 100 mls/hr IV CONT [facility] Insulin Glargine (Insulin Glargine 100 Unit/Ml 3ml Pen) 12 unit SUBCUT BID [place] Insulin Human Lispro (Insulin Lispro 100 Unit/Ml 3ml Vial) 0 unit SUBCUT ACHS [place]; Protocol Lisinopril (Lisinopril 20 Mg Tablet) 40 mg PO DAILY [facility] Metoclopramide HCl (Metoclopramide 10 Mg/2 Ml Inj) 10 mg IV Q6HR PRN PRN Reason: Nausea And Vomiting Naloxone HCl (Naloxone 0.4 Mg/Ml Vial) 0.2 mg IV Q2MIN PRN PRN Reason: Opiate Reversal Discontinued Medications Amlodipine Besylate (Amlodipine 5 Mg Tablet) 5 mg PO NOW ONE Stop: 03/13/22 03:04 Last Admin: 03/13/22 03:15 Dose: 5 mg Documented By: BRIT Carvedilol (Carvedilol 12.5 Mg Tablet) 12.5 mg PO NOW ONE Stop: 03/13/22 03:04 Last Admin: 03/13/22 03:15 Dose: 12.5 mg Documented By: BRIT Hydralazine HCl (Hydralazine 20 Mg/Ml Vial) 10 mg IV NOW ONE Stop: 03/13/22 01:01 Last Admin: 03/13/22 01:24 Dose: 10 mg Documented By: BRIT Sodium Chloride (Normal Saline 0.9%) 1,000 mls @ 1,000 mls/hr IV BOLUS ONE Stop: 03/13/22 01:11 Last Infusion: 03/13/22 01:08 Dose: 0 mls/hr Documented By: Admin: 03/13/22 00:23 Dose: 1,000 mls/hr Documented By: BRIT Lisinopril (Lisinopril 20 Mg Tablet) 20 mg PO NOW ONE Stop: 03/13/22 03:04 Last Admin: 03/13/22 03:15 Dose: 20 mg Documented By: BRIT Metoclopramide HCl (Metoclopramide 10 Mg/2 Ml Inj) 10 mg IV NOW ONE Stop: 03/13/22 01:01 Last Admin: 03/13/22 01:26 Dose: 10 mg Documented By: BRIT Ondansetron HCl (Ondansetron 4 Mg Odt) 4 mg PO NOW PRN PRN Reason: Nausea And Vomiting Ondansetron HCl (Ondansetron 4 Mg/2 Ml Inj) 4 mg IV NOW PRN PRN Reason: Nausea And Vomiting Pantoprazole Sodium (Pantoprazole 40 Mg Vial) 40 mg IV NOW ONE Stop: 03/13/22 01:01 Last Admin: 03/13/22 01:22 Dose: 40 mg Documented By: BRIT Vital Signs Vital signs: Vital Signs - 8 hr 03/12/22 23:31 03/12/22 23:41 03/12/22 23:42 Temperature 98.2 F Pulse Rate 94 H 91 H 91 H Respiratory Rate 20 Blood Pressure 203/120 H Pulse Oximetry 99 99 99 Oxygen Delivery Method Room Air Room Air Room Air 03/12/22 23:42 03/13/22 00:00 03/13/22 00:00 Temperature Pulse Rate 87 Respiratory Rate Blood Pressure 205/127 H 207/125 H Pulse Oximetry 98 Oxygen Delivery Method Room Air 03/13/22 00:30 03/13/22 00:30 03/13/22 01:24 Temperature Pulse Rate 81 82 Respiratory Rate Blood Pressure 204/118 H 205/118 H Pulse Oximetry 95 Oxygen Delivery Method Room Air 03/13/22 01:00 03/13/22 01:00 03/13/22 01:24 Temperature Pulse Rate 85 83 Respiratory Rate Blood Pressure 208/123 H Pulse Oximetry 99 98 Oxygen Delivery Method Room Air 03/13/22 01:24 03/13/22 01:30 03/13/22 01:30 Temperature Pulse Rate 81 Respiratory Rate Blood Pressure 205/118 H 182/105 H Pulse Oximetry 98 Oxygen Delivery Method 03/13/22 01:42 03/13/22 01:42 03/13/22 01:51 Temperature Pulse Rate 78 77 Respiratory Rate Blood Pressure 142/97 H 142/97 H Pulse Oximetry 97 Oxygen Delivery Method Room Air 03/13/22 02:00 03/13/22 02:00 03/13/22 02:30 Temperature Pulse Rate 78 Respiratory Rate Blood Pressure 147/86 H 182/100 H Pulse Oximetry 97 Oxygen Delivery Method Room Air 03/13/22 02:30 03/13/22 03:15 03/13/22 03:15 Temperature Pulse Rate 84 80 80 Respiratory Rate Blood Pressure 182/99 H 182/99 H Pulse Oximetry 97 Oxygen Delivery Method Room Air 03/13/22 03:00 03/13/22 03:00 03/13/22 03:30 Temperature Pulse Rate 80 Respiratory Rate Blood Pressure 182/99 H 179/105 H Pulse Oximetry 97 Oxygen Delivery Method Room Air 03/13/22 03:30 Temperature Pulse Rate 81 Respiratory Rate Blood Pressure Pulse Oximetry 97 Oxygen Delivery Method Room Air MDM - Nausea/Vomiting/Diarrhea Lab Data 03/12/22 23:50 03/12/22 23:50 Labs: Lab Results 03/12/22 03/12/22 03/12/22 Range/Units 23:50 23:50 23:50 WBC 10.9 (4.5-11.0) X10^3/uL RBC 5.64 (4.5-5.9) X10^6/uL Hgb 16.3 (13.5-17.5) g/dL Hct 46.8 (41-53) % MCV 82.9 (80-100) fL MCH 28.9 (26-34) PG MCHC 34.8 (30-36) % RDW 13.8 (11.6-14.8) % Plt Count 295 (150-400) X10^3/uL Neut % (Auto) 76.5 H (50-75) % Lymph % (Auto) 14.7 L (25-40) % [place] % (Auto) 8.5 (3-14) % Eos % (Auto) 0.1 L (2-4) % Baso % (Auto) 0.2 (0-2) % Neut # (Auto) 8300 H (6240-8407) /uL Lymph # (Auto) 1600 (7170-3479) /uL [place] # (Auto) 900 (0-900) /uL Eos # (Auto) 0 (0-450) /uL Baso # (Auto) 0 (0-100) /uL Sodium 136 L (137-145) mmol/L Potassium 3.9 (3.4-5.1) mmol/L Chloride 95 L (98-107) mmol/L Carbon Dioxide 29 (22-32) mmol/L BUN 22 H (9-20) mg/dL Creatinine 0.99 (0.66-1.25) mg/dL Estimated GFR > 60 (>60) mL/min BUN/Creatinine Ratio 22.2 H (6-22) Glucose 216 H (70-100) mg/dL Hemoglobin A1c 7.6 H (4.0-6.0) % Calcium 9.2 (8.4-10.2) mg/dL Total Bilirubin 1.5 H (0.2-1.3) mg/dL AST 35 (17-59) IU/L ALT 38 (<50) IU/L Alkaline Phosphatase 61 (38-126) U/L Total Creatine Kinase (55-170) U/L CK-MB (CK-2) (<2.37) ng/mL CK-MB (CK-2) Rel Index (1.5-5.0) % Troponin I (0.01-0.034) ng/mL Total Protein 8.7 H (6.3-8.2) g/dL Albumin 4.6 (3.5-5.0) g/dL Globulin 4.1 (1.7-4.1) g/dL Albumin/Globulin Ratio 1.1 (1.0-2.8) Lipase 125 (23-300) U/L 03/13/22 Range/Units 01:42 WBC (4.5-11.0) X10^3/uL RBC (4.5-5.9) X10^6/uL Hgb (13.5-17.5) g/dL Hct (41-53) % MCV (80-100) fL MCH (26-34) PG MCHC (30-36) % RDW (11.6-14.8) % Plt Count (150-400) X10^3/uL Neut % (Auto) (50-75) % Lymph % (Auto) (25-40) % [place]ks % (Auto) (3-14) % Eos % (Auto) (2-4) % Baso % (Auto) (0-2) % Neut # (Auto) (1522-4091) /uL Lymph # (Auto) (2573-7790) /uL Berks # (Auto) (0-900) /uL Eos # (Auto) (0-450) /uL Baso # (Auto) (0-100) /uL Sodium (137-145) mmol/L Potassium (3.4-5.1) mmol/L Chloride (98-107) mmol/L Carbon Dioxide (22-32) mmol/L BUN (9-20) mg/dL Creatinine (0.66-1.25) mg/dL Estimated GFR (>60) mL/min BUN/Creatinine Ratio (6-22) Glucose (70-100) mg/dL Hemoglobin A1c (4.0-6.0) % Calcium (8.4-10.2) mg/dL Total Bilirubin (0.2-1.3) mg/dL AST (17-59) IU/L ALT (<50) IU/L Alkaline Phosphatase (38-126) U/L Total Creatine Kinase 158 (55-170) U/L CK-MB (CK-2) 1.59 (<2.37) ng/mL CK-MB (CK-2) Rel Index 1.0 L (1.5-5.0) % Troponin I < 0.012 (0.01-0.034) ng/mL Total Protein (6.3-8.2) g/dL Albumin (3.5-5.0) g/dL Globulin (1.7-4.1) g/dL Albumin/Globulin Ratio (1.0-2.8) Lipase (23-300) U/L Point of Care Testing Glucose POC [address] scan - abdomen/pelvis: Radiologist's Impression: FINDINGS:? Image quality:? Excellent.? ? Lung bases:? There is minimal dependent atelectasis.? ? Heart:? Heart is normal in size.? There is a small hiatal hernia. ? ? ABDOMEN: Liver:? No mass lesion. Gallbladder:? Within normal limits without calcified gallstones.? ? Biliary ducts:? No biliary ductal dilatation.? ? Pancreas:? Unremarkable.? ? Spleen:? Normal in size.? ? Adrenal Glands:? No adrenal nodules.? ? Kidneys and Ureters:? No hydronephrosis.? ? ? Stomach and Bowel:? Stomach and small bowel loops are normal in caliber and wall thickness.? The appendix is normal in appearance.? There is colonic diverticulosis without acute diverticulitis.? There is suggestion of mild colonic wall thickening in the descending and sigmoid colon which are nondistended.? Peritoneum:? No abnormal intraperitoneal fluid.? No free air.? ? Ventral Wall: ? No hernia.? Abdominal Nodes:? No retroperitoneal or mesenteric adenopathy by size criteria.? Vessels:? Aorta and inferior vena cava are normal in size.? ? PELVIS: Pelvic Organs:? Unremarkable.? ? Bladder:? Unremarkable.? ? Pelvic Nodes: No enlarged lymph nodes.? Miscellaneous: No inguinal hernias are seen. ? ? ? Bones:? Visualized osseous structures demonstrate no suspicious focal lesions. ? IMPRESSION:? ? 1. Mild colonic wall thickening in the descending and sigmoid colon may reflect a mild colitis versus artifact from nondistention. ? 2. Elsewhere, no acute intra-abdominal abnormality.? ? ? Dictated by: Nemesio Foreman M.D. on 03/13/2022 at 1:32 ? ? ECG Data Interpretation: Sinus rhythm at a rate of 87 QTC is 486 No significant ischemic changes MDM Narrative Medical decision making narrative: CC: Persistent vomiting and global weakness. 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 Mild dehydration with no overt volume overload significant hypertension without chest pain or stroke signs or symptoms. Lab Test results independently reviewed as above. Pertinent findings: Respiratory panel was done within last 24 hours and was not felt to be appropriate to repeat. It was unremarkable CBC is unremarkable Chemistries are reassuring and similar to last night. Slightly elevated glucose at 2:16 a.m.. Normal renal function, slightly elevated bilirubin at 1.5 which is similar to yesterday Troponin is unremarkable as is CK-MB fraction. Yesterday BNP was only minimally elevated at 297 based on clinical exam not felt necessary to repeat today Independently reviewed EKG as above Imaging studies independently reviewed: CT scan of the abdomen was ordered in light of his persistent severe nausea and vomiting. Findings are unrevealing specifically no obstruction no obvious ulcer no perforation. Treatments: IV fluids, Zofran, Reglan, hydralazine, protonix Re-evaluations: 230am he is feeling somewhat better after medications as above. He is willing to try taking some of his oral antihypertensives. We briefly talked about possibility diabetic gastroparesis as a cause for his symptoms. Has not been given Reglan previously and given his slightly prolonged QTc he may benefit from sticking with either Reglan or Phenergan rather than continued Zofran to the rest of his hospital stay. Continues to be dramatically week and for that I do not have a full explanation. There is no evidence acute coronary syndrome, sepsis, anemia from acute blood loss. Blood pressures remain elevated but this appears to be his benign essential hypertension untreated secondary to inability to swallow pills from the nausea rather than hypertensive crisis or emergency. He is no evidence of stroke or meningitis. There are no dramatic electrolyte abnormalities or acute kidney injury. I suppose possibility of long COVID syndrome after his COVID diagnosis at the end of January remains a possibility to explain the dramatic fatigue that he is experiencing. He agrees to hospitalization we will continue gentle hydration, Reglan for nausea control allow him some gut rest and re-evaluate and see if he is able to eat after a few hours of additional nausea control and gentle hydration. Care is discussed with the hospital service Discharge Plan Departure Patient Disposition: Admitted as Observation Clinical Impression: Nausea and vomiting, Weakness, Diabetic gastroparesis Admit Date/Time: 02/06/23 03:39 Admit Provider: Leona Short
[2022-03-13] MEDS: PANTOPRAZOLE 40 MG VIAL IV (01:22)
[2022-03-13] MEDS: HYDRALAZINE 20 MG/ML VIAL 10 MG IV (01:24)
[2022-03-13] MEDS: METOCLOPRAMIDE 10 MG/2 ML INJ IV ×2 (01:26→09:05)
[2022-03-13] MEDS: LACTATED RINGERS 1,000 ML 150 ML IV (01:37)
[2022-03-13 02:04] LABS: Creatine Kinase 158 U/L (55-170)
[2022-03-13 02:16] LABS: Troponin I < 0.012 ng/mL (0.01-0.034)
[2022-03-13 02:19] LABS: Creatine Kinase MB 1.59 ng/mL (<2.37)
[2022-03-13] MEDS: carvediloL 12.5 MG TABLET PO (03:15)
[2022-03-13] MEDS: lisinopriL 20 MG TABLET PO (03:15)
[2022-03-13] MEDS: AMLODIPINE 5 MG TABLET PO (03:15)
[2022-03-13 04:10] LABS: Hemoglobin A1C% w Est Avg Glu 7.6 % (4.0-6.0)
--- NOTE | 2022-03-13 04:58 | P.HP_ITS ---
History of Present Illness History of Present Illness Date Patient Seen: 03/13/22 Time Patient Seen: 04:59 Chief complaint: n/v, likely diabetic gastroparesis Narrative: Curtis Mari is a 51-year-old gentleman with history of diabetes poorly controlled, hypertension, diabetic foot infections with difficulty in accessing medical care who has recurrent episodes of nausea and vomiting for the past 3 days.? He was seen in the ED yesterday for similar complaints, felt better after being administered IV antiemetics and was discharged home.? He had some Zofran available at home but was not able to fill the prescription given yesterday.? States he did take 2 Zofran tablets at home however was unable to eat or drink once he was discharged.? He was suspecting his blood sugars were high into the high 200s. His goal is for his glucose to be between 180-200. He is convinced that this is because his blood sugars are significantly elevated however he has been appropriately using his insulin.? He unfortunately has not been able to take any of his oral hypertensive medications. He denies fever but does endorse having chills after vomiting, denies constipation but has had yellow colored diarrhea. 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 He did have COVID in January of 2022, but is currently denying any respiratory symptoms. CT of the abdomen and pelvis was unremarkable per their report. He is afebrile, blood pressure 171/103 heart rate 90 respiratory rate 19 oxygen saturation of 98% on room air he weighs 121 kg with a BMI of 37.4. CBC is unremarkable he does have a lymphopenia at 40% and a mild left shift 8300 neutrophils his A1c is 7.6, chemistries are within normal limits, troponin was normal, lipase is within normal limits and COVID-19 PCR done yesterday on 03/12 was negative. Patient History Medical History Congestive heart failure COVID Diabetes mellitus Hypertension Ulcer of left lower leg Ulcer of right leg Surgical History History of foot surgery Family & Social History Family History Father Myocardial infarction Mother Diabetes mellitus Brother Diabetes mellitus Social History: household members spouse,children Prior Living Arrangements House Safety & Behavioral: Feels Safe in Current Yes Environment Been Physically Hurt or No Threatened By a Person Tobacco & Substance use: Tobacco type cigarettes,cannabis/marijuana Smoking Status Former smoker alcohol intake never alcohol intake frequency holiday/special occasion Substance Use Type marijuana Meds Home Medications and Allergies Home Medications Medication Instructions Recorded Confirmed Type amlodipine 10 mg tablet 10 mg PO DAILY 03/14/18 03/13/22 History carvedilol 25 mg tablet 25 mg PO 1300 03/14/18 09/18/20 History lisinopril 40 mg tablet 40 mg PO DAILY 03/14/18 09/18/20 History metformin 500 mg tablet 850 mg PO BID 03/14/18 09/30/19 History Novolog PenFill U-100 Insulin 5 units SUBCUT TID 09/30/19 09/30/19 History insulin glargine U-300 conc 300 12 unit SUBCUT BID 03/13/22 03/13/22 History unit/mL (1.5 mL) subcutaneous pen (Toujeo SoloStar U-300 Insulin) Allergies Allergy/AdvReac Type Severity Reaction Status Date / Time No Known Drug Allergies Allergy Verified 03/12/22 23:39 Review of Systems Review of Systems ROS: Yes All systems reviewed with the patient and are negative except as otherwise documented Exam Vital Signs (past 8 hours): - 03/12/22 23:31 03/12/22 23:41 03/12/22 23:42 Temperature 98.2 F Pulse Rate 94 H 91 H 91 H Respiratory Rate 20 Blood Pressure 203/120 H Pulse Oximetry 99 99 99 Oxygen Delivery Method Room Air Room Air Room Air Oxygen Flow Rate 03/12/22 23:42 03/13/22 00:00 03/13/22 00:00 Temperature Pulse Rate 87 Respiratory Rate Blood Pressure 205/127 H 207/125 H Pulse Oximetry 98 Oxygen Delivery Method Room Air Oxygen Flow Rate 03/13/22 00:30 03/13/22 00:30 03/13/22 01:24 Temperature Pulse Rate 81 82 Respiratory Rate Blood Pressure 204/118 H 205/118 H Pulse Oximetry 95 Oxygen Delivery Method Room Air Oxygen Flow Rate 03/13/22 01:00 03/13/22 01:00 03/13/22 01:24 Temperature Pulse Rate 85 83 Respiratory Rate Blood Pressure 208/123 H Pulse Oximetry 99 98 Oxygen Delivery Method Room Air Oxygen Flow Rate 03/13/22 01:24 03/13/22 01:30 03/13/22 01:30 Temperature Pulse Rate 81 Respiratory Rate Blood Pressure 205/118 H 182/105 H Pulse Oximetry 98 Oxygen Delivery Method Oxygen Flow Rate 03/13/22 01:42 03/13/22 01:42 03/13/22 01:51 Temperature Pulse Rate 78 77 Respiratory Rate Blood Pressure 142/97 H 142/97 H Pulse Oximetry 97 Oxygen Delivery Method Room Air Oxygen Flow Rate 03/13/22 02:00 03/13/22 02:00 03/13/22 02:30 Temperature Pulse Rate 78 Respiratory Rate Blood Pressure 147/86 H 182/100 H Pulse Oximetry 97 Oxygen Delivery Method Room Air Oxygen Flow Rate 03/13/22 02:30 03/13/22 03:15 03/13/22 03:15 Temperature Pulse Rate 84 80 80 Respiratory Rate Blood Pressure 182/99 H 182/99 H Pulse Oximetry 97 Oxygen Delivery Method Room Air Oxygen Flow Rate 03/13/22 03:00 03/13/22 03:00 03/13/22 03:30 Temperature Pulse Rate 80 Respiratory Rate Blood Pressure 182/99 H 179/105 H Pulse Oximetry 97 Oxygen Delivery Method Room Air Oxygen Flow Rate 03/13/22 03:30 03/13/22 04:00 03/13/22 04:00 Temperature Pulse Rate 81 81 Respiratory Rate Blood Pressure 167/98 H Pulse Oximetry 97 96 Oxygen Delivery Method Room Air Room Air Oxygen Flow Rate 03/13/22 04:30 Temperature 98.6 F Pulse Rate 90 Respiratory Rate 19 Blood Pressure Pulse Oximetry 98 Oxygen Delivery Method Oxygen Flow Rate 0 Oxygen Delivery Method Room Air Oxygen Flow Rate 0 Narrative Exam Narrative: Gen: Alert, oriented, obese 51 y.o. Eurasian male, NAD HEENT: normocephalic, atraumatic, conjunctiva clear, sclera non-icteric, oral mucosa pink and moist Neck: supple, full ROM, no JVD, trachea is midline Resp: Lungs CTA, non-labored breathing CV: RRR, no murmur or rubs Abd: soft, non-tender, normoactive BTs Skin: no lesions or rashes, dry and intact Neuro: Alert and oriented X 4 w/no focal deficits. Speech clear and coherent. Extremities: Both feet are wrapped in compression wraps and he appears to have a bleeding wound on the lateral aspect of his left foot. Moves all 4 extremities, is ambulatory, negative Diego?s sign Psyche: normal mood and affect. Objective Labs 03/12/22 23:50 03/12/22 23:50 Labs: Laboratory Results - last 24 hr 03/12/22 03/12/22 03/12/22 23:50 23:50 23:50 WBC 10.9 RBC 5.64 Hgb 16.3 Hct 46.8 MCV 82.9 MCH 28.9 MCHC 34.8 RDW 13.8 Plt Count 295 Neut % (Auto) 76.5 H Lymph % (Auto) 14.7 L [place] % (Auto) 8.5 Eos % (Auto) 0.1 L Baso % (Auto) 0.2 Neut # (Auto) 8300 H Lymph # (Auto) 1600 [place] # (Auto) 900 Eos # (Auto) 0 Baso # (Auto) 0 Sodium 136 L Potassium 3.9 Chloride 95 L Carbon Dioxide 29 BUN 22 H Creatinine 0.99 Estimated GFR > 60 BUN/Creatinine Ratio 22.2 H Glucose 216 H Hemoglobin A1c 7.6 H Calcium 9.2 Total Bilirubin 1.5 H AST 35 ALT 38 Alkaline Phosphatase 61 Total Creatine Kinase CK-MB (CK-2) CK-MB (CK-2) Rel Index Troponin I Total Protein 8.7 H Albumin 4.6 Globulin 4.1 Albumin/Globulin Ratio 1.1 Lipase 125 03/13/22 01:42 WBC RBC Hgb Hct MCV MCH MCHC RDW Plt Count Neut % (Auto) Lymph % (Auto) [place] % (Auto) Eos % (Auto) Baso % (Auto) Neut # (Auto) Lymph # (Auto) [place] # (Auto) Eos # (Auto) Baso # (Auto) Sodium Potassium Chloride Carbon Dioxide BUN Creatinine Estimated GFR BUN/Creatinine Ratio Glucose Hemoglobin A1c Calcium Total Bilirubin AST ALT Alkaline Phosphatase Total Creatine Kinase 158 CK-MB (CK-2) 1.59 CK-MB (CK-2) Rel Index 1.0 L Troponin I < 0.012 Total Protein Albumin Globulin Albumin/Globulin Ratio Lipase Assessment & Plan Assessment & Plan narrative: Curtis Mari is placed into observation for treatment and management of diabetic gastroparesis. Diabetic gastroparesis, acute and present on admission * He will receive IV Reglan q.6 hours as needed Diabetes type 2 with an A1c of 7.6 improved over prior * Normally takes Toujeo 12 units b.i.d. and 10-12 units with meals of Humalog. Will continue Lantus 12 units b.i.d. and high dose correctional scale * Diabetic carb controlled diet advance as tolerated currently he is NPO Essential hypertension, poorly controlled currently due to nausea and vomiting * Continue home doses of amlodipine 10 mg, carvedilol 25 mg daily and lisinopril 40 mg p.o. daily * Substitute with IV metoprolol or IV enalapril if unable to take PO. Obesity, chronic * Patient to be counseled on healthy eating habits though it appears he has been attempting to moderate his eating Other independent historians: None Discussion of results, plan of care with independent HCP/other: ED provider Reviewed outside records: None VTE Prophylaxis: Wells risk score 0 Enoxaparin 40 mg subQ once daily Bilateral SCDs Patient is placed into observation as his stay is not expected to exceed 2 midnights. FEN: IV fluids: NS at 100 ml/hour, diet: NPO advance as tolerated, labs: CBC, C/BMP, liver enzymes, Mag, PT/INR Consultants None Social determinants of health: Long work hours interfering with access to PCP, Dispo: probable d/c to home Code status: Full code as discussed with the patient who identifies son, Vicente Iglesias as his surrogate and POA. Advanced care planning [ ] minutes. [X] I have utilized all available immediate resources to obtain, update, or review of the patient's current medications VTE Deep Vein Thrombosis/Pulmonary Embolism Present on Admission: No MIPS - Admit I confirm the patient?s Advance Care Plan is present, Code status is documented, Surrogate decision maker is in patient?s record: Yes MIPS - DC The patient has current or prior documentation of left ventricular ejection fraction (LVEF) less than 40%, or moderate or severely depressed left ventricular systolic function.: No COVID-19 COVID-19 status: Negative Result date/Date tested (Pos, Neg/Pending): 03/12/22 Time Spent With Patient Critical Care time: I spent a total of [] minutes of critical care time on this patient's care today; this time is exclusive of procedural time.
[2022-03-13 05:10] LABS: Alanine Aminotransferase 33 IU/L (<50); Albumin 3.9 g/dL (3.5-5.0); Albumin Globulin Ratio 1.1 (1.0-2.8); Alkaline Phosphatase 54 U/L (38-126); Aspartate Aminotransferase 28 IU/L (17-59); BUN Creatinine Ratio 22.9 (6-22); Bilirubin Total 1.1 mg/dL (0.2-1.3); Blood Urea Nitrogen 19 mg/dL (9-20); Calcium 8.6 mg/dL (8.4-10.2); Carbon Dioxide 27 mmol/L (22-32); Chloride 100 mmol/L (98-107); Estimated Glomerular Filt Rate > 60 mL/min (>60); Globulin 3.7 g/dL (1.7-4.1); Glucose 180 mg/dL (70-100); HEMOLYSIS < 15 (0-50); Magnesium 1.8 mg/dL (1.6-2.3); Potassium 3.7 mmol/L (3.4-5.1); Sodium 135 mmol/L (137-145); Total Protein 7.6 g/dL (6.3-8.2)
[2022-03-13] MEDS: SODIUM CHLORIDE 0.9% 1,000 ML 100 ML IV (05:35)
[2022-03-13] MEDS: ENALAPRILAT 2.5 MG/ 2 ML VIAL 0.625 MG IV (05:54)
[2022-03-13] MEDS: ENOXAPARIN 40 MG/0.4 ML SYRINGE SUBCUT (09:06)
[2022-03-13] MEDS: INSULIN LISPRO 100 UNIT/ML 3ML VIAL SUBCUT (09:14)
[2022-03-13] MEDS: INSULIN GLARGINE 100 UNIT/ML 3ML PEN 12 UNIT SUBCUT (09:14)
[2022-03-13] MEDS: lisinopriL 20 MG TABLET 40 MG PO (09:24)
[2022-03-13] MEDS: AMLODIPINE 5 MG TABLET 10 MG PO (09:24)
--- NOTE | 2022-03-13 10:32 | P.DS_ITS ---
History of Present Illness History of Present Illness Date Patient Seen: 03/13/22 Time Patient Seen: 10:32 Chief complaint: n/v, likely diabetic gastroparesis Narrative: Per admitting provider, Curtis Mari is a 51-year-old gentleman with history of diabetes poorly controlled, hypertension, diabetic foot infections with difficulty in accessing medical care who has recurrent episodes of nausea and vomiting for the past 3 days.? He was seen in the ED yesterday for similar complaints, felt better after being administered IV antiemetics and was discharged home.? He had some Zofran available at home but was not able to fill the prescription given yesterday.? States he did take 2 Zofran tablets at home however was unable to eat or drink once he was discharged.? He was suspecting his blood sugars were high into the high 200s. His goal is for his glucose to be between 180-200. He is convinced that this is because his blood sugars are significantly elevated however he has been appropriately using his insulin.? He unfortunately has not been able to take any of his oral hypertensive medications. He denies fever but does endorse having chills after vomiting, denies constipation but has had yellow colored diarrhea. 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 He did have COVID in January of 2022, but is currently denying any respiratory symptoms. CT of the abdomen and pelvis was unremarkable per their report. He is afebrile, blood pressure 171/103 heart rate 90 respiratory rate 19 oxygen saturation of 98% on room air he weighs 121 kg with a BMI of 37.4. CBC is unremarkable he does have a lymphopenia at 40% and a mild left shift 8300 neutrophils his A1c is 7.6, chemistries are within normal limits, troponin was normal, lipase is within normal limits and COVID-19 PCR done yesterday on 03/12 was negative. Discharge Providers Provider Date of admission: 03/13/22 03:39 Discharge Date: 03/13/22 Primary care physician: Toño Ovalles MD Discharge provider: Fred Blue DO Summary Hospital Course Discharge Diagnosis: Nausea and vomiting, improved Diabetes type 2 with an A1c of 7.6 improved over prior Essential hypertension, poorly controlled currently due to nausea and vomiting Obesity, chronic Hospital Course: Is a 51-year-old male with past medical history of type 2 diabetes, hypertension, and obesity who was admitted with nausea and vomiting. He was given IV fluids as well as anti nausea medications. He initially slow to respond and was admitted to the hospital, however shortly after arrival to the hospital for he had markedly improved symptoms and was tolerating fluids small amount of food. The patient wished to be discharged home, and given marked improvement in his symptoms unremarkable laboratory evaluation this seemed reasonable. Possible as nausea and vomiting was due to diabetic gastroparesis or nonspecific viral syndrome. He reports that he has anti nausea medications at home and does not require any prescriptions at this time. Hemoglobin A1c was 7.6%, changes to his home medications are recommended at the time of discharge. BP was elevated in the setting of him being unable to tolerate his medications. He will resume home medications after discharge, and follow up with PCP should his BP remain high unless he develops chest pain, shortness of breath, or other symptoms. Time Spent with Patient Time spent: Less than 30 minutes Exam Vital Signs (past 8 hours): - 03/13/22 03:15 03/13/22 03:15 03/13/22 03:00 Temperature Pulse Rate 80 80 Respiratory Rate Blood Pressure 182/99 H 182/99 H 182/99 H Pulse Oximetry Oxygen Delivery Method Oxygen Flow Rate 03/13/22 03:00 03/13/22 03:30 03/13/22 03:30 Temperature Pulse Rate 80 81 Respiratory Rate Blood Pressure 179/105 H Pulse Oximetry 97 97 Oxygen Delivery Method Room Air Room Air Oxygen Flow Rate 03/13/22 04:00 03/13/22 04:00 03/13/22 04:30 Temperature 98.6 F Pulse Rate 81 90 Respiratory Rate 19 Blood Pressure 167/98 H 171/103 H Pulse Oximetry 96 98 Oxygen Delivery Method Room Air Oxygen Flow Rate 0 03/13/22 05:55 03/13/22 06:17 03/13/22 07:00 Temperature 98.8 F Pulse Rate 79 82 Respiratory Rate 19 Blood Pressure 172/103 H 142/93 H 184/106 H Pulse Oximetry 97 Oxygen Delivery Method Oxygen Flow Rate 0 Oxygen Delivery Method Room Air Oxygen Flow Rate 0 Narrative Exam Narrative: Gen: Alert, oriented, obese 51 y.o. Eurasian male, NAD HEENT: normocephalic, atraumatic, conjunctiva clear, sclera non-icteric, oral mucosa pink and moist Neck: supple, full ROM, no JVD, trachea is midline Resp: Lungs CTA, non-labored breathing CV: RRR, no murmur or rubs Abd: soft, non-tender, normoactive BTs Extremities: Both feet are wrapped in compression wraps Psyche: normal mood and affect. Objective Labs 03/12/22 23:50 03/13/22 04:11 Labs: Laboratory Results - last 24 hr 03/12/22 03/12/22 03/12/22 23:50 23:50 23:50 WBC 10.9 RBC 5.64 Hgb 16.3 Hct 46.8 MCV 82.9 MCH 28.9 MCHC 34.8 RDW 13.8 Plt Count 295 Neut % (Auto) 76.5 H Lymph % (Auto) 14.7 L [place] % (Auto) 8.5 Eos % (Auto) 0.1 L Baso % (Auto) 0.2 Neut # (Auto) 8300 H Lymph # (Auto) 1600 [place] # (Auto) 900 Eos # (Auto) 0 Baso # (Auto) 0 Sodium 136 L Potassium 3.9 Chloride 95 L Carbon Dioxide 29 BUN 22 H Creatinine 0.99 Estimated GFR > 60 BUN/Creatinine Ratio 22.2 H Glucose 216 H Hemoglobin A1c 7.6 H Calcium 9.2 Magnesium Total Bilirubin 1.5 H AST 35 ALT 38 Alkaline Phosphatase 61 Total Creatine Kinase CK-MB (CK-2) CK-MB (CK-2) Rel Index Troponin I Total Protein 8.7 H Albumin 4.6 Globulin 4.1 Albumin/Globulin Ratio 1.1 Lipase 125 03/13/22 03/13/22 01:42 04:11 WBC RBC Hgb Hct MCV MCH MCHC RDW Plt Count Neut % (Auto) Lymph % (Auto) [place] % (Auto) Eos % (Auto) Baso % (Auto) Neut # (Auto) Lymph # (Auto) [place] # (Auto) Eos # (Auto) Baso # (Auto) Sodium 135 L Potassium 3.7 Chloride 100 Carbon Dioxide 27 BUN 19 Creatinine 0.83 Estimated GFR > 60 BUN/Creatinine Ratio 22.9 H Glucose 180 H Hemoglobin A1c Calcium 8.6 Magnesium 1.8 Total Bilirubin 1.1 AST 28 ALT 33 Alkaline Phosphatase 54 Total Creatine Kinase 158 CK-MB (CK-2) 1.59 CK-MB (CK-2) Rel Index 1.0 L Troponin I < 0.012 Total Protein 7.6 Albumin 3.9 Globulin 3.7 Albumin/Globulin Ratio 1.1 Lipase PFSH Medical History Congestive heart failure COVID Diabetes mellitus Hypertension Ulcer of left lower leg Ulcer of right leg Surgical History History of foot surgery Family History Father Myocardial infarction Mother Diabetes mellitus Brother Diabetes mellitus Social History household members: spouse and children Smoking Status: Former smoker alcohol intake: never Discharge Plan Discharge Plan Patient Disposition: Home Provider Discharge Comment: You were admitted to the hospital with nausea and vomiting. Your symptoms improved with medications. Continue to take anti-nausea pills as needed at home. Should nausea continue at a mild level, follow up with PCP for continued medication management and evaluation. If you're unable to eat or drink do not hesitate to return. Discharge orders & Medications Prescriptions: Continued metformin 500 mg Tablet 850 mg PO BID Rx Instructions: states he takes 850 mg carvedilol 25 mg Tablet 25 mg PO 1300 amlodipine 10 mg Tablet 10 mg PO DAILY lisinopril 40 mg Tablet 40 mg PO DAILY Novolog PenFill U-100 Insulin 12 - 15 units SUBCUT BID Rx Instructions: Takes before each meals. Toujeo SoloStar U-300 Insulin 300 unit/mL (1.5 mL) Insulin Pen 12 unit SUBCUT BID Follow up/Referrals: Toño Ovalles MD [Primary Care Provider] - Diet/Activity/Treatments Diet: Diet as Tolerated and Carb-consistent/Diabetic Activity: As tolerated Visit Report/Discharge Packet Instructions: DI for Dehydration -- Adult, Ondansetron Stand Alone Forms: Patient Portal/API, Stroke Signs & Symptoms Discharge Data Primary Care Provider: Toño Ovalles Attending Provider: Leona Short
--- NOTE | 2022-03-13 10:37 | CM.DANOTE ---
DCP: Case received, EMR reviewed and met with patient. Introduced self and role. Was able to obtain information regarding patient's baseline activity status prior to hospitalization. DCP assessment completed with information currently available. Patient is a 51 year old male who admitted early this morning to the care of the hospitalist team. PCP: Dr. Ovalles. Payer: confirmed: Juan C HACKETT. Patient came to the hospital via private vehicle secondary to nausea and vomiting. Patient has history of poorly controlled diabetes, HTN, diabetic foot infections. Notes indicate that patient had been here recently at the ER with similar symptoms, and was discharged home. Patient then returned with same symptoms. Patient was diagnosed with diabetic gastroparesis, DKA. Met with patient in his room. He is alert and oriented, laying in bed, notices dressings to his feet, some blood through the dressing on his left dressing. 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 He resides here iwth spouse, Raciel. He goes to Dr. Ng, at the wound clinic at [facility]. He drives, and is independent at baseline. Confirmed that primary provider is Dr. Ovalles. P: Patient is discharging home today, he will continue with his wound care visits. Dimple Quinones RN/Casino Change Attendant Discharge Planning/Care Management CM Discharge Assessment Start: 03/13/22 10:28 Freq: Status: Active Protocol: Document 03/13/22 10:29 (Rec: 03/13/22 10:36 [id number]) Discharge Planning Assessment Assigned [employer] Dimple Quinones RN/Casino Change Attendant Advance Directives? No Advance Directives on File No History Provided By Patient,Medical Record Prior Living Arrangements House Household Members spouse,children Type of transporation used prior to Drives own vehicle admit Independent with ADL's Yes Is patient alert and oriented? Yes Needs Assistance With Home Chores / Shopping Caregiver for Another No Barriers to Discharge No Comment He has supportive family members. Discharge Plan Home Transportation Arrangement Family Referrals Initiated None needed Additional Comment Patient is already established at wound clinic in [facility] Updated in Patient Room with Yes name and ext. 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
== END 2022-03-13 13:00 | disposition home or self-care (01) ==
LOC: ED 03-13 02:41 → AC 03-13 03:41
PROVIDERS: Admitting Provider Nurse Practitioner Family; Emergency Provider Emergency Medicine; PCP Family Medicine; Referring Provider Emergency Medicine; Visit Provider Nurse Practitioner Family
DX: R11.2 Nausea with vomiting, unspecified (principal); I10 Essential (primary) hypertension; E11.9 Type 2 diabetes mellitus without complications; Z79.4 Long term (current) use of insulin; E66.9 Obesity, unspecified
CPT/HCPCS: 36415; 74177; 80053; 82550; 82553; 82962; 83036; 83690; 83735; 84484; 85025; 93005; 96361; 96372; 96374; 96375; 96376; 99284; G0378; C9113; J0360; J1650; J1815; J2765; Q9967

== ENCOUNTER 2022-03-27 20:15 | Emergency (ER) | payer OTHER, SELFPAY ==
[2022-03-13 04:42] VITALS: BMI 37.3
[2022-03-27] VITALS (10 sets, daily range): BP systolic 152–210; BP diastolic 90–134; PULSE 78–100; RESP 14–18; TEMP 36.6; O2SAT 92–99
[2022-03-27] MEDS: ONDANSETRON 4 MG/2 ML INJ IV (20:51)
[2022-03-27] MEDS: SODIUM CHLORIDE 0.9% 1,000 ML 1000 ML IV (20:51)
[2022-03-27 21:08] LABS: Alanine Aminotransferase 36 IU/L (<50); Albumin 4.7 g/dL (3.5-5.0); Albumin Globulin Ratio 1.1 (1.0-2.8); Alkaline Phosphatase 64 U/L (38-126); Aspartate Aminotransferase 32 IU/L (17-59); BUN Creatinine Ratio 14.5 (6-22); Blood Urea Nitrogen 20 mg/dL (9-20); Calcium 9.3 mg/dL (8.4-10.2); Carbon Dioxide 31 mmol/L (22-32); Chloride 98 mmol/L (98-107); Estimated Glomerular Filt Rate > 60 mL/min (>60); Globulin 4.1 g/dL (1.7-4.1); Glucose 172 mg/dL (70-100); HEMOLYSIS < 15 (0-50); Lipase 107 U/L (23-300); Potassium 3.8 mmol/L (3.4-5.1); Sodium 141 mmol/L (137-145); Total Protein 8.8 g/dL (6.3-8.2)
[2022-03-27 21:10] LABS: Add Manual Diff / Slide Review NO; Basophils Absolute Auto 0 /uL (0-100); Basophils Percent Auto 0.3 % (0-2); Eosinophils Absolute Auto 100 /uL (0-450); Eosinophils Percent Auto 0.9 % (2-4); Hematocrit 45.1 % (41-53); Hemoglobin 15.5 g/dL (13.5-17.5); Lymphocytes Absolute Auto 1900 /uL (1100-4500); Lymphocytes Percent Auto 21.7 % (25-40); Mean Corpuscular HGB Conc 34.5 % (30-36); Mean Corpuscular Hemoglobin 28.7 PG (26-34); Mean Corpuscular Volume 83.4 fL (80-100); Monocytes Absolute Auto 600 /uL (0-900); Monocytes Percent Auto 7.1 % (3-14); Neutrophils Absolute Auto 6200 /uL (1500-7000); Platelet Count 311 X10^3/uL (150-400); Red Blood Cell Count 5.41 X10^6/uL (4.5-5.9); Red Cell Distribution Width 13.7 % (11.6-14.8); White Blood Cell Count 8.8 X10^3/uL (4.5-11.0)
--- NOTE | 2022-03-27 22:22 | ED.NAVMDI ---
HPI - Nausea/Vomiting/Diarrhea General Chief complaint: Nausea/Vomiting/Diarrhea Stated complaint: vomiting/weak Time Seen by Provider: 03/27/22 22:12 Source: patient Mode of arrival: Ambulatory History of Present Illness HPI Narrative: Patient brought self here from home for nausea and vomiting started again yesterday. Has been only will take his lisinopril today. Did take his blood pressure medications yesterday. Is on lisinopril Norvasc and carvedilol. Patient has had multiple ER visits for nausea and vomiting since June of last year. Likely developing gastroparesis. However has never had endoscopy of the stomach. Has not seen his primary care, Dr. Wade, in 8 months. Seen here multiple times this year already for nausea and vomiting. Zofran at home has not helped. Patient denies denies any chest pain or abdominal pain. No fever. No urinary complaints. Blood pressure noted,. Patient states does not feel nauseous now and desires to try his home blood pressure medications. Related Data Home Medications Medication Instructions Recorded Confirmed amlodipine 10 mg tablet 10 mg PO DAILY 03/14/18 03/13/22 carvedilol 25 mg tablet 25 mg PO 1300 03/14/18 03/13/22 lisinopril 40 mg tablet 40 mg PO DAILY 03/14/18 03/13/22 metformin 500 mg tablet 850 mg PO BID 03/14/18 03/13/22 Novolog PenFill U-100 Insulin 12 - 15 units SUBCUT BID 09/30/19 03/13/22 insulin glargine U-300 conc 300 12 unit SUBCUT BID 03/13/22 03/13/22 unit/mL (1.5 mL) subcutaneous pen (Toujeo SoloStar U-300 Insulin) Previous Rx's Medication Instructions Recorded promethazine 25 mg tablet 25 mg PO Q6H PRN nausea and 03/28/22 vomiting #14 tabs Allergies Allergy/AdvReac Type Severity Reaction Status Date / Time No Known Drug Allergies Allergy Verified 03/12/22 23:39 Review of Systems Review of Systems Narrative: GENERAL: negative chills, fatigue, malaise, fever, sweats. HEENT: negative sinus pain, ear pain, sore throat RESPIRATORY: negative dyspnea, cough CARDIOVASCULAR: negative chest pain, palpitations GASTROINTESTINAL: Positive nausea, vomiting, negative abdominal pain : negative dysuria, frequency, hematuria MUSCULOSKELETAL: negative muscle or bony pain SKIN: negative rash, skin lesions NEUROLOGIC: negative weakness, numbness ROS Unobtainable: All systems reviewed & are unremarkable except as noted in HPI and below Patient History Medical History Congestive heart failure COVID Diabetes mellitus Hypertension Ulcer of left lower leg Ulcer of right leg Surgical History History of foot surgery Family History Father Myocardial infarction Mother Diabetes mellitus Brother Diabetes mellitus Social History household members: spouse and children Smoking Status: Former smoker alcohol intake: never Smoking Status: Former smoker tobacco type: cigarettes alcohol intake frequency: holidays/special occasions only Substance Use Type: marijuana Exam Narrative Exam Narrative: GENERAL: in no distress, not toxic not dyspneic HEAD: Normocephalic. EYES: Pupils equal round ENT: Mucous membranes moist. NECK: Trachea midline. CARDIOVASCULAR: Regular rate and rhythm without murmurs RESPIRATORY: Clear to auscultation. Breath sounds equal bilaterally. No wheezes, rales, or rhonchi. GASTROINTESTINAL: Abdomen soft, non-tender, bowel sounds present no pain out of proportion to exam. No peritoneal signs EXTREMITIES: No gross deformities. BACK: No flank tenderness. NEURO: AOx4. SKIN: Warm and dry PSYCH: Not anxious, is cooperative Initial Vital Signs Initial Vital Signs: Vital Signs Temperature 98 F 03/27/22 20:28 Pulse Rate 100 H 03/27/22 20:28 Respiratory Rate 18 03/27/22 20:28 Blood Pressure 210/134 H 03/27/22 20:28 Pulse Oximetry 98 03/27/22 20:28 Oxygen Delivery Method 03/27/22 20:28 Course Orders Ordered: ED Orders 03/27/22 20:40 Complete Blood Count AUTO DIFF Stat Comprehensive Metabolic Panel Stat Lipase Stat Discontinued Medications Amlodipine Besylate (Amlodipine 5 Mg Tablet) 10 mg PO NOW ONE Stop: 03/27/22 22:22 Last Admin: 03/27/22 22:39 Dose: 10 mg Documented By: ALEK Carvedilol (Carvedilol 12.5 Mg Tablet) 25 mg PO NOW ONE Stop: 03/27/22 22:22 Last Admin: 03/27/22 22:40 Dose: 25 mg Documented By: ALEK Sodium Chloride (Normal Saline 0.9%) 1,000 mls @ 1,000 mls/hr IV BOLUS ONE Stop: 03/27/22 21:48 Last Infusion: 03/27/22 22:52 Dose: 0 mls/hr Documented By: Admin: 03/27/22 20:51 Dose: 1,000 mls/hr Documented By: RA Ondansetron HCl (Ondansetron 4 Mg/2 Ml Inj) 4 mg IV NOW PRN PRN Reason: Nausea And Vomiting Last Admin: 03/27/22 20:51 Dose: 4 mg Documented By: RA Vital Signs Vital signs: Vital Signs - 8 hr 03/27/22 20:28 03/27/22 21:17 03/27/22 21:30 Temperature 98 F Pulse Rate 100 H 96 H 82 Respiratory Rate 18 Blood Pressure 210/134 H Pulse Oximetry 98 99 96 Oxygen Delivery Method Room Air 03/27/22 22:00 03/27/22 22:30 03/27/22 22:42 Temperature Pulse Rate 82 86 92 H Respiratory Rate Blood Pressure Pulse Oximetry 96 96 98 Oxygen Delivery Method 03/27/22 22:42 03/27/22 23:00 03/27/22 23:01 Temperature Pulse Rate 83 Respiratory Rate Blood Pressure 199/110 H 157/92 H Pulse Oximetry 96 Oxygen Delivery Method 03/27/22 23:01 03/27/22 23:30 03/27/22 23:42 Temperature Pulse Rate 83 82 Respiratory Rate Blood Pressure 152/90 H Pulse Oximetry 96 96 Oxygen Delivery Method 03/27/22 23:42 Temperature Pulse Rate 78 Respiratory Rate 14 Blood Pressure Pulse Oximetry 92 Oxygen Delivery Method MDM - Nausea/Vomiting/Diarrhea Lab Data 03/27/22 20:40 03/27/22 20:40 Labs: Lab Results 03/27/22 03/27/22 Range/Units 20:40 20:40 WBC 8.8 (4.5-11.0) X10^3/uL RBC 5.41 (4.5-5.9) X10^6/uL Hgb 15.5 (13.5-17.5) g/dL Hct 45.1 (41-53) % MCV 83.4 (80-100) fL MCH 28.7 (26-34) PG MCHC 34.5 (30-36) % RDW 13.7 (11.6-14.8) % Plt Count 311 (150-400) X10^3/uL Neut % (Auto) 70.0 (50-75) % Lymph % (Auto) 21.7 L (25-40) % [place] % (Auto) 7.1 (3-14) % Eos % (Auto) 0.9 L (2-4) % Baso % (Auto) 0.3 (0-2) % Neut # (Auto) 6200 (4743-2396) /uL Lymph # (Auto) 1900 (8068-5018) /uL [place] # (Auto) 600 (0-900) /uL Eos # (Auto) 100 (0-450) /uL Baso # (Auto) 0 (0-100) /uL Sodium 141 (137-145) mmol/L Potassium 3.8 (3.4-5.1) mmol/L Chloride 98 (98-107) mmol/L Carbon Dioxide 31 (22-32) mmol/L BUN 20 (9-20) mg/dL Creatinine 1.38 H (0.66-1.25) mg/dL Estimated GFR > 60 (>60) mL/min BUN/Creatinine Ratio 14.5 (6-22) Glucose 172 H (70-100) mg/dL Calcium 9.3 (8.4-10.2) mg/dL Total Bilirubin 1.0 (0.2-1.3) mg/dL AST 32 (17-59) IU/L ALT 36 (<50) IU/L Alkaline Phosphatase 64 (38-126) U/L Total Protein 8.8 H (6.3-8.2) g/dL Albumin 4.7 (3.5-5.0) g/dL Globulin 4.1 (1.7-4.1) g/dL Albumin/Globulin Ratio 1.1 (1.0-2.8) Lipase 107 (23-300) U/L Point of Care Testing Glucose POC 164 MDM Narrative Medical decision making narrative: Patient brought self here from home for nausea and vomiting started again yesterday. Has been only will take his lisinopril today. Did take his blood pressure medications yesterday. Is on lisinopril Norvasc and carvedilol. Patient has had multiple ER visits for nausea and vomiting since June of last year. Likely developing gastroparesis. However has never had endoscopy of the stomach. Has not seen his primary care, Dr. Wade, in 8 months. Seen here multiple times this year already for nausea and vomiting. Zofran at home has not helped. Patient denies denies any chest pain or abdominal pain. No fever. No urinary complaints. Blood pressure noted,. Patient states does not feel nauseous now and desires to try his home blood pressure medications. After history and exam CBC CMP lipase have been ordered as well as home blood pressure medications MDM CC: Nausea and vomiting Complicating co-morbidities: Gastroparesis/diabetes Data collected from: Patient Medical records reviewed: ER visits here earlier this month Differential considered: Includes but not limited to gastroparesis/bowel obstruction/viral infection Exam documented above, pertinent findings include: Nontender abdomen Lab Test results independently reviewed as above. Pertinent findings: WBC 8.8, sodium 141 bicarb 31 BUN 20 creatinine 1.38 GFR greater than 60, AST 32 ALT 36 lipase 107 Treatments: Norvasc carvedilol Re-evaluations: Blood pressure 152/90 you after blood pressure medication. Patient resting comfortably. Reviewed results with patient again, he agrees with treatment plan. No other studies indicated. Agrees with prescription with promethazine. He will see his family doctor this week for re-evaluation and referral for a gastroenterology. Discussion: Appropriate for discharge home. Exam and laboratory studies are reassuring. No nausea and vomiting here. Blood pressure noted did improve after taking his blood pressure medication as he was not able to take them today because of vomiting without any abdominal pain chest pain back pain. No imaging or EKG or troponin indicated this time. This is the same symptoms he is had many times in the past months. Return precautions reviewed with him. He desires discharge home. Diagnosis: Hypertension/nausea and vomiting Discharge Plan Departure Patient Disposition: Home Clinical Impression: Nausea and vomiting, Hypertension Instructions: High Blood Pressure, DI for Vomiting -- Adult Activity Restrictions/Additional Instructions: Please see your family doctor this week for re-evaluation your blood pressure and vomiting. You will need referral to Gastroenterology Services for endoscopy of your stomach. Prescription for promethazine has been sent to your [facility] pharmacy in [place]. Please pick this up tomorrow. Continue home medications. Return if worse if any questions or concerns Prescriptions: New promethazine 25 mg tablet 25 mg PO Q6H PRN (Reason: nausea and vomiting) Qty: 14 0RF No Action metformin 500 mg Tablet 850 mg PO BID Rx Instructions: states he takes 850 mg carvedilol 25 mg Tablet 25 mg PO 1300 amlodipine 10 mg Tablet 10 mg PO DAILY lisinopril 40 mg Tablet 40 mg PO DAILY Novolog PenFill U-100 Insulin 12 - 15 units SUBCUT BID Rx Instructions: Takes before each meals. Touinezo SoloStar U-300 Insulin 300 unit/mL (1.5 mL) Insulin Pen 12 unit SUBCUT BID Referrals: Toño Ovalles MD [Primary Care Provider] - Stand Alone Forms: Patient Portal/API
[2022-03-27] MEDS: AMLODIPINE 5 MG TABLET 10 MG PO (22:39)
[2022-03-27] MEDS: carvediloL 12.5 MG TABLET 25 MG PO (22:40)
== END 2022-03-28 00:08 | disposition home or self-care (01) ==
PROVIDERS: Emergency Provider Emergency Medicine; PCP Family Medicine
DX: R11.2 Nausea with vomiting, unspecified (principal); I10 Essential (primary) hypertension; Z79.899 Other long term (current) drug therapy
CPT/HCPCS: 36415; 80053; 82962; 83690; 85025; 96361; 96374; 99284; J2405

== ENCOUNTER 2022-06-15 01:13 | Emergency (ER) | payer OTHER, SELFPAY ==
[2022-03-13 04:42] VITALS: BMI 37.3
[2022-06-15] VITALS (24 sets, daily range): BP systolic 139–224; BP diastolic 75–113; PULSE 74–93; RESP 18; TEMP 36.6; O2SAT 88–99; BMI 40.7
[2022-06-15] MEDS: ONDANSETRON 4 MG/2 ML INJ IV ×2 (01:38→06:21)
[2022-06-15 01:40] LABS: Add Manual Diff / Slide Review NO; Basophils Absolute Auto 0 /uL (0-100); Basophils Percent Auto 0.5 % (0-2); Eosinophils Absolute Auto 0 /uL (0-450); Eosinophils Percent Auto 0.4 % (2-4); Lymphocytes Absolute Auto 2100 /uL (1100-4500); Lymphocytes Percent Auto 20.3 % (25-40); Mean Corpuscular HGB Conc 34.1 % (30-36); Mean Corpuscular Hemoglobin 28.2 PG (26-34); Mean Corpuscular Volume 82.5 fL (80-100); Monocytes Absolute Auto 500 /uL (0-900); Monocytes Percent Auto 4.9 % (3-14); Neutrophils Absolute Auto 7800 /uL (1500-7000); Neutrophils Percent Auto 73.9 % (50-75); Platelet Count 301 X10^3/uL (150-400); Red Blood Cell Count 5.33 X10^6/uL (4.5-5.9); Red Cell Distribution Width 14.1 % (11.6-14.8); White Blood Cell Count 10.5 X10^3/uL (4.5-11.0)
[2022-06-15 01:41] LABS: Alanine Aminotransferase 37 IU/L (<50); Albumin 4.7 g/dL (3.5-5.0); Albumin Globulin Ratio 1.1 (1.0-2.8); Alkaline Phosphatase 58 U/L (38-126); Aspartate Aminotransferase 34 IU/L (17-59); BUN Creatinine Ratio 20.8 (6-22); Bilirubin Total 0.8 mg/dL (0.2-1.3); Blood Urea Nitrogen 26 mg/dL (9-20); Calcium 9.9 mg/dL (8.4-10.2); Carbon Dioxide 28 mmol/L (22-32); Chloride 99 mmol/L (98-107); Estimated Glomerular Filt Rate > 60 mL/min (>60); Globulin 4.2 g/dL (1.7-4.1); Glucose 181 mg/dL (70-100); HEMOLYSIS < 15 (0-50); Lipase 85 U/L (23-300); Potassium 4.3 mmol/L (3.4-5.1); Sodium 136 mmol/L (137-145); Total Protein 8.9 g/dL (6.3-8.2)
--- NOTE | 2022-06-15 05:59 | ED.GENADULT ---
HPI - General Adult General Chief complaint: Diabetic Problem Stated complaint: fatigue can't hold food down diabetic Time Seen by Provider: 06/15/22 05:58 Source: patient Mode of arrival: Ambulatory History of Present Illness HPI narrative: 51-year-old gentleman with history of poorly-controlled diabetes, hypertension, hyperlipidemia, chronic diabetic foot ulcers with peripheral neuropathy and recurrent episodes of nausea presents complaining of persistent nausea vomiting with epigastric pain. He complains of nausea for the last 2 days and is significantly fatigued. He does not describe cough, chest pain, fevers, orthopnea. He notes that his lower extremity wounds seem to be healing nicely he has been doing active wound care. Related Data Home Medications Medication Instructions Recorded Confirmed amlodipine 10 mg tablet 10 mg PO DAILY 03/14/18 03/13/22 carvedilol 25 mg tablet 25 mg PO 1300 03/14/18 03/13/22 lisinopril 40 mg tablet 40 mg PO DAILY 03/14/18 03/13/22 metformin 500 mg tablet 850 mg PO BID 03/14/18 03/13/22 Novolog PenFill U-100 Insulin 12 - 15 units SUBCUT BID 09/30/19 03/13/22 insulin glargine U-300 conc 300 12 unit SUBCUT BID 03/13/22 03/13/22 unit/mL (1.5 mL) subcutaneous pen (Toujeo SoloStar U-300 Insulin) Previous Rx's Medication Instructions Recorded promethazine 25 mg tablet 25 mg PO Q6H PRN nausea and 03/28/22 vomiting #14 tabs metoclopramide HCl 10 mg tablet 10 mg PO QACHS #120 tabs 06/15/22 ondansetron 4 mg disintegrating 4 mg PO Q8H PRN nausea and 06/15/22 tablet vomiting #30 tabs Allergies Allergy/AdvReac Type Severity Reaction Status Date / Time No Known Drug Allergies Allergy Verified 03/12/22 23:39 Review of Systems Review of Systems Narrative: Pertinent positive and negative findings as per HPI Patient History Medical History Congestive heart failure COVID Diabetes mellitus Hypertension Ulcer of left lower leg Ulcer of right leg Surgical History History of foot surgery Family History Father Myocardial infarction Mother Diabetes mellitus Brother Diabetes mellitus Social History household members: spouse and children Smoking Status: Former smoker alcohol intake: never Smoking Status: Former smoker tobacco type: cigarettes alcohol intake frequency: holidays/special occasions only Substance Use Type: marijuana Exam Initial Vital Signs Initial Vital Signs: Vital Signs Temperature 98 F 06/15/22 01:20 Pulse Rate 93 H 06/15/22 01:20 Respiratory Rate 18 06/15/22 01:20 Blood Pressure 224/113 H 06/15/22 01:20 Pulse Oximetry 98 06/15/22 01:20 Oxygen Delivery Method Room Air 06/15/22 01:20 General: Pale and fatigued appearing however in no acute distress. Able to give a complete and coherent history. HEENT: Moist mucous membranes, normal sclera with reactive pupils, Neck: No JVD, supple Respiratory: Lungs are clear to auscultation, no wheezing no rales no rhonchi. Full and symmetrical air movement Cardiac: Regular rate and rhythm no murmurs no bruits Abdomen: Soft, minor epigastric tenderness, good bowel tones, no flank pain Skin: Warm and dry, no rashes Neurologic: Grossly neurologically intact with no obvious asymmetries or abnormalities Extremities: Chronic lower extremity wounds are dressed in wound care dressings and are not undressed. Psych: Cooperative, appropriate insight and affect Course Orders Ordered: ED Orders 06/15/22 01:22 Complete Blood Count AUTO DIFF Stat Comprehensive Metabolic Panel Stat Lipase Stat 06/15/22 01:28 EKG-12 Lead Stat 06/15/22 06:20 Troponin I Stat Ondansetron HCl (Ondansetron 4 Mg Odt) 4 mg PO NOW PRN PRN Reason: Nausea And Vomiting Ondansetron HCl (Ondansetron 4 Mg/2 Ml Inj) 4 mg IV NOW PRN PRN Reason: Nausea And Vomiting Last Admin: 06/15/22 01:38 Dose: 4 mg Documented By: GC Discontinued Medications Sodium Chloride (Normal Saline 0.9%) 1,000 mls @ 1,000 mls/hr IV BOLUS ONE Stop: 06/15/22 07:04 Last Infusion: 06/15/22 07:58 Dose: 0 mls/hr Documented By: Admin: 06/15/22 06:21 Dose: 1,000 mls/hr Documented By: VANESA Ondansetron HCl (Ondansetron 4 Mg/2 Ml Inj) 4 mg IV NOW ONE Stop: 06/15/22 06:06 Last Admin: 06/15/22 06:21 Dose: 4 mg Documented By: VANESA Vital Signs Vital signs: Vital Signs - 8 hr 06/15/22 01:20 06/15/22 01:21 06/15/22 01:33 Temperature 98 F Pulse Rate 93 H 89 89 Respiratory Rate 18 Blood Pressure 224/113 H Pulse Oximetry 98 97 98 Oxygen Delivery Method Room Air 06/15/22 01:34 06/15/22 01:34 06/15/22 02:00 Temperature Pulse Rate 87 Respiratory Rate Blood Pressure 187/96 H 139/76 Pulse Oximetry 97 Oxygen Delivery Method 06/15/22 02:00 06/15/22 02:30 06/15/22 02:30 Temperature Pulse Rate 78 76 Respiratory Rate Blood Pressure 169/82 H Pulse Oximetry 93 95 Oxygen Delivery Method 06/15/22 03:00 06/15/22 03:00 06/15/22 03:30 Temperature Pulse Rate 74 74 Respiratory Rate Blood Pressure 150/76 H Pulse Oximetry 97 95 Oxygen Delivery Method 06/15/22 03:31 06/15/22 03:31 06/15/22 04:00 Temperature Pulse Rate 80 Respiratory Rate Blood Pressure 158/81 H 154/75 H Pulse Oximetry 98 Oxygen Delivery Method 06/15/22 04:00 06/15/22 04:30 06/15/22 04:30 Temperature Pulse Rate 75 77 Respiratory Rate Blood Pressure 158/83 H Pulse Oximetry 95 97 Oxygen Delivery Method 06/15/22 05:00 06/15/22 05:00 06/15/22 05:30 Temperature Pulse Rate 84 81 Respiratory Rate Blood Pressure 179/97 H Pulse Oximetry 95 95 Oxygen Delivery Method 06/15/22 05:31 06/15/22 05:31 06/15/22 05:53 Temperature Pulse Rate 86 Respiratory Rate Blood Pressure 160/92 H Pulse Oximetry 97 88 L Oxygen Delivery Method 06/15/22 06:00 06/15/22 06:01 06/15/22 06:30 Temperature Pulse Rate 87 Respiratory Rate Blood Pressure 168/91 H 205/108 H Pulse Oximetry 99 Oxygen Delivery Method 06/15/22 06:30 06/15/22 07:01 06/15/22 07:01 Temperature Pulse Rate 85 82 Respiratory Rate Blood Pressure 204/108 H Pulse Oximetry 97 97 Oxygen Delivery Method Medical Decision Making Lab Data 06/15/22 01:22 06/15/22 01:22 Labs: Lab Results 06/15/22 06/15/22 06/15/22 Range/Units 01:12 01:22 01:22 WBC 10.5 (4.5-11.0) X10^3/uL RBC 5.33 (4.5-5.9) X10^6/uL Hgb 15.0 (13.5-17.5) g/dL Hct 44.0 (41-53) % MCV 82.5 (80-100) fL MCH 28.2 (26-34) PG MCHC 34.1 (30-36) % RDW 14.1 (11.6-14.8) % Plt Count 301 (150-400) X10^3/uL Neut % (Auto) 73.9 (50-75) % Lymph % (Auto) 20.3 L (25-40) % [place] % (Auto) 4.9 (3-14) % Eos % (Auto) 0.4 L (2-4) % Baso % (Auto) 0.5 (0-2) % Neut # (Auto) 7800 H (2020-1162) /uL Lymph # (Auto) 2100 (8381-0892) /uL [place] # (Auto) 500 (0-900) /uL Eos # (Auto) 0 (0-450) /uL Baso # (Auto) 0 (0-100) /uL Sodium 136 L (137-145) mmol/L Potassium 4.3 (3.4-5.1) mmol/L Chloride 99 (98-107) mmol/L Carbon Dioxide 28 (22-32) mmol/L BUN 26 H (9-20) mg/dL Creatinine 1.25 (0.66-1.25) mg/dL Estimated GFR > 60 (>60) mL/min BUN/Creatinine Ratio 20.8 (6-22) Glucose 181 H (70-100) mg/dL Calcium 9.9 (8.4-10.2) mg/dL Total Bilirubin 0.8 (0.2-1.3) mg/dL AST 34 (17-59) IU/L ALT 37 (<50) IU/L Alkaline Phosphatase 58 (38-126) U/L Troponin I Cancelled Total Protein 8.9 H (6.3-8.2) g/dL Albumin 4.7 (3.5-5.0) g/dL Globulin 4.2 H (1.7-4.1) g/dL Albumin/Globulin Ratio 1.1 (1.0-2.8) Lipase 85 (23-300) U/L 06/15/22 Range/Units 06:20 WBC (4.5-11.0) X10^3/uL RBC (4.5-5.9) X10^6/uL Hgb (13.5-17.5) g/dL Hct (41-53) % MCV (80-100) fL MCH (26-34) PG MCHC (30-36) % RDW (11.6-14.8) % Plt Count (150-400) X10^3/uL Neut % (Auto) (50-75) % Lymph % (Auto) (25-40) % [place] % (Auto) (3-14) % Eos % (Auto) (2-4) % Baso % (Auto) (0-2) % Neut # (Auto) (9386-0747) /uL Lymph # (Auto) (6977-4035) /uL [place] # (Auto) (0-900) /uL Eos # (Auto) (0-450) /uL Baso # (Auto) (0-100) /uL Sodium (137-145) mmol/L Potassium (3.4-5.1) mmol/L Chloride (98-107) mmol/L Carbon Dioxide (22-32) mmol/L BUN (9-20) mg/dL Creatinine (0.66-1.25) mg/dL Estimated GFR (>60) mL/min BUN/Creatinine Ratio (6-22) Glucose (70-100) mg/dL Calcium (8.4-10.2) mg/dL Total Bilirubin (0.2-1.3) mg/dL AST (17-59) IU/L ALT (<50) IU/L Alkaline Phosphatase (38-126) U/L Troponin I < 0.012 Total Protein (6.3-8.2) g/dL Albumin (3.5-5.0) g/dL Globulin (1.7-4.1) g/dL Albumin/Globulin Ratio (1.0-2.8) Lipase (23-300) U/L MDM Narrative Medical decision making narrative: CC: Nausea vomiting fatigue. 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 Medical records reviewed: Discharge summary from hospital admission March of this year with similar complaints related to diabetic gastroparesis. Differential considered: Diabetic gastroparesis, viral syndrome, acute coronary syndrome, bowel obstruction, perforating ulcer, gastritis, cholecystitis Exam documented above, pertinent findings include: Relatively benign exam. No significant tenderness and definitely no evidence of acute surgical abdomen with palpation. His lower extremity chronic wounds do not appear to be superinfection. He is not in diabetic ketoacidosis or HHS. Lab Test results independently reviewed as above. Pertinent findings: CBC is unremarkable, no leukocytosis and no significant anemia Chemistries are unremarkable with normal renal function at 1.25 glucoses 181 no abnormal LFTs Troponin is undetectable after 2 days of symptoms Independently reviewed EKG sinus rhythm at a rate of 78. QRS is slightly widened with nonspecific intraventricular conduction delay. No acute ischemic changes. Treatments: A L of fluids, parenteral ondansetron Discussion: 51-year-old gentleman with worsening diabetes and complicated social situation. No evidence GI bleeding, acute coronary syndrome, DKA or similar findings, acute renal failure or liver abnormalities. After fluids and Zofran he is feeling somewhat better. Talked about using Reglan on a scheduled basis to help with his nausea and likely developing gastroparesis. We will give him his morning medications for his chronically elevated blood pressure. At this point he is feeling somewhat better and will be safe for discharge home. Questions are answered. Encouraged to return if he has worsening symptoms. Discharge Plan Departure Patient Disposition: Home Clinical Impression: Diabetic gastroparesis Nausea and vomiting Qualifiers: Vomiting type: unspecified Qualified Code(s): R11.2 - Nausea with vomiting, unspecified Diabetes Qualifiers: Diabetes mellitus type: type 2 Diabetes mellitus senior living insulin use: with senior living use Hypertension Qualifiers: Hypertension type: primary hypertension Qualified Code(s): I10 - Essential (primary) hypertension Instructions: DI for Gastroparesis Activity Restrictions/Additional Instructions: Thank you for coming in today Your workup was actually quite reassuring. I am not seeing evidence of your diabetes out of control, there is no obvious signs of infection, no acute kidney failure liver failure or heart failure. No evidence of heart attack or heart attack like syndrome. This may be a viral syndrome that is causing your vomiting but it may also be related to diabetic gastroparesis. Either way, using nausea medicine to help is going to be appropriate. I am going to suggest that you try metoclopramide/Reglan 10 mg up to every 6 hours to help with nausea and diabetic gastroparesis. You can take this to prevent nausea rather than to just treat it. You can also continue to use the ondansetron for nausea uncontrolled with the Reglan. Prescriptions for the metoclopramide as well as the ondansetron have been electronically transmitted to [facility] I have given you your morning blood pressure medications but you need to do your insulin when you get home. Please follow-up with your primary care doctor If you find that you are getting worse or develop any new symptoms, please feel free to return to the emergency department for further evaluation. Prescriptions: New metoclopramide HCl 10 mg tablet 10 mg PO QACHS Qty: 120 0RF ondansetron 4 mg tablet,disintegrating 4 mg PO Q8H PRN (Reason: nausea and vomiting) Qty: 30 1RF No Action metformin 500 mg Tablet 850 mg PO BID Rx Instructions: states he takes 850 mg carvedilol 25 mg Tablet 25 mg PO 1300 amlodipine 10 mg Tablet 10 mg PO DAILY lisinopril 40 mg Tablet 40 mg PO DAILY Novolog PenFill U-100 Insulin 12 - 15 units SUBCUT BID Rx Instructions: Takes before each meals. Touinezo SoloStar U-300 Insulin 300 unit/mL (1.5 mL) Insulin Pen 12 unit SUBCUT BID promethazine 25 mg tablet 25 mg PO Q6H PRN (Reason: nausea and vomiting) Qty: 14 0RF Referrals: Toño Ovalles MD [Primary Care Provider] - Stand Alone Forms: Patient Portal/API
[2022-06-15] MEDS: SODIUM CHLORIDE 0.9% 1,000 ML 1000 ML IV (06:21)
[2022-06-15 07:00] LABS: Troponin I < 0.012 ng/mL (0.01-0.034)
[2022-06-15] MEDS: carvediloL 12.5 MG TABLET 25 MG PO (08:32)
[2022-06-15] MEDS: lisinopriL 20 MG TABLET 40 MG PO (08:33)
[2022-06-15] MEDS: METOCLOPRAMIDE HCL 5 MG TABLET 10 MG PO (08:33)
== END 2022-06-15 09:11 | disposition home or self-care (01) ==
PROVIDERS: Emergency Provider Emergency Medicine; PCP Family Medicine
DX: E11.43 Type 2 diabetes mellitus with diabetic autonomic (poly)neuropathy (principal); K31.84 Gastroparesis; Z79.4 Long term (current) use of insulin; R11.2 Nausea with vomiting, unspecified; I10 Essential (primary) hypertension; R10.9 Unspecified abdominal pain
CPT/HCPCS: 36415; 80053; 83690; 84484; 85025; 93005; 96361; 96374; 96376; 99284; J2405

== ENCOUNTER 2022-07-08 00:40 | Emergency (ER) | payer OTHER, SELFPAY ==
[2022-03-13 04:42] VITALS: BMI 37.3
[2022-07-08 00:49] VITALS: BP 191/111; PULSE 98; RESP 20; TEMP 36.5; O2SAT 99
[2022-07-08] MEDS: ONDANSETRON 4 MG/2 ML INJ IV (01:09)
[2022-07-08] MEDS: SODIUM CHLORIDE 0.9% 1,000 ML 1000 ML IV (01:09)
--- NOTE | 2022-07-08 01:16 | ED.NAVMDI ---
HPI - Nausea/Vomiting/Diarrhea General Chief complaint: Nausea/Vomiting/Diarrhea Stated complaint: fatigue, vomiting since Time Seen by Provider: 07/08/22 00:56 Source: patient Mode of arrival: Ambulatory History of Present Illness HPI Narrative: patient is a 52-year-old male. His an insulin-dependent diabetic. Is here for evaluation of fatigue and vomiting for the past couple days. He does have nausea medication at home but he states it was not working for him. No diarrhea. Some abdominal pain related to the vomiting. No fevers. Related Data Home Medications Medication Instructions Recorded Confirmed amlodipine 10 mg tablet 10 mg PO DAILY 03/14/18 03/13/22 carvedilol 25 mg tablet 25 mg PO 1300 03/14/18 03/13/22 lisinopril 40 mg tablet 40 mg PO DAILY 03/14/18 03/13/22 metformin 500 mg tablet 850 mg PO BID 03/14/18 03/13/22 Novolog PenFill U-100 Insulin 12 - 15 units SUBCUT BID 09/30/19 03/13/22 insulin glargine U-300 conc 300 12 unit SUBCUT BID 03/13/22 03/13/22 unit/mL (1.5 mL) subcutaneous pen (Toujeo SoloStar U-300 Insulin) Previous Rx's Medication Instructions Recorded promethazine 25 mg tablet 25 mg PO Q6H PRN nausea and 03/28/22 vomiting #14 tabs metoclopramide HCl 10 mg tablet 10 mg PO QACHS #120 tabs 06/15/22 ondansetron 4 mg disintegrating 4 mg PO Q8H PRN nausea and 06/15/22 tablet vomiting #30 tabs Allergies Allergy/AdvReac Type Severity Reaction Status Date / Time No Known Drug Allergies Allergy Verified 03/12/22 23:39 Review of Systems Cardiovascular Comments: No chest pain Respiratory Comments: No shortness of breath Gastrointestinal Gastrointestinal: Reports system reviewed and no additional complaints, except as documented Musculoskeletal Musculoskeletal: Reports system reviewed and no additional complaints, except as documented Integumentary/Breasts Skin/Breast: Reports system reviewed and no additional complaints, except as documented Patient History Medical History Congestive heart failure COVID Diabetes mellitus Hypertension Ulcer of left lower leg Ulcer of right leg Surgical History History of foot surgery Family History Father Myocardial infarction Mother Diabetes mellitus Brother Diabetes mellitus Social History household members: spouse and children Smoking Status: Former smoker alcohol intake: never Smoking Status: Former smoker tobacco type: cigarettes alcohol intake frequency: holidays/special occasions only Substance Use Type: marijuana Exam Initial Vital Signs Initial Vital Signs: Vital Signs Temperature 97.7 F 07/08/22 00:49 Pulse Rate 98 H 07/08/22 00:49 Respiratory Rate 20 07/08/22 00:49 Blood Pressure 191/111 H 07/08/22 00:49 Pulse Oximetry 99 07/08/22 00:49 Oxygen Delivery Method Room Air 07/08/22 00:49 Const General: cooperative and comfortable HENMT Head: normal to inspection and normocephalic Resp Effort & Inspection: normal respiratory effort Auscultation: clear to auscultation bilaterally Cardio Rate: regular rate Rhythm: regular rhythm GI Inspection: normal to inspection Neuro General: patient alert and patient awake Course Orders Ordered: Discontinued Medications Sodium Chloride (Normal Saline 0.9%) 1,000 mls @ 1,000 mls/hr IV BOLUS ONE Stop: 07/08/22 01:56 Last Infusion: 07/08/22 02:16 Dose: 0 mls/hr Documented By: Admin: 07/08/22 01:09 Dose: 1,000 mls/hr Documented By: BERTA Ondansetron HCl (Ondansetron 4 Mg/2 Ml Inj) 4 mg IV NOW ONE Stop: 07/08/22 00:58 Last Admin: 07/08/22 01:09 Dose: 4 mg Documented By: BERTA Vital Signs Vital signs: Vital Signs - 8 hr 07/08/22 00:49 07/08/22 02:14 Temperature 97.7 F Pulse Rate 98 H 73 Respiratory Rate 20 20 Blood Pressure 191/111 H 154/80 H Pulse Oximetry 99 98 Oxygen Delivery Method Room Air Room Air MDM - Nausea/Vomiting/Diarrhea MDM Narrative Medical decision making narrative: After fluids and medications patient states he was feeling much better. He was able to tolerate oral intake. Was able to stand at bedside. Will discharge patient home and have him take the nausea medication as needed. He was given return precautions. He expressed understanding and agreement. Discharge Plan Departure Patient Disposition: Home Clinical Impression: Nausea and vomiting Instructions: Nausea and Vomiting-Adult Activity Restrictions/Additional Instructions: Recommend that you continue to take all your medications as directed. Patient with a chore increasing your fluid intake by drinking small amounts more frequently. Use the nausea medication as needed. Return to the emergency department for new or worsening symptoms. Prescriptions: No Action metformin 500 mg Tablet 850 mg PO BID Rx Instructions: states he takes 850 mg carvedilol 25 mg Tablet 25 mg PO 1300 amlodipine 10 mg Tablet 10 mg PO DAILY lisinopril 40 mg Tablet 40 mg PO DAILY Novolog PenFill U-100 Insulin 12 - 15 units SUBCUT BID Rx Instructions: Takes before each meals. Toujeo SoloStar U-300 Insulin 300 unit/mL (1.5 mL) Insulin Pen 12 unit SUBCUT BID promethazine 25 mg tablet 25 mg PO Q6H PRN (Reason: nausea and vomiting) Qty: 14 0RF metoclopramide HCl 10 mg tablet 10 mg PO QACHS Qty: 120 0RF ondansetron 4 mg tablet,disintegrating 4 mg PO Q8H PRN (Reason: nausea and vomiting) Qty: 30 1RF Referrals: Toño Ovalles MD [Primary Care Provider] - Stand Alone Forms: Patient Portal/API
[2022-07-08 02:14] VITALS: BP 154/80; PULSE 73; RESP 20; O2SAT 98
[2022-07-08 04:06] VITALS: BP 172/99; PULSE 92; RESP 20; O2SAT 98
== END 2022-07-08 04:06 | disposition home or self-care (01) ==
PROVIDERS: Emergency Provider Emergency Medicine; PCP Family Medicine
DX: R11.2 Nausea with vomiting, unspecified (principal); Z79.899 Other long term (current) drug therapy
CPT/HCPCS: 36415; 96361; 96374; 99284; J2405

== ENCOUNTER 2022-07-13 12:50 | Emergency (ER) | payer OTHER, SELFPAY ==
[2022-03-13 04:42] VITALS: BMI 37.3
[2022-07-13] VITALS (8 sets, daily range): BP systolic 115–188; BP diastolic 68–115; PULSE 60–74; RESP 11–19; TEMP 37.1; O2SAT 95–99; BMI 36.2
[2022-07-13] MEDS: ONDANSETRON 4 MG/2 ML INJ IV (13:15)
--- NOTE | 2022-07-13 13:50 | ED.GENADULT ---
HPI - General Adult General Chief complaint: Diabetic Problem Stated complaint: fatigue/dizzy/V T-5 Time Seen by Provider: 07/13/22 13:49 Source: patient Mode of arrival: Ambulatory History of Present Illness HPI narrative: 52-year-old male insulin-dependent diabetic presents with a few days of nausea, vomiting and weakness. He is known well to myself and the facility and presents relatively frequently under similar circumstances. He denies any change in medications or diet. He is had no fever or chills. He states that he gets a bit lightheaded upon standing and has had a relatively poor appetite. He he is fatigued and feels a bit under the weather. He denies headache or blurred vision. He has no chest pain, shortness of breath or cough. He denies abdominal pain, diarrhea or constipation Related Data Home Medications Medication Instructions Recorded Confirmed amlodipine 10 mg tablet 10 mg PO DAILY 03/14/18 03/13/22 carvedilol 25 mg tablet 25 mg PO 1300 03/14/18 03/13/22 lisinopril 40 mg tablet 40 mg PO DAILY 03/14/18 03/13/22 metformin 500 mg tablet 850 mg PO BID 03/14/18 03/13/22 Novolog PenFill U-100 Insulin 12 - 15 units SUBCUT BID 09/30/19 03/13/22 insulin glargine U-300 conc 300 12 unit SUBCUT BID 03/13/22 03/13/22 unit/mL (1.5 mL) subcutaneous pen (Toujeo SoloStar U-300 Insulin) Previous Rx's Medication Instructions Recorded promethazine 25 mg tablet 25 mg PO Q6H PRN nausea and 03/28/22 vomiting #14 tabs metoclopramide HCl 10 mg tablet 10 mg PO QACHS #120 tabs 06/15/22 ondansetron 4 mg disintegrating 4 mg PO Q8H PRN nausea and 06/15/22 tablet vomiting #30 tabs Allergies Allergy/AdvReac Type Severity Reaction Status Date / Time No Known Drug Allergies Allergy Verified 07/13/22 13:04 Review of Systems Review of Systems Narrative: GENERAL: Denies chills, fatigue, malaise, fever, sweats. HEENT: Denies sinus pain, ear pain, sore throat, difficulty swallowing, dizziness. RESPIRATORY: Denies dyspnea, cough, wheezing, hemoptysis, sputum. CARDIOVASCULAR: Denies chest pain, palpitations, orthopnea, edema, GASTROINTESTINAL: See HPI : Denies dysuria, frequency, incontinence, hematuria, urinary retention. MUSCULOSKELETAL: denies weakness, joint pain, or bony pain SKIN: Denies rash, skin lesions, or other NEUROLOGIC: Denies weakness, headache, numbness, change in speech, confusion, seizures, incoordination. PSYCHIATRIC: No concerning psychosocial issues. 12 point review of systems is negative except for those stated above Patient History Medical History Congestive heart failure COVID Diabetes mellitus Hypertension Ulcer of left lower leg Ulcer of right leg Surgical History History of foot surgery Family History Father Myocardial infarction Mother Diabetes mellitus Brother Diabetes mellitus Social History household members: spouse and children Smoking Status: Former smoker alcohol intake: never Smoking Status: Former smoker tobacco type: cigarettes alcohol intake frequency: holidays/special occasions only Substance Use Type: marijuana Exam Narrative Exam Narrative: GENERAL: [52] year old patient appears stated age. Well-developed patient, in mild distress. HEAD: Atraumatic. Normocephalic. EYES: Pupils equal round and reactive. Extraocular motions intact. No scleral icterus. No injection or drainage. ENT: Nose without bleeding, purulent drainage. Throat without erythema, tonsillar hypertrophy or exudate. Airway patent. NECK: Trachea midline. Non tender CARDIOVASCULAR: Regular rate and rhythm without murmurs, gallops, or rubs. RESPIRATORY: Clear to auscultation. Breath sounds equal bilaterally. No wheezes, rales, or rhonchi. GASTROINTESTINAL: Abdomen soft, non-tender, nondistended. EXTREMITIES: No edema or joint tenderness. BACK: Nontender without deformity or crepitance. No flank tenderness. NEURO: AOx3. SKIN: No rash or erythema of visible areas Initial Vital Signs Initial Vital Signs: Vital Signs Temperature 98.8 F 07/13/22 12:58 Pulse Rate 74 07/13/22 12:58 Respiratory Rate 18 07/13/22 12:58 Blood Pressure 188/115 H 06/08/23 12:58 Pulse Oximetry 99 07/13/22 12:58 Oxygen Delivery Method Room Air 07/13/22 12:58 Course Orders Ordered: Discontinued Medications Sodium Chloride (Normal Saline 0.9%) 1,000 mls @ 1,000 mls/hr IV BOLUS ONE Stop: 07/13/22 14:49 Last Infusion: 07/13/22 14:59 Dose: 0 mls/hr Documented By: Admin: 07/13/22 14:08 Dose: 1,000 mls/hr Documented By: BRIT Ondansetron HCl (Ondansetron 4 Mg/2 Ml Inj) 4 mg IV NOW PRN PRN Reason: Nausea And Vomiting Last Admin: 07/13/22 13:15 Dose: 4 mg Documented By: MARCY Ondansetron HCl (Ondansetron 4 Mg/2 Ml Inj) 4 mg IV NOW ONE Stop: 07/13/22 13:51 Last Admin: 07/13/22 14:12 Dose: Not Given Documented By: BRIT Reevaluation(s) Reevaluation #1: Patient feeling much better after above-stated therapies Vital Signs Vital signs: Vital Signs - 8 hr 07/13/22 12:58 07/13/22 14:05 07/13/22 14:07 Temperature 98.8 F Pulse Rate 74 65 Respiratory Rate 18 11 L Blood Pressure 188/115 H 158/91 H Pulse Oximetry 99 98 Oxygen Delivery Method Room Air 07/13/22 14:07 07/13/22 14:30 07/13/22 14:30 Temperature Pulse Rate 64 60 Respiratory Rate 13 19 Blood Pressure 121/71 Pulse Oximetry 98 97 Oxygen Delivery Method Room Air 07/13/22 15:00 07/13/22 15:00 Temperature Pulse Rate 62 Respiratory Rate 16 Blood Pressure 115/68 Pulse Oximetry 96 Oxygen Delivery Method Room Air Medical Decision Making Lab Data 07/13/22 13:10 07/13/22 13:10 Labs: Lab Results 07/13/22 07/13/22 07/13/22 Range/Units 13:10 13:10 13:10 WBC 10.1 (4.5-11.0) X10^3/uL RBC 5.02 (4.5-5.9) X10^6/uL Hgb 14.4 (13.5-17.5) g/dL Hct 41.4 (41-53) % MCV 82.4 (80-100) fL MCH 28.6 (26-34) PG MCHC 34.7 (30-36) % RDW 13.9 (11.6-14.8) % Plt Count 318 (150-400) X10^3/uL Neut % (Auto) 66.3 (50-75) % Lymph % (Auto) 24.0 L (25-40) % [place] % (Auto) 6.8 (3-14) % Eos % (Auto) 2.1 (2-4) % Baso % (Auto) 0.8 (0-2) % Neut # (Auto) 6700 (5286-1604) /uL Lymph # (Auto) 2400 (9639-1212) /uL [place] # (Auto) 700 (0-900) /uL Eos # (Auto) 200 (0-450) /uL Baso # (Auto) 100 (0-100) /uL VBG pH (7.33-7.43) VBG pCO2 (45-50) mmHg VBG pO2 (35-45) mmHg VBG HCO3 (24-28) mmol/L VBG Total CO2 (24-29) mmol/L VBG O2 Saturation (70-75) % VBG Base Excess (0-4) mmol/L FiO2 Sodium 137 (137-145) mmol/L Potassium 5.3 H (3.4-5.1) mmol/L Chloride 100 (98-107) mmol/L Carbon Dioxide 28 (22-32) mmol/L BUN 25 H (9-20) mg/dL Creatinine 1.34 H (0.66-1.25) mg/dL Estimated GFR > 60 (>60) mL/min BUN/Creatinine Ratio 18.7 (6-22) Glucose 93 (70-100) mg/dL Calcium 9.7 (8.4-10.2) mg/dL Total Bilirubin 1.2 (0.2-1.3) mg/dL AST 41 (17-59) IU/L ALT 33 (<50) IU/L Alkaline Phosphatase 46 (38-126) U/L Total Creatine Kinase 152 (55-170) U/L CK-MB (CK-2) TNP CK-MB (CK-2) Rel Index TNP Troponin I < 0.012 (0.01-0.034) ng/mL Total Protein 8.8 H (6.3-8.2) g/dL Albumin 4.5 (3.5-5.0) g/dL Globulin 4.3 H (1.7-4.1) g/dL Albumin/Globulin Ratio 1.0 (1.0-2.8) 07/13/22 Range/Units 14:04 WBC (4.5-11.0) X10^3/uL RBC (4.5-5.9) X10^6/uL Hgb (13.5-17.5) g/dL Hct (41-53) % MCV (80-100) fL MCH (26-34) PG MCHC (30-36) % RDW (11.6-14.8) % Plt Count (150-400) X10^3/uL Neut % (Auto) (50-75) % Lymph % (Auto) (25-40) % [place] % (Auto) (3-14) % Eos % (Auto) (2-4) % Baso % (Auto) (0-2) % Neut # (Auto) (0704-3102) /uL Lymph # (Auto) (9317-9572) /uL [place] # (Auto) (0-900) /uL Eos # (Auto) (0-450) /uL Baso # (Auto) (0-100) /uL VBG pH 7.39 (7.33-7.43) VBG pCO2 47.4 (45-50) mmHg VBG pO2 26 L (35-45) mmHg VBG HCO3 29 H (24-28) mmol/L VBG Total CO2 30 H (24-29) mmol/L VBG O2 Saturation 46 L (70-75) % VBG Base Excess 3.0 (0-4) mmol/L FiO2 21 Sodium (137-145) mmol/L Potassium (3.4-5.1) mmol/L Chloride (98-107) mmol/L Carbon Dioxide (22-32) mmol/L BUN (9-20) mg/dL Creatinine (0.66-1.25) mg/dL Estimated GFR (>60) mL/min BUN/Creatinine Ratio (6-22) Glucose (70-100) mg/dL Calcium (8.4-10.2) mg/dL Total Bilirubin (0.2-1.3) mg/dL AST (17-59) IU/L ALT (<50) IU/L Alkaline Phosphatase (38-126) U/L Total Creatine Kinase (55-170) U/L CK-MB (CK-2) CK-MB (CK-2) Rel Index Troponin I (0.01-0.034) ng/mL Total Protein (6.3-8.2) g/dL Albumin (3.5-5.0) g/dL Globulin (1.7-4.1) g/dL Albumin/Globulin Ratio (1.0-2.8) Point of Care Testing Glucose POC 96 Point of care testing: Point of Care Testing Glucose POC 96 MDM Narrative Medical decision making narrative: [52] year old patient presents with nausea, vomiting, fatigue and dizziness Multiple etiologies for patient's symptoms considered including, but not limited to: [Diabetic emergency, dehydration, electrolyte abnormality versus other] Prior Charts reviewed in our EMR Primary Historian: patient Labs reviewed and interpreted by myself: No leukocytosis, left shift or signs of anemia, electrolytes, renal function, troponin all within normal. Initially POC glucose was low, after nausea controlled and his ability to tolerate orals it was rechecked and bumped up to the upper 90s. VBG notes a pH of 7.39 and bicarb of 29, no signs of DKA Patient's symptoms improved over duration of stay with above-stated therapies. He had some evidence of possible dehydration, felt much better after the therapy stated above. Labs reassuring, blood glucose improved after he started tolerating orals, no longer feeling dizzy or lightheaded. Findings and discharge diagnosis discussed with patient/family followed by verbalization of understanding Return precautions discussed with patient/family whom verbalize understanding of diagnosis and plan Discharge Plan Departure Patient Disposition: Home Clinical Impression: Nausea and vomiting, Hypoglycemia Instructions: DI for Hypoglycemia, DI for Vomiting -- Adult Activity Restrictions/Additional Instructions: *You have been diagnosed with [vomiting and hypoglycemia] *What to do: *Please continue to take your regular medications as directed. *Please follow up with your primary care provider in 2-3 days, call for an appointment. Let them know you were seen in the Emergency Department and that we ask that you be seen in follow up. We will electronically transmit a record of today's note if your PCP is in our system *Return to Emergency Department if you should have any new, worsening or concerning symptoms, such as [fever greater than 101 F, shaking chills, worsening pain, persistent vomiting or other bothersome symptoms] Prescriptions: No Action metformin 500 mg Tablet 850 mg PO BID Rx Instructions: states he takes 850 mg carvedilol 25 mg Tablet 25 mg PO 1300 amlodipine 10 mg Tablet 10 mg PO DAILY lisinopril 40 mg Tablet 40 mg PO DAILY Novolog PenFill U-100 Insulin 12 - 15 units SUBCUT BID Rx Instructions: Takes before each meals. Toujeo SoloStar U-300 Insulin 300 unit/mL (1.5 mL) Insulin Pen 12 unit SUBCUT BID promethazine 25 mg tablet 25 mg PO Q6H PRN (Reason: nausea and vomiting) Qty: 14 0RF metoclopramide HCl 10 mg tablet 10 mg PO QACHS Qty: 120 0RF ondansetron 4 mg tablet,disintegrating 4 mg PO Q8H PRN (Reason: nausea and vomiting) Qty: 30 1RF Referrals: Toño Ovalles MD [Primary Care Provider] - Stand Alone Forms: Patient Portal/API
[2022-07-13 13:59] LABS: Add Manual Diff / Slide Review NO; Basophils Absolute Auto 100 /uL (0-100); Basophils Percent Auto 0.8 % (0-2); Eosinophils Absolute Auto 200 /uL (0-450); Eosinophils Percent Auto 2.1 % (2-4); Hematocrit 41.4 % (41-53); Hemoglobin 14.4 g/dL (13.5-17.5); Lymphocytes Absolute Auto 2400 /uL (1100-4500); Mean Corpuscular HGB Conc 34.7 % (30-36); Mean Corpuscular Hemoglobin 28.6 PG (26-34); Mean Corpuscular Volume 82.4 fL (80-100); Monocytes Absolute Auto 700 /uL (0-900); Monocytes Percent Auto 6.8 % (3-14); Neutrophils Absolute Auto 6700 /uL (1500-7000); Neutrophils Percent Auto 66.3 % (50-75); Platelet Count 318 X10^3/uL (150-400); Red Blood Cell Count 5.02 X10^6/uL (4.5-5.9); Red Cell Distribution Width 13.9 % (11.6-14.8); White Blood Cell Count 10.1 X10^3/uL (4.5-11.0)
[2022-07-13 14:06] LABS: Alanine Aminotransferase 33 IU/L (<50); Albumin 4.5 g/dL (3.5-5.0); Alkaline Phosphatase 46 U/L (38-126); Aspartate Aminotransferase 41 IU/L (17-59); BUN Creatinine Ratio 18.7 (6-22); Bilirubin Total 1.2 mg/dL (0.2-1.3); Blood Urea Nitrogen 25 mg/dL (9-20); Calcium 9.7 mg/dL (8.4-10.2); Carbon Dioxide 28 mmol/L (22-32); Chloride 100 mmol/L (98-107); Creatine Kinase 152 U/L (55-170); Estimated Glomerular Filt Rate > 60 mL/min (>60); Globulin 4.3 g/dL (1.7-4.1); Glucose 93 mg/dL (70-100); Sodium 137 mmol/L (137-145); Total Protein 8.8 g/dL (6.3-8.2)
[2022-07-13 14:08] LABS: HEMOLYSIS 64 (0-50); Potassium 5.3 mmol/L (3.4-5.1)
[2022-07-13] MEDS: SODIUM CHLORIDE 0.9% 1,000 ML 1000 ML IV (14:08)
[2022-07-13 14:13] LABS: Fractionated Inspired Oxygen 21; HCO3 VBG 29 mmol/L (24-28); Oxygen Saturation VBG 46 % (70-75); PCO2 VBG 47.4 mmHg (45-50); PO2 VBG 26 mmHg (35-45); Total CO2 VBG 30 mmol/L (24-29); pH VBG 7.39 (7.33-7.43)
[2022-07-13 14:18] LABS: Troponin I < 0.012 ng/mL (0.01-0.034)
== END 2022-07-13 16:10 | disposition home or self-care (01) ==
PROVIDERS: Emergency Provider Emergency Medicine; PCP Family Medicine
DX: E11.649 Type 2 diabetes mellitus with hypoglycemia without coma (principal); Z79.4 Long term (current) use of insulin; R11.2 Nausea with vomiting, unspecified; R53.1 Weakness; Z79.899 Other long term (current) drug therapy
CPT/HCPCS: 36415; 80053; 82550; 82805; 82962; 84484; 85025; 93005; 93010; 96361; 96374; 99284; J2405

== ENCOUNTER 2022-08-10 14:11 | Emergency (ER) | payer OTHER, SELFPAY ==
[2022-03-13 04:42] VITALS: BMI 37.3
[2022-08-10] VITALS (8 sets, daily range): BP systolic 170–213; BP diastolic 11–114; PULSE 79–95; RESP 14–18; TEMP 37.1; O2SAT 93–98; BMI 36.2
[2022-08-10] MEDS: METOCLOPRAMIDE 10 MG/2 ML INJ IV (14:31)
[2022-08-10] MEDS: ONDANSETRON 4 MG/2 ML INJ IV (14:31)
[2022-08-10] MEDS: SODIUM CHLORIDE 0.9% 1,000 ML 1000 ML IV (14:31)
[2022-08-10 14:40] LABS: Add Manual Diff / Slide Review NO; Basophils Absolute Auto 0 /uL (0-100); Basophils Percent Auto 0.2 % (0-2); Eosinophils Absolute Auto 0 /uL (0-450); Eosinophils Percent Auto 0.1 % (2-4); Hematocrit 42.2 % (41-53); Hemoglobin 14.6 g/dL (13.5-17.5); Lymphocytes Absolute Auto 1100 /uL (1100-4500); Mean Corpuscular HGB Conc 34.5 % (30-36); Mean Corpuscular Hemoglobin 28.6 PG (26-34); Mean Corpuscular Volume 82.8 fL (80-100); Monocytes Absolute Auto 300 /uL (0-900); Monocytes Percent Auto 3.7 % (3-14); Neutrophils Absolute Auto 7200 /uL (1500-7000); Platelet Count 284 X10^3/uL (150-400); Red Cell Distribution Width 14.3 % (11.6-14.8); White Blood Cell Count 8.7 X10^3/uL (4.5-11.0)
[2022-08-10 14:58] LABS: HCO3 VBG 28 mmol/L (24-28); Oxygen Saturation VBG 94 % (70-75); PCO2 VBG 37.7 mmHg (45-50); PO2 VBG 67 mmHg (35-45); Total CO2 VBG 29 mmol/L (24-29)
[2022-08-10 14:59] LABS: Fractionated Inspired Oxygen 20
[2022-08-10 15:00] LABS: pH VBG 7.48 (7.33-7.43)
--- NOTE | 2022-08-10 15:01 | ED_ITS ---
HPI - Nausea/Vomiting/Diarrhea General Chief complaint: Nausea/Vomiting/Diarrhea Stated complaint: Vomiting, Fatigue Time Seen by Provider: 08/10/22 14:16 Source: patient Mode of arrival: Ambulatory History of Present Illness HPI Narrative: 52-year-old male insulin-dependent diabetic presents with a few days of nausea, vomiting and weakness, he is well-known to myself and staff in presents relatively frequently under similar circumstances. He denies any change in medications or regimen. He is frequently using cannabis still. He denies any fever or chills. He does feel somewhat dizzy, weak and lightheaded and states he tried to take his blood pressure medications this morning but was unable to keep them down. He denies any change in his diabetic regimen. He denies any change in his diet. He is otherwise well and free of complaint. Related Data Home Medications Medication Instructions Recorded Confirmed amlodipine 10 mg tablet 10 mg PO DAILY 03/14/18 03/13/22 carvedilol 25 mg tablet 25 mg PO 1300 03/14/18 03/13/22 lisinopril 40 mg tablet 40 mg PO DAILY 03/14/18 03/13/22 metformin 500 mg tablet 850 mg PO BID 03/14/18 03/13/22 Novolog PenFill U-100 Insulin 12 - 15 units SUBCUT BID 09/30/19 03/13/22 insulin glargine U-300 conc 300 12 unit SUBCUT BID 03/13/22 03/13/22 unit/mL (1.5 mL) subcutaneous pen (Toujeo SoloStar U-300 Insulin) Previous Rx's Medication Instructions Recorded promethazine 25 mg tablet 25 mg PO Q6H PRN nausea and 03/28/22 vomiting #14 tabs metoclopramide HCl 10 mg tablet 10 mg PO QACHS #120 tabs 06/15/22 ondansetron 4 mg disintegrating 4 mg PO Q8H PRN nausea and 06/15/22 tablet vomiting #30 tabs Allergies Allergy/AdvReac Type Severity Reaction Status Date / Time No Known Drug Allergies Allergy Verified 08/10/22 14:18 Review of Systems Review of Systems Narrative: GENERAL: See HPI HEENT: Denies sinus pain, ear pain, sore throat, difficulty swallowing, dizziness. RESPIRATORY: Denies dyspnea, cough, wheezing, hemoptysis, sputum. CARDIOVASCULAR: Denies chest pain, palpitations, orthopnea, edema, GASTROINTESTINAL: See HPI : Denies dysuria, frequency, incontinence, hematuria, urinary retention. MUSCULOSKELETAL: denies weakness, joint pain, or bony pain SKIN: Denies rash, skin lesions, or other NEUROLOGIC: Denies weakness, headache, numbness, change in speech, confusion, seizures, incoordination. PSYCHIATRIC: No concerning psychosocial issues. 12 point review of systems is negative except for those stated above Patient History Medical History Congestive heart failure COVID Diabetes mellitus Hypertension Ulcer of left lower leg Ulcer of right leg Surgical History History of foot surgery Family History Father Myocardial infarction Mother Diabetes mellitus Brother Diabetes mellitus Social History household members: spouse and children Smoking Status: Former smoker alcohol intake: never Smoking Status: Former smoker tobacco type: cigarettes alcohol intake frequency: holidays/special occasions only Substance Use Type: marijuana Exam Narrative Exam Narrative: GENERAL: [52] year old patient appears stated age. Well-developed patient, in mild distress. HEAD: Atraumatic. Normocephalic. EYES: Pupils equal round and reactive. Extraocular motions intact. No scleral icterus. No injection or drainage. ENT: Nose without bleeding, purulent drainage. Throat without erythema, tonsillar hypertrophy or exudate. Airway patent. NECK: Trachea midline. Non tender CARDIOVASCULAR: Regular rate and rhythm without murmurs, gallops, or rubs. RESPIRATORY: Clear to auscultation. Breath sounds equal bilaterally. No wheezes, rales, or rhonchi. GASTROINTESTINAL: Abdomen soft, non-tender, nondistended. EXTREMITIES: No edema or joint tenderness. BACK: Nontender without deformity or crepitance. No flank tenderness. NEURO: AOx3. SKIN: No rash or erythema of visible areas Initial Vital Signs Initial Vital Signs: Vital Signs Temperature 98.7 F 08/10/22 14:15 Pulse Rate 95 H 08/10/22 14:15 Respiratory Rate 18 08/10/22 14:15 Blood Pressure 210/11 H 08/10/22 14:15 Pulse Oximetry 98 07/06/23 14:15 Oxygen Delivery Method Room Air 08/10/22 14:15 Course Orders Ordered: ED Orders 08/10/22 14:20 Complete Blood Count AUTO DIFF Stat Comprehensive Metabolic Panel Stat Ketones (Beta-Hydroxybutyrate) Stat Lactate (Lactic Acid) Stat Magnesium Stat VBG [Venous Blood Gas] Stat Discontinued Medications Sodium Chloride (Normal Saline 0.9%) 1,000 mls @ 1,000 mls/hr IV BOLUS ONE Stop: 08/10/22 15:15 Last Infusion: 08/10/22 15:31 Dose: 0 mls/hr Documented By: Admin: 08/10/22 14:31 Dose: 1,000 mls/hr Documented By: Metoclopramide HCl (Metoclopramide 10 Mg/2 Ml Inj) 10 mg IV NOW ONE Stop: 08/10/22 14:17 Last Admin: 08/10/22 14:31 Dose: 10 mg Documented By: Ondansetron HCl (Ondansetron 4 Mg/2 Ml Inj) 4 mg IV NOW ONE Stop: 08/10/22 14:17 Last Admin: 08/10/22 14:31 Dose: 4 mg Documented By: Vital Signs Vital signs: Vital Signs - 8 hr 08/10/22 14:15 08/10/22 14:29 08/10/22 14:30 Temperature 98.7 F Pulse Rate 95 H Respiratory Rate 18 Blood Pressure 210/11 H 213/114 H 205/110 H Pulse Oximetry 98 Oxygen Delivery Method Room Air 08/10/22 14:30 08/10/22 15:00 08/10/22 15:00 Temperature Pulse Rate 84 81 Respiratory Rate 14 15 Blood Pressure 183/99 H Pulse Oximetry 96 95 Oxygen Delivery Method 08/10/22 15:30 08/10/22 15:30 08/10/22 16:00 Temperature Pulse Rate 82 Respiratory Rate 16 Blood Pressure 188/93 H 170/91 H Pulse Oximetry 96 Oxygen Delivery Method 08/10/22 16:00 08/10/22 16:30 08/10/22 16:30 Temperature Pulse Rate 79 80 Respiratory Rate 15 16 Blood Pressure 182/100 H Pulse Oximetry 94 93 Oxygen Delivery Method 08/10/22 17:00 08/10/22 17:00 Temperature Pulse Rate 79 Respiratory Rate 17 Blood Pressure 182/92 H Pulse Oximetry 94 Oxygen Delivery Method MDM - Nausea/Vomiting/Diarrhea Lab Data 08/10/22 14:20 08/10/22 14:20 Labs: Lab Results 08/10/22 08/10/22 08/10/22 Range/Units 14:20 14:20 14:20 WBC 8.7 (4.5-11.0) X10^3/uL RBC 5.10 (4.5-5.9) X10^6/uL Hgb 14.6 (13.5-17.5) g/dL Hct 42.2 (41-53) % MCV 82.8 (80-100) fL MCH 28.6 (26-34) PG MCHC 34.5 (30-36) % RDW 14.3 (11.6-14.8) % Plt Count 284 (150-400) X10^3/uL Neut % (Auto) 83.0 H (50-75) % Lymph % (Auto) 13.0 L (25-40) % [place] % (Auto) 3.7 (3-14) % Eos % (Auto) 0.1 L (2-4) % Baso % (Auto) 0.2 (0-2) % Neut # (Auto) 7200 H (2591-9292) /uL Lymph # (Auto) 1100 (8838-8482) /uL [place] # (Auto) 300 (0-900) /uL Eos # (Auto) 0 (0-450) /uL Baso # (Auto) 0 (0-100) /uL VBG pH 7.48 H (7.33-7.43) VBG pCO2 37.7 L (45-50) mmHg VBG pO2 67 H (35-45) mmHg VBG HCO3 28 (24-28) mmol/L VBG Total CO2 29 (24-29) mmol/L VBG O2 Saturation 94 H (70-75) % VBG Base Excess 4.0 (0-4) mmol/L FiO2 20 Sodium (137-145) mmol/L Potassium (3.4-5.1) mmol/L Chloride (98-107) mmol/L Carbon Dioxide (22-32) mmol/L BUN (9-20) mg/dL Creatinine (0.66-1.25) mg/dL Estimated GFR (>60) mL/min BUN/Creatinine Ratio (6-22) Glucose (70-100) mg/dL Lactate (0.7-2.1) mmol/L Calcium (8.4-10.2) mg/dL Magnesium (1.6-2.3) mg/dL Total Bilirubin (0.2-1.3) mg/dL AST (17-59) IU/L ALT (<50) IU/L Alkaline Phosphatase (38-126) U/L Total Protein (6.3-8.2) g/dL Albumin (3.5-5.0) g/dL Globulin (1.7-4.1) g/dL Albumin/Globulin Ratio (1.0-2.8) Ketones 0.17 (<0.27) mmol/L 08/10/22 08/10/22 Range/Units 14:20 14:20 WBC (4.5-11.0) X10^3/uL RBC (4.5-5.9) X10^6/uL Hgb (13.5-17.5) g/dL Hct (41-53) % MCV (80-100) fL MCH (26-34) PG MCHC (30-36) % RDW (11.6-14.8) % Plt Count (150-400) X10^3/uL Neut % (Auto) (50-75) % Lymph % (Auto) (25-40) % [place] % (Auto) (3-14) % Eos % (Auto) (2-4) % Baso % (Auto) (0-2) % Neut # (Auto) (2901-6755) /uL Lymph # (Auto) (0346-9958) /uL [place] # (Auto) (0-900) /uL Eos # (Auto) (0-450) /uL Baso # (Auto) (0-100) /uL VBG pH (7.33-7.43) VBG pCO2 (45-50) mmHg VBG pO2 (35-45) mmHg VBG HCO3 (24-28) mmol/L VBG Total CO2 (24-29) mmol/L VBG O2 Saturation (70-75) % VBG Base Excess (0-4) mmol/L FiO2 Sodium 139 (137-145) mmol/L Potassium 4.0 (3.4-5.1) mmol/L Chloride 99 (98-107) mmol/L Carbon Dioxide 28 (22-32) mmol/L BUN 23 H (9-20) mg/dL Creatinine 1.06 (0.66-1.25) mg/dL Estimated GFR > 60 (>60) mL/min BUN/Creatinine Ratio 21.7 (6-22) Glucose 214 H (70-100) mg/dL Lactate 1.5 (0.7-2.1) mmol/L Calcium 9.4 (8.4-10.2) mg/dL Magnesium 1.8 (1.6-2.3) mg/dL Total Bilirubin 1.0 (0.2-1.3) mg/dL AST 30 (17-59) IU/L ALT 32 (<50) IU/L Alkaline Phosphatase 63 (38-126) U/L Total Protein 9.2 H (6.3-8.2) g/dL Albumin 4.4 (3.5-5.0) g/dL Globulin 4.8 H (1.7-4.1) g/dL Albumin/Globulin Ratio 0.9 L (1.0-2.8) Ketones (<0.27) mmol/L Point of Care Testing Glucose POC 199 MDM Narrative Medical decision making narrative: [52] year old patient presents with nausea vomiting and weakness Multiple etiologies for patient's symptoms considered including, but not limited to: [Diabetic emergency versus hyperemesis versus gastroparesis versus other] Prior Charts reviewed in our EMR Primary Historian: patient Labs reviewed and interpreted by myself: No significant abnormalities requiring specific intervention, no evidence of DKA Patient with reassuring history and physical exam, feels significant improvement after above-stated therapies. Tolerating orals and appropriate for discharge. No further workup necessary at this time Patient's symptoms improved over duration of stay with above-stated therapies. Findings and discharge diagnosis discussed with patient/family followed by verbalization of understanding Return precautions discussed with patient/family whom verbalize understanding of diagnosis and plan Discharge Plan Departure Patient Disposition: Home Clinical Impression: Nausea and vomiting Instructions: Nausea and Vomiting-Adult Activity Restrictions/Additional Instructions: *You have been diagnosed with [nausea and vomiting. As we discussed your labs are very reassuring and there is no evidence of diabetic emergency *What to do: *Please continue to take your regular medications as directed. *Please follow up with your primary care provider in 2-3 days, call for an appointment. Let them know you were seen in the Emergency Department and that we ask that you be seen in follow up. We will electronically transmit a record of today's note if your PCP is in our system *Please consider a clear liquid diet for the next 24-48 hours and then slowly advance to regular as tolerated. Also, try to avoid alcohol, nicotine, caffeine, spicy, acidic or fatty foods as this may worsen your symptoms *If you do not have a primary care provider please contact the [facility] Resource line at [phone]. They will ask some questions about your medical history and help get you set up with a doctor in the community. *Return to Emergency Department if you should have any new, worsening or concer charly symptoms, such as [fever greater than 101 F, shaking chills, worsening pain, persistent vomiting or other bothersome symptoms] Prescriptions: No Action metformin 500 mg Tablet 850 mg PO BID Rx Instructions: states he takes 850 mg carvedilol 25 mg Tablet 25 mg PO 1300 amlodipine 10 mg Tablet 10 mg PO DAILY lisinopril 40 mg Tablet 40 mg PO DAILY Novolog PenFill U-100 Insulin 12 - 15 units SUBCUT BID Rx Instructions: Takes before each meals. Toujeo SoloStar U-300 Insulin 300 unit/mL (1.5 mL) Insulin Pen 12 unit SUBCUT BID promethazine 25 mg tablet 25 mg PO Q6H PRN (Reason: nausea and vomiting) Qty: 14 0RF metoclopramide HCl 10 mg tablet 10 mg PO QACHS Qty: 120 0RF ondansetron 4 mg tablet,disintegrating 4 mg PO Q8H PRN (Reason: nausea and vomiting) Qty: 30 1RF Referrals: Toño Ovalles MD [Primary Care Provider] - Stand Alone Forms: Patient Portal/API
[2022-08-10 15:02] LABS: Lactate (Lactic Acid) 1.5 mmol/L (0.7-2.1)
[2022-08-10 15:04] LABS: Alanine Aminotransferase 32 IU/L (<50); Albumin 4.4 g/dL (3.5-5.0); Albumin Globulin Ratio 0.9 (1.0-2.8); Alkaline Phosphatase 63 U/L (38-126); Aspartate Aminotransferase 30 IU/L (17-59); BUN Creatinine Ratio 21.7 (6-22); Blood Urea Nitrogen 23 mg/dL (9-20); Calcium 9.4 mg/dL (8.4-10.2); Carbon Dioxide 28 mmol/L (22-32); Chloride 99 mmol/L (98-107); Estimated Glomerular Filt Rate > 60 mL/min (>60); Globulin 4.8 g/dL (1.7-4.1); Glucose 214 mg/dL (70-100); HEMOLYSIS < 15 (0-50); Magnesium 1.8 mg/dL (1.6-2.3); Sodium 139 mmol/L (137-145); Total Protein 9.2 g/dL (6.3-8.2)
[2022-08-10 15:05] LABS: Ketones (Beta-Hydroxybutyrate) 0.17 mmol/L (<0.27)
--- NOTE | 2022-08-10 15:33 | PC.NURSE ---
Pt sleeping, rouses to voice. Reports vomiting has stopped and nausea has decreased.
== END 2022-08-10 17:12 | disposition home or self-care (01) ==
PROVIDERS: Emergency Provider Emergency Medicine; PCP Family Medicine
DX: R11.2 Nausea with vomiting, unspecified (principal); E11.9 Type 2 diabetes mellitus without complications; Z79.4 Long term (current) use of insulin
CPT/HCPCS: 36415; 80053; 82009; 82805; 83605; 83735; 85025; 96374; 96375; 99284; J2405; J2765

== ENCOUNTER 2022-08-12 09:45 | Emergency (ER) | payer OTHER, SELFPAY ==
[2022-03-13 04:42] VITALS: BMI 37.3
[2022-08-12 09:50] VITALS: BP 169/105; PULSE 95; RESP 17; TEMP 36.6; O2SAT 100; BMI 36.9
[2022-08-12] MEDS: SODIUM CHLORIDE 0.9% 1,000 ML 1000 ML IV ×2 (10:12→11:26)
[2022-08-12] MEDS: ONDANSETRON 4 MG/2 ML INJ IV (10:12)
--- NOTE | 2022-08-12 10:27 | ED.NAVMDI ---
HPI - Nausea/Vomiting/Diarrhea General Chief complaint: Nausea/Vomiting/Diarrhea Stated complaint: Dizzy,Fatigue,Vomiting, cant keep anything down Time Seen by Provider: 08/12/22 10:27 Source: patient Mode of arrival: Ambulatory History of Present Illness HPI Narrative: Patient is a 52-year-old male history of insulin-dependent diabetes, marijuana use presents for the 2nd time this week he was initially seen August 10 for the same. He is unable keep anything down despite nausea medication at home. He generally feels fatigued and weak. Vomiting quite a bit. No significant abdominal pain fever or other symptoms. This is happened to him previously. Related Data Home Medications Medication Instructions Recorded Confirmed amlodipine 10 mg tablet 10 mg PO DAILY 03/14/18 08/12/22 carvedilol 25 mg tablet 25 mg PO 1300 03/14/18 08/12/22 lisinopril 40 mg tablet 40 mg PO QAM 03/14/18 08/12/22 metformin 500 mg tablet 850 mg PO BID 03/14/18 03/13/22 Novolog PenFill U-100 Insulin 12 - 15 units SUBCUT BID 09/30/19 03/13/22 insulin glargine U-300 conc 300 12 unit SUBCUT BID 03/13/22 03/13/22 unit/mL (1.5 mL) subcutaneous pen (Toujeo SoloStar U-300 Insulin) ondansetron 4 mg disintegrating 4 mg translingual Q8HR PRN 08/12/22 08/12/22 tablet nausea/vomting Previous Rx's Medication Instructions Recorded promethazine 25 mg tablet 25 mg PO Q6H PRN nausea and 03/28/22 vomiting #14 tabs metoclopramide HCl 10 mg tablet 10 mg PO QACHS #120 tabs 06/15/22 ondansetron 4 mg disintegrating 4 mg PO Q8H PRN nausea and 06/15/22 tablet vomiting #30 tabs Allergies Allergy/AdvReac Type Severity Reaction Status Date / Time No Known Drug Allergies Allergy Verified 08/12/22 09:54 Review of Systems Review of Systems ROS Unobtainable: All systems reviewed & are unremarkable except as noted in HPI and below Patient History Medical History Congestive heart failure COVID Diabetes mellitus Hypertension Ulcer of left lower leg Ulcer of right leg Surgical History History of foot surgery Family History Father Myocardial infarction Mother Diabetes mellitus Brother Diabetes mellitus Social History household members: spouse and children Smoking Status: Former smoker alcohol intake: never Smoking Status: Former smoker tobacco type: cigarettes alcohol intake frequency: other Substance Use Type: marijuana Exam Initial Vital Signs Initial Vital Signs: Vital Signs Temperature 97.9 F 08/12/22 09:50 Pulse Rate 95 H 08/12/22 09:50 Respiratory Rate 17 08/12/22 09:50 Blood Pressure 169/105 H 08/12/22 09:50 Pulse Oximetry 100 08/12/22 09:50 Oxygen Delivery Method Room Air 08/12/22 09:50 GENERAL: Alert 52-year-old male appears to not feel well and in no acute distress. HEENT: Head atraumatic,EOMI, pupils reactive, face symmetric, moist mucous membranes CARDIOVASCULAR: Regular rate and rhythm without murmurs, rubs or gallops. RESPIRATORY: Breath sounds equal bilaterally, no wheezes rales or rhonchi. ABDOMEN: Soft, nontender. Normoactive bowel sounds all 4 quadrants. No guarding or rebound. EXTREMITIES: Normal range of motion, no clubbing or edema. Neurovascularly intact NEUROLOGICAL: Alert and oriented x4.Normal gait and speech. SKIN: Warm, dry, no laceration, no petechiae, no rashes or lesions. Course Orders Ordered: ED Orders 08/12/22 10:00 Complete Blood Count AUTO DIFF Stat Comprehensive Metabolic Panel Stat Ketones (Beta-Hydroxybutyrate) Stat Lactate (Lactic Acid) Stat Lipase Stat 08/12/22 13:04 Urine Culture Stat Urine Microscopic Stat Discontinued Medications Amlodipine Besylate (Amlodipine 5 Mg Tablet) 10 mg PO NOW ONE Stop: 08/12/22 11:44 Last Admin: 08/12/22 11:54 Dose: 10 mg Documented By: MARISSA Carvedilol (Carvedilol 12.5 Mg Tablet) 25 mg PO NOW ONE Stop: 08/12/22 11:44 Last Admin: 08/12/22 11:54 Dose: 25 mg Documented By: MARISSA Sodium Chloride (Normal Saline 0.9%) 1,000 mls @ 1,000 mls/hr IV BOLUS ONE Stop: 08/12/22 11:05 Last Infusion: 08/12/22 11:26 Dose: 0 mls/hr Documented By: Admin: 08/12/22 10:12 Dose: 1,000 mls/hr Documented By: MARISSA Sodium Chloride (Normal Saline 0.9%) 1,000 mls @ 1,000 mls/hr IV BOLUS ONE Stop: 08/12/22 12:10 Last Infusion: 08/12/22 12:56 Dose: 0 mls/hr Documented By: Admin: 08/12/22 11:26 Dose: 1,000 mls/hr Documented By: MARISSA Lisinopril (Lisinopril 20 Mg Tablet) 40 mg PO NOW ONE Stop: 08/12/22 11:44 Last Admin: 08/12/22 11:54 Dose: 40 mg Documented By: MARISSA Ondansetron HCl (Ondansetron 4 Mg Odt) 4 mg PO NOW PRN PRN Reason: Nausea And Vomiting Ondansetron HCl (Ondansetron 4 Mg/2 Ml Inj) 4 mg IV NOW PRN PRN Reason: Nausea And Vomiting Last Admin: 08/12/22 10:12 Dose: 4 mg Documented By: MARISSA Pantoprazole Sodium (Pantoprazole 40 Mg Vial) 40 mg IV NOW ONE Stop: 08/12/22 11:12 Last Admin: 08/12/22 11:25 Dose: 40 mg Documented By: MARISSA Vital Signs Vital signs: Vital Signs - 8 hr 08/12/22 09:50 08/12/22 11:30 08/12/22 13:00 Temperature 97.9 F Pulse Rate 95 H 82 62 Respiratory Rate 17 14 18 Blood Pressure 169/105 H 202/108 H 159/92 H Pulse Oximetry 100 99 99 Oxygen Delivery Method Room Air Room Air Room Air 08/12/22 14:04 Temperature Pulse Rate 86 Respiratory Rate Blood Pressure 192/112 H Pulse Oximetry 99 Oxygen Delivery Method Room Air MDM - Nausea/Vomiting/Diarrhea Lab Data 08/12/22 10:00 08/12/22 10:00 Labs: Lab Results 08/12/22 08/12/22 08/12/22 Range/Units 10:00 10:00 10:00 WBC 9.2 (4.5-11.0) X10^3/uL RBC 5.28 (4.5-5.9) X10^6/uL Hgb 15.0 (13.5-17.5) g/dL Hct 43.4 (41-53) % MCV 82.3 (80-100) fL MCH 28.3 (26-34) PG MCHC 34.4 (30-36) % RDW 14.2 (11.6-14.8) % Plt Count 338 (150-400) X10^3/uL Neut % (Auto) 73.1 (50-75) % Lymph % (Auto) 19.9 L (25-40) % [place] % (Auto) 6.2 (3-14) % Eos % (Auto) 0.2 L (2-4) % Baso % (Auto) 0.6 (0-2) % Neut # (Auto) 6700 (4996-0831) /uL Lymph # (Auto) 1800 (7546-9787) /uL [place] # (Auto) 600 (0-900) /uL Eos # (Auto) 0 (0-450) /uL Baso # (Auto) 100 (0-100) /uL Sodium 136 L (137-145) mmol/L Potassium 4.0 (3.4-5.1) mmol/L Chloride 99 (98-107) mmol/L Carbon Dioxide 26 (22-32) mmol/L BUN 21 H (9-20) mg/dL Creatinine 1.11 (0.66-1.25) mg/dL Estimated GFR > 60 (>60) mL/min BUN/Creatinine Ratio 18.9 (6-22) Glucose 183 H (70-100) mg/dL Lactate 1.4 (0.7-2.1) mmol/L Calcium 9.3 (8.4-10.2) mg/dL Total Bilirubin 1.2 (0.2-1.3) mg/dL AST 34 (17-59) IU/L ALT 34 (<50) IU/L Alkaline Phosphatase 60 (38-126) U/L Total Protein 9.2 H (6.3-8.2) g/dL Albumin 4.5 (3.5-5.0) g/dL Globulin 4.7 H (1.7-4.1) g/dL Albumin/Globulin Ratio 1.0 (1.0-2.8) Lipase 89 (23-300) U/L Urine RBC (0-5/HPF) Urine WBC (0-5/HPF) Ur Squamous Epith Cells (0-5/HPF) Urine Bacteria (None) Hyaline Casts (None) Ketones 0.32 H (<0.27) mmol/L 08/12/22 Range/Units 13:04 WBC (4.5-11.0) X10^3/uL RBC (4.5-5.9) X10^6/uL Hgb (13.5-17.5) g/dL Hct (41-53) % MCV (80-100) fL MCH (26-34) PG MCHC (30-36) % RDW (11.6-14.8) % Plt Count (150-400) X10^3/uL Neut % (Auto) (50-75) % Lymph % (Auto) (25-40) % [place] % (Auto) (3-14) % Eos % (Auto) (2-4) % Baso % (Auto) (0-2) % Neut # (Auto) (6179-3609) /uL Lymph # (Auto) (9989-6035) /uL [place] # (Auto) (0-900) /uL Eos # (Auto) (0-450) /uL Baso # (Auto) (0-100) /uL Sodium (137-145) mmol/L Potassium (3.4-5.1) mmol/L Chloride (98-107) mmol/L Carbon Dioxide (22-32) mmol/L BUN (9-20) mg/dL Creatinine (0.66-1.25) mg/dL Estimated GFR (>60) mL/min BUN/Creatinine Ratio (6-22) Glucose (70-100) mg/dL Lactate (0.7-2.1) mmol/L Calcium (8.4-10.2) mg/dL Total Bilirubin (0.2-1.3) mg/dL AST (17-59) IU/L ALT (<50) IU/L Alkaline Phosphatase (38-126) U/L Total Protein (6.3-8.2) g/dL Albumin (3.5-5.0) g/dL Globulin (1.7-4.1) g/dL Albumin/Globulin Ratio (1.0-2.8) Lipase (23-300) U/L Urine RBC 0-1/hpf (0-5/HPF) Urine WBC 0-1/hpf (0-5/HPF) Ur Squamous Epith Cells None seen (0-5/HPF) Urine Bacteria None seen (None) Hyaline Casts 0-1/lpf (None) Ketones (<0.27) mmol/L Urine Dip Bedside Urine Glucose Negative Bedside Urine Bilirubin - Negative Bedside Urine Ketone - Negative Urine Specific [place] 1.015 Bedside Urine Occult Blood ++ Bedside Urine pH 7.5 Bedside Urine Protein +/- 15 Bedside Urine Urobilinogen - Negative Bedside Urine Nitrite - Negative Bedside Urine Leukocytes - Negative Esterase MDM Narrative Medical decision making narrative: Patient 52-year-old male history of insulin-dependent diabetes presenting today with nausea vomiting. He has been seen here previously for this paucity possibly marijuana induced and hyperemesis. No evidence of DKA today, glucose 183 no anion gap, no leukocytosis or sign of infection. He does have some hematuria on the POC but no red blood cells on the microscopic UA. He is not having any flank pain or abdominal pain it is not radiating like a kidney stone. No evidence of infection. This is similar to previous presentations. Feeling much better after IV fluids and anti nausea medication. He did does not need another prescription he has multiple home. He was noted to be hypertensive however he has been unable to keep down his blood pressure meds. Once nausea was controlled he was given his blood pressure medication which actually did help. Discharge Plan Departure Patient Disposition: Home Clinical Impression: Nausea and vomiting, Hematuria Instructions: DI for Vomiting -- Adult, DI for Hematuria Activity Restrictions/Additional Instructions: *You have been diagnosed with blood in urine and vomiting *What to do: Increase fluids as tolerated please continue to check sugar *Continue to take medications as directed Anti nausea medication as needed as previously prescribed *Follow up with your primary care provider in 2-3 days or call [phone] *Return to ER if you should have inability to tolerate fluids fever increasing flank pain or any new, worsening or concerning symptoms Prescriptions: No Action metformin 500 mg Tablet 850 mg PO BID Rx Instructions: states he takes 850 mg carvedilol 25 mg Tablet 25 mg PO 1300 amlodipine 10 mg Tablet 10 mg PO DAILY lisinopril 40 mg Tablet 40 mg PO QAM ondansetron 4 mg tablet,disintegrating 4 mg translingual Q8HR PRN (Reason: nausea/vomting) Patient Comments: DISSOLVE ONE TABLET IN MOUTH EVERY EIGHT HOURS NEEDED FOR NAUSEA AND VOMITING. Novolog PenFill U-100 Insulin 12 - 15 units SUBCUT BID Rx Instructions: Takes before each meals. Toujeo SoloStar U-300 Insulin 300 unit/mL (1.5 mL) Insulin Pen 12 unit SUBCUT BID promethazine 25 mg tablet 25 mg PO Q6H PRN (Reason: nausea and vomiting) Qty: 14 0RF metoclopramide HCl 10 mg tablet 10 mg PO QACHS Qty: 120 0RF ondansetron 4 mg tablet,disintegrating 4 mg PO Q8H PRN (Reason: nausea and vomiting) Qty: 30 1RF Referrals: Toño Ovalles MD [Primary Care Provider] - Stand Alone Forms: Patient Portal/API
[2022-08-12 10:29] LABS: Add Manual Diff / Slide Review NO; Basophils Absolute Auto 100 /uL (0-100); Basophils Percent Auto 0.6 % (0-2); Eosinophils Absolute Auto 0 /uL (0-450); Eosinophils Percent Auto 0.2 % (2-4); Hematocrit 43.4 % (41-53); Lymphocytes Absolute Auto 1800 /uL (1100-4500); Lymphocytes Percent Auto 19.9 % (25-40); Mean Corpuscular HGB Conc 34.4 % (30-36); Mean Corpuscular Hemoglobin 28.3 PG (26-34); Mean Corpuscular Volume 82.3 fL (80-100); Monocytes Absolute Auto 600 /uL (0-900); Monocytes Percent Auto 6.2 % (3-14); Neutrophils Absolute Auto 6700 /uL (1500-7000); Neutrophils Percent Auto 73.1 % (50-75); Platelet Count 338 X10^3/uL (150-400); Red Blood Cell Count 5.28 X10^6/uL (4.5-5.9); Red Cell Distribution Width 14.2 % (11.6-14.8); White Blood Cell Count 9.2 X10^3/uL (4.5-11.0)
[2022-08-12 10:46] LABS: Alanine Aminotransferase 34 IU/L (<50); Albumin 4.5 g/dL (3.5-5.0); Alkaline Phosphatase 60 U/L (38-126); Aspartate Aminotransferase 34 IU/L (17-59); BUN Creatinine Ratio 18.9 (6-22); Bilirubin Total 1.2 mg/dL (0.2-1.3); Blood Urea Nitrogen 21 mg/dL (9-20); Calcium 9.3 mg/dL (8.4-10.2); Carbon Dioxide 26 mmol/L (22-32); Chloride 99 mmol/L (98-107); Estimated Glomerular Filt Rate > 60 mL/min (>60); Globulin 4.7 g/dL (1.7-4.1); Glucose 183 mg/dL (70-100); HEMOLYSIS < 15 (0-50); Lactate (Lactic Acid) 1.4 mmol/L (0.7-2.1); Lipase 89 U/L (23-300); Sodium 136 mmol/L (137-145); Total Protein 9.2 g/dL (6.3-8.2)
[2022-08-12 10:48] LABS: Ketones (Beta-Hydroxybutyrate) 0.32 mmol/L (<0.27)
[2022-08-12] MEDS: PANTOPRAZOLE 40 MG VIAL IV (11:25)
[2022-08-12 11:30] VITALS: BP 202/108; PULSE 82; RESP 14; O2SAT 99
[2022-08-12] MEDS: carvediloL 12.5 MG TABLET 25 MG PO (11:54)
[2022-08-12] MEDS: AMLODIPINE 5 MG TABLET 10 MG PO (11:54)
[2022-08-12] MEDS: lisinopriL 20 MG TABLET 40 MG PO (11:54)
[2022-08-12 13:00] VITALS: BP 159/92; PULSE 62; RESP 18; O2SAT 99
[2022-08-12 13:30] LABS: Bacteria Urine None Seen; Hyaline Casts Urine 0-1/LPF; RBC Urine 0-1/HPF (0-5/HPF); Squamous Epithelial Cell Urine None Seen (0-5/HPF); WBC Urine 0-1/HPF (0-5/HPF)
[2022-08-12 14:04] VITALS: BP 192/112; PULSE 86; O2SAT 99
== END 2022-08-12 14:06 | disposition home or self-care (01) ==
PROVIDERS: Emergency Provider Emergency Medicine; PCP Family Medicine
DX: R11.2 Nausea with vomiting, unspecified (principal); R31.9 Hematuria, unspecified
CPT/HCPCS: 36415; 80053; 81003; 81015; 82009; 83605; 83690; 85025; 87086; 96361; 96374; 96375; 99284; C9113; J2405

== ENCOUNTER 2022-08-22 19:03 | Emergency (ER) | payer OTHER, SELFPAY ==
[2022-03-13 04:42] VITALS: BMI 37.3
[2022-08-22] VITALS (13 sets, daily range): BP systolic 139–206; BP diastolic 71–105; PULSE 85–103; RESP 18–26; TEMP 37.3–39.1; O2SAT 93–98; BMI 36.9
--- NOTE | 2022-08-22 19:34 | DI.RAD.S_ITS ---
PROCEDURE: XR CHEST 1V INDICATIONS: suspected sepsis TECHNIQUE: One view of the chest was acquired. COMPARISON: [facility], CR, XR CHEST 1V, 03/11/2022, 3:52. FINDINGS: Surgical changes and devices: None. Lungs and pleura: Lungs are clear. No pleural effusions or pneumothorax. Mediastinum: Mediastinal contours appear normal. Heart size is normal. Bones and chest wall: No suspicious bony lesions. Overlying soft tissues appear unremarkable. IMPRESSION: 1. No acute cardiopulmonary disease. Dictated by: Nemesio Foreman M.D. on 08/22/2022 at 20:48 Approved by: Nemesio Foreman M.D. on 08/22/2022 at 20:48
[2022-08-22] MEDS: SODIUM CHLORIDE 0.9% 1,000 ML 1000 ML IV ×2 (19:54→20:58)
[2022-08-22] MEDS: ACETAMINOPHEN 325 MG TABLET 975 MG PO (19:55)
[2022-08-22] MEDS: IBUPROFEN 400 MG TABLET 800 MG PO (19:55)
[2022-08-22 19:59] LABS: Add Manual Diff / Slide Review NO; Basophils Absolute Auto 100 /uL (0-100); Basophils Percent Auto 0.5 % (0-2); Eosinophils Absolute Auto 0 /uL (0-450); Eosinophils Percent Auto 0.3 % (2-4); Hematocrit 37.9 % (41-53); Hemoglobin 13.4 g/dL (13.5-17.5); Lymphocytes Absolute Auto 1000 /uL (1100-4500); Lymphocytes Percent Auto 9.6 % (25-40); Mean Corpuscular HGB Conc 35.3 % (30-36); Mean Corpuscular Hemoglobin 28.7 PG (26-34); Mean Corpuscular Volume 81.3 fL (80-100); Monocytes Absolute Auto 900 /uL (0-900); Monocytes Percent Auto 8.6 % (3-14); Neutrophils Absolute Auto 8800 /uL (1500-7000); Platelet Count 249 X10^3/uL (150-400); Red Blood Cell Count 4.66 X10^6/uL (4.5-5.9); Red Cell Distribution Width 14.1 % (11.6-14.8); White Blood Cell Count 10.9 X10^3/uL (4.5-11.0)
[2022-08-22 20:13] LABS: INR 1.2 (0.9-1.3); Prothrombin Time 13.6 SECONDS (10.1-12.7)
[2022-08-22 20:16] LABS: PTT Partial Thromboplastin Tim 31 SECONDS (26-36)
[2022-08-22 20:18] LABS: Lactate (Lactic Acid) 1.1 mmol/L (0.7-2.1)
[2022-08-22 20:19] LABS: Alanine Aminotransferase 24 IU/L (<50); Albumin 4.1 g/dL (3.5-5.0); Albumin Globulin Ratio 1.1 (1.0-2.8); Alkaline Phosphatase 57 U/L (38-126); Aspartate Aminotransferase 27 IU/L (17-59); BUN Creatinine Ratio 15.4 (6-22); Bilirubin Total 0.7 mg/dL (0.2-1.3); Blood Urea Nitrogen 16 mg/dL (9-20); Calcium 8.8 mg/dL (8.4-10.2); Carbon Dioxide 26 mmol/L (22-32); Chloride 99 mmol/L (98-107); Estimated Glomerular Filt Rate > 60 mL/min (>60); Globulin 3.9 g/dL (1.7-4.1); Glucose 182 mg/dL (70-100); HEMOLYSIS < 15 (0-50); Lipase 88 U/L (23-300); Potassium 4.1 mmol/L (3.4-5.1); Sodium 134 mmol/L (137-145)
[2022-08-22 20:36] LABS: Procalcitonin 0.19 ng/mL (<0.5)
--- NOTE | 2022-08-22 20:50 | ED_ITS ---
HPI - Nausea/Vomiting/Diarrhea General Chief complaint: Nausea/Vomiting/Diarrhea Stated complaint: nausea, vomiting Time Seen by Provider: 08/22/22 19:57 Source: patient Mode of arrival: Ambulatory History of Present Illness HPI Narrative: Patient is a 52-year-old male. He is a insulin-dependent diabetic. Does seem wound care for wounds on both of his feet. He was just started on doxycycline approximately 24 hours ago for an infection in his right little toe. His did change his bandages on his lower extremities earlier this morning. He states that for the past day or so he has had nausea and vomiting and generally not feeling very well. No chest pain. No shortness of breath. He does report fevers. Related Data Home Medications Medication Instructions Recorded Confirmed amlodipine 10 mg tablet 10 mg PO DAILY 03/14/18 08/12/22 carvedilol 25 mg tablet 25 mg PO 1300 03/14/18 08/12/22 lisinopril 40 mg tablet 40 mg PO QAM 03/14/18 08/12/22 metformin 500 mg tablet 850 mg PO BID 03/14/18 03/13/22 Novolog PenFill U-100 Insulin 12 - 15 units SUBCUT BID 09/30/19 03/13/22 insulin glargine U-300 conc 300 12 unit SUBCUT BID 03/13/22 03/13/22 unit/mL (1.5 mL) subcutaneous pen (Toujeo SoloStar U-300 Insulin) ondansetron 4 mg disintegrating 4 mg translingual Q8HR PRN 08/12/22 08/12/22 tablet nausea/vomting Previous Rx's Medication Instructions Recorded promethazine 25 mg tablet 25 mg PO Q6H PRN nausea and 03/28/22 vomiting #14 tabs metoclopramide HCl 10 mg tablet 10 mg PO QACHS #120 tabs 06/15/22 ondansetron 4 mg disintegrating 4 mg PO Q8H PRN nausea and 06/15/22 tablet vomiting #30 tabs ondansetron 4 mg disintegrating 4 mg PO Q6H PRN nausea and 08/22/22 tablet vomiting #14 tabs Allergies Allergy/AdvReac Type Severity Reaction Status Date / Time No Known Drug Allergies Allergy Verified 08/22/22 19:34 Review of Systems Constitutional Constitutional: Reports system reviewed and no additional complaints, except as documented Cardiovascular Cardiovascular: Reports system reviewed and no additional complaints, except as documented Respiratory Respiratory: Reports system reviewed and no additional complaints, except as documented Gastrointestinal Gastrointestinal: Reports system reviewed and no additional complaints, except as documented Musculoskeletal Musculoskeletal: Reports system reviewed and no additional complaints, except as documented Integumentary/Breasts Skin/Breast: Reports system reviewed and no additional complaints, except as documented Neurologic Neurologic: Reports system reviewed and no additional complaints, except as documented Patient History Medical History Congestive heart failure COVID Diabetes mellitus Hypertension Ulcer of left lower leg Ulcer of right leg Surgical History History of foot surgery Family History Father Myocardial infarction Mother Diabetes mellitus Brother Diabetes mellitus Social History household members: spouse and children Smoking Status: Former smoker alcohol intake: never Smoking Status: Former smoker tobacco type: cigarettes alcohol intake frequency: other Substance Use Type: marijuana Exam Initial Vital Signs Initial Vital Signs: Vital Signs Temperature 102.3 F H 08/22/22 19:26 Pulse Rate 103 H 08/22/22 19:26 Respiratory Rate 26 H 08/22/22 19:26 Blood Pressure 206/105 H 08/22/22 19:26 Pulse Oximetry 98 08/22/22 19:26 Oxygen Delivery Method Room Air 08/22/22 19:26 Const General: cooperative and No ill appearing HENMT Head: normal to inspection and normocephalic Resp Effort & Inspection: normal respiratory effort Auscultation: clear to auscultation bilaterally Cardio Rate: tachycardic Rhythm: regular rhythm GI Inspection: normal to inspection and non-distended Skin Other: Bilateral lower extremity are covered with Coban. Neuro General: patient alert, patient awake and patient oriented x3 Course Orders Ordered: ED Orders 08/22/22 19:34 XR chest 1V Stat EKG-12 Lead Stat RT Consult Eval and Treat NOW 08/22/22 19:40 Complete Blood Count AUTO DIFF Stat Comprehensive Metabolic Panel Stat Lactate (Lactic Acid) Stat Lipase Stat PTT Partial Thromboplastin Sonny Stat Procalcitonin Stat Prothrombin Time INR Stat 08/22/22 20:02 Blood Culture Stat Discontinued Medications Acetaminophen (Acetaminophen 325 Mg Tablet) 975 mg PO NOW ONE Stop: 08/22/22 19:50 Last Admin: 08/22/22 19:55 Dose: 975 mg Documented By: Acetaminophen (Acetaminophen 650 Mg Supp) 650 mg SD NOW ONE Stop: 08/22/22 19:50 Last Admin: 08/22/22 19:56 Dose: Not Given Documented By: Sodium Chloride (Normal Saline 0.9%) 1,000 mls @ 1,000 mls/hr IV BOLUS ONE Stop: 08/22/22 20:33 Last Infusion: 08/22/22 20:33 Dose: 0 mls/hr Documented By: Admin: 08/22/22 19:54 Dose: 1,000 mls/hr Documented By: Sodium Chloride (Normal Saline 0.9%) 1,000 mls @ 1,000 mls/hr IV BOLUS ONE Stop: 08/22/22 21:50 Last Infusion: 08/22/22 22:00 Dose: 0 mls/hr Documented By: Admin: 08/22/22 20:58 Dose: 1,000 mls/hr Documented By: Ibuprofen (Ibuprofen 400 Mg Tablet) 800 mg PO NOW ONE Stop: 08/22/22 19:50 Last Admin: 08/22/22 19:55 Dose: 800 mg Documented By: Ondansetron HCl (Ondansetron 4 Mg/2 Ml Inj) 4 mg IV NOW PRN PRN Reason: Nausea And Vomiting Ondansetron HCl (Ondansetron 4 Mg Odt) 4 mg SL NOW PRN PRN Reason: Nausea And Vomiting Ondansetron HCl (Ondansetron 4 Mg Odt Prepack) 1 bottle MISC SEEINSTR ONE Stop: 08/22/22 22:15 Last Admin: 08/22/22 22:22 Dose: 1 bottle Documented By: Vital Signs Vital signs: Vital Signs - 8 hr 08/22/22 19:26 08/22/22 19:55 08/22/22 19:55 Temperature 102.3 F H 102.3 F H 102.3 F H Pulse Rate 103 H Respiratory Rate 26 H Blood Pressure 206/105 H Pulse Oximetry 98 Oxygen Delivery Method Room Air 08/22/22 19:52 08/22/22 20:00 08/22/22 20:01 Temperature Pulse Rate 97 H 100 H 98 H Respiratory Rate 19 23 Blood Pressure Pulse Oximetry 96 94 Oxygen Delivery Method 08/22/22 20:01 08/22/22 20:30 08/22/22 20:30 Temperature Pulse Rate 92 H Respiratory Rate 22 Blood Pressure 158/86 H 167/87 H Pulse Oximetry 93 Oxygen Delivery Method Room Air 08/22/22 20:59 08/22/22 21:05 08/22/22 21:05 Temperature 99.6 F 99.2 F 99.2 F Pulse Rate Respiratory Rate Blood Pressure Pulse Oximetry Oxygen Delivery Method 08/22/22 21:00 08/22/22 21:00 08/22/22 21:20 Temperature 100.2 F H Pulse Rate 95 H Respiratory Rate 18 Blood Pressure 155/77 H Pulse Oximetry 95 Oxygen Delivery Method Room Air 08/22/22 21:30 08/22/22 21:30 08/22/22 22:00 Temperature 100.0 F H Pulse Rate 86 Respiratory Rate 21 Blood Pressure 139/71 141/71 H Pulse Oximetry 95 Oxygen Delivery Method 08/22/22 22:00 08/22/22 22:29 Temperature 99.2 F Pulse Rate 85 Respiratory Rate 18 Blood Pressure Pulse Oximetry 96 Oxygen Delivery Method MDM - Nausea/Vomiting/Diarrhea Lab Data Attestation: I reviewed the patient's lab results. 08/22/22 19:40 08/22/22 19:40 Labs: Lab Results 08/22/22 08/22/22 08/22/22 Range/Units 19:40 19:40 19:40 WBC 10.9 (4.5-11.0) X10^3/uL RBC 4.66 (4.5-5.9) X10^6/uL Hgb 13.4 L (13.5-17.5) g/dL Hct 37.9 L (41-53) % MCV 81.3 (80-100) fL MCH 28.7 (26-34) PG MCHC 35.3 (30-36) % RDW 14.1 (11.6-14.8) % Plt Count 249 (150-400) X10^3/uL Neut % (Auto) 81.0 H (50-75) % Lymph % (Auto) 9.6 L (25-40) % Lawrence % (Auto) 8.6 (3-14) % Eos % (Auto) 0.3 L (2-4) % Baso % (Auto) 0.5 (0-2) % Neut # (Auto) 8800 H (2532-1546) /uL Lymph # (Auto) 1000 L (6664-4659) /uL Lawrence # (Auto) 900 (0-900) /uL Eos # (Auto) 0 (0-450) /uL Baso # (Auto) 100 (0-100) /uL PT 13.6 H (10.1-12.7) SECONDS INR 1.2 (0.9-1.3) APTT 31 (26-36) SECONDS Sodium 134 L (137-145) mmol/L Potassium 4.1 (3.4-5.1) mmol/L Chloride 99 (98-107) mmol/L Carbon Dioxide 26 (22-32) mmol/L BUN 16 (9-20) mg/dL Creatinine 1.04 (0.66-1.25) mg/dL Estimated GFR > 60 (>60) mL/min BUN/Creatinine Ratio 15.4 (6-22) Glucose 182 H (70-100) mg/dL Lactate (0.7-2.1) mmol/L Calcium 8.8 (8.4-10.2) mg/dL Total Bilirubin 0.7 (0.2-1.3) mg/dL AST 27 (17-59) IU/L ALT 24 (<50) IU/L Alkaline Phosphatase 57 (38-126) U/L Total Protein 8.0 (6.3-8.2) g/dL Albumin 4.1 (3.5-5.0) g/dL Globulin 3.9 (1.7-4.1) g/dL Albumin/Globulin Ratio 1.1 (1.0-2.8) Lipase 88 (23-300) U/L Procalcitonin 0.19 (<0.5) ng/mL 08/22/22 Range/Units 19:40 WBC (4.5-11.0) X10^3/uL RBC (4.5-5.9) X10^6/uL Hgb (13.5-17.5) g/dL Hct (41-53) % MCV (80-100) fL MCH (26-34) PG MCHC (30-36) % RDW (11.6-14.8) % Plt Count (150-400) X10^3/uL Neut % (Auto) (50-75) % Lymph % (Auto) (25-40) % Lawrence % (Auto) (3-14) % Eos % (Auto) (2-4) % Baso % (Auto) (0-2) % Neut # (Auto) (1490-2086) /uL Lymph # (Auto) (4617-6791) /uL Lawrence # (Auto) (0-900) /uL Eos # (Auto) (0-450) /uL Baso # (Auto) (0-100) /uL PT (10.1-12.7) SECONDS INR (0.9-1.3) APTT (26-36) SECONDS Sodium (137-145) mmol/L Potassium (3.4-5.1) mmol/L Chloride (98-107) mmol/L Carbon Dioxide (22-32) mmol/L BUN (9-20) mg/dL Creatinine (0.66-1.25) mg/dL Estimated GFR (>60) mL/min BUN/Creatinine Ratio (6-22) Glucose (70-100) mg/dL Lactate 1.1 (0.7-2.1) mmol/L Calcium (8.4-10.2) mg/dL Total Bilirubin (0.2-1.3) mg/dL AST (17-59) IU/L ALT (<50) IU/L Alkaline Phosphatase (38-126) U/L Total Protein (6.3-8.2) g/dL Albumin (3.5-5.0) g/dL Globulin (1.7-4.1) g/dL Albumin/Globulin Ratio (1.0-2.8) Lipase (23-300) U/L Procalcitonin (<0.5) ng/mL Imaging Data Chest x-ray: Radiologist's Impression: PROCEDURE:? XR CHEST 1V ? INDICATIONS:? suspected sepsis ? TECHNIQUE:? One view of the chest was acquired.? ? COMPARISON:? [facility], CR, XR CHEST 1V, 03/11/2022, 3:52. ? FINDINGS:? ? Surgical changes and devices:? None.? ? Lungs and pleura:? Lungs are clear.? No pleural effusions or pneumothorax.? ? Mediastinum:? Mediastinal contours appear normal.? Heart size is normal.? ? Bones and chest wall:? No suspicious bony lesions.? Overlying soft tissues appear unremarkable.? ? IMPRESSION:? ? 1.? No acute cardiopulmonary disease ECG Data Attestation: I personally reviewed and interpreted this ECG as follows: Interpretation: Sinus rhythm Ventricular rate 96 Normal axis Normal QRS Normal QTC No ST T wave changes MDM Narrative Medical decision making narrative: Patient was febrile and tachycardic upon arrival but this did improve with fluids and other medications here in the ER. He is no leukocytosis. Normal lactate. He has a known infection in his right little toe. We will hold on removing his lower extremity bandages here in the emergency department as they are quite extensive and they were just changed this morning. He is no specific discomfort in his feet. After nausea medication he states he was feeling much better. He was able to tolerate oral intake. There was no indication to change any of his medications. His blood sugars relatively well controlled. Patient does need to continue to take his antibiotics and now that his nausea is controlled he can continue to do that at home. There is no indication for admission to the hospital today however he was given specific return precautions. He expressed understanding and agreement. Discharge Plan Departure Patient Disposition: Home Clinical Impression: Nausea and vomiting Instructions: Nausea and Vomiting-Adult Activity Restrictions/Additional Instructions: I recommend that you continue to take all of your medications as directed. I also recommend a bland diet. Use the nausea medication as needed. Return to the emergency department for new symptoms. Prescriptions: New ondansetron 4 mg tablet,disintegrating 4 mg PO Q6H PRN (Reason: nausea and vomiting) Qty: 14 0RF No Action metformin 500 mg Tablet 850 mg PO BID Rx Instructions: states he takes 850 mg carvedilol 25 mg Tablet 25 mg PO 1300 amlodipine 10 mg Tablet 10 mg PO DAILY lisinopril 40 mg Tablet 40 mg PO QAM ondansetron 4 mg tablet,disintegrating 4 mg translingual Q8HR PRN (Reason: nausea/vomting) Patient Comments: DISSOLVE ONE TABLET IN MOUTH EVERY EIGHT HOURS NEEDED FOR NAUSEA AND VOMITING. Novolog PenFill U-100 Insulin 12 - 15 units SUBCUT BID Rx Instructions: Takes before each meals. Tomary SoloStar U-300 Insulin 300 unit/mL (1.5 mL) Insulin Pen 12 unit SUBCUT BID promethazine 25 mg tablet 25 mg PO Q6H PRN (Reason: nausea and vomiting) Qty: 14 0RF metoclopramide HCl 10 mg tablet 10 mg PO QACHS Qty: 120 0RF ondansetron 4 mg tablet,disintegrating 4 mg PO Q8H PRN (Reason: nausea and vomiting) Qty: 30 1RF Referrals: Toño Ovalles MD [Primary Care Provider] - Stand Alone Forms: Patient Portal/API
[2022-08-22] MEDS: ONDANSETRON 4 MG ODT PREPACK 1 BOTTLE MISC (22:22)
== END 2022-08-22 22:29 | disposition home or self-care (01) ==
PROVIDERS: Emergency Provider Emergency Medicine; PCP Family Medicine
DX: R11.2 Nausea with vomiting, unspecified (principal); R00.0 Tachycardia, unspecified
CPT/HCPCS: 36415; 71045; 80053; 83605; 83690; 84145; 85025; 85610; 85730; 87040; 93005; 96360; 96361; 99284

== ENCOUNTER 2022-08-25 14:52 | Emergency (ER) | payer OTHER, SELFPAY ==
[2022-03-13 04:42] VITALS: BMI 37.3
[2022-08-25] VITALS (10 sets, daily range): BP systolic 156–205; BP diastolic 89–117; PULSE 97–106; RESP 18–24; TEMP 36.6–38.1; O2SAT 93–99; BMI 36.9
--- NOTE | 2022-08-25 15:51 | DI.RAD.S_ITS ---
PROCEDURE: XR CHEST 1V INDICATIONS: chest pain TECHNIQUE: One view of the chest was acquired. COMPARISON: [facility], CR, XR CHEST 1V, 08/22/2022, 20:01. [facility], CR, XR CHEST 1V, 03/11/2022, 3:52. FINDINGS: Surgical changes and devices: None. Lungs and pleura: Lungs are clear. No pleural effusions or pneumothorax. Mediastinum: Mediastinal contours appear normal. Heart size is normal. Bones and chest wall: No suspicious bony lesions. Overlying soft tissues appear unremarkable. IMPRESSION: Normal for age, source of current chest pain symptoms is not seen. Dictated by: Miles Arroyo M.D. on 08/25/2022 at 16:43 Approved by: Miles Arroyo M.D. on 08/25/2022 at 16:43
[2022-08-25 16:52] LABS: INR 1.3 (0.9-1.3); Prothrombin Time 14.5 SECONDS (10.1-12.7)
[2022-08-25 16:53] LABS: Add Manual Diff / Slide Review NO; Basophils Absolute Auto 0 /uL (0-100); Basophils Percent Auto 0.1 % (0-2); Eosinophils Absolute Auto 0 /uL (0-450); Eosinophils Percent Auto 0.1 % (2-4); Hematocrit 37.8 % (41-53); Hemoglobin 12.9 g/dL (13.5-17.5); Lymphocytes Absolute Auto 800 /uL (1100-4500); Lymphocytes Percent Auto 7.1 % (25-40); Mean Corpuscular HGB Conc 34.1 % (30-36); Mean Corpuscular Hemoglobin 27.8 PG (26-34); Mean Corpuscular Volume 81.5 fL (80-100); Monocytes Absolute Auto 900 /uL (0-900); Monocytes Percent Auto 8.1 % (3-14); Neutrophils Absolute Auto 9500 /uL (1500-7000); Neutrophils Percent Auto 84.6 % (50-75); Platelet Count 301 X10^3/uL (150-400); Red Blood Cell Count 4.64 X10^6/uL (4.5-5.9); Red Cell Distribution Width 13.7 % (11.6-14.8); White Blood Cell Count 11.2 X10^3/uL (4.5-11.0)
[2022-08-25 16:55] LABS: PTT Partial Thromboplastin Tim 29 SECONDS (26-36)
[2022-08-25 16:58] LABS: Alanine Aminotransferase 28 IU/L (<50); Albumin 4.3 g/dL (3.5-5.0); Albumin Globulin Ratio 0.9 (1.0-2.8); Alkaline Phosphatase 54 U/L (38-126); Aspartate Aminotransferase 34 IU/L (17-59); Bilirubin Total 1.8 mg/dL (0.2-1.3); Blood Urea Nitrogen 22 mg/dL (9-20); Calcium 9.1 mg/dL (8.4-10.2); Carbon Dioxide 30 mmol/L (22-32); Chloride 94 mmol/L (98-107); Creatine Kinase 95 U/L (55-170); Estimated Glomerular Filt Rate > 60 mL/min (>60); Globulin 4.7 g/dL (1.7-4.1); Glucose 211 mg/dL (70-100); HEMOLYSIS 44 (0-50); Lipase 64 U/L (23-300); Magnesium 1.7 mg/dL (1.6-2.3); Potassium 4.7 mmol/L (3.4-5.1); Sodium 133 mmol/L (137-145)
[2022-08-25 17:08] LABS: Troponin I < 0.012 ng/mL (0.01-0.034)
[2022-08-25] MEDS: SODIUM CHLORIDE 0.9% 1,000 ML 1000 ML IV ×2 (17:44→18:55)
[2022-08-25] MEDS: ONDANSETRON 4 MG/2 ML INJ IV (17:44)
--- NOTE | 2022-08-25 17:44 | PC.NURSE ---
roomed to rm 4. noted to have shaking chills. temp oral 100.6. Dr Salcedo aware. Verbal order for cultures x 2, procalcitonin, lactate, 1L NS bolus at this time, and zofran 4mg. Lab called for 2nd set of blood cultures
[2022-08-25 18:03] LABS: Lactate (Lactic Acid) 1.1 mmol/L (0.7-2.1)
[2022-08-25 18:21] LABS: Procalcitonin 0.15 ng/mL (<0.5)
--- NOTE | 2022-08-25 18:23 | ED.GENADULT ---
HPI - General Adult General Chief complaint: Nausea/Vomiting/Diarrhea Stated complaint: N/V/fatigue Time Seen by Provider: 08/25/22 18:02 Source: patient Mode of arrival: Ambulatory History of Present Illness HPI narrative: 52-year-old insulin-dependent type 2 diabetic with poorly controlled diabetes, chronic wounds of the lower extremities followed by Wound Care, hypertension, coronary artery disease presents continuing to complain of nausea vomiting and not feeling well overall. He was seen for the same on August 22 in this department. He is started on doxycycline 24 hours prior to this for foot wound. He has been on doxycycline before and it has not caused nausea. Related Data Home Medications Medication Instructions Recorded Confirmed amlodipine 10 mg tablet 10 mg PO DAILY 03/14/18 08/12/22 carvedilol 25 mg tablet 25 mg PO 1300 03/14/18 08/12/22 lisinopril 40 mg tablet 40 mg PO QAM 03/14/18 08/12/22 metformin 500 mg tablet 850 mg PO BID 03/14/18 03/13/22 Novolog PenFill U-100 Insulin 12 - 15 units SUBCUT BID 09/30/19 03/13/22 insulin glargine U-300 conc 300 12 unit SUBCUT BID 03/13/22 03/13/22 unit/mL (1.5 mL) subcutaneous pen (Toujeo SoloStar U-300 Insulin) ondansetron 4 mg disintegrating 4 mg translingual Q8HR PRN 08/12/22 08/12/22 tablet nausea/vomting Previous Rx's Medication Instructions Recorded promethazine 25 mg tablet 25 mg PO Q6H PRN nausea and 03/28/22 vomiting #14 tabs metoclopramide HCl 10 mg tablet 10 mg PO QACHS #120 tabs 06/15/22 ondansetron 4 mg disintegrating 4 mg PO Q8H PRN nausea and 06/15/22 tablet vomiting #30 tabs ondansetron 4 mg disintegrating 4 mg PO Q6H PRN nausea and 08/22/22 tablet vomiting #14 tabs metoclopramide HCl 10 mg tablet 10 mg PO QACHS #90 tabs 08/25/22 Allergies Allergy/AdvReac Type Severity Reaction Status Date / Time No Known Drug Allergies Allergy Verified 08/22/22 19:34 Review of Systems Review of Systems Narrative: Pertinent positive and negative findings as per HPI Patient History Medical History Congestive heart failure COVID Diabetes mellitus Hypertension Ulcer of left lower leg Ulcer of right leg Surgical History History of foot surgery Family History Father Myocardial infarction Mother Diabetes mellitus Brother Diabetes mellitus Social History household members: spouse and children Smoking Status: Former smoker alcohol intake: never Smoking Status: Former smoker tobacco type: cigarettes alcohol intake frequency: other Substance Use Type: marijuana Exam Initial Vital Signs Initial Vital Signs: Vital Signs Temperature 97.8 F 08/25/22 14:56 Pulse Rate 97 H 08/25/22 14:56 Respiratory Rate 18 08/25/22 14:56 Blood Pressure 156/89 H 08/25/22 14:56 Pulse Oximetry 99 08/25/22 14:56 Oxygen Delivery Method Room Air 08/25/22 14:56 General: Chronically ill-appearing, fatigued but in no acute distress. Able to give a complete and coherent history. HEENT: Moist mucous membranes, normal sclera with reactive pupils, Respiratory: Lungs are clear to auscultation, no wheezing no rales no rhonchi. Full and symmetrical air movement Cardiac: Regular rate and rhythm no murmurs no bruits Abdomen: Soft, nontender, good bowel tones, no flank pain Skin: Warm and dry, no rashes Neurologic: Grossly neurologically intact with no obvious asymmetries or abnormalities Extremities: No trauma, well perfused Psych: Cooperative, appropriate insight and affect Course Orders Ordered: ED Orders 08/25/22 15:17 Complete Blood Count AUTO DIFF Stat Comprehensive Metabolic Panel Stat Lactate (Lactic Acid) Stat Lipase Stat Magnesium Stat PTT Partial Thromboplastin Sonny Stat Procalcitonin Stat Prothrombin Time INR Stat Troponin & CK Cardiac Panel Stat 08/25/22 15:51 XR chest 1V Stat 08/25/22 17:45 Blood Culture Stat Discontinued Medications Amlodipine Besylate (Amlodipine 5 Mg Tablet) 10 mg PO NOW ONE Stop: 08/25/22 18:38 Last Admin: 08/25/22 18:54 Dose: 10 mg Documented By: MIKHAIL Carvedilol (Carvedilol 12.5 Mg Tablet) 25 mg PO NOW ONE Stop: 08/25/22 18:38 Last Admin: 08/25/22 18:54 Dose: 25 mg Documented By: MIKHAIL Sodium Chloride (Normal Saline 0.9%) 1,000 mls @ 1,000 mls/hr IV BOLUS ONE Stop: 08/25/22 18:26 Last Infusion: 08/25/22 18:29 Dose: 0 mls/hr Documented By: Admin: 08/25/22 17:44 Dose: 1,000 mls/hr Documented By: ELAINE Sodium Chloride (Normal Saline 0.9%) 1,000 mls @ 1,000 mls/hr IV BOLUS ONE Stop: 08/25/22 19:36 Last Infusion: 08/25/22 20:09 Dose: 0 mls/hr Documented By: Admin: 08/25/22 18:55 Dose: 1,000 mls/hr Documented By: MIKHAIL Lisinopril (Lisinopril 20 Mg Tablet) 40 mg PO NOW ONE Stop: 08/25/22 18:38 Last Admin: 08/25/22 18:54 Dose: 40 mg Documented By: MIKHAIL Metoclopramide HCl (Metoclopramide 10 Mg/2 Ml Inj) 10 mg IV NOW ONE Stop: 08/25/22 18:38 Last Admin: 08/25/22 18:53 Dose: 10 mg Documented By: MIKHAIL Ondansetron HCl (Ondansetron 4 Mg/2 Ml Inj) 4 mg IV NOW ONE Stop: 08/25/22 17:28 Last Admin: 08/25/22 17:44 Dose: 4 mg Documented By: ELAINE Vital Signs Vital signs: Vital Signs - 8 hr 08/25/22 14:56 08/25/22 17:22 08/25/22 17:23 Temperature 97.8 F Pulse Rate 97 H 99 H 99 H Respiratory Rate 18 Blood Pressure 156/89 H Pulse Oximetry 99 99 98 Oxygen Delivery Method Room Air 08/25/22 17:24 08/25/22 19:00 08/25/22 19:00 Temperature 100.6 F H Pulse Rate 106 H Respiratory Rate 23 Blood Pressure 184/103 H 205/110 H Pulse Oximetry Oxygen Delivery Method 08/25/22 19:12 08/25/22 19:12 08/25/22 19:30 Temperature Pulse Rate 106 H Respiratory Rate Blood Pressure 194/117 H 187/100 H Pulse Oximetry 97 Oxygen Delivery Method Room Air 08/25/22 19:30 Temperature Pulse Rate 102 H Respiratory Rate 20 Blood Pressure Pulse Oximetry 95 Oxygen Delivery Method Room Air Medical Decision Making Lab Data 08/25/22 15:17 08/25/22 15:17 Labs: Lab Results 08/25/22 08/25/22 08/25/22 Range/Units 15:17 15:17 15:17 WBC 11.2 H (4.5-11.0) X10^3/uL RBC 4.64 (4.5-5.9) X10^6/uL Hgb 12.9 L (13.5-17.5) g/dL Hct 37.8 L (41-53) % MCV 81.5 (80-100) fL MCH 27.8 (26-34) PG MCHC 34.1 (30-36) % RDW 13.7 (11.6-14.8) % Plt Count 301 (150-400) X10^3/uL Neut % (Auto) 84.6 H (50-75) % Lymph % (Auto) 7.1 L (25-40) % Rincon % (Auto) 8.1 (3-14) % Eos % (Auto) 0.1 L (2-4) % Baso % (Auto) 0.1 (0-2) % Neut # (Auto) 9500 H (0549-3483) /uL Lymph # (Auto) 800 L (7842-4175) /uL Rincon # (Auto) 900 (0-900) /uL Eos # (Auto) 0 (0-450) /uL Baso # (Auto) 0 (0-100) /uL PT 14.5 H (10.1-12.7) SECONDS INR 1.3 (0.9-1.3) APTT 29 (26-36) SECONDS Sodium 133 L (137-145) mmol/L Potassium 4.7 (3.4-5.1) mmol/L Chloride 94 L (98-107) mmol/L Carbon Dioxide 30 (22-32) mmol/L BUN 22 H (9-20) mg/dL Creatinine 1.16 (0.66-1.25) mg/dL Estimated GFR > 60 (>60) mL/min BUN/Creatinine Ratio 19.0 (6-22) Glucose 211 H (70-100) mg/dL Lactate (0.7-2.1) mmol/L Calcium 9.1 (8.4-10.2) mg/dL Magnesium 1.7 (1.6-2.3) mg/dL Total Bilirubin 1.8 H (0.2-1.3) mg/dL AST 34 (17-59) IU/L ALT 28 (<50) IU/L Alkaline Phosphatase 54 (38-126) U/L Total Creatine Kinase 95 (55-170) U/L Troponin I < 0.012 (0.01-0.034) ng/mL Total Protein 9.0 H (6.3-8.2) g/dL Albumin 4.3 (3.5-5.0) g/dL Globulin 4.7 H (1.7-4.1) g/dL Albumin/Globulin Ratio 0.9 L (1.0-2.8) Lipase 64 (23-300) U/L Procalcitonin (<0.5) ng/mL 08/25/22 08/25/22 Range/Units 15:17 15:17 WBC (4.5-11.0) X10^3/uL RBC (4.5-5.9) X10^6/uL Hgb (13.5-17.5) g/dL Hct (41-53) % MCV (80-100) fL MCH (26-34) PG MCHC (30-36) % RDW (11.6-14.8) % Plt Count (150-400) X10^3/uL Neut % (Auto) (50-75) % Lymph % (Auto) (25-40) % Rincon % (Auto) (3-14) % Eos % (Auto) (2-4) % Baso % (Auto) (0-2) % Neut # (Auto) (8326-6243) /uL Lymph # (Auto) (5349-9689) /uL Rincon # (Auto) (0-900) /uL Eos # (Auto) (0-450) /uL Baso # (Auto) (0-100) /uL PT (10.1-12.7) SECONDS INR (0.9-1.3) APTT (26-36) SECONDS Sodium (137-145) mmol/L Potassium (3.4-5.1) mmol/L Chloride (98-107) mmol/L Carbon Dioxide (22-32) mmol/L BUN (9-20) mg/dL Creatinine (0.66-1.25) mg/dL Estimated GFR (>60) mL/min BUN/Creatinine Ratio (6-22) Glucose (70-100) mg/dL Lactate 1.1 (0.7-2.1) mmol/L Calcium (8.4-10.2) mg/dL Magnesium (1.6-2.3) mg/dL Total Bilirubin (0.2-1.3) mg/dL AST (17-59) IU/L ALT (<50) IU/L Alkaline Phosphatase (38-126) U/L Total Creatine Kinase (55-170) U/L Troponin I (0.01-0.034) ng/mL Total Protein (6.3-8.2) g/dL Albumin (3.5-5.0) g/dL Globulin (1.7-4.1) g/dL Albumin/Globulin Ratio (1.0-2.8) Lipase (23-300) U/L Procalcitonin 0.15 (<0.5) ng/mL MDM Narrative Medical decision making narrative: CC: Nausea vomiting weakness, acute issue uncertain prognosis Complicating co-morbidities: Poorly-controlled diabetes, hypertension, hyperlipidemia, chronic wounds lower extremities followed by wound care Data collected from: patient, Social determinants of health that may influence the patients condition: 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 Reviewing prior diagnostic reports he has had a smattering of abdominal CT scans March-none of these have had dramatic abnormalities or changes appreciated Differential considered: Gastroparesis, infection, acute surgical abdomen, Exam documented above, pertinent findings include: Fatigued appearing but alert appropriate, fresh wound care dressings bilaterally both lower extremities not removed today Lab Test results independently reviewed as above. Pertinent findings: CBC shows mild leukocytosis at 11.2 with left shift at 84.6. Mild chronic anemia Chemistries are fairly reassuring, mildly elevated BUN but normal creatinine. Lactic acid is not elevated Bilirubin is elevated at 1.8 however AST ALT and alk-phos are all within normal limits. Troponin is unremarkable Imaging studies independently reviewed: Chest x-ray shows no acute abnormalities Treatments: Fluids, parenteral ondansetron and Reglan Re-evaluations: 820 pm after 2 L of fluid the Reglan with this last dose patient is feeling significantly improved Discussion: Patient feels slightly better after initial saline bolus but still feels like he is dehydrated and has no need to spontaneously void. He states he took 1 of his blood pressure medications but not the other. He notes that in the past he is used Zofran and it tends to not be on that effective. It does not look like he has had much of a consideration for simply diabetic gastroparesis with scheduled Reglan. Will try an additional L of fluid with IV Reglan. We will give him his usual medications to see if we get his blood pressure down. At this point I am seeing no evidence of bowel obstruction, acute surgical abdomen, sepsis, renal failure or acute coronary syndrome. Given almost yearly abdominal CT scans over the last year with similar complaints no significant findings and benign abdominal exam do not see any any indication for advanced imaging at this time. Findings reviewed with patient. Given just the progressive decline with persistent nausea symptoms I suspect that diabetic gastroparesis is playing more of a role in his chronic symptoms and initially appreciated. I am going to have him start on Reglan before meals and as needed for nausea and have suggested that he follow-up with his primary care doctor at [place] and discuss need for gastroenterology consultation for his persistent nausea and GI discomfort.. With no current signs of infection, blood pressure responding appropriately to his usual oral medications, no acute coronary syndrome, any type of bowel obstruction I believe he is safe for discharge home. All of this is reviewed in detail with him. Questions are answered. Discharge Plan Departure Patient Disposition: Home Clinical Impression: Diabetic gastroparesis, Nausea & vomiting, Malaise and fatigue, Hypertension Instructions: DI for Gastroparesis Activity Restrictions/Additional Instructions: Thank you for coming in today Your workup does not show any life-threatening abnormalities. Specifically there is no signs of sepsis or spreading infection, no acute coronary syndrome, acute kidney failure, electrolyte abnormalities or reasons for additional imaging or hospitalization. I am concerned that part of this chronic nausea and malaise is related to diabetic gastroparesis. One of the medications that we frequently use to help treat this is metoclopramide/Reglan. I am going to suggest that you take 10 mg of this prior to eating and any time you are feeling particularly nauseated up to a total of 4 pills daily. Please keep track of how it is helping. This prescription was electronically transmitted to [facility] I would very much like you to follow-up with Dr. [place]valles [place]. I believe that is time for outpatient Gastroenterology consultation for you. If you find that you are getting worse or develop any new symptoms, please feel free to return to the emergency department for further evaluation. Prescriptions: New metoclopramide HCl 10 mg tablet 10 mg PO QACHS Qty: 90 0RF No Action metformin 500 mg Tablet 850 mg PO BID Rx Instructions: states he takes 850 mg carvedilol 25 mg Tablet 25 mg PO 1300 amlodipine 10 mg Tablet 10 mg PO DAILY lisinopril 40 mg Tablet 40 mg PO QAM ondansetron 4 mg tablet,disintegrating 4 mg translingual Q8HR PRN (Reason: nausea/vomting) Patient Comments: DISSOLVE ONE TABLET IN MOUTH EVERY EIGHT HOURS NEEDED FOR NAUSEA AND VOMITING. Novolog PenFill U-100 Insulin 12 - 15 units SUBCUT BID Rx Instructions: Takes before each meals. Toujeo SoloStar U-300 Insulin 300 unit/mL (1.5 mL) Insulin Pen 12 unit SUBCUT BID promethazine 25 mg tablet 25 mg PO Q6H PRN (Reason: nausea and vomiting) Qty: 14 0RF metoclopramide HCl 10 mg tablet 10 mg PO QACHS Qty: 120 0RF ondansetron 4 mg tablet,disintegrating 4 mg PO Q8H PRN (Reason: nausea and vomiting) Qty: 30 1RF ondansetron 4 mg tablet,disintegrating 4 mg PO Q6H PRN (Reason: nausea and vomiting) Qty: 14 0RF Referrals: Toño Ovalles MD [Primary Care Provider] - Stand Alone Forms: Patient Portal/API
[2022-08-25] MEDS: METOCLOPRAMIDE 10 MG/2 ML INJ IV (18:53)
[2022-08-25] MEDS: lisinopriL 20 MG TABLET 40 MG PO (18:54)
[2022-08-25] MEDS: AMLODIPINE 5 MG TABLET 10 MG PO (18:54)
[2022-08-25] MEDS: carvediloL 12.5 MG TABLET 25 MG PO (18:54)
== END 2022-08-25 20:37 | disposition home or self-care (01) ==
PROVIDERS: Emergency Medicine; Emergency Provider Emergency Medicine; PCP Family Medicine
DX: E11.43 Type 2 diabetes mellitus with diabetic autonomic (poly)neuropathy (principal); R11.2 Nausea with vomiting, unspecified; R53.81 Other malaise; I10 Essential (primary) hypertension; R07.9 Chest pain, unspecified; R79.89 Other specified abnormal findings of blood chemistry; Z79.899 Other long term (current) drug therapy
CPT/HCPCS: 36415; 71045; 80053; 82550; 83605; 83690; 83735; 84145; 84484; 85025; 85610; 85730; 87040; 96361; 96374; 96375; 99284; J2405; J2765

== ENCOUNTER 2022-08-27 11:35 | Emergency (ER) | payer OTHER, SELFPAY ==
[2022-03-13 04:42] VITALS: BMI 37.3
[2022-08-27] VITALS (19 sets, daily range): BP systolic 156–193; BP diastolic 85–106; PULSE 79–91; RESP 13–20; TEMP 37.3; O2SAT 93–99; BMI 36.9
--- NOTE | 2022-08-27 12:04 | ED_ITS ---
HPI - Nausea/Vomiting/Diarrhea General Chief complaint: Nausea/Vomiting/Diarrhea Stated complaint: V/Dizzy T-7 3rd visit this wk Time Seen by Provider: 08/27/22 13:23 History of Present Illness HPI Narrative: Patient is a 52-year-old male history of insulin-dependent diabetes, hypertensi on, chronic leg wounds presenting here for the 5th time this month for the same problem of generalized weakness nausea vomiting. He has Reglan and Zofran at. He reports that he is having some vomiting he just generally does not feel well. He is not had fever or chills. Although he was here August 25 with a temperature of a 100.6? at time. Blood cultures from that visit are negative. He is never had evidence of DKA he does tolerate some fluids no significant MICHAEL I presenting again today for the same symptoms he has been having. He reports that every time he leaves the emergency department he does not feel that great but feels better. He was last diagnosed with diabetic gastroparesis and was given Reglan. He reports that Reglan does not helping. He is not having any chest pain palpitations or shortness of breath. He has low-grade temperature of 99.1?. Related Data Home Medications Medication Instructions Recorded Confirmed amlodipine 10 mg tablet 10 mg PO DAILY 03/14/18 08/12/22 carvedilol 25 mg tablet 25 mg PO 1300 03/14/18 08/12/22 lisinopril 40 mg tablet 40 mg PO QAM 03/14/18 08/12/22 metformin 500 mg tablet 850 mg PO BID 03/14/18 03/13/22 Novolog PenFill U-100 Insulin 12 - 15 units SUBCUT BID 09/30/19 03/13/22 insulin glargine U-300 conc 300 12 unit SUBCUT BID 03/13/22 03/13/22 unit/mL (1.5 mL) subcutaneous pen (Theodore SolAdams U-300 Insulin) ondansetron 4 mg disintegrating 4 mg translingual Q8HR PRN 08/12/22 08/12/22 tablet nausea/vomting Previous Rx's Medication Instructions Recorded promethazine 25 mg tablet 25 mg PO Q6H PRN nausea and 03/28/22 vomiting #14 tabs metoclopramide HCl 10 mg tablet 10 mg PO QACHS #120 tabs 06/15/22 ondansetron 4 mg disintegrating 4 mg PO Q8H PRN nausea and 06/15/22 tablet vomiting #30 tabs ondansetron 4 mg disintegrating 4 mg PO Q6H PRN nausea and 08/22/22 tablet vomiting #14 tabs metoclopramide HCl 10 mg tablet 10 mg PO QACHS #90 tabs 08/25/22 Allergies Allergy/AdvReac Type Severity Reaction Status Date / Time No Known Drug Allergies Allergy Verified 08/22/22 19:34 Review of Systems Review of Systems ROS Unobtainable: All systems reviewed & are unremarkable except as noted in HPI and below Patient History Medical History Congestive heart failure COVID Diabetes mellitus Hypertension Ulcer of left lower leg Ulcer of right leg Surgical History History of foot surgery Family History Father Myocardial infarction Mother Diabetes mellitus Brother Diabetes mellitus Social History household members: spouse and children Smoking Status: Former smoker alcohol intake: never Smoking Status: Former smoker tobacco type: cigarettes alcohol intake frequency: other Substance Use Type: marijuana Exam Initial Vital Signs Initial Vital Signs: Vital Signs Temperature 99.1 F 08/27/22 11:45 Pulse Rate 91 H 08/27/22 11:45 Respiratory Rate 18 08/27/22 11:45 Blood Pressure 193/98 H 08/27/22 11:45 Pulse Oximetry 98 08/27/22 11:45 Oxygen Delivery Method Room Air 08/27/22 11:45 GENERAL: Alert 52-year-old male and in no acute distress. HEENT: Head atraumatic,EOMI, pupils reactive, face symmetric, moist mucous membranes CARDIOVASCULAR: Regular rate and rhythm without murmurs, rubs or gallops. RESPIRATORY: Breath sounds equal bilaterally, no wheezes rales or rhonchi. ABDOMEN: Soft, nontender. Normoactive bowel sounds all 4 quadrants. No guarding or rebound. EXTREMITIES: Normal range of motion, no clubbing or edema. Neurovascularly int act NEUROLOGICAL: Alert and oriented x4 SKIN: Warm, dry, no laceration, no petechiae, no rashes or lesions. Course Orders Ordered: ED Orders 08/27/22 12:00 Complete Blood Count AUTO DIFF Stat Comprehensive Metabolic Panel Stat Lactate (Lactic Acid) Stat Lipase Stat Procalcitonin Stat 08/27/22 12:16 EKG-12 Lead Stat 08/27/22 13:30 CT abdomen pelvis w con Stat 08/27/22 14:39 Respiratory Panel (Film Array) Stat 08/27/22 16:43 Ictotest Urine Stat Urinalysis and Microscopic Stat Discontinued Medications Sodium Chloride (Normal Saline 0.9%) 1,000 mls @ 1,000 mls/hr IV BOLUS ONE Stop: 08/27/22 14:29 Last Admin: 08/27/22 14:15 Dose: 1,000 mls/hr Documented By: LETITIA Ondansetron HCl (Ondansetron 4 Mg Odt) 4 mg PO NOW PRN PRN Reason: Nausea And Vomiting Ondansetron HCl (Ondansetron 4 Mg/2 Ml Inj) 4 mg IV NOW PRN PRN Reason: Nausea And Vomiting Vital Signs Vital signs: Vital Signs - 8 hr 08/27/22 11:45 08/27/22 11:54 08/27/22 11:55 Temperature 99.1 F Pulse Rate 91 H 87 86 Respiratory Rate 18 13 14 Blood Pressure 193/98 H Pulse Oximetry 98 99 98 Oxygen Delivery Method Room Air 08/27/22 11:55 08/27/22 12:00 08/27/22 12:00 Temperature Pulse Rate 84 Respiratory Rate 15 Blood Pressure 168/95 H 172/94 H Pulse Oximetry 97 Oxygen Delivery Method 08/27/22 12:27 08/27/22 12:27 08/27/22 12:30 Temperature Pulse Rate 82 80 Respiratory Rate 16 20 Blood Pressure 171/95 H Pulse Oximetry 96 95 Oxygen Delivery Method 08/27/22 12:40 08/27/22 12:40 08/27/22 13:00 Temperature Pulse Rate 79 Respiratory Rate 19 Blood Pressure 156/85 H 160/86 H Pulse Oximetry 96 Oxygen Delivery Method 08/27/22 13:00 08/27/22 13:20 08/27/22 13:20 Temperature Pulse Rate 80 82 Respiratory Rate 18 17 Blood Pressure 164/93 H Pulse Oximetry 95 95 Oxygen Delivery Method 08/27/22 13:30 08/27/22 14:00 08/27/22 14:30 Temperature Pulse Rate 84 83 80 Respiratory Rate 16 17 18 Blood Pressure Pulse Oximetry 94 96 95 Oxygen Delivery Method 08/27/22 15:00 08/27/22 15:30 08/27/22 16:00 Temperature Pulse Rate 80 80 86 Respiratory Rate 19 19 13 Blood Pressure Pulse Oximetry 93 94 98 Oxygen Delivery Method 08/27/22 16:02 08/27/22 17:27 08/27/22 17:28 Temperature Pulse Rate 85 87 Respiratory Rate 17 Blood Pressure 187/106 H Pulse Oximetry 96 97 Oxygen Delivery Method 08/27/22 17:30 Temperature Pulse Rate 87 Respiratory Rate Blood Pressure Pulse Oximetry 97 Oxygen Delivery Method MDM - Nausea/Vomiting/Diarrhea Lab Data 08/27/22 12:00 08/27/22 12:00 Labs: Lab Results 08/27/22 08/27/22 08/27/22 Range/Units 12:00 12:00 12:00 WBC 15.1 H (4.5-11.0) X10^3/uL RBC 4.30 L (4.5-5.9) X10^6/uL Hgb 12.1 L (13.5-17.5) g/dL Hct 35.3 L (41-53) % MCV 82.1 (80-100) fL MCH 28.1 (26-34) PG MCHC 34.2 (30-36) % RDW 13.6 (11.6-14.8) % Plt Count 315 (150-400) X10^3/uL Neut % (Auto) 83.0 H (50-75) % Lymph % (Auto) 8.5 L (25-40) % Sawyer % (Auto) 7.9 (3-14) % Eos % (Auto) 0.2 L (2-4) % Baso % (Auto) 0.4 (0-2) % Neut # (Auto) 66899 H (6096-5714) /uL Lymph # (Auto) 1300 (9258-2918) /uL Sawyer # (Auto) 1200 H (0-900) /uL Eos # (Auto) 0 (0-450) /uL Baso # (Auto) 100 (0-100) /uL Sodium 134 L (137-145) mmol/L Potassium 4.5 (3.4-5.1) mmol/L Chloride 95 L (98-107) mmol/L Carbon Dioxide 30 (22-32) mmol/L BUN 22 H (9-20) mg/dL Creatinine 1.05 (0.66-1.25) mg/dL Estimated GFR > 60 (>60) mL/min BUN/Creatinine Ratio 21.0 (6-22) Glucose 189 H (70-100) mg/dL Lactate 1.5 (0.7-2.1) mmol/L Calcium 8.7 (8.4-10.2) mg/dL Total Bilirubin 2.2 H (0.2-1.3) mg/dL AST 27 (17-59) IU/L ALT 26 (<50) IU/L Alkaline Phosphatase 60 (38-126) U/L Total Protein 7.4 (6.3-8.2) g/dL Albumin 3.5 (3.5-5.0) g/dL Globulin 3.9 (1.7-4.1) g/dL Albumin/Globulin Ratio 0.9 L (1.0-2.8) Lipase 39 (23-300) U/L Procalcitonin (<0.5) ng/mL Urine Color Urine Appearance Urine pH (4.5-8.0) Ur Specific [place] (1.000-1.035) Urine Protein (Negative) Urine Glucose (UA) (Negative) g/dL Urine Ketones (NEGATIVE) Urine Occult Blood (Negative) Urine Nitrate (Negative) Urine Bilirubin (NEGATIVE) Ur Bilirubin Confirm (Negative) Urine Urobilinogen (0.2) E.U./dL Ur Leukocyte Esterase (NEGATIVE) Urine RBC (0-5/HPF) Urine WBC (0-5/HPF) Ur Squamous Epith Cells (0-5/HPF) Amorphous Sediment Urine Bacteria (None) Urine Mucus (Negative) Ur Culture Indicated? Chlamy pneumoniae PCR (Not Detect) Adenovirus (PCR) (Not Detect) B. pertussis DNA (PCR) (Not Detecte) B.parapertussis DNA PCR (Not Detecte) Coronavirus OC43 (PCR) (Not Detect) Coronavirus HKU1 (PCR) (Not Detect) Coronavirus 229E (PCR) (Not Detect) SARS-CoV-2 (PCR) (Not Detecte) Coronavirus NL63 (PCR) (Not Detect) Human Metapneumovir PCR (Not Detect) Influenza Type A (PCR) (Not Detect) Influenza Type B (PCR) (Not Detect) M. pneumoniae (PCR) (Not Detect) Parainfluenza 1 (PCR) (Not Detect) Parainfluenza 2 (PCR) (Not Detect) Parainfluenza 3 (PCR) (Not Detect) Parainfluenza 4 (PCR) (Not Detect) RSV (PCR) (Not Detect) Entero/Rhino (PCR) (Not Detect) 08/27/22 08/27/22 08/27/22 Range/Units 12:00 14:39 16:43 WBC (4.5-11.0) X10^3/uL RBC (4.5-5.9) X10^6/uL Hgb (13.5-17.5) g/dL Hct (41-53) % MCV (80-100) fL MCH (26-34) PG MCHC (30-36) % RDW (11.6-14.8) % Plt Count (150-400) X10^3/uL Neut % (Auto) (50-75) % Lymph % (Auto) (25-40) % Sawyer % (Auto) (3-14) % Eos % (Auto) (2-4) % Baso % (Auto) (0-2) % Neut # (Auto) (5199-3498) /uL Lymph # (Auto) (1802-5970) /uL Sawyer # (Auto) (0-900) /uL Eos # (Auto) (0-450) /uL Baso # (Auto) (0-100) /uL Sodium (137-145) mmol/L Potassium (3.4-5.1) mmol/L Chloride (98-107) mmol/L Carbon Dioxide (22-32) mmol/L BUN (9-20) mg/dL Creatinine (0.66-1.25) mg/dL Estimated GFR (>60) mL/min BUN/Creatinine Ratio (6-22) Glucose (70-100) mg/dL Lactate (0.7-2.1) mmol/L Calcium (8.4-10.2) mg/dL Total Bilirubin (0.2-1.3) mg/dL AST (17-59) IU/L ALT (<50) IU/L Alkaline Phosphatase (38-126) U/L Total Protein (6.3-8.2) g/dL Albumin (3.5-5.0) g/dL Globulin (1.7-4.1) g/dL Albumin/Globulin Ratio (1.0-2.8) Lipase (23-300) U/L Procalcitonin 0.32 (<0.5) ng/mL Urine Color Yellow Urine Appearance Clear Urine pH 5.5 (4.5-8.0) Ur Specific [place] 1.020 (1.000-1.035) Urine Protein 1+ H (Negative) Urine Glucose (UA) Trace H (Negative) g/dL Urine Ketones Negative (NEGATIVE) Urine Occult Blood 3+ H (Negative) Urine Nitrate Negative (Negative) Urine Bilirubin 1+ H (NEGATIVE) Ur Bilirubin Confirm Negative (Negative) Urine Urobilinogen 4.0 H (0.2) E.U./dL Ur Leukocyte Esterase Negative (NEGATIVE) Urine RBC 5-10/hpf H (0-5/HPF) Urine WBC 0-1/hpf (0-5/HPF) Ur Squamous Epith Cells None seen (0-5/HPF) Amorphous Sediment 1+ Urine Bacteria None seen (None) Urine Mucus 1+ H (Negative) Ur Culture Indicated? Cult not indicated Chlamy pneumoniae PCR Not detected (Not Detect) Adenovirus (PCR) Not detected (Not Detect) B. pertussis DNA (PCR) Not detected (Not Detecte) B.parapertussis DNA PCR Not detected (Not Detecte) Coronavirus OC43 (PCR) Not detected (Not Detect) Coronavirus HKU1 (PCR) Not detected (Not Detect) Coronavirus 229E (PCR) Not detected (Not Detect) SARS-CoV-2 (PCR) Not detected (Not Detecte) Coronavirus NL63 (PCR) Not detected (Not Detect) Human Metapneumovir PCR Not detected (Not Detect) Influenza Type A (PCR) Not detected (Not Detect) Influenza Type B (PCR) Not detected (Not Detect) M. pneumoniae (PCR) Not detected (Not Detect) Parainfluenza 1 (PCR) Not detected (Not Detect) Parainfluenza 2 (PCR) Not detected (Not Detect) Parainfluenza 3 (PCR) Not detected (Not Detect) Parainfluenza 4 (PCR) Not detected (Not Detect) RSV (PCR) Not detected (Not Detect) Entero/Rhino (PCR) Not detected (Not Detect) Urine Dip Bedside Urine Glucose Negative Bedside Urine Bilirubin - Negative Bedside Urine Ketone - Negative Urine Specific [place] 1.010 Bedside Urine Occult Blood +++ Bedside Urine pH 6.0 Bedside Urine Protein + 30 Bedside Urine Urobilinogen - Negative Bedside Urine Nitrite - Negative Bedside Urine Leukocytes - Negative Esterase Imaging Data CT scan - abdomen/pelvis: Radiologist's Impression: PROCEDURE:? CT ABDOMEN PELVIS W CON ? INDICATIONS:? Persistently nauseous ? TECHNIQUE:? After the administration of intravenous contrast, axial sections acquired from the lung bases to the pubic symphysis.? Coronal and sagittal reformats were performed.? For radiation dose reduction, the following was used:? automated exposure control, adjustment of mA and/or kV according to patient size.? ? COMPARISON:? [facility], CT, CT ABDOMEN PELVIS W CON, 03/13/2022, 1:09. ? FINDINGS:? Image quality:? Excellent.? ? Lung bases:? Unremarkable. Heart:? No significant findings. ? ABDOMEN: Liver:? Unremarkable.? ? Gallbladder:? Unremarkable.? ? Biliary ducts:? Unremarkable.? ? Pancreas:? Unremarkable.? ? Spleen:? Unremarkable.? ? Adrenal Glands:? Unremarkable.? ? Kidneys and Ureters:? No hydronephrosis.? ? No complex renal cystic lesions which require follow-up. ? Stomach and Bowel:? Stomach, small bowel loops, and colon are unremarkable.? Normal appendix Peritoneum:? No abnormal intraperitoneal fluid.? No free air.? ? Ventral Wall: ? Tiny umbilical hernia containing fat. Abdominal Nodes:? No retroperitoneal or mesenteric adenopathy by size criteria.? Vessels:? Aorta and inferior vena cava are normal in size.? ? PELVIS: Pelvic Organs:? Unremarkable.? ? Bladder:? Unremarkable.? ? Pelvic Nodes: No enlarged lymph nodes.? Miscellaneous: No hernias are seen. ? ? ? Bones:? Unremarkable.? IMPRESSION:? No acute abnormality. ? ? Dictated by: Redd Murphy M.D. on 08/27/2022 at 14:06 ? ? Approved by: Redd Murphy M.D. on 08/27/2022 at 14:08 ? ECG Data Interpretation: Sinus rhythm rate 83 CO interval 174 QRS [address] changes MDM Narrative Medical decision making narrative: Patient 52-year-old male history of diabetes presenting today with nausea vomiting generalized weakness. He has been here multiple times this month for the same. He is discharged every time. He apparently did not cotton picker his Reglan from last time. Low-grade fever today 99.1. Increasing leukocytosis today is 15.1 previously 11.2. Procalcitonin also seems to be rising but not yet positive today is 0.32 previously 0.15. He would blood cultures that were drawn 2 days ago they are negative. There is no evidence of DKA or hyperglycemia. Abdominal CT is negative. Viral panel is negative. I suspect g astroparesis as similar. He is tolerating fluids. There is no evidence of severe dehydration. I discussed case with Dr. Blue on-call hospitalist in regards to admission due to frequent ED visits however at this time there is no admission criteria that is met. Discharge Plan Departure Patient Disposition: Home Clinical Impression: Diabetic gastroparesis Instructions: Gastroparesis Activity Restrictions/Additional Instructions: *You have been diagnosed with gastroparesis *What to do: At this time you need to cotton picker your Reglan start taking it. You need to talk to your primary care provider for further outpatient studies and help. Please call them tomorrow *Continue to take medications as directed Reglan has been prescribed please go pick it up *Follow up with your primary care provider in 2-3 days or call [phone] *Return to ER if you should have inability to tolerate fluids despite medication, increasing abdominal pain or any new, worsening or concerning symptoms Prescriptions: No Action metformin 500 mg Tablet 850 mg PO BID Rx Instructions: states he takes 850 mg carvedilol 25 mg Tablet 25 mg PO 1300 amlodipine 10 mg Tablet 10 mg PO DAILY lisinopril 40 mg Tablet 40 mg PO QAM ondansetron 4 mg tablet,disintegrating 4 mg translingual Q8HR PRN (Reason: nausea/vomting) Patient Comments: DISSOLVE ONE TABLET IN MOUTH EVERY EIGHT HOURS NEEDED FOR NAUSEA AND VOMITING. Novolog PenFill U-100 Insulin 12 - 15 units SUBCUT BID Rx Instructions: Takes before each meals. Toujeo SoloStar U-300 Insulin 300 unit/mL (1.5 mL) Insulin Pen 12 unit SUBCUT BID promethazine 25 mg tablet 25 mg PO Q6H PRN (Reason: nausea and vomiting) Qty: 14 0RF metoclopramide HCl 10 mg tablet 10 mg PO QACHS Qty: 120 0RF ondansetron 4 mg tablet,disintegrating 4 mg PO Q8H PRN (Reason: nausea and vomiting) Qty: 30 1RF ondansetron 4 mg tablet,disintegrating 4 mg PO Q6H PRN (Reason: nausea and vomiting) Qty: 14 0RF metoclopramide HCl 10 mg tablet 10 mg PO QACHS Qty: 90 0RF Referrals: Toño Ovalles MD [Primary Care Provider] - Stand Alone Forms: Patient Portal/API
[2022-08-27 12:27] LABS: Add Manual Diff / Slide Review NO; Basophils Absolute Auto 100 /uL (0-100); Basophils Percent Auto 0.4 % (0-2); Eosinophils Absolute Auto 0 /uL (0-450); Eosinophils Percent Auto 0.2 % (2-4); Hematocrit 35.3 % (41-53); Hemoglobin 12.1 g/dL (13.5-17.5); Lymphocytes Absolute Auto 1300 /uL (1100-4500); Lymphocytes Percent Auto 8.5 % (25-40); Mean Corpuscular HGB Conc 34.2 % (30-36); Mean Corpuscular Hemoglobin 28.1 PG (26-34); Mean Corpuscular Volume 82.1 fL (80-100); Monocytes Absolute Auto 1200 /uL (0-900); Monocytes Percent Auto 7.9 % (3-14); Neutrophils Absolute Auto 12600 /uL (1500-7000); Platelet Count 315 X10^3/uL (150-400); Red Cell Distribution Width 13.6 % (11.6-14.8); White Blood Cell Count 15.1 X10^3/uL (4.5-11.0)
[2022-08-27 12:44] LABS: Lactate (Lactic Acid) 1.5 mmol/L (0.7-2.1)
[2022-08-27 12:46] LABS: Alanine Aminotransferase 26 IU/L (<50); Albumin 3.5 g/dL (3.5-5.0); Albumin Globulin Ratio 0.9 (1.0-2.8); Alkaline Phosphatase 60 U/L (38-126); Aspartate Aminotransferase 27 IU/L (17-59); Bilirubin Total 2.2 mg/dL (0.2-1.3); Blood Urea Nitrogen 22 mg/dL (9-20); Calcium 8.7 mg/dL (8.4-10.2); Carbon Dioxide 30 mmol/L (22-32); Chloride 95 mmol/L (98-107); Estimated Glomerular Filt Rate > 60 mL/min (>60); Globulin 3.9 g/dL (1.7-4.1); Glucose 189 mg/dL (70-100); HEMOLYSIS < 15 (0-50); Lipase 39 U/L (23-300); Potassium 4.5 mmol/L (3.4-5.1); Sodium 134 mmol/L (137-145); Total Protein 7.4 g/dL (6.3-8.2)
[2022-08-27 13:02] LABS: Procalcitonin 0.32 ng/mL (<0.5)
--- NOTE | 2022-08-27 13:30 | DI.CT.S_ITS ---
PROCEDURE: CT ABDOMEN PELVIS W CON INDICATIONS: Persistently nauseous TECHNIQUE: After the administration of intravenous contrast, axial sections acquired from the lung bases to the pubic symphysis. Coronal and sagittal reformats were performed. For radiation dose reduction, the following was used: automated exposure control, adjustment of mA and/or kV according to patient size. COMPARISON: [facility], CT, CT ABDOMEN PELVIS W CON, 03/13/2022, 1:09. FINDINGS: Image quality: Excellent. Lung bases: Unremarkable. Heart: No significant findings. ABDOMEN: Liver: Unremarkable. Gallbladder: Unremarkable. Biliary ducts: Unremarkable. Pancreas: Unremarkable. Spleen: Unremarkable. Adrenal Glands: Unremarkable. Kidneys and Ureters: No hydronephrosis. No complex renal cystic lesions which require follow-up. Stomach and Bowel: Stomach, small bowel loops, and colon are unremarkable. Normal appendix Peritoneum: No abnormal intraperitoneal fluid. No free air. Ventral Wall: Tiny umbilical hernia containing fat. Abdominal Nodes: No retroperitoneal or mesenteric adenopathy by size criteria. Vessels: Aorta and inferior vena cava are normal in size. PELVIS: Pelvic Organs: Unremarkable. Bladder: Unremarkable. Pelvic Nodes: No enlarged lymph nodes. Miscellaneous: No hernias are seen. Bones: Unremarkable. IMPRESSION: No acute abnormality. Dictated by: Redd Murphy M.D. on 08/27/2022 at 14:06 Approved by: Redd Murphy M.D. on 08/27/2022 at 14:08
[2022-08-27] MEDS: SODIUM CHLORIDE 0.9% 1,000 ML 1000 ML IV (14:15)
[2022-08-27 15:43] LABS: Adenovirus Not Detected (Not Detect); B. parapertussis Not Detected (Not Detecte); Bordetella pertussis Not Detected (Not Detecte); Chlamydophila pneumoniae Not Detected (Not Detect); Coronavirus 229E Not Detected (Not Detect); Coronavirus HKU1 Not Detected (Not Detect); Coronavirus NL 63 Not Detected (Not Detect); Coronavirus OC43 Not Detected (Not Detect); Human Metapneumovirus Not Detected (Not Detect); Human Rhinovirus/Enterovirus Not Detected (Not Detect); Influenza A Not Detected (Not Detect); Influenza B Not Detected (Not Detect); Mycoplasma pneumoniae Not Detected (Not Detect); Parainfluenza Virus 1 Not Detected (Not Detect); Parainfluenza Virus 2 Not Detected (Not Detect); Parainfluenza Virus 3 Not Detected (Not Detect); Parainfluenza Virus 4 Not Detected (Not Detect); Respiratory Syncytial Virus Not Detected (Not Detect); SARS- CoV-2 Not Detected (Not Detecte)
[2022-08-27 17:05] LABS: Appearance Urine UA CLEAR; Bilirubin Urine UA 1+ (NEGATIVE); Color Urine UA YELLOW; Glucose Urine UA TRACE g/dL (Negative); Ketones Urine UA NEGATIVE (NEGATIVE); Leukocyte Esterase Urine UA NEGATIVE (NEGATIVE); Nitrite Urine UA NEGATIVE (Negative); Occult Blood Urine UA 3+ (Negative); Protein Urine UA 1+ (Negative); pH Urine UA 5.5 (4.5-8.0)
[2022-08-27 17:17] LABS: Amorphous Sediment Urine 1+; Bacteria Urine None Seen; Ictotest Urine Negative (Negative); Mucus Urine 1+ (Negative); RBC Urine 5-10/HPF (0-5/HPF); Squamous Epithelial Cell Urine None Seen (0-5/HPF); WBC Urine 0-1/HPF (0-5/HPF)
[2022-08-27 17:18] LABS: Culture Indicated Urine Cult Not Indicated
== END 2022-08-27 17:32 | disposition home or self-care (01) ==
PROVIDERS: Emergency Provider Emergency Medicine; PCP Family Medicine
DX: E11.43 Type 2 diabetes mellitus with diabetic autonomic (poly)neuropathy (principal); K31.84 Gastroparesis; R10.9 Unspecified abdominal pain; Z79.4 Long term (current) use of insulin; R50.9 Fever, unspecified; Z79.01 Long term (current) use of anticoagulants; Z20.822 Contact with and (suspected) exposure to COVID-19
CPT/HCPCS: 74177; 80053; 81001; 81003; 83605; 83690; 84145; 85025; 87633; 93005; 99283; 99284; Q9967

== ENCOUNTER 2022-09-23 10:15 | Emergency (ER) | payer OTHER, SELFPAY ==
[2022-03-13 04:42] VITALS: BMI 37.3
[2022-09-23 10:40] VITALS: BP 186/115; PULSE 88; RESP 91; TEMP 36.5; O2SAT 100; BMI 36.2
[2022-09-23 11:02] LABS: Add Manual Diff / Slide Review NO; Basophils Absolute Auto 0 /uL (0-100); Basophils Percent Auto 0.2 % (0-2); Eosinophils Absolute Auto 300 /uL (0-450); Eosinophils Percent Auto 4.5 % (2-4); Hematocrit 32.6 % (41-53); Hemoglobin 11.2 g/dL (13.5-17.5); Lymphocytes Absolute Auto 1400 /uL (1100-4500); Mean Corpuscular HGB Conc 34.5 % (30-36); Mean Corpuscular Hemoglobin 27.9 PG (26-34); Mean Corpuscular Volume 80.9 fL (80-100); Monocytes Absolute Auto 700 /uL (0-900); Monocytes Percent Auto 9.1 % (3-14); Neutrophils Absolute Auto 5200 /uL (1500-7000); Neutrophils Percent Auto 68.2 % (50-75); Platelet Count 368 X10^3/uL (150-400); Red Blood Cell Count 4.02 X10^6/uL (4.5-5.9); Red Cell Distribution Width 13.6 % (11.6-14.8); White Blood Cell Count 7.6 X10^3/uL (4.5-11.0)
[2022-09-23 11:22] LABS: Alanine Aminotransferase 30 IU/L (<50); Albumin 3.5 g/dL (3.5-5.0); Albumin Globulin Ratio 0.9 (1.0-2.8); Alkaline Phosphatase 61 U/L (38-126); Aspartate Aminotransferase 33 IU/L (17-59); BUN Creatinine Ratio 26.9 (6-22); Bilirubin Total 0.5 mg/dL (0.2-1.3); Blood Urea Nitrogen 39 mg/dL (9-20); Calcium 8.8 mg/dL (8.4-10.2); Carbon Dioxide 27 mmol/L (22-32); Chloride 101 mmol/L (98-107); Estimated Glomerular Filt Rate 58 mL/min (>60); Glucose 163 mg/dL (70-100); HEMOLYSIS < 15 (0-50); Lipase 87 U/L (23-300); Potassium 3.5 mmol/L (3.4-5.1); Sodium 136 mmol/L (137-145); Total Protein 7.5 g/dL (6.3-8.2)
[2022-09-23] MEDS: METOCLOPRAMIDE 10 MG/2 ML INJ IV (11:23)
[2022-09-23] MEDS: SODIUM CHLORIDE 0.9% 1,000 ML 1000 ML IV ×2 (11:23→13:05)
--- NOTE | 2022-09-23 11:46 | ED.NAVMDI ---
HPI - Nausea/Vomiting/Diarrhea <Earlene Fernandes PA-C - Last Filed: 09/23/22 15:54> General Chief complaint: Nausea/Vomiting/Diarrhea Stated complaint: Fatigue/Dizziness/Nausea Time Seen by Provider: 09/23/22 11:36 Source: patient Mode of arrival: Ambulatory History of Present Illness HPI Narrative: Patient is a 52-year-old male with a past medical history of hypertension diabetes who presents with generalized fatigue, lightheadedness, nausea. He reports a recent hospitalization at [facility], discharge 2 weeks ago, for similar symptoms. He presents today after waking up feeling very lightheaded, and like he was going to fall over. Reports his blood sugars at home are 150-180. He is not vomited today but feels nauseous. He has chronic wounds on his bilateral feet, right for several weeks, left 4 months. He is receiving weekly wound care at [facility]. He denies headache, visual changes, factors that exacerbate his symptoms, abdominal pain, diarrhea or constipation. Related Data Home Medications Medication Instructions Recorded Confirmed amlodipine 10 mg tablet 10 mg PO DAILY 03/14/18 09/23/22 carvedilol 25 mg tablet 25 mg PO 1300 03/14/18 09/23/22 lisinopril 40 mg tablet 40 mg PO QAM 03/14/18 09/23/22 metformin 500 mg tablet 750 mg PO BID 03/14/18 09/23/22 insulin glargine U-300 conc 300 12 unit SUBCUT BID 03/13/22 09/23/22 unit/mL (1.5 mL) subcutaneous pen (Toujeo SoloStar U-300 Insulin) insulin lispro 100 unit/mL 12 - 15 unit SUBCUT QID 09/23/22 09/23/22 subcutaneous pen (Humalog KwikPen (U-100) Insulin) Previous Rx's Medication Instructions Recorded metoclopramide HCl 10 mg tablet 10 mg PO QACHS #120 tabs 06/15/22 ondansetron 4 mg disintegrating 4 mg PO Q6H PRN nausea and 08/22/22 tablet vomiting #14 tabs Allergies Allergy/AdvReac Type Severity Reaction Status Date / Time No Known Drug Allergies Allergy Verified 09/23/22 10:44 Review of Systems <Earlene Fernandes PA-C - Last Filed: 09/23/22 15:54> Review of Systems ROS Unobtainable: All systems reviewed & are unremarkable except as noted in HPI and below Patient History <Earlene Fernandes PA-C - Last Filed: 09/23/22 15:54> Medical History Congestive heart failure COVID Diabetes mellitus Hypertension Ulcer of left lower leg Ulcer of right leg Surgical History History of foot surgery Family History Father Myocardial infarction Mother Diabetes mellitus Brother Diabetes mellitus Social History household members: spouse and children Smoking Status: Former smoker alcohol intake: never Smoking Status: Former smoker tobacco type: cigarettes alcohol intake frequency: other Substance Use Type: marijuana Exam <Earlene Fernandes PA-C - Last Filed: 09/23/22 15:54> Narrative Exam Narrative: GENERAL: 52 year old patient appears stated age. Well-developed patient, in no distress. NEURO: AOx3. Cranial nerves 2-7 intact, no focal weakness, negative pronator drift. HEAD: Atraumatic. Normocephalic. EYES: Pupils equal round and reactive. Extraocular motions intact. No scleral icterus. No injection or drainage. CARDIOVASCULAR: Regular rate and rhythm without murmurs, gallops, or rubs. RESPIRATORY: Clear to auscultation. Breath sounds equal bilaterally. No wheezes, rales, or rhonchi. GASTROINTESTINAL: Abdomen soft, non-tender, nondistended. SKIN: No rash or erythema of visible areas. Chronic ulcer at base of right 5th metatarsal, no evidence current infection. Initial Vital Signs Initial Vital Signs: Vital Signs Temperature 97.7 F 09/23/22 10:40 Pulse Rate 88 09/23/22 10:40 Respiratory Rate 91 H 09/23/22 10:40 Blood Pressure 186/115 H 09/23/22 10:40 Pulse Oximetry 100 09/23/22 10:40 Oxygen Delivery Method Room Air 09/23/22 10:40 <Violet Salcedo DO - Last Filed: 09/24/22 07:17> Initial Vital Signs Initial Vital Signs: Vital Signs Temperature 97.7 F 09/23/22 10:40 Pulse Rate 88 09/23/22 10:40 Respiratory Rate 91 H 09/23/22 10:40 Blood Pressure 186/115 H 09/23/22 10:40 Pulse Oximetry 100 09/23/22 10:40 Oxygen Delivery Method Room Air 09/23/22 10:40 Course <Earlene Fernandes PA-C - Last Filed: 09/23/22 15:54> Orders Ordered: Discontinued Medications Amlodipine Besylate (Amlodipine 5 Mg Tablet) 10 mg PO NOW ONE Stop: 09/23/22 13:59 Last Admin: 09/23/22 14:14 Dose: 10 mg Documented By: MARISSA Carvedilol (Carvedilol 12.5 Mg Tablet) 25 mg PO NOW ONE Stop: 09/23/22 13:59 Last Admin: 09/23/22 14:14 Dose: 25 mg Documented By: MARISSA Sodium Chloride (Normal Saline 0.9%) 1,000 mls @ 1,000 mls/hr IV BOLUS ONE Stop: 09/23/22 11:57 Last Infusion: 09/23/22 12:12 Dose: 0 mls/hr Documented By: Admin: 09/23/22 11:23 Dose: 1,000 mls/hr Documented By: MARISSA Sodium Chloride (Normal Saline 0.9%) 1,000 mls @ 1,000 mls/hr IV BOLUS ONE Stop: 09/23/22 13:55 Last Infusion: 09/23/22 13:55 Dose: 0 mls/hr Documented By: Admin: 09/23/22 13:05 Dose: 1,000 mls/hr Documented By: LETITIA Meclizine HCl (Meclizine Hcl 12.5 Mg Tablet) 25 mg PO NOW ONE Stop: 09/23/22 12:56 Last Admin: 09/23/22 13:05 Dose: 25 mg Documented By: LETITIA Metoclopramide HCl (Metoclopramide 10 Mg/2 Ml Inj) 10 mg IV NOW ONE Stop: 09/23/22 10:59 Last Admin: 09/23/22 11:23 Dose: 10 mg Documented By: MARISSA Ondansetron HCl (Ondansetron 4 Mg Odt) 4 mg PO NOW PRN PRN Reason: Nausea And Vomiting Ondansetron HCl (Ondansetron 4 Mg/2 Ml Inj) 4 mg IV NOW PRN PRN Reason: Nausea And Vomiting Vital Signs Vital signs: Vital Signs - 8 hr 09/23/22 10:40 09/23/22 13:54 09/23/22 14:14 Temperature 97.7 F Pulse Rate 88 72 72 Respiratory Rate 91 H 16 Blood Pressure 186/115 H 192/100 H 190/100 H Pulse Oximetry 100 99 Oxygen Delivery Method Room Air Room Air <Violet Salcedo DO - Last Filed: 09/24/22 07:17> Orders Ordered: Discontinued Medications Amlodipine Besylate (Amlodipine 5 Mg Tablet) 10 mg PO NOW ONE Stop: 09/23/22 13:59 Last Admin: 09/23/22 14:14 Dose: 10 mg Documented By: MARISSA Carvedilol (Carvedilol 12.5 Mg Tablet) 25 mg PO NOW ONE Stop: 09/23/22 13:59 Last Admin: 09/23/22 14:14 Dose: 25 mg Documented By: MARISSA Sodium Chloride (Normal Saline 0.9%) 1,000 mls @ 1,000 mls/hr IV BOLUS ONE Stop: 09/23/22 11:57 Last Infusion: 09/23/22 12:12 Dose: 0 mls/hr Documented By: Admin: 09/23/22 11:23 Dose: 1,000 mls/hr Documented By: MARISSA Sodium Chloride (Normal Saline 0.9%) 1,000 mls @ 1,000 mls/hr IV BOLUS ONE Stop: 09/23/22 13:55 Last Infusion: 09/23/22 13:55 Dose: 0 mls/hr Documented By: Admin: 09/23/22 13:05 Dose: 1,000 mls/hr Documented By: LETITIA Meclizine HCl (Meclizine Hcl 12.5 Mg Tablet) 25 mg PO NOW ONE Stop: 09/23/22 12:56 Last Admin: 09/23/22 13:05 Dose: 25 mg Documented By: LETITIA Metoclopramide HCl (Metoclopramide 10 Mg/2 Ml Inj) 10 mg IV NOW ONE Stop: 09/23/22 10:59 Last Admin: 09/23/22 11:23 Dose: 10 mg Documented By: MARISSA Ondansetron HCl (Ondansetron 4 Mg Odt) 4 mg PO NOW PRN PRN Reason: Nausea And Vomiting Ondansetron HCl (Ondansetron 4 Mg/2 Ml Inj) 4 mg IV NOW PRN PRN Reason: Nausea And Vomiting Vital Signs Vital signs: Vital Signs - 8 hr 09/23/22 10:40 09/23/22 13:54 09/23/22 14:14 Temperature 97.7 F Pulse Rate 88 72 72 Respiratory Rate 91 H 16 Blood Pressure 186/115 H 192/100 H 190/100 H Pulse Oximetry 100 99 Oxygen Delivery Method Room Air Room Air MDM - Nausea/Vomiting/Diarrhea <Earlene Fernandes PA-C - Last Filed: 09/23/22 15:54> Lab Data 09/23/22 10:55 09/23/22 10:55 Labs: Lab Results 09/23/22 09/23/22 09/23/22 Range/Units 10:55 10:55 14:42 WBC 7.6 (4.5-11.0) X10^3/uL RBC 4.02 L (4.5-5.9) X10^6/uL Hgb 11.2 L (13.5-17.5) g/dL Hct 32.6 L (41-53) % MCV 80.9 (80-100) fL MCH 27.9 (26-34) PG MCHC 34.5 (30-36) % RDW 13.6 (11.6-14.8) % Plt Count 368 (150-400) X10^3/uL Neut % (Auto) 68.2 (50-75) % Lymph % (Auto) 18.0 L (25-40) % [place] % (Auto) 9.1 (3-14) % Eos % (Auto) 4.5 H (2-4) % Baso % (Auto) 0.2 (0-2) % Neut # (Auto) 5200 (8609-9329) /uL Lymph # (Auto) 1400 (6486-8555) /uL [place] # (Auto) 700 (0-900) /uL Eos # (Auto) 300 (0-450) /uL Baso # (Auto) 0 (0-100) /uL Sodium 136 L (137-145) mmol/L Potassium 3.5 (3.4-5.1) mmol/L Chloride 101 (98-107) mmol/L Carbon Dioxide 27 (22-32) mmol/L BUN 39 H (9-20) mg/dL Creatinine 1.45 H (0.66-1.25) mg/dL Estimated GFR 58 L (>60) mL/min BUN/Creatinine Ratio 26.9 H (6-22) Glucose 163 H (70-100) mg/dL Calcium 8.8 (8.4-10.2) mg/dL Total Bilirubin 0.5 (0.2-1.3) mg/dL AST 33 (17-59) IU/L ALT 30 (<50) IU/L Alkaline Phosphatase 61 (38-126) U/L Total Protein 7.5 (6.3-8.2) g/dL Albumin 3.5 (3.5-5.0) g/dL Globulin 4.0 (1.7-4.1) g/dL Albumin/Globulin Ratio 0.9 L (1.0-2.8) Lipase 87 (23-300) U/L Urine RBC (0-5/HPF) Urine WBC (0-5/HPF) Ur Squamous Epith Cells (0-5/HPF) Urine Bacteria (None) Ur Culture Indicated? U Opiates 300ng/mL cut Negative (Negative) Ur Oxycodone Screen Negative (Negative) Urine Methadone Screen Negative (Negative) Ur Barbiturates Screen Negative (Negative) U Tricyclic Antidepress Negative (Negative) Ur Phencyclidine Scrn Negative (Negative) Ur Amphetamines Screen Negative (Negative) U Methamphetamines Scrn Negative (Negative) Ur MDMA Scrn (Ecstasy) Negative (Negative) U Benzodiazepines Scrn Negative (Negative) Urine Cocaine Screen Negative (Negative) U Marijuana (THC) Screen Positive H (Negative) 09/23/22 Range/Units 14:42 WBC (4.5-11.0) X10^3/uL RBC (4.5-5.9) X10^6/uL Hgb (13.5-17.5) g/dL Hct (41-53) % MCV (80-100) fL MCH (26-34) PG MCHC (30-36) % RDW (11.6-14.8) % Plt Count (150-400) X10^3/uL Neut % (Auto) (50-75) % Lymph % (Auto) (25-40) % [place] % (Auto) (3-14) % Eos % (Auto) (2-4) % Baso % (Auto) (0-2) % Neut # (Auto) (1586-5145) /uL Lymph # (Auto) (6567-5625) /uL [place] # (Auto) (0-900) /uL Eos # (Auto) (0-450) /uL Baso # (Auto) (0-100) /uL Sodium (137-145) mmol/L Potassium (3.4-5.1) mmol/L Chloride (98-107) mmol/L Carbon Dioxide (22-32) mmol/L BUN (9-20) mg/dL Creatinine (0.66-1.25) mg/dL Estimated GFR (>60) mL/min BUN/Creatinine Ratio (6-22) Glucose (70-100) mg/dL Calcium (8.4-10.2) mg/dL Total Bilirubin (0.2-1.3) mg/dL AST (17-59) IU/L ALT (<50) IU/L Alkaline Phosphatase (38-126) U/L Total Protein (6.3-8.2) g/dL Albumin (3.5-5.0) g/dL Globulin (1.7-4.1) g/dL Albumin/Globulin Ratio (1.0-2.8) Lipase (23-300) U/L Urine RBC >100/hpf H (0-5/HPF) Urine WBC 0-1/hpf (0-5/HPF) Ur Squamous Epith Cells 0-1 /hpf (0-5/HPF) Urine Bacteria Occasional (0-1) (None) Ur Culture Indicated? Cult not indicated U Opiates 300ng/mL cut (Negative) Ur Oxycodone Screen (Negative) Urine Methadone Screen (Negative) Ur Barbiturates Screen (Negative) U Tricyclic Antidepress (Negative) Ur Phencyclidine Scrn (Negative) Ur Amphetamines Screen (Negative) U Methamphetamines Scrn (Negative) Ur MDMA Scrn (Ecstasy) (Negative) U Benzodiazepines Scrn (Negative) Urine Cocaine Screen (Negative) U Marijuana (THC) Screen (Negative) Urine Dip Bedside Urine Glucose Negative Bedside Urine Bilirubin - Negative Bedside Urine Ketone - Negative Urine Specific [place] 1.010 Bedside Urine Occult Blood +++ Bedside Urine pH 6.0 Bedside Urine Protein ++ 100 Bedside Urine Urobilinogen - Negative Bedside Urine Nitrite - Negative Bedside Urine Leukocytes - Negative Esterase MDM Narrative Medical decision making narrative: Multiple etiologies for patient's symptoms considered including, but not limited to: stroke, MD, PE, electrolyte abnormalities, DKA, BPPV and infection. Labs with new elevation of creatinine and BUN. He reports possibly not drinking enough water over the last several days. He feels better after 2 L of normal saline, medical provide, and meclizine. He is able to void. His urine have RBCs, similar to past. He should follow up with his primary care provider for further evaluation of hematuria. His right lower extremity wound does not look infected and he should continue wound care [facility] as scheduled. Patient's symptoms improved over duration of stay with above-stated therapies. I suspect his symptoms were related to dehydration and chronic nausea and lightheadedness. Urine is positive for marijuana today, he has been seen in the past for nausea and vomiting related to marijuana use. Findings and discharge diagnosis discussed with patient/family followed by verbalization of understanding Return precautions discussed with patient/family whom verbalize understanding of diagnosis and plan <Violet Salcedo, DO - Last Filed: 09/24/22 07:17> Lab Data Labs: Lab Results 09/23/22 09/23/22 09/23/22 Range/Units 10:55 10:55 14:42 WBC 7.6 (4.5-11.0) X10^3/uL RBC 4.02 L (4.5-5.9) X10^6/uL Hgb 11.2 L (13.5-17.5) g/dL Hct 32.6 L (41-53) % MCV 80.9 (80-100) fL MCH 27.9 (26-34) PG MCHC 34.5 (30-36) % RDW 13.6 (11.6-14.8) % Plt Count 368 (150-400) X10^3/uL Neut % (Auto) 68.2 (50-75) % Lymph % (Auto) 18.0 L (25-40) % [place] % (Auto) 9.1 (3-14) % Eos % (Auto) 4.5 H (2-4) % Baso % (Auto) 0.2 (0-2) % Neut # (Auto) 5200 (6078-0032) /uL Lymph # (Auto) 1400 (4422-2912) /uL [place] # (Auto) 700 (0-900) /uL Eos # (Auto) 300 (0-450) /uL Baso # (Auto) 0 (0-100) /uL Sodium 136 L (137-145) mmol/L Potassium 3.5 (3.4-5.1) mmol/L Chloride 101 (98-107) mmol/L Carbon Dioxide 27 (22-32) mmol/L BUN 39 H (9-20) mg/dL Creatinine 1.45 H (0.66-1.25) mg/dL Estimated GFR 58 L (>60) mL/min BUN/Creatinine Ratio 26.9 H (6-22) Glucose 163 H (70-100) mg/dL Calcium 8.8 (8.4-10.2) mg/dL Total Bilirubin 0.5 (0.2-1.3) mg/dL AST 33 (17-59) IU/L ALT 30 (<50) IU/L Alkaline Phosphatase 61 (38-126) U/L Total Protein 7.5 (6.3-8.2) g/dL Albumin 3.5 (3.5-5.0) g/dL Globulin 4.0 (1.7-4.1) g/dL Albumin/Globulin Ratio 0.9 L (1.0-2.8) Lipase 87 (23-300) U/L Urine RBC (0-5/HPF) Urine WBC (0-5/HPF) Ur Squamous Epith Cells (0-5/HPF) Urine Bacteria (None) Ur Culture Indicated? U Opiates 300ng/mL cut Negative (Negative) Ur Oxycodone Screen Negative (Negative) Urine Methadone Screen Negative (Negative) Ur Barbiturates Screen Negative (Negative) U Tricyclic Antidepress Negative (Negative) Ur Phencyclidine Scrn Negative (Negative) Ur Amphetamines Screen Negative (Negative) U Methamphetamines Scrn Negative (Negative) Ur MDMA Scrn (Ecstasy) Negative (Negative) U Benzodiazepines Scrn Negative (Negative) Urine Cocaine Screen Negative (Negative) U Marijuana (THC) Screen Positive H (Negative) 08/19/23 Range/Units 14:42 WBC (4.5-11.0) X10^3/uL RBC (4.5-5.9) X10^6/uL Hgb (13.5-17.5) g/dL Hct (41-53) % MCV (80-100) fL MCH (26-34) PG MCHC (30-36) % RDW (11.6-14.8) % Plt Count (150-400) X10^3/uL Neut % (Auto) (50-75) % Lymph % (Auto) (25-40) % [place] % (Auto) (3-14) % Eos % (Auto) (2-4) % Baso % (Auto) (0-2) % Neut # (Auto) (4608-0519) /uL Lymph # (Auto) (0592-4940) /uL [place] # (Auto) (0-900) /uL Eos # (Auto) (0-450) /uL Baso # (Auto) (0-100) /uL Sodium (137-145) mmol/L Potassium (3.4-5.1) mmol/L Chloride (98-107) mmol/L Carbon Dioxide (22-32) mmol/L BUN (9-20) mg/dL Creatinine (0.66-1.25) mg/dL Estimated GFR (>60) mL/min BUN/Creatinine Ratio (6-22) Glucose (70-100) mg/dL Calcium (8.4-10.2) mg/dL Total Bilirubin (0.2-1.3) mg/dL AST (17-59) IU/L ALT (<50) IU/L Alkaline Phosphatase (38-126) U/L Total Protein (6.3-8.2) g/dL Albumin (3.5-5.0) g/dL Globulin (1.7-4.1) g/dL Albumin/Globulin Ratio (1.0-2.8) Lipase (23-300) U/L Urine RBC >100/hpf H (0-5/HPF) Urine WBC 0-1/hpf (0-5/HPF) Ur Squamous Epith Cells 0-1 /hpf (0-5/HPF) Urine Bacteria Occasional (0-1) (None) Ur Culture Indicated? Cult not indicated U Opiates 300ng/mL cut (Negative) Ur Oxycodone Screen (Negative) Urine Methadone Screen (Negative) Ur Barbiturates Screen (Negative) U Tricyclic Antidepress (Negative) Ur Phencyclidine Scrn (Negative) Ur Amphetamines Screen (Negative) U Methamphetamines Scrn (Negative) Ur MDMA Scrn (Ecstasy) (Negative) U Benzodiazepines Scrn (Negative) Urine Cocaine Screen (Negative) U Marijuana (THC) Screen (Negative) Urine Dip Bedside Urine Glucose Negative Bedside Urine Bilirubin - Negative Bedside Urine Ketone - Negative Urine Specific [place] 1.010 Bedside Urine Occult Blood +++ Bedside Urine pH 6.0 Bedside Urine Protein ++ 100 Bedside Urine Urobilinogen - Negative Bedside Urine Nitrite - Negative Bedside Urine Leukocytes - Negative Esterase ECG Data Interpretation: [place]-normal sinus rhythm rate 75 FL interval 172 QRS 118 QTC 4 some May [address] changes similar to previous EKGs Discharge Plan Departure Patient Disposition: Home Clinical Impression: Acute dehydration, Diabetic foot ulcer Instructions: DI for Dehydration -- Adult Activity Restrictions/Additional Instructions: *You have been diagnosed with dehydration. Overall, your labs look okay but it appears you were quite dehydrated. Your creatinine and BUN, which are kidney test, or abnormal today. You also have some blood in your urine today, which is similar to the past, but I would advise follow up with your primary care doctor. I would highly recommend that you follow-up with your primary care provider within the next week for recheck of your labs. Continue to drink at least 8 cups of water a day. Return to the ER if you are unable to keep water down or have other symptoms. *What to do: *Please continue to take your regular medications as directed. [ ] New medication prescriptions sent to your pharmacy: [ ] [ ] New medication written as a paper prescription [ x] No new medications given *Please follow up with your primary care provider in 2-3 days, call for an appointment. Let them know you were seen in the Emergency Department and that we ask that you be seen in follow up. We will electronically transmit a record of today's note if your PCP is in our system *If you do not have a primary care provider please contact the [facility] Resource line at [phone]. They will ask some questions about your medical history and help get you set up with a doctor in the community. *Return to Emergency Department if you should have any new, worsening or concerning symptoms, such as [fever greater than 101 F, shaking chills, worsening pain, persistent vomiting or other bothersome symptoms] Prescriptions: No Action metformin 500 mg Tablet 750 mg PO BID carvedilol 25 mg Tablet 25 mg PO 1300 amlodipine 10 mg Tablet 10 mg PO DAILY lisinopril 40 mg Tablet 40 mg PO QAM Toujeo SoloStar U-300 Insulin 300 unit/mL (1.5 mL) Insulin Pen 12 unit SUBCUT BID metoclopramide HCl 10 mg tablet 10 mg PO QACHS Qty: 120 0RF ondansetron 4 mg tablet,disintegrating 4 mg PO Q6H PRN (Reason: nausea and vomiting) Qty: 14 0RF insulin lispro [Humalog KwikPen Insulin] 100 unit/mL insulin pen 12 - 15 unit SUBCUT QID Patient Comments: [NO ORIGINAL SIG] Referrals: Toño Ovalles MD [Primary Care Provider] - Stand Alone Forms: Patient Portal/API <Violet Salcedo DO - Last Filed: 09/24/22 07:17> Cosign ED Attending Shonnaature Attestation: I was immediately available in the department for consultation. Documentation has been reviewed.
[2022-09-23] MEDS: MECLIZINE HCL 12.5 MG TABLET 25 MG PO (13:05)
[2022-09-23 13:54] VITALS: BP 192/100; PULSE 72; RESP 16; O2SAT 99
[2022-09-23 14:14] VITALS: BP 190/100; PULSE 72
[2022-09-23] MEDS: AMLODIPINE 5 MG TABLET 10 MG PO (14:14)
[2022-09-23] MEDS: carvediloL 12.5 MG TABLET 25 MG PO (14:14)
[2022-09-23 15:02] LABS: Ur Creatinine Normal (Normal); Ur Specific Gravity Normal (Normal); Urine pH Normal (Normal)
[2022-09-23 15:03] LABS: UR Morphine/Opiate cutoff 300 Negative (Negative); Urine Amphetamines Negative (Negative); Urine Barbiturates Negative (Negative); Urine Benzodiazepines Negative (Negative); Urine Cocaine Negative (Negative); Urine MDMA Negative (Negative); Urine Methadone Negative (Negative); Urine Methamphetamines Negative (Negative); Urine Oxycodone Negative (Negative); Urine Phencyclidine Negative (Negative); Urine Tetrahydrocannabinol Positive (Negative); Urine Tricyclic Antidepressant Negative (Negative)
[2022-09-23 15:09] LABS: Bacteria Urine Occasional (0-1); Culture Indicated Urine Cult Not Indicated; RBC Urine >100/HPF (0-5/HPF); Squamous Epithelial Cell Urine 0-1 /HPF (0-5/HPF); WBC Urine 0-1/HPF (0-5/HPF)
[2022-09-23 16:03] VITALS: BP 161/95; PULSE 72; RESP 16; O2SAT 99
== END 2022-09-23 16:19 | disposition home or self-care (01) ==
PROVIDERS: Emergency Medicine; Emergency Provider Physician Assistant; PCP Family Medicine
DX: E86.0 Dehydration (principal); E11.621 Type 2 diabetes mellitus with foot ulcer; R10.9 Unspecified abdominal pain; R11.2 Nausea with vomiting, unspecified; Z79.899 Other long term (current) drug therapy
CPT/HCPCS: 36415; 80053; 80305; 81003; 81015; 83690; 85025; 93005; 96361; 96374; 99284; J2405; J2765

== ENCOUNTER 2022-10-02 00:44 | Inpatient (IN) | payer OTHER, SELFPAY ==
[2022-03-13 04:42] VITALS: BMI 37.3
[2022-10-02] VITALS (57 sets, daily range): BP systolic 148–241; BP diastolic 88–132; PULSE 69–104; RESP 11–24; TEMP 36–36.5; O2SAT 94–100; BMI 36.2
[2022-10-02] MEDS: ONDANSETRON 4 MG ODT SL (01:04)
[2022-10-02] MEDS: SODIUM CHLORIDE 0.9% 1,000 ML 1000 ML IV (02:05)
[2022-10-02 02:19] LABS: Add Manual Diff / Slide Review NO; Basophils Absolute Auto 100 /uL (0-100); Basophils Percent Auto 0.9 % (0-2); Eosinophils Absolute Auto 100 /uL (0-450); Eosinophils Percent Auto 1.2 % (2-4); Hematocrit 35.7 % (41-53); Hemoglobin 12.1 g/dL (13.5-17.5); Lymphocytes Absolute Auto 1600 /uL (1100-4500); Lymphocytes Percent Auto 14.2 % (25-40); Mean Corpuscular Hemoglobin 27.3 PG (26-34); Mean Corpuscular Volume 80.1 fL (80-100); Monocytes Absolute Auto 600 /uL (0-900); Monocytes Percent Auto 5.5 % (3-14); Neutrophils Absolute Auto 8900 /uL (1500-7000); Neutrophils Percent Auto 78.2 % (50-75); Platelet Count 412 X10^3/uL (150-400); Red Blood Cell Count 4.45 X10^6/uL (4.5-5.9); Red Cell Distribution Width 14.3 % (11.6-14.8); White Blood Cell Count 11.4 X10^3/uL (4.5-11.0)
[2022-10-02 02:20] LABS: Lactate (Lactic Acid) 1.5 mmol/L (0.7-2.1)
[2022-10-02 02:22] LABS: Alanine Aminotransferase 19 IU/L (<50); Albumin Globulin Ratio 0.9 (1.0-2.8); Alkaline Phosphatase 60 U/L (38-126); Aspartate Aminotransferase 29 IU/L (17-59); BUN Creatinine Ratio 20.4 (6-22); Bilirubin Total 0.8 mg/dL (0.2-1.3); Blood Urea Nitrogen 52 mg/dL (9-20); Carbon Dioxide 28 mmol/L (22-32); Chloride 96 mmol/L (98-107); Estimated Glomerular Filt Rate 29 mL/min (>60); Globulin 4.4 g/dL (1.7-4.1); Glucose 151 mg/dL (70-100); HEMOLYSIS < 15 (0-50); Lipase 125 U/L (23-300); Potassium 3.5 mmol/L (3.4-5.1); Sodium 137 mmol/L (137-145); Total Protein 8.4 g/dL (6.3-8.2)
[2022-10-02 02:38] LABS: Procalcitonin 0.15 ng/mL (<0.5)
--- NOTE | 2022-10-02 03:20 | ED.NAVMDI ---
HPI - Nausea/Vomiting/Diarrhea General Chief complaint: Nausea/Vomiting/Diarrhea Stated complaint: FATIGUE, VOMITING 4 DAYS Time Seen by Provider: 10/02/22 01:36 Source: patient Mode of arrival: Ambulatory Limitations: no limitations History of Present Illness HPI Narrative: This is a 52-year-old male insulin-dependent diabetic with chronic wounds on his lower extremities, hypertension that is not well controlled diabetic gastroparesis. With complaint of fatigue and vomiting for the past 5 days. Patient states Sunday he started having issues keeping stuff down. He has had issues with gastroparesis from his diabetes in the past. He states no abdominal back or flank pain. No fevers or chills objectively but has felt sweaty and hot intermittently. Patient denies any chest pain or pressure, no shortness of breath. He denies any cold cough or congestion. States he has not had many bowel movements in the past for 5 days but has been passing gas regularly. He denies any distention. Patient states no dysuria, urgency or frequency. No decrease in urine output or hematuria. Patient states he was here on the 23 of September for somewhat similar symptoms and it got better but then sort of reoccurred. Patient states remote history of surgery on the bone in his left foot. No known drug allergies. No tobacco, alcohol or illicit currently. Primary care is Dr. Ovalles. Patient is following regularly with wound care for his lower extremities which he states have been well controlled. He does have Unna boots on currently. Patient states he is supposed to be seen this morning, Sunday morning at wound care. Related Data Home Medications Medication Instructions Recorded Confirmed amlodipine 10 mg tablet 10 mg PO DAILY 03/14/18 10/02/22 lisinopril 40 mg tablet 40 mg PO QAM 03/14/18 10/02/22 metformin 500 mg tablet 750 mg PO BID 03/14/18 10/02/22 insulin glargine U-300 conc 300 12 unit SUBCUT BID 03/13/22 10/02/22 unit/mL (1.5 mL) subcutaneous pen (Toujeo SoloStar U-300 Insulin) insulin lispro 100 unit/mL 12 - 15 unit SUBCUT TID 09/23/22 10/02/22 subcutaneous pen (Humalog KwikPen (U-100) Insulin) Previous Rx's Medication Instructions Recorded carvedilol 25 mg tablet 25 mg PO BIDWM #30 tabs 10/04/22 chlorthalidone 25 mg tablet 25 mg PO DAILY #30 tabs 10/04/22 Allergies Allergy/AdvReac Type Severity Reaction Status Date / Time No Known Drug Allergies Allergy Verified 09/23/22 10:44 Review of Systems Review of Systems ROS Unobtainable: All systems reviewed & are unremarkable except as noted in HPI and below Patient History Medical History (Updated 10/02/22 @ 06:34 by [place] Morris MD) Congestive heart failure COVID Diabetes mellitus Hypertension Ulcer of left lower leg Ulcer of right leg Surgical History History of foot surgery Family History Father Myocardial infarction Mother Diabetes mellitus Brother Diabetes mellitus Social History household members: children Smoking Status: Former smoker alcohol intake: never Smoking Status: Former smoker tobacco type: cigarettes alcohol intake frequency: other Substance Use Type: marijuana Exam Narrative Exam Narrative: GENERAL: Alert and oriented x three, male in mild distress. Patient was sleeping initially awakens easily. HEENT: Head normocephalic, atraumatic, EOMI, pupils reactive, face symmetric, moist mucous membranes NECK: Supple, full range of motion CARDIOVASCULAR: Regular rate and rhythm without murmurs, rubs or gallops. RESPIRATORY: Breath sounds equal bilaterally, no wheezes rales or rhonchi. ABDOMEN: Soft, nontender. Nondistended. Normoactive bowel sounds all 4 quadrants. No guarding or rebound, rigidity, no mass : No CVA tenderness EXTREMITIES: Normal range of motion, no clubbing or edema appreciated. 2+ radial pulses bilaterally. Patient has Unna boots in place bilaterally. NEUROLOGICAL: Cranial nerves II through XII grossly intact. Moving all extremities SKIN: Warm, dry, no petechiae, no rashes or lesions appreciated. Initial Vital Signs Initial Vital Signs: Vital Signs Temperature 96.8 F L 10/02/22 00:53 Pulse Rate 104 H 10/02/22 00:53 Respiratory Rate 12 10/02/22 00:53 Blood Pressure 186/117 H 10/02/22 00:53 Pulse Oximetry 99 10/02/22 00:53 Oxygen Delivery Method Room Air 10/02/22 00:53 Course Orders Ordered: Discontinued Medications Acetaminophen (Acetaminophen 325 Mg Tablet) 650 mg PO Q6H PRN PRN Reason: Fever/Mild Pain (1-3) Albuterol (Albuterol 2.5 Mg/3 Ml Neb (Adult)) 2.5 mg INH [id number] PRN PRN Reason: Dyspnea Amlodipine Besylate (Amlodipine 5 Mg Tablet) 10 mg PO NOW ONE Stop: 10/02/22 04:30 Last Admin: 10/02/22 04:39 Dose: 10 mg Documented By: SARAH Amlodipine Besylate (Amlodipine 5 Mg Tablet) 10 mg PO DAILY [facility] Last Admin: 10/04/22 08:09 Dose: 10 mg Documented By: Admin: 10/03/22 08:07 Dose: 10 mg Documented By: Admin: 10/02/22 09:46 Dose: Not Given Documented By: BRE Carvedilol (Carvedilol 12.5 Mg Tablet) 25 mg PO NOW ONE Stop: 10/02/22 04:30 Last Admin: 10/02/22 04:39 Dose: 25 mg Documented By: SARAH Carvedilol (Carvedilol 12.5 Mg Tablet) 25 mg PO 1300 [facility] Carvedilol (Carvedilol 12.5 Mg Tablet) 25 mg PO BID [facility] Last Admin: 10/02/22 10:09 Dose: Not Given Documented By: BRE Carvedilol (Carvedilol 12.5 Mg Tablet) 25 mg PO BIDWM [facility] Last Admin: 10/04/22 08:08 Dose: 25 mg Documented By: Admin: 10/03/22 17:54 Dose: 25 mg Documented By: Admin: 10/03/22 08:08 Dose: 25 mg Documented By: Admin: 10/02/22 17:01 Dose: 25 mg Documented By: JORGE Chlorthalidone (Chlorthalidone 25 Mg Tablet) 25 mg PO DAILY [facility] Last Admin: 10/04/22 08:09 Dose: 25 mg Documented By: Admin: 10/03/22 09:09 Dose: Not Given Documented By: Admin: 10/03/22 09:09 Dose: 25 mg Documented By: LETITIA Hydralazine HCl (Hydralazine 25 Mg Tablet) 25 mg PO TID [facility] Last Admin: 10/02/22 20:56 Dose: 25 mg Documented By: SMS Hydralazine HCl (Hydralazine 25 Mg Tablet) 25 mg PO NOW ONE Stop: 10/02/22 14:16 Last Admin: 10/02/22 14:19 Dose: 25 mg Documented By: CLP Sodium Chloride (Normal Saline 0.9%) 1,000 mls @ 1,000 mls/hr IV BOLUS ONE Stop: 10/02/22 02:35 Last Infusion: 10/02/22 03:05 Dose: 0 mls/hr Documented By: Admin: 10/02/22 02:05 Dose: 1,000 mls/hr Documented By: SB Sodium Chloride (Normal Saline 0.9%) 1,000 mls @ 75 mls/hr IV CONT SASKIA Last Infusion: 10/04/22 08:21 Dose: 0 mls/hr Documented By: Admin: 10/03/22 17:43 Dose: 75 mls/hr Documented By: Infusion: 10/03/22 17:28 Dose: 75 mls/hr Documented By: Admin: 10/03/22 04:08 Dose: 75 mls/hr Documented By: Infusion: 10/03/22 03:43 Dose: 75 mls/hr Documented By: Infusion: 10/02/22 14:23 Dose: 75 mls/hr Documented By: Admin: 10/02/22 14:23 Dose: 150 mls/hr Documented By: Infusion: 10/02/22 10:31 Dose: 75 mls/hr Documented By: Infusion: 10/02/22 07:58 Dose: 150 mls/hr Documented By: Admin: 10/02/22 03:51 Dose: 150 mls/hr Documented By: VANESA Nicardipine HCl 25 mg/ Sodium (Chloride) 250 mls @ 50 mls/hr IV TITRATE SASKIA; Protocol Last Admin: 10/02/22 09:44 Dose: Not Given Documented By: CLP Lactated Ringer's (Lactated Ringers) 1,000 mls @ 150 mls/hr IV CONT SASKIA Last Infusion: 10/02/22 14:23 Dose: 0 mls/hr Documented By: Admin: 10/02/22 07:58 Dose: 150 mls/hr Documented By: ST Magnesium Sulfate (Magnesium Sulfate) 2 gm in 50 mls @ 25 mls/hr IV NOW ONE Stop: 10/02/22 09:38 Last Admin: 10/02/22 09:59 Dose: 25 mls/hr Documented By: BRE Co-signed By: JORGE Insulin Glargine (Insulin Glargine 100 Unit/Ml 3ml Pen) 12 unit SUBCUT BID [facility] Last Admin: 10/04/22 08:22 Dose: 12 unit Documented By: SUAD Co-signed By: NGUYEN Admin: 10/03/22 20:54 Dose: 10 unit Documented By: ZOLTAN Co-signed By: CM Admin: 10/03/22 08:25 Dose: 12 unit Documented By: LETITIA Co-signed By: NGUYEN Admin: 10/02/22 20:57 Dose: 10 unit Documented By: ZOLTAN Co-signed By: CM Admin: 10/02/22 10:05 Dose: 12 unit Documented By: CLP Co-signed By: TURNER Insulin Human Lispro (Insulin Lispro 100 Unit/Ml 3ml Vial) 12 unit SUBCUT ACHS [facility] Last Admin: 10/04/22 08:23 Dose: Not Given Documented By: Admin: 10/03/22 20:55 Dose: 10 unit Documented By: ZOLTAN Co-signed By: CM Admin: 10/03/22 17:49 Dose: Not Given Documented By: Admin: 10/03/22 12:24 Dose: 12 unit Documented By: LETITIA Co-signed By: NGUYEN Admin: 10/03/22 08:26 Dose: 12 unit Documented By: LETITIA Co-signed By: NGUYEN Admin: 10/02/22 20:58 Dose: 10 unit Documented By: ZOLTAN Co-signed By: CM Admin: 10/02/22 16:59 Dose: Not Given Documented By: Admin: 10/02/22 13:05 Dose: 12 unit Documented By: CLP Co-signed By: TURNER Admin: 10/02/22 07:55 Dose: 12 unit Documented By: Co-signed By: ARELY Metoclopramide HCl (Metoclopramide Hcl 5 Mg Tablet) [address] [facility] Metoclopramide HCl (Metoclopramide Hcl 5 Mg Tablet) 10 mg PO Q6H PRN PRN Reason: Nausea And Vomiting Naloxone HCl (Naloxone 0.4 Mg/Ml Vial) 0.2 mg IV Q2MIN PRN PRN Reason: Opiate Reversal Ondansetron HCl (Ondansetron 4 Mg Odt) 4 mg SL NOW ONE Stop: 10/02/22 01:02 Last Admin: 10/02/22 01:04 Dose: 4 mg Documented By: SARAH Ondansetron HCl (Ondansetron 4 Mg Odt) 4 mg PO Q6H PRN PRN Reason: nausea and vomiting Ondansetron HCl (Ondansetron 4 Mg/2 Ml Inj) 4 mg IV Q8HR PRN PRN Reason: Nausea And Vomiting Oxycodone HCl (Oxycodone Ir 5 Mg Tablet) 5 mg PO Q3H PRN PRN Reason: Pain, Moderate (4-6) Potassium Chloride (Potassium Chloride 20 Meq Tab) 40 meq PO NOW ONE Stop: 10/02/22 07:40 Last Admin: 10/02/22 07:57 Dose: 40 meq Documented By: Potassium Chloride (Potassium Chloride 20 Meq Tab) 20 meq PO DAILYCC [facility] Last Admin: 10/04/22 08:08 Dose: 20 meq Documented By: Admin: 10/03/22 08:08 Dose: 20 meq Documented By: LETITIA Vital Signs Vital signs: Vital Signs - 8 hr 10/02/22 00:53 10/02/22 01:40 10/02/22 01:45 Temperature 96.8 F L Pulse Rate 104 H 95 H Respiratory Rate 12 Blood Pressure 186/117 H 203/125 H Pulse Oximetry 99 97 Oxygen Delivery Method Room Air 10/02/22 01:45 10/02/22 02:00 10/02/22 02:00 Temperature Pulse Rate 92 H 90 Respiratory Rate 18 18 Blood Pressure 179/110 H Pulse Oximetry 97 97 Oxygen Delivery Method Room Air 10/02/22 02:30 10/02/22 02:40 10/02/22 03:00 Temperature Pulse Rate 81 79 76 Respiratory Rate 13 14 14 Blood Pressure Pulse Oximetry 97 97 96 Oxygen Delivery Method 10/02/22 04:39 10/02/22 03:30 10/02/22 03:30 Temperature Pulse Rate 75 86 Respiratory Rate 17 Blood Pressure 236/132 H 229/119 H Pulse Oximetry 98 Oxygen Delivery Method 10/02/22 04:00 10/02/22 04:00 10/02/22 04:27 Temperature Pulse Rate 79 80 Respiratory Rate 13 14 Blood Pressure 224/119 H Pulse Oximetry 97 98 Oxygen Delivery Method 10/02/22 04:27 10/02/22 04:30 10/02/22 04:30 Temperature Pulse Rate 79 Respiratory Rate 12 Blood Pressure 241/122 H 236/132 H Pulse Oximetry 97 Oxygen Delivery Method 10/02/22 05:00 10/02/22 05:00 10/02/22 05:30 Temperature Pulse Rate 72 95 H Respiratory Rate 13 11 L Blood Pressure 203/111 H Pulse Oximetry 97 Oxygen Delivery Method 10/02/22 05:31 10/02/22 06:00 10/02/22 06:00 Temperature Pulse Rate 96 H 85 Respiratory Rate 21 12 Blood Pressure 237/129 H Pulse Oximetry 97 Oxygen Delivery Method 10/02/22 06:30 10/02/22 06:30 Temperature Pulse Rate 74 Respiratory Rate 12 Blood Pressure 202/110 H Pulse Oximetry 97 Oxygen Delivery Method MDM - Nausea/Vomiting/Diarrhea Lab Data 10/04/22 03:39 10/04/22 03:39 Labs: Lab Results 10/02/22 10/02/22 10/02/22 Range/Units 01:50 01:50 01:50 WBC 11.4 H (4.5-11.0) X10^3/uL RBC 4.45 L (4.5-5.9) X10^6/uL Hgb 12.1 L (13.5-17.5) g/dL Hct 35.7 L (41-53) % MCV 80.1 (80-100) fL MCH 27.3 (26-34) PG MCHC 34.0 (30-36) % RDW 14.3 (11.6-14.8) % Plt Count 412 H (150-400) X10^3/uL Neut % (Auto) 78.2 H (50-75) % Lymph % (Auto) 14.2 L (25-40) % [place] % (Auto) 5.5 (3-14) % Eos % (Auto) 1.2 L (2-4) % Baso % (Auto) 0.9 (0-2) % Neut # (Auto) 8900 H (4975-5040) /uL Lymph # (Auto) 1600 (3671-4126) /uL [place] # (Auto) 600 (0-900) /uL Eos # (Auto) 100 (0-450) /uL Baso # (Auto) 100 (0-100) /uL Sodium 137 (137-145) mmol/L Potassium 3.5 (3.4-5.1) mmol/L Chloride 96 L (98-107) mmol/L Carbon Dioxide 28 (22-32) mmol/L BUN 52 H (9-20) mg/dL Creatinine 2.55 H (0.66-1.25) mg/dL Estimated GFR 29 L (>60) mL/min BUN/Creatinine Ratio 20.4 (6-22) Glucose 151 H (70-100) mg/dL Lactate 1.5 (0.7-2.1) mmol/L Calcium 9.0 (8.4-10.2) mg/dL Total Bilirubin 0.8 (0.2-1.3) mg/dL AST 29 (17-59) IU/L ALT 19 (<50) IU/L Alkaline Phosphatase 60 (38-126) U/L Total Creatine Kinase (55-170) U/L Troponin I (0.01-0.034) ng/mL NT-Pro-B Natriuret Pep (<125) pg/mL Total Protein 8.4 H (6.3-8.2) g/dL Albumin 4.0 (3.5-5.0) g/dL Globulin 4.4 H (1.7-4.1) g/dL Albumin/Globulin Ratio 0.9 L (1.0-2.8) Triglycerides (35-150) mg/dL Cholesterol (140-199) mg/dL LDL Cholesterol, Calc (<100) mg/dL HDL Cholesterol (40-60) mg/dL Lipase 125 (23-300) U/L Procalcitonin (<0.5) ng/mL Ur Bilirubin Confirm (Negative) Urine RBC (0-5/HPF) Urine WBC (0-5/HPF) Ur Squamous Epith Cells (0-5/HPF) Urine Bacteria (None) Granular Casts (None) Ur Culture Indicated? Ur Random Sodium (30-90) mmol/L Urine Creatinine mg/dL 10/02/22 10/02/22 10/02/22 Range/Units 01:50 01:50 05:36 WBC (4.5-11.0) X10^3/uL RBC (4.5-5.9) X10^6/uL Hgb (13.5-17.5) g/dL Hct (41-53) % MCV (80-100) fL MCH (26-34) PG MCHC (30-36) % RDW (11.6-14.8) % Plt Count (150-400) X10^3/uL Neut % (Auto) (50-75) % Lymph % (Auto) (25-40) % [place] % (Auto) (3-14) % Eos % (Auto) (2-4) % Baso % (Auto) (0-2) % Neut # (Auto) (9423-6450) /uL Lymph # (Auto) (3666-2581) /uL [place] # (Auto) (0-900) /uL Eos # (Auto) (0-450) /uL Baso # (Auto) (0-100) /uL Sodium (137-145) mmol/L Potassium (3.4-5.1) mmol/L Chloride (98-107) mmol/L Carbon Dioxide (22-32) mmol/L BUN (9-20) mg/dL Creatinine (0.66-1.25) mg/dL Estimated GFR (>60) mL/min BUN/Creatinine Ratio (6-22) Glucose (70-100) mg/dL Lactate (0.7-2.1) mmol/L Calcium (8.4-10.2) mg/dL Total Bilirubin (0.2-1.3) mg/dL AST (17-59) IU/L ALT (<50) IU/L Alkaline Phosphatase (38-126) U/L Total Creatine Kinase 39 L (55-170) U/L Troponin I 0.023 (0.01-0.034) ng/mL NT-Pro-B Natriuret Pep 1940 H (<125) pg/mL Total Protein (6.3-8.2) g/dL Albumin (3.5-5.0) g/dL Globulin (1.7-4.1) g/dL Albumin/Globulin Ratio (1.0-2.8) Triglycerides (35-150) mg/dL Cholesterol (140-199) mg/dL LDL Cholesterol, Calc (<100) mg/dL HDL Cholesterol (40-60) mg/dL Lipase (23-300) U/L Procalcitonin 0.15 (<0.5) ng/mL Ur Bilirubin Confirm (Negative) Urine RBC (0-5/HPF) Urine WBC (0-5/HPF) Ur Squamous Epith Cells (0-5/HPF) Urine Bacteria (None) Granular Casts (None) Ur Culture Indicated? Ur Random Sodium 37 (30-90) mmol/L Urine Creatinine 164.8 mg/dL 10/02/22 10/02/22 10/02/22 Range/Units 05:36 06:58 06:58 WBC (4.5-11.0) X10^3/uL RBC (4.5-5.9) X10^6/uL Hgb (13.5-17.5) g/dL Hct (41-53) % MCV (80-100) fL MCH (26-34) PG MCHC (30-36) % RDW (11.6-14.8) % Plt Count (150-400) X10^3/uL Neut % (Auto) (50-75) % Lymph % (Auto) (25-40) % [place] % (Auto) (3-14) % Eos % (Auto) (2-4) % Baso % (Auto) (0-2) % Neut # (Auto) (2571-5320) /uL Lymph # (Auto) (5312-2039) /uL [place] # (Auto) (0-900) /uL Eos # (Auto) (0-450) /uL Baso # (Auto) (0-100) /uL Sodium 137 (137-145) mmol/L Potassium 3.3 L (3.4-5.1) mmol/L Chloride 100 (98-107) mmol/L Carbon Dioxide 29 (22-32) mmol/L BUN 48 H (9-20) mg/dL Creatinine 2.24 H (0.66-1.25) mg/dL Estimated GFR 34 L (>60) mL/min BUN/Creatinine Ratio 21.4 (6-22) Glucose 123 H (70-100) mg/dL Lactate (0.7-2.1) mmol/L Calcium 8.4 (8.4-10.2) mg/dL Total Bilirubin (0.2-1.3) mg/dL AST (17-59) IU/L ALT (<50) IU/L Alkaline Phosphatase (38-126) U/L Total Creatine Kinase (55-170) U/L Troponin I (0.01-0.034) ng/mL NT-Pro-B Natriuret Pep (<125) pg/mL Total Protein (6.3-8.2) g/dL Albumin (3.5-5.0) g/dL Globulin (1.7-4.1) g/dL Albumin/Globulin Ratio (1.0-2.8) Triglycerides 130 (35-150) mg/dL Cholesterol 191 (140-199) mg/dL LDL Cholesterol, Calc 138 H (<100) mg/dL HDL Cholesterol 27 L (40-60) mg/dL Lipase (23-300) U/L Procalcitonin (<0.5) ng/mL Ur Bilirubin Confirm Negative (Negative) Urine RBC 30-100/hpf H (0-5/HPF) Urine WBC 1-5/hpf (0-5/HPF) Ur Squamous Epith Cells None seen (0-5/HPF) Urine Bacteria None seen (None) Granular Casts 1-5/lpf (None) Ur Culture Indicated? Cult not indicated Ur Random Sodium (30-90) mmol/L Urine Creatinine mg/dL Point of Care Testing Glucose POC 116 Urine Dip Bedside Urine Glucose Negative Bedside Urine Bilirubin - Negative Bedside Urine Ketone - Negative Urine Specific [place] 1.025 Bedside Urine Occult Blood +++ Bedside Urine pH 6.0 Bedside Urine Protein +++ 300 Bedside Urine Urobilinogen - Negative Bedside Urine Nitrite - Negative Bedside Urine Leukocytes - Negative Esterase Imaging Data CT scan - abdomen/pelvis: Radiologist's Impression: Lung bases are clear. No pericardial or pleural effusion. Liver, gallbladder, pancreas, spleen and adrenal glands are normal. The kidneys are unremarkable. No mesenteric or retroperitoneal lymphadenopathy. No abdominal ascites periumbilical hernia containing fat. No free fluid within the pelvis or pelvic adenopathy. The prostate gland and seminal vesicles are normal. The bladder is unremarkable. The colon and small bowel are normal. The normal-appearing appendix. There is no suspicious lytic or sclerotic osseous lesions identified. Multilevel spondylitic changes of the thoracolumbar spine. ECG Data Attestation: I personally reviewed and interpreted this ECG as follows: Prior ECG tracings: available for review Interpretation: Sinus rhythm rate of 91 MS 162 QRS of 104 and QTC 496. No acute ST elevation appreciated. Patient appears to have some depression in lateral leads V4 5. EKG 2. Patient had sinus rhythm rate of 72 MS 172 QRS of 118 QTC 514. No acute changes from prior. Patient was noted on tele to have 13 beat of tachycardia, is appreciated in lead 2 but does not appear to be V-tach in V1. [facility] Narrative Medical decision making narrative: 52-year-old male who presents with complaint of nausea vomiting for the past 5 days. Some subjective fevers. No chest pain, no shortness of breath, patient denies any new changes to urination states has not had a bowel movement for 5 days but passing stool regularly. Patient has had issues with gastroparesis secondary to his diabetes, he does not have well-controlled hypertension. He is hypertensive here this evening and states he is taken some but not all of his medications. He is a white count of 11.4 hemoglobin is 12 with a platelets 412. Coags are negative renal function shows a creatinine 2.55 he was 1.4510 days ago on the 23 of September and has a BUN of 52 and had a BUN of 34 at that time. Patient's electrolytes are appropriately 1374 sodium 3.5 for his potassium, LFTs are negative procalcitonin lactate are both appropriate. Patient had some ST depression which appears new compared to his prior EKG 10 days ago he does not have any chest pain or shortness of breath but troponin and BNP were included. These show Patient was seen here [address] abdomen pelvis for his abdominal discomfort with contrast at that time. Has not been having much fluid intake likely has acute kidney injury secondary to dehydration. CT KUB today shows no acute changes. Urine sample shows, protein and hematuria. Patient's blood pressure continued to trend upwards. Was given his home doses of amlodipine and carvedilol. Lisinopril was held secondary to his acute kidney injury. Spoke with Dr. Morris hospitalist he accepts for admission but does ask if we can consult with Nephrology to make sure they would not wish for transfer. Agrees with plan for fluids. Spoke with Dr. Antony Zarco, nephrology [facility]: Recommends to continue to hydrate aggressively to get patient 2 L positive can continue with 150 mL/hour of LR, if creatinine tomorrow is increased after 24 hours of hydration recommend transfer over to [facility]. For blood pressure control would have a goal of 180 or less. If necessary I would recommend nicardipine drip if patient's vomiting and not able to keep down p.o. medications. Spoke with Dr. Morris, updated on recommendations from nephrology. Will start nicardipine gtt and ordered change to fluids. Patient seen by Dr. Morris in the department. Patient signed out to Dr. Escobedo while awaiting bed assignment upstairs. Discharge Plan Departure Patient Disposition: Admitted As Inpatient Clinical Impression: Acute kidney injury, Hypertensive urgency, Dehydration Admit Date/Time: 10/02/22 08:01 Admit Provider: Kingsley Recio
--- NOTE | 2022-10-02 03:35 | DI.CT.S_ITS ---
PROCEDURE: CT KIDNEY URETER BLADDER (KUB) INDICATIONS: N/V/D and fatigue x 1 week. TECHNIQUE: Axial sections were acquired from the lung bases to the pubic symphysis. Coronal and sagittal reformats were performed. For radiation dose reduction, the following was used: automated exposure control, adjustment of mA and/or kV according to patient size. COMPARISON: [facility], CT, CT ABDOMEN PELVIS W CON, 08/27/2022, 13:41. FINDINGS: Image quality: Excellent. Lung bases: Unremarkable. Heart: Normal heart size. Coronary atherosclerotic vascular calcifications are noted. URINARY: Right Kidney: No stones or hydronephrosis. Right Ureter: No hydroureter. Left Kidney: No stones or hydronephrosis. Left Ureter: No hydroureter. Bladder: Normal wall thickness. No stones. ABDOMEN: Liver: Unremarkable. Gallbladder: Unremarkable. Biliary ducts: Unremarkable. Pancreas: Unremarkable. Spleen: Unremarkable. Adrenal Glands: Unremarkable. Stomach and Bowel: Stomach, small bowel loops, and colon are unremarkable. Normal appendix Peritoneum: No abnormal intraperitoneal fluid. No free air. Ventral Wall: There is a fat-containing umbilical hernia without acute inflammation. Abdominal Nodes: No enlarged retroperitoneal or mesenteric lymph nodes. Vessels: Aorta and inferior vena cava are normal in size. PELVIS: Pelvic Organs: Unremarkable. Pelvic Nodes: Unremarkable. Miscellaneous: No inguinal hernias are seen. Bones: No acute vertebral body compression fractures. Multilevel spondylitic changes throughout the imaged spine. No suspicious osseous lesions. IMPRESSION: CT abdomen and pelvis without acute abnormalities. No evidence for urolithiasis or obstructive uropathy. No acute inflammatory changes. No evidence for bowel obstruction. Normal appendix. Atherosclerosis. No significant discrepancy with the welder 2nd shift radiology preliminary report. Dictated by: Ric Prasad M.D. on 10/02/2022 at 7:29 Approved by: Ric Prasad M.D. on 10/02/2022 at 7:32
[2022-10-02] MEDS: SODIUM CHLORIDE 0.9% 1,000 ML 150 ML IV ×2 (03:51→14:23)
[2022-10-02 04:10] LABS: Creatine Kinase 39 U/L (55-170)
[2022-10-02 04:23] LABS: NT-proBNP (BNP-Adult 18+) 1940 pg/mL (<125); Troponin I 0.023 ng/mL (0.01-0.034)
[2022-10-02] MEDS: AMLODIPINE 5 MG TABLET 10 MG PO (04:39)
[2022-10-02] MEDS: carvediloL 12.5 MG TABLET 25 MG PO ×2 (04:39→17:01)
[2022-10-02 05:58] LABS: Creatinine Urine Random 164.8 mg/dL; Sodium Urine Random 37 mmol/L (30-90)
[2022-10-02 06:07] LABS: Bacteria Urine None Seen; Granular Casts Urine 1-5/LPF; Ictotest Urine Negative (Negative); RBC Urine 30-100/HPF (0-5/HPF); Squamous Epithelial Cell Urine None Seen (0-5/HPF); WBC Urine 1-5/HPF (0-5/HPF)
[2022-10-02 06:08] LABS: Culture Indicated Urine Cult Not Indicated
--- NOTE | 2022-10-02 06:25 | PM.HP.1 ---
History of Present Illness History of Present Illness Chief complaint: FATIGUE, VOMITING 4 DAYS Narrative: 52-year-old male insulin-dependent diabetic with chronic wounds on his lower extremities, hypertension that is not well controlled diabetic gastroparesis.? With complaint of fatigue and vomiting for the past 5 days.? Patient states Sunday he started having issues keeping stuff down.? He has had issues with gastroparesis from his diabetes in the past.? He states no abdominal back or flank pain.? No fevers or chills objectively but has felt sweaty and hot intermittently.? Patient denies any chest pain or pressure, no shortness of breath.? He denies any cold cough or congestion.? States he has not had many bowel movements in the past for 5 days but has been passing gas regularly.? He denies any distention.? Patient states no dysuria, urgency or frequency.? No decrease in urine output or hematuria.? Patient states he was here on the 23 of September for somewhat similar symptoms and it got better but then sort of reoccurred.? Patient states remote history of surgery on the bone in his left foot.? No known drug allergies.? No tobacco, alcohol or illicit currently.? Primary care is Dr. Ovalles.? Patient is following regularly with wound care for his lower extremities which he states have been well controlled.? He does have Unna boots on currently.? Patient states he is supposed to be seen this morning, Sunday morning at wound care. [facility] Medical History (Updated 10/02/22 @ 06:34 by [place] MD) Congestive heart failure COVID Diabetes mellitus Hypertension Ulcer of left lower leg Ulcer of right leg Surgical History History of foot surgery Family History Father Myocardial infarction Mother Diabetes mellitus Brother Diabetes mellitus Social History household members: spouse and children Smoking Status: Former smoker alcohol intake: never Meds Home Medications and Allergies Home Medications Medication Instructions Recorded Confirmed Type amlodipine 10 mg tablet 10 mg PO DAILY 03/14/18 09/23/22 History carvedilol 25 mg tablet 25 mg PO 1300 03/14/18 09/23/22 History lisinopril 40 mg tablet 40 mg PO QAM 03/14/18 09/23/22 History metformin 500 mg tablet 750 mg PO BID 03/14/18 09/23/22 History insulin glargine U-300 conc 300 12 unit SUBCUT BID 03/13/22 09/23/22 History unit/mL (1.5 mL) subcutaneous pen (Toujeo SoloStar U-300 Insulin) metoclopramide HCl 10 mg tablet 10 mg PO QACHS #120 tabs 06/15/22 09/23/22 Rx ondansetron 4 mg disintegrating 4 mg PO Q6H PRN nausea and 08/22/22 09/23/22 Rx tablet vomiting #14 tabs insulin lispro 100 unit/mL 12 - 15 unit SUBCUT QID 09/23/22 09/23/22 History subcutaneous pen (Humalog KwikPen (U-100) Insulin) Allergies Allergy/AdvReac Type Severity Reaction Status Date / Time No Known Drug Allergies Allergy Verified 09/23/22 10:44 Review of Systems Constitutional Constitutional: Reports as per HPI and Reports system reviewed and no additional complaints, except as documented Eyes Eyes: Reports as per HPI and Reports system reviewed and no additional complaints, except as documented ENT Ears, Nose, Mouth, and Throat: Yes as per HPI, Yes system reviewed and no additional complaints, except as documented and No neck pain Cardiovascular Cardiovascular: Reports system reviewed and no additional complaints, except as documented Respiratory Respiratory: Reports system reviewed and no additional complaints, except as documented Gastrointestinal Comments: Nausea vomiting and diarrhea Musculoskeletal Musculoskeletal: Denies as per HPI, Denies system reviewed and no additional complaints, except as documented, Denies abnormal gait, Denies back pain, Denies myalgias, Denies arthralgias, Denies joint swelling, Denies muscle cramps, Denies muscle weakness, Denies neck pain, Denies numbness and Denies radiating pain into limb Neurologic Neurologic: Denies abnormal gait, Denies confusion and Denies numbness Psychiatric Psychiatric: Denies as per HPI, Reports system reviewed and no additional complaints, except as documented, Denies abnormal sleep pattern, Denies anxiety, Denies change in appetite, Denies confusion, Denies depression and Denies auditory hallucinations Exam Vital Signs (past 8 hours): - 10/02/22 00:53 10/02/22 01:40 10/02/22 01:45 Temperature 96.8 F L Pulse Rate 104 H 95 H Respiratory Rate 12 Blood Pressure 186/117 H 203/125 H Pulse Oximetry 99 97 Oxygen Delivery Method Room Air 10/02/22 01:45 10/02/22 02:00 10/02/22 02:00 Temperature Pulse Rate 92 H 90 Respiratory Rate 18 18 Blood Pressure 179/110 H Pulse Oximetry 97 97 Oxygen Delivery Method Room Air 10/02/22 02:30 10/02/22 02:40 10/02/22 03:00 Temperature Pulse Rate 81 79 76 Respiratory Rate 13 14 14 Blood Pressure Pulse Oximetry 97 97 96 Oxygen Delivery Method 10/02/22 04:39 10/02/22 03:30 10/02/22 03:30 Temperature Pulse Rate 75 86 Respiratory Rate 17 Blood Pressure 236/132 H 229/119 H Pulse Oximetry 98 Oxygen Delivery Method 10/02/22 04:00 10/02/22 04:00 10/02/22 04:27 Temperature Pulse Rate 79 80 Respiratory Rate 13 14 Blood Pressure 224/119 H Pulse Oximetry 97 98 Oxygen Delivery Method 10/02/22 04:27 10/02/22 04:30 10/02/22 04:30 Temperature Pulse Rate 79 Respiratory Rate 12 Blood Pressure 241/122 H 236/132 H Pulse Oximetry 97 Oxygen Delivery Method 10/02/22 05:00 10/02/22 05:00 10/02/22 05:30 Temperature Pulse Rate 72 95 H Respiratory Rate 13 11 L Blood Pressure 203/111 H Pulse Oximetry 97 Oxygen Delivery Method 10/02/22 05:31 Temperature Pulse Rate 96 H Respiratory Rate 21 Blood Pressure Pulse Oximetry Oxygen Delivery Method Oxygen Delivery Method Room Air Const General: cooperative, comfortable and well developed Orientation: alert and oriented x3 HENMT Head: normal to inspection and atraumatic Face and sinus: normal facial exam Mouth: oral mucosae normal and moist mucous membranes Throat: posterior oropharynx normal Eyes General: appearance normal, both eyes and all related structures Pupils: PERRL EOM: EOM intact bilaterally Neck Neck: normal visual inspection and full ROM Chest Chest: normal inspection of the chest Resp Effort & Inspection: normal respiratory effort and able to speak in complete sentences Auscultation: clear to auscultation bilaterally Cardio Palpation: normal PMI Rate: regular rate Rhythm: regular rhythm Heart Sounds: S1 normal and S2 normal GI Inspection: normal to inspection Palpation: soft and no hepatosplenomegaly Auscultation: normal bowel sounds Skin General: no rashes or lesions noted Neuro General: patient alert, patient awake, patient oriented x3 and no focal motor deficits Cognition: normal cognition Motor: muscle tone normal throughout Sensory Exam: no sensory deficits noted Extrem General: full ROM and no calf tenderness Psych Appearance: grossly normal Mental Status: mental status grossly normal Speech and Movement: speech and movement normal Objective Labs 10/02/22 01:50 10/02/22 01:50 Labs: Laboratory Results - last 24 hr 10/02/22 10/02/22 10/02/22 01:50 01:50 01:50 WBC 11.4 H RBC 4.45 L Hgb 12.1 L Hct 35.7 L MCV 80.1 MCH 27.3 MCHC 34.0 RDW 14.3 Plt Count 412 H Neut % (Auto) 78.2 H Lymph % (Auto) 14.2 L [place] % (Auto) 5.5 Eos % (Auto) 1.2 L Baso % (Auto) 0.9 Neut # (Auto) 8900 H Lymph # (Auto) 1600 [place] # (Auto) 600 Eos # (Auto) 100 Baso # (Auto) 100 Sodium 137 Potassium 3.5 Chloride 96 L Carbon Dioxide 28 BUN 52 H Creatinine 2.55 H Estimated GFR 29 L BUN/Creatinine Ratio 20.4 Glucose 151 H Lactate 1.5 Calcium 9.0 Total Bilirubin 0.8 AST 29 ALT 19 Alkaline Phosphatase 60 Total Creatine Kinase Troponin I NT-Pro-B Natriuret Pep Total Protein 8.4 H Albumin 4.0 Globulin 4.4 H Albumin/Globulin Ratio 0.9 L Lipase 125 Procalcitonin Ur Bilirubin Confirm Urine RBC Urine WBC Ur Squamous Epith Cells Urine Bacteria Granular Casts Ur Culture Indicated? Ur Random Sodium Urine Creatinine 10/02/22 10/02/22 10/02/22 01:50 01:50 05:36 WBC RBC Hgb Hct MCV MCH MCHC RDW Plt Count Neut % (Auto) Lymph % (Auto) [place] % (Auto) Eos % (Auto) Baso % (Auto) Neut # (Auto) Lymph # (Auto) [place] # (Auto) Eos # (Auto) Baso # (Auto) Sodium Potassium Chloride Carbon Dioxide BUN Creatinine Estimated GFR BUN/Creatinine Ratio Glucose Lactate Calcium Total Bilirubin AST ALT Alkaline Phosphatase Total Creatine Kinase 39 L Troponin I 0.023 NT-Pro-B Natriuret Pep 1940 H Total Protein Albumin Globulin Albumin/Globulin Ratio Lipase Procalcitonin 0.15 Ur Bilirubin Confirm Urine RBC Urine WBC Ur Squamous Epith Cells Urine Bacteria Granular Casts Ur Culture Indicated? Ur Random Sodium 37 Urine Creatinine 164.8 10/02/22 05:36 WBC RBC Hgb Hct MCV MCH MCHC RDW Plt Count Neut % (Auto) Lymph % (Auto) [place] % (Auto) Eos % (Auto) Baso % (Auto) Neut # (Auto) Lymph # (Auto) [place] # (Auto) Eos # (Auto) Baso # (Auto) Sodium Potassium Chloride Carbon Dioxide BUN Creatinine Estimated GFR BUN/Creatinine Ratio Glucose Lactate Calcium Total Bilirubin AST ALT Alkaline Phosphatase Total Creatine Kinase Troponin I NT-Pro-B Natriuret Pep Total Protein Albumin Globulin Albumin/Globulin Ratio Lipase Procalcitonin Ur Bilirubin Confirm Negative Urine RBC 30-100/hpf H Urine WBC 1-5/hpf Ur Squamous Epith Cells None seen Urine Bacteria None seen Granular Casts 1-5/lpf Ur Culture Indicated? Cult not indicated Ur Random Sodium Urine Creatinine Assessment & Plan Assessment and plan (1) Acute dehydration: Status: Acute Plan: -IV fluids (2) Acute kidney injury: Problem details: Presented with creatinine 2.45, baseline between 1-1.45. Most likely pre-renal. Status: Acute Plan: -continue with IV fluid hydration. -hold ACEI -monitor UOP. -daily BMP -Renal U/S -Avoid any nephrotoxic agents, including NSAIDs -Continue to monitor BP. Avoid drastic lowering of blood pressure in order to maintain a good renal perfusion -Dose all medications according pt's current eGFR -nephrology consult (3) Diabetic foot ulcer: Status: Acute Plan: -Wound care consult -Regular dressing (4) Diabetes mellitus: Status: Acute Plan: -Continue to monitor blood sugar. -Continue prior to admission Insulin and hold Metformine. -Continue diabetic diet with sliding scale insulins with NovoLog sliding scale. -Long-acting insulins in appropriate dosing with Detemir. -hypoglycemia protocol as needed (5) Hypertension: Status: Acute Plan: - Hold Lisinopril -Hydralazine prn Time Spent With Patient Time with patient: 50 to 69 minutes with 50% spent counseling/coordinating care Quality VTE Deep Vein Thrombosis/Pulmonary Embolism Present on Admission: No MIPS - Admit I confirm the patient?s Advance Care Plan is present, Code status is documented, Surrogate decision maker is in patient?s record [If Yes, STOP here]: Yes MIPS - Meds 'Current medications' to include all prescriptions, [id number] products, herbals, cannabis/cannabidiol products, and vitamin/mineral/dietary (nutritional) supplements. I have utilized all available resources to obtain, update, or review the patient?s current medications. [If Yes, STOP here]: Yes
--- NOTE | 2022-10-02 06:51 | DI.US.S_ITS ---
PROCEDURE: US ABDOMEN COMPLETE INDICATIONS: ELEVATED CREATININE TECHNIQUE: Real-time scanning was performed of the abdominal and retroperitoneal organs, with image documentation. COMPARISON: [facility], CT, CT KIDNEY URETER BLADDER (KUB), 10/02/2022, 4:15. [facility], US, US ABDOMEN LIMITED, 02/06/2022, 3:02. FINDINGS: Liver: Liver is normal in size and homogeneous in echotexture. Gallbladder: Gallbladder sludge is seen in the gallbladder neck. No gallstones. Normal wall thickening. No pericholecystic fluid or sonographic Bolton sign. Biliary ducts: Intrahepatic bile ducts are non-dilated. Extrahepatic bile duct caliber measures 4.6 mm. Normal is 6-7 mm or less in diameter, or 10 mm or less post-cholecystectomy. Pancreas: Not visualized secondary to overlying bowel gas. Spleen: Spleen is normal in size and homogeneous in echotexture. Kidneys: Kidneys are normal in size and echotexture. Right kidney measures 13.0 cm long; left kidney measures 12.2 cm long. No hydronephrosis or nephrolithiasis. No solid masses. Aorta: Visualized aorta is normal in caliber at less than 3 cm. Iliacs: Proximal common iliac arteries are normal in caliber at less than 2.5 cm. IMPRESSION: Gallbladder sludge is present. Otherwise, the gallbladder is unremarkable. Otherwise, no acute abnormalities are seen. The kidneys are normal in appearance without hydronephrosis. Dictated by: Shyam Davis M.D. on 10/02/2022 at 7:54 Approved by: Shyam Davis M.D. on 10/02/2022 at 7:58
[2022-10-02 07:42] LABS: BUN Creatinine Ratio 21.4 (6-22); Blood Urea Nitrogen 48 mg/dL (9-20); Calcium 8.4 mg/dL (8.4-10.2); Carbon Dioxide 29 mmol/L (22-32); Chloride 100 mmol/L (98-107); Estimated Glomerular Filt Rate 34 mL/min (>60); Glucose 123 mg/dL (70-100); HEMOLYSIS < 15 (0-50); Potassium 3.3 mmol/L (3.4-5.1); Sodium 137 mmol/L (137-145)
--- NOTE | 2022-10-02 07:42 | PC.NURSE ---
Spoke with hospitalist to confirm Nicardipine. MD advises to start at 5mg/hr with target BP 150-160 systolic. Called pharmacy to request med. Pt is A&Ox4, resting comfortably, denies pain or discomfort.
[2022-10-02 07:43] LABS: Cholesterol 191 mg/dL (140-199); HDL Cholesterol 27 mg/dL (40-60); LDL Cholesterol Calculated 138 mg/dL (<100); Triglycerides 130 mg/dL (35-150)
[2022-10-02] MEDS: INSULIN LISPRO 100 UNIT/ML 3ML VIAL 12 UNIT SUBCUT ×3 (07:55→20:58)
[2022-10-02] MEDS: POTASSIUM CHLORIDE 20 MEQ TAB 40 MEQ PO (07:57)
[2022-10-02] MEDS: LACTATED RINGERS 1,000 ML 150 ML IV (07:58)
--- NOTE | 2022-10-02 08:16 | PC.NURSE ---
Provided breakfast. Called report to RANI Lima.
--- NOTE | 2022-10-02 09:12 | PC.NURSE ---
Patient brought up from ER to room 230. Oriented to room and call light. SR on telemetry. Denies pain, denies n/v at this time. States he is feeling a little better and tolerating drinking his coffee. Current BP 148/88, nicardipine infusion was not started in ER. Dr. Recio notified and gtt to be held at this time. Will continue to monitor.
[2022-10-02] MEDS: MAGNESIUM SULFATE 2 GM/50 ML PIGGYBACK IV (09:59)
[2022-10-02] MEDS: INSULIN GLARGINE 100 UNIT/ML 3ML PEN 12 UNIT SUBCUT ×2 (10:05→20:57)
--- NOTE | 2022-10-02 11:28 | PT-IP ANOTE ---
Received PT orders and completed chart review. Per discussion at AM interdisciplinary rounds, pt has no acute PT needs. Will discharge therapy orders. Please re-consult if mobility status changes.
--- NOTE | 2022-10-02 13:11 | OT.IPNOTE ---
Received OT orders and completed chart review. Per discussion at AM interdisciplinary rounds, pt has no acute OT needs. Will discharge therapy orders. Please re-consult if mobility status changes.
[2022-10-02] MEDS: HYDRALAZINE 25 MG TABLET PO ×2 (14:19→20:56)
[2022-10-02 15:19] LABS: BUN Creatinine Ratio 23.2 (6-22); Blood Urea Nitrogen 49 mg/dL (9-20); Calcium 8.4 mg/dL (8.4-10.2); Carbon Dioxide 27 mmol/L (22-32); Chloride 98 mmol/L (98-107); Estimated Glomerular Filt Rate 37 mL/min (>60); Glucose 143 mg/dL (70-100); HEMOLYSIS < 15 (0-50); Potassium 3.9 mmol/L (3.4-5.1); Sodium 135 mmol/L (137-145)
--- NOTE | 2022-10-02 15:46 | PM.HP.1 ---
History of Present Illness History of Present Illness Chief complaint: FATIGUE, VOMITING 4 DAYS Narrative: 52-year-old male insulin-dependent diabetic with chronic wounds on his lower extremities, hypertension that is not well controlled diabetic gastroparesis.? With complaint of fatigue and vomiting for the past 5 days.? Patient states Sunday he started having issues keeping stuff down.? He has had issues with gastroparesis from his diabetes in the past.? He states no abdominal back or flank pain.? No fevers or chills objectively but has felt sweaty and hot intermittently.? Patient denies any chest pain or pressure, no shortness of breath.? He denies any cold cough or congestion.? States he has not had many bowel movements in the past for 5 days but has been passing gas regularly.? He denies any distention.? Patient states no dysuria, urgency or frequency.? No decrease in urine output or hematuria.? Patient states he was here on the 23 of September for somewhat similar symptoms and it got better but then sort of reoccurred.? Patient states remote history of surgery on the bone in his left foot.? No known drug allergies.? No tobacco, alcohol or illicit currently.? Primary care is Dr. Ovalles.? Patient is following regularly with wound care for his lower extremities which he states have been well controlled.? He does have Unna boots on currently.? Patient states he is supposed to be seen this morning, Sunday morning at wound care. Addendum: Patient feeling alot better now. BP high but improved to 160's systolic. No nicardipine drip needed. He couldn't take his BP meds last night due to nausea. [facility] Medical History (Updated 10/02/22 @ 06:34 by South Morris MD) Congestive heart failure COVID Diabetes mellitus Hypertension Ulcer of left lower leg Ulcer of right leg Surgical History History of foot surgery Family History Father Myocardial infarction Mother Diabetes mellitus Brother Diabetes mellitus Social History household members: spouse and children Smoking Status: Former smoker alcohol intake: never Meds Home Medications and Allergies Home Medications Medication Instructions Recorded Confirmed Type amlodipine 10 mg tablet 10 mg PO DAILY 03/14/18 10/02/22 History carvedilol 25 mg tablet 25 mg PO DAILY 03/14/18 10/02/22 History lisinopril 40 mg tablet 40 mg PO QAM 03/14/18 10/02/22 History metformin 500 mg tablet 750 mg PO BID 03/14/18 10/02/22 History insulin glargine U-300 conc 300 12 unit SUBCUT BID 03/13/22 10/02/22 History unit/mL (1.5 mL) subcutaneous pen (Toujeo SoloStar U-300 Insulin) insulin lispro 100 unit/mL 12 - 15 unit SUBCUT TID 09/23/22 10/02/22 History subcutaneous pen (Humalog KwikPen (U-100) Insulin) Allergies Allergy/AdvReac Type Severity Reaction Status Date / Time No Known Drug Allergies Allergy Verified 09/23/22 10:44 Review of Systems Constitutional Constitutional: Reports as per HPI and Reports system reviewed and no additional complaints, except as documented Eyes Eyes: Reports as per HPI and Reports system reviewed and no additional complaints, except as documented ENT Ears, Nose, Mouth, and Throat: Yes as per HPI, Yes system reviewed and no additional complaints, except as documented and No neck pain Cardiovascular Cardiovascular: Reports system reviewed and no additional complaints, except as documented Respiratory Respiratory: Reports system reviewed and no additional complaints, except as documented Gastrointestinal Comments: Nausea vomiting and diarrhea Musculoskeletal Musculoskeletal: Denies as per HPI, Denies system reviewed and no additional complaints, except as documented, Denies abnormal gait, Denies back pain, Denies myalgias, Denies arthralgias, Denies joint swelling, Denies muscle cramps, Denies muscle weakness, Denies neck pain, Denies numbness and Denies radiating pain into limb Neurologic Neurologic: Denies abnormal gait, Denies confusion and Denies numbness Psychiatric Psychiatric: Denies as per HPI, Reports system reviewed and no additional complaints, except as documented, Denies abnormal sleep pattern, Denies anxiety, Denies change in appetite, Denies confusion, Denies depression and Denies auditory hallucinations Exam Vital Signs (past 8 hours): - 10/02/22 08:00 10/02/22 08:00 10/02/22 09:00 Temperature Pulse Rate 69 78 Respiratory Rate 14 15 Blood Pressure 166/95 H Pulse Oximetry 96 98 Oxygen Delivery Method 10/02/22 09:00 10/02/22 09:30 10/02/22 09:30 Temperature Pulse Rate 78 Respiratory Rate 13 Blood Pressure 148/88 H 151/90 H Pulse Oximetry 97 Oxygen Delivery Method 10/02/22 10:00 10/02/22 10:00 10/02/22 10:30 Temperature Pulse Rate 76 75 Respiratory Rate 14 14 Blood Pressure 161/100 H Pulse Oximetry 97 97 Oxygen Delivery Method 10/02/22 11:00 10/02/22 11:30 10/02/22 12:00 Temperature Pulse Rate 75 73 72 Respiratory Rate 13 16 14 Blood Pressure Pulse Oximetry 98 95 97 Oxygen Delivery Method 10/02/22 12:03 10/02/22 13:00 10/02/22 13:10 Temperature Pulse Rate 75 79 Respiratory Rate 19 14 Blood Pressure 167/96 H 178/103 H Pulse Oximetry 98 97 Oxygen Delivery Method 10/02/22 13:10 10/02/22 13:30 10/02/22 13:00 Temperature 97.7 F Pulse Rate 76 79 Respiratory Rate 13 21 Blood Pressure Pulse Oximetry 98 97 Oxygen Delivery Method 10/02/22 14:20 10/02/22 14:20 10/02/22 08:13 Temperature Pulse Rate 80 80 Respiratory Rate 16 16 Blood Pressure 153/94 H Pulse Oximetry 94 94 Oxygen Delivery Method Room Air 10/02/22 15:02 Temperature Pulse Rate 79 Respiratory Rate 13 Blood Pressure Pulse Oximetry Oxygen Delivery Method Oxygen Delivery Method Room Air Const General: cooperative, comfortable and well developed Orientation: alert and oriented x3 HENMT Head: normal to inspection and atraumatic Face and sinus: normal facial exam Mouth: oral mucosae normal and moist mucous membranes Throat: posterior oropharynx normal Eyes General: appearance normal, both eyes and all related structures Pupils: PERRL EOM: EOM intact bilaterally Neck Neck: normal visual inspection and full ROM Chest Chest: normal inspection of the chest Resp Effort & Inspection: normal respiratory effort and able to speak in complete sentences Auscultation: clear to auscultation bilaterally Cardio Palpation: normal PMI Rate: regular rate Rhythm: regular rhythm Heart Sounds: S1 normal and S2 normal GI Inspection: normal to inspection Palpation: soft and no hepatosplenomegaly Auscultation: normal bowel sounds Skin General: no rashes or lesions noted Neuro General: patient alert, patient awake, patient oriented x3 and no focal motor deficits Cognition: normal cognition Motor: muscle tone normal throughout Sensory Exam: no sensory deficits noted Extrem General: full ROM and no calf tenderness Psych Appearance: grossly normal Mental Status: mental status grossly normal Speech and Movement: speech and movement normal Objective Labs 10/02/22 01:50 10/02/22 14:45 Labs: Laboratory Results - last 24 hr 10/02/22 10/02/22 10/02/22 01:50 01:50 01:50 WBC 11.4 H RBC 4.45 L Hgb 12.1 L Hct 35.7 L MCV 80.1 MCH 27.3 MCHC 34.0 RDW 14.3 Plt Count 412 H Neut % (Auto) 78.2 H Lymph % (Auto) 14.2 L [place] % (Auto) 5.5 Eos % (Auto) 1.2 L Baso % (Auto) 0.9 Neut # (Auto) 8900 H Lymph # (Auto) 1600 [place] # (Auto) 600 Eos # (Auto) 100 Baso # (Auto) 100 Sodium 137 Potassium 3.5 Chloride 96 L Carbon Dioxide 28 BUN 52 H Creatinine 2.55 H Estimated GFR 29 L BUN/Creatinine Ratio 20.4 Glucose 151 H Lactate 1.5 Calcium 9.0 Total Bilirubin 0.8 AST 29 ALT 19 Alkaline Phosphatase 60 Total Creatine Kinase Troponin I NT-Pro-B Natriuret Pep Total Protein 8.4 H Albumin 4.0 Globulin 4.4 H Albumin/Globulin Ratio 0.9 L Triglycerides Cholesterol LDL Cholesterol, Calc HDL Cholesterol Lipase 125 Procalcitonin Ur Bilirubin Confirm Urine RBC Urine WBC Ur Squamous Epith Cells Urine Bacteria Granular Casts Ur Culture Indicated? Ur Random Sodium Urine Creatinine 10/02/22 10/02/22 10/02/22 01:50 01:50 05:36 WBC RBC Hgb Hct MCV MCH MCHC RDW Plt Count Neut % (Auto) Lymph % (Auto) [place] % (Auto) Eos % (Auto) Baso % (Auto) Neut # (Auto) Lymph # (Auto) [place] # (Auto) Eos # (Auto) Baso # (Auto) Sodium Potassium Chloride Carbon Dioxide BUN Creatinine Estimated GFR BUN/Creatinine Ratio Glucose Lactate Calcium Total Bilirubin AST ALT Alkaline Phosphatase Total Creatine Kinase 39 L Troponin I 0.023 NT-Pro-B Natriuret Pep 1940 H Total Protein Albumin Globulin Albumin/Globulin Ratio Triglycerides Cholesterol LDL Cholesterol, Calc HDL Cholesterol Lipase Procalcitonin 0.15 Ur Bilirubin Confirm Urine RBC Urine WBC Ur Squamous Epith Cells Urine Bacteria Granular Casts Ur Culture Indicated? Ur Random Sodium 37 Urine Creatinine 164.8 10/02/22 10/02/22 10/02/22 05:36 06:58 06:58 WBC RBC Hgb Hct MCV MCH MCHC RDW Plt Count Neut % (Auto) Lymph % (Auto) [place] % (Auto) Eos % (Auto) Baso % (Auto) Neut # (Auto) Lymph # (Auto) [place] # (Auto) Eos # (Auto) Baso # (Auto) Sodium 137 Potassium 3.3 L Chloride 100 Carbon Dioxide 29 BUN 48 H Creatinine 2.24 H Estimated GFR 34 L BUN/Creatinine Ratio 21.4 Glucose 123 H Lactate Calcium 8.4 Total Bilirubin AST ALT Alkaline Phosphatase Total Creatine Kinase Troponin I NT-Pro-B Natriuret Pep Total Protein Albumin Globulin Albumin/Globulin Ratio Triglycerides 130 Cholesterol 191 LDL Cholesterol, Calc 138 H HDL Cholesterol 27 L Lipase Procalcitonin Ur Bilirubin Confirm Negative Urine RBC 30-100/hpf H Urine WBC 1-5/hpf Ur Squamous Epith Cells None seen Urine Bacteria None seen Granular Casts 1-5/lpf Ur Culture Indicated? Cult not indicated Ur Random Sodium Urine Creatinine 10/02/22 14:45 WBC RBC Hgb Hct MCV MCH MCHC RDW Plt Count Neut % (Auto) Lymph % (Auto) [place] % (Auto) Eos % (Auto) Baso % (Auto) Neut # (Auto) Lymph # (Auto) [place] # (Auto) Eos # (Auto) Baso # (Auto) Sodium 135 L Potassium 3.9 Chloride 98 Carbon Dioxide 27 BUN 49 H Creatinine 2.11 H Estimated GFR 37 L BUN/Creatinine Ratio 23.2 H Glucose 143 H Lactate Calcium 8.4 Total Bilirubin AST ALT Alkaline Phosphatase Total Creatine Kinase Troponin I NT-Pro-B Natriuret Pep Total Protein Albumin Globulin Albumin/Globulin Ratio Triglycerides Cholesterol LDL Cholesterol, Calc HDL Cholesterol Lipase Procalcitonin Ur Bilirubin Confirm Urine RBC Urine WBC Ur Squamous Epith Cells Urine Bacteria Granular Casts Ur Culture Indicated? Ur Random Sodium Urine Creatinine Assessment & Plan Assessment and plan (1) Acute dehydration: Status: Acute Plan: -IV fluids (2) Hypertensive urgency: Status: Inactive Plan: -BP's up to 220's sytolic -likely due to not being able to take po BP home meds -given amlodipine, coreg -hydralazine po added (3) Acute kidney injury: Problem details: Presented with creatinine 2.45, baseline between 1-1.45. Most likely pre-renal. Status: Acute Plan: -continue with IV fluid hydration. -hold ACEI -monitor UOP. -daily BMP -Renal U/S negative -Avoid any nephrotoxic agents, including NSAIDs -Continue to monitor BP. Avoid drastic lowering of blood pressure in order to maintain a good renal perfusion -Dose all medications according pt's current eGFR -nephrology consulted by ED and rec IVF alone -Cr now downtrending (4) Diabetic foot ulcer: Status: Acute Plan: -Wound care consult -Regular dressing (5) Diabetes mellitus: Status: Acute Plan: -Continue to monitor blood sugar. -Continue prior to admission Insulin and hold Metformine. -Continue diabetic diet with sliding scale insulins with NovoLog sliding scale. -Long-acting insulins in appropriate dosing with Detemir. -hypoglycemia protocol as needed Time Spent With Patient Time with patient: 50 to 69 minutes with 50% spent counseling/coordinating care Quality VTE Deep Vein Thrombosis/Pulmonary Embolism Present on Admission: No
--- NOTE | 2022-10-02 21:56 | PC.NURSE ---
Home Management Supervisor Notes-A/O x4, denies pain or nausea, eating and drinking. CBG 175, per patient request 10 units 'fast acting' and 10 units 'long acting' given. BP 172/103 PO hydralizine given as scheduled. NSR.
[2022-10-02 23:07] LABS: MRSA (Nasal) PCR Not Detected (Not Detect)
[2022-10-03] VITALS (54 sets, daily range): BP systolic 133–198; BP diastolic 80–110; PULSE 63–81; RESP 13–22; TEMP 36.1–36.5; O2SAT 96–100
[2022-10-03] MEDS: SODIUM CHLORIDE 0.9% 1,000 ML 75 ML IV ×2 (04:08→17:43)
[2022-10-03 04:49] LABS: Add Manual Diff / Slide Review NO; Basophils Absolute Auto 100 /uL (0-100); Basophils Percent Auto 0.6 % (0-2); Eosinophils Absolute Auto 300 /uL (0-450); Eosinophils Percent Auto 3.4 % (2-4); Hematocrit 28.6 % (41-53); Hemoglobin 9.9 g/dL (13.5-17.5); Lymphocytes Absolute Auto 2300 /uL (1100-4500); Lymphocytes Percent Auto 22.7 % (25-40); Mean Corpuscular HGB Conc 34.6 % (30-36); Mean Corpuscular Hemoglobin 27.5 PG (26-34); Mean Corpuscular Volume 79.6 fL (80-100); Monocytes Absolute Auto 700 /uL (0-900); Monocytes Percent Auto 7.2 % (3-14); Neutrophils Absolute Auto 6700 /uL (1500-7000); Neutrophils Percent Auto 66.1 % (50-75); Platelet Count 281 X10^3/uL (150-400); White Blood Cell Count 10.1 X10^3/uL (4.5-11.0)
[2022-10-03 05:11] LABS: BUN Creatinine Ratio 22.8 (6-22); Blood Urea Nitrogen 43 mg/dL (9-20); Calcium 7.6 mg/dL (8.4-10.2); Carbon Dioxide 25 mmol/L (22-32); Chloride 100 mmol/L (98-107); Estimated Glomerular Filt Rate 42 mL/min (>60); Glucose 92 mg/dL (70-100); HEMOLYSIS < 15 (0-50); Magnesium 2.1 mg/dL (1.6-2.3); Potassium 3.7 mmol/L (3.4-5.1); Sodium 133 mmol/L (137-145)
[2022-10-03] MEDS: AMLODIPINE 5 MG TABLET 10 MG PO (08:07)
[2022-10-03] MEDS: carvediloL 12.5 MG TABLET 25 MG PO ×2 (08:08→17:54)
[2022-10-03] MEDS: POTASSIUM CHLORIDE 20 MEQ TAB PO (08:08)
[2022-10-03] MEDS: INSULIN GLARGINE 100 UNIT/ML 3ML PEN 12 UNIT SUBCUT ×2 (08:25→20:54)
[2022-10-03] MEDS: INSULIN LISPRO 100 UNIT/ML 3ML VIAL 12 UNIT SUBCUT ×3 (08:26→20:55)
[2022-10-03] MEDS: CHLORTHALIDONE 25 MG TABLET PO (09:09)
--- NOTE | 2022-10-03 09:21 | PC.NURSE ---
In am, provider placed discharge orders. RN informed patient of discharge orders and patient said he had concerns about recurring issues (he explained that he was in the ED last week for same issues) and wanted to speak with provider. RN educated patient of improving kidney function labs and patient tolerating oral meds. RN relayed pt concerns and pt's request to speak with provider.
--- NOTE | 2022-10-03 13:36 | CM.DANOTE ---
Patient is a 52 yo male who was admitted on 10/02/22 for Fatigue and Vomiting. Pt has REG PPO for insurance and his PCP is Toño Ovalles. EMR was reviewed. Per MD, pt with hx of diabetes and chronic wounds and admitted for dehydration and MICHAEL and receiving fluids and treatment and pt not yet stable for d/c today as too high a risk of readmission and likely stable for d/c tomorrow. SW met bedside with pt and explained role and pt very pleasant and confirms he lives in [place] in an apartment and is currently single and has local supportive family. Pt drives and works and is established with [facility] and has once a week appointments for follow up. Pt denies any hx of HH or SNF and states he has been able to ambulate and be independent in room and does not anticipate any needs at d/c. Pt states his vehicle is in the parking lot and can drive himself the couple blocks home but has supportive family if any assist needed. Pt looking forward to d/c home tomorrow as he states he has feel so poorly the past couple months with many ED visits and is glad to be feeling better. Plan: SW to follow for likely d/c home tomorrow if medically stable via own POV in the parking lot and any further identified discharge planning needs. CHUCHO Marte Discharge Planning/Care Management CM Discharge Assessment Start: 10/03/22 13:14 Freq: Status: Active Protocol: Document 10/03/22 13:14 BF (Rec: 10/03/22 13:36 BF [id number]) Discharge Planning Assessment Assigned White Mixing Operator [place] DPOA/Assigned Designee Name none Advance Directives? No Advance Directives on File No History Provided By Patient,Medical Record Has Patient been admitted in last 30 No days? Comment Lots of ED visits Prior Living Arrangements Apartment/Condo Household Members children Type of transporation used prior to Drives own vehicle admit Independent with ADL's Yes Is patient alert and oriented? Yes Caregiver for Another No DME Already Rented / Owned Cane Barriers to Discharge No Comment He has supportive family members. Discharge Plan Home Transportation Arrangement Has own vehicle in the parking lot Referrals Initiated None needed Additional Comment Patient is already established at wound clinic in [facility] Whiteboard Updated in Patient Room with Yes name and ext. # of White Mixing Operator Review Status In Process Please Provide Date Initial DC 10/03/22 Assessment Was Performed Next Review Type Continued Stay Review
--- NOTE | 2022-10-03 16:38 | P.PN_ITS ---
Subjective Subjective Interval history: Patient feeling better, but he is nervous to go home until his kidney function is fully better. Cr down to 1.89. Exam Vital Signs (past 8 hours): - 10/03/22 09:00 10/03/22 09:07 10/03/22 09:07 Temperature Pulse Rate 77 72 Respiratory Rate Blood Pressure 133/80 Pulse Oximetry Oxygen Flow Rate 10/03/22 09:30 10/03/22 10:00 10/03/22 10:16 Temperature Pulse Rate 70 72 Respiratory Rate Blood Pressure 141/89 H Pulse Oximetry Oxygen Flow Rate 10/03/22 10:16 10/03/22 10:20 10/03/22 12:00 Temperature 96.9 F L 97.5 F L Pulse Rate 74 73 Respiratory Rate 22 18 Blood Pressure 147/95 H Pulse Oximetry 100 99 Oxygen Flow Rate 0 0 Oxygen Delivery Method Room Air Oxygen Flow Rate 0 Const General: cooperative, comfortable and well developed Orientation: alert and oriented x3 HENMT Head: normal to inspection and atraumatic Face and sinus: normal facial exam Mouth: oral mucosae normal and moist mucous membranes Throat: posterior oropharynx normal Eyes General: appearance normal, both eyes and all related structures Pupils: PERRL EOM: EOM intact bilaterally Neck Neck: normal visual inspection and full ROM Chest Chest: normal inspection of the chest Resp Effort & Inspection: normal respiratory effort and able to speak in complete sentences Auscultation: clear to auscultation bilaterally Cardio Palpation: normal PMI Rate: regular rate Rhythm: regular rhythm Heart Sounds: S1 normal and S2 normal GI Inspection: normal to inspection Palpation: soft and no hepatosplenomegaly Auscultation: normal bowel sounds Skin General: no rashes or lesions noted Neuro General: patient alert, patient awake, patient oriented x3 and no focal motor deficits Cognition: normal cognition Motor: muscle tone normal throughout Sensory Exam: no sensory deficits noted Extrem General: full ROM and no calf tenderness Psych Appearance: grossly normal Mental Status: mental status grossly normal Speech and Movement: speech and movement normal Objective Labs 10/03/22 04:18 10/03/22 04:18 Labs: Laboratory Results - last 24 hr 10/02/22 10/03/22 10/03/22 10:07 04:18 04:18 WBC 10.1 RBC 3.60 L Hgb 9.9 L Hct 28.6 L MCV 79.6 L MCH 27.5 MCHC 34.6 RDW 14.0 Plt Count 281 Neut % (Auto) 66.1 Lymph % (Auto) 22.7 L [place] % (Auto) 7.2 Eos % (Auto) 3.4 Baso % (Auto) 0.6 Neut # (Auto) 6700 Lymph # (Auto) 2300 [place] # (Auto) 700 Eos # (Auto) 300 Baso # (Auto) 100 Sodium 133 L Potassium 3.7 Chloride 100 Carbon Dioxide 25 BUN 43 H Creatinine 1.89 H Estimated GFR 42 L BUN/Creatinine Ratio 22.8 H Glucose 92 Calcium 7.6 L Magnesium Nasal Screen MRSA (PCR) Not detected 10/03/22 04:18 WBC RBC Hgb Hct MCV MCH MCHC RDW Plt Count Neut % (Auto) Lymph % (Auto) [place] % (Auto) Eos % (Auto) Baso % (Auto) Neut # (Auto) Lymph # (Auto) [place] # (Auto) Eos # (Auto) Baso # (Auto) Sodium Potassium Chloride Carbon Dioxide BUN Creatinine Estimated GFR BUN/Creatinine Ratio Glucose Calcium Magnesium 2.1 Nasal Screen MRSA (PCR) [facility] Medical History (Updated 10/02/22 @ 06:34 by South Morris MD) Congestive heart failure COVID Diabetes mellitus Hypertension Ulcer of left lower leg Ulcer of right leg Surgical History History of foot surgery Family History Father Myocardial infarction Mother Diabetes mellitus Brother Diabetes mellitus Social History household members: children Smoking Status: Former smoker alcohol intake: never Assessment & Plan Assessment and plan (1) Acute dehydration: Status: Acute Plan: -IV fluids (2) Hypertensive urgency: Status: Inactive Plan: -BP's up to 220's sytolic -likely due to not being able to take po BP home meds -given amlodipine, coreg -chlorthalidone 25mg daily added as patient not on diuretic (3) Acute kidney injury: Problem details: Presented with creatinine 2.45, baseline between 1-1.45. Most likely pre-renal. Status: Acute Plan: -continue with IV fluid hydration. -hold ACEI -monitor UOP. -daily BMP -Renal U/S negative -Avoid any nephrotoxic agents, including NSAIDs -Continue to monitor BP. Avoid drastic lowering of blood pressure in order to maintain a good renal perfusion -Dose all medications according pt's current eGFR -nephrology consulted by ED and rec IVF alone -Cr now downtrending (4) Diabetic foot ulcer: Status: Acute Plan: -Wound care consult -Regular dressing (5) Diabetes mellitus: Status: Acute Plan: -Continue to monitor blood sugar. -Continue prior to admission Insulin and hold Metformine. -Continue diabetic diet with sliding scale insulins with NovoLog sliding scale. -Long-acting insulins in appropriate dosing with Detemir. -hypoglycemia protocol as needed Plan Dispo: Home on 10/04. Time Spent With Patient Time with patient: 50 to 69 minutes with 50% spent counseling/coordinating care Quality VTE Deep Vein Thrombosis/Pulmonary Embolism Present on Admission: No
[2022-10-04] VITALS (20 sets, daily range): BP systolic 152–166; BP diastolic 72–90; PULSE 65–81; RESP 18; TEMP 36.2–36.5; O2SAT 94–98
[2022-10-04 04:17] LABS: Add Manual Diff / Slide Review NO; Basophils Absolute Auto 100 /uL (0-100); Basophils Percent Auto 0.8 % (0-2); Eosinophils Absolute Auto 300 /uL (0-450); Eosinophils Percent Auto 3.4 % (2-4); Hematocrit 30.8 % (41-53); Hemoglobin 10.5 g/dL (13.5-17.5); Lymphocytes Absolute Auto 1600 /uL (1100-4500); Lymphocytes Percent Auto 20.7 % (25-40); Mean Corpuscular Hemoglobin 27.2 PG (26-34); Mean Corpuscular Volume 80.2 fL (80-100); Monocytes Absolute Auto 700 /uL (0-900); Monocytes Percent Auto 8.6 % (3-14); Neutrophils Absolute Auto 5100 /uL (1500-7000); Neutrophils Percent Auto 66.5 % (50-75); Platelet Count 270 X10^3/uL (150-400); Red Blood Cell Count 3.84 X10^6/uL (4.5-5.9); Red Cell Distribution Width 13.9 % (11.6-14.8); White Blood Cell Count 7.6 X10^3/uL (4.5-11.0)
[2022-10-04 04:24] LABS: Magnesium 1.8 mg/dL (1.6-2.3)
[2022-10-04 04:27] LABS: BUN Creatinine Ratio 19.2 (6-22); Blood Urea Nitrogen 33 mg/dL (9-20); Calcium 7.8 mg/dL (8.4-10.2); Carbon Dioxide 26 mmol/L (22-32); Chloride 100 mmol/L (98-107); Estimated Glomerular Filt Rate 47 mL/min (>60); Glucose 115 mg/dL (70-100); HEMOLYSIS < 15 (0-50); Potassium 3.7 mmol/L (3.4-5.1); Sodium 134 mmol/L (137-145)
[2022-10-04] MEDS: POTASSIUM CHLORIDE 20 MEQ TAB PO (08:08)
[2022-10-04] MEDS: carvediloL 12.5 MG TABLET 25 MG PO (08:08)
[2022-10-04] MEDS: AMLODIPINE 5 MG TABLET 10 MG PO (08:09)
[2022-10-04] MEDS: CHLORTHALIDONE 25 MG TABLET PO (08:09)
[2022-10-04] MEDS: INSULIN GLARGINE 100 UNIT/ML 3ML PEN 12 UNIT SUBCUT (08:22)
--- NOTE | 2022-10-04 09:09 | CM.DPC ---
Met with pt at bedside to check-in re: any needs prior to his d/c home today. No further needs indicated. He has his own vehicle in the parking lot, feels safe to drive himself home.
--- NOTE | 2022-10-04 09:24 | CM.DPC ---
SALVAGE WINDER AND INSPECTOR reviewed chart for updates. Pt is scheduled for d/c home today, he denies any outpatient resource needs, will plan to drive his own vehicle home. He states he's feeling much better, was alert and eating his breakfast. No further d/c needs identified at this time.
--- NOTE | 2022-10-04 09:31 | PM.DS.1 ---
History of Present Illness History of Present Illness Chief complaint: FATIGUE, VOMITING 4 DAYS Narrative: 52-year-old male insulin-dependent diabetic with chronic wounds on his lower extremities, hypertension that is not well controlled diabetic gastroparesis.? With complaint of fatigue and vomiting for the past 5 days.? Patient states Sunday he started having issues keeping stuff down.? He has had issues with gastroparesis from his diabetes in the past.? He states no abdominal back or flank pain.? No fevers or chills objectively but has felt sweaty and hot intermittently.? Patient denies any chest pain or pressure, no shortness of breath.? He denies any cold cough or congestion.? States he has not had many bowel movements in the past for 5 days but has been passing gas regularly.? He denies any distention.? Patient states no dysuria, urgency or frequency.? No decrease in urine output or hematuria.? Patient states he was here on the 23 of September for somewhat similar symptoms and it got better but then sort of reoccurred.? Patient states remote history of surgery on the bone in his left foot.? No known drug allergies.? No tobacco, alcohol or illicit currently.? Primary care is Dr. Ovalles.? Patient is following regularly with wound care for his lower extremities which he states have been well controlled.? He does have Unna boots on currently.? Patient states he is supposed to be seen this morning, Sunday morning at wound care. Addendum: Patient feeling alot better now. BP high but improved to 160's systolic. No nicardipine drip needed. He couldn't take his BP meds last night due to nausea. Discharge Providers Provider Date of admission: 10/02/22 08:01 Discharge Date: 10/04/22 Primary care physician: Toño Ovalles MD Consults: 10/02/22 06:24 Consult to Occupational Therapy Evaluate & Treat Comment: Physician Instructions: Evaluate and treat Consult to Physical Therapy Evaluate & Treat Comment: Physician Instructions: Evaluate and Treat Discharge provider: Kingsley Recio, Summary Hospital Course Discharge Diagnosis: (1) Acute dehydration: ?Status:?Acute ?Plan: -IV fluids improving (2) Hypertensive urgency: ?Status:?Inactive ?Plan: -BP's up to 220's sytolic -likely due to not being able to take po BP home meds -given amlodipine, coreg -chlorthalidone 25mg daily added as patient not on diuretic -BP improved (3) Acute kidney injury: ?Problem details: Presented with creatinine 2.45, baseline between 1-1.45. Most likely pre-renal. ?Status:?Acute ?Plan: -continue with IV fluid hydration. -hold ACEI, can restart as outpatient -monitor UOP. -daily BMP -Renal U/S negative -Avoid any nephrotoxic agents, including NSAIDs -Continue to monitor BP. Avoid drastic lowering of blood pressure in order to maintain a good renal perfusion -Dose all medications according pt's current eGFR -nephrology consulted by ED and rec IVF alone -Cr now downtrending -recheck labs in 1 week, lab slip sent (4) Diabetic foot ulcer: ?Status:?Acute ?Plan: -continue outpatient wound care -Regular dressing (5) Diabetes mellitus: ?Status:?Acute ?Plan: -Continue to monitor blood sugar. -Continue prior to admission Insulin and hold Metformine. -Continue diabetic diet with sliding scale insulins with NovoLog sliding scale. -Long-acting insulins? in appropriate dosing with Detemir. -hypoglycemia protocol as needed Hospital Course: Admitted for HTN urgency, NV and MICHAEL. Improved with IVF and chlorthalidone added for BP control. Cr downtrending. Will have labs checked in 1 week then can restart lisinopril if MICHAEL resolved. Exam Vital Signs (past 8 hours): - 10/04/22 04:00 10/04/22 02:00 10/04/22 02:30 Temperature 97.7 F Pulse Rate 65 73 77 Respiratory Rate 18 Blood Pressure 158/72 H Pulse Oximetry 94 Oxygen Flow Rate 0 10/04/22 03:00 10/04/22 03:30 10/04/22 03:36 Temperature Pulse Rate 75 75 Respiratory Rate Blood Pressure 152/76 H Pulse Oximetry Oxygen Flow Rate 10/04/22 03:36 10/04/22 04:00 10/04/22 04:30 Temperature Pulse Rate 73 76 75 Respiratory Rate Blood Pressure Pulse Oximetry 98 Oxygen Flow Rate 10/04/22 05:00 10/04/22 05:30 10/04/22 06:00 Temperature Pulse Rate 76 75 78 Respiratory Rate Blood Pressure Pulse Oximetry Oxygen Flow Rate 10/04/22 06:30 10/04/22 07:00 10/04/22 07:30 Temperature Pulse Rate 75 72 71 Respiratory Rate Blood Pressure Pulse Oximetry Oxygen Flow Rate 10/04/22 08:00 10/04/22 08:30 10/04/22 09:00 Temperature Pulse Rate 72 79 81 Respiratory Rate Blood Pressure Pulse Oximetry Oxygen Flow Rate Oxygen Delivery Method Room Air Oxygen Flow Rate 0 Objective Labs 10/04/22 03:39 10/04/22 03:39 Labs: Laboratory Results - last 24 hr 10/04/22 10/04/22 10/04/22 03:39 03:39 03:39 WBC 7.6 RBC 3.84 L Hgb 10.5 L Hct 30.8 L MCV 80.2 MCH 27.2 MCHC 34.0 RDW 13.9 Plt Count 270 Neut % (Auto) 66.5 Lymph % (Auto) 20.7 L [place] % (Auto) 8.6 Eos % (Auto) 3.4 Baso % (Auto) 0.8 Neut # (Auto) 5100 Lymph # (Auto) 1600 [place] # (Auto) 700 Eos # (Auto) 300 Baso # (Auto) 100 Sodium 134 L Potassium 3.7 Chloride 100 Carbon Dioxide 26 BUN 33 H Creatinine 1.72 H Estimated GFR 47 L BUN/Creatinine Ratio 19.2 Glucose 115 H Calcium 7.8 L Magnesium 1.8 [facility] Medical History (Updated 10/02/22 @ 06:34 by [place] MD) Congestive heart failure COVID Diabetes mellitus Hypertension Ulcer of left lower leg Ulcer of right leg Surgical History History of foot surgery Family History Father Myocardial infarction Mother Diabetes mellitus Brother Diabetes mellitus Social History household members: children Smoking Status: Former smoker alcohol intake: never Discharge Plan Discharge Plan Patient Disposition: Home Provider Discharge Comment: You were admitted with very high blood pressures and kidney injury from dehydration. I've changed your coreg to be twice daily (you were on only once daily and this is a twice daily med), and added a new pill called chlorthalidone. Your kidney function is improving. I would continue to hold your lisinopril until your kidney function returns to normal. Please get a blood test in 1 week and have your PCP f/u on it. Discharge orders & Medications Prescriptions: New chlorthalidone 25 mg tablet 25 mg PO DAILY Qty: 30 0RF Continued metformin 500 mg Tablet 750 mg PO BID amlodipine 10 mg Tablet 10 mg PO DAILY lisinopril 40 mg Tablet 40 mg PO QAM Toujeo SoloStar U-300 Insulin 300 unit/mL (1.5 mL) Insulin Pen 12 unit SUBCUT BID insulin lispro [Humalog KwikPen Insulin] 100 unit/mL insulin pen 12 - 15 unit SUBCUT TID Patient Comments: [NO ORIGINAL SIG] Changed carvedilol 25 mg Tablet 25 mg PO BIDWM Qty: 30 0RF Follow up/Referrals: Toño Ovalles MD [Primary Care Provider] - 2 Weeks Other Ambulatory Orders: Basic Metabolic Panel (Urgent) Timeframe: 3 Days Facility: [facility] - Location: Laboratory Ordered By: Kingsley Recio Visit Report/Discharge Packet Stand Alone Forms: Patient Portal/API, Stroke Signs & Symptoms Discharge Data Primary Care Provider: Toño Ovalles Discharges patient from system. Discharge Date/Time: 10/04/22 11:00 Quality VTE Deep Vein Thrombosis/Pulmonary Embolism Present on Admission: No
== END 2022-10-04 11:00 | disposition home or self-care (01) | DRG 641 ==
LOC: ED 06:40 → AC 08:01 → ICU 08:07
PROVIDERS: Internal Medicine; Admitting Provider Student in an Organized Health Care Education/Training Program; Emergency Provider Emergency Medicine; PCP Family Medicine; Referring Provider Emergency Medicine; Visit Provider Student in an Organized Health Care Education/Training Program
DX: E86.0 Dehydration (principal); N17.9 Acute kidney failure, unspecified; I10 Essential (primary) hypertension; E11.621 Type 2 diabetes mellitus with foot ulcer; L97.509 Non-pressure chronic ulcer of other part of unspecified foot with unspecified severity; I16.0 Hypertensive urgency; Z79.4 Long term (current) use of insulin; Z79.84 Long term (current) use of oral hypoglycemic drugs; Z87.891 Personal history of nicotine dependence
CPT/HCPCS: 36415; 51798; 74176; 76700; 80048; 80053; 80061; 81003; 81015; 82550; 82570; 82962; 83605; 83690; 83735; 83880; 84145; 84300; 84484; 85025; 87040; 87797; 93005; 96360; 96361; 99284; 99285; J1815; J3475

== ENCOUNTER 2022-10-10 17:19 | Emergency (ER) | payer OTHER, SELFPAY ==
[2022-10-02 12:27] VITALS: BMI 36.2
[2022-10-10] VITALS (10 sets, daily range): BP systolic 165–217; BP diastolic 31–108; PULSE 69–74; RESP 18; TEMP 36.4–37; O2SAT 97–100; BMI 36.2
[2022-10-10] MEDS: ONDANSETRON 4 MG/2 ML INJ IV (18:02)
[2022-10-10 18:27] LABS: Add Manual Diff / Slide Review NO; Basophils Absolute Auto 100 /uL (0-100); Basophils Percent Auto 0.8 % (0-2); Eosinophils Absolute Auto 100 /uL (0-450); Hematocrit 30.7 % (41-53); Hemoglobin 10.6 g/dL (13.5-17.5); Lymphocytes Absolute Auto 1600 /uL (1100-4500); Lymphocytes Percent Auto 22.7 % (25-40); Mean Corpuscular HGB Conc 34.7 % (30-36); Mean Corpuscular Hemoglobin 27.2 PG (26-34); Mean Corpuscular Volume 78.6 fL (80-100); Monocytes Absolute Auto 600 /uL (0-900); Monocytes Percent Auto 8.1 % (3-14); Neutrophils Absolute Auto 4800 /uL (1500-7000); Neutrophils Percent Auto 66.4 % (50-75); Platelet Count 314 X10^3/uL (150-400); Red Cell Distribution Width 13.8 % (11.6-14.8); White Blood Cell Count 7.2 X10^3/uL (4.5-11.0)
[2022-10-10 18:54] LABS: Alanine Aminotransferase 17 IU/L (<50); Albumin 3.4 g/dL (3.5-5.0); Albumin Globulin Ratio 0.9 (1.0-2.8); Alkaline Phosphatase 56 U/L (38-126); Aspartate Aminotransferase 24 IU/L (17-59); BUN Creatinine Ratio 24.1 (6-22); Bilirubin Total 0.7 mg/dL (0.2-1.3); Blood Urea Nitrogen 46 mg/dL (9-20); Calcium 8.8 mg/dL (8.4-10.2); Carbon Dioxide 26 mmol/L (22-32); Chloride 97 mmol/L (98-107); Estimated Glomerular Filt Rate 42 mL/min (>60); Globulin 3.8 g/dL (1.7-4.1); Glucose 150 mg/dL (70-100); HEMOLYSIS < 15 (0-50); Lipase 107 U/L (23-300); Potassium 3.5 mmol/L (3.4-5.1); Sodium 133 mmol/L (137-145); Total Protein 7.2 g/dL (6.3-8.2)
--- NOTE | 2022-10-10 22:19 | ED.NAVMDI ---
HPI - Nausea/Vomiting/Diarrhea General Chief complaint: Nausea/Vomiting/Diarrhea Stated complaint: n,v, fatigue Time Seen by Provider: 10/11/22 01:59 Source: patient Mode of arrival: Ambulatory History of Present Illness HPI Narrative: Patient 52-year-old male with diabetes gastroparesis frequent visits to the ED well known to myself in this facility presenting today with nausea vomiting and fatigue. He actually was admitted to the hospital a through the . Found to have acute kidney injury hypertensive urgency. Today he has been unable to take his blood pressure meds blood pressure is elevated feeling nauseous he is out of his Reglan and home nausea medications. He was having some abdominal cramping. He is now had 2 L of IV fluids and Reglan is overall feeling better. He denies any chest pain or palpitations. Related Data Home Medications Medication Instructions Recorded Confirmed amlodipine 10 mg tablet 10 mg PO DAILY 03/14/18 10/02/22 lisinopril 40 mg tablet 40 mg PO QAM 03/14/18 10/02/22 metformin 500 mg tablet 750 mg PO BID 03/14/18 10/02/22 insulin glargine U-300 conc 300 12 unit SUBCUT BID 03/13/22 10/02/22 unit/mL (1.5 mL) subcutaneous pen (Toujeo SoloStar U-300 Insulin) insulin lispro 100 unit/mL 12 - 15 unit SUBCUT TID 09/23/22 10/02/22 subcutaneous pen (Humalog KwikPen (U-100) Insulin) Previous Rx's Medication Instructions Recorded carvedilol 25 mg tablet 25 mg PO BIDWM #30 tabs 10/04/22 chlorthalidone 25 mg tablet 25 mg PO DAILY #30 tabs 10/04/22 metoclopramide HCl 10 mg tablet 10 mg PO Q6H PRN nausea and 10/11/22 (Reglan) vomiting #30 tabs Allergies Allergy/AdvReac Type Severity Reaction Status Date / Time No Known Drug Allergies Allergy Verified 09/23/22 10:44 Review of Systems Review of Systems ROS Unobtainable: All systems reviewed & are unremarkable except as noted in HPI and below Patient History Medical History Congestive heart failure COVID Diabetes mellitus Hypertension Ulcer of left lower leg Ulcer of right leg Surgical History History of foot surgery Family History Father Myocardial infarction Mother Diabetes mellitus Brother Diabetes mellitus Social History household members: children Smoking Status: Former smoker alcohol intake: never Smoking Status: Former smoker tobacco type: cigarettes alcohol intake frequency: other Substance Use Type: does not use Exam Initial Vital Signs Initial Vital Signs: Vital Signs Temperature 98.6 F 10/10/22 17:29 Pulse Rate 74 10/10/22 17:29 Respiratory Rate 18 10/10/22 17:29 Blood Pressure 168/96 H 10/10/22 17:29 Pulse Oximetry 100 10/10/22 17:29 Oxygen Delivery Method Room Air 10/10/22 17:29 GENERAL: Alert 52-year-old male and in no acute distress. HEENT: Head atraumatic,EOMI, pupils reactive, face symmetric, moist mucous membranes CARDIOVASCULAR: Regular rate and rhythm without murmurs, rubs or gallops. RESPIRATORY: Breath sounds equal bilaterally, no wheezes rales or rhonchi. ABDOMEN: Soft, nontender. Normoactive bowel sounds all 4 quadrants. No guarding or rebound. EXTREMITIES: Normal range of motion, no clubbing or edema. Neurovascularly intact NEUROLOGICAL: Alert and oriented x4. SKIN: Warm, dry, no laceration, no petechiae, no rashes or lesions. Course Orders Ordered: ED Orders 10/11/22 00:40 Urine Culture Stat Urine Microscopic Stat Discontinued Medications Amlodipine Besylate (Amlodipine 5 Mg Tablet) 10 mg PO NOW ONE Stop: 10/10/22 22:20 Last Admin: 10/10/22 22:54 Dose: 10 mg Documented By: Carvedilol (Carvedilol 12.5 Mg Tablet) 25 mg PO NOW ONE Stop: 10/10/22 22:20 Last Admin: 10/10/22 22:54 Dose: 25 mg Documented By: Sodium Chloride (Normal Saline 0.9%) 1,000 mls @ 1,000 mls/hr IV BOLUS ONE Stop: 10/10/22 23:18 Last Infusion: 10/10/22 23:13 Dose: 0 mls/hr Documented By: Admin: 10/10/22 22:24 Dose: 1,000 mls/hr Documented By: Sodium Chloride (Normal Saline 0.9%) 1,000 mls @ 1,000 mls/hr IV BOLUS ONE Stop: 10/10/22 23:50 Last Infusion: 10/11/22 00:21 Dose: 0 mls/hr Documented By: Admin: 10/10/22 23:15 Dose: 1,000 mls/hr Documented By: Metoclopramide HCl (Metoclopramide 10 Mg/2 Ml Inj) 10 mg IV NOW ONE Stop: 10/10/22 22:20 Last Admin: 10/10/22 22:24 Dose: 10 mg Documented By: Ondansetron HCl (Ondansetron 4 Mg Odt) 4 mg PO NOW PRN PRN Reason: Nausea And Vomiting Ondansetron HCl (Ondansetron 4 Mg/2 Ml Inj) 4 mg IV NOW PRN PRN Reason: Nausea And Vomiting Last Admin: 10/10/22 18:02 Dose: 4 mg Documented By: LETITIA Vital Signs Vital signs: Vital Signs - 8 hr 10/10/22 21:53 10/10/22 21:54 10/10/22 21:54 Pulse Rate 70 69 Respiratory Rate Blood Pressure 197/97 H Pulse Oximetry 99 98 10/10/22 22:00 10/10/22 22:00 10/10/22 22:30 Pulse Rate 69 69 Respiratory Rate Blood Pressure 194/96 H Pulse Oximetry 100 98 10/10/22 22:33 10/10/22 22:33 10/10/22 23:00 Pulse Rate 70 Respiratory Rate Blood Pressure 196/98 H 217/107 H Pulse Oximetry 98 10/10/22 23:00 10/10/22 23:30 10/10/22 23:43 Pulse Rate 71 69 72 Respiratory Rate Blood Pressure Pulse Oximetry 97 97 99 10/10/22 23:43 10/11/22 00:00 10/11/22 00:00 Pulse Rate 73 Respiratory Rate Blood Pressure 205/108 H 210/102 H Pulse Oximetry 97 10/11/22 00:30 10/11/22 00:30 10/11/22 00:46 Pulse Rate 71 76 Respiratory Rate Blood Pressure 177/89 H Pulse Oximetry 97 99 10/11/22 00:46 10/11/22 01:00 10/11/22 01:00 Pulse Rate 75 Respiratory Rate Blood Pressure 182/94 H 169/100 H Pulse Oximetry 98 10/11/22 01:30 10/11/22 01:30 10/11/22 02:00 Pulse Rate 70 Respiratory Rate Blood Pressure 152/86 H 158/90 H Pulse Oximetry 97 10/11/22 02:00 10/11/22 02:29 Pulse Rate 68 Respiratory Rate 18 Blood Pressure Pulse Oximetry 96 MDM - Nausea/Vomiting/Diarrhea Lab Data 10/10/22 17:50 10/10/22 17:50 Labs: Lab Results 10/10/22 10/10/22 10/11/22 Range/Units 17:50 17:50 00:40 WBC 7.2 (4.5-11.0) X10^3/uL RBC 3.90 L (4.5-5.9) X10^6/uL Hgb 10.6 L (13.5-17.5) g/dL Hct 30.7 L (41-53) % MCV 78.6 L (80-100) fL MCH 27.2 (26-34) PG MCHC 34.7 (30-36) % RDW 13.8 (11.6-14.8) % Plt Count 314 (150-400) X10^3/uL Neut % (Auto) 66.4 (50-75) % Lymph % (Auto) 22.7 L (25-40) % [place] % (Auto) 8.1 (3-14) % Eos % (Auto) 2.0 (2-4) % Baso % (Auto) 0.8 (0-2) % Neut # (Auto) 4800 (0635-0065) /uL Lymph # (Auto) 1600 (7099-4640) /uL [place] # (Auto) 600 (0-900) /uL Eos # (Auto) 100 (0-450) /uL Baso # (Auto) 100 (0-100) /uL Sodium 133 L (137-145) mmol/L Potassium 3.5 (3.4-5.1) mmol/L Chloride 97 L (98-107) mmol/L Carbon Dioxide 26 (22-32) mmol/L BUN 46 H (9-20) mg/dL Creatinine 1.91 H (0.66-1.25) mg/dL Estimated GFR 42 L (>60) mL/min BUN/Creatinine Ratio 24.1 H (6-22) Glucose 150 H (70-100) mg/dL Calcium 8.8 (8.4-10.2) mg/dL Total Bilirubin 0.7 (0.2-1.3) mg/dL AST 24 (17-59) IU/L ALT 17 (<50) IU/L Alkaline Phosphatase 56 (38-126) U/L Total Protein 7.2 (6.3-8.2) g/dL Albumin 3.4 L (3.5-5.0) g/dL Globulin 3.8 (1.7-4.1) g/dL Albumin/Globulin Ratio 0.9 L (1.0-2.8) Lipase 107 (23-300) U/L Urine RBC 30-100/hpf H (0-5/HPF) Urine WBC 0-1/hpf (0-5/HPF) Ur Squamous Epith Cells 1-5 /hpf (0-5/HPF) Ur Transition Epith Cell 1-5/hpf (0-5/HPF) Amorphous Sediment 1+ Urine Bacteria Few (2-10) H (None) Hyaline Casts 0-1/lpf (None) Urine Dip Bedside Urine Glucose Negative Bedside Urine Bilirubin - Negative Bedside Urine Ketone - Negative Urine Specific [place] 1.010 Bedside Urine Occult Blood +++ Bedside Urine pH 6.0 Bedside Urine Protein + 30 Bedside Urine Urobilinogen - Negative Bedside Urine Nitrite - Negative Bedside Urine Leukocytes - Negative Esterase ECG Data Interpretation: Sinus rhythm rate 68 OR 182 QRS [address] changes no T-wave inversions similar to previous MDM Narrative Medical decision making narrative: Patient 52-year-old male with diabetes gastroparesis frequent nausea vomiting frequent visits to the ED presents today with the same. He was discharged from the hospital last week he has now run out of his anti nausea medications unable to take blood pressure meds. He responded very well to IV fluids and Reglan. He was given his regular blood pressure medications which have helped. Is abdomen is soft nontender see no need for imaging at this time. Blood work has been reviewed and is stable. Kidney function slightly increased from when he was discharged. No evidence of DKA. He would a creatinine 1.72 and he was discharged today is 1.9. At this time no need for any sort of readmission. Discharge Plan Departure Patient Disposition: Home Clinical Impression: Diabetic gastroparesis Instructions: Gastroparesis Activity Restrictions/Additional Instructions: *You have been diagnosed with gastroparesis *What to do: At this time increase fluids as tolerated please see a specialist please take your blood pressure meds as directed *Continue to take medications as directed Reglan 10 mg every 6 hours needed for nausea above *Follow up with your primary care provider in 2-3 days or call [phone] *Return to ER if you should have persistent vomiting chest pain or any new, worsening or concerning symptoms Prescriptions: New metoclopramide HCl [Reglan] 10 mg tablet 10 mg PO Q6H PRN (Reason: nausea and vomiting) Qty: 30 0RF No Action metformin 500 mg Tablet 750 mg PO BID amlodipine 10 mg Tablet 10 mg PO DAILY lisinopril 40 mg Tablet 40 mg PO QAM carvedilol 25 mg Tablet 25 mg PO BIDWM Qty: 30 0RF chlorthalidone 25 mg tablet 25 mg PO DAILY Qty: 30 0RF Toujeo SoloStar U-300 Insulin 300 unit/mL (1.5 mL) Insulin Pen 12 unit SUBCUT BID insulin lispro [Humalog KwikPen Insulin] 100 unit/mL insulin pen 12 - 15 unit SUBCUT TID Patient Comments: [NO ORIGINAL SIG] Referrals: Toño Ovalles MD [Primary Care Provider] - Stand Alone Forms: Patient Portal/API
[2022-10-10] MEDS: SODIUM CHLORIDE 0.9% 1,000 ML 1000 ML IV ×2 (22:24→23:15)
[2022-10-10] MEDS: METOCLOPRAMIDE 10 MG/2 ML INJ IV (22:24)
[2022-10-10] MEDS: AMLODIPINE 5 MG TABLET 10 MG PO (22:54)
[2022-10-10] MEDS: carvediloL 12.5 MG TABLET 25 MG PO (22:54)
[2022-10-11] VITALS (7 sets, daily range): BP systolic 152–210; BP diastolic 86–102; PULSE 68–76; RESP 18; O2SAT 96–99
[2022-10-11 01:06] LABS: RBC Urine 30-100/HPF (0-5/HPF)
[2022-10-11 01:07] LABS: Bacteria Urine Few (2-10); Hyaline Casts Urine 0-1/LPF; Squamous Epithelial Cell Urine 1-5 /HPF (0-5/HPF); Transitional Epi Cells Urine 1-5/HPF (0-5/HPF); WBC Urine 0-1/HPF (0-5/HPF)
[2022-10-11 01:09] LABS: Amorphous Sediment Urine 1+
== END 2022-10-11 02:33 | disposition home or self-care (01) ==
PROVIDERS: Emergency Medicine; Emergency Provider Emergency Medicine; PCP Family Medicine
DX: E11.43 Type 2 diabetes mellitus with diabetic autonomic (poly)neuropathy (principal); R10.9 Unspecified abdominal pain
CPT/HCPCS: 36415; 80053; 81003; 81015; 83690; 85025; 87086; 93005; 93010; 96361; 96374; 96375; 99284; J2405; J2765

== ENCOUNTER 2023-07-04 09:16 | Observation (INO) | payer OTHER, SELFPAY ==
[2022-10-02 12:27] VITALS: BMI 36.2
[2023-07-04] VITALS (26 sets, daily range): BP systolic 152–177; BP diastolic 83–98; PULSE 68–84; RESP 15–20; TEMP 36.4–36.8; O2SAT 77–100; BMI 43.0; BMI 41.8
--- NOTE | 2023-07-04 | PATH_ITS ---
[facility] Accession Number: [id number] No. of containers..01 Tissue . 01 Material submitted: . toe - L 4TH TOE . 01 Diagnosis: LEFT FOURTH TOE, AMPUTATION: Toe with deep ulcer and remodeling bone with osteomyelitis. No evidence of neoplasm. Histologically viable margins of resection. MRV 07/09/2023 1520 Local . 01 Electronically signed: . Kingsley Felton MD, PhD, Pathologist NPI- [id number] . 01 Gross description: . The specimen is received in formalin labeled with two patient identifiers and left fourth toe, is a 6.8 x 1.8 x 1.8 cm distal aspect of toe. The skin surface has a 2.8 x 2.0 x 0.3 cm dorsal aspect ulceration with a marked amount of surrounding skin slippage. This ulceration is further located 0.3 cm from the dorsal soft tissue resection margin. The remaining surrounding skin is slightly edematous with a moderate amount of skin slippage. There is a 1.1 x 1.0 x 0.2 cm slightly hyperkeratotic toenail. There is approximately 2.8 cm in length of circumferential skeletonization of the proximal phalangeal bone. The phalangeal bone resection margin is smooth, glistening and consistent with articular surface, and is inked green. The soft tissue resection margin is inked blue. Animal Ecologist sections are submitted as follows: A1: Shave margin of articular bone resection margin. A2: Complete mid cross-section of ulcer to include underlying bone. A3: Circumferential shave margin of skin and soft tissue at resection margin. Cassettes A1 and A2 are submitted for decalcification. ([id number]) /TONY 07/05/2023 1053 Local . 01 Pathologist provided ICD-10: M86.672 . 01 CPT . 231584, [id number] Specimen Comment: A courtesy copy of this report has been sent to [phone] Performed at: [address] [id number] MD Nemesio Regalado MD Phone: [phone]
--- NOTE | 2023-07-04 09:30 | ED_ITS ---
HPI - General Adult General Chief complaint: Extremity Injury, Lower Stated complaint: ULCER ON TOE INFECTED LT FOOT Time Seen by Provider: 07/04/23 09:29 Source: patient Mode of arrival: Ambulatory Limitations: no limitations History of Present Illness HPI narrative: Patient is a 53-year-old male. Is a known insulin-dependent diabetic also with high blood pressure and obesity. Has chronic lower extremity ulcerations for which he seems wound care every Sunday. He states that today as he was changing the wound he noticed that his left 4th toe was macerated and discolored and is painful to the touch. He has not currently on antibiotics. He is having some subjective fevers. He was taking all his medications as directed. Related Data Home Medications Medication Instructions Recorded Confirmed amlodipine 10 mg tablet 10 mg PO DAILY 03/14/18 10/02/22 lisinopril 40 mg tablet 40 mg PO QAM 03/14/18 10/02/22 metformin 500 mg tablet 750 mg PO BID 03/14/18 10/02/22 insulin glargine U-300 conc 300 12 unit SUBCUT BID 03/13/22 10/02/22 unit/mL (1.5 mL) subcutaneous pen (Toujeo SoloStar U-300 Insulin) insulin lispro 100 unit/mL 12 - 15 unit SUBCUT TID 09/23/22 10/02/22 subcutaneous pen (Humalog KwikPen (U-100) Insulin) Previous Rx's Medication Instructions Recorded carvedilol 25 mg tablet 25 mg PO BIDWM #30 tabs 10/04/22 chlorthalidone 25 mg tablet 25 mg PO DAILY #30 tabs 10/04/22 metoclopramide HCl 10 mg tablet 10 mg PO Q6H PRN nausea and 10/11/22 (Reglan) vomiting #30 tabs Allergies Allergy/AdvReac Type Severity Reaction Status Date / Time No Known Drug Allergies Allergy Verified 07/04/23 09:31 Review of Systems Constitutional Constitutional: Reports system reviewed and no additional complaints, except as documented Musculoskeletal Musculoskeletal: Reports system reviewed and no additional complaints, except as documented Integumentary/Breasts Skin/Breast: Reports system reviewed and no additional complaints, except as documented Neurologic Neurologic: Reports system reviewed and no additional complaints, except as documented Patient History Medical History COVID Hypertension Ulcer of right leg Congestive heart failure Diabetes mellitus Ulcer of left lower leg Surgical History History of foot surgery Family History Father Myocardial infarction Mother Diabetes mellitus Brother Diabetes mellitus Social History household members: children Smoking Status: Former smoker alcohol intake: never Smoking Status: Former smoker tobacco type: cigarettes alcohol intake frequency: other Substance Use Type: does not use Exam Initial Vital Signs Initial Vital Signs: Vital Signs Pulse Rate 84 07/04/23 09:22 Pulse Oximetry 98 07/04/23 09:22 Const General: cooperative Cardio Pulses: dorsalis pedis present on the left Skin Other: Patient has chronic venous stasis changes to his left lower extremity. His left 4th toe has an ulceration. Does appear to be some purulent drainage. It does not necrotic appearing. Neuro Sensory Exam: no sensory deficits noted Course Orders Ordered: ED Orders 07/04/23 09:28 Wound Culture and Gram Stain Stat 07/04/23 09:33 XR foot LT min 3V Stat 07/04/23 09:47 Basic Metabolic Panel Stat C-Reactive Protein Quant Stat Complete Blood Count AUTO DIFF Stat Erythrocyte Sedimentation Rate Stat 07/04/23 10:58 Consult to Orthopedic Surgery Stat Vital Signs Vital signs: Vital Signs - 8 hr 07/04/23 09:22 07/04/23 09:23 07/04/23 09:23 Temperature Pulse Rate 84 82 Respiratory Rate Blood Pressure 161/94 H Pulse Oximetry 98 97 Oxygen Delivery Method 07/04/23 09:30 07/04/23 09:31 07/04/23 10:00 Temperature 98.2 F Pulse Rate 76 79 71 Respiratory Rate 20 Blood Pressure 161/94 H Pulse Oximetry 98 97 96 Oxygen Delivery Method Room Air Room Air 07/04/23 10:30 07/04/23 11:00 Temperature Pulse Rate 69 70 Respiratory Rate Blood Pressure Pulse Oximetry 94 98 Oxygen Delivery Method Room Air Room Air Medical Decision Making Medical Records Medical records reviewed: Yes I reviewed the patient's medical records. Lab Data Lab results reviewed: Yes I reviewed the patient's lab results. 07/04/23 09:47 07/04/23 09:47 Labs: Lab Results 07/04/23 Range/Units 09:47 WBC 10.7 (4.5-11.0) X10^3/uL RBC 3.78 L (4.5-5.9) X10^6/uL Hgb 10.6 L (13.5-17.5) g/dL Hct 31.0 L (41-53) % MCV 81.9 (80-100) fL MCH 28.1 (26-34) PG MCHC 34.4 (30-36) % RDW 13.6 (11.6-14.8) % Plt Count 246 (150-400) X10^3/uL Neut % (Auto) 74.1 (50-75) % Lymph % (Auto) 16.7 L (25-40) % [place] % (Auto) 6.3 (3-14) % Eos % (Auto) 2.3 (2-4) % Baso % (Auto) 0.6 (0-2) % Neut # (Auto) 7900 H (1626-6749) /uL Lymph # (Auto) 1800 (8428-5457) /uL [place] # (Auto) 700 (0-900) /uL Eos # (Auto) 200 (0-450) /uL Baso # (Auto) 100 (0-100) /uL ESR 88 H (0-15) MM/HR Sodium 135 L (137-145) mmol/L Potassium 4.0 (3.4-5.1) mmol/L Chloride 102 (98-107) mmol/L Carbon Dioxide 28 (22-32) mmol/L BUN 24 H (9-20) mg/dL Creatinine 1.85 H (0.66-1.25) mg/dL Estimated GFR 43 L (>60) mL/min BUN/Creatinine Ratio 13.0 (6-22) Glucose 360 H (70-100) mg/dL Calcium 8.2 L (8.4-10.2) mg/dL C-Reactive Protein 6.0 H (<1.0) mg/dL Imaging Data Extremity x-ray #1: Radiologist's Impression: PROCEDURE: XR FOOT LT MIN 3V INDICATIONS: L 4th toe infection TECHNIQUE: 3 views of the foot were acquired. COMPARISON: [facility], NATALIE, XR FOOT LT MIN 3V, 02/02/2020, 23:04. [facility], CR, XR FOOT RT MIN 3V, 04/06/2020, 20:57. FINDINGS: Bones: Stable postsurgical changes and chronic osseous changes of the left 5th ray. No acute fracture seen. Suggestion of osseous lucency and likely erosion involving the lateral cortex of the left 4th toe middle phalanx. No other suspicious bony lesions. Soft tissues: No tibiotalar joint effusion. Achilles tendon appears normal. Soft tissue swelling of the left distal forefoot. IMPRESSION: Osseous lucency and likely cortical erosion involving the lateral cortex of the left 4th toe middle phalanx with overlying soft tissue swelling suggestive of osteomyelitis. MDM Narrative Medical decision making narrative: Patient is nontoxic appearing. Was seen by Orthopedic surgery here in the emergency department. Orthopedic surgery have discussions with the patient regarding options in the plan will be to admit to the hospital for a amputation a culture was obtained. No antibiotics were administered in the ER. Orthopedic surgery stated that they would start antibiotics upon admission. Discharge Plan Departure Patient Disposition: Admitted to Surgery Clinical Impression: Osteomyelitis, Diabetes, Infection of toe Admit Date/Time: 07/04/23 11:23 Admit Provider: Sally Aaron
--- NOTE | 2023-07-04 09:33 | DI.RAD.S_ITS ---
PROCEDURE: XR FOOT LT MIN 3V INDICATIONS: L 4th toe infection TECHNIQUE: 3 views of the foot were acquired. COMPARISON: [facility], CR, XR FOOT LT MIN 3V, 02/02/2020, 23:04. [facility], CR, XR FOOT RT MIN 3V, 04/06/2020, 20:57. FINDINGS: Bones: Stable postsurgical changes and chronic osseous changes of the left 5th ray. No acute fracture seen. Suggestion of osseous lucency and likely erosion involving the lateral cortex of the left 4th toe middle phalanx. No other suspicious bony lesions. Soft tissues: No tibiotalar joint effusion. Achilles tendon appears normal. Soft tissue swelling of the left distal forefoot. IMPRESSION: Osseous lucency and likely cortical erosion involving the lateral cortex of the left 4th toe middle phalanx with overlying soft tissue swelling suggestive of osteomyelitis. Dictated by: Ric Prasad M.D. on 07/04/2023 at 10:29 Approved by: Ric Prasad M.D. on 07/04/2023 at 10:45
[2023-07-04 10:00] LABS: Add Manual Diff / Slide Review NO; Basophils Absolute Auto 100 /uL (0-100); Basophils Percent Auto 0.6 % (0-2); Eosinophils Absolute Auto 200 /uL (0-450); Eosinophils Percent Auto 2.3 % (2-4); Hemoglobin 10.6 g/dL (13.5-17.5); Lymphocytes Absolute Auto 1800 /uL (1100-4500); Lymphocytes Percent Auto 16.7 % (25-40); Mean Corpuscular HGB Conc 34.4 % (30-36); Mean Corpuscular Hemoglobin 28.1 PG (26-34); Mean Corpuscular Volume 81.9 fL (80-100); Monocytes Absolute Auto 700 /uL (0-900); Monocytes Percent Auto 6.3 % (3-14); Neutrophils Absolute Auto 7900 /uL (1500-7000); Neutrophils Percent Auto 74.1 % (50-75); Platelet Count 246 X10^3/uL (150-400); Red Blood Cell Count 3.78 X10^6/uL (4.5-5.9); Red Cell Distribution Width 13.6 % (11.6-14.8); White Blood Cell Count 10.7 X10^3/uL (4.5-11.0)
[2023-07-04 10:19] LABS: Erythrocyte Sedimentation Rate 88 MM/HR (0-15)
[2023-07-04 10:27] LABS: Blood Urea Nitrogen 24 mg/dL (9-20); Calcium 8.2 mg/dL (8.4-10.2); Carbon Dioxide 28 mmol/L (22-32); Chloride 102 mmol/L (98-107); Estimated Glomerular Filt Rate 43 mL/min (>60); Glucose 360 mg/dL (70-100); HEMOLYSIS < 15 (0-50); Sodium 135 mmol/L (137-145)
--- NOTE | 2023-07-04 10:55 | P.HP_ITS ---
History of Present Illness History of Present Illness Date Patient Seen: 07/04/23 Time Patient Seen: 10:56 Date of Onset of Symptoms: 07/03/23 Chief complaint: ULCER ON TOE INFECTED LT FOOT Narrative: Mr. Mari is a 53-year-old uncontrolled type 2 diabetic. His primary care management is at [facility] he also sees wound care at [facility] and podiatry they are weekly for wound care on multiple bilateral foot ulcerations. He has a remote history of a partial 5th metatarsal excision. He notes new maceration erythema and drainage on his left 4th toe. Previously this was a small wound that was being cared for in wound care. Yesterday's appearance and today's appearance was exceedingly much worse. He denies any fevers or chills. He presents to [facility] concerned about the worsening appearance of his left 4th toe. He has been hospitalized or had ER visits multiple times in the past for diabetic complications. He has had previous vascular interrogation at the [facility] system of his lower extremity arterial system. [facility] Medical History COVID Hypertension Ulcer of right leg Congestive heart failure Diabetes mellitus Ulcer of left lower leg Surgical History History of foot surgery Family History Father Myocardial infarction Mother Diabetes mellitus Brother Diabetes mellitus Social History household members: children Smoking Status: Former smoker alcohol intake: never Meds Home Medications and Allergies Home Medications Medication Instructions Recorded Confirmed Type amlodipine 10 mg tablet 10 mg PO DAILY 03/14/18 10/02/22 History lisinopril 40 mg tablet 40 mg PO QAM 03/14/18 10/02/22 History metformin 500 mg tablet 750 mg PO BID 03/14/18 10/02/22 History insulin glargine U-300 conc 300 12 unit SUBCUT BID 03/13/22 10/02/22 History unit/mL (1.5 mL) subcutaneous pen (Touinezo SoloStar U-300 Insulin) insulin lispro 100 unit/mL 12 - 15 unit SUBCUT TID 09/23/22 10/02/22 History subcutaneous pen (Humalog KwikPen (U-100) Insulin) carvedilol 25 mg tablet 25 mg PO BIDWM #30 tabs 10/04/22 10/02/22 Rx chlorthalidone 25 mg tablet 25 mg PO DAILY #30 tabs 10/04/22 Rx metoclopramide HCl 10 mg tablet 10 mg PO Q6H PRN nausea and 10/11/22 Rx (Reglan) vomiting #30 tabs Allergies Allergy/AdvReac Type Severity Reaction Status Date / Time No Known Drug Allergies Allergy Verified 07/04/23 09:31 Review of Systems Review of Systems Narrative: Uncontrolled diabetes. No chills, no fevers. No nausea or vomiting. ROS: Yes All systems reviewed with the patient and are negative except as otherwise documented Exam Vital Signs (past 8 hours): - 07/04/23 09:22 07/04/23 09:23 07/04/23 09:23 Temperature Pulse Rate 84 82 Respiratory Rate Blood Pressure 161/94 H Pulse Oximetry 98 97 Oxygen Delivery Method 07/04/23 09:30 07/04/23 09:31 07/04/23 10:00 Temperature 98.2 F Pulse Rate 76 79 71 Respiratory Rate 20 Blood Pressure 161/94 H Pulse Oximetry 98 97 96 Oxygen Delivery Method Room Air Room Air 07/04/23 10:30 Temperature Pulse Rate 69 Respiratory Rate Blood Pressure Pulse Oximetry 94 Oxygen Delivery Method Room Air Oxygen Delivery Method Room Air Narrative Exam Narrative: Alert oriented man no acute distress. Lying in bed in the emergency room. Head normocephalic atraumatic. Lungs clear to auscultation. Heart regular rate and rhythm. Right foot is bandaged. Left foot demonstrates a floating 5th toe status post partial 5th metatarsal excision. Fourth toe is swollen with macerated open wounds dorsally exposed tendon and gross purulence. No ascending cellulitis beyond the level of the toe. There is a purplish hue to the plantar toe surface. And full-thickness wounds. Calf is soft. Chronic venous stasis changes. Grossly brisk capillary refill. Const General: cooperative Neuro General: patient alert and patient awake Objective Imaging Left foot x-ray: My impression: Left foot x-rays three views nonweightbearing demonstrate previous surgical change to 5th metatarsal head. Fourth toe demonstrates osseous lucency at middle phalanx consistent with osteomyelitis. Radiologist's impression: ?? PATIENT?NAME:??HARSHA,?TELMA?Namita:??1970 ?#:???[id number] ORD.?:??ANA ROSA?SANKET?LillianaCC:? MODALITY:?CRPATIENT?TYPE:?ER CONTRAST?MEDIA:??STATION?ID:?[id number] FLUORO?TIME:? PROCEDURE:??XR?FOOT?LT?MIN?3V INDICATIONS:??L?4th?toe?infection TECHNIQUE:??3?views?of?the?foot?were?acquired.?? COMPARISON:? [facility],?CR,?XR?FOOT?LT?MIN?3V,?02/02/2020,?23:04.[facility],?CR ,?XR?FOOT?RT?MIN?3V,?04/06/2020,?20:57. FINDINGS:?? Bones:? ?Stable?postsurgical?changes?and?chronic?osseous?changes?of?the?left?5th?ray.??N o?acute?fracture?see n.??Suggestion?of?osseous?lucency?and?likely?erosion?involving?the?lateral?deanna x?of?the?left?4th?toe?middle?phalanx.??No?other?suspicious?bony?lesions.?? Soft?tissues:? ?No?tibiotalar?joint?effusion.??Achilles?tendon?appears?normal.??Soft?tissue?swe lling?of?the?left?distal?forefoot. IMPRESSION:? ? O sseous?lucency?and?likely?cortical?erosion?involving?the?lateral?cortex?of?the?l eft?4th?toe?middle?p halanx?with?overlying?soft?tissue?swelling?suggestive?of?osteomyelitis. Dictated?by:?Ric?Shanice,?M.D.?on?07/04/2023?at?10:29??? Labs 07/04/23 09:47 07/04/23 09:47 Labs: Laboratory Results - last 24 hr 07/04/23 09:47 WBC 10.7 RBC 3.78 L Hgb 10.6 L Hct 31.0 L MCV 81.9 MCH 28.1 MCHC 34.4 RDW 13.6 Plt Count 246 Neut % (Auto) 74.1 Lymph % (Auto) 16.7 L [place] % (Auto) 6.3 Eos % (Auto) 2.3 Baso % (Auto) 0.6 Neut # (Auto) 7900 H Lymph # (Auto) 1800 [place] # (Auto) 700 Eos # (Auto) 200 Baso # (Auto) 100 ESR 88 H Sodium 135 L Potassium 4.0 Chloride 102 Carbon Dioxide 28 BUN 24 H Creatinine 1.85 H Estimated GFR 43 L BUN/Creatinine Ratio 13.0 Glucose 360 H Calcium 8.2 L Assessment & Plan Assessment and plan (1) Infection of toe: Status: Acute (2) Diabetes: Problem details: Type 2 Qualifiers: Diabetes mellitus type: type 2 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 Necrotic tissue. With the wound and exposed tendon and osteomyelitis on x-ray. Based on the appearance of the wound drastic worsening and location I suspect poor healing potential and need for amputation. 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 He is currently NPO. He has a acute worsening great toe infection and osteomyelitis. With significant soft tissue loss. I have recommended amputation. We discussed the risks for ongoing wound healing problems potential need for additional surgery or antibiotics. Patient elects to proceed with amputation today. He will be able to go home and ambulate flatfoot in a postoperative shoe after the amputation. Sutures should remain in place a minimum of 3 weeks. The risks and benefits of the procedure have been discussed with the patient and given the opportunity to ask questions. The risks of surgery include but are not limited to infection, malunion, nonunion, persistence of pain, damage to nerves and blood vessels, posttraumatic arthritis, DVT, PE, coardiopulmonary complications and . The patient expressed a thorough understanding of the risks and benefits of surgery and has elected to proceed. Consent was signed. Decision for surgery, toe amputation. Emergency room consultation. Time Spent With Patient Time with patient: less than 30 minutes
--- NOTE | 2023-07-04 11:54 | PC.NURSE ---
Pt oxygen saturation dropped to low 80's while sleeping. Pt woken and told to take deep breathes. Oxygen immediately increased to 99% RA. Pt placed on 2L NC while resting. Denies history of sleep apnea. Informed of risks and to follow up.
--- NOTE | 2023-07-04 13:31 | PC.NURSE ---
Pt O2 saturation 77% 2L NC while asleep. Pt easily responsive to his name and took a few deep breathes. O2 came up to 98%. Pt oriented, GCS 14.
[2023-07-04] MEDS: LACTATED RINGERS 1,000 ML 42 ML IV (14:26)
--- NOTE | 2023-07-04 15:05 | SUR.HOLD ---
Notified Dr Marie, anesthesiology, of blood sugar readings greater than 300; no orders for insulin given.
[2023-07-04] MEDS: CEFAZOLIN 2 GM/100 ML PREMIX 100 ML IV (15:38)
--- NOTE | 2023-07-04 15:50 | SUR.OPER ---
Supine on padded OR bed, head on pillow, arms secured on padded arm boards at <90 degrees abduction, legs uncrossed. non op leg taped and secured to bed. operative leg resting on stack of blankets and draped free
[2023-07-04] MEDS: BUPIVACAINE 0.25% (PF) 30 ML, EPINEPHrine 0.15 MG INJ (15:57)
--- NOTE | 2023-07-04 16:33 | P.OP_ITS ---
Operative Date/Time/Diagnoses Date of procedure: 07/04/23 Time of procedure: 15:45 Pre-op diagnosis: Left diabetic 4th toe infection, osteomyelitis 4th toe Post-op diagnosis: same Procedure & Clinicians Procedure: CPT code [id number] T3-- Amputation left 4th toe through MTP joint Same procedure as scheduled: Yes Indications: The patient is 53-year-old male with uncontrolled diabetes type 2. He has a history of multiple lower extremity ulcerations. He typically gets wound care at the [facility] and works with the podiatry team there. He endorses 1 day of worsening wound erythema and drainage of his left great toe and presented to the emergency room at [facility] where he is presented to intermittently for diabetic complications. He was found to have open wound drainage and full-thickness ulcerations and cellulitis over his right 4th toe as well as mottling of the distal toe and evolving necrosis consistent with osteomyelitis. As well as consistent with osteomyelitis on x-ray. He was indicated for toe amputation. The risks and benefits of the procedure have been discussed with the patient and given the opportunity to ask questions. The risks of surgery include but are not limited to infection, need for additional surgery, persistence of pain, damage to nerves and blood vessels, need for more proximal amputation, prolonged antibiotics, DVT, PE, cardiopulmonary complications and . The patient expressed a thorough understanding of the risks and benefits of surgery and has elected to proceed. Consent was signed. Surgeon: Sally Aaron Click Yes if Unassisted: Yes Anesthesia Type: MAC +/- and Local Operative Notes Findings: Necrosis left 4th toe with dorsal soft tissue maceration full-thickness ulcers exposed extensor tendon and mottling of the distal toe. No cellulitis extending past the MTP joint. Purulent drainage palpable dorsalis pedis pulse Closure Type: primary Specimen(s): other (Toe sent for pathology. Culture sent to microbiology.) Estimated Blood Loss (mL): 0 Blood products transfused: none Tourniquet time (min): 0 Procedure in detail: Patient was seen in the preoperative area the site of surgery was marked informed consent confirmed. The patient was brought back to the operating room by the anesthesia team positioned supine on operative table. Bony prominences were well padded. The left lower extremity was prepped and draped in a standard sterile fashion a formal time-out procedure was performed confirming the patient's side and site of surgery administration of appropriate preoperative antibiotic. All were in agreement. Attention was turned to the left great toe. No tourniquet was utilized. The necrotic and infected toe was demonstrated. A digital block was placed with 0.25% Marcaine and epinephrine around the area to minimize additional anesthesia required. A racquet type incision was drawn out over the toe and incision was made down through the skin subcutaneous tissue and a full-thickness decisive fashion. The 4th toe was amputated through the MTP joint with a disarticulation. Dorsal extensor tendons plantar flexor tendons were cut. Neurovascular bundles were cut isolating allowed to retract. And the toe was removed and sent for pathology. There was purulence noted on incision tracking along the proximal phalanx. No purulence noted at the MTP joint. The wound was then thoroughly irrigated. Gloves were changed. Deep tissues were closed with 2-0 PDS and the skin with 3-0 and 4-0 nylon suture. A dressing was placed with Xeroform gauze Adan wrap and Evert wrap. The patient was woken from anesthetic and taken to recovery room in good condition there were no immediate complications with the procedure. Counts were correct. Complications: none Post-operative Condition: stable Disposition: PACU Plan for aftercare: Weightbear as tolerated in the postoperative shoe or heel weight-bearing. Keep incision site dry. May change dressing as needed. Stitches will stay in place a minimum of 3 weeks. A follow up in 3 weeks for suture removal at [facility] orth[facility]ics. Should continue his wound care for his other lower extremity wounds with [facility]. One week prescription for Bactrim was provided. We will follow intraoperative cultures.
== END 2023-07-04 16:58 | disposition home or self-care (01) ==
LOC: ED 11:04 → AC 11:25
PROVIDERS: Admitting Provider Orthopaedic Surgery Foot and Ankle Surgery; Emergency Provider Emergency Medicine; PCP Family Medicine; Referring Provider Emergency Medicine; Visit Provider Orthopaedic Surgery Foot and Ankle Surgery
PROC: (CPT 28820; principal; 2023-07-04 15:00)
DX: E11.621 Type 2 diabetes mellitus with foot ulcer (principal); L97.524 Non-pressure chronic ulcer of other part of left foot with necrosis of bone; E11.69 Type 2 diabetes mellitus with other specified complication; M86.9 Osteomyelitis, unspecified; Z79.84 Long term (current) use of oral hypoglycemic drugs; Z79.4 Long term (current) use of insulin
CPT/HCPCS: 28820; 36415; 73630; 80048; 82962; 85025; 85651; 86140; 87070; 87075; 87077; 87147; 87186; 87205; 99284; 99285; G0378; J0171; J0690; J2250; J3010

== ENCOUNTER 2023-07-30 13:09 | Emergency (ER) | payer OTHER, SELFPAY ==
[2022-10-02 12:27] VITALS: BMI 36.2
[2023-07-30 13:45] VITALS: BP 188/118; PULSE 95; RESP 18; TEMP 36.3; O2SAT 97; BMI 41.8
[2023-07-30 14:49] LABS: Add Manual Diff / Slide Review NO; Basophils Absolute Auto 0 /uL (0-100); Basophils Percent Auto 0.4 % (0-2); Eosinophils Absolute Auto 0 /uL (0-450); Eosinophils Percent Auto 0.3 % (2-4); Hematocrit 36.9 % (41-53); Hemoglobin 12.5 g/dL (13.5-17.5); Lymphocytes Absolute Auto 900 /uL (1100-4500); Lymphocytes Percent Auto 17.2 % (25-40); Mean Corpuscular HGB Conc 33.9 % (30-36); Mean Corpuscular Hemoglobin 27.9 PG (26-34); Mean Corpuscular Volume 82.3 fL (80-100); Monocytes Absolute Auto 600 /uL (0-900); Monocytes Percent Auto 10.7 % (3-14); Neutrophils Absolute Auto 3900 /uL (1500-7000); Neutrophils Percent Auto 71.4 % (50-75); Platelet Count 246 X10^3/uL (150-400); Red Blood Cell Count 4.48 X10^6/uL (4.5-5.9); Red Cell Distribution Width 13.7 % (11.6-14.8); White Blood Cell Count 5.4 X10^3/uL (4.5-11.0)
[2023-07-30 14:56] LABS: Alanine Aminotransferase 36 IU/L (<50); Albumin 3.8 g/dL (3.5-5.0); Albumin Globulin Ratio 0.9 (1.0-2.8); Alkaline Phosphatase 67 U/L (38-126); Aspartate Aminotransferase 58 IU/L (17-59); BUN Creatinine Ratio 14.3 (6-22); Bilirubin Total 0.8 mg/dL (0.2-1.3); Blood Urea Nitrogen 30 mg/dL (9-20); Calcium 8.3 mg/dL (8.4-10.2); Carbon Dioxide 24 mmol/L (22-32); Chloride 104 mmol/L (98-107); Estimated Glomerular Filt Rate 37 mL/min (>60); Globulin 4.2 g/dL (1.7-4.1); Glucose 324 mg/dL (70-100); HEMOLYSIS < 15 (0-50); Lipase 100 U/L (23-300); Potassium 4.1 mmol/L (3.4-5.1); Sodium 136 mmol/L (137-145)
[2023-07-30] MEDS: ONDANSETRON 4 MG/2 ML INJ IV (15:20)
[2023-07-30] MEDS: SODIUM CHLORIDE 0.9% 1,000 ML 1000 ML IV (15:21)
[2023-07-30 15:30] VITALS: BP 188/94; PULSE 82; RESP 16; O2SAT 99
--- NOTE | 2023-07-30 16:15 | ED_ITS ---
HPI - General Adult General Chief complaint: Diabetic Problem Stated complaint: fatigue, diabetic problem, unable to eat Time Seen by Provider: 07/30/23 16:02 Source: patient Mode of arrival: Ambulatory History of Present Illness HPI narrative: 53-year-old male. He has an insulin-dependent diabetic. Is here for evaluation of fatigue and nausea and decreased appetite and generally not feeling very well. Patient states that he was not having any foot pain. 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 He states the surgery went well he has been doing well since then. He states he caught a ?cold? from a family member and since then he was just generally not felt very well. No abdominal pain. No chest pain or shortness of breath. No fevers. Related Data Home Medications Medication Instructions Recorded Confirmed amlodipine 10 mg tablet 10 mg PO DAILY 03/14/18 10/02/22 lisinopril 40 mg tablet 40 mg PO QAM 03/14/18 10/02/22 metformin 500 mg tablet 750 mg PO BID 03/14/18 10/02/22 insulin glargine U-300 conc 300 12 unit SUBCUT BID 03/13/22 10/02/22 unit/mL (1.5 mL) subcutaneous pen (Toujeo SoloStar U-300 Insulin) insulin lispro 100 unit/mL 12 - 15 unit SUBCUT TID 09/23/22 10/02/22 subcutaneous pen (Humalog KwikPen (U-100) Insulin) Previous Rx's Medication Instructions Recorded carvedilol 25 mg tablet 25 mg PO BIDWM #30 tabs 10/04/22 chlorthalidone 25 mg tablet 25 mg PO DAILY #30 tabs 10/04/22 metoclopramide HCl 10 mg tablet 10 mg PO Q6H PRN nausea and 10/11/22 (Reglan) vomiting #30 tabs hydrocodone 5 mg-acetaminophen 325 1 tab PO Q4H PRN pain #10 tabs 07/04/23 mg tablet sulfamethoxazole 800 1 tab PO Q12H #14 tabs 07/04/23 mg-trimethoprim 160 mg tablet (Bactrim DS) Allergies Allergy/AdvReac Type Severity Reaction Status Date / Time No Known Drug Allergies Allergy Verified 07/30/23 13:48 Review of Systems Review of Systems ROS Unobtainable: All systems reviewed & are unremarkable except as noted in HPI and below Patient History Medical History COVID Hypertension Ulcer of right leg Congestive heart failure Diabetes mellitus Ulcer of left lower leg Surgical History History of foot surgery Family History Father Myocardial infarction Mother Diabetes mellitus Brother Diabetes mellitus Social History household members: spouse and children Smoking Status: Former smoker alcohol intake: never Smoking Status: Former smoker tobacco type: cigarettes alcohol intake frequency: other Substance Use Type: does not use Exam Initial Vital Signs Initial Vital Signs: Vital Signs Temperature 97.4 F L 07/30/23 13:45 Pulse Rate 95 H 07/30/23 13:45 Respiratory Rate 18 07/30/23 13:45 Blood Pressure 188/118 H 07/30/23 13:45 Pulse Oximetry 97 07/30/23 13:45 Oxygen Delivery Method Room Air 07/30/23 13:45 Const General: cooperative HENMT Head: normal to inspection and normocephalic Resp Effort & Inspection: normal respiratory effort Auscultation: clear to auscultation bilaterally Cardio Rate: regular rate Rhythm: regular rhythm GI Inspection: normal to inspection and non-distended Neuro General: patient alert, patient awake and moves all extremities Course Orders Ordered: ED Orders 07/30/23 13:55 Complete Blood Count AUTO DIFF Stat Comprehensive Metabolic Panel Stat Lipase Stat 07/30/23 16:18 Covid-19 + FLU A/B + RSV - PCR Stat Ondansetron HCl (Ondansetron 4 Mg/2 Ml Inj) 4 mg IV NOW PRN PRN Reason: Nausea And Vomiting Last Admin: 07/30/23 15:20 Dose: 4 mg Documented By: LETITIA Discontinued Medications Sodium Chloride (Normal Saline 0.9%) 1,000 mls @ 1,000 mls/hr IV BOLUS ONE Stop: 07/30/23 15:36 Last Admin: 07/30/23 15:21 Dose: 1,000 mls/hr Documented By: LETITIA Vital Signs Vital signs: Vital Signs - 8 hr 07/30/23 13:45 07/30/23 15:30 Temperature 97.4 F L Pulse Rate 95 H 82 Respiratory Rate 18 16 Blood Pressure 188/118 H 188/94 H Pulse Oximetry 97 99 Oxygen Delivery Method Room Air Room Air Medical Decision Making Lab Data 07/30/23 13:55 07/30/23 13:55 Labs: Lab Results 07/30/23 07/30/23 Range/Units 13:55 16:18 WBC 5.4 (4.5-11.0) X10^3/uL RBC 4.48 L (4.5-5.9) X10^6/uL Hgb 12.5 L (13.5-17.5) g/dL Hct 36.9 L (41-53) % MCV 82.3 (80-100) fL MCH 27.9 (26-34) PG MCHC 33.9 (30-36) % RDW 13.7 (11.6-14.8) % Plt Count 246 (150-400) X10^3/uL Neut % (Auto) 71.4 (50-75) % Lymph % (Auto) 17.2 L (25-40) % [place] % (Auto) 10.7 (3-14) % Eos % (Auto) 0.3 L (2-4) % Baso % (Auto) 0.4 (0-2) % Neut # (Auto) 3900 (6603-9164) /uL Lymph # (Auto) 900 L (8900-1774) /uL [place] # (Auto) 600 (0-900) /uL Eos # (Auto) 0 (0-450) /uL Baso # (Auto) 0 (0-100) /uL Sodium 136 L (137-145) mmol/L Potassium 4.1 (3.4-5.1) mmol/L Chloride 104 (98-107) mmol/L Carbon Dioxide 24 (22-32) mmol/L BUN 30 H (9-20) mg/dL Creatinine 2.10 H (0.66-1.25) mg/dL Estimated GFR 37 L (>60) mL/min BUN/Creatinine Ratio 14.3 (6-22) Glucose 324 H (70-100) mg/dL Calcium 8.3 L (8.4-10.2) mg/dL Total Bilirubin 0.8 (0.2-1.3) mg/dL AST 58 (17-59) IU/L ALT 36 (<50) IU/L Alkaline Phosphatase 67 (38-126) U/L Total Protein 8.0 (6.3-8.2) g/dL Albumin 3.8 (3.5-5.0) g/dL Globulin 4.2 H (1.7-4.1) g/dL Albumin/Globulin Ratio 0.9 L (1.0-2.8) Lipase 100 (23-300) U/L SARS-CoV-2 (PCR) Positive H (Negative) Influenza A (RT-PCR) Flu a negative (NEGATIVE) Influenza B (RT-PCR) Flu b negative (NEGATIVE) RSV (PCR) Negative (Negative) Point of Care Testing Glucose POC 326 Point of care testing: Point of Care Testing Glucose POC 326 MDM Narrative Medical decision making narrative: Hyperglycemic but is not in DKA. Is afebrile. Is COVID positive. This does explain his presenting symptoms today. I did discuss with him the possibility of Paxlovid although he has had symptoms long enough that I do not think it would be necessarily all that helpful for him. He would like to hold on taking it for now. Will discharge patient home with return precautions. He expressed understanding and agreement. Discharge Plan Departure Patient Disposition: Home Clinical Impression: COVID-19, Hyperglycemia Instructions: COVID-19 Activity Restrictions/Additional Instructions: Continue to take all of your medications as directed. Follow all current CDC guidelines with regard to COVID-19. Return to the emergency department for new symptoms Prescriptions: No Action metformin 500 mg Tablet 750 mg PO BID amlodipine 10 mg Tablet 10 mg PO DAILY lisinopril 40 mg Tablet 40 mg PO QAM carvedilol 25 mg Tablet 25 mg PO BIDWM Qty: 30 0RF chlorthalidone 25 mg tablet 25 mg PO DAILY Qty: 30 0RF sulfamethoxazole-trimethoprim [Bactrim DS] 800-160 mg tablet 1 tab PO Q12H Qty: 14 0RF hydrocodone-acetaminophen 5-325 mg tablet 1 tab PO Q4H PRN (Reason: pain) Qty: 10 0RF Rx Instructions: Postop exempt Darielujaneth Candelarioar U-300 Insulin 300 unit/mL (1.5 mL) Insulin Pen 12 unit SUBCUT BID insulin lispro [Humalog KwikPen Insulin] 100 unit/mL insulin pen 12 - 15 unit SUBCUT TID Patient Comments: [NO ORIGINAL SIG] metoclopramide HCl [Reglan] 10 mg tablet 10 mg PO Q6H PRN (Reason: nausea and vomiting) Qty: 30 0RF Referrals: Toño Ovalles MD [Primary Care Provider] - Stand Alone Forms: Patient Portal/API
[2023-07-30 17:00] LABS: Influenza A - CEPHEID Flu A NEGATIVE (NEGATIVE); Influenza B - CEPHEID Flu B NEGATIVE (NEGATIVE); Respiratory Syncytial Virus Negative (Negative)
[2023-07-30 17:04] LABS: COVID-19 CEPHEID 4-PLEX PCR POSITIVE (Negative)
[2023-07-30 17:27] VITALS: BP 188/84; PULSE 87; RESP 16; TEMP 38.5; O2SAT 97
== END 2023-07-30 17:29 | disposition home or self-care (01) ==
PROVIDERS: Emergency Provider Emergency Medicine; PCP Family Medicine
DX: U07.1 COVID-19 (principal); E11.65 Type 2 diabetes mellitus with hyperglycemia; Z79.899 Other long term (current) drug therapy
CPT/HCPCS: 0241U; 36415; 80053; 82962; 83690; 85025; 96374; 99284; J2405

== ENCOUNTER 2023-08-16 09:13 | Inpatient (IN) | payer OTHER, SELFPAY ==
[2022-10-02 12:27] VITALS: BMI 36.2
[2023-08-16] VITALS (15 sets, daily range): BP systolic 162–225; BP diastolic 108–133; PULSE 80–124; RESP 15–22; TEMP 37.1–37.7; O2SAT 96–98; BMI 41.8
--- NOTE | 2023-08-16 09:24 | EKG_ITS ---
[id number] [address] Test Date: 2023-08-16 Pat Name: Curtis Mari Department: [facility] Room: Gender: Male Religious Assistant: YENNIFER : 1970 Requested By: Order Number: [id number] Reading MD: Fred Blue Measurements Intervals Brandon Rate: 111 P: 63 ME: 168 QRS: 36 QRSD: 104 T: 29 QT: 348 QTc: 473 Interpretive Statements Sinus tachycardia Electronically Signed On 08-16-2023 16:07:19 PDT by Fred Blue
--- NOTE | 2023-08-16 09:27 | DI.RAD.S_ITS ---
PROCEDURE: XR CHEST 1V INDICATIONS: sepsis TECHNIQUE: One view of the chest was acquired. COMPARISON: [facility], CR, XR CHEST 1V, 08/25/2022, 16:09. FINDINGS: Surgical changes and devices: None. Lungs and pleura: Submaximal inspiration. Lungs grossly clear. No pleural effusions or pneumothorax. Mediastinum: Mediastinal contours appear normal. Heart size is normal. Bones and chest wall: No suspicious bony lesions. Overlying soft tissues appear unremarkable. IMPRESSION: Submaximal inspiration. Grossly clear lung guidry. Dictated by: Tod Jose M.D. on 08/16/2023 at 10:22 Approved by: Tod Jose M.D. on 08/16/2023 at 10:24
--- NOTE | 2023-08-16 09:41 | ED_ITS ---
HPI - Extremity Problem General Chief complaint: Extremity Problem,Nontraumatic Stated complaint: foot ulcer per pt/leg pain, chills & fever Time Seen by Provider: 08/16/23 09:24 Source: patient Mode of arrival: Wheelchair History of Present Illness HPI Narrative: Patient is a 53-year-old male insulin-dependent diabetic, hypertension obesity chronic right foot ulceration presents today with increased pain. He is followed by wound care and states that his great toe ulcer is significantly more painful. Does look erythematous he is unable to tell me if it is always red. He was recently admitted to the hospital on July 03 worsening osteomyelitis of 4th toe necrotic tissue with tendon exposed. Orthopedic surgery was consulted and ultimately toe was amputated. Related Data Home Medications Medication Instructions Recorded Confirmed amlodipine 10 mg tablet 10 mg PO DAILY 03/14/18 08/16/23 lisinopril 40 mg tablet 40 mg PO QAM 03/14/18 08/16/23 metformin 500 mg tablet 750 mg PO BID 03/14/18 08/16/23 insulin lispro 100 unit/mL 12 - 15 unit SUBCUT TID 09/23/22 08/16/23 subcutaneous pen (Humalog KwikPen (U-100) Insulin) Previous Rx's Medication Instructions Recorded carvedilol 25 mg tablet 25 mg PO BIDWM #30 tabs 10/04/22 chlorthalidone 25 mg tablet 25 mg PO DAILY #30 tabs 10/04/22 Allergies Allergy/AdvReac Type Severity Reaction Status Date / Time No Known Drug Allergies Allergy Verified 07/30/23 13:48 Patient History Medical History COVID Hypertension Ulcer of right leg Congestive heart failure Diabetes mellitus Ulcer of left lower leg Surgical History History of foot surgery Family History Father Myocardial infarction Mother Diabetes mellitus Brother Diabetes mellitus Social History household members: spouse and children Smoking Status: Former smoker alcohol intake: never Smoking Status: Former smoker tobacco type: cigarettes alcohol intake frequency: other Substance Use Type: does not use Exam Initial Vital Signs Initial Vital Signs: Vital Signs Temperature 98.8 F 08/16/23 09:22 Pulse Rate 120 H 08/16/23 09:22 Respiratory Rate 20 08/16/23 09:22 Blood Pressure 223/128 H 08/16/23 09:22 Pulse Oximetry 98 08/16/23 09:22 Oxygen Delivery Method Room Air 08/16/23 09:22 GENERAL: Alert 53-year-old male BMI 41 HEENT: Head atraumatic,EOMI, pupils reactive, face symmetric, moist mucous membranes CARDIOVASCULAR: Regular rate and rhythm without murmurs, rubs or gallops. RESPIRATORY: Breath sounds equal bilaterally, no wheezes rales or rhonchi. ABDOMEN: Soft, nontender. Normoactive bowel sounds all 4 quadrants. No guarding or rebound. EXTREMITIES: Normal range of motion, no clubbing or edema. Neurovascularly intact NEUROLOGICAL: Alert and oriented x4.Normal gait and speech. SKIN: Right foot chronic ulcer on the plantar side by the great toe difficult drainage or surrounding erythema the 2nd toe is actually erythematous dorsally good strong distal pedal pulse no streaking up the leg Course Orders Ordered: ED Orders 08/16/23 09:24 EKG-12 Lead Stat 08/16/23 09:27 Chest [XR chest 1V] Stat 08/16/23 09:30 CBC Auto Diff [Complete Blood Count AUTO DIFF] Stat CMP [Comprehensive Metabolic Panel] Stat CRP [C-Reactive Protein Quant] Stat ESR [Erythrocyte Sedimentation Rate] Stat Ketones (Beta-Hydroxybutyrate) Stat Lactate (Lactic Acid) Stat Troponin & CK Cardiac Panel Stat 08/16/23 09:38 Blood Culture Stat 08/16/23 09:43 XR foot RT min 3V Stat 08/16/23 10:05 Venous Blood Gas Stat 08/16/23 10:50 Wound Culture and Gram Stain Stat 08/17/23 05:00 Complete Blood Count AUTO DIFF DAILY Comprehensive Metabolic Panel DAILY Hemoglobin A1C% w Est Avg Glu Routine Magnesium DAILY 08/18/23 05:00 Complete Blood Count AUTO DIFF DAILY Comprehensive Metabolic Panel DAILY Magnesium DAILY 08/19/23 05:00 Complete Blood Count AUTO DIFF DAILY Comprehensive Metabolic Panel DAILY Magnesium DAILY Acetaminophen (Acetaminophen 325 Mg Tablet) 650 mg PO Q6H PRN PRN Reason: Fever/Mild Pain (1-3) Amlodipine Besylate (Amlodipine 5 Mg Tablet) 10 mg PO DAILY [place] Carvedilol (Carvedilol 12.5 Mg Tablet) 25 mg PO BIDWM [facility] Chlorthalidone (Chlorthalidone 25 Mg Tablet) 25 mg PO DAILY [facility] Enoxaparin Sodium (Enoxaparin 40 Mg/0.4 Ml Syringe) 40 mg SUBCUT BID [place] Hydromorphone HCl (Hydromorphone 0.5 Mg Inj) 0.5 mg IV Q2H PRN PRN Reason: Pain, Severe (7-10) Dextrose (D10w) 100 mls @ 999 mls/hr IV PRN PRN PRN Reason: Hypoglycemia Insulin Glargine (Insulin Glargine 100 Unit/Ml 3ml Pen) 20 unit SUBCUT BEDTIME SASKIA Insulin Human Lispro (Insulin Lispro 100 Unit/Ml 3ml Vial) 10 unit SUBCUT AC SASKIA Insulin Human Lispro (Insulin Lispro 100 Unit/Ml 3ml Vial) 0 unit SUBCUT ACHS SASKIA; Protocol Naloxone HCl (Naloxone 0.4 Mg/Ml Vial) 0.2 mg IV Q2MIN PRN PRN Reason: Opiate Reversal Ondansetron HCl (Ondansetron 4 Mg/2 Ml Inj) 4 mg IV Q8HR PRN PRN Reason: Nausea And Vomiting Oxycodone HCl (Oxycodone Ir 5 Mg Tablet) 5 mg PO Q3H PRN PRN Reason: Pain, Moderate (4-6) Oxycodone HCl (Oxycodone Ir 10 Mg Tablet) 10 mg PO Q3H PRN PRN Reason: Pain, Severe (7-10) Discontinued Medications Amlodipine Besylate (Amlodipine 5 Mg Tablet) 10 mg PO NOW ONE Stop: 08/16/23 10:36 Last Admin: 08/16/23 10:47 Dose: 10 mg Documented By: MARCY Carvedilol (Carvedilol 12.5 Mg Tablet) 25 mg PO NOW ONE Stop: 08/16/23 10:35 Last Admin: 08/16/23 10:47 Dose: 25 mg Documented By: MARCY Sodium Chloride (Normal Saline 0.9%) 1,000 mls @ 1,000 mls/hr IV BOLUS ONE Stop: 08/16/23 10:23 Last Infusion: 08/16/23 11:12 Dose: Infused Documented By: Admin: 08/16/23 10:01 Dose: 1,000 mls/hr Documented By: ADA Cefepime HCl 2 gm/ Sodium (Chloride) 100 mls @ 200 mls/hr IV NOW ONE Stop: 08/16/23 10:53 Last Infusion: 08/16/23 11:12 Dose: Infused Documented By: Admin: 08/16/23 11:08 Dose: 200 mls/hr Documented By: ADA Vancomycin HCl/Dextrose (Vancomycin) 2,000 mg in 400 mls @ 200 mls/hr IV NOW ONE Stop: 08/16/23 12:51 Last Infusion: 08/16/23 14:36 Dose: Infused Documented By: Infusion: 08/16/23 13:17 Dose: 200 mls/hr Documented By: Infusion: 08/16/23 12:52 Dose: 0 mls/hr Documented By: Admin: 08/16/23 11:49 Dose: 200 mls/hr Documented By: MANI Sodium Chloride (Normal Saline 0.9%) 2,259 mls @ 753 mls/hr 30 ml/kg infuse over 3 hr (2259 ml) IV NOW ONE Stop: 08/16/23 15:14 Last Admin: 08/16/23 12:26 Dose: 753 mls/hr Documented By: MANI Lisinopril (Lisinopril 20 Mg Tablet) 40 mg PO NOW ONE Stop: 08/16/23 10:35 Last Admin: 08/16/23 10:47 Dose: 40 mg Documented By: MARCY Vital Signs Vital signs: Vital Signs - 8 hr 08/16/23 09:22 08/16/23 09:24 08/16/23 09:30 Temperature 98.8 F Pulse Rate 120 H 114 H 109 H Pulse Rate [Right Posterior Tibial] Respiratory Rate 20 15 17 Blood Pressure 223/128 H Pulse Oximetry 98 97 97 Oxygen Delivery Method Room Air 08/16/23 09:38 08/16/23 10:00 08/16/23 10:01 Temperature Pulse Rate 111 H 116 H Pulse Rate [Right Posterior Tibial] 80 Respiratory Rate 16 18 Blood Pressure Pulse Oximetry 97 97 Oxygen Delivery Method 08/16/23 10:01 08/16/23 10:15 08/16/23 10:30 Temperature Pulse Rate 124 H 111 H Pulse Rate [Right Posterior Tibial] Respiratory Rate 20 21 Blood Pressure 225/133 H Pulse Oximetry 98 97 Oxygen Delivery Method 08/16/23 10:45 08/16/23 10:47 08/16/23 10:47 Temperature Pulse Rate 110 H Pulse Rate [Right Posterior Tibial] Respiratory Rate 22 Blood Pressure 225/133 H 225/133 H Pulse Oximetry 96 Oxygen Delivery Method MDM - Extremity (Nontraumatic) Lab Data 08/16/23 09:30 08/16/23 09:30 Labs: Lab Results 08/16/23 08/16/23 08/16/23 Range/Units 09:30 10:05 11:24 WBC 13.5 H (4.5-11.0) X10^3/uL RBC 4.54 (4.5-5.9) X10^6/uL Hgb 12.6 L (13.5-17.5) g/dL Hct 37.7 L (41-53) % MCV 83.0 (80-100) fL MCH 27.8 (26-34) PG MCHC 33.5 (30-36) % RDW 14.1 (11.6-14.8) % Plt Count 256 (150-400) X10^3/uL Neut % (Auto) 80.8 H (50-75) % Lymph % (Auto) 12.0 L (25-40) % [place] % (Auto) 5.0 (3-14) % Eos % (Auto) 1.8 L (2-4) % Baso % (Auto) 0.4 (0-2) % Neut # (Auto) 32578 H (5967-8218) /uL Lymph # (Auto) 1600 (1856-9169) /uL [place] # (Auto) 700 (0-900) /uL Eos # (Auto) 200 (0-450) /uL Baso # (Auto) 100 (0-100) /uL ESR 65 H (0-15) MM/HR VBG pH 7.38 (7.33-7.43) VBG pCO2 45.8 (45-50) mmHg VBG pO2 19 L (35-45) mmHg VBG HCO3 27 (24-28) mmol/L VBG Total CO2 27 (24-29) mmol/L VBG O2 Saturation 28 L (70-75) % VBG Base Excess 1.5 (0-4) mmol/L FiO2 21 Sodium 134 L (137-145) mmol/L Potassium 4.2 (3.4-5.1) mmol/L Chloride 97 L (98-107) mmol/L Carbon Dioxide 28 (22-32) mmol/L BUN 23 H (9-20) mg/dL Creatinine 1.93 H (0.66-1.25) mg/dL Estimated GFR 41 L (>60) mL/min BUN/Creatinine Ratio 11.9 (6-22) Glucose 426 H (70-100) mg/dL Lactate 2.3 H 2.3 H (0.7-2.1) mmol/L Calcium 8.9 (8.4-10.2) mg/dL Total Bilirubin 0.9 (0.2-1.3) mg/dL AST 38 (17-59) IU/L ALT 29 (<50) IU/L Alkaline Phosphatase 97 (38-126) U/L Total Creatine Kinase 134 (55-170) U/L Troponin I 0.021 (0.01-0.034) ng/mL C-Reactive Protein 3.5 H (<1.0) mg/dL Total Protein 8.8 H (6.3-8.2) g/dL Albumin 4.2 (3.5-5.0) g/dL Globulin 4.6 H (1.7-4.1) g/dL Albumin/Globulin Ratio 0.9 L (1.0-2.8) Ketones 0.25 (<0.27) mmol/L Point of Care Testing Glucose POC 398 Imaging Data Extremity x-ray #1: Radiologist's Impression: PROCEDURE: XR FOOT RT MIN 3V INDICATIONS: ulcer TECHNIQUE: 3 views of the foot were acquired. COMPARISON: [facility], CR, XR FOOT 3+ VIEWS RIGHT, 03/27/2023, 8:13. [facility], CR, XR FOOT LT MIN 3V, 07/04/2023, 9:36. FINDINGS: Bones: Remote resection of the distal aspect of the 5th metatarsal and proximal aspect of the 5th proximal phalanx. Interval development of osteopenia involving the heads of the 2nd through 4th metatarsals. No obvious cortical destruction. Soft tissues: No tibiotalar joint effusion. Achilles tendon appears normal. IMPRESSION: Developing osteopenia involving the heads of the 2nd through 4th metatarsals may potentially represent early evidence of osteomyelitis. Comment: Consider foot MRI with and without contrast. Dictated by: Tod Jose M.D. on 08/16/2023 at 10:31 Chest x-ray: Radiologist's Impression: PROCEDURE: XR CHEST 1V INDICATIONS: sepsis TECHNIQUE: One view of the chest was acquired. COMPARISON: [facility], , XR CHEST 1V, 08/25/2022, 16:09. FINDINGS: Surgical changes and devices: None. Lungs and pleura: Submaximal inspiration. Lungs grossly clear. No pleural effusions or pneumothorax. Mediastinum: Mediastinal contours appear normal. Heart size is normal. Bones and chest wall: No suspicious bony lesions. Overlying soft tissues appear unremarkable. IMPRESSION: Submaximal inspiration. Grossly clear lung guidry. Dictated by: Tod Jose M.D. on 08/16/2023 at 10:22 ECG Data Attestation EKG: I personally reviewed and interpreted this ECG as follows: Prior ECG tracings: available for review Interpretation: Normal sinus rhythm rate 111, her has [address] changes no T-wave inversions similar to previous EKGs MDM Narrative Medical decision making narrative: [facility] CC: Right foot pain Complicating co-morbidities: Insulin-dependent diabetes chronic bilateral foot ulcers Corroborating data: [ ] Data collected from: [ ] Medical records reviewed: Yes Differential considered: Osteomyelitis cellulitis DKA sepsis Exam documented above, pertinent findings include: Ulcer on right plantar foot at bottom of MCP. It does tunnel there is no surrounding erythema minimal drainage Lab Test results independently reviewed as above. Pertinent findings: WBC 13, ESR 65, CRP 3.5, lactate 2.3 with repeat of 2.3, with repeat 2.3, sodium 134, potassium 4.2, chloride 97, carbon dioxide 28, BUN 23, creatinine 1.93 previously 2.1, glucose 426, troponin negative, venous pH 7.38 Independently reviewed EKG as above sinus rhythm no ischemia Imaging studies independently reviewed: Possible osteomyelitis on foot x-ray, chest x-ray negative Consultations: Dr. Cortez updated on patient's symptoms and admits to inpatient Treatments: IV fluids for sepsis, vancomycin, cefepime, home blood pressure medications Re-evaluations: [ ] Discussion: Patient with history of insulin-dependent diabetes chronic foot ulcerations with recent toe amputation presents today with increased pain. Concern for new or worsening osteomyelitis of his right foot. He does have an elevated ESR and CRP although they are slightly lower than previously. He has persistently elevated lactate 2.3 despite 1 L of IV fluids. Sepsis fluids are ordered at the 2nd elevated lactate. He is given Dilaudid for pain which helps. Discharge Plan Departure Patient Disposition: Admitted As Inpatient Clinical Impression: Acute osteomyelitis of right foot Admit Date/Time: 08/16/23 11:59 Admit Provider: Fred Blue
[2023-08-16 09:42] LABS: Add Manual Diff / Slide Review NO; Basophils Absolute Auto 100 /uL (0-100); Basophils Percent Auto 0.4 % (0-2); Eosinophils Absolute Auto 200 /uL (0-450); Eosinophils Percent Auto 1.8 % (2-4); Hematocrit 37.7 % (41-53); Hemoglobin 12.6 g/dL (13.5-17.5); Lymphocytes Absolute Auto 1600 /uL (1100-4500); Mean Corpuscular HGB Conc 33.5 % (30-36); Mean Corpuscular Hemoglobin 27.8 PG (26-34); Monocytes Absolute Auto 700 /uL (0-900); Neutrophils Absolute Auto 10900 /uL (1500-7000); Neutrophils Percent Auto 80.8 % (50-75); Platelet Count 256 X10^3/uL (150-400); Red Blood Cell Count 4.54 X10^6/uL (4.5-5.9); Red Cell Distribution Width 14.1 % (11.6-14.8); White Blood Cell Count 13.5 X10^3/uL (4.5-11.0)
[2023-08-16 09:56] LABS: Lactate (Lactic Acid) 2.3 mmol/L (0.7-2.1)
[2023-08-16 10:00] LABS: Alanine Aminotransferase 29 IU/L (<50); Albumin 4.2 g/dL (3.5-5.0); Albumin Globulin Ratio 0.9 (1.0-2.8); Alkaline Phosphatase 97 U/L (38-126); Aspartate Aminotransferase 38 IU/L (17-59); BUN Creatinine Ratio 11.9 (6-22); Bilirubin Total 0.9 mg/dL (0.2-1.3); Blood Urea Nitrogen 23 mg/dL (9-20); C-Reactive Protein Quant 3.5 mg/dL (<1.0); Calcium 8.9 mg/dL (8.4-10.2); Carbon Dioxide 28 mmol/L (22-32); Chloride 97 mmol/L (98-107); Creatine Kinase 134 U/L (55-170); Erythrocyte Sedimentation Rate 65 MM/HR (0-15); Estimated Glomerular Filt Rate 41 mL/min (>60); Globulin 4.6 g/dL (1.7-4.1); Glucose 426 mg/dL (70-100); HEMOLYSIS < 15 (0-50); Potassium 4.2 mmol/L (3.4-5.1); Sodium 134 mmol/L (137-145); Total Protein 8.8 g/dL (6.3-8.2)
[2023-08-16] MEDS: SODIUM CHLORIDE 0.9% 1,000 ML 1000 ML IV (10:01)
[2023-08-16 10:03] LABS: Ketones (Beta-Hydroxybutyrate) 0.25 mmol/L (<0.27)
[2023-08-16 10:09] LABS: Troponin I 0.021 ng/mL (0.01-0.034)
[2023-08-16 10:45] LABS: Base Excess VBG 1.5 mmol/L (0-4); HCO3 VBG 27 mmol/L (24-28); PCO2 VBG 45.8 mmHg (45-50); PO2 VBG 19 mmHg (35-45); Total CO2 VBG 27 mmol/L (24-29); pH VBG 7.38 (7.33-7.43)
[2023-08-16 10:46] LABS: Fractionated Inspired Oxygen 21; Oxygen Saturation VBG 28 % (70-75)
[2023-08-16] MEDS: AMLODIPINE 5 MG TABLET 10 MG PO (10:47)
[2023-08-16] MEDS: lisinopriL 20 MG TABLET 40 MG PO (10:47)
[2023-08-16] MEDS: carvediloL 12.5 MG TABLET 25 MG PO ×2 (10:47→17:00)
[2023-08-16] MEDS: CEFEPIME 2 GM in SODIUM CHLORIDE 0.9% 100 ML IV ×2 (11:08→23:18)
[2023-08-16 11:14] LABS: Reflexed Lactate in 2 Hours Y
[2023-08-16 11:42] LABS: Lactate 2HR (Lactic Acid Rflx) 2.3 mmol/L (0.7-2.1)
[2023-08-16] MEDS: VANCOMYCIN 2,000 MG/400 ML PIGGYBACK 200 MG IV (11:49)
[2023-08-16] MEDS: SODIUM CHLORIDE 0.9% 2,259 ML 753 ML IV (12:26)
--- NOTE | 2023-08-16 13:03 | DI.MRI.S_ITS ---
PROCEDURE: MR FOOT RT WO/W CON INDICATIONS: R foot abscess vs osteo TECHNIQUE: Noncontrast coronal T1 spin echo and STIR, sagittal T1 spin echo with fat saturation and STIR, axial T1 spin echo and T2 fast spin echo with fat saturation. After the administration of contrast, axial/sagittal/coronal T1 spin echo with fat saturation through the right foot . COMPARISON: [facility], MR, MR FOOT LT WO/W CON, 03/16/2018, 9:17. FINDINGS: Image quality: Limited evaluation given patient motion, specifically, very limited evaluation of the distal toes. Bones: Status post resection of the distal 5th metatarsal and the proximal 5th proximal phalanx.. There is mild marrow edema of the residual 5th metatarsal diaphysis, without confluent T1 hypointensity, favoring reactive. Multifocal degenerative changes in midfoot, most pronounced and moderate at the medial cuneiform and the navicular articulation, with subchondral marrow edema and cystic changes. No acute fracture. Soft tissues: Marked subcutaneous edema of the dorsal midfoot. Additional marked subcutaneous edema in the plantar forefoot. No drainable fluid collection. Diffuse muscle edema with moderate fatty atrophy, nonspecific and may be secondary to denervation. The flexor and the extensor tendons are unremarkable. The Lisfranc ligament is grossly intact. IMPRESSION: 1. Reactive marrow edema in the residual 5th metatarsal diaphysis. No osteomyelitis in the foot. 2. Subcutaneous edema, nonspecific but can be seen the setting of cellulitis. No drainable fluid collection. 3. Limited evaluation given patient motion. Specifically, extremely limited evaluation the distal toes. Dictated by: Venita Hudson M.D. on 08/16/2023 at 16:17 Approved by: Venita Hudson M.D. on 08/16/2023 at 16:27
--- NOTE | 2023-08-16 14:37 | PC.NURSE ---
DR.HOLMAN LENTZ AWARE OF BLOOD SUGAR 322
--- NOTE | 2023-08-16 15:10 | PM.HP.1 ---
History of Present Illness History of Present Illness Date Patient Seen: 08/16/23 Time Patient Seen: 14:20 Chief complaint: foot ulcer per pt/leg pain, chills & fever Narrative: 52-year-old male insulin-dependent diabetic with chronic wounds on his lower extremities s/p L toe amputation at the end of june 2023, hypertension that is not well controlled, uncontrolled diabetes with gastroparesis who presented with worsening redness, swelling, and pain on his R foot. Patient reports this has started over the last day. He denies trauma or stepping on something, he did notice some small drainage from the bottom of his R foot. He also reports subjective fever, mild chills, mild nausea. He denies abdominal pain, emesis, diarrhea. He has had no chest pain or palpitations. His left foot he denies problems with. In the ER, Xray showed possible osteo. CRP elevated at 3.5, ESR 65. Cr was around baseline at 1.93. Mild leukocytosis with WBC 13.5. Glucose was 426, without anion gap. He was admitted for antibiotics, presumed osteomyelitis. MRI was ordered prior to presumed need for orthopedic consultation. [facility] Medical History COVID Hypertension Ulcer of right leg Congestive heart failure Diabetes mellitus Ulcer of left lower leg Surgical History History of foot surgery Family History Father Myocardial infarction Mother Diabetes mellitus Brother Diabetes mellitus Social History household members: spouse and children Smoking Status: Former smoker alcohol intake: never Meds Home Medications and Allergies Home Medications Medication Instructions Recorded Confirmed Type amlodipine 10 mg tablet 10 mg PO DAILY 03/14/18 08/16/23 History lisinopril 40 mg tablet 40 mg PO QAM 03/14/18 08/16/23 History metformin 500 mg tablet 750 mg PO BID 03/14/18 08/16/23 History insulin lispro 100 unit/mL 12 - 15 unit SUBCUT TID 09/23/22 08/16/23 History subcutaneous pen (Humalog KwikPen (U-100) Insulin) carvedilol 25 mg tablet 25 mg PO BIDWM #30 tabs 10/04/22 08/16/23 Rx chlorthalidone 25 mg tablet 25 mg PO DAILY #30 tabs 10/04/22 08/16/23 Rx Allergies Allergy/AdvReac Type Severity Reaction Status Date / Time No Known Drug Allergies Allergy Verified 07/30/23 13:48 Review of Systems Review of Systems Narrative: All other systems reviewed with the patient and are negative unless otherwise stated. Exam Vital Signs (past 8 hours): - 08/16/23 09:22 08/16/23 09:24 08/16/23 09:30 Temperature 98.8 F Pulse Rate 120 H 114 H 109 H Pulse Rate [Right Posterior Tibial] Respiratory Rate 20 15 17 Blood Pressure 223/128 H Pulse Oximetry 98 97 97 Oxygen Delivery Method Room Air Oxygen Flow Rate 08/16/23 09:38 08/16/23 10:00 08/16/23 10:01 Temperature Pulse Rate 111 H 116 H Pulse Rate [Right Posterior Tibial] 80 Respiratory Rate 16 18 Blood Pressure Pulse Oximetry 97 97 Oxygen Delivery Method Oxygen Flow Rate 08/16/23 10:01 08/16/23 10:15 08/16/23 10:30 Temperature Pulse Rate 124 H 111 H Pulse Rate [Right Posterior Tibial] Respiratory Rate 20 21 Blood Pressure 225/133 H Pulse Oximetry 98 97 Oxygen Delivery Method Oxygen Flow Rate 08/16/23 10:45 08/16/23 10:47 08/16/23 10:47 Temperature Pulse Rate 110 H Pulse Rate [Right Posterior Tibial] Respiratory Rate 22 Blood Pressure 225/133 H 225/133 H Pulse Oximetry 96 Oxygen Delivery Method Oxygen Flow Rate 08/16/23 12:45 Temperature 99.8 F H Pulse Rate 98 H Pulse Rate [Right Posterior Tibial] Respiratory Rate 18 Blood Pressure 187/110 H Pulse Oximetry 97 Oxygen Delivery Method Oxygen Flow Rate 0 Oxygen Delivery Method Room Air Oxygen Flow Rate 0 Narrative Exam Narrative: Gen: mildly ill appearing obese male, no acute distress CV: RRR no m/r/g Pulm: CTA b/l Abd: S NT ND Ext: non-pitting edema b/l LE. L foot bandages c/d/i. R distal foot erythema over 1st MTP, extending to approx 3rd digit with erythema of that toe as well. On the plantar aspect there is mild what appears to be non-purulent drainage from a calloused area around the base of his 2nd toe. Objective Labs 08/16/23 09:30 08/16/23 09:30 Labs: Laboratory Results - last 24 hr 08/16/23 08/16/23 08/16/23 09:30 10:05 11:24 WBC 13.5 H RBC 4.54 Hgb 12.6 L Hct 37.7 L MCV 83.0 MCH 27.8 MCHC 33.5 RDW 14.1 Plt Count 256 Neut % (Auto) 80.8 H Lymph % (Auto) 12.0 L [place] % (Auto) 5.0 Eos % (Auto) 1.8 L Baso % (Auto) 0.4 Neut # (Auto) 19991 H Lymph # (Auto) 1600 [place] # (Auto) 700 Eos # (Auto) 200 Baso # (Auto) 100 ESR 65 H VBG pH 7.38 VBG pCO2 45.8 VBG pO2 19 L VBG HCO3 27 VBG Total CO2 27 VBG O2 Saturation 28 L VBG Base Excess 1.5 FiO2 21 Sodium 134 L Potassium 4.2 Chloride 97 L Carbon Dioxide 28 BUN 23 H Creatinine 1.93 H Estimated GFR 41 L BUN/Creatinine Ratio 11.9 Glucose 426 H Lactate 2.3 H 2.3 H Calcium 8.9 Total Bilirubin 0.9 AST 38 ALT 29 Alkaline Phosphatase 97 Total Creatine Kinase 134 Troponin I 0.021 C-Reactive Protein 3.5 H Total Protein 8.8 H Albumin 4.2 Globulin 4.6 H Albumin/Globulin Ratio 0.9 L Ketones 0.25 Assessment & Plan Assessment & Plan narrative: 1. R foot presumed osteomyelitis vs cellulitis - XR findings consistent with possible osteomyelitis. Differential does include gout as well given location. - MR foot ordered to see if drainable collection or osteo, if either present will consult orthopedics. - check uric acid level with AM labs - continue cefepime and vancomycin per pharmacy. 2. Diabetes mellitus type 2, insulin using - hold metformin. - Glucose >400 on admit, A1c ordered - Start lantus 20 U nightly, 10 U lispro TID AC, and medium dose sliding scale. Adjust as needed 3. Hypertension, chronic, present on admission. Stable. - continue home amlodipine, coreg, and chlrothalidone. Hold lisinopril in case of possible surgery. 4. CKD stage III - Cr at baseline around 1.93. Renally dose medications as indicated. Will continue to follow. Code: Full, surrogate is patient's son DVT: SCDs for now, if no OR need will start lovenox I have utilized all available immediate resources to obtain, update, or review the patient's current medications. Dispo: patient admitted under inpatient status. Unclear if will be able to discharge home or possible SNF, will have PT/OT evaluations. Additional history obtained via discussions with the ER provider. These discussions contributed to the creation of the above assessment and plan. I have reviewed patient's presenting documentation, labs, and imaging personally. Time-Based Coding :: [TOTAL MINUTES] spent with patient and on the chart (including review of chart, obtaining history, exam, reviewing outside data, placing orders, documenting exam and treatment plan, and counseling patient) on [DATE].
[2023-08-16] MEDS: INSULIN LISPRO 100 UNIT/ML 3ML VIAL SUBCUT ×2 (17:01→20:53)
[2023-08-16] MEDS: INSULIN LISPRO 100 UNIT/ML 3ML VIAL 10 UNIT SUBCUT (17:01)
[2023-08-16 17:16] LABS: Lactate (Lactic Acid) 1.3 mmol/L (0.7-2.1)
[2023-08-16] MEDS: ENOXAPARIN 40 MG/0.4 ML SYRINGE SUBCUT (20:25)
[2023-08-16] MEDS: INSULIN GLARGINE 100 UNIT/ML 3ML PEN 20 UNIT SUBCUT (20:52)
[2023-08-17] VITALS (8 sets, daily range): BP systolic 117–193; BP diastolic 76–116; PULSE 74–91; RESP 16–18; TEMP 36.4–37.1; O2SAT 95–99
[2023-08-17] MEDS: VANCOMYCIN 1,000 MG/200 ML PIGGYBACK 200 MG IV (00:50)
[2023-08-17 06:25] LABS: Add Manual Diff / Slide Review NO; Basophils Absolute Auto 0 /uL (0-100); Basophils Percent Auto 0.5 % (0-2); Eosinophils Absolute Auto 0 /uL (0-450); Eosinophils Percent Auto 0.4 % (2-4); Hematocrit 30.5 % (41-53); Hemoglobin 10.4 g/dL (13.5-17.5); Lymphocytes Absolute Auto 1200 /uL (1100-4500); Mean Corpuscular HGB Conc 34.2 % (30-36); Mean Corpuscular Volume 81.8 fL (80-100); Monocytes Absolute Auto 700 /uL (0-900); Monocytes Percent Auto 9.2 % (3-14); Neutrophils Absolute Auto 5700 /uL (1500-7000); Neutrophils Percent Auto 73.9 % (50-75); Platelet Count 185 X10^3/uL (150-400); Red Blood Cell Count 3.73 X10^6/uL (4.5-5.9); Red Cell Distribution Width 14.1 % (11.6-14.8); White Blood Cell Count 7.8 X10^3/uL (4.5-11.0)
[2023-08-17 06:35] LABS: Alanine Aminotransferase 20 IU/L (<50); Albumin 3.2 g/dL (3.5-5.0); Albumin Globulin Ratio 0.9 (1.0-2.8); Alkaline Phosphatase 60 U/L (38-126); Aspartate Aminotransferase 27 IU/L (17-59); BUN Creatinine Ratio 11.7 (6-22); Bilirubin Total 0.8 mg/dL (0.2-1.3); Blood Urea Nitrogen 21 mg/dL (9-20); Calcium 8.1 mg/dL (8.4-10.2); Carbon Dioxide 26 mmol/L (22-32); Chloride 106 mmol/L (98-107); Estimated Glomerular Filt Rate 44 mL/min (>60); Globulin 3.7 g/dL (1.7-4.1); Glucose 302 mg/dL (70-100); HEMOLYSIS < 15 (0-50); Magnesium 1.8 mg/dL (1.6-2.3); Potassium 3.8 mmol/L (3.4-5.1); Sodium 135 mmol/L (137-145); Total Protein 6.9 g/dL (6.3-8.2)
[2023-08-17 06:37] LABS: Uric Acid 8.7 mg/dL (3.5-8.5)
[2023-08-17 06:38] LABS: Hemoglobin A1C% w Est Avg Glu > 14.0 % (4.0-6.0)
[2023-08-17] MEDS: INSULIN LISPRO 100 UNIT/ML 3ML VIAL 10 UNIT SUBCUT ×2 (07:50→12:07)
[2023-08-17] MEDS: INSULIN LISPRO 100 UNIT/ML 3ML VIAL SUBCUT ×2 (07:53→12:08)
[2023-08-17] MEDS: ENOXAPARIN 40 MG/0.4 ML SYRINGE SUBCUT (08:03)
[2023-08-17] MEDS: carvediloL 12.5 MG TABLET 25 MG PO (08:05)
[2023-08-17] MEDS: AMLODIPINE 5 MG TABLET 10 MG PO (08:07)
[2023-08-17] MEDS: CHLORTHALIDONE 25 MG TABLET PO (08:07)
--- NOTE | 2023-08-17 09:50 | PT.IIE ---
Current Diagnoses Osteomyelitis, unspecified (08/16/23) Surgical History (Last Reviewed 08/16/23 @ 15:18 by Fred Blue DO) History of foot surgery Medical History (Last Reviewed 08/16/23 @ 15:18 by Fred Blue DO) Congestive heart failure COVID Diabetes mellitus Hypertension Ulcer of left lower leg Ulcer of right leg Physical Therapy Inpatient Evaluation/Re-Eval M1 PT/OT-IP Prior Functional Status Start: 08/17/23 12:20 Freq: NEEDED Status: Active Protocol: Document 08/17/23 09:50 AB (Rec: 08/17/23 12:32 AB [id number]) Medical Review Prior Functional Status Medical History Reviewed Yes Communication able to make needs known Mobility and Gait pt stated that he was independent with all mobilities and ambulation without AD Social History Household Members spouse,children Living Arrangements Apartment/Condo Number of Floors (Floors) Two Floors Number of Stairs To Enter/Railing? 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 M2 PT-IP Current Condition Start: 08/17/23 12:20 Freq: NEEDED Status: Active Protocol: Document 08/17/23 09:50 AB (Rec: 08/17/23 12:32 AB [id number]) Physical Therapy Current Condition Current Condition Evaluation Date 08/17/23 Treatment Diagnosis R foot osteomyelitis; difficulty in walking Onset Date 08/16/23 M3 PT-IP Subjective Start: 08/17/23 12:20 Freq: NEEDED Status: Active Protocol: Document 08/17/23 09:50 AB (Rec: 08/17/23 12:32 AB [id number]) Subjective Physical Therapy Visit Type Type Initial Evaluation Visit Start Time 09:50 Visit Stop Time 10:10 Number of [employer] Visits 0 Physical Therapy Visit Comments Patient Comments agreeable to do PT Therapy Pain Assessment Pain When Pain Assessed At Rest Pain Present Pain Present Pain Reported Location Right Foot Intensity 3 Scale Used increases with weight bearing Pain Management Techniques Modification of Treatment,Re- positioning,Timing of Activity with Medications M4 PT-IP Mobility and Gait Start: 08/17/23 12:20 Freq: NEEDED Status: Active Protocol: Document 08/17/23 09:50 AB (Rec: 08/17/23 12:32 AB [id number]) PT-Bed Mobility Assessment Supine to Sit Supine to Sit Standby Assistance Sit to Supine Sit to Supine Standby Assistance PT-Transfer Assessment Sit to and From Stand Sit to and from Stand Standby Assistance Equipment Transfer Assistive Device None Orthotic/Prosthetic Devices or Brace: Yes Comments Mobility Comments pt supine in bed and agrred to do PT. obtained PLOF and home set up from pt. pt stated that he is moving well in his room and goes to the toilet by himself. pt completed supine to sit SBA with use of bed rail. pt able to sit on EOB SBA. completed sit to stand SBA and ambulated in room ~ 20 ft without AD. presents with unsteady gait. pt sat on EOB. informed pt regarding use of AD and pt refused. pt stated that he does not need any AD for walking. educated pt on benefits and risks and pt understood but continues to refuse use of AD. pt completed up/down step stool using R side counter to simulate R rail SBA. repeated x 2. pt stated that he does not need PT and will be fine at home. stated that he has his spouse and sons to assist him if needed. Gait Assessment Gait Gait Assistance Required: Standby Assistance Distance (Feet) 20 Able to Maintain Weight Bearing Status Yes During Gait Assistive Devices Assistive Device None,Gait Belt Orthotic/Prosthetic Devices or Brace: Yes Gait Deviations General Gait Pattern Antalgic,Ataxic,Decreased Stride Length,Decreased Feet Clearance Factors Limiting Gait Function Factors Limiting Gait Function Decreased Activity Tolerance, Decreased Strength,Limited Range of Motion,Pain,Poor Balance,Poor Safety Awareness Stair Climbing Assessment Evaluation Level of Assist On Stairs Standby Assistance Devices Stair Climbing Assistive Devices Right Railing Technique/Endurance Stair Climbing Direction Ascend and Descend Stair Climbing Technique Step to Step Number of Steps Climbed 1 Query Text: Stair Climbing Set # Repetitions (reps) 2 PT-Balance Assessment Sitting Balance and Reactions Static Sitting Balance Ability Normal Dynamic Sitting Balance Ability Good Standing Balance and Reactions Static Standing Balance Ability Good Dynamic Standing Balance Ability Fair Device Used without AD M5 PT-IP Objective Assessments Start: 08/17/23 12:20 Freq: NEEDED Status: Active Protocol: Document 08/17/23 09:50 AB (Rec: 08/17/23 12:32 AB [id number]) Orientation Orientation/Cognition Level of Alertness Alert Orientation Name,Age,Birthday,Month,Date, Year,Day of Week,Place, Situation Language Function Ability No Deficits Noted Safety Awareness Decreased Safety Awareness Memory Description No Deficits Noted Gross Range of Motion Lower Extremity ROM Assessment Within Functional Limits Strength Lower Extremity Strength Assessment Within Functional Limits Coordination Assessment Gross Coordination Gross Coordination WNL Muscle Tone Muscle Tone WNL Yes M6 PT-IP Treatment Start: 08/17/23 12:20 Freq: NEEDED Status: Active Protocol: Document 08/17/23 09:50 AB (Rec: 08/17/23 12:32 AB [id number]) Physical Therapy Treatment Education Education Provided Safety M7 PT-IP Assessment and Plan Start: 08/17/23 12:20 Freq: NEEDED Status: Active Protocol: Document 08/17/23 09:50 AB (Rec: 08/17/23 12:32 AB [id number]) PT Summary Assessment and Plan Potential Rehabilitation Potential Fair Status of Condition at Evaluation Evolving Summary Impairments Pain,ROM,Strength,Balance, Sensation,Bed Mobility, Transfers,Gait,Activity Tolerance Assessment Summary pt is a 53 y/o M who is admitted for R foot osteomyelitis. pt requiring SBA with mobility using FWW and presents with unsteady gait but pt refused to use any AD. per pt's request: does not want PT intervention. will d/c PT. pt lives with his spouse and 2 sons that will be able to assist him per pt. Frequency of Treatment Frequency Of Treatment Discharge Recommendations To Nursing Amount of Assist Needed Standby Assistance Discharge Recommendations PT Discharge Recommendations Home with Assistance, Outpatient PT Transportation Needs at Discharge Private Vehicle
[2023-08-17] MEDS: CEFEPIME 2 GM in SODIUM CHLORIDE 0.9% 100 ML IV (12:11)
--- NOTE | 2023-08-17 13:05 | OT.IPNOTE ---
Per hospitalist okay to discharge OT eval orders as pt has no needs and to assist as needed.
--- NOTE | 2023-08-17 13:32 | PM.DS.1 ---
History of Present Illness History of Present Illness Date Patient Seen: 08/17/23 Time Patient Seen: 13:32 Chief complaint: foot ulcer per pt/leg pain, chills & fever Narrative: 52-year-old male insulin-dependent diabetic with chronic wounds on his lower extremities s/p L toe amputation at the end of june 2023, hypertension that is not well controlled, uncontrolled diabetes with gastroparesis who presented with worsening redness, swelling, and pain on his R foot. Patient reports this has started over the last day. He denies trauma or stepping on something, he did notice some small drainage from the bottom of his R foot. He also reports subjective fever, mild chills, mild nausea. He denies abdominal pain, emesis, diarrhea. He has had no chest pain or palpitations. His left foot he denies problems with. In the ER, Xray showed possible osteo. CRP elevated at 3.5, ESR 65. Cr was around baseline at 1.93. Mild leukocytosis with WBC 13.5. Glucose was 426, without anion gap. He was admitted for antibiotics, presumed osteomyelitis. MRI was ordered prior to presumed need for orthopedic consultation. Discharge Providers Provider Date of admission: 08/16/23 11:59 Discharge Date: 08/17/23 Primary care physician: Toño Ovalles MD Consults: 08/17/23 08:15 Consult to Occupational Therapy Evaluate & Treat Comment: Physician Instructions: Evaluate and treat Consult to Physical Therapy Evaluate & Treat Comment: Physician Instructions: Evaluate and Treat Discharge provider: Fred Blue DO Summary Hospital Course Discharge Diagnosis: 1. R foot presumed osteomyelitis vs cellulitis 2. Diabetes mellitus type 2, insulin using 3. Hypertension, chronic, present on admission. Stable. 4. CKD stage III Hospital Course: 52-year-old male insulin-dependent diabetic with chronic wounds on his lower extremities s/p L toe amputation at the end of june 2023, hypertension that is not well controlled, uncontrolled diabetes with gastroparesis who presented with worsening redness, swelling, and pain on his R foot. Initial Xray showed possible osteomyelitis, however MRI showed no osteomyelitis and no drainable fluid collection. Another possible consideration is that he had gout, but the following day after admission his erythema and swelling had completely resolved. Uric acid level was elevated at 8.7 but given his marked improvement the more likely etiology was felt to be a cellulitis of his foot. He had minimal pain, refused therapies, and wished to go home. His glucoses were not controlled, and further follow up with primary care is recommended as his A1c was >14%. Given improvement on cefepime, he was disharged home on oral levofloxacin for possible pseudomonal coverage. Levofloxacin is dosed every 48 hours based on his renal function, and he should continue another 4 doses for completion of therapy. No other changes were recommended at this time to his home medicaitons. Time Spent with Patient Time spent: Greater than 30 minutes Exam Vital Signs (past 8 hours): - 08/17/23 08:00 08/17/23 08:05 08/17/23 09:00 Temperature 98.0 F Pulse Rate 80 91 H Respiratory Rate 16 Blood Pressure 117/95 H 193/116 H 117/85 Pulse Oximetry 97 Oxygen Delivery Method 08/17/23 09:00 08/17/23 13:00 08/17/23 13:00 Temperature 98.5 F Pulse Rate 79 Respiratory Rate 16 Blood Pressure 141/86 H Pulse Oximetry 96 99 95 Oxygen Delivery Method Room Air Room Air Oxygen Delivery Method Room Air Oxygen Flow Rate 0 Narrative Exam Narrative: Gen: mildly ill appearing obese male, no acute distress CV: RRR no m/r/g Pulm: CTA b/l Abd: S NT ND Ext: non-pitting edema b/l LE. L foot bandages c/d/i. R foot erythema has now completely resolved, minimal deep tenderness, no warmth. R foot was wrapped with dry dressings. Objective Labs 08/17/23 06:04 08/17/23 06:04 Labs: Laboratory Results - last 24 hr 08/16/23 08/17/23 16:55 06:04 WBC 7.8 RBC 3.73 L Hgb 10.4 L Hct 30.5 L MCV 81.8 MCH 28.0 MCHC 34.2 RDW 14.1 Plt Count 185 Neut % (Auto) 73.9 Lymph % (Auto) 16.0 L [place] % (Auto) 9.2 Eos % (Auto) 0.4 L Baso % (Auto) 0.5 Neut # (Auto) 5700 Lymph # (Auto) 1200 [place] # (Auto) 700 Eos # (Auto) 0 Baso # (Auto) 0 Sodium 135 L Potassium 3.8 Chloride 106 Carbon Dioxide 26 BUN 21 H Creatinine 1.80 H Estimated GFR 44 L BUN/Creatinine Ratio 11.7 Glucose 302 H D Hemoglobin A1c > 14.0 H Lactate 1.3 Uric Acid 8.7 H Calcium 8.1 L Magnesium 1.8 Total Bilirubin 0.8 AST 27 ALT 20 Alkaline Phosphatase 60 Total Protein 6.9 Albumin 3.2 L Globulin 3.7 Albumin/Globulin Ratio 0.9 L PFSH Medical History COVID Hypertension Ulcer of right leg Congestive heart failure Diabetes mellitus Ulcer of left lower leg Surgical History History of foot surgery Family History Father Myocardial infarction Mother Diabetes mellitus Brother Diabetes mellitus Social History household members: spouse and children Smoking Status: Former smoker alcohol intake: never Discharge Plan Discharge Plan Patient Disposition: Home Provider Discharge Comment: You were admitted to the hospital with a right foot cellulitis. MRI negative. Improved with antibiotics. Continue antibiotic based on previous skin infections for another 4 doses (take every other day). Follow up with PCP for continued adjustment of diabetes medications and control. Discharge orders & Medications Prescriptions: New levofloxacin 750 mg tablet 750 mg PO Q48H 8 Days Qty: 4 0RF Continued metformin 500 mg Tablet 500 mg PO BID amlodipine 10 mg Tablet 10 mg PO DAILY lisinopril 40 mg Tablet 40 mg PO DAILY carvedilol 25 mg Tablet 25 mg PO BIDWM Qty: 30 0RF chlorthalidone 25 mg tablet 25 mg PO DAILY Qty: 30 0RF insulin lispro [Humalog KwikPen Insulin] 100 unit/mL insulin pen 12 - 15 unit SUBCUT TID Patient Comments: [NO ORIGINAL SIG] Follow up/Referrals: Toño Ovalles MD [Primary Care Provider] - Diet/Activity/Treatments Diet: Diet as Tolerated and Carb-consistent/Diabetic Activity: As tolerated, no restrictions Visit Report/Discharge Packet Stand Alone Forms: Patient Portal/API, Stroke Signs & Symptoms Discharge Data Primary Care Provider: Toño Ovalles
--- NOTE | 2023-08-17 14:58 | PC.NURSE ---
Addendum entered by Nazia Mendoza R.N. 08/17/23 15:38: left foot post op ampu of toe CDI Right foot dsg w/cellulitis CDI Pt escorted by staff via W/C to waiting vehicle D/C in stable condition, Original Note: Pt resting at intervals. SBA to BR Left foot dsg CDI. CBG AC = 284 & 372 before lunch; med w/ S/S as per orders. SL intact/patent. D/C orders received. Call light w/in reach. Pt calls appropriately for needs. Will D/C this afternoon
== END 2023-08-17 15:35 | disposition home or self-care (01) | DRG 638 ==
LOC: ED 11:42 → AC 12:01
PROVIDERS: Admitting Provider Internal Medicine; Emergency Provider Emergency Medicine; PCP Family Medicine; Referring Provider Emergency Medicine; Visit Provider Internal Medicine
DX: E11.69 Type 2 diabetes mellitus with other specified complication (principal); L03.115 Cellulitis of right lower limb; M86.171 Other acute osteomyelitis, right ankle and foot; E11.22 Type 2 diabetes mellitus with diabetic chronic kidney disease; I12.9 Hypertensive chronic kidney disease with stage 1 through stage 4 chronic kidney disease, or unspecified chronic kidney disease; N18.30 Chronic kidney disease, stage 3 unspecified; Z79.84 Long term (current) use of oral hypoglycemic drugs; Z79.4 Long term (current) use of insulin; Z87.891 Personal history of nicotine dependence
CPT/HCPCS: 36415; 71045; 73630; 73720; 80053; 82009; 82550; 82805; 82962; 83036; 83605; 83735; 84484; 84550; 85025; 85651; 86140; 87040; 87070; 87075; 87205; 93005; 96365; 96375; 97116; 97161; 99284; J0692; J1650; J1815

== ENCOUNTER 2024-01-07 08:10 | Emergency (ER) | payer OTHER, SELFPAY ==
[2023-08-16 13:01] VITALS: BMI 41.8
[2024-01-07] VITALS (14 sets, daily range): BP systolic 138–205; BP diastolic 75–99; PULSE 82–89; RESP 18–20; TEMP 36.3; O2SAT 93–97; BMI 44.6
--- NOTE | 2024-01-07 08:43 | ED.WOUNDLAC ---
HPI - Wound/Laceration General Chief Complaint: Wound/Laceration Stated Complaint: ulcer L foot/infection Time Seen by Provider: 01/07/24 08:43 Source: patient, RN notes reviewed and old records reviewed Limitations: no limitations History of Present Illness HPI narrative: 53-year-old male history of insulin-dependent diabetic with chronic wounds in his left lower foot, hypertension, diabetic gastroparesis who presents with concern for infection of the wound with complaint of pain and some redness and mild swelling in the lateral mid foot wound of his left foot. Patient states he noticed some increased pain yesterday, took some Tylenol which was helpful. He states no fevers but has felt a little chilled generally unwell. States no chest pain or shortness of breath. He has had some nausea but no vomiting. States normal bowel movements, urination. He states the redness has not spread elsewhere. He has not had any new drainage. He states he does have an appointment tomorrow with wound care at [facility] he follows with regularly. His last appointment was a week ago Sunday. Patient is not currently on any antibiotics but did take some leftover antibiotics yesterday. Patient notes his blood sugar has been a little bit high, he relates this to cheating over Thanksgiving and having ?a really good Thanksgiving.? Patient states the wound at his 1st metatarsal has not been causing any increased pain or swelling he does not suspect that it infected. Patient states he takes insulin and medications for hypertension. Has had prior toe amputation with Dr. Aaron for osteomyelitis in the past. Denies any drug allergies. Former smoker, occasional alcohol, denies any recreational drugs. Related Data Home Medications Medication Instructions Recorded Confirmed amlodipine 10 mg tablet 10 mg PO DAILY 03/14/18 08/16/23 lisinopril 40 mg tablet 40 mg PO DAILY 03/14/18 08/17/23 metformin 500 mg tablet 500 mg PO BID 03/14/18 08/17/23 insulin lispro 100 unit/mL 12 - 15 unit SUBCUT TID 09/23/22 08/16/23 subcutaneous pen (Humalog KwikPen (U-100) Insulin) Previous Rx's Medication Instructions Recorded carvedilol 25 mg tablet 25 mg PO BIDWM #30 tabs 10/04/22 chlorthalidone 25 mg tablet 25 mg PO DAILY #30 tabs 10/04/22 levofloxacin 750 mg tablet 750 mg PO DAILY 10 days #10 tabs 01/07/24 ondansetron 4 mg disintegrating 4 mg PO Q6H PRN nausea and 01/07/24 tablet vomiting #5 tabs Allergies Allergy/AdvReac Type Severity Reaction Status Date / Time No Known Drug Allergies Allergy Verified 07/30/23 13:48 Review of Systems Review of Systems ROS Unobtainable: All systems reviewed & are unremarkable except as noted in HPI and below Patient History Medical History COVID Hypertension Ulcer of right leg Congestive heart failure Diabetes mellitus Ulcer of left lower leg Surgical History History of foot surgery Family History Father Myocardial infarction Mother Diabetes mellitus Brother Diabetes mellitus Social History household members: spouse and children Smoking Status: Former smoker alcohol intake: never Smoking Status: Former smoker tobacco type: cigarettes alcohol intake frequency: other Substance Use Type: does not use Exam Narrative Exam Narrative: GENERAL: Alert and oriented x three, male in mild distress HEENT: Head normocephalic, atraumatic, EOMI, pupils reactive, face symmetric, moist mucous membranes NECK: Supple, full range of motion CARDIOVASCULAR: Regular rate and rhythm without murmurs, rubs or gallops. RESPIRATORY: Breath sounds equal bilaterally, no wheezes rales or rhonchi. ABDOMEN: Soft, nontender. Normoactive bowel sounds all 4 quadrants. No guarding or rebound, rigidity, no mass : No CVA tenderness EXTREMITIES: Normal range of motion, no clubbing, no edema, patient's left foot he has wound at the base of the 1st metatarsal/1st toe that is clean dry there is a small amount of pink granulation tissue but no foul odor, there is a small amount of bright red blood when bandage was removed but looks very good, patient has wound on the lateral mid foot that is mostly intact but has some mild erythema, appears to be slightly swollen, the areas mildly tender to touch. There was no fluctuance or induration appreciated. Erythema is about 3 cm in circumference does not track over the dorsum of the foot or across the foot. Patient has had prior 4th left toe amputation through the MTP joint. Neurovascularly intact. Patient had arch support that was peeled back and replaced to evaluate the surrounding tissue as well. NEUROLOGICAL: Cranial nerves II through XII grossly intact. Moving all extremities SKIN: Warm, dry, no petechiae, see above. Initial Vital Signs Initial Vital Signs: Vital Signs Temperature 97.3 F L 01/07/24 08:17 Pulse Rate 88 01/07/24 08:17 Respiratory Rate 18 01/07/24 08:17 Blood Pressure 145/85 H 01/07/24 08:17 Pulse Oximetry 96 01/07/24 08:17 Oxygen Delivery Method Room Air 01/07/24 08:17 Course Orders Ordered: ED Orders 01/07/24 11:34 VBG [Venous Blood Gas] STAT 01/07/24 13:00 Venous Blood Gas Routine Discontinued Medications Sodium Chloride (Normal Saline 0.9%) 1,000 mls @ 1,000 mls/hr IV BOLUS ONE Stop: 01/07/24 12:30 Last Infusion: 01/07/24 12:22 Dose: Infused Documented By: Admin: 01/07/24 11:45 Dose: 1,000 mls/hr Documented By: VAMSHI Levofloxacin (Levofloxacin 250 Mg Tablet) 750 mg PO NOW ONE Stop: 01/07/24 08:57 Last Admin: 01/07/24 09:29 Dose: 750 mg Documented By: MARIANO Ondansetron HCl (Ondansetron 4 Mg/2 Ml Inj) 4 mg IV NOW ONE Stop: 01/07/24 11:31 Last Admin: 01/07/24 11:45 Dose: 4 mg Documented By: VAMSHI Vital Signs Vital signs: Vital Signs - 8 hr 01/07/24 11:00 01/07/24 11:43 01/07/24 11:44 Pulse Rate 85 87 87 Respiratory Rate Blood Pressure Pulse Oximetry 97 96 97 Oxygen Delivery Method 01/07/24 11:44 01/07/24 12:00 01/07/24 12:01 Pulse Rate 84 84 Respiratory Rate Blood Pressure 148/85 H Pulse Oximetry 94 94 Oxygen Delivery Method 01/07/24 12:01 01/07/24 12:30 01/07/24 13:00 Pulse Rate 83 85 Respiratory Rate Blood Pressure 138/75 Pulse Oximetry 93 95 Oxygen Delivery Method 01/07/24 13:00 01/07/24 13:33 Pulse Rate 85 Respiratory Rate 20 Blood Pressure 205/99 H 205/99 H Pulse Oximetry 95 Oxygen Delivery Method Room Air MDM - Wound/Laceration Lab Data 01/07/24 09:17 01/07/24 09:17 Labs: Lab Results 01/07/24 01/07/24 Range/Units 09:17 13:00 WBC 6.8 (4.5-11.0) X10^3/uL RBC 4.54 (4.5-5.9) X10^6/uL Hgb 12.3 L (13.5-17.5) g/dL Hct 37.3 L (41-53) % MCV 82.1 (80-100) fL MCH 27.2 (26-34) PG MCHC 33.1 (30-36) % RDW 14.5 (11.6-14.8) % Plt Count 224 (150-400) X10^3/uL Neut % (Auto) 84.2 H (50-75) % Lymph % (Auto) 11.2 L (25-40) % Edmunds % (Auto) 3.6 (3-14) % Eos % (Auto) 0.6 L (2-4) % Baso % (Auto) 0.4 (0-2) % Neut # (Auto) 5800 (1214-8948) /uL Lymph # (Auto) 800 L (4497-5727) /uL Edmunds # (Auto) 200 (0-900) /uL Eos # (Auto) 0 (0-450) /uL Baso # (Auto) 0 (0-100) /uL ESR 67 H (0-15) MM/HR VBG pH 7.40 (7.33-7.43) VBG pCO2 41.2 L (45-50) mmHg VBG pO2 49 H (35-45) mmHg VBG HCO3 25 (24-28) mmol/L VBG Total CO2 25 (24-29) mmol/L VBG O2 Saturation 84 H (70-75) % VBG Base Excess 0.2 (0-4) mmol/L Sodium 136 L (137-145) mmol/L Potassium 3.6 (3.4-5.1) mmol/L Chloride 102 (98-107) mmol/L Carbon Dioxide 26 (22-32) mmol/L BUN 24 H (9-20) mg/dL Creatinine 2.23 H (0.66-1.25) mg/dL Estimated GFR 34 L (>60) mL/min BUN/Creatinine Ratio 10.8 (6-22) Glucose 399 H (70-100) mg/dL Calcium 8.6 (8.4-10.2) mg/dL C-Reactive Protein 3.6 H (<1.0) mg/dL Procalcitonin 0.487 (<0.5) ng/mL Ketones 0.12 (<0.27) mmol/L MDM Narrative Medical decision making narrative: 53-year-old insulin-dependent diabetic male with known to chronic wounds on his left foot. The 1 closest to the base of the 1st toe or 1st metatarsal looks very good. The lateral mid foot does have little bit of erythema but is mostly closed without any drainage. Patient is little tender over that area. He was nontoxic appears well. Labs show white count of 6.8 hemoglobin of 12.3 consistent with priors most recent was 10.4 prior to that was 12.6. Platelets are 224. Sodium is 136 potassium 3.6 chloride 102 CO2 is 26 BUN 24 creatinine 2.23 patient's last was 1.8 in August and 1.9 prior to that, glucose is 399 similar to prior. CRP is 3.6 patient's CRP last was 3.5 before that was in the 5 and 6 range. ESR is 67 patient has been elevated hives 88 in 65 on past visits. VBG shows a pH of 7.39 with a pCO2 of 41 PO2 of 48 bicarb of 25. Patient is negative for ketones 0.12 seconds. X-ray, no periosteal reaction or osteolysis to suspect osteomyelitis 5th digits osteotomy amputation of 4th digit beyond the metatarsal head. No bony erosion. Patient was given dose of Levaquin based on his prior cultures in the EMR, patient grew Staphylococcus lugdunensis with resistance tetracycline from prior surgeries and episodes of osteomyelitis. Patient has follow up tomorrow with wound care already scheduled. Discussed with patient we will have him follow up tomorrow with wound care with strict return precautions. We will start oral antibiotic no clear signs of osteomyelitis on imaging although this is more of a screening exam ESR and CRP are elevated but not as high as past visits patient also has a little bit of a bump in his creatinine. Also encouraged patient to follow up with Dr. Aaron with orthopedic surgery. Spoke with Dr. Pimentel, institutional research coordinator for orthopedic surgery: Discussed we would like to help facilitate follow up with Orthopedic surgery. Patient threw up while going to the bathroom. Glucose was quite elevated was given 1L of fluid and Zofran. Had VBG and ketones added on. Afterwards on rechecked patient's glucose is 265 he was feeling much improved. He feels comfortable returning home reviewed his findings from today short term follow up tomorrow with the wound care. He states he is actually following with Orthopedic surgery but [facility] currently in his scheduled to see them shortly as well. Discussed return precautions. Discharge Plan Departure Patient Disposition: Home Clinical Impression: Elevated serum creatinine, Cellulitis of foot, left, Chronic wound of extremity Activity Restrictions/Additional Instructions: Follow up with your wound care appointment tomorrow for recheck. Should also follow up to have your creatinine or renal function rechecked as you are creatinine is 2.23 today. I did touch base with Orthopedic surgery on-call for Dr. Aaron, please call the office to set up follow up. Your imaging did not show any obvious bony changes you do have some elevation in your CRP and ESR. Take oral antibiotics until completed unless otherwise directed by your orthopedic surgeon or wound care. You can take Zofran 1 tablet every 6 hours as needed for nausea/vomiting. Prescription sent for antibiotics to [facility] Please return for fevers, if you are feeling increasingly worse, increasing pain, redness or swelling, new purulent drainage or other new or concerning changes. Prescriptions: New ondansetron 4 mg tablet,disintegrating 4 mg PO Q6H PRN (Reason: nausea and vomiting) Qty: 5 0RF levofloxacin 750 mg tablet 750 mg PO DAILY 10 Days Qty: 10 0RF No Action metformin 500 mg Tablet 500 mg PO BID amlodipine 10 mg Tablet 10 mg PO DAILY lisinopril 40 mg Tablet 40 mg PO DAILY carvedilol 25 mg Tablet 25 mg PO BIDWM Qty: 30 0RF chlorthalidone 25 mg tablet 25 mg PO DAILY Qty: 30 0RF insulin lispro [Humalog KwikPen Insulin] 100 unit/mL insulin pen 12 - 15 unit SUBCUT TID Patient Comments: [NO ORIGINAL SIG] Referrals: Sally Aaron MD [Physician] - Toño Ovalles MD [Primary Care Provider] - Stand Alone Forms: Patient Portal/API/Survey
--- NOTE | 2024-01-07 08:54 | DI.RAD.S_ITS ---
PROCEDURE: XR FOOT LT MIN 3V INDICATIONS: chronic wounds, wd base 1st toe lookgood, lat midfoot lilarya TECHNIQUE: 3 views of the foot were acquired. COMPARISON: Located Within [facility], CR, XR FOOT RT MIN 3V, 08/16/2023, 9:57. Located Within [facility], CR, XR FOOT LT MIN 3V, 07/04/2023, 9:36. FINDINGS: Bones: 5th digit osteotomy. Amputation of the 4th digit beyond the metatarsal head. No bony erosion. Soft tissues: No tibiotalar joint effusion. Achilles tendon appears normal. IMPRESSION: No periosteal reaction or osteolysis to suspect osteomyelitis. If there remains a high clinical suspicion for osteomyelitis, consider MRI imaging with and without contrast. Dictated by: Redd Murphy M.D. on 01/07/2024 at 9:41 Approved by: Redd Murphy M.D. on 01/07/2024 at 9:45
[2024-01-07] MEDS: levoFLOXacin 250 MG TABLET 750 MG PO (09:29)
[2024-01-07 09:30] LABS: Add Manual Diff / Slide Review NO; Basophils Absolute Auto 0 /uL (0-100); Basophils Percent Auto 0.4 % (0-2); Eosinophils Absolute Auto 0 /uL (0-450); Eosinophils Percent Auto 0.6 % (2-4); Hematocrit 37.3 % (41-53); Hemoglobin 12.3 g/dL (13.5-17.5); Lymphocytes Absolute Auto 800 /uL (1100-4500); Lymphocytes Percent Auto 11.2 % (25-40); Mean Corpuscular HGB Conc 33.1 % (30-36); Mean Corpuscular Hemoglobin 27.2 PG (26-34); Mean Corpuscular Volume 82.1 fL (80-100); Monocytes Absolute Auto 200 /uL (0-900); Monocytes Percent Auto 3.6 % (3-14); Neutrophils Absolute Auto 5800 /uL (1500-7000); Neutrophils Percent Auto 84.2 % (50-75); Platelet Count 224 X10^3/uL (150-400); Red Blood Cell Count 4.54 X10^6/uL (4.5-5.9); Red Cell Distribution Width 14.5 % (11.6-14.8); White Blood Cell Count 6.8 X10^3/uL (4.5-11.0)
[2024-01-07 09:43] LABS: BUN Creatinine Ratio 10.8 (6-22); Blood Urea Nitrogen 24 mg/dL (9-20); C-Reactive Protein Quant 3.6 mg/dL (<1.0); Calcium 8.6 mg/dL (8.4-10.2); Carbon Dioxide 26 mmol/L (22-32); Chloride 102 mmol/L (98-107); Estimated Glomerular Filt Rate 34 mL/min (>60); Glucose 399 mg/dL (70-100); HEMOLYSIS < 15 (0-50); Potassium 3.6 mmol/L (3.4-5.1); Sodium 136 mmol/L (137-145)
[2024-01-07 09:56] LABS: Procalcitonin 0.487 ng/mL (<0.5)
[2024-01-07 10:32] LABS: Erythrocyte Sedimentation Rate 67 MM/HR (0-15)
--- NOTE | 2024-01-07 11:23 | PC.NURSE ---
I applied nonadherant gauz to left foot wound wrapped with fluff and coban as previous dressing change.
[2024-01-07] MEDS: ONDANSETRON 4 MG/2 ML INJ IV (11:45)
[2024-01-07] MEDS: SODIUM CHLORIDE 0.9% 1,000 ML 1000 ML IV (11:45)
[2024-01-07 12:00] LABS: Ketones (Beta-Hydroxybutyrate) 0.12 mmol/L (<0.27)
[2024-01-07 13:03] LABS: Base Excess VBG 0.2 mmol/L (0-4); HCO3 VBG 25 mmol/L (24-28); Oxygen Saturation VBG 84 % (70-75); PCO2 VBG 41.2 mmHg (45-50); PO2 VBG 49 mmHg (35-45); Total CO2 VBG 25 mmol/L (24-29)
== END 2024-01-07 13:34 | disposition home or self-care (01) ==
PROVIDERS: Emergency Provider Emergency Medicine; PCP Family Medicine
DX: L03.116 Cellulitis of left lower limb (principal); R79.89 Other specified abnormal findings of blood chemistry; E11.621 Type 2 diabetes mellitus with foot ulcer; L97.529 Non-pressure chronic ulcer of other part of left foot with unspecified severity; Z79.4 Long term (current) use of insulin; Z79.84 Long term (current) use of oral hypoglycemic drugs
CPT/HCPCS: 36415; 73630; 80048; 82009; 82805; 82962; 84145; 85025; 85651; 86140; 87040; 96361; 96374; 99284; J2405

== ENCOUNTER 2024-02-23 06:04 | Emergency (ER) | payer OTHER, SELFPAY ==
[2023-08-16 13:01] VITALS: BMI 41.8
[2024-02-23] VITALS (39 sets, daily range): BP systolic 132–197; BP diastolic 84–133; PULSE 90–119; RESP 12–37; TEMP 31.8–37.1; O2SAT 84–99; BMI 43.6
--- NOTE | 2024-02-23 06:13 | EKG_ITS ---
[address] [address] Test Date: 2024-02-23 Pat Name: Curtis Mari Department: Room: Gender: Male [employer] Cutter: DEEPTHI AMOS : 1970 Requested By: Order Number: [id number] Reading MD: Curtis Hope MD Measurements Intervals Rowe Rate: 118 P: 58 MI: 158 QRS: 36 QRSD: 114 T: 54 QT: 340 QTc: 476 Interpretive Statements Sinus tachycardia with occasional premature ventricular complexes Possible Left atrial enlargement Electronically Signed On 02-23-2024 9:53:10 PST by Curtsi Hope MD
--- NOTE | 2024-02-23 06:13 | ED_ITS ---
HPI - SOB/Dyspnea <Bhavna Chen MD - Last Filed: 02/23/24 19:14> General Chief Complaint: Shortness of Breath/Dyspnea Stated Complaint: SOB Time Seen by Provider: 02/23/24 06:06 History of Present Illness HPI Narrative: 53-year-old male with history of very poorly controlled diabetes (A1C >14 in 08/2023), chronic kidney disease, chronic lower extremity wounds, hypertension, diabetic gastroparesis presents by private vehicle from home for 2 days rapidly worsening shortness of breath. Patient also reports history of congestive heart failure, but does not take diuretics. Patient states that this morning his shortness of breath markedly worsened and so he decided to come to the ED for evaluation. On evaluation patient notably dyspneic, sitting upright, speaking in 1-2 words at a time, and saturating 84% on room air. Denies use of home O2 Patient states he was told he had CHF over 10 years ago. He does not follow with a director plans and denies any recent echocardiogram Related Data Home Medications Medication Instructions Recorded Confirmed amlodipine 10 mg tablet 10 mg PO DAILY 03/14/18 08/16/23 lisinopril 40 mg tablet 40 mg PO DAILY 03/14/18 08/17/23 metformin 500 mg tablet 500 mg PO BID 03/14/18 08/17/23 insulin lispro 100 unit/mL 12 - 15 unit SUBCUT TID 09/23/22 08/16/23 subcutaneous pen (Humalog KwikPen (U-100) Insulin) Previous Rx's Medication Instructions Recorded carvedilol 25 mg tablet 25 mg PO BIDWM #30 tabs 10/04/22 chlorthalidone 25 mg tablet 25 mg PO DAILY #30 tabs 10/04/22 ondansetron 4 mg disintegrating 4 mg PO Q6H PRN nausea and 01/07/24 tablet vomiting #5 tabs Allergies Allergy/AdvReac Type Severity Reaction Status Date / Time No Known Drug Allergies Allergy Verified 07/30/23 13:48 Patient History <Bhavna Chen MD - Last Filed: 02/23/24 19:14> Medical History COVID Hypertension Ulcer of right leg Congestive heart failure Diabetes mellitus Ulcer of left lower leg Surgical History History of foot surgery Family History Father Myocardial infarction Mother Diabetes mellitus Brother Diabetes mellitus Social History household members: spouse and children Smoking Status: Former smoker alcohol intake: never Smoking Status: Former smoker tobacco type: cigarettes alcohol intake frequency: other Exam <Bhavna Chen MD - Last Filed: 02/23/24 19:14> Initial Vital Signs Initial Vital Signs: Vital Signs Temperature 98.8 F 02/23/24 06:11 Pulse Rate 119 H 02/23/24 06:11 Respiratory Rate 26 H 02/23/24 06:11 Blood Pressure 197/109 H 02/23/24 06:11 Pulse Oximetry 84 L 02/23/24 06:11 Oxygen Delivery Method Room Air 02/23/24 06:11 Const: Awake, alert, appears chronically unwell, significantly older than stated age Cardiac: Tachycardia, regular rhythm RESP: Tachypnea, decreased left-sided breath sounds, requesting to sit upright for comfort GI: Soft, nontender, nondistended MSK: No obvious edema, lower extremities wrapped in dressings Skin: Warm, Dry, intact, no rashes Neuro: AO x3, CN II-XII grossly intact, moves all extremities <Hue Tong MD - Last Filed: 02/23/24 09:58> Initial Vital Signs Initial Vital Signs: Vital Signs Temperature 98.8 F 02/23/24 06:11 Pulse Rate 119 H 02/23/24 06:11 Respiratory Rate 26 H 02/23/24 06:11 Blood Pressure 197/109 H 02/23/24 06:11 Pulse Oximetry 84 L 02/23/24 06:11 Oxygen Delivery Method Room Air 02/23/24 06:11 Course <Bhavna Chen MD - Last Filed: 02/23/24 19:14> Orders Ordered: Discontinued Medications Aspirin (Aspirin 81 Mg Chew Tab) 324 mg PO NOW ONE Stop: 02/23/24 07:23 Last Admin: 02/23/24 07:39 Dose: 324 mg Documented By: CTS Furosemide (Furosemide 40 Mg/4 Ml Vial) 40 mg IV NOW ONE Stop: 02/23/24 06:52 Last Admin: 02/23/24 06:54 Dose: 40 mg Documented By: FLORIN Heparin Sodium (Porcine) (Heparin 5,000 Unit/Ml Vial) 5,000 unit IV NOW ONE Stop: 02/23/24 07:44 Last Admin: 02/23/24 07:51 Dose: 5,000 unit Documented By: CTS Furosemide 80 mg/ Sodium (Chloride) 58 mls @ 116 mls/hr IV NOW ONE Stop: 02/23/24 07:23 Last Infusion: 02/23/24 08:13 Dose: Infused Documented By: Admin: 02/23/24 07:39 Dose: 116 mls/hr Documented By: CTS Nitroglycerin (Nitroglycerin) 50 mg in 250 mls @ 1.5 mls/hr IV TITRATE SASKIA; Protocol Last Titration: 02/23/24 10:12 Dose: 10 mcg/min, 3 mls/hr Documented By: Titration: 02/23/24 08:46 Dose: 10 mcg/min, 3 mls/hr Documented By: Admin: 02/23/24 07:40 Dose: 5 mcg/min, 1.5 mls/hr Documented By: CTS Heparin Sodium/Dextrose (Heparin Drip) 25,000 unit in 500 mls @ 34.057 mls/hr IV CONT SASKIA; Protocol Last Titration: 02/23/24 10:12 Dose: 12 units/kg/hr, 34.057 mls/hr Documented By: ELAINE Co-signed By: LETITIA Admin: 02/23/24 07:52 Dose: 12 units/kg/hr, 34.057 mls/hr Documented By: CTS Co-signed By: LETITIA(2) Ceftriaxone Sodium 2,000 mg/ (Sodium Chloride) 100 mls @ 200 mls/hr IV NOW ONE Stop: 02/23/24 08:17 Last Infusion: 02/23/24 09:21 Dose: Infused Documented By: Admin: 02/23/24 08:49 Dose: 200 mls/hr Documented By: RB Azithromycin 500 mg/ Dextrose 250 mls @ 250 mls/hr IV NOW ONE Stop: 02/23/24 08:17 Last Infusion: 02/23/24 10:13 Dose: 250 mls/hr Documented By: Admin: 02/23/24 09:22 Dose: 250 mls/hr Documented By: CTS Vital Signs Vital signs: Vital Signs - 8 hr 02/23/24 06:11 02/23/24 06:21 02/23/24 06:22 Temperature 98.8 F Pulse Rate 119 H 114 H Respiratory Rate 26 H Blood Pressure 197/109 H 190/110 H Pulse Oximetry 84 L 96 Oxygen Delivery Method Room Air Nasal Cannula Oxygen Flow Rate 5 Fraction of Inspired Oxygen 02/23/24 06:22 02/23/24 06:30 02/23/24 06:30 Temperature Pulse Rate 114 H 107 H Respiratory Rate Blood Pressure 183/114 H Pulse Oximetry 96 95 Oxygen Delivery Method Nasal Cannula Oxygen Flow Rate 5 Fraction of Inspired Oxygen 02/23/24 07:00 02/23/24 07:00 02/23/24 07:30 Temperature Pulse Rate 100 H 103 H Respiratory Rate Blood Pressure 158/90 H Pulse Oximetry 95 97 Oxygen Delivery Method Oxygen Flow Rate Fraction of Inspired Oxygen 02/23/24 07:35 02/23/24 07:40 02/23/24 07:40 Temperature Pulse Rate 96 H 100 H 101 H Respiratory Rate 21 20 Blood Pressure 158/90 H Pulse Oximetry 95 97 Oxygen Delivery Method Oxygen Flow Rate Fraction of Inspired Oxygen 02/23/24 07:45 02/23/24 07:50 02/23/24 07:50 Temperature Pulse Rate 103 H 100 H Respiratory Rate 22 21 Blood Pressure 185/110 H Pulse Oximetry 97 96 Oxygen Delivery Method Oxygen Flow Rate Fraction of Inspired Oxygen 02/23/24 07:50 02/23/24 07:55 02/23/24 07:55 Temperature Pulse Rate 98 H Respiratory Rate 18 Blood Pressure 185/111 H Pulse Oximetry 97 Oxygen Delivery Method Oxygen Flow Rate Fraction of Inspired Oxygen 30 02/23/24 08:00 02/23/24 08:00 02/23/24 08:05 Temperature Pulse Rate 97 H 98 H Respiratory Rate 21 21 Blood Pressure 148/98 H Pulse Oximetry 96 95 Oxygen Delivery Method Oxygen Flow Rate Fraction of Inspired Oxygen 02/23/24 08:05 02/23/24 08:10 02/23/24 08:10 Temperature Pulse Rate 96 H Respiratory Rate 21 Blood Pressure 143/85 H 145/86 H Pulse Oximetry 95 Oxygen Delivery Method Oxygen Flow Rate Fraction of Inspired Oxygen 02/23/24 08:15 02/23/24 08:15 02/23/24 08:20 Temperature Pulse Rate 95 H 94 H Respiratory Rate 21 21 Blood Pressure 132/86 Pulse Oximetry 95 95 Oxygen Delivery Method Oxygen Flow Rate Fraction of Inspired Oxygen 02/23/24 08:20 02/23/24 08:25 02/23/24 08:25 Temperature Pulse Rate 95 H Respiratory Rate 20 Blood Pressure 138/87 147/85 H Pulse Oximetry 95 Oxygen Delivery Method Oxygen Flow Rate Fraction of Inspired Oxygen 02/23/24 08:30 02/23/24 08:35 02/23/24 08:36 Temperature Pulse Rate 96 H 114 H Respiratory Rate 16 29 H Blood Pressure 173/130 H Pulse Oximetry 98 Oxygen Delivery Method Oxygen Flow Rate Fraction of Inspired Oxygen 02/23/24 08:36 02/23/24 08:40 02/23/24 08:40 Temperature Pulse Rate 114 H 100 H Respiratory Rate 37 H 16 Blood Pressure 192/133 H Pulse Oximetry 98 Oxygen Delivery Method Oxygen Flow Rate Fraction of Inspired Oxygen 02/23/24 08:45 02/23/24 08:45 02/23/24 08:50 Temperature Pulse Rate 95 H 94 H Respiratory Rate 19 20 Blood Pressure 192/105 H Pulse Oximetry 97 97 Oxygen Delivery Method Oxygen Flow Rate Fraction of Inspired Oxygen 02/23/24 08:50 02/23/24 08:55 02/23/24 08:55 Temperature Pulse Rate 95 H Respiratory Rate 16 Blood Pressure 171/96 H 154/84 H Pulse Oximetry 96 Oxygen Delivery Method Oxygen Flow Rate Fraction of Inspired Oxygen 02/23/24 09:00 02/23/24 09:00 02/23/24 09:05 Temperature Pulse Rate 95 H Respiratory Rate 20 Blood Pressure 155/89 H 141/91 H Pulse Oximetry 97 Oxygen Delivery Method Oxygen Flow Rate Fraction of Inspired Oxygen 02/23/24 09:05 02/23/24 09:10 02/23/24 09:10 Temperature Pulse Rate 93 H 92 H Respiratory Rate 19 18 Blood Pressure 145/90 H Pulse Oximetry 95 95 Oxygen Delivery Method Oxygen Flow Rate Fraction of Inspired Oxygen 02/23/24 09:15 02/23/24 09:15 02/23/24 09:20 Temperature Pulse Rate 92 H 92 H Respiratory Rate 19 20 Blood Pressure 151/94 H Pulse Oximetry 95 95 Oxygen Delivery Method Oxygen Flow Rate Fraction of Inspired Oxygen 02/23/24 09:20 02/23/24 09:25 02/23/24 09:25 Temperature Pulse Rate 93 H Respiratory Rate 16 Blood Pressure 145/91 H 140/89 Pulse Oximetry 97 Oxygen Delivery Method Oxygen Flow Rate Fraction of Inspired Oxygen <Hue Tong MD - Last Filed: 02/23/24 09:58> Orders Ordered: Discontinued Medications Aspirin (Aspirin 81 Mg Chew Tab) 324 mg PO NOW ONE Stop: 02/23/24 07:23 Last Admin: 02/23/24 07:39 Dose: 324 mg Documented By: ELAINE Furosemide (Furosemide 40 Mg/4 Ml Vial) 40 mg IV NOW ONE Stop: 02/23/24 06:52 Last Admin: 02/23/24 06:54 Dose: 40 mg Documented By: FLORIN Heparin Sodium (Porcine) (Heparin 5,000 Unit/Ml Vial) 5,000 unit IV NOW ONE Stop: 02/23/24 07:44 Last Admin: 02/23/24 07:51 Dose: 5,000 unit Documented By: ELAINE Furosemide 80 mg/ Sodium (Chloride) 58 mls @ 116 mls/hr IV NOW ONE Stop: 02/23/24 07:23 Last Infusion: 02/23/24 08:13 Dose: Infused Documented By: Admin: 02/23/24 07:39 Dose: 116 mls/hr Documented By: ELAINE Nitroglycerin (Nitroglycerin) 50 mg in 250 mls @ 1.5 mls/hr IV TITRATE SASKIA; Protocol Last Titration: 02/23/24 10:12 Dose: 10 mcg/min, 3 mls/hr Documented By: Titration: 02/23/24 08:46 Dose: 10 mcg/min, 3 mls/hr Documented By: Admin: 02/23/24 07:40 Dose: 5 mcg/min, 1.5 mls/hr Documented By: CTS Heparin Sodium/Dextrose (Heparin Drip) 25,000 unit in 500 mls @ 34.057 mls/hr IV CONT SASKIA; Protocol Last Titration: 02/23/24 10:12 Dose: 12 units/kg/hr, 34.057 mls/hr Documented By: ELAINE Co-signed By: LETITIA Admin: 02/23/24 07:52 Dose: 12 units/kg/hr, 34.057 mls/hr Documented By: ELAINE Co-signed By: LETITIA(2) Ceftriaxone Sodium 2,000 mg/ (Sodium Chloride) 100 mls @ 200 mls/hr IV NOW ONE Stop: 02/23/24 08:17 Last Infusion: 02/23/24 09:21 Dose: Infused Documented By: Admin: 02/23/24 08:49 Dose: 200 mls/hr Documented By: ADA Azithromycin 500 mg/ Dextrose 250 mls @ 250 mls/hr IV NOW ONE Stop: 02/23/24 08:17 Last Infusion: 02/23/24 10:13 Dose: 250 mls/hr Documented By: Admin: 02/23/24 09:22 Dose: 250 mls/hr Documented By: ELAINE Vital Signs Vital signs: Vital Signs - 8 hr 02/23/24 06:11 02/23/24 06:21 02/23/24 06:22 Temperature 98.8 F Pulse Rate 119 H 114 H Respiratory Rate 26 H Blood Pressure 197/109 H 190/110 H Pulse Oximetry 84 L 96 Oxygen Delivery Method Room Air Nasal Cannula Oxygen Flow Rate 5 Fraction of Inspired Oxygen 02/23/24 06:22 02/23/24 06:30 02/23/24 06:30 Temperature Pulse Rate 114 H 107 H Respiratory Rate Blood Pressure 183/114 H Pulse Oximetry 96 95 Oxygen Delivery Method Nasal Cannula Oxygen Flow Rate 5 Fraction of Inspired Oxygen 02/23/24 07:00 02/23/24 07:00 02/23/24 07:30 Temperature Pulse Rate 100 H 103 H Respiratory Rate Blood Pressure 158/90 H Pulse Oximetry 95 97 Oxygen Delivery Method Oxygen Flow Rate Fraction of Inspired Oxygen 02/23/24 07:35 02/23/24 07:40 02/23/24 07:40 Temperature Pulse Rate 96 H 100 H 101 H Respiratory Rate 21 20 Blood Pressure 158/90 H Pulse Oximetry 95 97 Oxygen Delivery Method Oxygen Flow Rate Fraction of Inspired Oxygen 02/23/24 07:45 02/23/24 07:50 02/23/24 07:50 Temperature Pulse Rate 103 H 100 H Respiratory Rate 22 21 Blood Pressure 185/110 H Pulse Oximetry 97 96 Oxygen Delivery Method Oxygen Flow Rate Fraction of Inspired Oxygen 02/23/24 07:50 02/23/24 07:55 02/23/24 07:55 Temperature Pulse Rate 98 H Respiratory Rate 18 Blood Pressure 185/111 H Pulse Oximetry 97 Oxygen Delivery Method Oxygen Flow Rate Fraction of Inspired Oxygen 30 02/23/24 08:00 02/23/24 08:00 02/23/24 08:05 Temperature Pulse Rate 97 H 98 H Respiratory Rate 21 21 Blood Pressure 148/98 H Pulse Oximetry 96 95 Oxygen Delivery Method Oxygen Flow Rate Fraction of Inspired Oxygen 02/23/24 08:05 02/23/24 08:10 02/23/24 08:10 Temperature Pulse Rate 96 H Respiratory Rate 21 Blood Pressure 143/85 H 145/86 H Pulse Oximetry 95 Oxygen Delivery Method Oxygen Flow Rate Fraction of Inspired Oxygen 02/23/24 08:15 02/23/24 08:15 02/23/24 08:20 Temperature Pulse Rate 95 H 94 H Respiratory Rate 21 21 Blood Pressure 132/86 Pulse Oximetry 95 95 Oxygen Delivery Method Oxygen Flow Rate Fraction of Inspired Oxygen 02/23/24 08:20 02/23/24 08:25 02/23/24 08:25 Temperature Pulse Rate 95 H Respiratory Rate 20 Blood Pressure 138/87 147/85 H Pulse Oximetry 95 Oxygen Delivery Method Oxygen Flow Rate Fraction of Inspired Oxygen 02/23/24 08:30 02/23/24 08:35 02/23/24 08:36 Temperature Pulse Rate 96 H 114 H Respiratory Rate 16 29 H Blood Pressure 173/130 H Pulse Oximetry 98 Oxygen Delivery Method Oxygen Flow Rate Fraction of Inspired Oxygen 02/23/24 08:36 02/23/24 08:40 02/23/24 08:40 Temperature Pulse Rate 114 H 100 H Respiratory Rate 37 H 16 Blood Pressure 192/133 H Pulse Oximetry 98 Oxygen Delivery Method Oxygen Flow Rate Fraction of Inspired Oxygen 02/23/24 08:45 02/23/24 08:45 02/23/24 08:50 Temperature Pulse Rate 95 H 94 H Respiratory Rate 19 20 Blood Pressure 192/105 H Pulse Oximetry 97 97 Oxygen Delivery Method Oxygen Flow Rate Fraction of Inspired Oxygen 02/23/24 08:50 02/23/24 08:55 02/23/24 08:55 Temperature Pulse Rate 95 H Respiratory Rate 16 Blood Pressure 171/96 H 154/84 H Pulse Oximetry 96 Oxygen Delivery Method Oxygen Flow Rate Fraction of Inspired Oxygen 02/23/24 09:00 02/23/24 09:00 02/23/24 09:05 Temperature Pulse Rate 95 H Respiratory Rate 20 Blood Pressure 155/89 H 141/91 H Pulse Oximetry 97 Oxygen Delivery Method Oxygen Flow Rate Fraction of Inspired Oxygen 02/23/24 09:05 02/23/24 09:10 02/23/24 09:10 Temperature Pulse Rate 93 H 92 H Respiratory Rate 19 18 Blood Pressure 145/90 H Pulse Oximetry 95 95 Oxygen Delivery Method Oxygen Flow Rate Fraction of Inspired Oxygen 02/23/24 09:15 02/23/24 09:15 02/23/24 09:20 Temperature Pulse Rate 92 H 92 H Respiratory Rate 19 20 Blood Pressure 151/94 H Pulse Oximetry 95 95 Oxygen Delivery Method Oxygen Flow Rate Fraction of Inspired Oxygen 02/23/24 09:20 02/23/24 09:25 02/23/24 09:25 Temperature Pulse Rate 93 H Respiratory Rate 16 Blood Pressure 145/91 H 140/89 Pulse Oximetry 97 Oxygen Delivery Method Oxygen Flow Rate Fraction of Inspired Oxygen MDM - SOB/Dyspnea <Bhavna Chen MD - Last Filed: 02/23/24 19:14> Differential Diagnosis Differential diagnosis: Likely acute exacerbation of chronic obstructive airways disease, congestive heart failure and community acquired pneumonia Lab Data 02/23/24 06:20 02/23/24 06:20 Labs: Lab Results 02/23/24 02/23/24 02/23/24 Range/Units 06:20 06:32 08:09 WBC 12.4 H (4.5-11.0) X10^3/uL RBC 4.63 (4.5-5.9) X10^6/uL Hgb 12.3 L (13.5-17.5) g/dL Hct 37.9 L (41-53) % MCV 81.8 (80-100) fL MCH 26.6 (26-34) PG MCHC 32.5 (30-36) % RDW 14.1 (11.6-14.8) % Plt Count 369 (150-400) X10^3/uL Neut % (Auto) 74.6 (50-75) % Lymph % (Auto) 16.0 L (25-40) % [place] % (Auto) 6.5 (3-14) % Eos % (Auto) 2.0 (2-4) % Baso % (Auto) 0.9 (0-2) % Neut # (Auto) 9200 H (8008-5843) /uL Lymph # (Auto) 2000 (0001-2389) /uL [place] # (Auto) 800 (0-900) /uL Eos # (Auto) 200 (0-450) /uL Baso # (Auto) 100 (0-100) /uL PT 12.2 (9.4-12.5) SECONDS INR 1.1 (0.9-1.3) VBG pH (7.33-7.43) VBG pCO2 (45-50) mmHg VBG pO2 (35-45) mmHg VBG HCO3 (24-28) mmol/L VBG Total CO2 (24-29) mmol/L VBG O2 Saturation (70-75) % VBG Base Excess (0-4) mmol/L FiO2 % % Sodium 135 L (137-145) mmol/L Potassium 3.7 (3.4-5.1) mmol/L Chloride 103 (98-107) mmol/L Carbon Dioxide 25 (22-32) mmol/L BUN 27 H (9-20) mg/dL Creatinine 2.38 H (0.66-1.25) mg/dL Estimated GFR 32 L (>60) mL/min BUN/Creatinine Ratio 11.3 (6-22) Glucose 288 H (70-100) mg/dL Lactate (0.7-2.1) mmol/L Calcium 8.4 (8.4-10.2) mg/dL Magnesium 1.7 (1.6-2.3) mg/dL Total Bilirubin 0.8 (0.2-1.3) mg/dL AST 31 (17-59) IU/L ALT 20 (<50) IU/L Alkaline Phosphatase 78 (38-126) U/L Total Creatine Kinase 202 H (55-170) U/L Troponin I 0.107 H 0.208 H* (0.01-0.034) ng/mL NT-Pro-B Natriuret Pep 6450 H (<125) pg/mL Total Protein 8.3 H (6.3-8.2) g/dL Albumin 3.7 (3.5-5.0) g/dL Globulin 4.6 H (1.7-4.1) g/dL Albumin/Globulin Ratio 0.8 L (1.0-2.8) Chlamy pneumoniae PCR Not detected (Not Detect) Adenovirus (PCR) Not detected (Not Detect) B. pertussis DNA (PCR) Not detected (Not Detect) B.parapertussis DNA PCR Not detected (Not Detecte) Coronavirus OC43 (PCR) Not detected (Not Detect) Coronavirus HKU1 (PCR) Not detected (Not Detect) Coronavirus 229E (PCR) Not detected (Not Detect) SARS-CoV-2 (PCR) Not detected (Not Detecte) Coronavirus NL63 (PCR) Not detected (Not Detect) Human Metapneumovir PCR Not detected (Not Detect) Influenza Type A (PCR) Not detected (Not Detect) Influenza Type B (PCR) Not detected (Not Detect) M. pneumoniae (PCR) Not detected (Not Detect) Parainfluenza 1 (PCR) Not detected (Not Detect) Parainfluenza 2 (PCR) Not detected (Not Detect) Parainfluenza 3 (PCR) Not detected (Not Detect) Parainfluenza 4 (PCR) Not detected (Not Detect) RSV (PCR) Not detected (Not Detect) Entero/Rhino (PCR) Not detected (Not Detect) 02/23/24 02/23/24 Range/Units 08:26 09:05 WBC (4.5-11.0) X10^3/uL RBC (4.5-5.9) X10^6/uL Hgb (13.5-17.5) g/dL Hct (41-53) % MCV (80-100) fL MCH (26-34) PG MCHC (30-36) % RDW (11.6-14.8) % Plt Count (150-400) X10^3/uL Neut % (Auto) (50-75) % Lymph % (Auto) (25-40) % [place] % (Auto) (3-14) % Eos % (Auto) (2-4) % Baso % (Auto) (0-2) % Neut # (Auto) (5961-0456) /uL Lymph # (Auto) (7694-7654) /uL [place] # (Auto) (0-900) /uL Eos # (Auto) (0-450) /uL Baso # (Auto) (0-100) /uL PT (9.4-12.5) SECONDS INR (0.9-1.3) VBG pH 7.45 H (7.33-7.43) VBG pCO2 35.2 L (45-50) mmHg VBG pO2 53 H (35-45) mmHg VBG HCO3 25 (24-28) mmol/L VBG Total CO2 24 (24-29) mmol/L VBG O2 Saturation 89 H (70-75) % VBG Base Excess 1.0 (0-4) mmol/L FiO2 % 30 % % Sodium (137-145) mmol/L Potassium (3.4-5.1) mmol/L Chloride (98-107) mmol/L Carbon Dioxide (22-32) mmol/L BUN (9-20) mg/dL Creatinine (0.66-1.25) mg/dL Estimated GFR (>60) mL/min BUN/Creatinine Ratio (6-22) Glucose (70-100) mg/dL Lactate 1.0 (0.7-2.1) mmol/L Calcium (8.4-10.2) mg/dL Magnesium (1.6-2.3) mg/dL Total Bilirubin (0.2-1.3) mg/dL AST (17-59) IU/L ALT (<50) IU/L Alkaline Phosphatase (38-126) U/L Total Creatine Kinase (55-170) U/L Troponin I (0.01-0.034) ng/mL NT-Pro-B Natriuret Pep (<125) pg/mL Total Protein (6.3-8.2) g/dL Albumin (3.5-5.0) g/dL Globulin (1.7-4.1) g/dL Albumin/Globulin Ratio (1.0-2.8) Chlamy pneumoniae PCR (Not Detect) Adenovirus (PCR) (Not Detect) B. pertussis DNA (PCR) (Not Detect) B.parapertussis DNA PCR (Not Detecte) Coronavirus OC43 (PCR) (Not Detect) Coronavirus HKU1 (PCR) (Not Detect) Coronavirus 229E (PCR) (Not Detect) SARS-CoV-2 (PCR) (Not Detecte) Coronavirus NL63 (PCR) (Not Detect) Human Metapneumovir PCR (Not Detect) Influenza Type A (PCR) (Not Detect) Influenza Type B (PCR) (Not Detect) M. pneumoniae (PCR) (Not Detect) Parainfluenza 1 (PCR) (Not Detect) Parainfluenza 2 (PCR) (Not Detect) Parainfluenza 3 (PCR) (Not Detect) Parainfluenza 4 (PCR) (Not Detect) RSV (PCR) (Not Detect) Entero/Rhino (PCR) (Not Detect) ECG Data Interpretation: Sinus tachycardia with occasional PVCs. Normal ID. No ST T wave changes MDM Narrative Medical decision making narrative: Shortness of breath, reports history of CHF, but it was not followed by cardiology and has not appeared to have recent cardiac workup. Patient hypoxic on room air call placed on supplemental nasal cannula with improvement in saturations and with decreased work of breathing. EKG sinus tachycardia, no obvious ischemic findings. Preliminary review of chest x-ray seems to show volume overload. Small amount of IV Lasix ordered since patient is diuretic naive. Care of patient is signed out to Dr. Tong at [address] Tong, care assumed, chart reviewed, patient is independently evaluated CC: Acute dyspnea onset last night associated with a ?weird feeling? 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 He is frequently declined prior admission recommendations due to insurance issues and the to keep his business running Medical records reviewed: Podiatry notes from Dr. Guerrero, [facility] are reviewed. Curtis has been going regularly to wound care for a treatment of bilateral lower extremity wounds. He was seen yesterday this note is reviewed along with pictures. Wounds of the right foot have resolved. Left foot still has an ulceration under the great toe that is improving and was debrided yesterday. No acute concerns for infection. Wound care follow up scheduled for a week, wound dressings applied Differential considered: STEMI, Acute coronary syndrome, congestive heart failure, viral syndrome Exam documented above, pertinent findings include: Hypertensive, tachypneic and dyspneic more comfortable on oxygen, Patient is quite fatigued appearing, significant volume overload with puffiness around his eyes and crackles to mid lung guidry bilaterally. He has wound care dressings to both lower extremities placed yesterday with pictures seen on chart review and dressings not removed today. No abdominal pain Lab Test results independently reviewed as above. Pertinent findings: CBC shows leukocytosis at 12.4, chronic stable anemia, platelets are normal Chemistries are notable for worsening of his chronic kidney disease. Creatinine currently at 2.38, baseline has been in the 1.8-1.9 range. Liver studies were appropriate Initial troponin is 0.107 with total creatinine kinase at 202. Repeat trop increased to 0.2 BNP elevated at 6450 Respiratory panel is negative for acute viral etiology Independently reviewed EKG: Sinus tachycardia rate of [address] changes in most leads concern for global ischemia, no criteria for STEMI Imaging studies independently reviewed: Chest x-ray shows cardiomegaly, interstitial findings consistent with heart failure and right-sided patchy infiltrates concerning for developing pneumonia Consultations: Care is reviewed with education rep, Dr. Dudley, Corky Carrion. Care is accepted. Treatments: Patient was given aspirin, heparin is initiated with concerns for NSTEMI, nitro drip for heart failure and significant hypertension, BiPAP for respiratory support and assistance with heart failure. Given leukocytosis and increased patchy abnormalities in the right lung guidry, blood cultures, lactic acid, ceftriaxone, azithromycin are all ordered for presumed developing community-acquired pneumonia. Viral testing initiated. Re-evaluations: Patient is informed of findings, concern for NSTEMI, congestive heart failure, developing pneumonia and recommendation for hospitalization. At this point he is actually agreeable to hospitalization Discussion: 53-year-old gentleman with poorly controlled diabetes and multiple sequelae of that presents with acute dyspnea starting last night associated with ?a weird sensation in his chest?. Suspect he had a small cardiac event last night with subsequent worsening of his chronic congestive heart failure. We will go ahead and treat for community-acquired pneumonia its will need to be further evaluated. Started on heparin drip, nitro drip, BiPAP we will begin looking for critical care beds with availability Cardiac consultation. Patient has never had echocardiogram nor heart catheterization. Patient will be transferred to [facility] for definitive treatment and further diagnostics. <Hue Tong MD - Last Filed: 02/23/24 09:58> Lab Data Labs: Lab Results 02/23/24 02/23/24 02/23/24 Range/Units 06:20 06:32 08:09 WBC 12.4 H (4.5-11.0) X10^3/uL RBC 4.63 (4.5-5.9) X10^6/uL Hgb 12.3 L (13.5-17.5) g/dL Hct 37.9 L (41-53) % MCV 81.8 (80-100) fL MCH 26.6 (26-34) PG MCHC 32.5 (30-36) % RDW 14.1 (11.6-14.8) % Plt Count 369 (150-400) X10^3/uL Neut % (Auto) 74.6 (50-75) % Lymph % (Auto) 16.0 L (25-40) % [place] % (Auto) 6.5 (3-14) % Eos % (Auto) 2.0 (2-4) % Baso % (Auto) 0.9 (0-2) % Neut # (Auto) 9200 H (1673-0814) /uL Lymph # (Auto) 2000 (1762-0997) /uL [place] # (Auto) 800 (0-900) /uL Eos # (Auto) 200 (0-450) /uL Baso # (Auto) 100 (0-100) /uL PT 12.2 (9.4-12.5) SECONDS INR 1.1 (0.9-1.3) VBG pH (7.33-7.43) VBG pCO2 (45-50) mmHg VBG pO2 (35-45) mmHg VBG HCO3 (24-28) mmol/L VBG Total CO2 (24-29) mmol/L VBG O2 Saturation (70-75) % VBG Base Excess (0-4) mmol/L FiO2 % % Sodium 135 L (137-145) mmol/L Potassium 3.7 (3.4-5.1) mmol/L Chloride 103 (98-107) mmol/L Carbon Dioxide 25 (22-32) mmol/L BUN 27 H (9-20) mg/dL Creatinine 2.38 H (0.66-1.25) mg/dL Estimated GFR 32 L (>60) mL/min BUN/Creatinine Ratio 11.3 (6-22) Glucose 288 H (70-100) mg/dL Lactate (0.7-2.1) mmol/L Calcium 8.4 (8.4-10.2) mg/dL Magnesium 1.7 (1.6-2.3) mg/dL Total Bilirubin 0.8 (0.2-1.3) mg/dL AST 31 (17-59) IU/L ALT 20 (<50) IU/L Alkaline Phosphatase 78 (38-126) U/L Total Creatine Kinase 202 H (55-170) U/L Troponin I 0.107 H 0.208 H* (0.01-0.034) ng/mL NT-Pro-B Natriuret Pep 6450 H (<125) pg/mL Total Protein 8.3 H (6.3-8.2) g/dL Albumin 3.7 (3.5-5.0) g/dL Globulin 4.6 H (1.7-4.1) g/dL Albumin/Globulin Ratio 0.8 L (1.0-2.8) Chlamy pneumoniae PCR Not detected (Not Detect) Adenovirus (PCR) Not detected (Not Detect) B. pertussis DNA (PCR) Not detected (Not Detect) B.parapertussis DNA PCR Not detected (Not Detecte) Coronavirus OC43 (PCR) Not detected (Not Detect) Coronavirus HKU1 (PCR) Not detected (Not Detect) Coronavirus 229E (PCR) Not detected (Not Detect) SARS-CoV-2 (PCR) Not detected (Not Detecte) Coronavirus NL63 (PCR) Not detected (Not Detect) Human Metapneumovir PCR Not detected (Not Detect) Influenza Type A (PCR) Not detected (Not Detect) Influenza Type B (PCR) Not detected (Not Detect) M. pneumoniae (PCR) Not detected (Not Detect) Parainfluenza 1 (PCR) Not detected (Not Detect) Parainfluenza 2 (PCR) Not detected (Not Detect) Parainfluenza 3 (PCR) Not detected (Not Detect) Parainfluenza 4 (PCR) Not detected (Not Detect) RSV (PCR) Not detected (Not Detect) Entero/Rhino (PCR) Not detected (Not Detect) 02/23/24 02/23/24 Range/Units 08:26 09:05 WBC (4.5-11.0) X10^3/uL RBC (4.5-5.9) X10^6/uL Hgb (13.5-17.5) g/dL Hct (41-53) % MCV (80-100) fL MCH (26-34) PG MCHC (30-36) % RDW (11.6-14.8) % Plt Count (150-400) X10^3/uL Neut % (Auto) (50-75) % Lymph % (Auto) (25-40) % [place] % (Auto) (3-14) % Eos % (Auto) (2-4) % Baso % (Auto) (0-2) % Neut # (Auto) (9837-1478) /uL Lymph # (Auto) (8603-6933) /uL [place] # (Auto) (0-900) /uL Eos # (Auto) (0-450) /uL Baso # (Auto) (0-100) /uL PT (9.4-12.5) SECONDS INR (0.9-1.3) VBG pH 7.45 H (7.33-7.43) VBG pCO2 35.2 L (45-50) mmHg VBG pO2 53 H (35-45) mmHg VBG HCO3 25 (24-28) mmol/L VBG Total CO2 24 (24-29) mmol/L VBG O2 Saturation 89 H (70-75) % VBG Base Excess 1.0 (0-4) mmol/L FiO2 % 30 % % Sodium (137-145) mmol/L Potassium (3.4-5.1) mmol/L Chloride (98-107) mmol/L Carbon Dioxide (22-32) mmol/L BUN (9-20) mg/dL Creatinine (0.66-1.25) mg/dL Estimated GFR (>60) mL/min BUN/Creatinine Ratio (6-22) Glucose (70-100) mg/dL Lactate 1.0 (0.7-2.1) mmol/L Calcium (8.4-10.2) mg/dL Magnesium (1.6-2.3) mg/dL Total Bilirubin (0.2-1.3) mg/dL AST (17-59) IU/L ALT (<50) IU/L Alkaline Phosphatase (38-126) U/L Total Creatine Kinase (55-170) U/L Troponin I (0.01-0.034) ng/mL NT-Pro-B Natriuret Pep (<125) pg/mL Total Protein (6.3-8.2) g/dL Albumin (3.5-5.0) g/dL Globulin (1.7-4.1) g/dL Albumin/Globulin Ratio (1.0-2.8) Chlamy pneumoniae PCR (Not Detect) Adenovirus (PCR) (Not Detect) B. pertussis DNA (PCR) (Not Detect) B.parapertussis DNA PCR (Not Detecte) Coronavirus OC43 (PCR) (Not Detect) Coronavirus HKU1 (PCR) (Not Detect) Coronavirus 229E (PCR) (Not Detect) SARS-CoV-2 (PCR) (Not Detecte) Coronavirus NL63 (PCR) (Not Detect) Human Metapneumovir PCR (Not Detect) Influenza Type A (PCR) (Not Detect) Influenza Type B (PCR) (Not Detect) M. pneumoniae (PCR) (Not Detect) Parainfluenza 1 (PCR) (Not Detect) Parainfluenza 2 (PCR) (Not Detect) Parainfluenza 3 (PCR) (Not Detect) Parainfluenza 4 (PCR) (Not Detect) RSV (PCR) (Not Detect) Entero/Rhino (PCR) (Not Detect) MDM Narrative Medical decision making narrative: Shortness of breath, reports history of CHF, but it was not followed by cardiology and has not appeared to have recent cardiac workup. Patient hypoxic on room air call placed on supplemental nasal cannula with improvement in saturations and with decreased work of breathing. EKG sinus tachycardia, no obvious ischemic findings. 7am Dr Tong, [facility], chart reviewed, patient is independently evaluated CC: Acute dyspnea onset last night associated with a ?weird feeling? 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 He is frequently declined prior admission recommendations due to insurance issues and the to keep his business running Medical records reviewed: Podiatry notes from Dr. Guerrero [facility] are reviewed. Curtis has been going regularly to wound care for a treatment of bilateral lower extremity wounds. He was seen yesterday this note is reviewed along with pictures. Wounds of the right foot have resolved. Left foot still has an ulceration under the great toe that is improving and was debrided yesterday. No acute concerns for infection. Wound care follow up scheduled for a week, wound dressings applied Differential considered: STEMI, Acute coronary syndrome, congestive heart failure, viral syndrome Exam documented above, pertinent findings include: Hypertensive, tachypneic and dyspneic more comfortable on oxygen, Patient is quite fatigued appearing, significant volume overload with puffiness around his eyes and crackles to mid lung guidry bilaterally. He has wound care dressings to both lower extremities placed yesterday with pictures seen on chart review and dressings not removed today. No abdominal pain Lab Test results independently reviewed as above. Pertinent findings: CBC shows leukocytosis at 12.4, chronic stable anemia, platelets are normal Chemistries are notable for worsening of his chronic kidney disease. Creatinine currently at 2.38, baseline has been in the 1.8-1.9 range. Liver studies were appropriate Initial troponin is 0.107 with total creatinine kinase at 202. Repeat trop increased to 0.2 BNP elevated at 6450 Respiratory panel is negative for acute viral etiology Independently reviewed EKG: Sinus tachycardia rate of [address] changes in most leads concern for global ischemia, no criteria for STEMI Imaging studies independently reviewed: Chest x-ray shows cardiomegaly, interstitial findings consistent with heart failure and right-sided patchy infiltrates concerning for developing pneumonia Consultations: Care is reviewed with education rep, [facility]. Care is accepted. Treatments: Patient was given aspirin, heparin is initiated with concerns for NSTEMI, nitro drip for heart failure and significant hypertension, BiPAP for respiratory support and assistance with heart failure. Given leukocytosis and increased patchy abnormalities in the right lung guidry, blood cultures, lactic acid, ceftriaxone, azithromycin are all ordered for presumed developing community-acquired pneumonia. Viral testing initiated. Re-evaluations: Patient is informed of findings, concern for NSTEMI, congestive heart failure, developing pneumonia and recommendation for hospitalization. At this point he is actually agreeable to hospitalization Discussion: 53-year-old gentleman with poorly controlled diabetes and multiple sequelae of that presents with acute dyspnea starting last night associated with ?a weird sensation in his chest?. Suspect he had a small cardiac event last night with subsequent worsening of his chronic congestive heart failure. We will go ahead and treat for community-acquired pneumonia its will need to be further evaluated. Started on heparin drip, nitro drip, BiPAP we will begin looking for critical care beds with availability Cardiac consultation. Patient has never had echocardiogram nor heart catheterization. Patient will be transferred to [facility] for definitive treatment and further diagnostics. Critical Care Time <Hue Tong MD - Last Filed: 02/23/24 09:58> Critical Care Time Critical Care Time: Yes Total Critical Care Time: 39 Attestation: Critical care time is separate from other billable procedures. There is a high probability of a significant, sudden or life-threatening deterioration that requires my full and direct attention, intervention and personal management. This critical care time includes consultation with family and other consulting doctors, review of records, and interpretation of data from labs, EKGs and imaging as well as managements of NSTEMI, hypoxic respiratory failure, IV nitrites, IV heparin, BiPAP management. Discharge Plan Departure Patient Disposition: [facility] Clinical Impression: Non-ST elevation AL (NSTEMI), Acute kidney injury, Community acquired pneumonia Acute congestive heart failure Qualifiers: Heart failure type: unspecified Qualified Code(s): I50.9 - Heart failure, unspecified Hypoxic respiratory failure Qualifiers: Chronicity: acute on chronic Qualified Code(s): J96.21 - Acute and chronic respiratory failure with hypoxia Diabetic foot ulcer associated with secondary diabetes mellitus Qualifiers: Diabetic foot ulcer location: unspecified part of foot Laterality: left Non- pressure ulcer stage: unspecified non-pressure ulcer stage Qualified Code(s): E 08.621 - Diabetes mellitus due to underlying condition with foot ulcer Prescriptions: No Action metformin 500 mg Tablet 500 mg PO BID amlodipine 10 mg Tablet 10 mg PO DAILY lisinopril 40 mg Tablet 40 mg PO DAILY carvedilol 25 mg Tablet 25 mg PO BIDWM Qty: 30 0RF chlorthalidone 25 mg tablet 25 mg PO DAILY Qty: 30 0RF ondansetron 4 mg tablet,disintegrating 4 mg PO Q6H PRN (Reason: nausea and vomiting) Qty: 5 0RF insulin lispro [Humalog KwikPen Insulin] 100 unit/mL insulin pen 12 - 15 unit SUBCUT TID Patient Comments: [NO ORIGINAL SIG] Referrals: Toño Ovalles MD [Primary Care Provider] -
--- NOTE | 2024-02-23 06:13 | DI.RAD.S_ITS ---
PROCEDURE: XR CHEST 1V INDICATIONS: dyspnea, low O2 TECHNIQUE: One view of the chest was acquired. COMPARISON: [facility], CR, XR CHEST 1V, 08/16/2023, 9:57. [facility], CR, XR CHEST 1V, 08/25/2022, 16:09. FINDINGS: Surgical changes and devices: None. Lungs and pleura: Lungs are hypoinflated and there is diffuse vascular congestion. There is no focal consolidation or effusion. Mediastinum: Mediastinal contours appear normal. Heart size is normal. Bones and chest wall: No suspicious bony lesions. Overlying soft tissues appear unremarkable. IMPRESSION: Findings consistent with early/developing pulmonary edema. Dictated by: Kimberly Curran M.D. on 02/23/2024 at 8:48 Approved by: Kimberly Curran M.D. on 02/23/2024 at 8:50
[2024-02-23 06:31] LABS: Add Manual Diff / Slide Review NO; Basophils Absolute Auto 100 /uL (0-100); Basophils Percent Auto 0.9 % (0-2); Eosinophils Absolute Auto 200 /uL (0-450); Hematocrit 37.9 % (41-53); Hemoglobin 12.3 g/dL (13.5-17.5); Lymphocytes Absolute Auto 2000 /uL (1100-4500); Mean Corpuscular HGB Conc 32.5 % (30-36); Mean Corpuscular Hemoglobin 26.6 PG (26-34); Mean Corpuscular Volume 81.8 fL (80-100); Monocytes Absolute Auto 800 /uL (0-900); Monocytes Percent Auto 6.5 % (3-14); Neutrophils Absolute Auto 9200 /uL (1500-7000); Neutrophils Percent Auto 74.6 % (50-75); Platelet Count 369 X10^3/uL (150-400); Red Blood Cell Count 4.63 X10^6/uL (4.5-5.9); Red Cell Distribution Width 14.1 % (11.6-14.8); White Blood Cell Count 12.4 X10^3/uL (4.5-11.0)
[2024-02-23 06:37] LABS: INR 1.1 (0.9-1.3); Prothrombin Time 12.2 SECONDS (9.4-12.5)
[2024-02-23 06:42] LABS: Alanine Aminotransferase 20 IU/L (<50); Albumin 3.7 g/dL (3.5-5.0); Albumin Globulin Ratio 0.8 (1.0-2.8); Alkaline Phosphatase 78 U/L (38-126); Aspartate Aminotransferase 31 IU/L (17-59); BUN Creatinine Ratio 11.3 (6-22); Bilirubin Total 0.8 mg/dL (0.2-1.3); Blood Urea Nitrogen 27 mg/dL (9-20); Calcium 8.4 mg/dL (8.4-10.2); Carbon Dioxide 25 mmol/L (22-32); Chloride 103 mmol/L (98-107); Creatine Kinase 202 U/L (55-170); Estimated Glomerular Filt Rate 32 mL/min (>60); Globulin 4.6 g/dL (1.7-4.1); Glucose 288 mg/dL (70-100); HEMOLYSIS < 15 (0-50); Magnesium 1.7 mg/dL (1.6-2.3); Potassium 3.7 mmol/L (3.4-5.1); Sodium 135 mmol/L (137-145); Total Protein 8.3 g/dL (6.3-8.2)
[2024-02-23 06:54] LABS: NT-proBNP (BNP-Adult 18+) 6450 pg/mL (<125); Troponin I 0.107 ng/mL (0.01-0.034)
[2024-02-23] MEDS: FUROSEMIDE 40 MG/4 ML VIAL IV (06:54)
[2024-02-23 07:27] LABS: Adenovirus Not Detected (Not Detect); B. parapertussis Not Detected (Not Detecte); Bordetella pertussis Not Detected (Not Detect); Chlamydophila pneumoniae Not Detected (Not Detect); Coronavirus 229E Not Detected (Not Detect); Coronavirus HKU1 Not Detected (Not Detect); Coronavirus NL 63 Not Detected (Not Detect); Coronavirus OC43 Not Detected (Not Detect); Human Metapneumovirus Not Detected (Not Detect); Human Rhinovirus/Enterovirus Not Detected (Not Detect); Influenza A Not Detected (Not Detect); Influenza B Not Detected (Not Detect); Mycoplasma pneumoniae Not Detected (Not Detect); Parainfluenza Virus 1 Not Detected (Not Detect); Parainfluenza Virus 2 Not Detected (Not Detect); Parainfluenza Virus 3 Not Detected (Not Detect); Parainfluenza Virus 4 Not Detected (Not Detect); Respiratory Syncytial Virus Not Detected (Not Detect); SARS- CoV-2 Not Detected (Not Detecte)
[2024-02-23] MEDS: ASPIRIN 81 MG CHEW TAB 324 MG PO (07:39)
[2024-02-23] MEDS: FUROSEMIDE 80 MG in SODIUM CHLORIDE 0.9% 50 ML 116 MG IV (07:39)
[2024-02-23] MEDS: NITROGLYCERIN 50 MG/250 ML INFUS..BTL IV (07:40)
[2024-02-23] MEDS: HEPARIN 5,000 UNIT/ML VIAL 5000 UNIT IV (07:51)
[2024-02-23] MEDS: HEPARIN DRIP 25,000 UNIT/500 ML IV.SOLN 34.057 UNIT IV (07:52)
--- NOTE | 2024-02-23 08:20 | PC.NURSE ---
Bed search: [facility] @0752 spoke with Sloan - boarding 11 in ED CCU boarding. On waitlist. Face sheet @0809 [facility] @0753 spoke with Marbin - Might have a bed. Marbin will page and call back with [facility] [employer]. Sent Face sheet @0759 images @0752 Ammy David Brick @0812 spoke with Yuliya - pt placed on board/waitlist. Yuliya to fax abida auris screening form. Sent face sheet @0809 Images sent 0759.
[2024-02-23] MEDS: cefTRIAXone 2,000 MG in SODIUM CHLORIDE 0.9% 100 ML 200 MG IV (08:49)
[2024-02-23 08:53] LABS: Troponin I 0.208 ng/mL (0.01-0.034)
--- NOTE | 2024-02-23 08:54 | PC.NURSE ---
AM report received from RANI Dickerson. Pt resting in bed. drowsy. on 3L O2 via NC and tolerating well at 94-96%. speaking in short word sentences. AAOx3. Placed on equipment monitor phototypesetting. HR 98 NSR without ectopy. 2nd IV placed 18G in LAC. Orders for Bipap mainly for resp support secondary to fluid overload. Placed on 18/06 and tolerating well. Heparin and NTG gtt infusing per order. BC x 2 drawn and abx started. Some scant bleeding noted at LAC IV site and Dr Tong made aware. No new orders. Pt remains on heparin due to increasing troponins--0.107 and 0.208. VBG drawn for RT. awaiting results. assisted with urinal. 625ml out. appears comfortable at this time.
[2024-02-23 09:10] LABS: HCO3 VBG 25 mmol/L (24-28); Oxygen Saturation VBG 89 % (70-75); PCO2 VBG 35.2 mmHg (45-50); PO2 VBG 53 mmHg (35-45); Total CO2 VBG 24 mmol/L (24-29); pH VBG 7.45 (7.33-7.43)
[2024-02-23] MEDS: AZITHROMYCIN 500 MG in DEXTROSE 5% IN WATER 250 ML 250 MG IV (09:22)
--- NOTE | 2024-02-23 10:11 | PC.NURSE ---
Report given to RANI Reina Prov CCU. Pt transferring on bipap at this time with heparin and nitroglycerin infusing.
--- NOTE | 2024-02-23 10:13 | PC.NURSE ---
Made contact with family member, son Curtis. Advised pt is being transferred to [facility] for NSTEMI/CHF. No further questions. belongings in bag. pt's phone, keys, pants, jacket, diabetic shoes. No wallet noted.
== END 2024-02-23 10:23 | disposition short-term general hospital (02) ==
PROVIDERS: Emergency Medicine; Emergency Provider Emergency Medicine; PCP Family Medicine
DX: I21.4 Non-ST elevation (NSTEMI) myocardial infarction (principal); J18.9 Pneumonia, unspecified organism; N17.9 Acute kidney failure, unspecified; I50.9 Heart failure, unspecified; J96.21 Acute and chronic respiratory failure with hypoxia; E08.621 Diabetes mellitus due to underlying condition with foot ulcer
CPT/HCPCS: 36415; 71045; 80053; 82550; 82805; 83605; 83735; 83880; 84484; 85025; 85610; 87040; 87633; 93005; 93010; 96365; 96366; 96368; 96375; 99285; 99291; 99292; J0696; J1644; J1940

== ENCOUNTER 2024-05-08 22:47 | Emergency (ER) | payer OTHER, SELFPAY ==
[2023-08-16 13:01] VITALS: BMI 41.8
[2024-02-23 07:50] VITALS: PULSE 97; RESP 17; O2SAT 97
[2024-05-08 22:54] VITALS: BP 108/80; PULSE 118; RESP 22; TEMP 37.7; O2SAT 99; BMI 39.0
--- NOTE | 2024-05-08 22:57 | DI.RAD.S_ITS ---
PROCEDURE: XR CHEST 1V INDICATIONS: chest pain TECHNIQUE: One view of the chest was acquired. COMPARISON: [facility], CR, XR CHEST 1V, 02/23/2024, 6:29. FINDINGS: Surgical changes and devices: Median sternotomy changes. Lungs and pleura: Hazy alveolar opacity obscuring the left cardiac border. No significant effusion or pneumothorax. Mediastinum: Mediastinal contours appear normal. Heart size is mildly enlarged. Bones and chest wall: No suspicious bony lesions. Overlying soft tissues appear unremarkable. IMPRESSION: Hazy left medial lower lung, probably lingular opacity may be or atelectasis. Lungs are otherwise clear. Cardiomegaly without radiographic evidence of acute CHF Dictated by: Gricelda Gaytan M.D. on 05/08/2024 at 23:35 Approved by: Gricelda Gaytan M.D. on 05/08/2024 at 23:38
--- NOTE | 2024-05-08 23:07 | EKG_ITS ---
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
--- NOTE | 2024-05-08 23:19 | ED_ITS ---
HPI - Chest Pain General Chief Complaint: Chest Pain Stated Complaint: recent heart surgery, not feeling good Time Seen by Provider: 05/08/24 22:59 Source: patient, RN notes reviewed and old records reviewed Mode of arrival: Wheelchair Limitations: no limitations Limitations: no limitations History of Present Illness HPI narrative: 53-year-old male history of a insulin-dependent diabetes type 2, chronic kidney disease, chronic lower extremity wounds, hypertension, diabetic gastroparesis who had NSTEMI lung with congestive heart failure and pneumonia was transferred and ultimately had CABG discharge on the 17 of April. Patient states in the last day he started feeling very cruddy.States he was feeling achy felt like he might have had some fevers at home and some chills. He was had persistent chest pain since his surgery he states it is maybe a little bit worse today but he has also been coughing and having some dry heaves today which maybe worsening. He states no new shortness of breath. He states he has had dry heaves no liquid emesis. No abdominal pain. States he has had normal bowel movements no black or bloody stools. No dysuria urgency or frequency. No new swelling in his extremities. No new wounds on his legs that he was aware of. He states he was taking an anticoagulants but does not know what it is called is unsure of all of his medications has been taking them but has not had his evening meds. Denies any drug allergies. States his bypass as his only surgery. Denies tobacco, alcohol or recreational drugs. Dr. Ovalles is his primary care physician. He was supposed to follow up with Cardiology Dr. Roberts at [place]. Patient notes he has had some issues with transport Related Data Home Medications Medication Instructions Recorded Confirmed amlodipine 10 mg tablet 10 mg PO DAILY 03/14/18 08/16/23 lisinopril 40 mg tablet 40 mg PO DAILY 03/14/18 08/17/23 metformin 500 mg tablet 500 mg PO BID 03/14/18 08/17/23 insulin lispro 100 unit/mL 12 - 15 unit SUBCUT TID 09/23/22 08/16/23 subcutaneous pen (Humalog KwikPen (U-100) Insulin) Previous Rx's Medication Instructions Recorded carvedilol 25 mg tablet 25 mg PO BIDWM #30 tabs 10/04/22 chlorthalidone 25 mg tablet 25 mg PO DAILY #30 tabs 10/04/22 ondansetron 4 mg disintegrating 4 mg PO Q6H PRN nausea and 01/07/24 tablet vomiting #5 tabs Allergies Allergy/AdvReac Type Severity Reaction Status Date / Time No Known Drug Allergies Allergy Verified 07/30/23 13:48 Patient History Medical History COVID Hypertension Ulcer of right leg Congestive heart failure Diabetes mellitus Ulcer of left lower leg Surgical History History of foot surgery Family History Father Myocardial infarction Mother Diabetes mellitus Brother Diabetes mellitus Social History household members: spouse and children alcohol intake: never tobacco type: cigarettes alcohol intake frequency: other Exam Initial Vital Signs Initial Vital Signs: Vital Signs Temperature 99.9 F H 05/08/24 22:54 Pulse Rate 118 H 05/08/24 22:54 Respiratory Rate 22 05/08/24 22:54 Blood Pressure 108/80 05/08/24 22:54 Pulse Oximetry 99 05/08/24 22:54 Oxygen Delivery Method Room Air 05/08/24 22:54 Course Orders Ordered: ED Orders 05/08/24 22:57 XR chest 1V Stat EKG-12 Lead Stat 05/08/24 23:00 Covid-19 + FLU A/B + RSV - PCR Stat 05/08/24 23:15 Complete Blood Count AUTO DIFF Stat Comprehensive Metabolic Panel Stat Lactate (Lactic Acid) Stat Lipase Stat Magnesium Stat NT-proBNP (BNP-Adult 18+) Stat PTT Partial Thromboplastin Sonny Stat Prothrombin Time INR Stat Troponin & CK Cardiac Panel Stat 05/08/24 23:20 Blood Culture Stat Discontinued Medications Acetaminophen (Acetaminophen 325 Mg Tablet) 975 mg PO NOW ONE Stop: 05/08/24 23:32 Last Admin: 05/08/24 23:38 Dose: 975 mg Documented By: MILADYS Aspirin (Aspirin 81 Mg Chew Tab) 324 mg PO NOW ONE Stop: 05/08/24 22:58 Diphenhydramine HCl (Diphenhydramine 50 Mg/Ml Vial) 50 mg IV NOW ONE Stop: 05/08/24 23:25 Last Admin: 05/08/24 23:38 Dose: 50 mg Documented By: MILADYS Sodium Chloride (Normal Saline 0.9%) 500 mls @ 1,000 mls/hr IV BOLUS ONE Stop: 05/09/24 00:00 Last Infusion: 05/09/24 00:00 Dose: Infused Documented By: Admin: 05/08/24 23:39 Dose: 1,000 mls/hr Documented By: MILADYS Piperacillin Sod/Tazobactam (Sod 4.5 gm/ Sodium Chloride) 100 mls @ 200 mls/hr IV NOW ONE Stop: 05/09/24 00:29 Last Infusion: 05/09/24 02:59 Dose: Infused Documented By: Admin: 05/09/24 00:50 Dose: 200 mls/hr Documented By: MILADYS Vital Signs Vital signs: Vital Signs - 8 hr 05/08/24 22:54 05/09/24 00:22 05/09/24 00:30 Temperature 99.9 F H Pulse Rate 118 H 112 H 111 H Respiratory Rate 22 22 25 H Blood Pressure 108/80 Pulse Oximetry 99 96 97 Oxygen Delivery Method Room Air Room Air 05/09/24 00:30 05/09/24 01:00 05/09/24 01:00 Temperature Pulse Rate 107 H Respiratory Rate 24 Blood Pressure 159/93 H 133/82 Pulse Oximetry 96 Oxygen Delivery Method 05/09/24 01:30 05/09/24 01:30 05/09/24 02:00 Temperature Pulse Rate 104 H 101 H Respiratory Rate Blood Pressure 121/80 Pulse Oximetry 94 97 Oxygen Delivery Method Room Air 05/09/24 02:00 05/09/24 02:30 05/09/24 02:30 Temperature Pulse Rate 100 H Respiratory Rate Blood Pressure 112/75 105/59 L Pulse Oximetry 96 Oxygen Delivery Method Room Air 05/09/24 03:00 05/09/24 03:00 05/09/24 03:30 Temperature 98.7 F Pulse Rate 94 H 93 H Respiratory Rate 20 Blood Pressure 108/71 Pulse Oximetry 95 95 Oxygen Delivery Method 05/09/24 03:30 Temperature Pulse Rate Respiratory Rate Blood Pressure 122/78 Pulse Oximetry Oxygen Delivery Method MDM - Chest Pain Lab Data 05/08/24 23:15 05/08/24 23:15 Labs: Lab Results 05/08/24 05/08/24 Range/Units 23:00 23:15 WBC 14.5 H (4.5-11.0) X10^3/uL RBC 4.32 L (4.5-5.9) X10^6/uL Hgb 11.4 L (13.5-17.5) g/dL Hct 35.0 L (41-53) % MCV 81.0 (80-100) fL MCH 26.5 (26-34) PG MCHC 32.7 (30-36) % RDW 16.2 H (11.6-14.8) % Plt Count 413 H (150-400) X10^3/uL Neut % (Auto) 93.7 H (50-75) % Lymph % (Auto) 2.6 L (25-40) % [place] % (Auto) 3.1 (3-14) % Eos % (Auto) 0.2 L (2-4) % Baso % (Auto) 0.4 (0-2) % Neut # (Auto) 97544 H (9097-3514) /uL Lymph # (Auto) 400 L (8603-1349) /uL [place] # (Auto) 500 (0-900) /uL Eos # (Auto) 0 (0-450) /uL Baso # (Auto) 100 (0-100) /uL PT 13.7 H (9.4-12.5) SECONDS INR 1.2 (0.9-1.3) APTT 33 (25.1-36.5) SECONDS Sodium 137 (137-145) mmol/L Potassium 5.5 H (3.4-5.1) mmol/L Chloride 102 (98-107) mmol/L Carbon Dioxide 19 L (22-32) mmol/L BUN 60 H (9-20) mg/dL Creatinine 3.40 H (0.66-1.25) mg/dL Estimated GFR 21 L (>60) mL/min BUN/Creatinine Ratio 17.6 (6-22) Glucose 223 H (70-100) mg/dL Lactate 2.0 (0.7-2.1) mmol/L Calcium 9.3 (8.4-10.2) mg/dL Magnesium 1.7 (1.6-2.3) mg/dL Total Bilirubin 0.8 (0.2-1.3) mg/dL AST 34 (17-59) IU/L ALT 27 (<50) IU/L Alkaline Phosphatase 100 (38-126) U/L Total Creatine Kinase 50 L (55-170) U/L Troponin I 0.026 (0.01-0.034) ng/mL NT-Pro-B Natriuret Pep 1560 H (<125) pg/mL Total Protein 9.0 H (6.3-8.2) g/dL Albumin 4.4 (3.5-5.0) g/dL Globulin 4.6 H (1.7-4.1) g/dL Albumin/Globulin Ratio 1.0 (1.0-2.8) Lipase 243 (23-300) U/L SARS-CoV-2 (PCR) Negative (Negative) Influenza A (RT-PCR) Flu a negative (NEGATIVE) Influenza B (RT-PCR) Flu b negative (NEGATIVE) RSV (PCR) Negative (Negative) ECG Data Attestation: I personally reviewed and interpreted this ECG as follows: Prior ECG tracings: available for review Interpretation: Sinus tachycardia rate of 118 VT 128 QRS of 112 QTC of [address] has [address] depression in lateral leads V4 5 and [address] elevation appreciated. Patient's comparison is from prior to his CABG. [facility] Narrative Medical decision making narrative: EKG shows sinus tachycardia new ST depression in lateral leads. Labs show white count of 14.5 hemoglobin 11.4 platelets of 413, INR is 1.2 creatinine 3.4 potassium 5.5 no hemolysis noted, CO2 is 19 with a BUN of 60. Patient's last creatinine was 2.38 but that was before his cardiac intervention. Glucose is 223 troponin T is 0.026 with a BNP of 15 60 total protein and globulin are elevated at 9 4.6. Chest x-ray shows hazy left lower medial lung, probable lingular opacity. Lungs are otherwise clear cardiomegaly without evidence of acute CHF. COVID/influenza/RSV is negative Patient given 500 mL bolus, Benadryl has not antiemetics and Tylenol for pain. Patient was also given Zosyn for potential pneumonia. Workup shows possible pneumonia, patient's creatinine is also elevated from his last visit at 3.4 my do not have his records but he does not appear to be fluid overloaded on examination troponin is negative patient is slightly tachycardic afebrile was initially hypotensive but on repeats to give a 500 cc bolus. 53-year-old male proximally 2 she was very weeks post CABG presents with feeling cloudy patient has a cough he has had some nausea and dry heaves. He was tachycardic, T-max is 99? F workup shows what appears to be likely pneumonia also an MICHAEL records show in the hospital he was creatinine of 2.3-2.4. Patient's initial blood pressure had a systolic 100 although he has been a little bit more hypertensive since then. Because of his history of CHF I foods or caving cautiously. Patient was covered with the antibiotics. Based on patient's recent cardiac surgery as well as MICHAEL spoke with tele hospitalist Dr. Singh, about admission. He asks that we talk with [place] for transfer back this close post-CABG and does not wish to keep here at [facility] Dr. Glasgow, hospitalist at [place], accepts for transfer. Reviewed labs, MICHAEL with mild hyperkalemia, I tachycardia with a white count but afebrile no other signs of sepsis. Appears to have a pneumonia on chest x-ray, acute kidney injury with recent CABG [place]. Did not potassium is 5.5 patient did receive fluids. Discharge Plan Departure Patient Disposition: [facility] Clinical Impression: Pneumonia, MICHAEL (acute kidney injury), S/P CABG (coronary artery bypass graft) Prescriptions: No Action metformin 500 mg Tablet 500 mg PO BID amlodipine 10 mg Tablet 10 mg PO DAILY lisinopril 40 mg Tablet 40 mg PO DAILY carvedilol 25 mg Tablet 25 mg PO BIDWM Qty: 30 0RF chlorthalidone 25 mg tablet 25 mg PO DAILY Qty: 30 0RF ondansetron 4 mg tablet,disintegrating 4 mg PO Q6H PRN (Reason: nausea and vomiting) Qty: 5 0RF insulin lispro [Humalog KwikPen Insulin] 100 unit/mL insulin pen 12 - 15 unit SUBCUT TID Patient Comments: [NO ORIGINAL SIG] Referrals: Toño Ovalles MD [Primary Care Provider] -
[2024-05-08 23:23] LABS: Add Manual Diff / Slide Review NO; Basophils Absolute Auto 100 /uL (0-100); Basophils Percent Auto 0.4 % (0-2); Eosinophils Absolute Auto 0 /uL (0-450); Eosinophils Percent Auto 0.2 % (2-4); Hemoglobin 11.4 g/dL (13.5-17.5); Lymphocytes Absolute Auto 400 /uL (1100-4500); Lymphocytes Percent Auto 2.6 % (25-40); Mean Corpuscular HGB Conc 32.7 % (30-36); Mean Corpuscular Hemoglobin 26.5 PG (26-34); Monocytes Absolute Auto 500 /uL (0-900); Monocytes Percent Auto 3.1 % (3-14); Neutrophils Absolute Auto 13600 /uL (1500-7000); Neutrophils Percent Auto 93.7 % (50-75); Platelet Count 413 X10^3/uL (150-400); Red Blood Cell Count 4.32 X10^6/uL (4.5-5.9); Red Cell Distribution Width 16.2 % (11.6-14.8); White Blood Cell Count 14.5 X10^3/uL (4.5-11.0)
[2024-05-08 23:30] LABS: INR 1.2 (0.9-1.3); Prothrombin Time 13.7 SECONDS (9.4-12.5)
[2024-05-08 23:33] LABS: PTT Partial Thromboplastin Tim 33 SECONDS (25.1-36.5)
[2024-05-08] MEDS: diphenhydrAMINE 50 MG/ML VIAL IV (23:38)
[2024-05-08] MEDS: ACETAMINOPHEN 325 MG TABLET 975 MG PO (23:38)
[2024-05-08] MEDS: SODIUM CHLORIDE 0.9% 500 ML 1000 ML IV (23:39)
[2024-05-09] VITALS (8 sets, daily range): BP systolic 105–159; BP diastolic 59–93; PULSE 93–112; RESP 20–25; TEMP 37.1; O2SAT 94–97
[2024-05-09 00:06] LABS: Alanine Aminotransferase 27 IU/L (<50); Albumin 4.4 g/dL (3.5-5.0); Alkaline Phosphatase 100 U/L (38-126); Aspartate Aminotransferase 34 IU/L (17-59); BUN Creatinine Ratio 17.6 (6-22); Bilirubin Total 0.8 mg/dL (0.2-1.3); Blood Urea Nitrogen 60 mg/dL (9-20); Calcium 9.3 mg/dL (8.4-10.2); Carbon Dioxide 19 mmol/L (22-32); Chloride 102 mmol/L (98-107); Creatine Kinase 50 U/L (55-170); Estimated Glomerular Filt Rate 21 mL/min (>60); Globulin 4.6 g/dL (1.7-4.1); Glucose 223 mg/dL (70-100); HEMOLYSIS < 15 (0-50); Lipase 243 U/L (23-300); Magnesium 1.7 mg/dL (1.6-2.3); Potassium 5.5 mmol/L (3.4-5.1); Sodium 137 mmol/L (137-145)
[2024-05-09 00:11] LABS: Influenza A - CEPHEID Flu A NEGATIVE (NEGATIVE); Influenza B - CEPHEID Flu B NEGATIVE (NEGATIVE); Respiratory Syncytial Virus Negative (Negative)
[2024-05-09 00:12] LABS: COVID-19 CEPHEID 4-PLEX PCR Negative (Negative)
[2024-05-09 00:16] LABS: NT-proBNP (BNP-Adult 18+) 1560 pg/mL (<125); Troponin I 0.026 ng/mL (0.01-0.034)
[2024-05-09] MEDS: SODIUM ZIRCONIUM CYCLOSILICATE 10 GM POWD.PACK PO (00:49)
[2024-05-09] MEDS: PIPERACILLIN/TAZO 4.5 GM in SODIUM CHLORIDE 0.9% 100 ML IV (00:50)
[2024-05-09 21:58] LABS: Acinetobacter calcoa-baumannii Not Detected (Not Detect); Bacteroides fragilis Not Detected (Not Detect); Candida albicans Not Detected (Not Detect); Candida auris Not Detected (Not Detect); Candida glabrata Not Detected (Not Detect); Candida krusei Not Detected (Not Detect); Candida parapsilosis Not Detected (Not Detect); Candida tropicalis Not Detected (Not Detect); Cryptococcus neoformans/gatti Not Detected (Not Detect); Enterobacter cloacae complex Not Detected (Not Detect); Enterobacterales Not Detected (Not Detect); Enterococcus faecalis Not Detected (Not Detect); Enterococcus faecium Not Detected (Not Detect); Haemophilus influenzae Not Detected (Not Detect); Klebsiella aerogenes Not Detected (Not Detect); Listeria monocytogenes Not Detected (Not Detect); Neisseria meningitidis Not Detected (Not Detect); Proteus species Not Detected (Not Detect); Pseudomonas aeruginosa Not Detected (Not Detect); Salmonella species Not Detected (Not Detect); Serratia marcescens Not Detected (Not Detect); Staphylococcus epidermidis Not Detected (Not Detect); Staphylococcus lugdunensis Not Detected (Not Detect); Staphylococcus species Detected (Not Detect); Stenotrophomonas maltophilia Not Detected (Not Detect); Streptococcus agalactiae (Gr B Not Detected (Not Detect); Streptococcus pneumonia Not Detected (Not Detect); Streptococcus pyogenes (Gr A) Not Detected (Not Detect); Streptococcus species Not Detected (Not Detect); mecA/C and MREJ (MRSA) Resista Not Detected (Not Detect)
== END 2024-05-09 03:54 | disposition short-term general hospital (02) ==
PROVIDERS: Emergency Provider Emergency Medicine; PCP Family Medicine
DX: J18.9 Pneumonia, unspecified organism (principal); N17.9 Acute kidney failure, unspecified; R00.0 Tachycardia, unspecified; E11.9 Type 2 diabetes mellitus without complications; Z79.4 Long term (current) use of insulin; Z95.5 Presence of coronary angioplasty implant and graft
CPT/HCPCS: 0241U; 36415; 71045; 80053; 82550; 83605; 83690; 83735; 83880; 84484; 85025; 85610; 85730; 87040; 87077; 87147; 87154; 87186; 93005; 96365; 96366; 96375; 99284; J1200; J2543

== ENCOUNTER 2024-08-29 15:15 | Emergency (ER) | payer OTHER, SELFPAY ==
[2023-08-16 13:01] VITALS: BMI 41.8
[2024-02-23 07:50] VITALS: PULSE 97; RESP 17; O2SAT 97
[2024-08-29] VITALS (7 sets, daily range): BP systolic 150–175; BP diastolic 79–125; PULSE 61–84; RESP 20; TEMP 37; O2SAT 96–100; BMI 41.8
--- NOTE | 2024-08-29 18:39 | ED.WOUNDLAC ---
HPI - Wound/Laceration General Chief Complaint: Wound/Laceration Stated Complaint: infection on right leg? Time Seen by Provider: 08/29/24 18:39 Mode of arrival: Ambulatory History of Present Illness HPI narrative: 54-year-old male with history of diabetes, bilateral lower extremity chronic venous stasis and ulcers, followed by [facility] wound care clinic with next visit do Sunday09/01/2024 in 3 days. Concerned that he might be developing infection in the right garcia area with a sat shallow ulcer, has left foot ulcer that is currently dress that he feels he is doing well and does not want it to be undressed for examination at this time. He is taking a previous supply of oral Augmentin to start if he has concerns about infection, now day 2 of oral Augmentin treatment self administered. Some scant discharge on to overlying dressing. Denies sensation of fevers or chills. Has anterior discomfort. Related Data Home Medications ?Medication ?Instructions ?Recorded ?Confirmed amlodipine 10 mg tablet 10 mg PO DAILY 03/14/18 08/16/23 lisinopril 40 mg tablet 40 mg PO DAILY 03/14/18 08/17/23 metformin 500 mg tablet 500 mg PO BID 03/14/18 08/17/23 insulin lispro 100 unit/mL 12 - 15 unit SUBCUT TID 09/23/22 08/16/23 subcutaneous pen (Humalog KwikPen (U-100) Insulin) Previous Rx's ?Medication ?Instructions ?Recorded carvedilol 25 mg tablet 25 mg PO BIDWM #30 tabs 10/04/22 chlorthalidone 25 mg tablet 25 mg PO DAILY #30 tabs 10/04/22 ondansetron 4 mg disintegrating 4 mg PO Q6H PRN nausea and 01/07/24 tablet vomiting #5 tabs doxycycline hyclate 100 mg capsule 100 mg PO BID #14 caps 08/29/24 Allergies Allergy/AdvReac Type Severity Reaction Status Date / Time No Known Drug Allergies Allergy Verified 08/29/24 15:34 Patient History Medical History COVID Hypertension Ulcer of right leg Congestive heart failure Diabetes mellitus Ulcer of left lower leg Surgical History History of foot surgery Family History Father Myocardial infarction Mother Diabetes mellitus Brother Diabetes mellitus Social History household members: spouse and children Smoking Status: Former smoker alcohol intake: never Smoking Status: Former smoker tobacco type: cigarettes alcohol intake frequency: other Exam Narrative Exam Narrative: GENERAL: Well-developed patient, in mild distress. HEAD: Atraumatic. Normocephalic. EYES: Pupils equal round and reactive. Extraocular motions intact. No scleral icterus. No injection or drainage. ENT: Nose without bleeding, purulent drainage. Throat without erythema, tonsillar hypertrophy or exudate. Airway patent. NECK: Trachea midline. Non tender CARDIOVASCULAR: Regular rate and rhythm without murmurs, gallops, or rubs. RESPIRATORY: Clear to auscultation. Breath sounds equal bilaterally. No wheezes, rales, or rhonchi. GASTROINTESTINAL: Abdomen soft, non-tender, nondistended. EXTREMITIES: Left lower extremity dressed in compression sock and dressing, he does not want it removed for examination. Right lower extremity dressing and stockinette removed, venous stasis changes mid distal right foreleg, shallow scant ulcer 1 cm noted with serosanguineous fluid, surrounding erythema. BACK: Nontender without deformity or crepitance. No flank tenderness. BACK: Nontender without deformity or crepitance. No flank tenderness. NEURO: AOx3. Motor functions grossly nonfocal. SKIN: No rash or erythema of visible areas Initial Vital Signs Initial Vital Signs: Vital Signs Temperature 98.6 F 08/29/24 15:34 Pulse Rate 83 08/29/24 15:34 Respiratory Rate 20 08/29/24 15:34 Blood Pressure 150/84 H 08/29/24 15:34 Pulse Oximetry 97 08/29/24 15:34 Oxygen Delivery Method Room Air 08/29/24 15:34 Course Orders Ordered: ED Orders 08/29/24 19:00 CBC Auto Diff [Complete Blood Count AUTO DIFF] Stat CMP [Comprehensive Metabolic Panel] Stat Lactate (Lactic Acid) Stat Procalcitonin Stat Discontinued Medications Doxycycline Hyclate (Doxycycline Hyclate 100 Mg Tablet) 100 mg PO NOW ONE Stop: 08/29/24 18:47 Last Admin: 08/29/24 18:52 Dose: 100 mg Documented By: Vital Signs Vital signs: Vital Signs - 8 hr 08/29/24 15:34 08/29/24 18:08 08/29/24 18:11 Temperature 98.6 F Pulse Rate 83 62 Respiratory Rate 20 Blood Pressure 150/84 H 168/90 H Pulse Oximetry 97 100 Oxygen Delivery Method Room Air 08/29/24 18:11 08/29/24 18:30 08/29/24 18:30 Temperature Pulse Rate 79 84 Respiratory Rate Blood Pressure 160/97 H Pulse Oximetry 98 98 Oxygen Delivery Method Room Air 08/29/24 19:00 08/29/24 19:00 08/29/24 19:30 Temperature Pulse Rate 84 61 Respiratory Rate Blood Pressure 162/125 H Pulse Oximetry 99 96 Oxygen Delivery Method 08/29/24 19:31 08/29/24 19:31 Temperature Pulse Rate 73 Respiratory Rate Blood Pressure 175/79 H Pulse Oximetry 97 Oxygen Delivery Method MDM - Wound/Laceration Lab Data Attestation: I reviewed the patient's lab results. Lab results narrative: White blood cell count 42865, hemoglobin 12.6, platelets adequate. Glucose 198. BUN 37 with creatinine 2.61, prior creatinine even higher on last check. Serum CO2 23, electrolytes normal. Liver functions unremarkable. Lactate 1.0 normal. 08/29/24 19:00 08/29/24 19:00 Labs: Lab Results 08/29/24 08/29/24 Range/Units 17:53 19:00 WBC 10.7 (4.5-11.0) X10^3/uL RBC 5.01 (4.5-5.9) X10^6/uL Hgb 12.6 L (13.5-17.5) g/dL Hct 38.0 L (41-53) % MCV 75.8 L (80-100) fL MCH 25.1 L (26-34) PG MCHC 33.1 (30-36) % RDW 16.8 H (11.6-14.8) % Plt Count 274 (150-400) X10^3/uL Neut % (Auto) 75.1 H (50-75) % Lymph % (Auto) 15.2 L (25-40) % [place] % (Auto) 7.6 (3-14) % Eos % (Auto) 1.7 L (2-4) % Baso % (Auto) 0.4 (0-2) % Neut # (Auto) 8100 H (4923-7763) /uL Lymph # (Auto) 1600 (2866-4170) /uL [place] # (Auto) 800 (0-900) /uL Eos # (Auto) 200 (0-450) /uL Baso # (Auto) 0 (0-100) /uL Sodium 137 (137-145) mmol/L Potassium 4.0 (3.4-5.1) mmol/L Chloride 104 (98-107) mmol/L Carbon Dioxide 23 (22-32) mmol/L BUN 37 H (9-20) mg/dL Creatinine 2.61 H (0.66-1.25) mg/dL Estimated GFR 28 L (>60) mL/min BUN/Creatinine Ratio 14.2 (6-22) Glucose 198 H (70-99) mg/dL POC Whole Bld Glucose 212 H (70-99) mg/dL Lactate 1.0 (0.7-2.1) mmol/L Calcium 8.5 (8.4-10.2) mg/dL Total Bilirubin 1.0 (0.2-1.3) mg/dL AST 26 (17-59) IU/L ALT 18 (<50) IU/L Alkaline Phosphatase 80 (38-126) U/L Total Protein 8.1 (6.3-8.2) g/dL Albumin 3.8 (3.5-5.0) g/dL Globulin 4.3 H (1.7-4.1) g/dL Albumin/Globulin Ratio 0.9 L (1.0-2.8) Procalcitonin 0.153 (<0.5) ng/mL MDM Narrative Medical decision making narrative: 54-year-old male with ongoing wound care [facility] wound clinic, recent weeping right lower extremity wound, with dressing saturation, self started previous supply of oral Augmentin 2 days ago. No fever on triage. Labs sent. Lab data: White blood cell count 76542, hemoglobin 12.6, platelets adequate. Glucose 198. BUN 37 with creatinine 2.61, prior creatinine even higher. Serum CO2 23, electrolytes normal. Liver functions unremarkable. Lactate 1.0 normal. Procalcitonin not elevated. White blood cell count, lactate, procalcitonin all not elevated. We will hold on advanced imaging of the limb for now. Trial of outpatient antibiotics, we will add doxy for MRSA coverage. Continue Augmentin. Advised continuation of Augmentin for now, we will add doxycycline oral dose, 1st dose given, prescription sent to his pharmacy. Wound clinic evaluation next planned in 3 days [facility] on Sunday. Advised to continue his diabetes and blood pressure and other chronic medications. Advised to continue antibiotics through that visit. Recheck earlier if any change worsening symptoms or any concerns prior. Discharge Plan Departure Patient Disposition: Home Clinical Impression: Cellulitis of right lower leg Activity Restrictions/Additional Instructions: History of diabetes, shallow ulcer weeping wound to the right, self started previous supply of antibiotic Augmentin 2 days ago, some redness in that area with shallow ulceration. Inflammatory labs sent, which are normal today. No advanced imaging indicated today. We will add oral doxycycline antibiotic with 1st dose given in the emergency department, we will send prescription to your pharmacy for further course. Follow up with wound care clinic [facility] as scheduled already and Sunday in 3 days. Return earlier to this/nearest emergency department for any change worsening symptoms or any concerns prior. Prescriptions: New doxycycline hyclate 100 mg capsule 100 mg PO BID Qty: 14 0RF No Action metformin 500 mg Tablet 500 mg PO BID amlodipine 10 mg Tablet 10 mg PO DAILY lisinopril 40 mg Tablet 40 mg PO DAILY carvedilol 25 mg Tablet 25 mg PO BIDWM Qty: 30 0RF chlorthalidone 25 mg tablet 25 mg PO DAILY Qty: 30 0RF ondansetron 4 mg tablet,disintegrating 4 mg PO Q6H PRN (Reason: nausea and vomiting) Qty: 5 0RF insulin lispro [Humalog KwikPen Insulin] 100 unit/mL insulin pen 12 - 15 unit SUBCUT TID Patient Comments: [NO ORIGINAL SIG] Referrals: Toño Ovalles MD [Primary Care Provider, Family Practice] Stand Alone Forms: Patient Portal/API
[2024-08-29] MEDS: DOXYCYCLINE HYCLATE 100 MG TABLET PO (18:52)
[2024-08-29 19:07] LABS: Add Manual Diff / Slide Review NO; Hematocrit 38.0 % (41-53); Hemoglobin 12.6 g/dL (13.5-17.5); Lymphocytes Absolute Auto 1600 /uL (1100-4500); Mean Corpuscular HGB Conc 33.1 % (30-36); Mean Corpuscular Hemoglobin 25.1 PG (26-34); Mean Corpuscular Volume 75.8 fL (80-100); Platelet Count 274 X10^3/uL (150-400)
[2024-08-29 19:21] LABS: Alanine Aminotransferase 18 IU/L (<50); Albumin 3.8 g/dL (3.5-5.0); Albumin Globulin Ratio 0.9 (1.0-2.8); Alkaline Phosphatase 80 U/L (38-126); Blood Urea Nitrogen 37 mg/dL (9-20); Calcium 8.5 mg/dL (8.4-10.2); Carbon Dioxide 23 mmol/L (22-32); Chloride 104 mmol/L (98-107); Estimated Glomerular Filt Rate 28 mL/min (>60); Globulin 4.3 g/dL (1.7-4.1); Glucose 198 mg/dL (70-99); HEMOLYSIS < 15 (0-50); Potassium 4.0 mmol/L (3.4-5.1); Sodium 137 mmol/L (137-145); Total Protein 8.1 g/dL (6.3-8.2)
[2024-08-29 19:22] LABS: Lactate (Lactic Acid) 1.0 mmol/L (0.7-2.1)
[2024-08-29 19:39] LABS: Procalcitonin 0.153 ng/mL (<0.5)
== END 2024-08-29 20:18 | disposition home or self-care (01) ==
PROVIDERS: Emergency Provider Emergency Medicine; PCP Family Medicine
DX: L03.115 Cellulitis of right lower limb (principal)
CPT/HCPCS: 80053; 82962; 83605; 84145; 85025; 87070; 87075; 87205; 99283

== ENCOUNTER 2024-09-07 09:51 | Inpatient (IN) | payer OTHER, SELFPAY ==
[2023-08-16 13:01] VITALS: BMI 41.8
[2024-02-23 07:50] VITALS: PULSE 97; RESP 17; O2SAT 97
[2024-09-07] VITALS (27 sets, daily range): BP systolic 127–218; BP diastolic 58–101; PULSE 81–117; RESP 16–37; TEMP 36.4–38.7; O2SAT 87–99; BMI 40.4; BMI 42.7
--- NOTE | 2024-09-07 11:35 | DI.RAD.S_ITS ---
PROCEDURE: XR CHEST 1V INDICATIONS: suspected sepsis TECHNIQUE: One view of the chest was acquired. COMPARISON: [facility], CR, XR CHEST 1V, 08/16/2023, 9:57. [facility], CR, XR CHEST 1V, 02/23/2024, 6:29. [facility], CR, XR CHEST 1V, 05/08/2024, 23:01. FINDINGS: Surgical changes and devices: Sternotomy wires and mediastinal clips are seen. Lungs and pleura: Mild generalized interstitial prominence can be seen. No focal infiltrates are seen. No pneumothorax or pleural effusions are seen. Low lung volumes are noted. This causes a crowded appearance to the lung markings and limits evaluation. Mediastinum: Mediastinal contours appear normal. Heart size is normal. Bones and chest wall: No suspicious bony lesions. Age-appropriate bony degenerative changes are seen. Overlying soft tissues appear unremarkable. IMPRESSION: Interstitial prominence is seen throughout. The interstitial prominence is nonspecific, yet may be related to pulmonary edema. Please consider atypical infection, including viral pneumonia. Postoperative and degenerative changes are seen. Dictated by: Carlos Eduardo Barr M.D. on 09/07/2024 at 11:28 Approved by: Carlos Eduardo Barr M.D. on 09/07/2024 at 11:28
[2024-09-07 11:52] LABS: INR 1.2 (0.9-1.3); Prothrombin Time 14.0 SECONDS (9.4-12.5)
[2024-09-07 11:55] LABS: Alanine Aminotransferase 23 IU/L (<50); Albumin 3.8 g/dL (3.5-5.0); Albumin Globulin Ratio 0.8 (1.0-2.8); Alkaline Phosphatase 93 U/L (38-126); Blood Urea Nitrogen 37 mg/dL (9-20); Calcium 8.5 mg/dL (8.4-10.2); Carbon Dioxide 25 mmol/L (22-32); Chloride 105 mmol/L (98-107); Estimated Glomerular Filt Rate 26 mL/min (>60); Globulin 4.6 g/dL (1.7-4.1); Glucose 238 mg/dL (70-99); HEMOLYSIS < 15 (0-50); Lipase 78 U/L (23-300); PTT Partial Thromboplastin Tim 30 SECONDS (25.1-36.5); Potassium 4.3 mmol/L (3.4-5.1); Sodium 141 mmol/L (137-145); Total Protein 8.4 g/dL (6.3-8.2)
[2024-09-07 11:56] LABS: Creatine Kinase 173 U/L (55-170); Lactate (Lactic Acid) 1.7 mmol/L (0.7-2.1)
[2024-09-07 12:07] LABS: Add Manual Diff / Slide Review NO; Hematocrit 39.3 % (41-53); Hemoglobin 12.6 g/dL (13.5-17.5); Lymphocytes Absolute Auto 600 /uL (1100-4500); Mean Corpuscular HGB Conc 32.0 % (30-36); Mean Corpuscular Hemoglobin 24.3 PG (26-34); Mean Corpuscular Volume 76.0 fL (80-100); Platelet Count 262 X10^3/uL (150-400); Troponin I 0.073 ng/mL (0.01-0.034)
[2024-09-07 12:12] LABS: Procalcitonin 5.96 ng/mL (<0.5)
--- NOTE | 2024-09-07 13:11 | EKG_ITS ---
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
--- NOTE | 2024-09-07 13:42 | ED_ITS ---
HPI - Sepsis General Chief Complaint: Fever Mode of arrival: Ambulatory Source: patient Limitations: no limitations Evaluation Sepsis Screen: Possible Sepsis Risk Sepsis Infection Criteria Present: Suspected New Infection Narrative: 53-year-old male with history of very poorly controlled diabetes , chronic kidney disease, chronic lower extremity wounds, hypertension, diabetic gastroparesis presents by private vehicle from home for fever, chills, nausea and vomiting for the past 2 days. Patient History Medical History Congestive heart failure COVID Diabetes mellitus Hypertension Ulcer of left lower leg Ulcer of right leg Surgical History History of foot surgery Family History Father Myocardial infarction Mother Diabetes mellitus Brother Diabetes mellitus Social History household members: spouse and children alcohol intake: never tobacco type: cigarettes alcohol intake frequency: other Exam Narrative Exam Narrative: General: Patient appears to be in no acute distress, acting appropriately , mild pallor Head: normocephalic, atraumatic, HEENT: Pupils equal round reactive, eyes tracking well, neck supple, no JVD Heart: regular rate and rhythm, no murmurs, rubs, or gallops heard Lungs: clear to auscultation, no adventitious sounds Abdomen: soft , nontender, nondistended, positive bowel sounds Neurological: no focal neurological signs, moving all extremities well, alert and oriented x3, Psych: good judgment ,good insight, mood is normal. Initial Vital Signs Initial Vital Signs: Vital Signs Temperature 99.7 F H 09/07/24 10:20 Pulse Rate 107 H 09/07/24 10:20 Respiratory Rate 20 09/07/24 10:20 Blood Pressure 218/96 H 09/07/24 10:20 Pulse Oximetry 97 09/07/24 10:20 Oxygen Delivery Method Room Air 09/07/24 10:20 Course Course Course Narrative: We will do a septic workup for the patient. Orders Ordered: ED Orders 09/07/24 10:55 Complete Blood Count AUTO DIFF Stat Comprehensive Metabolic Panel Stat Lactate (Lactic Acid) Stat Lipase Stat PTT Partial Thromboplastin Sonny Stat Procalcitonin Stat Prothrombin Time INR Stat Troponin & CK Cardiac Panel Stat 09/07/24 11:12 Blood Culture Stat 09/07/24 11:35 XR chest 1V Stat EKG-12 Lead Stat RT Consult Eval and Treat NOW 09/07/24 13:24 Trop I [Troponin I] Stat 09/07/24 13:45 Covid-19 + FLU A/B + RSV - PCR Stat 09/07/24 17:48 Troponin I Stat Piperacillin Sod/Tazobactam (Sod 3.375 gm/ Sodium Chloride) 100 mls @ 25 mls/hr IV Q8H [facility] Piperacillin Sod/Tazobactam (Sod 4.5 gm/ Sodium Chloride) 100 mls @ 25 mls/hr IV NOW ONE Stop: 09/07/24 18:44 Vancomycin HCl/Dextrose (Vancomycin) 2,000 mg in 400 mls @ 200 mls/hr IV Q48H [facility] Last Admin: 09/07/24 15:00 Dose: 200 mls/hr Documented By: SOO Sodium Chloride (Normal Saline 0.9%) 2,259 mls @ 753 mls/hr 30 ml/kg infuse over 3 hr (2259 ml) IV NOW ONE Stop: 09/07/24 19:38 Last Admin: 09/07/24 17:09 Dose: 753 mls/hr Documented By: RB Ondansetron HCl (Ondansetron 4 Mg/2 Ml Inj) 4 mg IV NOW PRN PRN Reason: Nausea And Vomiting Ondansetron HCl (Ondansetron 4 Mg Odt) 4 mg PO NOW PRN PRN Reason: Nausea And Vomiting Vancomycin HCl (Vancomycin Per Pharmacy) 1 request MISC NOW PRN PRN Reason: Fever > 100.4 Discontinued Medications Sodium Chloride (Normal Saline 0.9%) 1,000 mls @ 1,000 mls/hr IV BOLUS ONE Stop: 09/07/24 12:33 Last Infusion: 09/07/24 15:33 Dose: Infused Documented By: Admin: 09/07/24 14:29 Dose: 1,000 mls/hr Documented By: RB Acetaminophen (Ofirmev) 1,000 mg in 100 mls @ 400 mls/hr IV NOW ONE Stop: 09/07/24 14:40 Last Infusion: 09/07/24 15:06 Dose: Infused Documented By: FLChapito Admin: 09/07/24 14:34 Dose: 400 mls/hr Documented By: RB Piperacillin Sod/Tazobactam (Sod 3.375 gm/ Sodium Chloride) 100 mls @ 25 mls/hr IV Q8H [facility] Last Admin: 09/07/24 15:23 Dose: Not Given Documented By: RB Vancomycin HCl/Dextrose (Vancomycin) 2,000 mg in 400 mls @ 200 mls/hr IV Q24H [facility] Last Admin: 09/07/24 15:23 Dose: Not Given Documented By: RB Reevaluation(s) Reevaluation #1: Upon re-evaluation, patient is feeling better. Time: 16:42 Reevaluation #2: It was decided to go ahead and admit the patient under observation due to a sepsis picture most likely from his chronic wounds in his lower extremity. Time: 17:13 Consultations Consultation #1: Consulted Dr. Sandoval the hospitalist who graciously accepted the patient to be admitted under observation Time: 17:00 Vital Signs Vital signs: Vital Signs - 8 hr 09/07/24 14:03 09/07/24 14:04 09/07/24 14:04 Temperature Pulse Rate 94 H 95 H Respiratory Rate 23 24 Blood Pressure 161/83 H Pulse Oximetry 94 94 Oxygen Delivery Method 09/07/24 14:22 09/07/24 14:30 09/07/24 14:30 Temperature 101.7 F H Pulse Rate 96 H Respiratory Rate 19 Blood Pressure 164/88 H Pulse Oximetry 95 Oxygen Delivery Method 09/07/24 14:34 09/07/24 14:45 09/07/24 14:45 Temperature 101.7 F H Pulse Rate 97 H Respiratory Rate 22 Blood Pressure 163/88 H Pulse Oximetry 93 Oxygen Delivery Method 09/07/24 15:00 09/07/24 15:00 09/07/24 15:07 Temperature 99.2 F Pulse Rate 94 H Respiratory Rate 23 Blood Pressure 147/75 H Pulse Oximetry 94 Oxygen Delivery Method 09/07/24 15:15 09/07/24 15:15 09/07/24 15:30 Temperature Pulse Rate 90 Respiratory Rate 22 Blood Pressure 135/70 Pulse Oximetry 89 L 87 L Oxygen Delivery Method Room Air Room Air 09/07/24 15:30 09/07/24 15:30 09/07/24 15:45 Temperature Pulse Rate 87 Respiratory Rate 26 H Blood Pressure 136/63 139/64 Pulse Oximetry 89 L Oxygen Delivery Method Room Air 09/07/24 15:45 09/07/24 16:00 09/07/24 16:00 Temperature Pulse Rate 85 84 Respiratory Rate 21 16 Blood Pressure 127/62 Pulse Oximetry 97 98 Oxygen Delivery Method 09/07/24 16:30 09/07/24 16:31 09/07/24 16:31 Temperature Pulse Rate 83 84 Respiratory Rate 21 22 Blood Pressure 127/58 L Pulse Oximetry 98 98 Oxygen Delivery Method 09/07/24 16:45 09/07/24 16:45 09/07/24 17:00 Temperature Pulse Rate 82 Respiratory Rate 22 Blood Pressure 133/67 134/70 Pulse Oximetry 96 Oxygen Delivery Method 09/07/24 17:00 Temperature Pulse Rate 81 Respiratory Rate 19 Blood Pressure Pulse Oximetry 97 Oxygen Delivery Method Sepsis Evaluation (ED) Triage Screening Sepsis Screen: Possible Sepsis Risk Level 1 - Infection Sepsis Infection Criteria Present: Suspected New Infection Response It is my opinion that this patient have a likely infectious etiology for meeting sepsis criteria: Does Fluid calculation based on 30 mL/kg within 1hr of criteria: IBW used due to BMI>30 Antibiotics initiated within 1 hr of Sepis dx: Yes Tissue Perfusion Reassessed within 6 hrs of infusion start time: Yes Date of Tissue Perfusion Reassessment completed: 09/07/24 Time Tissue Perfusion Reassessment completed: 18:35 MDM - Sepsis Differential Diagnosis Current stage of sepsis: septic shock Possible source sepsis: wound Lab Data 09/07/24 10:55 09/07/24 10:55 Labs: Lab Results 09/07/24 09/07/24 09/07/24 Range/Units 10:55 13:24 13:45 WBC 11.4 H (4.5-11.0) X10^3/uL RBC 5.17 (4.5-5.9) X10^6/uL Hgb 12.6 L (13.5-17.5) g/dL Hct 39.3 L (41-53) % MCV 76.0 L (80-100) fL MCH 24.3 L (26-34) PG MCHC 32.0 (30-36) % RDW 17.0 H (11.6-14.8) % Plt Count 262 (150-400) X10^3/uL Neut % (Auto) 91.0 H (50-75) % Lymph % (Auto) 5.4 L (25-40) % [place] % (Auto) 3.2 (3-14) % Eos % (Auto) 0.1 L (2-4) % Baso % (Auto) 0.3 (0-2) % Neut # (Auto) 21150 H (7715-4193) /uL Lymph # (Auto) 600 L (3619-1891) /uL [place] # (Auto) 400 (0-900) /uL Eos # (Auto) 0 (0-450) /uL Baso # (Auto) 0 (0-100) /uL PT 14.0 H (9.4-12.5) SECONDS INR 1.2 (0.9-1.3) APTT 30 (25.1-36.5) SECONDS Sodium 141 (137-145) mmol/L Potassium 4.3 (3.4-5.1) mmol/L Chloride 105 (98-107) mmol/L Carbon Dioxide 25 (22-32) mmol/L BUN 37 H (9-20) mg/dL Creatinine 2.78 H (0.66-1.25) mg/dL Estimated GFR 26 L (>60) mL/min BUN/Creatinine Ratio 13.3 (6-22) Glucose 238 H (70-99) mg/dL Lactate 1.7 (0.7-2.1) mmol/L Calcium 8.5 (8.4-10.2) mg/dL Total Bilirubin 0.9 (0.2-1.3) mg/dL AST 30 (17-59) IU/L ALT 23 (<50) IU/L Alkaline Phosphatase 93 (38-126) U/L Total Creatine Kinase 173 H (55-170) U/L Troponin I 0.073 H 0.064 H (0.01-0.034) ng/mL Total Protein 8.4 H (6.3-8.2) g/dL Albumin 3.8 (3.5-5.0) g/dL Globulin 4.6 H (1.7-4.1) g/dL Albumin/Globulin Ratio 0.8 L (1.0-2.8) Lipase 78 (23-300) U/L Procalcitonin 5.96 H (<0.5) ng/mL SARS-CoV-2 (PCR) Negative (Negative) Influenza A (RT-PCR) Flu a negative (NEGATIVE) Influenza B (RT-PCR) Flu b negative (NEGATIVE) RSV (PCR) Negative (Negative) ECG Data Interpretation: EKG showed a sinus rhythm occasional premature ventricular complexes, possible left atrial enlargement, prolonged QT Previous EKG show the following Sinus tachycardia with occasional premature ventricular complexes and fusion complexes ST & T wave abnormality, consider lateral ischemia Prolonged QT MDM Narrative Medical decision making narrative: Was decided to admit the patient under observation for sepsis picture secondary most likely to his chronic lower extremity wounds Discharge Plan Departure Patient Disposition: Admitted As Inpatient Clinical Impression: Sepsis Qualifiers: Sepsis type: sepsis due to unspecified organism Sepsis acute organ dysfunction status: unspecified Qualified Code(s): A41.9 - Sepsis, unspecified organism Admit Date/Time: 09/07/24 17:00 Admit Provider: Jhon Sandoval V
[2024-09-07 13:54] LABS: Troponin I 0.064 ng/mL (0.01-0.034)
[2024-09-07 14:27] LABS: Influenza A - CEPHEID Flu A NEGATIVE (NEGATIVE); Influenza B - CEPHEID Flu B NEGATIVE (NEGATIVE)
[2024-09-07] MEDS: SODIUM CHLORIDE 0.9% 1,000 ML 1000 ML IV (14:29)
[2024-09-07] MEDS: ACETAMINOPHEN IV 1,000 MG/100 ML VIAL 400 MG IV ×2 (14:34→21:36)
[2024-09-07 14:46] LABS: COVID-19 CEPHEID 4-PLEX PCR Negative (Negative)
[2024-09-07] MEDS: VANCOMYCIN 2,000 MG/400 ML PIGGYBACK 200 MG IV (15:00)
--- NOTE | 2024-09-07 15:34 | PC.NURSE ---
This RN went into patient room and patient was actively snoring. Patient pulse ox reads 87% on room air. Patient awoken and asked if they use a CPAP at night or have known sleep apnea. Patient denies both. This RN placed patient on 2L of oxygen and informed Dr. Denson.
[2024-09-07] MEDS: SODIUM CHLORIDE 0.9% 2,259 ML 753 ML IV (17:09)
--- NOTE | 2024-09-07 17:35 | PC.NURSE ---
This RN gave verbal report to floor RN.
--- NOTE | 2024-09-07 17:35 | PC.NURSE ---
Patient states that he has known pressure ulcers on right lower extremity. Currently this area is covered but this RN informed acute care nurse to ensure identification and pictures upon admission.
[2024-09-07 18:22] LABS: Troponin I 0.062 ng/mL (0.01-0.034)
--- NOTE | 2024-09-07 18:27 | PM.HP.IH.1 ---
History of Present Illness History of Present Illness Date Patient Seen: 09/07/24 Time Patient Seen: 17:45 Chief complaint: Vomiting, chills for 1.5days Narrative: 54-year-old man with diabetes and neuropathy With chronic kidney disease under the primary care [facility] in [place] for a right lower extremity ulceration and left heel ulcer. He presented to the emergency department with chills, nausea and vomiting for the past 2 days and states that the garcia has gotten progressively more tender and painful in the past few days, presented to the emergency department tonight for evaluation, found to have white blood count elevated 11.4, procalcitonin 5.96, lactate 1.7 with initial troponin 0.073 and repeat 0.062. He denies chest pain or breathing problems. He is administered vancomycin and Zosyn and is admitted for further management and evaluation. [facility] Medical History Congestive heart failure COVID Diabetes mellitus Hypertension Ulcer of left lower leg Ulcer of right leg Surgical History History of foot surgery Family History Father Myocardial infarction Mother Diabetes mellitus Brother Diabetes mellitus Social History household members: spouse and children alcohol intake: never Meds Home Medications and Allergies Home Medications ?Medication ?Instructions ?Recorded ?Confirmed ?Type amlodipine 10 mg tablet 10 mg PO DAILY 03/14/18 08/16/23 History lisinopril 40 mg tablet 40 mg PO DAILY 03/14/18 08/17/23 History metformin 500 mg tablet 500 mg PO BID 03/14/18 08/17/23 History insulin lispro 100 unit/mL 12 - 15 unit SUBCUT TID 09/23/22 08/16/23 History subcutaneous pen (Humalog KwikPen (U-100) Insulin) carvedilol 25 mg tablet 25 mg PO BIDWM #30 tabs 10/04/22 08/16/23 Rx chlorthalidone 25 mg tablet 25 mg PO DAILY #30 tabs 10/04/22 08/16/23 Rx ondansetron 4 mg disintegrating 4 mg PO Q6H PRN nausea and 01/07/24 Rx tablet vomiting #5 tabs doxycycline hyclate 100 mg capsule 100 mg PO BID #14 caps 08/29/24 Rx Allergies Allergy/AdvReac Type Severity Reaction Status Date / Time No Known Drug Allergies Allergy Verified 09/07/24 10:20 Review of Systems Review of Systems ROS: Yes All systems reviewed with the patient and are negative except as otherwise documented Exam Vital Signs (past 8 hours): - 09/07/24 14:03 09/07/24 14:04 09/07/24 14:04 Temperature Pulse Rate 94 H 95 H Respiratory Rate 23 24 Blood Pressure 161/83 H Pulse Oximetry 94 94 Oxygen Delivery Method Oxygen Flow Rate 09/07/24 14:22 09/07/24 14:30 09/07/24 14:30 Temperature 101.7 F H Pulse Rate 96 H Respiratory Rate 19 Blood Pressure 164/88 H Pulse Oximetry 95 Oxygen Delivery Method Oxygen Flow Rate 09/07/24 14:34 09/07/24 14:45 09/07/24 14:45 Temperature 101.7 F H Pulse Rate 97 H Respiratory Rate 22 Blood Pressure 163/88 H Pulse Oximetry 93 Oxygen Delivery Method Oxygen Flow Rate 09/07/24 15:00 09/07/24 15:00 09/07/24 15:07 Temperature 99.2 F Pulse Rate 94 H Respiratory Rate 23 Blood Pressure 147/75 H Pulse Oximetry 94 Oxygen Delivery Method Oxygen Flow Rate 09/07/24 15:15 09/07/24 15:15 09/07/24 15:30 Temperature Pulse Rate 90 Respiratory Rate 22 Blood Pressure 135/70 Pulse Oximetry 89 L 87 L Oxygen Delivery Method Room Air Room Air Oxygen Flow Rate 09/07/24 15:30 09/07/24 15:30 09/07/24 15:45 Temperature Pulse Rate 87 Respiratory Rate 26 H Blood Pressure 136/63 139/64 Pulse Oximetry 89 L Oxygen Delivery Method Room Air Oxygen Flow Rate 09/07/24 15:45 09/07/24 16:00 09/07/24 16:00 Temperature Pulse Rate 85 84 Respiratory Rate 21 16 Blood Pressure 127/62 Pulse Oximetry 97 98 Oxygen Delivery Method Oxygen Flow Rate 09/07/24 16:30 09/07/24 16:31 09/07/24 16:31 Temperature Pulse Rate 83 84 Respiratory Rate 21 22 Blood Pressure 127/58 L Pulse Oximetry 98 98 Oxygen Delivery Method Oxygen Flow Rate 09/07/24 16:45 09/07/24 16:45 09/07/24 17:00 Temperature Pulse Rate 82 Respiratory Rate 22 Blood Pressure 133/67 134/70 Pulse Oximetry 96 Oxygen Delivery Method Oxygen Flow Rate 09/07/24 17:00 09/07/24 17:30 09/07/24 17:32 Temperature Pulse Rate 81 81 Respiratory Rate 19 37 H Blood Pressure 141/71 H Pulse Oximetry 97 97 Oxygen Delivery Method Oxygen Flow Rate 09/07/24 17:32 09/07/24 17:33 09/07/24 18:20 Temperature 98.1 F 97.5 F L Pulse Rate 87 95 H Respiratory Rate 20 24 Blood Pressure 163/92 H Pulse Oximetry 99 98 Oxygen Delivery Method Oxygen Flow Rate 1 Oxygen Delivery Method Room Air Oxygen Flow Rate 1 Narrative Exam Narrative: GENERAL: This is a well-nourished, well-developed patient, in no apparent distress. EYES: Pupils equal round and reactive. Extraocular motions intact. No scleral icterus. No injection or drainage. ENT: Mucous membranes pink and moist. NECK: Trachea midline. No JVD, bruits or lymphadenopathy. Supple, nontender, no meningeal signs. CARDIOVASCULAR: Regular rate and rhythm without murmurs, gallops, or rubs. RESPIRATORY: Clear to auscultation. GASTROINTESTINAL: Abdomen soft, non-tender, nondistended. EXTREMITIES: No clubbing, cyanosis, or edema. NEUROLOGIC: Alert, oriented, speech fluent, full upper and lower motor strength, no focal deficits evident. DERMATOLOGIC: Right distal anterior garcia with erythematous, macerated ulceration over proximally 10-12 cm area. Objective ECG Impression: Sinus rhythm with occasional premature ventricular complexes At 100 beats per minute Possible Left atrial enlargement Prolonged QTc 528 milliseconds Imaging Chest x-ray: Radiologist's impression: Interstitial prominence is seen throughout. The interstitial prominence is nonspecific, yet may be related to pulmonary edema. Please consider atypical infection, including viral pneumonia. Postoperative and degenerative changes are seen. Labs 09/07/24 10:55 09/07/24 10:55 Labs: Laboratory Results - last 24 hr 09/07/24 09/07/24 09/07/24 10:55 13:24 13:45 WBC 11.4 H RBC 5.17 Hgb 12.6 L Hct 39.3 L MCV 76.0 L MCH 24.3 L MCHC 32.0 RDW 17.0 H Plt Count 262 Neut % (Auto) 91.0 H Lymph % (Auto) 5.4 L [place] % (Auto) 3.2 Eos % (Auto) 0.1 L Baso % (Auto) 0.3 Neut # (Auto) 17217 H Lymph # (Auto) 600 L [place] # (Auto) 400 Eos # (Auto) 0 Baso # (Auto) 0 PT 14.0 H INR 1.2 APTT 30 Sodium 141 Potassium 4.3 Chloride 105 Carbon Dioxide 25 BUN 37 H Creatinine 2.78 H Estimated GFR 26 L BUN/Creatinine Ratio 13.3 Glucose 238 H Lactate 1.7 Calcium 8.5 Total Bilirubin 0.9 AST 30 ALT 23 Alkaline Phosphatase 93 Total Creatine Kinase 173 H Troponin I 0.073 H 0.064 H Total Protein 8.4 H Albumin 3.8 Globulin 4.6 H Albumin/Globulin Ratio 0.8 L Lipase 78 Procalcitonin 5.96 H SARS-CoV-2 (PCR) Negative Influenza A (RT-PCR) Flu a negative Influenza B (RT-PCR) Flu b negative RSV (PCR) Negative 09/07/24 17:48 WBC RBC Hgb Hct MCV MCH MCHC RDW Plt Count Neut % (Auto) Lymph % (Auto) [place] % (Auto) Eos % (Auto) Baso % (Auto) Neut # (Auto) Lymph # (Auto) [place] # (Auto) Eos # (Auto) Baso # (Auto) PT INR APTT Sodium Potassium Chloride Carbon Dioxide BUN Creatinine Estimated GFR BUN/Creatinine Ratio Glucose Lactate Calcium Total Bilirubin AST ALT Alkaline Phosphatase Total Creatine Kinase Troponin I 0.062 H Total Protein Albumin Globulin Albumin/Globulin Ratio Lipase Procalcitonin SARS-CoV-2 (PCR) Influenza A (RT-PCR) Influenza B (RT-PCR) RSV (PCR) Assessment & Plan Assessment & Plan narrative: 1. Right lower extremity cellulitis / ulceration. Admit to observation, treated with IV vancomycin and Zosyn and follow cultures. Consult Wound Care. 2. Nausea, vomiting, chills, leukocytosis, elevated procalcitonin. Likely due to 1. Unlikely pneumonia. Follow with antibiotics and clinical status. 3. Elevated troponin, rule out myocardial infarction. Monitor on telemetry. Suspect elevated due to renal failure and acute illness. 4. Acute kidney injury superimposed on chronic stage 3b kidney disease. Hold diuretics and lisinopril. Hydrate IV and follow. 5. Prolonged QTC. Follow and avoid interacting medications. 6. CHF. Follow with IV hydration. 7. Diabetes mellitus, type 2. Sliding scale, diabetic diet. hold metformin given renal failure. 8. Hypertension. Continue routine Amlodipine and carvedilol, hold lisinopril and chlorthalidone given acute kidney injury. plan: - admit to observation - IV vancomycin and Zosyn -follow cultures -serial cardiac enzymes -Monitor on telemetry - follow renal function DVT prophylaxis: Enoxaparin renally dose Code status: Full code. The patient clearly expresses this medical wish. His children are his surrogate decision makers. [employer] Document charge(s): No Charge Codes Initial inpatient/observation care: [id number]
[2024-09-07] MEDS: PIPERACILLIN/TAZO 4.5 GM in SODIUM CHLORIDE 0.9% 100 ML IV (18:43)
--- NOTE | 2024-09-07 19:29 | PC.NURSE ---
Patient to room 220 at 1755. He is resting comfortably. IVF infusing and IV zosyn is hanging. Patient has wounds on his bilateral legs. Report passed onto machine assistant RNJade.
[2024-09-07] MEDS: ACETAMINOPHEN 325 MG TABLET 650 MG PO (19:52)
[2024-09-07] MEDS: SODIUM CHLORIDE 0.45% 1,000 ML 100 ML IV (19:53)
[2024-09-07 19:59] LABS: Appearance Urine UA CLEAR; Bilirubin Urine UA NEGATIVE (NEGATIVE); Color Urine UA YELLOW; Glucose Urine UA 3+ g/dL (Negative); Ketones Urine UA NEGATIVE (NEGATIVE); Leukocyte Esterase Urine UA NEGATIVE (NEGATIVE); Nitrite Urine UA NEGATIVE (Negative); Occult Blood Urine UA 3+ (Negative); Protein Urine UA 3+ (Negative); Specific Gravity Urine UA 1.020 (1.000-1.035); Urobilinogen Urine UA 0.2 E.U./dL (0.2); pH Urine UA 7.0 (4.5-8.0)
[2024-09-07 20:09] LABS: Culture Indicated Urine Cult Not Indicated
[2024-09-08] VITALS: BP 145/83; PULSE 89; RESP 20; TEMP 36.9; TEMP 37.3; O2SAT 97
--- NOTE | 2024-09-08 01:48 | PC.WOUNDPHOT ---
L FOOT L FOOT L FELIX L CALF LLE PROXIMAL LLE- MEDIAL L FOOT LLE RLE- CALF R FOOT RLE - MEDIAL RLE- PROXIMAL RLE- FELIX
[2024-09-08] MEDS: PIPERACILLIN/TAZO 3.375 GM in SODIUM CHLORIDE 0.9% 100 ML IV ×3 (02:24→18:50)
[2024-09-08 04:00] VITALS: BP 123/60; PULSE 83; RESP 18; TEMP 37.2; O2SAT 98
[2024-09-08 05:30] LABS: Add Manual Diff / Slide Review NO; Hematocrit 36.0 % (41-53); Hemoglobin 11.6 g/dL (13.5-17.5); Lymphocytes Absolute Auto 1000 /uL (1100-4500); Mean Corpuscular HGB Conc 32.2 % (30-36); Mean Corpuscular Hemoglobin 24.4 PG (26-34); Mean Corpuscular Volume 75.7 fL (80-100); Platelet Count 217 X10^3/uL (150-400)
[2024-09-08 05:40] LABS: Blood Urea Nitrogen 35 mg/dL (9-20); Calcium 8.0 mg/dL (8.4-10.2); Carbon Dioxide 23 mmol/L (22-32); Chloride 108 mmol/L (98-107); Estimated Glomerular Filt Rate 30 mL/min (>60); Glucose 182 mg/dL (70-99); HEMOLYSIS < 15 (0-50); Potassium 4.0 mmol/L (3.4-5.1); Sodium 140 mmol/L (137-145)
[2024-09-08 05:42] LABS: Hemoglobin A1C% w Est Avg Glu 10.8 % (4.0-6.0)
[2024-09-08 05:52] LABS: Troponin I 0.043 ng/mL (0.01-0.034)
[2024-09-08] MEDS: SODIUM CHLORIDE 0.45% 1,000 ML 100 ML IV ×2 (06:35→16:56)
--- NOTE | 2024-09-08 07:30 | PC.NURSE ---
Stevene to do medication list due to pt not being sure. Pt to ask his family to take a picture of his medication and bring them in. Per pt he normally gets his wound care at [facility] on Mondays (PICTURES TAKEN OF WOUND and wounds redress). wound care order placed and a message was left for them. Pt getting ivf at 100 (pt does has history of CHF).
[2024-09-08 08:00] VITALS: BP 160/94; PULSE 95; RESP 17; TEMP 36.3; O2SAT 91
[2024-09-08] MEDS: AMLODIPINE 5 MG TABLET 10 MG PO (08:19)
[2024-09-08] MEDS: INSULIN LISPRO 100 UNIT/ML 3ML VIAL SUBCUT ×4 (08:19→21:32)
[2024-09-08] MEDS: ENOXAPARIN 30 MG/0.3 ML SYRINGE SUBCUT (08:19)
[2024-09-08] MEDS: ONDANSETRON 4 MG ODT PO (08:34)
[2024-09-08 12:00] VITALS: BP 114/80; PULSE 71; RESP 17; TEMP 36.1; O2SAT 99
--- NOTE | 2024-09-08 14:09 | DIET.CONS ---
Dietary Consultation Note Admission Date: 09/07/2024 17:00 Assessment: 54 y M admitted for with vomiting and chills and right lower extremity cellulitis / ulceration. Dietitian consulted for chronic BLE wounds. Attempted to met with pt, sleeping soundly and did not fully wake to calling out name x2. EMR reviewed. No recent weight loss. Hx of gastroparesis, CABG, CKD3b, DM (10.8% A1c) Ht: 180.34 cm Wt: 135.5 kg BMI: 42.7 UBW: 127 kg on 05/08/24, 145 kg on 01/2024 Last BM: 09/07/24 (09/07/24 18:46) MNA: 14 Titi Score: 19 Diet: 09/07/24 Breakfast Carbohydrate Consistent Diet Diet Modifications: Carbohydrate level: Large (4 CHO) Reflex DM orders: No 09/07/24 11:35 NPO Diet Diet Modifications: NPO Type: NPO except for Meds Labs: RBC 4.75 X10^6/uL (4.5-5.9) 09/08/24 04:50 Hgb 11.6 g/dL (13.5-17.5) L 09/08/24 04:50 Hct 36.0 % (41-53) L 09/08/24 04:50 Creatinine 2.46 mg/dL (0.66-1.25) H 09/08/24 04:50 Hemoglobin A1c 10.8 % (4.0-6.0) H 09/08/24 04:50 Lactate 1.7 mmol/L (0.7-2.1) 09/07/24 10:55 Nutrition Diagnosis: Altered nutrition related lab values (A1c) r/t endocrine dysfunction aeb T2DM with A1c of 10.8% Interventions: -Will f/u to provide educ on nutrition and wound healing and BG and nutritional management EER: 45-60 g CHO at meals Monitoring/Evaluations: PO intakes, BG Electronically Signed by: Guerline Rivera 09/08/24 14:09 Clinical Dietitian [address] [id number]
--- NOTE | 2024-09-08 16:05 | PM.CN ---
History of Present Illness Consult details Date Patient Seen: 09/08/24 Time Patient Seen: 15:30 Chief complaint: Vomiting, chills for 1.5days Narrative: The patient is a 54-year-old male with diabetes, neuropathy, CHF, and venous insufficiency who was admitted to the hospital yesterday with cellulitis of the right lower extremity associated with an ulcer. The patient reports that the ulcer spontaneously developed about 2 weeks ago. It gradually enlarged and became more painful then started draining some purulent fluid. He was seen in the emergency room 1 week ago started on doxycycline. The pain continued to slowly worsen and he developed some fevers and therefore he returned to be re-evaluated and was admitted to the hospital for IV antibiotic therapy. The patient is unsure how the ulcer developed. He does not recall injuring the area. He has a diabetic ulcer on the plantar aspect of the left foot for which he is followed by the [facility] wound center. The patient has a history of intermittent swelling of his lower extremities and uses Velcro wraps for compression. He reports a good appetite and denies having any other recent changes in his overall health. Labs were reviewed and he was noted to have hemoglobin A1c of 10. The patient reports that he did have an arterial evaluation 1 year ago that showed decreased blood flow in the right lower extremity. He is not a current cigarette smoker. Meds Home Medications and Allergies Home Medications ?Medication ?Instructions ?Recorded ?Confirmed ?Type amlodipine 10 mg tablet 10 mg PO DAILY 03/14/18 08/16/23 History lisinopril 40 mg tablet 40 mg PO DAILY 03/14/18 08/17/23 History metformin 500 mg tablet 500 mg PO BID 03/14/18 08/17/23 History insulin lispro 100 unit/mL 12 - 15 unit SUBCUT TID 09/23/22 08/16/23 History subcutaneous pen (Humalog KwikPen (U-100) Insulin) carvedilol 25 mg tablet 25 mg PO BIDWM #30 tabs 10/04/22 08/16/23 Rx chlorthalidone 25 mg tablet 25 mg PO DAILY #30 tabs 10/04/22 08/16/23 Rx ondansetron 4 mg disintegrating 4 mg PO Q6H PRN nausea and 01/07/24 Rx tablet vomiting #5 tabs doxycycline hyclate 100 mg capsule 100 mg PO BID #14 caps 08/29/24 Rx Allergies Allergy/AdvReac Type Severity Reaction Status Date / Time No Known Drug Allergies Allergy Verified 09/07/24 10:20 Review of Systems Cardiovascular Comments: No chest pain Respiratory Comments: Shortness of breath with exertion Musculoskeletal Comments: Lower extremity swelling Exam Vital Signs (past 8 hours): - 09/08/24 12:00 Temperature 97.0 F L Pulse Rate 71 Respiratory Rate 17 Blood Pressure 114/80 Pulse Oximetry 99 Oxygen Flow Rate 3 Oxygen Delivery Method Room Air Oxygen Flow Rate 3 Narrative Exam Narrative: Well-developed well-nourished male who is alert and oriented, no apparent distress Skin Other: 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 Two full-thickness ulcers anterior right lower extremity with some nonviable tissue. No erythema or purulent drainage noted. [place] 2 diabetic ulcer plantar left foot with no sign of infection. Neuro Other: Decreased lower extremity sensation Objective ECG Impression: Toe amputations on left foot Labs 09/08/24 04:50 09/08/24 04:50 Labs: Laboratory Results - last 24 hr 09/07/24 09/07/24 09/07/24 17:48 19:41 20:07 WBC RBC Hgb Hct MCV MCH MCHC RDW Plt Count Neut % (Auto) Lymph % (Auto) [place] % (Auto) Eos % (Auto) Baso % (Auto) Neut # (Auto) Lymph # (Auto) [place] # (Auto) Eos # (Auto) Baso # (Auto) Sodium Potassium Chloride Carbon Dioxide BUN Creatinine Estimated GFR BUN/Creatinine Ratio Glucose POC Whole Bld Glucose 181 H Hemoglobin A1c Calcium Troponin I 0.062 H Urine Color Yellow Urine Appearance Clear Urine pH 7.0 Ur Specific [place] 1.020 Urine Protein 3+ H Urine Glucose (UA) 3+ H Urine Ketones Negative Urine Occult Blood 3+ H Urine Nitrate Negative Urine Bilirubin Negative Urine Urobilinogen 0.2 Ur Leukocyte Esterase Negative Urine RBC 10-30/hpf H Urine WBC None seen Ur Squamous Epith Cells None seen Urine Bacteria Few (2-10) H Ur Culture Indicated? Cult not indicated Vol Urine Centrifuged 10ml (spun) 09/08/24 09/08/24 09/08/24 04:50 07:59 11:43 WBC 8.5 RBC 4.75 Hgb 11.6 L Hct 36.0 L MCV 75.7 L MCH 24.4 L MCHC 32.2 RDW 16.8 H Plt Count 217 Neut % (Auto) 79.4 H Lymph % (Auto) 12.0 L [place] % (Auto) 7.2 Eos % (Auto) 0.8 L Baso % (Auto) 0.6 Neut # (Auto) 6700 Lymph # (Auto) 1000 L [place] # (Auto) 600 Eos # (Auto) 100 Baso # (Auto) 100 Sodium 140 Potassium 4.0 Chloride 108 H Carbon Dioxide 23 BUN 35 H Creatinine 2.46 H Estimated GFR 30 L BUN/Creatinine Ratio 14.2 Glucose 182 H POC Whole Bld Glucose 178 H 189 H Hemoglobin A1c 10.8 H Calcium 8.0 L Troponin I 0.043 H Urine Color Urine Appearance Urine pH Ur Specific [place] Urine Protein Urine Glucose (UA) Urine Ketones Urine Occult Blood Urine Nitrate Urine Bilirubin Urine Urobilinogen Ur Leukocyte Esterase Urine RBC Urine WBC Ur Squamous Epith Cells Urine Bacteria Ur Culture Indicated? Vol Urine Centrifuged [facility] Medical History COVID Hypertension Ulcer of right leg Congestive heart failure Diabetes mellitus Ulcer of left lower leg Surgical History History of foot surgery Family History Father Myocardial infarction Mother Diabetes mellitus Brother Diabetes mellitus Social History household members: spouse and children Tobacco & Substance Use alcohol intake: never Assessment & Plan Assessment and plan (1) Cellulitis of right lower leg: Status: Acute (2) Diabetic foot ulcer: Status: Acute (3) Non-pressure chronic ulcer of other part of right lower leg with fat layer exposed: Status: Acute (4) Non-pressure chronic ulcer of left heel and midfoot with fat layer exposed: Status: Acute (5) Type 2 diabetes mellitus with diabetic polyneuropathy: Status: Acute (6) Venous insufficiency (chronic) (peripheral): Status: Acute (7) Type 2 diabetes mellitus with other skin ulcer: Status: Acute Assessment & Plan narrative: 2 ulcers anterior right lower extremity associated with cellulitis, venous insufficiency, and diabetes. Plan for arterial Doppler to assess arterial circulation, x-ray right lower extremity, culture ulcers anterior right lower extremity. Start daily dressing changes with Iodoflex and use Tubigrip for compression. Start dressing changes with Iodoflex to diabetic ulcer left foot. Follow up at the [facility] wound [place] after discharge. Time-Based Coding :: [50 MINUTES] spent with patient and on the chart (including review of chart, obtaining history, exam, reviewing outside data, placing orders, documenting exam and treatment plan, and counseling patient) on [09/08/2024].
--- NOTE | 2024-09-08 16:18 | DI.US.S_ITS ---
PROCEDURE: US ARTERIAL DUPLEX LE BI INDICATIONS: Lower extremity ulcers TECHNIQUE: Color and pulse Doppler interrogation was performed of both lower extremity arterial systems, with image documentation. COMPARISON: None. FINDINGS: Right lower extremity: Common femoral artery: 70 cm/sec, with multiphasic flow. Deep femoral artery: 85 cm/sec, with multiphasic flow. Proximal superficial femoral artery: 74 cm/sec, with multiphasic flow. Mid superficial femoral artery: 121 cm/sec, with multiphasic flow. Distal superficial femoral artery: 58 cm/sec, with multiphasic flow. Popliteal artery: 69 cm/sec, with multiphasic flow. Posterior tibial artery: 124 cm/sec at the midportion with multiphasic flow, and 20 cm/sec distally with monophasic flow. Anterior tibial artery/dorsalis pedis: Anterior tibial artery not visualized. Dorsalis pedis 54 cm/sec, with monophasic flow. Peroneal artery demonstrates multiphasic flow. [place]-scale imaging description: Atherosclerotic plaque Left lower extremity: Common femoral artery: 99 cm/sec, with multiphasic flow. Deep femoral artery: 58 cm/sec, with multiphasic flow. Proximal superficial femoral artery: 95 cm/sec, with multiphasic flow. Mid superficial femoral artery: 118 cm/sec, with multiphasic flow. Distal superficial femoral artery: 57 cm/sec, with multiphasic flow. Popliteal artery: 72 cm/sec, with multiphasic flow. Posterior tibial artery: 835 cm/sec and multiphasic at the midportion and not visualized distally. Anterior tibial artery/dorsalis pedis: 24 cm/sec, with monophasic flow. Peroneal artery not seen. [place]-scale imaging description: Atherosclerotic plaque IMPRESSION: Suspected hemodynamically significant stenosis within the posterior tibial arteries bilaterally with decreased distal flow. Approved by: Jignesh Polk M.D. on 09/08/2024 at 20:30
--- NOTE | 2024-09-08 16:18 | CM.DANOTE ---
B DCP Assessment note pt is a 54yo M with PMH of chronic heel ulcers (previously established at [facility] wound care) here with lower right leg cellulitis PCP Ovalles at [facility] and self pay [employer]IVE [employer] reviewed EMR per chart pt lives with son and partner? in [place]. indep at baseline. per provider, plan for wound care consult today to move forward with plan. [employer]IVE [employer] placed call to wound care center, they are aware of consult. [employer]ENT[employer]IVE [employer] attempted to meet with pt in room. sleeping heavily/snoring. allowed to rest. P: medical POC pending. anticipate back to home with family support and OP f/u. will continue to fllow closely for additional wound care/abx needs at hi. CHUCHO Mejia Discharge Planning/Care Management CM Discharge Assessment Start: 09/07/24 18:19 Freq: Status: Active Protocol: Document 09/08/24 16:15 SL (Rec: 09/08/24 16:18 SL [id number]) Discharge Planning Assessment Assigned Discharge CHUCHO Tyler Epic Specialist DPOA/Assigned Vicente betancourt Designee Name Contact Information [phone] Advance Directives? No Advance Directives No on File History Provided By Patient,Medical Record Prior Living Apartment/Condo Arrangements Type of Drives own vehicle transporation used prior to admit Independent with ADL Yes 's Is patient alert and Yes oriented? Comment He has supportive family members. Discharge Plan Home Referrals Initiated None needed Additional Comment Patient is already established at wound clinic in [facility] Review Status In Process Please Provide Date 09/08/24 Initial DC Assessment Was Performed Next Review Type Continued Stay Review
--- NOTE | 2024-09-08 16:19 | DI.RAD.S_ITS ---
PROCEDURE: XR TIBIA FUBULA RT 2V INDICATIONS: Ulcer right lower extremity TECHNIQUE: 2 views of the tibia and fibula were acquired. COMPARISON: None. FINDINGS: Bones: No fractures or dislocations. No suspicious bony lesions. Significant diffuse osteopenia. Degenerative disease in the midfoot. Soft tissues: No suspicious soft tissue calcifications or masses. IMPRESSION: No acute osseous lesions or definite soft tissue gas seen. Dictated by: Aryan Burdick M.D. on 09/08/2024 at 17:23 Approved by: Aryan Burdick M.D. on 09/08/2024 at 17:24
--- NOTE | 2024-09-08 16:25 | P.PN_ITS ---
Subjective Subjective Date Patient Seen: 09/08/24 Interval history: Chief complaint: Cellulitis of lower extremities with vomiting rigors and fevers for 2 days History of present illness: 09/07: 54-year-old man with diabetes and neuropathy With chronic kidney disease under the primary care of Dr. Ovalles of [facility] and wound care clinic in [place] for a right lower extremity ulceration and left heel ulcer. He presented to the emergency department with chills, nausea and vomiting for the past 2 days and states that the garcia has gotten progressively more tender and painful in the past few days, presented to the emergency department tonight for evaluation, found to have white blood count elevated 11.4, procalcitonin 5.96, lactate 1.7 with initial troponin 0.073 and repeat 0.062. He denies chest pain or breathing problems. He is administered vancomycin and Zosyn and is admitted for further management and evaluation. Hospital course: 09/08: Overnight no fevers or chills no episodes of vomiting. Pain in his lower extremities is less intense today white blood cell count de-escalated from 11- 8.5 BUN creatinine 35/2.4 blood cultures no growth in 24 hours previous blood culture grew Staphylococcus aureus in May of this year Review of systems: No headache diplopia blurred vision No chest pain palpitations wheezing or shortness a breath No nausea vomiting diarrhea No abdominal pain Physical exam: Elderly male appearing older than 54 years of age HEENT unremarkable Unlabored respirations Abdomen nontender bowel sounds present Extremities have extensive chronic venous stasis with superimposed cellulitis from mid calf distally and involving the heels and dorsum of the foot bilaterally For objective laboratory and imaging please see the bottom of the note: Assessment and plan: 1. Right lower extremity cellulitis / ulceration. * treated with IV vancomycin and Zosyn * follow cultures. * Consult Wound Care. Appreciate * 2. Sepsis secondary to cellulitis Nausea, vomiting, chills, leukocytosis, elevated procalcitonin. 3. Elevated troponin, without arrhythmias on telemetry or signs of acute coronary syndrome on EKG or symptoms * . Suspect elevated due to renal failure and acute illness. * Ultimately will need a workup outpatient 4. Acute kidney injury superimposed on chronic stage 3b kidney disease. * Hold diuretics and lisinopril. * Hydrate IV and follow. 5. Prolonged QTC. Follow and avoid interacting medications. 6. CHF. Compensated. 7. Diabetes mellitus, type 2. * Sliding scale * diabetic diet. * hold metformin given renal failure. 8. Hypertension. Continue routine Amlodipine and carvedilol, hold lisinopril and chlorthalidone given acute kidney injury. DVT prophylaxis: * Enoxaparin renally dose Code status: * Full code. The patient clearly expresses this medical wish. His children are his surrogate decision makers. Disposition: * Change to inpatient * Anticipate 3 more days of hospitalization * Forecast 70% probability that patient will be discharged 09/11, 30% chance that patient can be discharged Sunday 09/10 35 minutes were involved in management this patient including [id number] evaluation direct physical examination review of records and current objective laboratory Exam Vital Signs (past 8 hours): - 09/08/24 12:00 Temperature 97.0 F L Pulse Rate 71 Respiratory Rate 17 Blood Pressure 114/80 Pulse Oximetry 99 Oxygen Flow Rate 3 Oxygen Delivery Method Room Air Oxygen Flow Rate 3 Objective Labs 09/08/24 04:50 09/08/24 04:50 Labs: Laboratory Results - last 24 hr 09/07/24 09/07/24 09/07/24 17:48 19:41 20:07 WBC RBC Hgb Hct MCV MCH MCHC RDW Plt Count Neut % (Auto) Lymph % (Auto) [place] % (Auto) Eos % (Auto) Baso % (Auto) Neut # (Auto) Lymph # (Auto) [place] # (Auto) Eos # (Auto) Baso # (Auto) Sodium Potassium Chloride Carbon Dioxide BUN Creatinine Estimated GFR BUN/Creatinine Ratio Glucose POC Whole Bld Glucose 181 H Hemoglobin A1c Calcium Troponin I 0.062 H Urine Color Yellow Urine Appearance Clear Urine pH 7.0 Ur Specific [place] 1.020 Urine Protein 3+ H Urine Glucose (UA) 3+ H Urine Ketones Negative Urine Occult Blood 3+ H Urine Nitrate Negative Urine Bilirubin Negative Urine Urobilinogen 0.2 Ur Leukocyte Esterase Negative Urine RBC 10-30/hpf H Urine WBC None seen Ur Squamous Epith Cells None seen Urine Bacteria Few (2-10) H Ur Culture Indicated? Cult not indicated Vol Urine Centrifuged 10ml (spun) 09/08/24 09/08/24 09/08/24 04:50 07:59 11:43 WBC 8.5 RBC 4.75 Hgb 11.6 L Hct 36.0 L MCV 75.7 L MCH 24.4 L MCHC 32.2 RDW 16.8 H Plt Count 217 Neut % (Auto) 79.4 H Lymph % (Auto) 12.0 L [place] % (Auto) 7.2 Eos % (Auto) 0.8 L Baso % (Auto) 0.6 Neut # (Auto) 6700 Lymph # (Auto) 1000 L [place] # (Auto) 600 Eos # (Auto) 100 Baso # (Auto) 100 Sodium 140 Potassium 4.0 Chloride 108 H Carbon Dioxide 23 BUN 35 H Creatinine 2.46 H Estimated GFR 30 L BUN/Creatinine Ratio 14.2 Glucose 182 H POC Whole Bld Glucose 178 H 189 H Hemoglobin A1c 10.8 H Calcium 8.0 L Troponin I 0.043 H Urine Color Urine Appearance Urine pH Ur Specific [place] Urine Protein Urine Glucose (UA) Urine Ketones Urine Occult Blood Urine Nitrate Urine Bilirubin Urine Urobilinogen Ur Leukocyte Esterase Urine RBC Urine WBC Ur Squamous Epith Cells Urine Bacteria Ur Culture Indicated? Vol Urine Centrifuged [facility] Medical History COVID Hypertension Ulcer of right leg Congestive heart failure Diabetes mellitus Ulcer of left lower leg Surgical History History of foot surgery Family History Father Myocardial infarction Mother Diabetes mellitus Brother Diabetes mellitus Social History household members: spouse and children alcohol intake: never Assessment & Plan Time-Based Coding :: [TOTAL MINUTES] spent with patient and on the chart (including review of chart, obtaining history, exam, reviewing outside data, placing orders, documenting exam and treatment plan, and counseling patient) on [DATE]. Quality VTE Deep Vein Thrombosis/Pulmonary Embolism Present on Admission: No
[2024-09-08 16:45] VITALS: BP 138/79; PULSE 78; RESP 18; TEMP 36.1; O2SAT 98
[2024-09-08 20:00] VITALS: BP 125/75; PULSE 74; RESP 20; TEMP 35.9; O2SAT 98
[2024-09-08] MEDS: ENOXAPARIN 40 MG/0.4 ML SYRINGE SUBCUT (21:40)
[2024-09-09] VITALS (7 sets, daily range): BP systolic 129–151; BP diastolic 83–97; PULSE 68–77; RESP 17–18; TEMP 36.1–36.6; O2SAT 93–99
[2024-09-09] MEDS: PIPERACILLIN/TAZO 3.375 GM in SODIUM CHLORIDE 0.9% 100 ML IV ×3 (01:52→18:42)
[2024-09-09] MEDS: SODIUM CHLORIDE 0.45% 1,000 ML 100 ML IV ×2 (03:19→19:00)
[2024-09-09] MEDS: INSULIN LISPRO 100 UNIT/ML 3ML VIAL SUBCUT ×4 (08:20→21:21)
[2024-09-09] MEDS: AMLODIPINE 5 MG TABLET 10 MG PO (08:20)
[2024-09-09] MEDS: ENOXAPARIN 40 MG/0.4 ML SYRINGE SUBCUT ×2 (08:20→21:22)
--- NOTE | 2024-09-09 13:56 | P.PN_ITS ---
Subjective Subjective Date Patient Seen: 09/09/24 Interval history: Chief complaint: Cellulitis of lower extremities with vomiting rigors and fevers for 2 days History of present illness: 09/07: 54-year-old man with diabetes and neuropathy With chronic kidney [facility] [place] for a right lower extremity ulceration and left heel ulcer. He presented to the emergency department with chills, nausea and vomiting for the past 2 days and states that the garcia has gotten progressively more tender and painful in the past few days, presented to the emergency department tonight for evaluation, found to have white blood count elevated 11.4, procalcitonin 5.96, lactate 1.7 with initial troponin 0.073 and repeat 0.062. He denies chest pain or breathing problems. He is administered vancomycin and Zosyn and is admitted for further management and evaluation. Hospital course: 09/08: Overnight no fevers or chills no episodes of vomiting. Pain in his lower extremities is less intense today white blood cell count de-escalated from 11- 8.5 BUN creatinine 35/2.4 blood cultures no growth in 24 hours previous blood culture grew Staphylococcus aureus in May of this year 09/09: Patient not quite back to baseline but feeling much better today decreased pain and redness of the lower extremities blood cultures no growth in 24 hour Review of systems: No headache diplopia blurred vision No chest pain palpitations wheezing or shortness a breath No nausea vomiting diarrhea No abdominal pain Physical exam: Elderly male appearing older than 54 years of age HEENT unremarkable Unlabored respirations Abdomen nontender bowel sounds present Extremities have extensive chronic venous stasis from mid calf distally much improved erythema involving the heels and dorsum of the foot bilaterally Assessment and plan: 1. Right lower extremity cellulitis / ulceration. * treated with IV vancomycin and Zosyn * follow cultures. * Consult Wound Care. Appreciate * 2. Sepsis secondary to cellulitis Nausea, vomiting, chills, leukocytosis, elevated procalcitonin. Resolved 3. Elevated troponin, without arrhythmias on telemetry or signs of acute coronary syndrome on EKG or symptoms * Suspect elevated due to renal failure and acute illness. * Ultimately will need a workup outpatient 4. Acute kidney injury superimposed on chronic stage 3b kidney disease. * Hold diuretics and lisinopril. * Hydrate IV and follow. 5. Prolonged QTC. Follow and avoid interacting medications. 6. CHF. Compensated. 7. Diabetes mellitus, type 2. * Sliding scale * diabetic diet. * hold metformin given renal failure. 8. Hypertension. Continue routine Amlodipine and carvedilol, hold lisinopril and chlorthalidone given acute kidney injury. DVT prophylaxis: * Enoxaparin renally dose Code status: * Full code. The patient clearly expresses this medical wish. His children are his surrogate decision makers. Disposition: * Change to inpatient * Anticipate 3 more days of hospitalization * Forecast 70% probability that patient will be discharged 09/11, 30% chance that patient can be discharged Sunday 09/10 35 minutes were involved in management this patient including [id number] evaluation direct physical examination review of records and current objective laboratory Exam Vital Signs (past 8 hours): - 09/09/24 08:00 09/09/24 08:20 09/09/24 12:00 Temperature 97.9 F 97.3 F L Pulse Rate 72 74 68 Respiratory Rate 17 17 Blood Pressure 145/97 H 145/97 H 131/83 Pulse Oximetry 93 97 Oxygen Flow Rate 3 0 Oxygen Delivery Method Nasal Cannula Oxygen Flow Rate 0 Objective Labs 09/08/24 04:50 09/08/24 04:50 Labs: Laboratory Results - last 24 hr 09/08/24 09/08/24 09/09/24 16:49 21:09 08:20 POC Whole Bld Glucose 193 H 225 H 194 H 09/09/24 12:02 POC Whole Bld Glucose 236 H [facility] Medical History COVID Hypertension Ulcer of right leg Congestive heart failure Diabetes mellitus Ulcer of left lower leg Surgical History History of foot surgery Family History Father Myocardial infarction Mother Diabetes mellitus Brother Diabetes mellitus Social History household members: spouse and children alcohol intake: never Assessment & Plan Time-Based Coding :: [TOTAL MINUTES] spent with patient and on the chart (including review of chart, obtaining history, exam, reviewing outside data, placing orders, documenting exam and treatment plan, and counseling patient) on [DATE]. Quality VTE Deep Vein Thrombosis/Pulmonary Embolism Present on Admission: No
[2024-09-09 15:05] LABS: Estimated Glomerular Filt Rate 33 mL/min (>60)
--- NOTE | 2024-09-09 15:12 | DIET.PN1 ---
Dietary Progress Note Assessment: f/u Met with pt at bedside. Reports excess intake of regular juice increasing BG. Has had previous educ multiple times on other nutritional dietary aspects for BG management. Pt describes being excessively thirsty so its difficult to resist high CHO beverages and consequently has a lot. Understands it is causing high BG. Has medication and BG meter at home. Ht: 180.34 cm Wt: 135.5 kg BMI: 42.7 Last BM: 09/07/24 (09/07/24 18:46) MNA: 14 Titi Score: 22 Diet: 09/07/24 Breakfast Carbohydrate Consistent Diet Diet Modifications: Carbohydrate level: Large (4 CHO) Reflex DM orders: No 09/07/24 11:35 NPO Diet Diet Modifications: NPO Type: NPO except for Meds Nutrition Percent Meal Consumed 50% 09/09/24 09:56 Percent Meal Consumed 50% 09/08/24 13:00 Labs: RBC 4.75 X10^6/uL (4.5-5.9) 09/08/24 04:50 Hgb 11.6 g/dL (13.5-17.5) L 09/08/24 04:50 Hct 36.0 % (41-53) L 09/08/24 04:50 Creatinine 2.31 mg/dL (0.66-1.25) H 09/09/24 12:49 Hemoglobin A1c 10.8 % (4.0-6.0) H 09/08/24 04:50 Lactate 1.7 mmol/L (0.7-2.1) 09/07/24 10:55 Nutrition Diagnosis: Altered nutrition related lab values (A1c) r/t excessive carb intake aeb pt reports excess juice consumption d/t excessive thirst and A1c 10.8% Interventions: -Discussed beverages alternatives and family support, keeping juice out of the house -Discussed pt meeting with DM educ for support, pt denies -Discussed nutrition with wound healing - hx [id number] EER: 45-60 CHO at meals Monitoring/Evaluations: BG Electronically Signed by: Guerline Rivera 09/09/24 15:12 Clinical Dietitian [address] [id number]
[2024-09-09] MEDS: VANCOMYCIN 2,000 MG/400 ML PIGGYBACK 200 MG IV (16:18)
[2024-09-09 17:33] LABS: Blood Urea Nitrogen 37 mg/dL (9-20); Calcium 8.0 mg/dL (8.4-10.2); Carbon Dioxide 19 mmol/L (22-32); Chloride 106 mmol/L (98-107); Estimated Glomerular Filt Rate 35 mL/min (>60); Glucose 232 mg/dL (70-99); HEMOLYSIS < 15 (0-50); Potassium 4.3 mmol/L (3.4-5.1); Sodium 135 mmol/L (137-145)
[2024-09-10] MEDS: PIPERACILLIN/TAZO 3.375 GM in SODIUM CHLORIDE 0.9% 100 ML IV (02:50)
[2024-09-10 04:00] VITALS: BP 145/97; PULSE 81; RESP 16; TEMP 36.4; O2SAT 95
[2024-09-10] MEDS: SODIUM CHLORIDE 0.45% 1,000 ML 100 ML IV (06:19)
[2024-09-10 08:00] VITALS: BP 160/93; PULSE 78; RESP 16; TEMP 36.7; O2SAT 98
[2024-09-10] MEDS: ENOXAPARIN 40 MG/0.4 ML SYRINGE SUBCUT (08:05)
[2024-09-10 08:06] VITALS: BP 160/93; PULSE 84
[2024-09-10] MEDS: AMLODIPINE 5 MG TABLET 10 MG PO (08:06)
[2024-09-10] MEDS: INSULIN LISPRO 100 UNIT/ML 3ML VIAL SUBCUT (08:06)
--- NOTE | 2024-09-10 10:40 | P.DS_ITS ---
History of Present Illness History of Present Illness Date Patient Seen: 09/10/24 Chief complaint: Vomiting, chills for 1.5days Narrative: Chief complaint: Cellulitis of lower extremities with vomiting rigors and fevers for 2 days History of present illness: 09/07: 54-year-old man with diabetes and neuropathy With chronic kidney disease under the primary care of Dr. Ovalles of [facility] and wound care clinic in [place] for a right lower extremity ulceration and left heel ulcer. He presented to the emergency department with chills, nausea and vomiting for the past 2 days and states that the garcia has gotten progressively more tender and painful in the past few days, presented to the emergency department tonight for evaluation, found to have white blood count elevated 11.4, procalcitonin 5.96, lactate 1.7 with initial troponin 0.073 and repeat 0.062. He denies chest pain or breathing problems. He is administered vancomycin and Zosyn and is admitted for further management and evaluation. Hospital course: 09/08: Overnight no fevers or chills no episodes of vomiting. Pain in his lower extremities is less intense today white blood cell count de-escalated from 11- 8.5 BUN creatinine 35/2.4 blood cultures no growth in 24 hours previous blood culture grew Staphylococcus aureus in May of this year 09/09: Patient not quite back to baseline but feeling much better today decreased pain and redness of the lower extremities blood cultures no growth in 24 hour Review of systems: No headache diplopia blurred vision No chest pain palpitations wheezing or shortness a breath No nausea vomiting diarrhea No abdominal pain Physical exam: Elderly male appearing older than 54 years of age HEENT unremarkable Unlabored respirations Abdomen nontender bowel sounds present Extremities have extensive chronic venous stasis from mid calf distally much improved erythema involving the heels and dorsum of the foot bilaterally Assessment and plan: 1. Right lower extremity cellulitis / ulceration. * treated with IV vancomycin and Zosyn improved de-escalated to Cipro and doxycycline * Wound culture Gram-negative rods 3. Elevated troponin, without arrhythmias on telemetry or signs of acute coronary syndrome on EKG or symptoms * Suspect elevated due to renal failure and acute illness. * Ultimately will need a workup outpatient * 4. Acute kidney injury superimposed on chronic stage 3b kidney disease. * Resolved . 5. Prolonged QTC. Hold atorvastatin until antibiotics are completed at home then resume 6. CHF. Compensated. 7. Diabetes mellitus, type 2. * Sliding scale * diabetic diet. * Follow up PCP to determine risks and benefits of restarting metformin 8. Hypertension. Resume home antihypertensives except lisinopril DVT prophylaxis: * Enoxaparin renally dose Code status: * Full code. The patient clearly expresses this medical wish. His children are his surrogate decision makers. Disposition: * Discharge to home * Deescalate to oral Cipro and doxycycline * Follow up with Wound Care follow up on culture and sensitivity Discharge Providers Provider Date of admission: 09/09/24 12:57 Discharge Date: 09/10/24 Primary care physician: Toño Ovalles MD Consults: 09/08/24 02:29 Consult to Dietitian, Adult Urgent Comment: Reason For Exam: chronic BLE wounds Consult to Wound Care Routine Comment: Consulting Provider: [facility] Discharge provider: Miles Casas MD Exam Vital Signs (past 8 hours): - 09/10/24 04:00 09/10/24 08:00 09/10/24 08:06 Temperature 97.6 F 98.1 F Pulse Rate 81 78 84 Respiratory Rate 16 16 Blood Pressure 145/97 H 160/93 H 160/93 H Pulse Oximetry 95 98 Oxygen Flow Rate 2 Oxygen Delivery Method Nasal Cannula Oxygen Flow Rate 2 Objective Labs 09/08/24 04:50 09/09/24 12:49 Labs: Laboratory Results - last 24 hr 09/09/24 09/09/24 09/09/24 12:02 12:49 12:49 Sodium 135 L Potassium 4.3 Chloride 106 Carbon Dioxide 19 L BUN 37 H Creatinine 2.31 H 2.19 H Estimated GFR 33 L BUN/Creatinine Ratio Glucose POC Whole Bld Glucose 236 H Calcium 09/09/24 09/09/24 09/09/24 12:49 16:42 21:05 Sodium Potassium Chloride Carbon Dioxide BUN Creatinine Estimated GFR 35 L BUN/Creatinine Ratio 16.9 Glucose 232 H POC Whole Bld Glucose 247 H 224 H Calcium 8.0 L 09/10/24 07:51 Sodium Potassium Chloride Carbon Dioxide BUN Creatinine Estimated GFR BUN/Creatinine Ratio Glucose POC Whole Bld Glucose 221 H Calcium PFSH Medical History COVID Hypertension Ulcer of right leg Congestive heart failure Diabetes mellitus Ulcer of left lower leg Surgical History History of foot surgery Family History Father Myocardial infarction Mother Diabetes mellitus Brother Diabetes mellitus Social History household members: spouse and children alcohol intake: never Discharge Plan Discharge Plan Patient Disposition: Home Discharge orders & Medications Prescriptions: New doxycycline hyclate 100 mg capsule 100 mg PO BID Qty: 14 0RF ciprofloxacin HCl [Cipro] 500 mg tablet 500 mg PO BID Qty: 14 0RF Continued amlodipine 10 mg Tablet 10 mg PO DAILY insulin lispro [Humalog KwikPen Insulin] 100 unit/mL insulin pen 12 - 15 unit SUBCUT TID Patient Comments: [NO ORIGINAL SIG] ezetimibe 10 mg tablet 10 mg PO DAILY Jardiance 10 mg tablet 10 mg PO DAILY insulin glargine U-300 conc [Toujeo SoloStar U-300 Insulin] 300 unit/mL (1.5 mL) insulin pen 30 unit SUBCUT BID Patient Comments: [NO ORIGINAL SIG] carvedilol 25 mg Tablet 12.5 mg PO Q12H Discontinued atorvastatin 80 mg tablet 80 mg PO DAILY Follow up/Referrals: Toño Ovalles MD [Primary Care Provider, Family Practice] Skin/Wound/Dressing Care Other wound treatment: Follow up with Dr. Arenas Visit Report/Discharge Packet Stand Alone Forms: Patient Portal/API Discharge Data Primary Care Provider: Toño Ovalles Quality VTE Deep Vein Thrombosis/Pulmonary Embolism Present on Admission: No
[2024-09-10 10:42] VITALS: O2SAT 97
== END 2024-09-10 12:20 | disposition home or self-care (01) | DRG 720 ==
LOC: ED 13:40 → AC 17:01
PROVIDERS: Internal Medicine; Physician Assistant; Admitting Provider Internal Medicine; Emergency Provider Family Medicine; PCP Family Medicine; Referring Provider Family Medicine; Visit Provider Internal Medicine
DX: A41.9 Sepsis, unspecified organism (principal); L03.115 Cellulitis of right lower limb; N17.9 Acute kidney failure, unspecified; I50.9 Heart failure, unspecified; E11.22 Type 2 diabetes mellitus with diabetic chronic kidney disease; N18.32 Chronic kidney disease, stage 3b; I45.81 Long QT syndrome; I13.0 Hypertensive heart and chronic kidney disease with heart failure and stage 1 through stage 4 chronic kidney disease, or unspecified chronic kidney disease; E11.621 Type 2 diabetes mellitus with foot ulcer; L97.422 Non-pressure chronic ulcer of left heel and midfoot with fat layer exposed; L97.812 Non-pressure chronic ulcer of other part of right lower leg with fat layer exposed; E11.42 Type 2 diabetes mellitus with diabetic polyneuropathy; I87.2 Venous insufficiency (chronic) (peripheral); E11.622 Type 2 diabetes mellitus with other skin ulcer; R79.89 Other specified abnormal findings of blood chemistry; Z79.4 Long term (current) use of insulin; Z79.84 Long term (current) use of oral hypoglycemic drugs; Z87.891 Personal history of nicotine dependence
CPT/HCPCS: 36415; 71045; 73590; 80048; 80053; 81001; 82550; 82565; 82962; 83036; 83605; 83690; 84145; 84484; 85025; 85610; 85730; 87040; 87070; 87075; 87077; 87186; 87205; 87637; 93005; 93925; 96365; 99284; G0378; J0131; J1650; J1815; J2543; J7050

== ENCOUNTER 2024-10-13 07:51 | Emergency (ER) | payer OTHER, SELFPAY ==
[2024-02-23 07:50] VITALS: PULSE 97; RESP 17; O2SAT 97
[2024-09-07 18:46] VITALS: BMI 42.7
[2024-10-13] VITALS (13 sets, daily range): BP systolic 149–186; BP diastolic 91–112; PULSE 76–87; RESP 7–21; TEMP 36.3; O2SAT 92–97; BMI 41.8
--- NOTE | 2024-10-13 09:05 | DI.RAD.S_ITS ---
PROCEDURE: XR CHEST 1V INDICATIONS: Chest Pain TECHNIQUE: One view of the chest was acquired. COMPARISON: [facility], CR, XR CHEST 1V, 09/07/2024, 11:51. FINDINGS: Surgical changes and devices: Remote CABG Lungs and pleura: Suspect mild interstitial pulmonary edema. Mediastinum: Mediastinal contours appear normal. Heart size is enlarged. Bones and chest wall: No suspicious bony lesions. Overlying soft tissues appear unremarkable. IMPRESSION: Suspect mild congestive heart failure exacerbation. Dictated by: Tod Jose M.D. on 10/13/2024 at 9:41 Approved by: Tod Jose M.D. on 10/13/2024 at 9:43
--- NOTE | 2024-10-13 09:05 | EKG_ITS ---
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
--- NOTE | 2024-10-13 09:12 | ED.SOB ---
HPI - SOB/Dyspnea General Chief Complaint: Shortness of Breath/Dyspnea Stated Complaint: SOB, Retaining water in stomach and legs x 3 days Time Seen by Provider: 10/13/24 09:05 Source: patient Mode of arrival: Ambulatory Limitations: no limitations History of Present Illness HPI Narrative: Patient is a 54-year-old male history of diabetes neuropathy chronic kidney disease, coronary artery disease with a three-vessel CABG 3 months ago at [facility] presenting today with shortness of breath. He reports that over the last 4 days he has had increasing shortness of breath worse with exertion. He denies any kind of orthopnea. He feels bilateral swelling in both legs and in his abdomen. His lower extremities are always wrapped due to edema. He denies any fever chills cough chest pain. He was seen by his door furring installer about a month ago who took him off the Lasix. He was recently admitted to the hospital September 07 through September 10 for cellulitis. He reports that that has improved. He is not on any anticoagulation Related Data Home Medications ?Medication ?Instructions ?Recorded ?Confirmed amlodipine 10 mg tablet 10 mg PO DAILY 03/14/18 09/09/24 insulin lispro 100 unit/mL 12 - 15 unit SUBCUT TID 09/23/22 09/09/24 subcutaneous pen (Humalog KwikPen (U-100) Insulin) carvedilol 25 mg tablet 12.5 mg PO Q12H 09/09/24 09/09/24 empagliflozin 10 mg tablet 10 mg PO DAILY 09/09/24 09/09/24 (Jardiance) ezetimibe 10 mg tablet 10 mg PO DAILY 09/09/24 09/09/24 insulin glargine U-300 conc 300 30 unit SUBCUT BID 09/09/24 09/09/24 unit/mL (1.5 mL) subcutaneous pen (Toujeo SoloStar U-300 Insulin) Previous Rx's ?Medication ?Instructions ?Recorded ciprofloxacin HCl 500 mg tablet 500 mg PO BID #14 tabs 09/10/24 (Cipro) doxycycline hyclate 100 mg capsule 100 mg PO BID #14 caps 09/10/24 furosemide 20 mg tablet (Lasix) 20 mg PO DAILY #10 tabs 10/13/24 Allergies Allergy/AdvReac Type Severity Reaction Status Date / Time No Known Drug Allergies Allergy Verified 10/13/24 08:18 Patient History Medical History COVID Hypertension Ulcer of right leg Congestive heart failure Diabetes mellitus Ulcer of left lower leg Surgical History History of foot surgery Family History Father Myocardial infarction Mother Diabetes mellitus Brother Diabetes mellitus Social History household members: spouse and children alcohol intake: never tobacco type: cigarettes alcohol intake frequency: other Exam Initial Vital Signs Initial Vital Signs: Vital Signs Temperature 97.3 F L 10/13/24 08:18 Pulse Rate 82 10/13/24 08:18 Respiratory Rate 20 10/13/24 08:18 Blood Pressure 155/97 H 10/13/24 08:18 Pulse Oximetry 97 10/13/24 08:18 Oxygen Delivery Method Room Air 10/13/24 08:18 GENERAL: Alert well-appearing 54-year-old male HEENT: Head atraumatic,EOMI, pupils reactive, face symmetric, moist mucous membranes CARDIOVASCULAR: Regular rate and rhythm without murmurs, rubs or gallops. RESPIRATORY: Slightly decreased breath sounds bilaterally mild tachypnea no conversational dyspnea ABDOMEN: Soft, nontender. Normoactive bowel sounds all 4 quadrants. No guarding or rebound. EXTREMITIES: Normal range of motion bilateral lower extremity edema +3 legs are currently wrapped NEUROLOGICAL: Alert and oriented x4.Normal gait and speech. Cranial nerves II through XII grossly intact. No facial droop SKIN: Warm, dry, no laceration, no petechiae, no rashes or lesions. Course Orders Ordered: ED Orders 10/13/24 08:42 Complete Blood Count AUTO DIFF Stat Comprehensive Metabolic Panel Stat Lipase Stat Magnesium Stat NT-proBNP (BNP-Adult 18+) Stat PTT Partial Thromboplastin Sonny Stat Prothrombin Time INR Stat Troponin & CK Cardiac Panel Stat 10/13/24 09:05 XR chest 1V Stat EKG-12 Lead Stat 10/13/24 09:36 US periph venous low extrem bi Stat 10/13/24 11:27 Trop I [Troponin I] Stat 10/13/24 12:50 EKG-12 Lead Routine Discontinued Medications Aspirin (Aspirin 81 Mg Chew Tab) 324 mg PO NOW ONE Stop: 10/13/24 09:06 Last Admin: 10/13/24 13:25 Dose: Not Given Documented By: MELVIN Furosemide (Furosemide 40 Mg/4 Ml Vial) 40 mg IV NOW ONE Stop: 10/13/24 09:34 Last Admin: 10/13/24 10:36 Dose: 40 mg Documented By: Vital Signs Vital signs: Vital Signs - 8 hr 10/13/24 08:18 10/13/24 08:56 10/13/24 08:56 Temperature 97.3 F L Pulse Rate 82 81 Respiratory Rate 20 12 Blood Pressure 155/97 H 149/91 H Pulse Oximetry 97 95 Oxygen Delivery Method Room Air Oxygen Flow Rate 10/13/24 09:00 10/13/24 09:00 10/13/24 09:30 Temperature Pulse Rate 78 79 Respiratory Rate 17 7 L Blood Pressure 151/93 H Pulse Oximetry 93 95 Oxygen Delivery Method Room Air Oxygen Flow Rate 10/13/24 09:30 10/13/24 10:00 10/13/24 10:00 Temperature Pulse Rate 80 Respiratory Rate 21 Blood Pressure 180/112 H 171/111 H Pulse Oximetry 93 Oxygen Delivery Method Oxygen Flow Rate 10/13/24 10:30 10/13/24 10:30 10/13/24 11:00 Temperature Pulse Rate 76 82 Respiratory Rate Blood Pressure 175/107 H Pulse Oximetry 94 97 Oxygen Delivery Method Room Air Oxygen Flow Rate 10/13/24 11:00 10/13/24 11:30 10/13/24 11:30 Temperature Pulse Rate 77 Respiratory Rate Blood Pressure 186/111 H 181/101 H Pulse Oximetry 93 Oxygen Delivery Method Oxygen Flow Rate 10/13/24 12:00 10/13/24 12:00 10/13/24 12:30 Temperature Pulse Rate 79 87 Respiratory Rate Blood Pressure 172/104 H Pulse Oximetry 96 97 Oxygen Delivery Method Oxygen Flow Rate 10/13/24 12:30 10/13/24 13:00 10/13/24 13:00 Temperature Pulse Rate 79 Respiratory Rate 16 18 Blood Pressure 171/95 H 168/111 H Pulse Oximetry 92 Oxygen Delivery Method Nasal Cannula Oxygen Flow Rate 0.5 10/13/24 13:10 10/13/24 13:10 10/13/24 13:24 Temperature Pulse Rate 80 86 Respiratory Rate 18 20 Blood Pressure 155/94 H Pulse Oximetry 96 96 Oxygen Delivery Method Oxygen Flow Rate MDM - SOB/Dyspnea Lab Data 10/13/24 08:42 10/13/24 08:42 Labs: Lab Results 10/13/24 10/13/24 Range/Units 08:42 11:27 WBC 8.1 (4.5-11.0) X10^3/uL RBC 4.84 (4.5-5.9) X10^6/uL Hgb 12.3 L (13.5-17.5) g/dL Hct 37.4 L (41-53) % MCV 77.3 L (80-100) fL MCH 25.3 L (26-34) PG MCHC 32.7 (30-36) % RDW 18.7 H (11.6-14.8) % Plt Count 249 (150-400) X10^3/uL Neut % (Auto) 64.9 (50-75) % Lymph % (Auto) 23.5 L (25-40) % [place] % (Auto) 6.8 (3-14) % Eos % (Auto) 3.9 (2-4) % Baso % (Auto) 0.9 (0-2) % Neut # (Auto) 5300 (8570-9826) /uL Lymph # (Auto) 1900 (1616-1657) /uL [place] # (Auto) 500 (0-900) /uL Eos # (Auto) 300 (0-450) /uL Baso # (Auto) 100 (0-100) /uL PT 10.9 (9.4-12.5) SECONDS INR 1.0 (0.9-1.3) APTT 21 L (25.1-36.5) SECONDS Sodium 138 (137-145) mmol/L Potassium 4.7 (3.4-5.1) mmol/L Chloride 109 H (98-107) mmol/L Carbon Dioxide 20 L (22-32) mmol/L BUN 36 H (9-20) mg/dL Creatinine 2.69 H (0.66-1.25) mg/dL Estimated GFR 27 L (>60) mL/min BUN/Creatinine Ratio 13.4 (6-22) Glucose 228 H (70-99) mg/dL Calcium 8.2 L (8.4-10.2) mg/dL Magnesium 2.2 (1.6-2.3) mg/dL Total Bilirubin 0.7 (0.2-1.3) mg/dL AST 36 (17-59) IU/L ALT 16 (<50) IU/L Alkaline Phosphatase 87 (38-126) U/L Total Creatine Kinase 137 (55-170) U/L Troponin I 0.030 0.022 (0.01-0.034) ng/mL NT-Pro-B Natriuret Pep 2570 H (<125) pg/mL Total Protein 7.2 (6.3-8.2) g/dL Albumin 3.4 L (3.5-5.0) g/dL Globulin 3.8 (1.7-4.1) g/dL Albumin/Globulin Ratio 0.9 L (1.0-2.8) Lipase 129 (23-300) U/L Imaging Data Chest x-ray: Radiologist's Impression: PROCEDURE: XR CHEST 1V INDICATIONS: Chest Pain TECHNIQUE: One view of the chest was acquired. COMPARISON: [facility], , XR CHEST 1V, 09/07/2024, 11:51. FINDINGS: Surgical changes and devices: Remote CABG Lungs and pleura: Suspect mild interstitial pulmonary edema. Mediastinum: Mediastinal contours appear normal. Heart size is enlarged. Bones and chest wall: No suspicious bony lesions. Overlying soft tissues appear unremarkable. IMPRESSION: Suspect mild congestive heart failure exacerbation. Dictated by: Tod Jose M.D. on 10/13/2024 at 9:41 US - DVT: Radiologist's Impression: PROCEDURE: US PERIPH VENOUS LOW EXTREM BI INDICATIONS: r/o dvt TECHNIQUE: Real-time imaging, as well as color and pulse Doppler interrogation, were performed of the deep veins of both legs from the inguinal ligament to the popliteal fossa, with documentation of the visualized calf veins. COMPARISON: None. FINDINGS: Right: The common femoral, femoral, popliteal, and the visualized calf veins are normally compressible, and free of intraluminal thrombus. Color and pulse Doppler demonstrate normal phasic intravascular flow. There is normal augmentation response to distal compression maneuver. Left: The common femoral, femoral, popliteal, and the visualized calf veins are normally compressible, and free of intraluminal thrombus. Color and pulse Doppler demonstrate normal phasic intravascular flow. There is normal augmentation response to distal compression maneuver. IMPRESSION: Negative bilateral lower extremity duplex venous ultrasound for DVT. Dictated by: Tod Jose M.D. on 10/13/2024 at 10:36 ECG Data Attestation: I personally reviewed and interpreted this ECG as follows: Prior ECG tracings: available for review Interpretation: Sinus rhythm rate 87 ME interval 196 QRS 116 ME interval 512 PVCs noted MDM Narrative Medical decision making narrative: MDM CC: Shortness of breath Complicating co-morbidities: Chronic kidney disease insulin-dependent diabetic 80s coronary artery disease Data collected from: Previous ED visits/admission admitted September 07 through September 10 with cellulitis of right lower leg Medical records reviewed: [ ] Differential considered: Congestive heart failure ACS pulmonary embolism pneumonia Exam documented above, pertinent findings include: Bilateral pitting edema decreased breath sounds bilaterally mild respiratory distress Lab Test results independently reviewed as above. Pertinent findings: CBC no leukocytosis no anemia CMP shows stable electrolytes creatinine is slightly elevated but still around baseline 2.69 previously 2.19 glucose 228 Troponin 0.030-->0.022 BNP 2570, previously 1560 Independently reviewed EKG as above Sinus rhythm PVC noted Imaging studies independently reviewed: Chest x-ray mild congestive heart failure exacerbation Ultrasound negative for DVT Consultations: None Treatments: Lasix 40 mg Re-evaluations: Patient has urinated 2-1/2 L of urine. He was put on oxygen most likely he fell asleep. He is not actually hypoxic. He ambulated with out issue does not require oxygen Discussion: Patient 54-year-old male multiple comorbidities including chronic kidney disease , coronary artery disease, diabetes presenting today with increasing shortness of breath. He has dyspnea with exertion. No fever or chills. Blood work overall appears stable slightly elevated BNP. I do suspect that this is more of a CHF exacerbation however pulmonary embolism can not fully be ruled out however Bilateral \ultrasounds are negative for DVT. Patient's symptoms are most consistent with CHF with fluid retention and bilateral legs and abdomen along with elevated BNP and chest x-ray At this time patient is not hypoxic he is downtrending troponins can be managed outpatient. We will restart him on Lasix Discharge Plan Departure Patient Disposition: Home Clinical Impression: CHF (congestive heart failure) Instructions: DI for Heart Failure Activity Restrictions/Additional Instructions: *You have been diagnosed with CHF *What to do: At this time recommend that that UA yourself daily monitor salt intake *Continue to take medications as directed Lasix 20 mg once a day for 5 days *Follow up with your primary care provider in 2-3 days or call [phone] Please call your door furring installer to schedule follow up appoint *Return to ER if you should have increasing shortness of breath weakness chest pain or any new, worsening or concerning symptoms Prescriptions: New furosemide [Lasix] 20 mg tablet 20 mg PO DAILY Qty: 10 0RF No Action amlodipine 10 mg Tablet 10 mg PO DAILY insulin lispro [Humalog KwikPen Insulin] 100 unit/mL insulin pen 12 - 15 unit SUBCUT TID Patient Comments: [NO ORIGINAL SIG] ezetimibe 10 mg tablet 10 mg PO DAILY Jardiance 10 mg tablet 10 mg PO DAILY insulin glargine U-300 conc [Toujeo SoloStar U-300 Insulin] 300 unit/mL (1.5 mL) insulin pen 30 unit SUBCUT BID Patient Comments: [NO ORIGINAL SIG] carvedilol 25 mg Tablet 12.5 mg PO Q12H doxycycline hyclate 100 mg capsule 100 mg PO BID Qty: 14 0RF ciprofloxacin HCl [Cipro] 500 mg tablet 500 mg PO BID Qty: 14 0RF Referrals: Toño Ovalles MD [Primary Care Provider, Family Practice] Stand Alone Forms: Patient Portal/API
[2024-10-13 09:13] LABS: INR 1.0 (0.9-1.3); Prothrombin Time 10.9 SECONDS (9.4-12.5)
[2024-10-13 09:14] LABS: Add Manual Diff / Slide Review NO; Hematocrit 37.4 % (41-53); Hemoglobin 12.3 g/dL (13.5-17.5); Lymphocytes Absolute Auto 1900 /uL (1100-4500); Mean Corpuscular HGB Conc 32.7 % (30-36); Mean Corpuscular Hemoglobin 25.3 PG (26-34); Mean Corpuscular Volume 77.3 fL (80-100); Platelet Count 249 X10^3/uL (150-400)
[2024-10-13 09:16] LABS: PTT Partial Thromboplastin Tim 21 SECONDS (25.1-36.5)
[2024-10-13 09:23] LABS: Alanine Aminotransferase 16 IU/L (<50); Albumin 3.4 g/dL (3.5-5.0); Albumin Globulin Ratio 0.9 (1.0-2.8); Alkaline Phosphatase 87 U/L (38-126); Blood Urea Nitrogen 36 mg/dL (9-20); Calcium 8.2 mg/dL (8.4-10.2); Carbon Dioxide 20 mmol/L (22-32); Chloride 109 mmol/L (98-107); Creatine Kinase 137 U/L (55-170); Estimated Glomerular Filt Rate 27 mL/min (>60); Globulin 3.8 g/dL (1.7-4.1); Glucose 228 mg/dL (70-99); Lipase 129 U/L (23-300); Magnesium 2.2 mg/dL (1.6-2.3); Potassium 4.7 mmol/L (3.4-5.1); Sodium 138 mmol/L (137-145); Total Protein 7.2 g/dL (6.3-8.2)
[2024-10-13 09:25] LABS: HEMOLYSIS 64 (0-50)
[2024-10-13 09:35] LABS: NT-proBNP (BNP-Adult 18+) 2570 pg/mL (<125); Troponin I 0.030 ng/mL (0.01-0.034)
--- NOTE | 2024-10-13 09:36 | DI.US.S_ITS ---
PROCEDURE: US PERIPH VENOUS LOW EXTREM BI INDICATIONS: r/o dvt TECHNIQUE: Real-time imaging, as well as color and pulse Doppler interrogation, were performed of the deep veins of both legs from the inguinal ligament to the popliteal fossa, with documentation of the visualized calf veins. COMPARISON: None. FINDINGS: Right: The common femoral, femoral, popliteal, and the visualized calf veins are normally compressible, and free of intraluminal thrombus. Color and pulse Doppler demonstrate normal phasic intravascular flow. There is normal augmentation response to distal compression maneuver. Left: The common femoral, femoral, popliteal, and the visualized calf veins are normally compressible, and free of intraluminal thrombus. Color and pulse Doppler demonstrate normal phasic intravascular flow. There is normal augmentation response to distal compression maneuver. IMPRESSION: Negative bilateral lower extremity duplex venous ultrasound for DVT. Dictated by: Tod Jose M.D. on 10/13/2024 at 10:36 Approved by: Tod Jose M.D. on 10/13/2024 at 10:36
[2024-10-13] MEDS: FUROSEMIDE 40 MG/4 ML VIAL IV (10:36)
[2024-10-13 11:57] LABS: Troponin I 0.022 ng/mL (0.01-0.034)
--- NOTE | 2024-10-13 12:50 | EKG_ITS ---
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
== END 2024-10-13 13:59 | disposition home or self-care (01) ==
PROVIDERS: Emergency Provider Emergency Medicine; PCP Family Medicine
DX: I50.9 Heart failure, unspecified (principal); E11.9 Type 2 diabetes mellitus without complications; Z86.79 Personal history of other diseases of the circulatory system
CPT/HCPCS: 36415; 71045; 80053; 82550; 83690; 83735; 83880; 84484; 85025; 85610; 85730; 93005; 93970; 96374; 99284; J1938

== ENCOUNTER 2025-01-13 19:52 | Observation (INO) | payer OTHER, SELFPAY ==
[2024-02-23 07:50] VITALS: PULSE 97; RESP 17; O2SAT 97
[2024-09-07 18:46] VITALS: BMI 42.7
[2025-01-13 20:12] VITALS: BP 151/65; PULSE 90; RESP 16; TEMP 37.5; O2SAT 96; BMI 40.4
--- NOTE | 2025-01-13 21:47 | DI.RAD.S_ITS ---
PROCEDURE: XR FOOT LT MIN 3V INDICATIONS: ulcer TECHNIQUE: 3 views of the foot were acquired. COMPARISON: [facility], CR, XR FOOT LT MIN 3V, 01/07/2024, 9:19. [facility], CR, XR FOOT RT MIN 3V, 08/16/2023, 9:57. FINDINGS: Bones: Stable diminutive appearance of the 5th metatarsal. No bony erosion. Amputation beyond the 4th metatarsal. Soft tissues: No tibiotalar joint effusion. Achilles tendon appears normal. Ulcer overlying the 4th metatarsal head. IMPRESSION: Ulcer overlying the 4th metatarsal head, without bony erosion. Dictated by: Redd Murphy M.D. on 01/13/2025 at 22:22 Approved by: Redd Murphy M.D. on 01/13/2025 at 22:23
--- NOTE | 2025-01-13 21:47 | DI.RAD.S_ITS ---
PROCEDURE: XR FOOT RT MIN 3V INDICATIONS: ulcer TECHNIQUE: 3 views of the foot were acquired. COMPARISON: [facility], CR, XR FOOT LT MIN 3V, 01/07/2024, 9:19. [facility], CR, XR FOOT RT MIN 3V, 08/16/2023, 9:57. FINDINGS: Bones: New reactive bony formation of the 5th metatarsal base. Stable erosion of the 5th metatarsal shaft. New amputation of the 2nd digit beyond the proximal phalanx. Stable abnormal 3rd interphalangeal joint space with bony erosion. Soft tissues: No tibiotalar joint effusion. Achilles tendon appears normal. IMPRESSION: Stable abnormal 3rd interphalangeal joint space with bony erosion, suggestive of chronic osteomyelitis. New reactive bony formation the 5th metatarsal base. Dictated by: Redd Murphy M.D. on 01/13/2025 at 22:23 Approved by: Redd Murphy M.D. on 01/13/2025 at 22:24
--- NOTE | 2025-01-13 21:50 | ED.WOUNDLAC ---
HPI - Wound/Laceration <Kali Barreto MD - Last Filed: 01/13/25 22:46> General Chief Complaint: Wound/Laceration Stated Complaint: Ulcer on both feet/rt foot infection Time Seen by Provider: 01/13/25 20:50 Source: patient Mode of arrival: Wheelchair History of Present Illness HPI narrative: This is a 54-year-old white male with history of diabetes who is being treated by wound care as an outpatient he developed ulcers on bilateral feet last week he was started on Augmentin by the wound care people however this week he says it has gotten worse with the strong foul odor and more pain. He called the wound care people and they said to come to the emergency department. No fevers no chills no chest pain or shortness of breath Related Data Home Medications ?Medication ?Instructions ?Recorded ?Confirmed amlodipine 10 mg tablet 10 mg PO DAILY 03/14/18 09/09/24 insulin lispro 100 unit/mL 12 - 15 unit SUBCUT TID 09/23/22 09/09/24 subcutaneous pen (Humalog KwikPen (U-100) Insulin) carvedilol 25 mg tablet 12.5 mg PO Q12H 09/09/24 09/09/24 empagliflozin 10 mg tablet 10 mg PO DAILY 09/09/24 09/09/24 (Jardiance) ezetimibe 10 mg tablet 10 mg PO DAILY 09/09/24 09/09/24 insulin glargine U-300 conc 300 30 unit SUBCUT BID 09/09/24 09/09/24 unit/mL (1.5 mL) subcutaneous pen (Toujeo SoloStar U-300 Insulin) Previous Rx's ?Medication ?Instructions ?Recorded ciprofloxacin HCl 500 mg tablet 500 mg PO BID #14 tabs 09/10/24 (Cipro) doxycycline hyclate 100 mg capsule 100 mg PO BID #14 caps 09/10/24 furosemide 20 mg tablet (Lasix) 20 mg PO DAILY #10 tabs 10/13/24 Allergies Allergy/AdvReac Type Severity Reaction Status Date / Time No Known Drug Allergies Allergy Verified 01/13/25 20:12 Review of Systems <Kali Barreto MD - Last Filed: 01/13/25 22:46> Review of Systems Narrative: GENERAL: Denies chills, fatigue, malaise, fever, sweats. HEENT: Denies sinus pain, ear pain, sore throat, difficulty swallowing, dizziness. RESPIRATORY: Denies dyspnea, cough, wheezing, hemoptysis, sputum. CARDIOVASCULAR: Denies chest pain, palpitations, orthopnea, edema, GASTROINTESTINAL: Denies nausea, vomiting, abdominal pain, diarrhea, constipation, melena. : Denies dysuria, frequency, incontinence, hematuria, urinary retention. MUSCULOSKELETAL: denies weakness, joint pain, or bony pain SKIN: See HPI NEUROLOGIC: Denies weakness, headache, numbness, change in speech, confusion, seizures, incoordination. PSYCHIATRIC: No concerning psychosocial issues. 12 point review of systems is negative except for those stated above Patient History <Klai Barreto MD - Last Filed: 01/13/25 22:46> Medical History COVID Hypertension Ulcer of right leg Congestive heart failure Diabetes mellitus Ulcer of left lower leg Surgical History History of foot surgery Family History Father Myocardial infarction Mother Diabetes mellitus Brother Diabetes mellitus Social History household members: spouse and children Smoking Status: Former smoker alcohol intake: never Smoking Status: Former smoker tobacco type: cigarettes alcohol intake frequency: other Exam <Kali Barreto MD - Last Filed: 01/13/25 22:46> Narrative Exam Narrative: GENERAL: [] year old patient appears stated age. Well-developed patient, in mild distress. HEAD: Atraumatic. Normocephalic. EYES: Pupils equal round and reactive. Extraocular motions intact. No scleral icterus. No injection or drainage. ENT: Nose without bleeding, purulent drainage. Throat without erythema, tonsillar hypertrophy or exudate. Airway patent. NECK: Trachea midline. Non tender CARDIOVASCULAR: Regular rate and rhythm without murmurs, gallops, or rubs. RESPIRATORY: Clear to auscultation. Breath sounds equal bilaterally. No wheezes, rales, or rhonchi. GASTROINTESTINAL: Abdomen soft, non-tender, nondistended. EXTREMITIES: No edema or joint tenderness. BACK: Nontender without deformity or crepitance. No flank tenderness. NEURO: AOx3. SKIN: Examination both feet reveal ulcers on the dorsal lateral aspect that have a foul-smelling exudate. Distal CMS is intact Initial Vital Signs Initial Vital Signs: Vital Signs Temperature 99.5 F 01/13/25 20:12 Pulse Rate 90 01/13/25 20:12 Respiratory Rate 16 01/13/25 20:12 Blood Pressure 151/65 H 01/13/25 20:12 Pulse Oximetry 96 01/13/25 20:12 Oxygen Delivery Method Room Air 01/13/25 20:12 <Bhavna Walh DO - Last Filed: 01/14/25 01:29> Initial Vital Signs Initial Vital Signs: Vital Signs Temperature 99.5 F 01/13/25 20:12 Pulse Rate 90 01/13/25 20:12 Respiratory Rate 16 01/13/25 20:12 Blood Pressure 151/65 H 01/13/25 20:12 Pulse Oximetry 96 01/13/25 20:12 Oxygen Delivery Method Room Air 01/13/25 20:12 Course <Kali Barreto MD - Last Filed: 01/13/25 22:46> Orders Ordered: ED Orders 01/13/25 21:47 XR foot LT min 3V Stat XR foot RT min 3V Stat EKG-12 Lead Stat 01/13/25 22:12 CRP [C-Reactive Protein Quant] Stat Complete Blood Count AUTO DIFF Stat Comprehensive Metabolic Panel Stat Erythrocyte Sedimentation Rate Stat Lactate (Lactic Acid) Stat Procalcitonin Stat 01/13/25 22:16 Blood Culture Stat 01/13/25 22:25 Wound Culture and Gram Stain Stat Discontinued Medications Cefepime HCl 1 gm/ Sodium (Chloride) 100 mls @ 200 mls/hr IV NOW ONE Stop: 01/14/25 00:34 Last Admin: 01/14/25 01:22 Dose: 200 mls/hr Documented By: BELLE Vancomycin HCl 500 mg/ Sodium (Chloride) 100 mls @ 100 mls/hr IV NOW ONE Stop: 01/14/25 00:34 Vital Signs Vital signs: Vital Signs - 8 hr 01/13/25 20:12 Temperature 99.5 F Pulse Rate 90 Respiratory Rate 16 Blood Pressure 151/65 H Pulse Oximetry 96 Oxygen Delivery Method Room Air <Bhavna Wahl DO - Last Filed: 01/14/25 01:29> Orders Ordered: ED Orders 01/13/25 21:47 XR foot LT min 3V Stat XR foot RT min 3V Stat EKG-12 Lead Stat 01/13/25 22:12 CRP [C-Reactive Protein Quant] Stat Complete Blood Count AUTO DIFF Stat Comprehensive Metabolic Panel Stat Erythrocyte Sedimentation Rate Stat Lactate (Lactic Acid) Stat Procalcitonin Stat 01/13/25 22:16 Blood Culture Stat 01/13/25 22:25 Wound Culture and Gram Stain Stat Discontinued Medications Cefepime HCl 1 gm/ Sodium (Chloride) 100 mls @ 200 mls/hr IV NOW ONE Stop: 01/14/25 00:34 Last Admin: 01/14/25 01:22 Dose: 200 mls/hr Documented By: BELLE Vancomycin HCl 500 mg/ Sodium (Chloride) 100 mls @ 100 mls/hr IV NOW ONE Stop: 01/14/25 00:34 Vital Signs Vital signs: Vital Signs - 8 hr 01/13/25 20:12 Temperature 99.5 F Pulse Rate 90 Respiratory Rate 16 Blood Pressure 151/65 H Pulse Oximetry 96 Oxygen Delivery Method Room Air MDM - Wound/Laceration <Kali Barreto MD - Last Filed: 01/13/25 22:46> Lab Data 01/13/25 22:12 01/13/25 22:12 Labs: Lab Results 01/13/25 01/13/25 Range/Units 20:25 22:12 WBC 7.9 (4.5-11.0) X10^3/uL RBC 4.16 L (4.5-5.9) X10^6/uL Hgb 10.1 L (13.5-17.5) g/dL Hct 31.6 L (41-53) % MCV 75.9 L (80-100) fL MCH 24.4 L (26-34) PG MCHC 32.1 (30-36) % RDW 16.2 H (11.6-14.8) % Plt Count 242 (150-400) X10^3/uL Neut % (Auto) 75.8 H (50-75) % Lymph % (Auto) 13.1 L (25-40) % [place] % (Auto) 8.0 (3-14) % Eos % (Auto) 2.3 (2-4) % Baso % (Auto) 0.8 (0-2) % Neut # (Auto) 6000 (2978-4442) /uL Lymph # (Auto) 1000 L (4011-4883) /uL [place] # (Auto) 600 (0-900) /uL Eos # (Auto) 200 (0-450) /uL Baso # (Auto) 100 (0-100) /uL ESR 53 H (0-15) MM/HR Sodium 139 (137-145) mmol/L Potassium 4.1 (3.4-5.1) mmol/L Chloride 108 H (98-107) mmol/L Carbon Dioxide 22 (22-32) mmol/L BUN 42 H (9-20) mg/dL Creatinine 3.26 H (0.66-1.25) mg/dL Estimated GFR 22 L (>60) mL/min BUN/Creatinine Ratio 12.9 (6-22) Glucose 114 H (70-99) mg/dL POC Whole Bld Glucose 126 H (70-99) mg/dL Lactate 0.8 (0.7-2.1) mmol/L Calcium 8.1 L (8.4-10.2) mg/dL Total Bilirubin 0.5 (0.2-1.3) mg/dL AST 21 (17-59) IU/L ALT 11 (<50) IU/L Alkaline Phosphatase 57 (38-126) U/L C-Reactive Protein 4.9 H (<1.0) mg/dL Total Protein 7.7 (6.3-8.2) g/dL Albumin 3.7 (3.5-5.0) g/dL Globulin 4.0 (1.7-4.1) g/dL Albumin/Globulin Ratio 0.9 L (1.0-2.8) Procalcitonin 0.143 (<0.5) ng/mL MDM Narrative Medical decision making narrative: Patient presented with worsening wounds on bilateral feet. Patient tolerating the taking Augmentin. Labs are pending. Being looks like the patient has a fair urine outpatient therapy my guess would be that he will need to be admitted for IV antibiotics. I was signed out the patient to Dr. wahl for final disposition. <Bhavna Wahl, DO - Last Filed: 01/14/25 01:29> Lab Data Labs: Lab Results 01/13/25 01/13/25 Range/Units 20:25 22:12 WBC 7.9 (4.5-11.0) X10^3/uL RBC 4.16 L (4.5-5.9) X10^6/uL Hgb 10.1 L (13.5-17.5) g/dL Hct 31.6 L (41-53) % MCV 75.9 L (80-100) fL MCH 24.4 L (26-34) PG MCHC 32.1 (30-36) % RDW 16.2 H (11.6-14.8) % Plt Count 242 (150-400) X10^3/uL Neut % (Auto) 75.8 H (50-75) % Lymph % (Auto) 13.1 L (25-40) % [place] % (Auto) 8.0 (3-14) % Eos % (Auto) 2.3 (2-4) % Baso % (Auto) 0.8 (0-2) % Neut # (Auto) 6000 (0984-0515) /uL Lymph # (Auto) 1000 L (7266-0902) /uL [place] # (Auto) 600 (0-900) /uL Eos # (Auto) 200 (0-450) /uL Baso # (Auto) 100 (0-100) /uL ESR 53 H (0-15) MM/HR Sodium 139 (137-145) mmol/L Potassium 4.1 (3.4-5.1) mmol/L Chloride 108 H (98-107) mmol/L Carbon Dioxide 22 (22-32) mmol/L BUN 42 H (9-20) mg/dL Creatinine 3.26 H (0.66-1.25) mg/dL Estimated GFR 22 L (>60) mL/min BUN/Creatinine Ratio 12.9 (6-22) Glucose 114 H (70-99) mg/dL POC Whole Bld Glucose 126 H (70-99) mg/dL Lactate 0.8 (0.7-2.1) mmol/L Calcium 8.1 L (8.4-10.2) mg/dL Total Bilirubin 0.5 (0.2-1.3) mg/dL AST 21 (17-59) IU/L ALT 11 (<50) IU/L Alkaline Phosphatase 57 (38-126) U/L C-Reactive Protein 4.9 H (<1.0) mg/dL Total Protein 7.7 (6.3-8.2) g/dL Albumin 3.7 (3.5-5.0) g/dL Globulin 4.0 (1.7-4.1) g/dL Albumin/Globulin Ratio 0.9 L (1.0-2.8) Procalcitonin 0.143 (<0.5) ng/mL MDM Narrative Medical decision making narrative: Patient presented with worsening wounds on bilateral feet. Patient tolerating the taking Augmentin. Labs are pending. Being looks like the patient has a fair urine outpatient therapy my guess would be that he will need to be admitted for IV antibiotics. I was signed out the patient to Dr. wahl for final disposition. 01/14/25 Dr. Wahl: patient signed out to myself by Dr. Barreto. patient is seen and evaluated by myself with complaint of worsening wounds on his bilateral feet. patient notes some particularly has a wound on the lateral side in his foot the area of the 5th metatarsal which has a wound that has been worsening over the past week he noticed it open up about 2 weeks ago has a blister. He states his other wounds has been present but not rapidly worsening. He has not noted a little bit of new drainage from the wound on the lateral side of his right foot, he has had chills in the last day, he denies chest pain or pressure, no nausea or vomiting. Denies any new GI or urinary symptoms. He notes his renal function is not good. patient notes that he follows with Dr. Guerrero with wound care for the past 2 years at [facility]. he has been on Augmentin for the past week for potential infection. Labs show white count of 7.9 hemoglobin is 10.1 was 12-11 range in October and September, microcytic, platelets are 242 ESR is 53, in the past has ranged between 88 and 67 in 2023. CRP is 4.9 in 2023 was 2.6-3.5 in his highest 6. Chloride is 108 sodium, potassium and CO2 are appropriate BUN 42 creatinine is 3.26 patient typically ranges in the mid 2 point 6-2.4 range as high as 3.4 in May of 2024. glucose is 114 procalcitonin is normal at 0.143 Foot x-ray on the right foot shows stable abnormal 3rd interphalangeal joint space with a runny running suggesting chronic osteomyelitis. Patient's left foot he has not ulcer overlying the 4th metatarsal head without bony erosion. Patient hospitalization for similar changes on x-ray in 2023 that time was has a negative MRI for osteomyelitis but was treated with oral and IV antibiotics. Area where patient is noting the wound that is giving him the most trouble does not show any changes at the 5th mid metatarsal or that wound is located a culture was obtained. spoke with the hospitalist, Dr. Carrillo @ [phone] who accepts for inpatient admission for IV antibiotics. Discharge Plan Departure Patient Disposition: Admitted As Inpatient Clinical Impression: Diabetic foot ulcer, CKD (chronic kidney disease)
--- NOTE | 2025-01-13 22:04 | EKG_ITS ---
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
[2025-01-13 22:30] LABS: Add Manual Diff / Slide Review NO; Hematocrit 31.6 % (41-53); Hemoglobin 10.1 g/dL (13.5-17.5); Lymphocytes Absolute Auto 1000 /uL (1100-4500); Mean Corpuscular HGB Conc 32.1 % (30-36); Mean Corpuscular Hemoglobin 24.4 PG (26-34); Mean Corpuscular Volume 75.9 fL (80-100); Platelet Count 242 X10^3/uL (150-400)
[2025-01-13 22:44] LABS: Alanine Aminotransferase 11 IU/L (<50); Albumin 3.7 g/dL (3.5-5.0); Albumin Globulin Ratio 0.9 (1.0-2.8); Alkaline Phosphatase 57 U/L (38-126); Blood Urea Nitrogen 42 mg/dL (9-20); Calcium 8.1 mg/dL (8.4-10.2); Carbon Dioxide 22 mmol/L (22-32); Chloride 108 mmol/L (98-107); Estimated Glomerular Filt Rate 22 mL/min (>60); Globulin 4.0 g/dL (1.7-4.1); Glucose 114 mg/dL (70-99); HEMOLYSIS < 15 (0-50); Potassium 4.1 mmol/L (3.4-5.1); Sodium 139 mmol/L (137-145); Total Protein 7.7 g/dL (6.3-8.2)
[2025-01-13 22:45] LABS: Lactate (Lactic Acid) 0.8 mmol/L (0.7-2.1)
[2025-01-13 23:01] LABS: Procalcitonin 0.143 ng/mL (<0.5)
[2025-01-14] VITALS (17 sets, daily range): BP systolic 105–163; BP diastolic 59–98; PULSE 60–108; RESP 16–20; TEMP 35.8–36.7; O2SAT 69–98; BMI 40.4
[2025-01-14] MEDS: CEFEPIME 1 GM in SODIUM CHLORIDE 0.9% 100 ML IV (01:22)
[2025-01-14] MEDS: VANCOMYCIN 500 MG in SODIUM CHLORIDE 0.9% 100 ML 100 MG IV (02:14)
--- NOTE | 2025-01-14 03:34 | PM.HP.1 ---
History of Present Illness History of Present Illness Date Patient Seen: 01/14/25 Time Patient Seen: 02:20 Chief complaint: Ulcer on both feet/rt foot infection Narrative: 54 y/o with PMH of diabetes with neuropathy, chronic kidney disease, hypertension, under the primary care of Dr. Ovalles of [facility] and history of chronic bilateral leg wounds - followed in wound care clinic in [place]. He was recently seen several times in the hospital for cellulitis and infected wounds and this time he was referred to hospital by wound care, after he failed PO antibiotic. Not septic. High inflammatory markers, questionable OM in Rt toe. His new wound opened over 5th Rt metatarsal. Treated with antibiotics and admitted for further IV treatment. [facility] Medical History COVID Hypertension Ulcer of right leg Congestive heart failure Diabetes mellitus Ulcer of left lower leg Surgical History History of foot surgery Family History Father Myocardial infarction Mother Diabetes mellitus Brother Diabetes mellitus Social History household members: spouse and children Smoking Status: Former smoker alcohol intake: never Meds Home Medications and Allergies Home Medications ?Medication ?Instructions ?Recorded ?Confirmed ?Type amlodipine 10 mg tablet 10 mg PO DAILY 03/14/18 09/09/24 History insulin lispro 100 unit/mL 12 - 15 unit SUBCUT TID 09/23/22 09/09/24 History subcutaneous pen (Humalog KwikPen (U-100) Insulin) carvedilol 25 mg tablet 12.5 mg PO Q12H 09/09/24 09/09/24 History empagliflozin 10 mg tablet 10 mg PO DAILY 09/09/24 09/09/24 History (Jardiance) ezetimibe 10 mg tablet 10 mg PO DAILY 09/09/24 09/09/24 History insulin glargine U-300 conc 300 30 unit SUBCUT BID 09/09/24 09/09/24 History unit/mL (1.5 mL) subcutaneous pen (Toujeo SoloStar U-300 Insulin) ciprofloxacin HCl 500 mg tablet 500 mg PO BID #14 tabs 09/10/24 Rx (Cipro) doxycycline hyclate 100 mg capsule 100 mg PO BID #14 caps 09/10/24 Rx furosemide 20 mg tablet (Lasix) 20 mg PO DAILY #10 tabs 10/13/24 Rx Allergies Allergy/AdvReac Type Severity Reaction Status Date / Time No Known Drug Allergies Allergy Verified 01/13/25 20:12 Review of Systems Review of Systems Narrative: General - no fever, sweats, possibly had chills Ext / Skin - b/l feet / lower leg chronic wounds, ulcers CVS - w/o chest pain RS - w/o dyspnea ABD - w/o complaints Neuro - chronic b/l feet numbness Exam Vital Signs (past 8 hours): - 01/13/25 20:12 Temperature 99.5 F Pulse Rate 90 Respiratory Rate 16 Blood Pressure 151/65 H Pulse Oximetry 96 Oxygen Delivery Method Room Air Oxygen Delivery Method Room Air Narrative Exam Narrative: General - in no distress Ext / Skin - b/l feet / lower leg wounds, ulcers, cellulitis CVS - RRR RS - normal respiratory effort ABD - obese, not tender Neuro - chronic b/l feet numbness Psych - lucid, normal mood Objective ECG Impression: NSR 91, QTc 494 ms Imaging XRAY FOOT: Radiologist's impression: Stable abnormal 3rd interphalangeal joint space with bony erosion, suggestive of chronic osteomyelitis. Labs 01/13/25 22:12 01/13/25 22:12 Labs: Laboratory Results - last 24 hr 01/13/25 01/13/25 20:25 22:12 WBC 7.9 RBC 4.16 L Hgb 10.1 L Hct 31.6 L MCV 75.9 L MCH 24.4 L MCHC 32.1 RDW 16.2 H Plt Count 242 Neut % (Auto) 75.8 H Lymph % (Auto) 13.1 L [place] % (Auto) 8.0 Eos % (Auto) 2.3 Baso % (Auto) 0.8 Neut # (Auto) 6000 Lymph # (Auto) 1000 L [place] # (Auto) 600 Eos # (Auto) 200 Baso # (Auto) 100 ESR 53 H Sodium 139 Potassium 4.1 Chloride 108 H Carbon Dioxide 22 BUN 42 H Creatinine 3.26 H Estimated GFR 22 L BUN/Creatinine Ratio 12.9 Glucose 114 H POC Whole Bld Glucose 126 H Lactate 0.8 Calcium 8.1 L Total Bilirubin 0.5 AST 21 ALT 11 Alkaline Phosphatase 57 C-Reactive Protein 4.9 H Total Protein 7.7 Albumin 3.7 Globulin 4.0 Albumin/Globulin Ratio 0.9 L Procalcitonin 0.143 Assessment & Plan Assessment and plan (1) Bilateral lower leg cellulitis: Status: Acute (2) Diabetic foot ulcer: Status: Acute (3) Type 2 diabetes mellitus with diabetic polyneuropathy: Status: Acute (4) CKD (chronic kidney disease): Status: Acute (5) Osteomyelitis: Status: Acute Assessment & Plan narrative: Bilateral leg cellulitis, infected diabetic ulcers - vancomycin, Rocephin - wound care - chronic OM DM - Lantus - SS - CCD - Jardiance CKD - renal dosing CHF / HTN - Lasix - Norvasc DVT prophylaxis - Lovenox Patient consented to telemedicine, audio-visual encounter with RN assisting during the exam. Patient located at [place], [place], provider located in [place]. Time-Based Coding :: [TOTAL MINUTES] spent with patient and on the chart (including review of chart, obtaining history, exam, reviewing outside data, placing orders, documenting exam and treatment plan, and counseling patient) on [DATE].
[2025-01-14 04:47] LABS: Add Manual Diff / Slide Review NO; Hematocrit 32.1 % (41-53); Hemoglobin 10.3 g/dL (13.5-17.5); Lymphocytes Absolute Auto 1400 /uL (1100-4500); Mean Corpuscular HGB Conc 32.2 % (30-36); Mean Corpuscular Hemoglobin 24.4 PG (26-34); Mean Corpuscular Volume 75.7 fL (80-100); Platelet Count 237 X10^3/uL (150-400)
[2025-01-14 05:04] LABS: Blood Urea Nitrogen 40 mg/dL (9-20); Calcium 7.9 mg/dL (8.4-10.2); Carbon Dioxide 23 mmol/L (22-32); Chloride 108 mmol/L (98-107); Estimated Glomerular Filt Rate 23 mL/min (>60); Glucose 139 mg/dL (70-99); HEMOLYSIS < 15 (0-50); Potassium 3.6 mmol/L (3.4-5.1); Sodium 140 mmol/L (137-145)
[2025-01-14] MEDS: VANCOMYCIN 1,500 MG/300 ML PIGGYBACK 200 MG IV (05:30)
--- NOTE | 2025-01-14 06:44 | PC.WOUNDPHOT ---
wounds on bilater feet and legs
--- NOTE | 2025-01-14 09:34 | PC.NURSE ---
0500 Vanc administration was not completed in APR by manager ob RN. This RN completed in APR for continuity of care. Charge aware.
[2025-01-14] MEDS: FUROSEMIDE 20 MG TABLET PO (09:38)
[2025-01-14] MEDS: INSULIN GLARGINE 100 UNIT/ML 3ML PEN 24 UNIT SUBCUT ×2 (09:39→20:46)
[2025-01-14] MEDS: ENOXAPARIN 30 MG/0.3 ML SYRINGE SUBCUT (09:41)
--- NOTE | 2025-01-14 13:24 | EKG_ITS ---
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
[2025-01-14] MEDS: INSULIN LISPRO 100 UNIT/ML 3ML VIAL SUBCUT ×2 (13:53→16:31)
--- NOTE | 2025-01-14 15:53 | PM.HP.1 ---
History of Present Illness History of Present Illness Date Patient Seen: 01/14/25 Time Patient Seen: 15:00 Chief complaint: Ulcer on both feet/rt foot infection Narrative: 54-year-old male with PMH of type 2 diabetes mellitus with neuropathy, CKD, HTN, and bilateral lower extremity wounds. He is [facility] by [facility] in [place]. He has been seen several times recently in the hospital for cellulitis and infected wounds. EF by report, he failed oral antibiotics and required admission for IV antibiotics. [facility] Medical History COVID Hypertension Ulcer of right leg Congestive heart failure Diabetes mellitus Ulcer of left lower leg Surgical History History of foot surgery Family History Father Myocardial infarction Mother Diabetes mellitus Brother Diabetes mellitus Social History household members: spouse and children Smoking Status: Former smoker alcohol intake: never Meds Home Medications and Allergies Home Medications ?Medication ?Instructions ?Recorded ?Confirmed ?Type amlodipine 10 mg tablet 10 mg PO DAILY 03/14/18 01/14/25 History insulin lispro 100 unit/mL 12 - 15 unit SUBCUT TID 09/23/22 01/14/25 History subcutaneous pen (Humalog KwikPen (U-100) Insulin) carvedilol 25 mg tablet 12.5 mg PO Q12H 09/09/24 01/14/25 History empagliflozin 10 mg tablet 10 mg PO DAILY 09/09/24 01/14/25 History (Jardiance) ezetimibe 10 mg tablet 10 mg PO DAILY 09/09/24 01/14/25 History insulin glargine U-300 conc 300 30 unit SUBCUT BID 09/09/24 01/14/25 History unit/mL (1.5 mL) subcutaneous pen (Toujeo SoloStar U-300 Insulin) ciprofloxacin HCl 500 mg tablet 500 mg PO BID #14 tabs 09/10/24 01/14/25 Rx (Cipro) doxycycline hyclate 100 mg capsule 100 mg PO BID #14 caps 09/10/24 01/14/25 Rx furosemide 20 mg tablet (Lasix) 20 mg PO DAILY #10 tabs 10/13/24 01/14/25 Rx Allergies Allergy/AdvReac Type Severity Reaction Status Date / Time No Known Drug Allergies Allergy Verified 01/13/25 20:12 Review of Systems Review of Systems Narrative: Denies fever or sweats. Does report chills yesterday. Reports chronic bilateral lower extremity and feet wounds/ulcers and bilateral lower extremity numbness.. Denies chest pain, shortness for breath, nausea/vomiting, lightheadedness or dizziness. Exam Vital Signs (past 8 hours): - 01/14/25 08:02 01/14/25 08:30 01/14/25 09:00 Temperature Pulse Rate 68 70 73 Respiratory Rate 16 17 19 Blood Pressure 143/83 H Pulse Oximetry 96 96 92 Oxygen Delivery Method Nasal Cannula Nasal Cannula Oxygen Flow Rate 2 2 01/14/25 09:30 01/14/25 09:40 01/14/25 10:00 Temperature Pulse Rate 85 80 81 Respiratory Rate 20 Blood Pressure 143/83 H Pulse Oximetry 96 Oxygen Delivery Method Nasal Cannula Oxygen Flow Rate 2 01/14/25 10:00 01/14/25 10:10 01/14/25 10:30 Temperature Pulse Rate 108 H 77 63 Respiratory Rate 18 19 18 Blood Pressure 127/73 124/78 109/63 Pulse Oximetry 96 97 Oxygen Delivery Method Nasal Cannula Nasal Cannula Room Air Oxygen Flow Rate 2 01/14/25 11:00 01/14/25 11:30 01/14/25 12:00 Temperature Pulse Rate 64 84 69 Respiratory Rate 17 18 18 Blood Pressure 105/59 L 127/71 116/79 Pulse Oximetry 98 96 69 L Oxygen Delivery Method Room Air Room Air Oxygen Flow Rate 01/14/25 13:04 01/14/25 14:32 01/14/25 15:19 Temperature 96.5 F L Pulse Rate 71 78 Respiratory Rate 20 Blood Pressure 129/87 Pulse Oximetry 98 96 Oxygen Delivery Method Room Air Oxygen Flow Rate 15 0 Oxygen Delivery Method Room Air Oxygen Flow Rate 0 Narrative Exam Narrative: Vital signs reviewed Alert and oriented, well developed, obese, in no acute distress Oropharynx moist Regular rate and rhythm, no murmur Clear to auscultation bilaterally Soft, nontender, nondistended, positive bowel sounds Grossly nonfocal neuro exam Warm with tense 3+ edema bilateral lower extremities from feet to thighs, multiple ulcers in bilateral pretibial and bilateral feet. Chronic venous stasis changes bilaterally. No erythema or increased warmth. Some non purulent discharge from the ulcers. Pleasant and cooperative Objective ECG Impression: EKG done at 1324 reviewed by me, sinus rhythm with some PVCs, incomplete left bundle branch block, prolonged QTC at 489. Rhythm strip at 1:20 p.m. showed a 12 beat run of nonsustained V-tach. Imaging Chest x-ray: My impression: Right foot x-ray showed stable abnormal 3rd interphalangeal joint space with bony erosion suggestive of chronic osteomyelitis. Radiology also noted a new reactive bony formation of the 5th metatarsal base. Labs 01/14/25 04:23 01/14/25 04:23 Labs: Laboratory Results - last 24 hr 01/13/25 01/13/25 01/14/25: 22:12 04:23 WBC 7.9 7.0 RBC 4.16 L 4.24 L Hgb 10.1 L 10.3 L Hct 31.6 L 32.1 L MCV 75.9 L 75.7 L MCH 24.4 L 24.4 L MCHC 32.1 32.2 RDW 16.2 H 16.0 H Plt Count 242 237 Neut % (Auto) 75.8 H 65.6 Lymph % (Auto) 13.1 L 20.3 L [place] % (Auto) 8.0 10.0 Eos % (Auto) 2.3 3.4 Baso % (Auto) 0.8 0.7 Neut # (Auto) 6000 4600 Lymph # (Auto) 1000 L 1400 [place] # (Auto) 600 700 Eos # (Auto) 200 200 Baso # (Auto) 100 0 ESR 53 H Sodium 139 140 Potassium 4.1 3.6 Chloride 108 H 108 H Carbon Dioxide 22 23 BUN 42 H 40 H Creatinine 3.26 H 3.09 H Estimated GFR 22 L 23 L BUN/Creatinine Ratio 12.9 12.9 Glucose 114 H 139 H POC Whole Bld Glucose 126 H Lactate 0.8 Calcium 8.1 L 7.9 L Total Bilirubin 0.5 AST 21 ALT 11 Alkaline Phosphatase 57 C-Reactive Protein 4.9 H Total Protein 7.7 Albumin 3.7 Globulin 4.0 Albumin/Globulin Ratio 0.9 L Procalcitonin 0.143 01/14/25 01/14/25 07:41 13:35 WBC RBC Hgb Hct MCV MCH MCHC RDW Plt Count Neut % (Auto) Lymph % (Auto) [place] % (Auto) Eos % (Auto) Baso % (Auto) Neut # (Auto) Lymph # (Auto) [place] # (Auto) Eos # (Auto) Baso # (Auto) ESR Sodium Potassium Chloride Carbon Dioxide BUN Creatinine Estimated GFR BUN/Creatinine Ratio Glucose POC Whole Bld Glucose 123 H 155 H Lactate Calcium Total Bilirubin AST ALT Alkaline Phosphatase C-Reactive Protein Total Protein Albumin Globulin Albumin/Globulin Ratio Procalcitonin Assessment & Plan Assessment and plan (1) Bilateral lower leg cellulitis: Status: Acute (2) CKD (chronic kidney disease): Status: Acute (3) Type 2 diabetes mellitus with other skin ulcer: Status: Acute (4) Venous insufficiency (chronic) (peripheral): Status: Acute (5) Type 2 diabetes mellitus with diabetic polyneuropathy: Status: Acute (6) Non-pressure chronic ulcer of left heel and midfoot with fat layer exposed: Status: Acute (7) Non-pressure chronic ulcer of other part of right lower leg with fat layer exposed: Status: Acute (8) Osteomyelitis due to secondary diabetes: Status: Chronic Assessment & Plan narrative: Chronic venous stasis changes Bilateral lower extremity diabetic ulcers -non pressure chronic ulcer of left heel and mid foot with fat layer exposed, non pressure chronic ulcer of other part of the right lower extremity with fat layer exposed, followed by outpatient wound care Reported bilateral lower extremity cellulitis not responsive to oral antibiotics Chronic osteomyelitis, 3rd digit Based on my evaluation, the patient does not appear to have active cellulitis. The bilateral lower extremity changes appear more to be venous stasis. - continue IV for now - MRSA nasal swab - wound care consult Type 2 diabetes mellitus with polyneuropathy and skin ulcers Patient reports that his diabetes is well controlled at home. He states he takes his blood sugar twice a day and is usually in the 120 range. There is no hemoglobin A1c in our records. - Continue lispro and glargine - Continue jardiance - Hgb A1c in am CKD, stage IV GFR <30, prior labs not available in our system. - CTM labs - Avoid nephrotoxins and renally dose meds Prolonged QTc QTc 489 - Avoid QT prolonging meds CHF HTN Clinically stable - Continue lasix and norvasc Code Status: Full DVT Prophylaxis: Enoxaparin Diet: carb controlled Time-Based Coding :: 55 minutes spent with patient and on the chart (including review of chart, obtaining history, exam, reviewing outside data, placing orders, documenting exam and treatment plan, and counseling patient) on [DATE].
[2025-01-14 18:21] LABS: MRSA (Nasal) PCR DETECTED (Not Detect)
[2025-01-15 05:47] LABS: Add Manual Diff / Slide Review NO; Hematocrit 32.3 % (41-53); Hemoglobin 10.3 g/dL (13.5-17.5); Lymphocytes Absolute Auto 1200 /uL (1100-4500); Mean Corpuscular HGB Conc 32.0 % (30-36); Mean Corpuscular Hemoglobin 24.2 PG (26-34); Mean Corpuscular Volume 75.7 fL (80-100); Platelet Count 276 X10^3/uL (150-400)
[2025-01-15 06:03] LABS: Blood Urea Nitrogen 42 mg/dL (9-20); Calcium 8.2 mg/dL (8.4-10.2); Carbon Dioxide 23 mmol/L (22-32); Chloride 109 mmol/L (98-107); Estimated Glomerular Filt Rate 24 mL/min (>60); Glucose 77 mg/dL (70-99); HEMOLYSIS < 15 (0-50); Potassium 3.9 mmol/L (3.4-5.1); Sodium 140 mmol/L (137-145)
[2025-01-15 06:04] LABS: Blood Urea Nitrogen 42 mg/dL (9-20); Calcium 8.2 mg/dL (8.4-10.2); Carbon Dioxide 22 mmol/L (22-32); Chloride 108 mmol/L (98-107); Estimated Glomerular Filt Rate 25 mL/min (>60); Glucose 77 mg/dL (70-99); HEMOLYSIS < 15 (0-50); Potassium 4.0 mmol/L (3.4-5.1); Sodium 141 mmol/L (137-145)
[2025-01-15 06:05] LABS: Hemoglobin A1C% w Est Avg Glu 7.3 % (4.0-6.0)
[2025-01-15 07:40] VITALS: BP 115/79; PULSE 68; RESP 16; TEMP 36.1; O2SAT 97
--- NOTE | 2025-01-15 08:06 | P.PN_ITS ---
Subjective Subjective Interval history: Subjective 54-year-old male with PMH of type 2 diabetes mellitus with neuropathy, CKD, HTN, and bilateral lower extremity wounds. He is followed by the [facility] in [place]. He has been seen several times recently in the hospital for cellulitis and infected wounds. EF by report, he failed oral antibiotics and required admission for IV antibiotics. Objective Vital signs reviewed and unremarkable Alert and oriented, well developed, obese, in no acute distress Oropharynx moist Regular rate and rhythm, no murmur Clear to auscultation bilaterally Soft, nontender, nondistended, positive bowel sounds Grossly nonfocal neuro exam Warm with tense 3+ edema bilateral lower extremities from feet to thighs, multiple ulcers in bilateral pretibial and bilateral feet. Chronic venous stasis changes bilaterally. No erythema or increased warmth. Some non purulent discharge from the ulcers. Pleasant and [facility] Blood cultures no growth today, laboratory studies unchanged from admission, most notable for creatinine 2.9 and GFR 25. Blood glucose this morning was low at 69, hemoglobin A1c 7.3. A&P Chronic venous stasis changes Bilateral lower extremity diabetic ulcers -non pressure chronic ulcer of left heel and mid foot with fat layer exposed, non pressure chronic ulcer of other part of the right lower extremity with fat layer exposed, followed by outpatient wound care Reported bilateral lower extremity cellulitis not responsive to oral antibiotics Chronic osteomyelitis, 3rd digit Based on my evaluation, the patient does not appear to have active cellulitis. The bilateral lower extremity changes appear more to be venous stasis. Blood cultures NGTD - continue IV for now - MRSA nasal swab - wound care consult Type 2 diabetes mellitus with polyneuropathy and skin ulcers Patient reports that his diabetes is well controlled at home. He states he takes his blood sugar twice a day and is usually in the 120 range. Hgb A1c 7.3. - Continue lispro and glargine - Jardiance on hold as non-formulary - Hgb A1c in am CKD, stage IV GFR <30, prior labs not available in our system. - CTM labs especially in the setting of lasix use - Avoid nephrotoxins and renally dose meds Prolonged QTc QTc 489 - Avoid QT prolonging meds CHF HTN Clinically stable - Continue lasix and norvasc Exam Vital Signs (past 8 hours): - 01/15/25 07:40 01/15/25 07:40 Temperature 97.0 F L Pulse Rate 68 Respiratory Rate 16 Blood Pressure 115/79 Pulse Oximetry 97 Oxygen Delivery Method Room Air Oxygen Flow Rate 0 Oxygen Delivery Method Room Air Oxygen Flow Rate 0 Objective Labs 01/15/25 05:30 01/15/25 05:30 Labs: Laboratory Results - last 24 hr 01/14/25 01/14/25 01/14/25 13:35 16:11 17:25 WBC RBC Hgb Hct MCV MCH MCHC RDW Plt Count Neut % (Auto) Lymph % (Auto) [place] % (Auto) Eos % (Auto) Baso % (Auto) Neut # (Auto) Lymph # (Auto) [place] # (Auto) Eos # (Auto) Baso # (Auto) Sodium Potassium Chloride Carbon Dioxide BUN Creatinine Estimated GFR BUN/Creatinine Ratio Glucose POC Whole Bld Glucose 155 H 154 H Hemoglobin A1c Calcium Nasal Screen MRSA (PCR) Detected H Random Vancomycin 01/14/25 01/15/25 01/15/25 20:31 05:30 05:30 WBC 7.2 RBC 4.27 L Hgb 10.3 L Hct 32.3 L MCV 75.7 L MCH 24.2 L MCHC 32.0 RDW 16.4 H Plt Count 276 Neut % (Auto) 70.6 Lymph % (Auto) 16.0 L [place] % (Auto) 6.5 Eos % (Auto) 5.9 H Baso % (Auto) 1.0 Neut # (Auto) 5100 Lymph # (Auto) 1200 [place] # (Auto) 500 Eos # (Auto) 400 Baso # (Auto) 100 Sodium 140 141 Potassium 3.9 Chloride Carbon Dioxide BUN Creatinine Estimated GFR BUN/Creatinine Ratio Glucose POC Whole Bld Glucose 142 H Hemoglobin A1c Calcium Nasal Screen MRSA (PCR) Random Vancomycin 01/15/25 01/15/25 01/15/25 05:30 05:30 05:30 WBC RBC Hgb Hct MCV MCH MCHC RDW Plt Count Neut % (Auto) Lymph % (Auto) [place] % (Auto) Eos % (Auto) Baso % (Auto) Neut # (Auto) Lymph # (Auto) [place] # (Auto) Eos # (Auto) Baso # (Auto) Sodium Potassium 4.0 Chloride 109 H 108 H Carbon Dioxide 23 22 BUN 42 H Creatinine Estimated GFR BUN/Creatinine Ratio Glucose POC Whole Bld Glucose Hemoglobin A1c Calcium Nasal Screen MRSA (PCR) Random Vancomycin 01/15/25 01/15/25 01/15/25 05:30 05:30 05:30 WBC RBC Hgb Hct MCV MCH MCHC RDW Plt Count Neut % (Auto) Lymph % (Auto) [place] % (Auto) Eos % (Auto) Baso % (Auto) Neut # (Auto) Lymph # (Auto) [place] # (Auto) Eos # (Auto) Baso # (Auto) Sodium Potassium Chloride Carbon Dioxide BUN 42 H Creatinine 3.02 H 2.90 H Estimated GFR 24 L 25 L BUN/Creatinine Ratio 13.9 Glucose POC Whole Bld Glucose Hemoglobin A1c Calcium Nasal Screen MRSA (PCR) Random Vancomycin 01/15/25 01/15/25 01/15/25 05:30 05:30 05:30 WBC RBC Hgb Hct MCV MCH MCHC RDW Plt Count Neut % (Auto) Lymph % (Auto) [place] % (Auto) Eos % (Auto) Baso % (Auto) Neut # (Auto) Lymph # (Auto) [place] # (Auto) Eos # (Auto) Baso # (Auto) Sodium Potassium Chloride Carbon Dioxide BUN Creatinine Estimated GFR BUN/Creatinine Ratio 14.5 Glucose 77 77 POC Whole Bld Glucose Hemoglobin A1c 7.3 H Calcium 8.2 L 8.2 L Nasal Screen MRSA (PCR) Random Vancomycin 11.9 01/15/25 07:31 WBC RBC Hgb Hct MCV MCH MCHC RDW Plt Count Neut % (Auto) Lymph % (Auto) [place] % (Auto) Eos % (Auto) Baso % (Auto) Neut # (Auto) Lymph # (Auto) [place] # (Auto) Eos # (Auto) Baso # (Auto) Sodium Potassium Chloride Carbon Dioxide BUN Creatinine Estimated GFR BUN/Creatinine Ratio Glucose POC Whole Bld Glucose 69 L Hemoglobin A1c Calcium Nasal Screen MRSA (PCR) Random Vancomycin [facility] Medical History COVID Hypertension Ulcer of right leg Congestive heart failure Diabetes mellitus Ulcer of left lower leg Surgical History History of foot surgery Family History Father Myocardial infarction Mother Diabetes mellitus Brother Diabetes mellitus Social History household members: spouse and children Smoking Status: Former smoker alcohol intake: never Assessment & Plan Time-Based Coding :: [TOTAL MINUTES] spent with patient and on the chart (including review of chart, obtaining history, exam, reviewing outside data, placing orders, documenting exam and treatment plan, and counseling patient) on [DATE].
[2025-01-15] MEDS: ENOXAPARIN 40 MG/0.4 ML SYRINGE SUBCUT (08:12)
[2025-01-15] MEDS: FUROSEMIDE 20 MG TABLET PO (08:12)
[2025-01-15] MEDS: SODIUM CHLORIDE 0.9% FLUSH 10 ML IV (08:12)
[2025-01-15] MEDS: EZETIMIBE 10 MG TABLET PO (08:37)
[2025-01-15] MEDS: CLOPIDOGREL 75 MG TABLET PO (08:37)
[2025-01-15] MEDS: INSULIN GLARGINE 100 UNIT/ML 3ML PEN 24 UNIT SUBCUT (08:48)
[2025-01-15] MEDS: INSULIN LISPRO 100 UNIT/ML 3ML VIAL SUBCUT ×2 (11:45→16:39)
--- NOTE | 2025-01-15 13:43 | PM.DS.1 ---
History of Present Illness History of Present Illness Chief complaint: Ulcer on both feet/rt foot infection Narrative: 54-year-old male with PMH of type 2 diabetes mellitus with neuropathy, CKD, HTN, and bilateral lower extremity wounds. He is followed by the [facility] in [place]. He has been seen several times recently in the hospital for cellulitis and infected wounds. By report, he failed oral antibiotics as an outpatient. Discharge Providers Provider Date of admission: 01/14/25 01:36 Discharge Date: 01/15/25 Primary care physician: Toño Ovalles MD Consults: 01/14/25 15:32 Consult to Inpatient Wound Care Nurse Routine Comment: Reason for consultation: multiple diabetic foot ulcers, please provide care while in the hospital Has provider been notified: No Discharge provider: Mariaa Tai MD Summary Hospital Course Hospital Course: A&P Chronic venous stasis changes Bilateral lower extremity diabetic ulcers -non pressure chronic ulcer of left heel and mid foot with fat layer exposed, non pressure chronic ulcer of other part of the right lower extremity with fat layer exposed, followed by outpatient wound care Reported bilateral lower extremity cellulitis not responsive to oral antibiotics Chronic osteomyelitis, 3rd digit Based on my evaluation, the patient appears to have chronic venous stasis changes as opposed to cellulitis. However, some of the wounds have mild purulence. Patient is MRSA positive and has a chronic osteomyelitis. He has been treated with vanco and cephalosporing while here. Wound care evaluated the patient and made some recommendations for care until patient can follow up with the wound care clinic. Blood cultures NGTD and foot wound culture with GNB. Will discharge on keflex and doxy. He has a follow up with wound care on 01/15 Type 2 diabetes mellitus with polyneuropathy and skin ulcers Patient reports that his diabetes is well controlled at home. He states he takes his blood sugar twice a day and is usually in the 120 range. Hgb A1c 7.3. Patient to resume usual outpatient meds at discharge. CKD, stage IV GFR <30. Will need outpatient monitoring, renally dosing of new meds as needed and avoidance of nephrotoxins. - CTM labs especially in the setting of lasix use - Avoid nephrotoxins and renally dose meds Prolonged QTc QTc 489. Avoid QT prolonging meds CHF HTN Clinically stable Status at Discharge Cognitive/behavioral status at discharge: at baseline, oriented Overall status at discharge: patient is progressing back to baseline Time Spent with Patient Time spent: Greater than 30 minutes Exam Vital Signs (past 8 hours): - 01/15/25 07:40 01/15/25 07:40 Temperature 97.0 F L Pulse Rate 68 Respiratory Rate 16 Blood Pressure 115/79 Pulse Oximetry 97 Oxygen Delivery Method Room Air Oxygen Flow Rate 0 Oxygen Delivery Method Room Air Oxygen Flow Rate 0 Narrative Exam Narrative: Vital signs reviewed and unremarkable Alert and oriented, well developed, obese, in no acute distress Oropharynx moist Regular rate and rhythm, no murmur Clear to auscultation bilaterally Soft, nontender, nondistended, positive bowel sounds Grossly nonfocal neuro exam Warm with tense 3+ edema bilateral lower extremities from feet to thighs, multiple ulcers in bilateral pretibial and bilateral feet. Chronic venous stasis changes bilaterally. No erythema or increased warmth. Some non purulent discharge from the ulcers. Pleasant and cooperative Objective Labs 01/15/25 05:30 01/15/25 05:30 Labs: Laboratory Results - last 24 hr 01/14/25 01/14/25 01/14/25 16:11 17:25 20:31 WBC RBC Hgb Hct MCV MCH MCHC RDW Plt Count Neut % (Auto) Lymph % (Auto) [place] % (Auto) Eos % (Auto) Baso % (Auto) Neut # (Auto) Lymph # (Auto) [place] # (Auto) Eos # (Auto) Baso # (Auto) Sodium Potassium Chloride Carbon Dioxide BUN Creatinine Estimated GFR BUN/Creatinine Ratio Glucose POC Whole Bld Glucose 154 H 142 H Hemoglobin A1c Calcium Nasal Screen MRSA (PCR) Detected H Random Vancomycin 01/15/25 01/15/25 01/15/25 05:30 05:30 05:30 WBC 7.2 RBC 4.27 L Hgb 10.3 L Hct 32.3 L MCV 75.7 L MCH 24.2 L MCHC 32.0 RDW 16.4 H Plt Count 276 Neut % (Auto) 70.6 Lymph % (Auto) 16.0 L [place] % (Auto) 6.5 Eos % (Auto) 5.9 H Baso % (Auto) 1.0 Neut # (Auto) 5100 Lymph # (Auto) 1200 [place] # (Auto) 500 Eos # (Auto) 400 Baso # (Auto) 100 Sodium 140 141 Potassium 3.9 4.0 Chloride 109 H Carbon Dioxide BUN Creatinine Estimated GFR BUN/Creatinine Ratio Glucose POC Whole Bld Glucose Hemoglobin A1c Calcium Nasal Screen MRSA (PCR) Random Vancomycin 01/15/25 01/15/25 01/15/25 05:30 05:30 05:30 WBC RBC Hgb Hct MCV MCH MCHC RDW Plt Count Neut % (Auto) Lymph % (Auto) [place] % (Auto) Eos % (Auto) Baso % (Auto) Neut # (Auto) Lymph # (Auto) [place] # (Auto) Eos # (Auto) Baso # (Auto) Sodium Potassium Chloride 108 H Carbon Dioxide 23 22 BUN 42 H 42 H Creatinine 3.02 H Estimated GFR BUN/Creatinine Ratio Glucose POC Whole Bld Glucose Hemoglobin A1c Calcium Nasal Screen MRSA (PCR) Random Vancomycin 01/15/25 01/15/25 01/15/25 05:30 05:30 05:30 WBC RBC Hgb Hct MCV MCH MCHC RDW Plt Count Neut % (Auto) Lymph % (Auto) [place] % (Auto) Eos % (Auto) Baso % (Auto) Neut # (Auto) Lymph # (Auto) [place] # (Auto) Eos # (Auto) Baso # (Auto) Sodium Potassium Chloride Carbon Dioxide BUN Creatinine 2.90 H Estimated GFR 24 L 25 L BUN/Creatinine Ratio 13.9 14.5 Glucose 77 POC Whole Bld Glucose Hemoglobin A1c Calcium Nasal Screen MRSA (PCR) Random Vancomycin 01/15/25 01/15/25 01/15/25 05:30 05:30 07:31 WBC RBC Hgb Hct MCV MCH MCHC RDW Plt Count Neut % (Auto) Lymph % (Auto) [place] % (Auto) Eos % (Auto) Baso % (Auto) Neut # (Auto) Lymph # (Auto) [place] # (Auto) Eos # (Auto) Baso # (Auto) Sodium Potassium Chloride Carbon Dioxide BUN Creatinine Estimated GFR BUN/Creatinine Ratio Glucose 77 POC Whole Bld Glucose 69 L Hemoglobin A1c 7.3 H Calcium 8.2 L 8.2 L Nasal Screen MRSA (PCR) Random Vancomycin 11.9 01/15/25 11:18 WBC RBC Hgb Hct MCV MCH MCHC RDW Plt Count Neut % (Auto) Lymph % (Auto) [place] % (Auto) Eos % (Auto) Baso % (Auto) Neut # (Auto) Lymph # (Auto) [place] # (Auto) Eos # (Auto) Baso # (Auto) Sodium Potassium Chloride Carbon Dioxide BUN Creatinine Estimated GFR BUN/Creatinine Ratio Glucose POC Whole Bld Glucose 140 H Hemoglobin A1c Calcium Nasal Screen MRSA (PCR) Random Vancomycin [facility] Medical History COVID Hypertension Ulcer of right leg Congestive heart failure Diabetes mellitus Ulcer of left lower leg Surgical History History of foot surgery Family History Father Myocardial infarction Mother Diabetes mellitus Brother Diabetes mellitus Social History household members: spouse and children Smoking Status: Former smoker alcohol intake: never Discharge Plan Discharge Plan Patient Disposition: Home Provider Discharge Comment: Patient can discharge after wound care provided and when his ride is available. Discharge orders & Medications Prescriptions: New doxycycline hyclate 100 mg capsule 100 mg PO BID 7 Days Qty: 14 0RF cephalexin 500 mg capsule 500 mg PO QID 7 Days Qty: 28 0RF Continued amlodipine 10 mg Tablet 10 mg PO DAILY furosemide [Lasix] 20 mg tablet 20 mg PO DAILY Qty: 10 0RF insulin lispro [Humalog KwikPen Insulin] 100 unit/mL insulin pen 12 - 15 unit SUBCUT TID Patient Comments: [NO ORIGINAL SIG] ezetimibe 10 mg tablet 10 mg PO DAILY Jardiance 10 mg tablet 10 mg PO DAILY insulin glargine U-300 conc [Toujeo SoloStar U-300 Insulin] 300 unit/mL (1.5 mL) insulin pen 30 unit SUBCUT BID Patient Comments: [NO ORIGINAL SIG] carvedilol 25 mg Tablet 12.5 mg PO Q12H clopidogrel 75 mg tablet 75 mg PO DAILY Discontinued doxycycline hyclate 100 mg capsule 100 mg PO BID Qty: 14 0RF ciprofloxacin HCl [Cipro] 500 mg tablet 500 mg PO BID Qty: 14 0RF Follow up/Referrals: Toño Ovalles MD [Primary Care Provider, Family Practice] Activity Restrictions/Additional Instructions: Follow up with the wound care clinic as scheduled for tomorrow. Follow-up with your primary care provider within 2 weeks. Take antibiotics as prescribed. Discharge Health Status Multidrug resistant organism: MRSA Diet/Activity/Treatments Diet: Carb-consistent/Diabetic Skin/Wound/Dressing Care Skin care: Per Wound Care Clinic Visit Report/Discharge Packet Stand Alone Forms: Patient Portal/API, Stroke Signs & Symptoms Discharge Data Primary Care Provider: Toño Ovalles
--- NOTE | 2025-01-15 14:27 | CM.DANOTE ---
Addendum entered by CHUCHO Marte 01/15/25 15:35: ADD: Per , pt medically stable to d/c home today on po abx. SW met bedside with pt and explained role and he confirms he lives in [place] with supportive family and is frustrated with his ongoing cellulitis and osteo and is hopeful to get the infection under control. Pt confirms he is able to ambulate, although somewhat painful. Pt has appointment tomorrow at [facility] that he will go to. Pt confirms that family will provide transport home for him today but will be after dinner time as they are working and he denies having Medicaid Transportation. Due to pt's wounds and mobility, taxi voucher not likely a safe option. RN aware and will have pt's pwk and instructions provided prior to family transport this evening. Pt denies any further needs at this time and preference is home tonight. BF Original Note: Patient is a 54 yo male who was admitted INPT Status on 01/14/25 for Bilateral leg cellulitis/failed outpt. Pt has [employer]ONARDO BARRAGAN for insurance and his PCP is Toño Ovalles at [facility]. EMR was reviewed. 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 Wound COnsult order placed and MD anticipates possible d/c later today after consult on po abx. SW called [facility] and alerted them to consult order. SW attempted to meet bedside with pt and Wound RN kindly bedside and consulting with recommendations for ongoing wound care and then will update MD. Pt already established with outpt Wound Clinic in [facility] due to his insurance and PCP in [facility] already. Plan: SW to meet bedside with pt to confirm plan of home with outpt f/u after Wound RN consult completed. 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 No Advance Directives No on File History Provided By Patient,Medical Record Has Patient been No admitted in last 30 days? Comment Last admit in Sep 2024 and went home Prior Living Apartment/Condo Arrangements Household Members spouse,children Type of Drives own vehicle transporation used prior to admit Independent with ADL Yes 's Is patient alert and Yes oriented? Needs Assistance Managing Medications,Home Chores / Shopping With Caregiver for No Another Community Services Wound Care used prior to admission: Barriers to No Discharge Comment He has supportive family members. Discharge Plan Home Transportation Family vehicle Arrangement Referrals Initiated None needed Additional Comment Patient is already established at wound clinic in [facility] Updated Yes in Patient Room with name and ext. # of Beveler Review Status In Process Please Provide Date 01/15/25 Initial DC Assessment Was Performed Next Review Type Continued Stay Review
== END 2025-01-15 23:00 | disposition home or self-care (01) ==
LOC: ED 01-14 01:17 → AC 01-14 07:07
PROVIDERS: Emergency Medicine; Internal Medicine; Internal Medicine Infectious Disease; Pharmacist Pharmacist Clinician (PhC)/ Clinical Pharmacy Specialist; Admitting Provider Internal Medicine; Emergency Provider Emergency Medicine; PCP Family Medicine; Referring Provider Emergency Medicine; Visit Provider Internal Medicine
DX: L03.116 Cellulitis of left lower limb (principal); L03.115 Cellulitis of right lower limb; L97.422 Non-pressure chronic ulcer of left heel and midfoot with fat layer exposed; L97.812 Non-pressure chronic ulcer of other part of right lower leg with fat layer exposed; E11.621 Type 2 diabetes mellitus with foot ulcer; E11.40 Type 2 diabetes mellitus with diabetic neuropathy, unspecified; L97.919 Non-pressure chronic ulcer of unspecified part of right lower leg with unspecified severity; E11.69 Type 2 diabetes mellitus with other specified complication; M86.671 Other chronic osteomyelitis, right ankle and foot; E11.22 Type 2 diabetes mellitus with diabetic chronic kidney disease; I13.0 Hypertensive heart and chronic kidney disease with heart failure and stage 1 through stage 4 chronic kidney disease, or unspecified chronic kidney disease; N18.4 Chronic kidney disease, stage 4 (severe); I87.2 Venous insufficiency (chronic) (peripheral); Z79.84 Long term (current) use of oral hypoglycemic drugs; E66.9 Obesity, unspecified; Z87.891 Personal history of nicotine dependence; I50.9 Heart failure, unspecified
CPT/HCPCS: 36415; 73630; 80048; 80053; 80202; 82962; 83036; 83605; 84145; 85025; 85651; 86140; 87040; 87070; 87075; 87077; 87186; 87205; 87797; 93005; 93010; 96365; 96366; 96367; 96372; 99284; G0378; J0692; J0696; J1650; J1815; J3374; J3375; J7050